=== PATIENT | male | born 1945 | race Caucasian/White ===

== ENCOUNTER 2024-03-29 14:06 | Emergency (ER) | payer SELFPAY ==
--- NOTE | 2024-03-29 14:46 | ED ---
General Adult HPI - General Chief complaint: Animal Bite Stated complaint: Animal bite Time Seen by Provider: 03/29/24 14:26 Source: patient, RN notes reviewed, old records reviewed Mode of arrival: ambulatory Limitations: no limitations - History of Present Illness Initial comments: 78-year-old male presenting with dog bite to the left arm. This occurred just prior to arrival. [place], a pit bull suddenly approached him and bit the left forearm. This was unprovoked. Police report was made and the dog is observable. The owners indicated that the dog was fully vaccinated. Patient is uncertain of his tetanus status. He has pain at the site of injury without significant bleeding. - Related Data Previous Rx's Medication Instructions Recorded Amoxic-Pot Clav 875-125Mg 1 tab PO Q12HR 5 Days #10 tab 03/29/24 [Augmentin 875-125] Allergies Allergy/AdvReac Type Severity Reaction Status Date / Time No Known Allergies Allergy Verified 03/29/24 14:13 Review of Systems ROS Statement: Those systems with pertinent positive or pertinent negative responses have been documented in the HPI. ROS Other: All systems not noted in ROS Statement are negative. Past Medical History Past Medical History: No Reported History Smoking Status: Never smoker Past Alcohol Use History: Occasional Past Drug Use History: None Reported General Exam Limitations: no limitations General appearance: alert, in no apparent distress Head exam: Present: atraumatic, normocephalic Eye exam: Present: normal appearance, PERRL ENT exam: Present: normal exam Neck exam: Present: normal inspection. Absent: tenderness, meningismus Respiratory exam: Present: normal lung sounds bilaterally. Absent: respiratory distress, wheezes Cardiovascular Exam: Present: regular rate, normal rhythm Extremities exam: Present: other (3 separate puncture wounds on the left palmar surface of the mid forearm. Mild associated bruising. No repairable laceration. Full range of motion of the 5 digits on the left hand. Distal pulses intact.) Course Vital Signs 03/29/24 14:11 Temperature 97.5 F L Pulse Rate 70 Respiratory 18 Rate Blood Pressure 108/45 O2 Sat by Pulse 97 Oximetry Medical Decision Making - Medical Decision Making Was pt. sent in by a medical professional or institution (, PA, ORACLE DEVELOPER, urgent care, hospital, or prison...) When possible be specific @ -No Did you speak to anyone other than the patient for history (EMS, parent, family, police, friend...)? What history was obtained from this source @ -No Did you review nursing and triage notes (agree or disagree)? Why? @ -I reviewed and agree with nursing and triage notes Were old charts reviewed (outside hosp., previous admission, EMS record, old EKG, old radiological studies, urgent care reports/EKG's, prison records)? Report findings @ -No old charts were reviewed Differential Diagnosis: Traumatic injury from dog bite, puncture wound, infection, laceration, EKG interpreted by me (3pts min.). @ -As above X-rays interpreted by me (1pt min.). @ -None done CT interpreted by me (1pt min.). @ -None done U/S interpreted by me (1pt. min.). @ -None done What testing was considered but not performed or refused? (CT, X-rays, U/S, labs)? Why? @ -None What meds were considered but not given or refused? Why? @ -None Did you discuss the management of the patient with other professionals (professionals i.e. , PA, ORACLE DEVELOPER, lab, RT, psych nurse, director social, railway yard assistant, teacher, contracts officer, welfare case worker)? Give summary @ -No Was smoking cessation discussed for >3mins.? @ -No Was critical care preformed (if so, how long)? @ -No Were there social determinants of health that impacted care today? How? (Homelessness, low income, unemployed, alcoholism, drug addiction, transportation, low edu. Level, literacy, decrease access to med. care, group home, rehab)? @ -No Was there de-escalation of care discussed even if they declined (Discuss DNR or withdrawal of care, Hospice)? DNR status @ -No What co-morbidities impacted this encounter? (DM, HTN, Smoking, COPD, CAD, Cancer, CVA, ARF, Chemo, Hep., AIDS, mental health diagnosis, sleep apnea, morbid obesity)? @ -None Was patient admitted / discharged? Hospital course, mention meds given and route, prescriptions, significant lab abnormalities, going to OR and other perti nent info. @ -78-year-old male presenting with a dog bite to the left forearm. Puncture wounds only, no repairable laceration. Tetanus is updated. Patient started on prophylactic antibiotics. I was able to extensively irrigate the puncture wounds. The dog is observable and a police report has been made. Undiagnosed new problem with uncertain prognosis? @ -No Drug Therapy requiring intensive monitoring for toxicity (Heparin, Nitro, Insulin, Cardizem)? @ -No Were any procedures done? @ -No Diagnosis/symptom? @ -Dog bite Acute, or Chronic, or Acute on Chronic? @Acute Uncomplicated (without systemic symptoms) or Complicated (systemic symptoms)? @ -Default Side effects of treatment? @ -No Exacerbation, Progression, or Severe Exacerbation? @ -No Poses a threat to life or bodily function? How? (Chest pain, [place], [place], pneumonia, PE, COPD, DKA, ARF, appy, cholecystitis, CVA, Diverticulitis, Homicidal, Suicidal, threat to staff... and all critical care pts) @ -No Disposition Clinical Impression: Dog bite Disposition: HOME SELF-CARE Instructions (If sedation given, give patient instructions): Animal Bite (ED) Prescriptions: Amoxic-Pot Clav 875-125Mg [Augmentin 875-125] 1 tab PO Q12HR 5 Days #10 tab Is patient prescribed a controlled substance at d/c from ED?: No Referrals: Nonstaff,Physician [Primary Care Provider] - 1-2 days Time of Disposition: 14:45
[2024-03-29] MEDS: AMOXIC-POT CLAV 875-125MG 1 EACH TAB PO STA (14:47)
[2024-03-29] MEDS: DIPH,PERTUS(ACELL)TETVAC-LF 0.5 ML VIAL IM ONE (14:48)
[2024-03-29 15:00] VITALS: BP 121/76; PULSE 74; RESP 17; TEMP 98
== END 2024-03-29 15:00 | disposition home or self-care (01) ==
LOC: EC 14:06
DX: S41.152A Open bite of left upper arm, initial encounter (principal); S51.832A Puncture wound without foreign body of left forearm, initial encounter; Z23 Encounter for immunization; W54.0XXA Bitten by dog, initial encounter
CPT/HCPCS: 90471; 90715; 99283

== ENCOUNTER 2024-05-13 13:55 | Observation (INO) | payer OTHER ==
--- NOTE | 2024-05-13 14:31 | ED ---
General Adult HPI - General Chief complaint: Chest Pain Stated complaint: Covid +,LUZMA Time Seen by Provider: 05/13/24 14:05 Source: patient, RN notes reviewed, old records reviewed Mode of arrival: ambulatory Limitations: no limitations - History of Present Illness Initial comments: Is a 78-year-old male who presents to the emergency department stating that he woke up today had a headache and some chest pain and was mildly short of breath and stated that he did not feel very well. Patient states he took a COVID test and it was positive. Patient states his chest pain is right in the center of her chest and got pretty significant especially when he exerted himself upon walking into the building. Patient denies any fever or chills. Patient denies abdominal pain patient has any nausea vomiting diarrhea - Related Data Previous Rx's Medication Instructions Recorded Amoxic-Pot Clav 875-125Mg 1 tab PO Q12HR 5 Days #10 tab 03/29/24 [Augmentin 875-125] Allergies Allergy/AdvReac Type Severity Reaction Status Date / Time No Known Allergies Allergy Verified 05/13/24 14:04 Review of Systems ROS Statement: Those systems with pertinent positive or pertinent negative responses have been documented in the HPI. ROS Other: All systems not noted in ROS Statement are negative. Past Medical History Past Medical History: No Reported History Smoking Status: Never smoker Past Alcohol Use History: Occasional Past Drug Use History: None Reported General Exam - General Exam Comments Initial Comments: GENERAL: Patient is well-developed and well-nourished. Patient is nontoxic and well- hydrated and is in mild distress. ENT: Neck is soft and supple. No significant lymphadenopathy is noted. Oropharynx is clear. Moist mucous membranes. Neck has full range of motion without eliciting any pain. EYES: The sclera were anicteric and conjunctiva were pink and moist. Extraocular movements were intact and pupils were equal round and reactive to light. Eyelids were unremarkable. PULMONARY: Unlabored respirations. Good breath sounds bilaterally. No audible rales rhonchi or wheezing was noted. CARDIOVASCULAR: There is a regular rate and rhythm without any murmurs gallops or rubs. ABDOMEN: Soft and nontender with normal bowel sounds. SKIN: Skin is clear with no lesions or rashes and otherwise unremarkable. NEUROLOGIC: Patient is alert and oriented x3. Cranial nerves II through XII are grossly intact. Motor and sensory are also intact. Normal speech, volume and content. Symmetrical smile. MUSCULOSKELETAL: Normal extremities with adequate strength and full range of motion. LYMPHATICS: No significant lymphadenopathy is noted PSYCHIATRIC: Normal psychiatric evaluation. Limitations: no limitations Course Vital Signs 05/13/24 05/13/24 05/13/24 14:02 14:05 15:05 Temperature 98.4 F Pulse Rate 75 65 68 Respiratory 18 16 16 Rate Blood Pressure 189/80 173/78 168/80 O2 Sat by Pulse 95 99 98 Oximetry 05/13/24 16:00 Temperature Pulse Rate 68 Respiratory 16 Rate Blood Pressure 170/86 O2 Sat by Pulse 98 Oximetry Medical Decision Making - Medical Decision Making EKG is interpreted by myself EKG shows a sinus rhythm at 73 bpm parables 180 QRS is 122 QT interval is 405 QTc is 430. Patient's EKG shows no ST segment elevation however there is some slight ST segment depression in leads V3 and V4 patient also has a right bundle branch block. was pt. sent in by a medical professional or institution (, PA, KALSOMINER, urgent care, hospital, or [facility]...) When possible be specific @ -No Did you speak to anyone other than the patient for history (EMS, parent, family, police, friend...)? What history was obtained from this source @ -No Did you review nursing and triage notes (agree or disagree)? Why? @ -I reviewed and agree with nursing and triage notes Were old charts reviewed (outside hosp., previous admission, EMS record, old EKG, old radiological studies, urgent care reports/EKG's, [facility] records)? Report findings @ -No old charts were reviewed Differential Diagnosis? @ -Differential Chest Pain: Stable Angina, Unstable Angina, STEMI, NSTEMI Aortic Dissection, Pneumothorax, Musculoskeletal, Esophageal Spasm GERD, Cholecystitis, Pancreatitis, Zoster, this is not meant to be an all-inclusive list. EKG interpreted by me (3pts min.). @ -As above X-rays interpreted by me (1pt min.). @ -Chest x-ray shows no acute abnormality CT interpreted by me (1pt min.). @ -None done U/S interpreted by me (1pt. min.). @ -None done What testing was considered but not performed or refused? (CT, X-rays, U/S, labs)? Why? @ -None What meds were considered but not given or refused? Why? @ -None Did you discuss the management of the patient with other professionals (professionals i.e. , PA, KALSOMINER, lab, RT, psych nurse, oncology social work, donor relations coordinator, teacher, founder chairman and chief creative officer, showcase trimmer)? Give summary @ -I spoke with Dr. David he agreed to admit the patient admit the patient I wrote admitting orders Was smoking cessation discussed for >3mins.? @ -No Was critical care preformed (if so, how long)? @ -No Were there social determinants of health that impacted care today? How? (Homelessness, low income, unemployed, alcoholism, drug addiction, transportation, low edu. Level, literacy, decrease access to med. care, fdc, rehab)? @ -No Was there de-escalation of care discussed even if they declined (Discuss DNR or withdrawal of care, Hospice)? DNR status @ -No What co-morbidities impacted this encounter? (DM, HTN, Smoking, COPD, CAD, Cancer, CVA, ARF, Chemo, Hep., AIDS, mental health diagnosis, sleep apnea, morbid obesity)? @ -None Was patient admitted / discharged? Hospital course, mention meds given and route, prescriptions, significant lab abnormalities, going to OR and other pertinent info. @ -I went back into the room to reevaluate the patient patient continued to have substernal chest pain that radiated to his back. Undiagnosed new problem with uncertain prognosis? @ -No Drug Therapy requiring intensive monitoring for toxicity (Heparin, Nitro, Insulin, Cardizem)? @ -No Were any procedures done? @ -No Diagnosis/symptom? @ -COVID Acute, or Chronic, or Acute on Chronic? @ -Acute Uncomplicated (without systemic symptoms) or Complicated (systemic symptoms)? @ -Complicated Side effects of treatment? @ -No Exacerbation, Progression, or Severe Exacerbation? @ -No Poses a threat to life or bodily function? How? (Chest pain, [place], [place], pneumonia, PE, COPD, DKA, ARF, appy, cholecystitis, CVA, Diverticulitis, Homicidal, Suicidal, threat to staff... and all critical care pts) @ -No Diagnosis/symptom? @ -Chest pain Acute, or Chronic, or Acute on Chronic? @ -Acute Uncomplicated (without systemic symptoms) or Complicated (systemic symptoms)? @ -Complicated Side effects of treatment? @ -None Exacerbation, Progression, or Severe Exacerbation] @ -No Poses a threat to life or bodily function? @ -Yes this could lead to an [place] and endorgan dysfunction - Lab Data Result diagrams: 05/13/24 14:22 05/13/24 14:22 Lab Results 05/13/24 05/13/24 05/13/24 Range/Units 14:22 14:22 14:22 WBC 8.1 (3.8-10.6) k/uL RBC 6.19 H (4.30-5.90) m/uL Hgb 13.4 (13.0-17.5) gm/dL Hct 42.6 (39.0-53.0) % MCV 68.8 L (80.0-100.0) fL MCH 21.6 L (25.0-35.0) pg MCHC 31.5 (31.0-37.0) g/dL RDW 16.0 H (11.5-15.5) % Plt Count 135 L (150-450) k/uL MPV 7.2 Neutrophils % 75 % Lymphocytes % 12 % Monocytes % 8 % Eosinophils % 1 % Basophils % 1 % Neutrophils # 6.1 (1.3-7.7) k/uL Lymphocytes # 1.0 (1.0-4.8) k/uL Monocytes # 0.7 (0-1.0) k/uL Eosinophils # 0.1 (0-0.7) k/uL Basophils # 0.0 (0-0.2) k/uL Hypochromasia Moderate Anisocytosis Slight Microcytosis Marked PT 10.7 (10.0-12.5) sec INR 1.0 (<1.2) APTT 25.9 (22.0-30.0) sec Sodium 136 L (137-145) mmol/L Potassium 4.2 (3.5-5.1) mmol/L Chloride 105 (98-107) mmol/L Carbon Dioxide 24 (22-30) mmol/L Anion Gap 7 mmol/L BUN 15 (9-20) mg/dL Creatinine 0.86 (0.66-1.25) mg/dL Est GFR (CKD-EPI)AfAm >90 (>60 ml/min/1.73 sqM) Est GFR (CKD-EPI)NonAf 84 (>60 ml/min/1.73 sqM) Glucose 126 H (74-99) mg/dL Calcium 9.0 (8.4-10.2) mg/dL Magnesium 1.8 (1.6-2.3) mg/dL Total Bilirubin 1.4 H (0.2-1.3) mg/dL AST 29 (17-59) U/L ALT 21 (4-49) U/L Alkaline Phosphatase 66 (38-126) U/L Troponin I (0.000-0.034) ng/mL NT-Pro-B Natriuret Pep 757 pg/mL Total Protein 7.3 (6.3-8.2) g/dL Albumin 4.1 (3.5-5.0) g/dL Influenza Type A (PCR) (Not Detectd) Influenza Type B (PCR) (Not Detectd) RSV (PCR) (Not Detectd) SARS-CoV-2 (PCR) (Not Detectd) 05/13/24 05/13/24 Range/Units 14:22 14:24 WBC (3.8-10.6) k/uL RBC (4.30-5.90) m/uL Hgb (13.0-17.5) gm/dL Hct (39.0-53.0) % MCV (80.0-100.0) fL MCH (25.0-35.0) pg MCHC (31.0-37.0) g/dL RDW (11.5-15.5) % Plt Count (150-450) k/uL MPV Neutrophils % % Lymphocytes % % Monocytes % % Eosinophils % % Basophils % % Neutrophils # (1.3-7.7) k/uL Lymphocytes # (1.0-4.8) k/uL Monocytes # (0-1.0) k/uL Eosinophils # (0-0.7) k/uL Basophils # (0-0.2) k/uL Hypochromasia Anisocytosis Microcytosis PT (10.0-12.5) sec INR (<1.2) APTT (22.0-30.0) sec Sodium (137-145) mmol/L Potassium (3.5-5.1) mmol/L Chloride (98-107) mmol/L Carbon Dioxide (22-30) mmol/L Anion Gap mmol/L BUN (9-20) mg/dL Creatinine (0.66-1.25) mg/dL Est GFR (CKD-EPI)AfAm (>60 ml/min/1.73 sqM) Est GFR (CKD-EPI)NonAf (>60 ml/min/1.73 sqM) Glucose (74-99) mg/dL Calcium (8.4-10.2) mg/dL Magnesium (1.6-2.3) mg/dL Total Bilirubin (0.2-1.3) mg/dL AST (17-59) U/L ALT (4-49) U/L Alkaline Phosphatase (38-126) U/L Troponin I <0.012 (0.000-0.034) ng/mL NT-Pro-B Natriuret Pep pg/mL Total Protein (6.3-8.2) g/dL Albumin (3.5-5.0) g/dL Influenza Type A (PCR) Not Detected (Not Detectd) Influenza Type B (PCR) Not Detected (Not Detectd) RSV (PCR) Not Detected (Not Detectd) SARS-CoV-2 (PCR) Detected A (Not Detectd) Disposition Clinical Impression: COVID, Chest pain Disposition: ADMITTED IP TO THIS HOSP Referrals: Nonstaff,Physician [Primary Care Provider] - 1-2 days Time of Disposition: 17:13
[2024-05-13] MEDS: SODIUM CHLORIDE 0.9% 500 ML 500 ML IV STA (14:41)
[2024-05-13 14:55] LABS: Anisocytosis Slight; Basophils % (A) 1 %; Eosinophils # (A) 0.1 k/uL (0-0.7); Eosinophils % (A) 1 %; HCT 42.6 % (39.0-53.0); HGB 13.4 gm/dL (13.0-17.5); Hypochromasia Moderate; Lymphocytes % (A) 12 %; MCH 21.6 pg (25.0-35.0); MCHC 31.5 g/dL (31.0-37.0); MCV 68.8 fL (80.0-100.0); Mean Platelet Volume 7.2; Microcytosis Marked; Monocytes # (A) 0.7 k/uL (0-1.0); Monocytes % (A) 8 %; Neutrophils # (A) 6.1 k/uL (1.3-7.7); Neutrophils % (A) 75 %; Platelet Count 135 k/uL (150-450); RBC 6.19 m/uL (4.30-5.90); WBC 8.1 k/uL (3.8-10.6)
[2024-05-13 15:13] LABS: ALT 21 U/L (4-49); AST 29 U/L (17-59); African American GFR (CKD) >90 (>60 ml/min/1.73 sqM); Albumin 4.1 g/dL (3.5-5.0); Alkaline Phosphatase 66 U/L (38-126); Anion Gap 7 mmol/L; Blood Urea Nitrogen 15 mg/dL (9-20); Carbon Dioxide 24 mmol/L (22-30); Chloride 105 mmol/L (98-107); Glucose 126 mg/dL (74-99); Magnesium 1.8 mg/dL (1.6-2.3); Non-African American GFR(CKD) 84 (>60 ml/min/1.73 sqM); Potassium 4.2 mmol/L (3.5-5.1); Sodium 136 mmol/L (137-145); Total Bilirubin 1.4 mg/dL (0.2-1.3); Total Protein 7.3 g/dL (6.3-8.2)
[2024-05-13 15:21] LABS: NT-Pro-B-Type Natriuretic Pept 757 pg/mL
--- NOTE | 2024-05-13 15:22 | XR ---
EXAMINATION TYPE: XR chest 2V DATE OF EXAM: 05/13/2024 COMPARISON: NONE TECHNIQUE: PA and lateral views submitted. HISTORY: Chest pain and cough FINDINGS: The lungs are clear and there is no pneumothorax, pleural effusion, or focal pneumonia. Heart size normal and no overt failure. Osseous structures demonstrate hypertrophic and degenerative changes of the spine. Postsurgical change overlying the cervical spine. Arthropathy of the shoulders. IMPRESSION: 1. No acute process.
[2024-05-13 15:28] LABS: Partial Thromboplastin Time 25.9 sec (22.0-30.0); Prothrombin Time 10.7 sec (10.0-12.5)
[2024-05-13] MEDS ORDERED: NITROGLYCERIN SL TABS 0.4 MG TAB SUBLINGUAL PRN (17:15)
[2024-05-13] MEDS: NITROGLYCERIN OINT 1 INCH/GM PACKET TOPICAL SCH (17:38)
[2024-05-13] MEDS ORDERED: SENNOSIDES 8.6 MG TAB PO PRN (18:07)
[2024-05-13] MEDS ORDERED: hydrOXYzine HCL 25 MG TAB PO PRN (18:07)
[2024-05-13] MEDS: amLODIPine 5 MG TAB PO SCH (18:09)
[2024-05-13] MEDS ORDERED: BENZONATATE 100 MG CAP PO PRN (18:11)
[2024-05-13] MEDS: ASPIRIN 81 MG PO STA (18:22)
--- NOTE | 2024-05-13 18:23 | P.HPIM ---
History of Present Illness H&P Date: 05/13/24 History of Presenting Illness: Patient is a very pleasant 78-year-old male with a past medical history of rheumatoid arthritis, hypertension, and BPH. He presented to the emergency department with a chief complaint of chest pain. Patient reports generalized fatigue over the past couple of days but states he awoken this morning with a headache, chest pain, shortness of breath, productive cough, body aches, and overall feeling unwell. He reports that he took a home COVID test which resulted positive so he assumed his symptoms were simply from this infection. However patient reports he continued to have persistent worsening pain to midsternal chest and increasing dyspnea with any exertion so he came to the emergency department for evaluation. Patient denies having any fevers, chills, diaphoresis, dizziness, lightheadedness, palpitations, abdominal pain, nausea, vomiting, diarrhea, or experiencing any numbness/tingling/weakness/swelling in his extremities. Upon arrival to our facility patient underwent evaluation in the emergency department. Vital signs upon arrival show blood pressure 189/80, heart rate 75, respiratory rate 18, temp 98.4 F, and SpO2 of 95% on room air. EKG was completed showing normal sinus rhythm at 73 bpm with right bundle branch block and no significant T wave or ST abnormalities showing no signs of acute ischemia upon personal review and interpretation. Chest x-ray was negative for acute cardiopulmonary process. Labs were completed and reviewed. CBC showing thrombocytopenia with platelet count of 135. Coagulation profile normal findings. BMP unremarkable. Magnesium 1.8. Liver profile showing elevated total bili of 1.4 otherwise normal findings. Troponin was less than 0.012 and proBNP was 757. Influenza A, influenza B, and RSV were negative. COVID PCR was positive. Patient admitted under our services with consultation to cardiology. Heart Score 5. Review of systems: Pertinent positives and negatives as discussed in HPI, a complete review of systems was performed and all other systems are negative. Physical exam: Vital signs reviewed and stable. General: Nontoxic, no distress and appears stated age. Derm: Skin warm and dry, normal coloration for ethnicity. Head: Atraumatic, normocephalic and symmetric. Eyes: EOM's intact, no lid lag, and anicteric sclera Mouth: no lip lesions, mucus membranes moist Cardiovascular: regular rate and rhythm with normal S1S2, no murmur, positive posterior tibial pulses bilaterally, and cap refill < 2 seconds. Lungs: Respirations even, regular, and unlabored on room air. Lungs CTA bilaterally, no rhonchi, no rales, no wheezing, and no accessory muscle usage. Abdominal: soft, nontender to palpation, no guarding, no appreciable organomegaly Ext: ROM intact. No gross muscle atrophy, no edema, no contractures Neuro: Speech clear, face symmetrical and CN II-XII grossly intact with no noted focal neuro deficits Psych: Alert and oriented to person, place, time, and situation. Appropriate and pleasant affect. 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 -Consult placed to cardiology, appreciate recommendations -Trend troponins and obtain a stat D-dimer -Patient started on daily aspirin 81 mg daily, atorvastatin 40 mg nightly, and to continue daily medication regimen with nifedipine 30 mg daily. -Symptomatic care and pain management with scheduled Robitussin 200 mg p.o. every 6 hours and Tessalon as needed for persistent cough -Oxygenation to be administered as needed and titrated as needed to maintain SPO2 equal to or greater than 90%. Currently maintaining SpO2 on room air. -Telemetry monitoring. -Encourage Incentive Spirometry 10-15x hourly while awake -DVT prophylaxis with Lovenox. -Strict Droplet plus Contact precautions -Continued close monitoring with repeat a.m. labs. Data and imaging reviewed: As stated above in HPI. The patient is admitted with an anticipated less than 2 midnight stay for evaluation of pain CODE STATUS: Full code DVT prophylaxis: Lovenox Anticipated discharge date: Pending clinical course, likely 24 to [address]: Home Patient was seen independently by Nurse Practitioner. This document was prepared using [employer] dictation software. Please allow for er rors in [employer] team member while rare they do occur. Past Medical History Past Medical History: No Reported History Smoking Status: Never smoker Past Alcohol Use History: Occasional Past Drug Use History: None Reported Medications and Allergies Home Medications Medication Instructions Recorded Confirmed Type Etanercept [Enbrel] 50 mg SQ MO 05/13/24 05/13/24 History Multivitamins, Thera [Multivitamin 1 tab PO DAILY 05/13/24 05/13/24 History (formulary)] NIFEdipine [Adalat CC] 30 mg PO DAILY PRN 05/13/24 05/13/24 History [place]-3/Dha/Epa/Fish Oil [Fish Oil 2 cap PO DAILY 05/13/24 05/13/24 History 1,000 mg Softgel] Sennosides [Senokot] 8.6 mg PO DAILY PRN 05/13/24 05/13/24 History Tamsulosin HCl [Flomax] 0.4 mg PO HS 05/13/24 05/13/24 History hydrOXYzine HCL [Atarax] 25 mg PO HS PRN 05/13/24 05/13/24 History Allergies Allergy/AdvReac Type Severity Reaction Status Date / Time No Known Allergies Allergy Verified 05/13/24 17:30 Physical Exam Vitals: Vital Signs Temp Pulse Resp BP Pulse Ox 05/13/24 17:00 68 16 135/68 98 05/13/24 16:00 68 16 170/86 98 05/13/24 15:05 68 16 168/80 98 05/13/24 14:05 65 16 173/78 99 05/13/24 14:02 98.4 F 75 18 189/80 95 Intake and Output 05/13/24 05/13/24 05/13/24 06:59 14:59 22:59 Other: Weight 90.718 kg Results CBC & Chem 7: 05/13/24 14:22 05/13/24 14:22 Labs: Abnormal Lab Results - Last 24 Hours (Table) 05/13/24 05/13/24 05/13/24 Range/Units 14:22 14:22 14:24 RBC 6.19 H (4.30-5.90) m/uL MCV 68.8 L (80.0-100.0) fL MCH 21.6 L (25.0-35.0) pg RDW 16.0 H (11.5-15.5) % Plt Count 135 L (150-450) k/uL Sodium 136 L (137-145) mmol/L Glucose 126 H (74-99) mg/dL Total Bilirubin 1.4 H (0.2-1.3) mg/dL SARS-CoV-2 (PCR) Detected A (Not Detectd)
[2024-05-13] MEDS: guaiFENesin SYRUP 100MG/5ML 200 MG/10 ML CUP PO SCH (19:02)
[2024-05-13] MEDS: ATORVASTATIN 40 MG TAB PO SCH (22:07)
[2024-05-13] MEDS: TAMSULOSIN 0.4 MG CAP.ER.24H PO SCH (22:08)
[2024-05-13] MEDS: ENOXAPARIN 100 MG/ML SYRINGE SQ SCH (23:35)
[2024-05-14] MEDS ORDERED: ENOXAPARIN 40 MG/0.4 ML SYRINGE SQ SCH (09:00)
[2024-05-14] MEDS ORDERED: ASPIRIN 325 MG TAB PO SCH (09:00)
[2024-05-14] MEDS ORDERED: NON FORMULARY DRUG (Omega-3/Dha/Epa/Fish Oil [Fish Oil 1,000 Mg Softgel] 1 EACH Capsule) PO SCH (09:00)
[2024-05-14 09:11] LABS: HCT 38.7 % (39.6-50.0); HGB 12.3 g/dL (13.0-17.0); MCH 21.3 pg (27.0-32.0); MCHC 31.8 g/dL (32.0-37.0); NRBC Per 100 WBC 0 X 10*3/uL (0.00-0.01); Platelet Count 129 X 10*3/uL (140-440); RBC 5.78 X 10*6/uL (4.40-5.60); RDW 17.8 % (11.5-14.5); WBC 6.09 X 10*3/uL (4.50-10.00)
[2024-05-14 09:24] LABS: Chol/HDL Ratio 3.49 Ratio; LDL Cholesterol,Calculated 82.7 mg/dL (0.0-131.0); Magnesium 1.8 mg/dL (1.5-2.4); VLDL Calculation 13.58 mg/dL (5.00-40.00)
[2024-05-14 09:25] LABS: ALT 20 U/L (10-49); AST 18 U/L (14-35); Albumin 3.9 g/dL (3.8-4.9); Alkaline Phosphatase 55 U/L (41-126); BUN/Creat Ratio 12.62 Ratio (12.00-20.00); Blood Urea Nitrogen 10.1 mg/dL (9.0-27.0); Calcium 8.3 mg/dL (8.7-10.3); Carbon Dioxide 22.4 mmol/L (21.6-31.8); Chloride 104 mmol/L (96-109); Globulin 2.6 g/dL (1.6-3.3); Glucose 98 mg/dL (70-110); Potassium 3.8 mmol/L (3.5-5.5); Sodium 136 mmol/L (135-145); Total Bilirubin 0.7 mg/dL (0.3-1.2); Total Protein 6.5 g/dL (6.2-8.2)
--- NOTE | 2024-05-14 10:19 | P.CRDCN ---
History of Present Illness Consult date: 05/14/24 Reason for Consult (text): Chest pain History of present illness: This is a 78-year-old male with past medical history of rheumatoid arthritis, hypertension, benign prostatic hypertrophy. We have been asked to evaluate the patient for chest pain. Patient presented with complaints of headache chest discomfort, shortness of breath cough with bodyaches generalized fatigue. He did test positive for COVID and is in COVID isolation. No chest pain at this time. Blood pressure 155/72, heart rate 65, pulse ox 94% on room air. Patient resides in [place]. EKG: Sinus rhythm with right bundle branch block Chest x-ray: No acute process. Laboratory studies: WBC 6, hemoglobin 12.3, platelet count 129. Electrolytes and renal function are normal. Troponins 0.012, 0.017, 0.061. Triglycerides 67, cholesterol 135, LDL 82, HDL 38. Influenza A, influenza B, RSV not detected, positive COVID-19. Home cardiac medications: Nifedipine 30 mg daily as needed Review Of Systems: At the time of my exam: CONSTITUTIONAL: Denies fever or chills. HEENT: Denies blurred vision, vision changes, or eye pain. Denies hemoptysis CARDIOVASCULAR: Denies chest pain. Denies orthopnea. Denies PND. Denies palpitations RESPIRATORY: Denies shortness of breath. GASTROINTESTINAL: Denies abdominal pain. Denies nausea or vomiting. HEMATOLOGIC: Denies bleeding disorders. GENITOURINARY: Denies any blood in urine. SKIN: Denies puritis. Denies rash. Physical examination: Gen: This is a 78-year-old male in no acute distress VS: reviewed Physical examination deferred due to COVID-19 isolation Assessment: COVID-19 Atypical chest pain Mild elevation in third troponin most likely secondary to COVID-19 Hypertension Benign prostatic hypertrophy Rheumatoid arthritis Plan: Resume patient's home cardiac medications Obtain limited echocardiogram If echocardiogram is unremarkable, no plan for any further cardiac intervention and patient is cleared for discharge. Thank you kindly for this consultation. Nurse practitioner note has been reviewed, I agree with documented findings and plan of care. Patient was seen and examined. Past Medical History Past Medical History: No Reported History History of Any Multi-Drug Resistant Organisms: None Reported Past Surgical History: Orthopedic Surgery Additional Past Surgical History / Comment(s): neck surgery; right knee surgery; right shoulder surgery; lower back Past Anesthesia/Blood Transfusion Reactions: No Reported Reaction Past Psychological History: No Psychological Hx Reported Smoking Status: Never smoker Past Alcohol Use History: Occasional Past Drug Use History: None Reported Medications and Allergies Home Medications Medication Instructions Recorded Confirmed Type Etanercept [Enbrel] 50 mg SQ MO 05/13/24 05/13/24 History Multivitamins, Thera [Multivitamin 1 tab PO DAILY 05/13/24 05/13/24 History (formulary)] NIFEdipine [Adalat CC] 30 mg PO DAILY PRN 05/13/24 05/13/24 History [place]-3/Dha/Epa/Fish Oil [Fish Oil 2 cap PO DAILY 05/13/24 05/13/24 History 1,000 mg Softgel] Sennosides [Senokot] 8.6 mg PO DAILY PRN 05/13/24 05/13/24 History Tamsulosin HCl [Flomax] 0.4 mg PO HS 05/13/24 05/13/24 History hydrOXYzine HCL [Atarax] 25 mg PO HS PRN 05/13/24 05/13/24 History Allergies Allergy/AdvReac Type Severity Reaction Status Date / Time No Known Allergies Allergy Verified 05/13/24 17:30 Physical Exam Vitals: Vital Signs Temp Pulse Pulse Resp BP BP Pulse Ox 05/14/24 08:37 94 L 05/14/24 07:00 99.0 F 65 19 155/72 94 L 05/14/24 03:00 99.6 F 68 20 132/63 93 L 05/13/24 21:00 98.3 F 67 16 163/56 97 05/13/24 18:42 68 16 180/90 98 05/13/24 18:00 74 16 140/86 98 05/13/24 17:00 68 16 135/68 98 05/13/24 16:00 68 16 170/86 98 05/13/24 15:05 68 16 168/80 98 05/13/24 14:05 65 16 173/78 99 05/13/24 14:02 98.4 F 75 18 189/80 95 Intake and Output 05/13/24 05/14/24 05/14/24 22:59 06:59 14:59 Other: Voiding Method Toilet # Voids 1 1 Weight 90.718 kg Results 05/14/24 03:02 05/14/24 03:02 Cardiac Enzymes 05/13/24 05/13/24 05/13/24 Range/Units 14:22 14:22 18:26 AST 29 (17-59) U/L Troponin I <0.012 0.017 (0.000-0.034) ng/mL 05/13/24 Range/Units 21:28 AST (17-59) U/L Troponin I 0.061 H* (0.000-0.034) ng/mL Coagulation 05/13/24 Range/Units 14:22 PT 10.7 (10.0-12.5) sec APTT 25.9 (22.0-30.0) sec CBC 05/13/24 Range/Units 14:22 WBC 8.1 (3.8-10.6) k/uL RBC 6.19 H (4.30-5.90) m/uL Hgb 13.4 (13.0-17.5) gm/dL Hct 42.6 (39.0-53.0) % Plt Count 135 L (150-450) k/uL Comprehensive Metabolic Panel 05/13/24 Range/Units 14:22 Sodium 136 L (137-145) mmol/L Potassium 4.2 (3.5-5.1) mmol/L Chloride 105 (98-107) mmol/L Carbon Dioxide 24 (22-30) mmol/L BUN 15 (9-20) mg/dL Creatinine 0.86 (0.66-1.25) mg/dL Glucose 126 H (74-99) mg/dL Calcium 9.0 (8.4-10.2) mg/dL AST 29 (17-59) U/L ALT 21 (4-49) U/L Alkaline Phosphatase 66 (38-126) U/L Total Protein 7.3 (6.3-8.2) g/dL Albumin 4.1 (3.5-5.0) g/dL Current Medications Generic Name Dose Route Start Last Admin Trade Name Freq PRN Reason Stop Dose Admin Aspirin 81 mg 05/14/24 09:00 Aspirin 81 Mg PO DAILY HOLLI Atorvastatin Calcium 40 mg 05/13/24 21:00 05/13/24 22:07 Atorvastatin 40 Mg Tab PO 40 mg HS HOLLI Administration Benzonatate 200 mg 05/13/24 18:11 Benzonatate 100 Mg Cap PO TID PRN Cough Enoxaparin Sodium 90 mg 05/13/24 23:00 05/13/24 23:35 Enoxaparin 100 Mg/Ml Syringe SQ 90 mg BID [facility] Administration Guaifenesin 200 mg 05/13/24 18:15 05/14/24 06:14 Guaifenesin Syrup 100mg/5ml 200 Mg/10 Ml Cup PO 200 mg Q6HR HOLLI Administration Hydroxyzine HCl 25 mg 05/13/24 18:07 Hydroxyzine Hcl 25 Mg Tab PO HS PRN Insomnia Multivitamins 1 each 05/14/24 09:00 Multivitamins, Thera 1 Each Tab PO DAILY [facility] Nifedipine 30 mg 05/14/24 09:00 Nifedipine Xl 30 Mg Tab.Er.24 PO DAILY [facility] Nitroglycerin 0.4 mg 05/13/24 17:15 Nitroglycerin Sl Tabs 0.4 Mg Tab SUBLINGUAL Q5M PRN Chest Pain Nitroglycerin 1 inch 05/13/24 18:00 05/14/24 06:14 Nitroglycerin Oint 1 Inch/Gm Packet TOPICAL Not Given Q6HR [facility] Senna 8.6 mg 05/13/24 18:07 Sennosides 8.6 Mg Tab PO DAILY PRN Constipation Tamsulosin HCl 0.4 mg 05/13/24 21:00 05/13/24 22:08 Tamsulosin 0.4 Mg Cap.Er.24h PO 0.4 mg HS [facility] Administration Intake and Output 05/13/24 05/14/24 05/14/24 22:59 06:59 14:59 Other: Voiding Method Toilet # Voids 1 1 Weight 90.718 kg 05/13/24 14:22 05/13/24 14:22
[2024-05-14] MEDS: ASPIRIN 81 MG PO SCH (11:47)
[2024-05-14] MEDS: MULTIVITAMINS, THERA 1 EACH TAB PO SCH (11:48)
[2024-05-14] MEDS: NIFEdipine XL 30 MG TAB.ER.24 PO SCH (11:48)
[2024-05-14] MEDS ORDERED: HYDROcodone/APAP 5-325MG 1 EACH TAB PO PRN (14:52)
--- NOTE | 2024-05-14 14:56 | P.PN ---
Subjective Progress Note Date: 05/14/24 Hospital course: Patient is a very pleasant 78-year-old male with a past medical history of rheumatoid arthritis, hypertension, and BPH. He presented to the emergency department with a chief complaint of chest pain. Patient reports generalized fatigue over the past couple of days but states he awoken this morning with a headache, chest pain, shortness of breath, productive cough, body aches, and overall feeling unwell. He reports that he took a home COVID test which resulted positive so he assumed his symptoms were simply from this infection. However patient reports he continued to have persistent worsening pain to midsternal chest and increasing dyspnea with any exertion so he came to the emergency department for evaluation. Patient denies having any fevers, chills, diaphoresis, dizziness, lightheadedness, palpitations, abdominal pain, nausea, v omiting, diarrhea, or experiencing any numbness/tingling/weakness/swelling in his extremities. Upon arrival to our facility patient underwent evaluation in the emergency department. Vital signs upon arrival show blood pressure 189/80, heart rate 75, respiratory rate 18, temp 98.4 F, and SpO2 of 95% on room air. EKG was completed showing normal sinus rhythm at 73 bpm with right bundle branch block and no significant T wave or ST abnormalities showing no signs of acute ischemia upon personal review and interpretation. Chest x-ray was negative for acute cardiopulmonary process. Labs were completed and reviewed. CBC showing thrombocytopenia with platelet count of 135. Coagulation profile normal findings. BMP unremarkable. Magnesium 1.8. Liver profile showing elevated total bili of 1.4 otherwise normal findings. Troponin was less than 0.012 and proBNP was 757. Influenza A, influenza B, and RSV were negative. COVID PCR was positive. Patient admitted under our services with consultation to cardiology. Heart Score 5. Trended overnight resulting at less than 0.012, 0.017 and 0.061. Physical exam: Patient seen and fully evaluated at bedside. He reports midsternal chest pain remains but is improved when compared to yesterday. He continues to report uncontrolled cough with production of yellow sputum. Vital signs reviewed and stable. General: Nontoxic, no distress and appears stated age. Derm: Skin warm and dry, normal coloration for ethnicity. Head: Atraumatic, normocephalic and symmetric. Eyes: EOM's intact, no lid lag, and anicteric sclera Mouth: no lip lesions, mucus membranes moist Cardiovascular: regular rate and rhythm with normal S1S2, no murmur, positive posterior tibial pulses bilaterally, and cap refill < 2 seconds. Lungs: Respirations even, regular, and unlabored on room air. Lungs diminished with expiratory wheezing noted this morning. No crackles, rales, or rhonchi noted. Abdominal: soft, nontender to palpation, no guarding, no appreciable organomegaly Ext: ROM intact. No gross muscle atrophy, no edema, no contractures Neuro: Speech clear, face symmetrical and CN II-XII grossly intact with no noted focal neuro deficits Psych: Alert and oriented to person, place, time, and situation. Appropriate and pleasant affect. 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 -Cardiology evaluated recommending echocardiogram with no further workup at this time. -D-dimer was negative at 0.59. Troponins were trended resulting at less than 0.012, 0.017, and 0.061. -Continue aspirin 81 mg daily, atorvastatin 40 mg nightly, and to continue daily medication regimen with nifedipine 30 mg daily. -Symptomatic care and pain management with scheduled Robitussin 200 mg p.o. every 6 hours and Tessalon as needed for persistent cough -Oxygenation to be administered as needed and titrated as needed to maintain SPO2 equal to or greater than 90%. Currently maintaining SpO2 on room air. -Telemetry monitoring. -Encourage Incentive Spirometry 10-15x hourly while awake -DVT prophylaxis with Lovenox. -Strict Droplet plus Contact precautions -Order placed for repeat chest x-ray -Echocardiogram to be completed. Data and imaging reviewed: Labs completed and reviewed. CBC showing bicytopenia with hemoglobin of 12.3 and platelet count of 129. BMP unremarkable. Magnesium 1.8. Liver profile normal findings. Lipid profile unremarkable with the exception of low HDL of 38.70. D-dimer was negative at 0.59. Troponins were trended resulting at less than 0.012, 0.017, and 0.061. Vital signs reviewed. Blood pressure 155/72, heart rate 65, respiratory rate 19, temp 99.0 F, and SpO2 of 94% on room air. CODE STATUS: Full code DVT prophylaxis: Lovenox Anticipated discharge date: Pending clinical course, likely 24 to [address]: Home Patient was seen independently by Nurse Practitioner. This document was prepared using [employer] dictation software. Please allow for errors in transcription coordinator while rare they do occur. Gerardo Bourgeois TECHNOLOGY EDUCATION TEACHER rendered care for this patient independently, reviewed the findings and plan as documented in the note above. I did not physically speak with or examine the patient on this date. Objective - Vital Signs Vital signs: Vital Signs Temp 99.0 F 05/14/24 07:00 Pulse 65 05/14/24 07:00 Resp 19 05/14/24 07:00 BP 155/72 05/14/24 07:00 Pulse Ox 94 L 05/14/24 08:37 FiO2 Intake & Output 05/13/24 05/14/24 05/14/24 18:59 06:59 18:59 Intake Total 0 Balance 0 Weight 90.718 kg 90.718 kg Intake: Oral 0 Other: Voiding Method Toilet # Voids 1 - Labs CBC & Chem 7: 05/14/24 03:02 05/14/24 03:02 Labs: Abnormal Lab Results - Last 24 Hours (Table) 05/13/24 05/13/24 05/13/24 Range/Units 14:22 14:22 14:24 RBC 6.19 H (4.30-5.90) m/uL MCV 68.8 L (80.0-100.0) fL MCH 21.6 L (25.0-35.0) pg RDW 16.0 H (11.5-15.5) % Plt Count 135 L (150-450) k/uL Sodium 136 L (137-145) mmol/L Glucose 126 H (74-99) mg/dL Total Bilirubin 1.4 H (0.2-1.3) mg/dL Troponin I (0.000-0.034) ng/mL SARS-CoV-2 (PCR) Detected A (Not Detectd) 05/13/24 Range/Units 21:28 RBC (4.30-5.90) m/uL MCV (80.0-100.0) fL MCH (25.0-35.0) pg RDW (11.5-15.5) % Plt Count (150-450) k/uL Sodium (137-145) mmol/L Glucose (74-99) mg/dL Total Bilirubin (0.2-1.3) mg/dL Troponin I 0.061 H* (0.000-0.034) ng/mL SARS-CoV-2 (PCR) (Not Detectd)
--- NOTE | 2024-05-14 16:28 | XR ---
EXAMINATION TYPE: XR chest 1V portable DATE OF EXAM: 05/14/2024 4:20 PM CLINICAL INDICATION: Male, 78 years old with history of SOB, wheezing, COVID; [facility] COMPARISON: Chest radiographs from 05/13/2024 TECHNIQUE: XR chest 1V portable Frontal view of the chest. FINDINGS: Lungs/Pleura: Scattered subtle reticular and hazy opacities. No evidence of pneumothorax, focal conso lidation or pleural effusion. Pulmonary vascularity: Unremarkable. Heart/mediastinum: Cardiomediastinal silhouette is unremarkable. Musculoskeletal: No acute osseous pathology. IMPRESSION: Subtle scattered opacities which may represent an atypical pneumonia.
[2024-05-14] MEDS: ACETAMINOPHEN TAB 325 MG TAB PO PRN (23:21)
[2024-05-15 07:20] VITALS: BP 163/67; PULSE 61; TEMP 97.9
[2024-05-15 08:54] LABS: HCT 41.6 % (39.6-50.0); HGB 12.9 g/dL (13.0-17.0); MCH 21.3 pg (27.0-32.0); MCV 68.5 FL (80.0-97.0); NRBC Per 100 WBC 0 X 10*3/uL (0.00-0.01); Platelet Count 131 X 10*3/uL (140-440); RBC 6.07 X 10*6/uL (4.40-5.60); RDW 18.1 % (11.5-14.5); WBC 5.05 X 10*3/uL (4.50-10.00)
[2024-05-15 09:31] LABS: Blood Urea Nitrogen 14.4 mg/dL (9.0-27.0); Calcium 8.3 mg/dL (8.7-10.3); Carbon Dioxide 23.9 mmol/L (21.6-31.8); Chloride 106 mmol/L (96-109); Glucose 83 mg/dL (70-110); Potassium 3.8 mmol/L (3.5-5.5); Sodium 140 mmol/L (135-145)
--- NOTE | 2024-05-15 09:47 | CA ---
Transthoracic Echo Report Name: Mookie He Age: 78 Gender: M : 1945 Exam Date: 05/14/2024 15:26 Exam Location: [facility] Ht (in): 68 Wt (lb): 200 Ordering Physician: Adina Cabrera Attending/Referring Phys: [id number], Deborah Field Naturalist Fabiola Chery RDCS Procedure CPT: Indications: LVF Cardiac Hx: Covid Technical Quality: Fair Contrast 1: Total Dose (mL): Contrast 2: Total Dose (mL): MEASUREMENTS (Male / Female) Normal Values 2D ECHO LV Diastolic Diameter PLAX 5.5 cm 4.2 - 5.9 / 3.9 - 5.3 cm LV Systolic Diameter PLAX 4.1 cm IVS Diastolic Thickness 1.4 cm 0.6 - 1.0 / 0.6 - 0.9 cm LVPW Diastolic Thickness 1.3 cm 0.6 - 1.0 / 0.6 - 0.9 cm LV Relative Wall Thickness 0.5 RV Internal Dim ED PLAX 2.2 cm LA Systolic Diameter LX 4.8 cm 3.0 - 4.0 / 2.7 - 3.8 cm LV Diastolic Volume MOD BP 87.9 cm??? 67 - 155 / 56 - 104 cm??? LV Systolic Volume MOD BP 52.2 cm??? 22 - 58 / 19 - 49 cm??? LV Ejection Fraction MOD BP 40.6 % >= 55 % LV Cardiac Index MOD BP 1214.9 cm???/min???m??? LV Diastolic Volume MOD 4C 86.6 cm??? LV Systolic Volume MOD 4C 50.1 cm??? LV Ejection Fraction MOD 4C 42.1 % LV Cardiac Index MOD 4C 1242.8 cm???/min???m??? LV Diastolic Length 4C 7.5 cm LV Systolic Length 4C 6.4 cm LV Diastolic Volume MOD 2C 88.0 cm??? LV Systolic Volume MOD 2C 52.8 cm??? LV Ejection Fraction MOD 2C 40.0 % LV Cardiac Index MOD 2C 1201.1 cm???/min???m??? LV Diastolic Length 2C 7.7 cm LV Systolic Length 2C 6.6 cm M-MODE Aortic Root Diameter MM 3.4 cm LA Systolic Diameter MM 5.1 cm LA Ao Ratio MM 1.5 AV Cusp Separation MM 1.7 cm DOPPLER TR Peak Velocity 328.4 cm/s TR Peak Gradient 43.1 mmHg Right Ventricular Systolic Press 53.1 mmHg FINDINGS Left Ventricle Left ventricular ejection fraction is estimated at 55 %. Moderately increased septal wall thickness. Left ventricular cavity size normal. Normal LV systolic function Right Ventricle Normal right ventricular size and function. Moderate pulmonary hypertension. Right Atrium Mild right atrial dilatation. Left Atrium Moderately increased left atrial diameter. Mitral Valve Mitral valve not well visualized. Aortic Valve Trileaflet aortic valve. Diffuse thickening (sclerosis) of the aortic valve cusps without reduced excursion. Tricuspid Valve Structurally normal tricuspid valve. Pulmonic Valve Structurally normal pulmonic valve. Pericardium No pericardial or pleural effusion. Aorta Normal size aortic root and proximal ascending aorta. CONCLUSIONS Normal LV size and systolic function. Moderate pulmonary hypertension. No pericardial effusion. This was a limited study Previewed by: Dr. Aleyda Gonzalez MD (Electronically Signed) Final Date: 15 May 2024 09:46
[2024-05-15 11:10] VITALS: RESP 18
--- NOTE | 2024-05-15 11:31 | P.DS ---
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 He presented to the emergency department with a chief complaint of chest pain. Patient reports generalized fatigue over the past couple of days but states he awoken this morning with a headache, chest pain, shortness of breath, productive cough, body aches, and overall feeling unwell. He reports that he took a home COVID test which resulte d positive so he assumed his symptoms were simply from this infection. However patient reports he continued to have persistent worsening pain to midsternal chest and increasing dyspnea with any exertion so he came to the emergency department for evaluation. Patient denies having any fevers, chills, diaphoresis, dizziness, lightheadedness, palpitations, abdominal pain, nausea, vomiting, diarrhea, or experiencing any numbness/tingling/weakness/swelling in his extremities. Upon arrival to our facility patient underwent evaluation in the emergency department. Vital signs upon arrival show blood pressure 189/80, heart rate 75, respiratory rate 18, temp 98.4 F, and SpO2 of 95% on room air. EKG was completed showing normal sinus rhythm at 73 bpm with right bundle branch block and no significant T wave or ST abnormalities showing no signs of acute ischemia upon personal review and interpretation. Chest x-ray was negative for acute cardiopulmonary process. Labs were completed and reviewed. CBC showing thrombocytopenia with platelet count of 135. Coagulation profile normal findings. BMP unremarkable. Magnesium 1.8. Liver profile showing elevated total bili of 1.4 otherwise normal findings. Troponin was less than 0.012 and proBNP was 757. Influenza A, influenza B, and RSV were negative. COVID PCR was positive. Patient admitted under our services with consultation to cardiology. Heart Score 5. Trended overnight resulting at less than 0.012, 0.017 and 0.061. Echocardiogram completed showing a preserved EF of 55% with moderate pulmonary hypertension negative for pericardial effusion or significant valvular or structural abnormalities. Patient underwent a 2 night hospitalization and reported full resolution of chest pain and improvement of COVID symptoms including cough, shortness of breath, and bodyaches. An ambulatory pulse ox was completed patient maintained SpO2 of 97% at rest and with ambulation on room air. Patient medically stable for discharge at this time. Physical exam: Vital signs reviewed and stable. General: Nontoxic, no distress and appears stated age. Derm: Skin warm and dry, normal coloration for ethnicity. Head: Atraumatic, normocephalic and symmetric. Eyes: EOM's intact, no lid lag, and anicteric sclera Mouth: no lip lesions, mucus membranes moist Cardiovascular: regular rate and rhythm with normal S1S2, no murmur, positive posterior tibial pulses bilaterally, and cap refill < 2 seconds. Lungs: Respirations even, regular, and unlabored on room air. Lungs diminished with expiratory wheezing noted this morning. No crackles, rales, or rhonchi noted. Abdominal: soft, nontender to palpation, no guarding, no appreciable organomegaly Ext: ROM intact. No gross muscle atrophy, no edema, no contractures Neuro: Speech clear, face symmetrical and CN II-XII grossly intact with no noted focal neuro deficits Psych: Alert and oriented to person, place, time, and situation. Appropriate and pleasant affect. A total of 35 minutes of time were spent preparing this complex discharge summary. Pt was discharged on 05/15/2024 at 11:18 AM Patient was seen independently by Nurse Practitioner. This document was prepared using [employer] dictation software. Please allow for errors in design eng while rare they do occur. I reviewed the documentation as provided by the ELA above, who is the original author of this note. I agree with the documented assessment and plan, with the following changes: none Patient Condition at Discharge: Stable Plan - Discharge Summary Discharge Rx Participant: No New Discharge Prescriptions: Continue Tamsulosin HCl [Flomax] 0.4 mg PO HS Sennosides [Senokot] 8.6 mg PO DAILY PRN PRN Reason: Constipation hydrOXYzine HCL [Atarax] 25 mg PO HS PRN PRN Reason: Insomnia Etanercept [Enbrel] 50 mg SQ MO #0 NIFEdipine [Adalat CC] 30 mg PO DAILY PRN PRN Reason: Blood Pressure - High Multivitamins, Thera [Multivitamin (formulary)] 1 tab PO DAILY [place]-3/Dha/Epa/Fish Oil [Fish Oil 1,000 mg Softgel] 2 cap PO DAILY Discharge Medication List Multivitamins, Thera [Multivitamin (formulary)] 1 tab PO DAILY 05/13/24 [History] NIFEdipine [Adalat CC] 30 mg PO DAILY PRN 05/13/24 [History] [place]-3/Dha/Epa/Fish Oil [Fish Oil 1,000 mg Softgel] 2 cap PO DAILY 05/13/24 [History] Sennosides [Senokot] 8.6 mg PO DAILY PRN 05/13/24 [History] Tamsulosin HCl [Flomax] 0.4 mg PO HS 05/13/24 [History] hydrOXYzine HCL [Atarax] 25 mg PO HS PRN 05/13/24 [History] Etanercept [Enbrel] 50 mg SQ MO #0 05/15/24 [Rx] Follow up Appointment(s)/Referral(s): Brandon Sandoval MD [REFERRING] - 1 Week (Please call and schedule appointment at residency clinic next week before going back to [place] to ensure you are safe to resume your Enbrel, until cleared to resume you will need to hold this med ication. ) Patient Instructions/Handouts: Droplet Precautions (GEN), COVID-19 (Coronavirus Disease 2019) (DC) Activity/Diet/Wound Care/Special Instructions: Activity: As tolerated. Take breaks as needed. Diet: Heart healthy and carb consistent diet. Avoid salts, or foods with hidden salts such as canned or boxed foods and frozen dinners. Extra salt makes your heart work harder and traps the fluid in your body for longer. Special Instructions: Please continue droplet precautions, wear a mask whenever you are out in public to prevent the spread of COVID-19 infection. It is of utmost importance to continue to hold your Enbrel until follow up with residency clinic and you are cleared to resume. Taking this medication during an acute infection places you at an increased risk of developing a worsening/severe infection. Thank you for allowing us to participate in your care, it was truly a pleasure having you for our patient!!! Discharge Disposition: HOME SELF-CARE
--- NOTE | 2024-05-15 12:20 | P.PN ---
Subjective Progress Note Date: 05/15/24 Reason for Consult (text): Chest pain History of present illness: This is a 78-year-old male with past medical history of rheumatoid arthritis, hypertension, benign prostatic hypertrophy. We have been asked to evaluate the patient for chest pain. Patient presented with complaints of headache chest discomfort, shortness of breath cough with bodyaches generalized fatigue. He did test positive for COVID and is in COVID isolation. No chest pain at this time. Blood pressure 155/72, heart rate 65, pulse ox 94% on room air. Patient resides in [place]. EKG: Sinus rhythm with right bundle branch block Chest x-ray: No acute process. Laboratory studies: WBC 6, hemoglobin 12.3, platelet count 129. Electrolytes and renal function are normal. Troponins 0.012, 0.017, 0.061. Triglycerides 67, cholesterol 135, LDL 82, HDL 38. Influenza A, influenza B, RSV not detected, positive COVID-19. Home cardiac medications: Nifedipine 30 mg daily as needed 05/15 Echocardiogram Limited study reveals EF of 55%. Moderate pulmonary hypertension. No pericardial effusion. Patient denies chest pain no shortness of breath. Blood pressure 163/67, heart rate 61, pulse ox 97% on room air, afebrile. Repeat blood work reveals hemoglobin 12.9, platelet count 131, creatinine 0.9. Physical examination: Gen: This is a 78-year-old male in no acute distress VS: reviewed Physical examination deferred due to COVID-19 isolation Assessment: COVID-19 Atypical chest pain Mild elevation in third troponin most likely secondary to COVID-19 Hypertension Benign prostatic hypertrophy Rheumatoid arthritis Plan: Continue patient's home cardiac medications No plan for any further cardiac intervention and patient is cleared for discharge. Nurse practitioner note has been reviewed, I agree with documented findings and plan of care. Patient was seen and examined. Objective - Vital Signs Vital signs: Vital Signs Temp 97.9 F 05/15/24 07:00 Pulse 61 05/15/24 07:00 Resp 21 05/15/24 07:00 BP 163/67 05/15/24 07:00 Pulse Ox 92 L 05/15/24 07:00 FiO2 Intake & Output 05/14/24 05/15/24 05/15/24 18:59 06:59 18:59 Intake Total 0 Output Total 300 Balance 0 -300 Intake: Oral 0 Output: Urine 300 Other: Voiding Method Toilet # Voids 2 4 - Labs CBC & Chem 7: 05/15/24 04:28 05/15/24 04:28 Labs: Abnormal Lab Results - Last 24 Hours (Table) 05/14/24 05/14/24 Range/Units 03:02 03:02 RBC 5.78 H (4.40-5.60) X 10*6/uL Hgb 12.3 L (13.0-17.0) g/dL Hct 38.7 L (39.6-50.0) % MCV 67.0 L (80.0-97.0) FL MCH 21.3 L (27.0-32.0) pg MCHC 31.8 L (32.0-37.0) g/dL RDW 17.8 H (11.5-14.5) % Plt Count 129 L (140-440) X 10*3/uL Calcium 8.3 L (8.7-10.3) mg/dL Albumin/Globulin Ratio 1.50 L (1.60-3.17) Ratio HDL Cholesterol 38.70 L (40.00-60.00) mg/dL
== END 2024-05-15 11:44 | disposition home or self-care (01) ==
LOC: EC 13:55 → 6NMEDSUR 17:19
PROVIDERS: ADMIT Student in an Organized Health Care Education/Training Program; ATTEND Student in an Organized Health Care Education/Training Program
DX: R07.89 Other chest pain (principal); U07.1 COVID-19; J12.82 Pneumonia due to coronavirus disease 2019; R79.89 Other specified abnormal findings of blood chemistry; I10 Essential (primary) hypertension; D69.6 Thrombocytopenia, unspecified; I45.10 Unspecified right bundle-branch block; N40.0 Benign prostatic hyperplasia without lower urinary tract symptoms; M06.9 Rheumatoid arthritis, unspecified; Z79.620 Long term (current) use of immunosuppressive biologic; Z79.899 Other long term (current) drug therapy; Z11.59 Encounter for screening for other viral diseases; I27.20 Pulmonary hypertension, unspecified
CPT/HCPCS: 36415; 71045; 71046; 80048; 80053; 80061; 83735; 83880; 84484; 85025; 85027; 85379; 85610; 85730; 87636; 93005; 93308; 94760; 96372; 99285

== ENCOUNTER 2024-07-11 02:18 | Inpatient (IN) | payer OTHER, MEDICARE ==
[2024-07-11] MEDS: ETOMIDATE 2 MG/ML 10 ML VIAL IVP STA (02:26)
[2024-07-11] MEDS: ROCURONIUM 10 MG/ML (5 ML VIAL) IV STA (02:27)
[2024-07-11] MEDS: SODIUM CHLORIDE 0.9% 1,000 ML IV ONE (02:39)
[2024-07-11] MEDS: SODIUM CHLORIDE 0.9% 1,000 ML IV STA ×2 (02:41→02:42)
--- NOTE | 2024-07-11 02:41 | ED ---
General Adult HPI - General Chief complaint: Cardiac Arrest/CPR Stated complaint: Cardiac arrest Source: EMS Mode of arrival: EMS Limitations: no limitations - History of Present Illness Initial comments: History is limited by acuity of condition. Patient is a 78-year-old gentleman with unknown past medical history presenting today for cardiac arrest. Per EMS report patient called for shortness of breath and upon their arrival patient was unresponsive and pulseless. CPR was performed for 5 minutes and ROSC was achieved. Patient hypertensive and hypoxic and route. Patient required assisted respirations via BVM with max pulse ox 74%. I later did receive further history from patient's friend/caregiver/ Jessica LE. States patient has had worsening shortness of breath over the last 2 to 3 days. States that he was very active today cleaning up the garage and throughout the day complained of worsening shortness of breath and chest discomfort. He was at home this evening when he looked pale shortness of breath worsened and EMS was called. Pt collapsed immediately upon EMS arrival. She states patient has no hx CAD/heart disease, is a nonsmoker. - Related Data Home Medications Medication Instructions Recorded Confirmed Multivitamins, Thera [Multivitamin 1 tab PO DAILY 05/13/24 05/13/24 (formulary)] NIFEdipine [Adalat CC] 30 mg PO DAILY PRN 05/13/24 05/13/24 Seth-3/Dha/Epa/Fish Oil [Fish Oil 2 cap PO DAILY 05/13/24 05/13/24 1,000 mg Softgel] Sennosides [Senokot] 8.6 mg PO DAILY PRN 05/13/24 05/13/24 Tamsulosin HCl [Flomax] 0.4 mg PO HS 05/13/24 05/13/24 hydrOXYzine HCL [Atarax] 25 mg PO HS PRN 05/13/24 05/13/24 Previous Rx's Medication Instructions Recorded Etanercept [Enbrel] 50 mg SQ MO #0 05/15/24 Allergies Allergy/AdvReac Type Severity Reaction Status Date / Time No Known Allergies Allergy Verified 05/13/24 17:30 Review of Systems ROS Statement: Those systems with pertinent positive or pertinent negative responses have been documented in the HPI. Limitations: ROS unobtainable due to patients medical condition Past Medical History Past Medical History: No Reported History History of Any Multi-Drug Resistant Organisms: None Reported Past Surgical History: Orthopedic Surgery Additional Past Surgical History / Comment(s): neck surgery; right knee surgery; right shoulder surgery; lower back Past Anesthesia/Blood Transfusion Reactions: No Reported Reaction Past Psychological History: No Psychological Hx Reported Smoking Status: Never smoker Past Alcohol Use History: Occasional Past Drug Use History: None Reported General Exam - General Exam Comments Initial Comments: PE: CONSTITUTIONAL: Ill-appearing, in acute distress, actively receiving assisted ventilations via bVM, unresponsive SKIN: Warm, dry, no jaundice, hives or petechiae, dependant lividity EYES: Pupils are equally round, pupils fixed and dilated HENT: Normocephalic, atraumatic, moist mucus membranes, oropharynx with scant blood and emesis NECK: , Full range of motion, normal appearance PULMONARY: Rhonchi in bilateral lung pineda throughout with assisted ventilati ons CARDIOVASCULAR: Regular rate, rhythm, normal S1 and S2. No appreciated murmurs, rubs or gallops. Strong radial pulses with intact distal perfusion. No lower extremity edema GASTROINTESTINAL: Soft, active bowel sounds throughout, minimally distended no palpable masses, no rebound or guarding. No hepatosplenomegaly MUSCULOSKELETAL: Extremities have no gross deformity, no edema, redness, or swelling. No calf swelling NEUROLOGIC:_Unresponsive, patient gagging against OPA, does not move extremities spontaneously, does not localize to pain no posturing PSYCHIATRIC:_unable to assess Limitations: no limitations Course Vital Signs 07/11/24 07/11/24 07/11/24 02:20 02:25 02:30 Temperature 96.8 F L Pulse Rate 107 H 106 H 108 H Respiratory 16 20 20 Rate Blood Pressure 181/99 201/101 171/100 O2 Sat by Pulse 85 L 91 L 93 L Oximetry Fraction of Inspired Oxygen (FIO2) 07/11/24 07/11/24 07/11/24 02:35 02:40 02:45 Temperature Pulse Rate 110 H 112 H 114 H Respiratory 16 18 18 Rate Blood Pressure 184/88 202/100 199/100 O2 Sat by Pulse 95 94 L 94 L Oximetry Fraction of 100 Inspired Oxygen (FIO2) 07/11/24 07/11/24 07/11/24 02:55 03:27 03:45 Temperature 96.4 F L Pulse Rate 112 H 112 H 80 Respiratory 16 13 Rate Blood Pressure 183/99 207/112 147/81 O2 Sat by Pulse 93 L 88 L 92 L Oximetry Fraction of Inspired Oxygen (FIO2) 07/11/24 07/11/24 07/11/24 04:00 04:05 04:12 Temperature 95.1 F L Pulse Rate 84 Respiratory 20 Rate Blood Pressure 170/80 O2 Sat by Pulse 91 L Oximetry Fraction of 100 100 Inspired Oxygen (FIO2) 07/11/24 07/11/24 07/11/24 04:15 04:35 04:47 Temperature 95.1 F L 95.3 F L Pulse Rate 86 77 Respiratory 20 22 Rate Blood Pressure 167/78 122/79 O2 Sat by Pulse 89 L 88 L Oximetry Fraction of 100 Inspired Oxygen (FIO2) 07/11/24 07/11/24 07/11/24 04:55 05:00 05:05 Temperature 95.7 F L Pulse Rate 96 86 79 Respiratory 23 24 14 Rate Blood Pressure 198/101 199/115 85/56 O2 Sat by Pulse 89 L 88 L 87 L Oximetry Fraction of Inspired Oxygen (FIO2) 07/11/24 07/11/24 07/11/24 05:10 05:15 05:20 Temperature Pulse Rate 75 73 93 Respiratory 24 23 15 Rate Blood Pressure 83/53 84/55 138/77 O2 Sat by Pulse 85 L 85 L 88 L Oximetry Fraction of Inspired Oxygen (FIO2) 07/11/24 07/11/24 07/11/24 05:25 05:30 05:35 Temperature Pulse Rate 92 86 98 Respiratory 24 22 22 Rate Blood Pressure 178/96 185/90 165/94 O2 Sat by Pulse 89 L 89 L 76 L Oximetry Fraction of Inspired Oxygen (FIO2) 07/11/24 07/11/24 07/11/24 05:40 05:45 05:50 Temperature Pulse Rate 69 69 66 Respiratory 23 24 24 Rate Blood Pressure 157/71 64/43 61/41 O2 Sat by Pulse 90 L 86 L 85 L Oximetry Fraction of Inspired Oxygen (FIO2) 07/11/24 07/11/24 07/11/24 05:55 06:00 06:05 Temperature Pulse Rate 64 64 63 Respiratory 24 24 24 Rate Blood Pressure 61/39 64/43 61/44 O2 Sat by Pulse 84 L 82 L 85 L Oximetry Fraction of Inspired Oxygen (FIO2) 07/11/24 07/11/24 07/11/24 06:10 06:15 06:20 Temperature Pulse Rate 62 62 60 Respiratory 24 12 20 Rate Blood Pressure 62/44 65/42 66/41 O2 Sat by Pulse 87 L 89 L 91 L Oximetry Fraction of Inspired Oxygen (FIO2) 07/11/24 07/11/24 07/11/24 06:25 06:30 06:35 Temperature Pulse Rate 61 61 61 Respiratory 24 24 24 Rate Blood Pressure 77/53 84/52 81/54 O2 Sat by Pulse 92 L 91 L 93 L Oximetry Fraction of Inspired Oxygen (FIO2) 07/11/24 07/11/24 07/11/24 06:40 06:45 06:50 Temperature Pulse Rate 79 60 60 Respiratory 17 12 11 L Rate Blood Pressure 88/65 102/62 70/58 O2 Sat by Pulse 93 L 96 96 Oximetry Fraction of Inspired Oxygen (FIO2) 07/11/24 07/11/24 07/11/24 06:53 06:54 06:56 Temperature Pulse Rate 60 61 60 Respiratory 12 14 9 L Rate Blood Pressure 74/47 74/47 73/48 O2 Sat by Pulse 96 96 95 Oximetry Fraction of Inspired Oxygen (FIO2) 07/11/24 07/11/24 07/11/24 06:58 07:00 07:02 Temperature Pulse Rate 60 60 60 Respiratory 10 L 24 24 Rate Blood Pressure 78/48 79/49 78/48 O2 Sat by Pulse 96 94 L 96 Oximetry Fraction of Inspired Oxygen (FIO2) 07/11/24 07/11/24 07/11/24 07:04 07:06 07:08 Temperature Pulse Rate 59 L 60 60 Respiratory 24 24 24 Rate Blood Pressure 76/49 76/51 81/50 O2 Sat by Pulse 95 96 95 Oximetry Fraction of Inspired Oxygen (FIO2) 07/11/24 07/11/24 07/11/24 07:10 07:12 07:14 Temperature Pulse Rate 59 L 58 L 58 L Respiratory 24 24 16 Rate Blood Pressure 81/50 77/49 77/53 O2 Sat by Pulse 96 96 96 Oximetry Fraction of Inspired Oxygen (FIO2) 07/11/24 07/11/24 07:16 07:18 Temperature Pulse Rate 58 L 58 L Respiratory 16 16 Rate Blood Pressure 79/50 77/49 O2 Sat by Pulse 96 96 Oximetry Fraction of Inspired Oxygen (FIO2) EKG Findings - EKG Comments: EKG Findings:: Sinus tachycardia, rate 101 bpm, SC interval 207 ms, QRS duration 131 ms, QT/QTc 297/361 ms, normal axis, artifact present throughout limiting assessment, or ST elevations or depressions. Repeat EKG performed at 443, sinus rhythm, rate 90 bpm, SC interval 203 ms, QRS duration 126 ms, QT/QTc 416/464 ms, right axis deviation, ST depression V3, V4, V5, no reciprocal elevations, compared to original EKG, ST depressions appear somewhat increased from prior however no new ST elevations or other changes noted. Repeat EKG performed at 7:22 AM to assess for evolving changes-sinus bradycardia, rate 50 bpm, SC interval 209 ms, QRS duration 120 ms, QT/QTc 562/559 ms, normal axis, T wave inversions V3, V4, V5 V6, no new ST elevations Procedures - Central Line Placement Right Femoral Consent Obtained: verbal consent (Patient's DPOA, Jessica) Patient Placed on Monitor/Pulse Ox: Yes MD Prep: mask, gown, gloves Central Line Prep: Chlorhexidine scrub Local Anesthesia Used: Lidocaine 1% Amount of Anesthesia Used (mls): 3 Ultrasound Used for Placement: Yes Central Line Lumen Inserted: triple Bloods Obtained for Lab: No Central Line Position: good blood return, all ports aspirated, flushed, capped, sutured in place with 2-0 silk Dressing Applied: Tegaderm Patient Tolerated Procedure: well - Intubation Sedative: Etomidate Paralytic: Rocuronium Laryngoscope: Luis Size: 4 ET Tube Size: 7.5 ET Tube Uncuffed: Yes Tube Secured Depth (cm): 23 Tube Secured Location: teeth (23) Tube Placement Confirmation: visualized tube passing through cords, equal breath sounds bilaterally, no breath sounds over epigastrium, confirmation by capnometry Patient Tolerated Procedure: well Medical Decision Making - Medical Decision Making Was pt. sent in by a medical professional or institution (, PA, MIXER OPERATOR [employer], urgent care, hospital, or group home...) When possible be specific @ -No Did you speak to anyone other than the patient for history (EMS, parent, family, police, friend...)? What history was obtained from this source @ Spoke with EMS personnel, later spoke with patient's DPOA/ friend/ caregiver, Jessica Did you review nursing and triage notes (agree or disagree)? Why? @ -I reviewed nursing and triage notes Were old charts reviewed (outside hosp., previous admission, EMS record, old EKG, old radiological studies, urgent care reports/EKG's, group home records)? Report findings @ -Medical records reviewed, pt was admitted in May of this year for COVID 19 complications Differential Diagnosis (chest pain, altered mental status, abdominal pain women, abdominal pain men, vaginal bleeding, weakness, fever, dyspnea, syncope, headache, dizziness, GI bleed, back pain, seizure, CVA, palpatations, mental health, musculoskeletal)? @ Differential diagnosis remains broad however top considerations include cardiac arrest 2/2 respiratory arrest, COPD exacerbation, acute congestive heart failure, STEMI/NSTEMI, massive PE, this is not meant to be an all inclusive list EKG interpreted by me (3pts min.). @ -As above X-rays interpreted by me (1pt min.). @ ETT in appropriate position, diffuse bilateral infiltrates, cardiomegaly CT interpreted by me (1pt min.). @No massive/submassive PE, bilateral pulmonary infiltrates, CT brain without evidence of hemorrhage U/S interpreted by me (1pt. min.). @ -None done What testing was considered but not performed or refused? (CT, X-rays, U/S, labs)? Why? @ -None What meds were considered but not given or refused? Why? @ -None Did you discuss the management of the patient with other professionals (professionals i.e. , PA, MIXER OPERATOR [employer], lab, RT, psych nurse, social sciences lecturer, paper pattern folder, teacher, chief nursing officer, case packer)? Give summary Case discussed with Dr. Arteaga, critical care Was smoking cessation discussed for >3mins.? @ -No Was critical care preformed (if so, how long)? @ Yes 80 minutes Were there social determinants of health that impacted care today? How? (Homelessness, low income, unemployed, alcoholism, drug addiction, transportation, low edu. Level, literacy, decrease access to med. care, retirement, rehab)? @ -No Was there de-escalation of care discussed even if they declined (Discuss DNR or withdrawal of care, Hospice)? @ -No What co-morbidities impacted this encounter? (DM, HTN, Smoking, COPD, CAD, Cancer, CVA, ARF, Chemo, Hep., AIDS, mental health diagnosis, sleep apnea, morbid obesity)? @ -None Was patient admitted / discharged? Hospital course, mention meds given and route, prescriptions, significant lab abnormalities, going to OR and other pertinent info. @Admission to ICU Patient is a 78-year-old gentleman unknown past medical history presenting today for cardiac arrest secondary to respiratory distress. On assessment patient is actively receiving assisted respirations via BVM. Is ill-appearing, unresponsive. Pupils are fixed and dilated. He is gagging with OPA in his mouth. Scant amount of blood in the airway. Patient does not respond to painful stimuli, no posturing. Rhonchi in the bilateral lower bilateral lung pineda. Patient connected to monitor, BVM was used during patient's pulse ox as high as possible and 90%. Patient was intubated due to unresponsiveness. IV fluids, propofol hung. Patient hypertensive and mildly tachycardic on arrival. 2+ radial pulses in upper extremities bilaterally and 2+ DP pulses in bilateral LE , no lower extremity edema. Abdomen is soft. Active bowel sounds. CT PE study, CT brain, comprehensive labs, EKG. While pending return of blood work, patient desatted to 89%, we disconnected him from ventilator, provided assisted respirations, continued to have bilateral breath sounds, CXR confirmed continued ETT placement 5.6 cm above santino, was moved down 2 cm. Patient has pulmonary edema/bilateral infiltrates on CXR. suctioning used to suction out a large amount of frothy secretions from ET tube. Patient pulse ox came up to 92%. IV fluids was stopped out of concern for fluid overload. PEEP increased from 5 to 8. Zosyn ordered. Lasix ordered. Labs otherwise significant for 19.7, TSH 7.630, initial ABG pH 7.01, pCO2 91, O2 saturation 88.5 though pO2 83. Patient's ventilator settings were adjusted accordingly, respiratory rate was increased to 24. CT brain negative for acute process, CTA chest showed small bilateral pleural effusions moderate cardiomegaly, no significant pericardial effusion, no evidence of right ventricular dysfunction, diffuse septal thickening throughout the lungs with a large amount of patchy airspace opacities consolidations throughout both lungs, predominantly lower lobes with mixed groundglass opacities, no sick aortic aneurysm or dissection. Initial chest x-ray showed massive alveolar consolidation R>L cocnerning for pneumonia or pulmonary edema/ARDS. Repeat chest x-ray showed a wedge-shaped consolidation in the right paratracheal region new or increased may suggest loculated pleural effusion, pericardial effusion versus worsening airspace disease. Bedside ultrasound on my assessment showed no pericardial effusion or tamponade. BNP 2770. Troponin 0.558. No ST elevations on EKG however ST depressions leads V3-V6. Heparin ordered for concern for NSTEMI. Pt did become hypotensive in the ED after sedation was increased, started on levophed. Patient discussed with Dr. Arteaga, critical care, and Dr. Beck, [facility], patient accepted for admission. Of note, repeat EKG was performed for patient due to elevated troponin and to ensure no worsening ST elevations. No new ST elevations though did show prolonged QT int. Mag level 2.6 Discussed with pharmacy, considered administering additional IV magnesium for prolonged QT however discussed with Sebastian, Pharmacist, additional mag unlikely to be of benefit. Undiagnosed new problem with uncertain prognosis? @ Yes Drug Therapy requiring intensive monitoring for toxicity (Heparin, Nitro, Insulin, Cardizem)? @Heparin, propofol, fentanyl, norepinephrine Were any procedures done? @Intubation, central line placement Diagnosis/symptom? @ -Cardiac arrest, NSTEMI, ARDS Acute, or Chronic, or Acute on Chronic? @Acute Uncomplicated (without systemic symptoms) or Complicated (systemic symptoms)? Complicated Side effects of treatment? @ -No Exacerbation, Progression, or Severe Exacerbation? @ -No Poses a threat to life or bodily function? How? (Chest pain, [place], [place], pneumonia, PE, COPD, DKA, ARF, appy, cholecystitis, CVA, Diverticulitis, Homicidal, Suicidal, threat to staff... and all critical care pts) @Yes - Lab Data Result diagrams: 07/11/24 02:25 07/11/24 02:25 Lab Results 07/11/24 07/11/24 07/11/24 Range/Units 02:25 02:25 02:25 WBC 19.7 H (3.8-10.6) k/uL RBC 6.95 H (4.30-5.90) m/uL Hgb 14.6 (13.0-17.5) gm/dL Hct 52.0 (39.0-53.0) % MCV 74.8 L D (80.0-100.0) fL MCH 21.1 L (25.0-35.0) pg MCHC 28.2 L (31.0-37.0) g/dL RDW 16.3 H (11.5-15.5) % Plt Count 208 (150-450) k/uL MPV 7.9 Neutrophils % 27 % Lymphocytes % 60 % Monocytes % 6 % Eosinophils % 2 % Basophils % 1 % Neutrophils # 5.4 (1.3-7.7) k/uL Lymphocytes # 11.7 H (1.0-4.8) k/uL Monocytes # 1.2 H (0-1.0) k/uL Eosinophils # 0.3 (0-0.7) k/uL Basophils # 0.3 H (0-0.2) k/uL Manual Slide Review Performed Hypochromasia Marked Anisocytosis Slight Microcytosis Slight Tear Drop Cells Present PT 11.3 (10.0-12.5) sec INR 1.0 (<1.2) APTT 34.2 H (22.0-30.0) sec Sample Site ABG pH (7.35-7.45) ABG pCO2 (35-45) mmHg ABG pO2 (83-108) mmHg ABG HCO3 (21-25) mmol/L ABG Total CO2 (19-24) mmol/L ABG O2 Saturation (94-97) % ABG Base Excess mmol/L [place] Test Hemoglobin (13.0-17.5) gm/dL FiO2 % Sodium 138 (137-145) mmol/L Potassium 4.3 (3.5-5.1) mmol/L Chloride 107 (98-107) mmol/L Carbon Dioxide 13 L (22-30) mmol/L Anion Gap 18 mmol/L BUN 18 (9-20) mg/dL Creatinine 1.12 (0.66-1.25) mg/dL Est GFR (CKD-EPI)AfAm 73 (>60 ml/min/1.73 sqM) Est GFR (CKD-EPI)NonAf 63 (>60 ml/min/1.73 sqM) Glucose 313 H (74-99) mg/dL Calcium 8.6 (8.4-10.2) mg/dL Magnesium 2.6 H (1.6-2.3) mg/dL Total Bilirubin 0.9 (0.2-1.3) mg/dL AST 57 (17-59) U/L ALT 31 (4-49) U/L Alkaline Phosphatase 94 (38-126) U/L Troponin I (0.000-0.034) ng/mL NT-Pro-B Natriuret Pep 2770 pg/mL Total Protein 7.7 (6.3-8.2) g/dL Albumin 4.1 (3.5-5.0) g/dL TSH 7.630 H (0.465-4.680) mIU/L Influenza Type A (PCR) (Not Detectd) Influenza Type B (PCR) (Not Detectd) RSV (PCR) (Not Detectd) SARS-CoV-2 (PCR) (Not Detectd) 07/11/24 07/11/24 07/11/24 Range/Units 02:25 04:24 05:08 WBC (3.8-10.6) k/uL RBC (4.30-5.90) m/uL Hgb (13.0-17.5) gm/dL Hct (39.0-53.0) % MCV (80.0-100.0) fL MCH (25.0-35.0) pg MCHC (31.0-37.0) g/dL RDW (11.5-15.5) % Plt Count (150-450) k/uL MPV Neutrophils % % Lymphocytes % % Monocytes % % Eosinophils % % Basophils % % Neutrophils # (1.3-7.7) k/uL Lymphocytes # (1.0-4.8) k/uL Monocytes # (0-1.0) k/uL Eosinophils # (0-0.7) k/uL Basophils # (0-0.2) k/uL Manual Slide Review Hypochromasia Anisocytosis Microcytosis Tear Drop Cells PT (10.0-12.5) sec INR (<1.2) APTT (22.0-30.0) sec Sample Site Right Radial ABG pH 7.01 L* (7.35-7.45) ABG pCO2 91 H* (35-45) mmHg ABG pO2 83 (83-108) mmHg ABG HCO3 23 (21-25) mmol/L ABG Total CO2 26 H (19-24) mmol/L ABG O2 Saturation 88.5 L (94-97) % ABG Base Excess -10.4 mmol/L [place] Test Yes Hemoglobin 14.9 (13.0-17.5) gm/dL FiO2 100 % Sodium (137-145) mmol/L Potassium (3.5-5.1) mmol/L Chloride (98-107) mmol/L Carbon Dioxide (22-30) mmol/L Anion Gap mmol/L BUN (9-20) mg/dL Creatinine (0.66-1.25) mg/dL Est GFR (CKD-EPI)AfAm (>60 ml/min/1.73 sqM) Est GFR (CKD-EPI)NonAf (>60 ml/min/1.73 sqM) Glucose (74-99) mg/dL Calcium (8.4-10.2) mg/dL Magnesium (1.6-2.3) mg/dL Total Bilirubin (0.2-1.3) mg/dL AST (17-59) U/L ALT (4-49) U/L Alkaline Phosphatase (38-126) U/L Troponin I 0.588 H* (0.000-0.034) ng/mL NT-Pro-B Natriuret Pep pg/mL Total Protein (6.3-8.2) g/dL Albumin (3.5-5.0) g/dL TSH (0.465-4.680) mIU/L Influenza Type A (PCR) Not Detected (Not Detectd) Influenza Type B (PCR) Not Detected (Not Detectd) RSV (PCR) Not Detected (Not Detectd) SARS-CoV-2 (PCR) Not Detected (Not Detectd) 07/11/24 Range/Units 06:21 WBC (3.8-10.6) k/uL RBC (4.30-5.90) m/uL Hgb (13.0-17.5) gm/dL Hct (39.0-53.0) % MCV (80.0-100.0) fL MCH (25.0-35.0) pg MCHC (31.0-37.0) g/dL RDW (11.5-15.5) % Plt Count (150-450) k/uL MPV Neutrophils % % Lymphocytes % % Monocytes % % Eosinophils % % Basophils % % Neutrophils # (1.3-7.7) k/uL Lymphocytes # (1.0-4.8) k/uL Monocytes # (0-1.0) k/uL Eosinophils # (0-0.7) k/uL Basophils # (0-0.2) k/uL Manual Slide Review Hypochromasia Anisocytosis Microcytosis Tear Drop Cells PT (10.0-12.5) sec INR (<1.2) APTT (22.0-30.0) sec Sample Site Right Radial ABG pH 7.14 L* (7.35-7.45) ABG pCO2 62 H (35-45) mmHg ABG pO2 70 L (83-108) mmHg ABG HCO3 21 (21-25) mmol/L ABG Total CO2 23 (19-24) mmol/L ABG O2 Saturation 88.2 L (94-97) % ABG Base Excess -8.8 mmol/L [place] Test Yes Hemoglobin 13.7 (13.0-17.5) gm/dL FiO2 100 % Sodium (137-145) mmol/L Potassium (3.5-5.1) mmol/L Chloride (98-107) mmol/L Carbon Dioxide (22-30) mmol/L Anion Gap mmol/L BUN (9-20) mg/dL Creatinine (0.66-1.25) mg/dL Est GFR (CKD-EPI)AfAm (>60 ml/min/1.73 sqM) Est GFR (CKD-EPI)NonAf (>60 ml/min/1.73 sqM) Glucose (74-99) mg/dL Calcium (8.4-10.2) mg/dL Magnesium (1.6-2.3) mg/dL Total Bilirubin (0.2-1.3) mg/dL AST (17-59) U/L ALT (4-49) U/L Alkaline Phosphatase (38-126) U/L Troponin I (0.000-0.034) ng/mL NT-Pro-B Natriuret Pep pg/mL Total Protein (6.3-8.2) g/dL Albumin (3.5-5.0) g/dL TSH (0.465-4.680) mIU/L Influenza Type A (PCR) (Not Detectd) Influenza Type B (PCR) (Not Detectd) RSV (PCR) (Not Detectd) SARS-CoV-2 (PCR) (Not Detectd) Disposition Clinical Impression: Cardiac arrest, ARDS (adult respiratory distress syndrome) Disposition: ADMITTED IP TO THIS HOSP Condition: Critical
[2024-07-11 03:03] LABS: Anisocytosis Slight; Basophils # (A) 0.3 k/uL (0-0.2); Basophils % (A) 1 %; Eosinophils # (A) 0.3 k/uL (0-0.7); Eosinophils % (A) 2 %; HGB 14.6 gm/dL (13.0-17.5); Hypochromasia Marked; Lymphocytes # (A) 11.7 k/uL (1.0-4.8); Lymphocytes % (A) 60 %; MCH 21.1 pg (25.0-35.0); MCHC 28.2 g/dL (31.0-37.0); Mean Platelet Volume 7.9; Microcytosis Slight; Monocytes # (A) 1.2 k/uL (0-1.0); Monocytes % (A) 6 %; Neutrophils # (A) 5.4 k/uL (1.3-7.7); Neutrophils % (A) 27 %; Platelet Count 208 k/uL (150-450); RBC 6.95 m/uL (4.30-5.90); RDW 16.3 % (11.5-15.5); WBC 19.7 k/uL (3.8-10.6)
[2024-07-11 03:16] LABS: Partial Thromboplastin Time 34.2 sec (22.0-30.0); Prothrombin Time 11.3 sec (10.0-12.5)
[2024-07-11] MEDS: fentaNYL (PF) 50 MCG/ML 2 ML AMP IVP STA (03:38)
[2024-07-11] MEDS: fentaNYL (PF). 1,000 MCG in SODIUM CHLORIDE 0.9% 80 ML IV SCH (03:41)
--- NOTE | 2024-07-11 04:00 | CT ---
EXAM: CT Head Without Intravenous Contrast CLINICAL HISTORY: cardiac arrest TECHNIQUE: Axial computed tomography images of the head/brain without intravenous contrast. CTDI is 49.1 mGy and DLP is 1252 mGy-cm. This CT exam was performed using one or more of the following dose reduction techniques: automated exposure control, adjustment of the mA and/or kV according to patient size, and/or use of iterative reconstruction technique. Coronal and sagittal reformatted images were created and reviewed. 1168 images COMPARISON: No relevant prior studies available. FINDINGS: Brain: Age-related generalized brain volume loss and chronic small vessel ischemic changes. 4 mm coarse calcification in lower pole of the left lobe of the thyroid gland. No hemorrhage. Ventricles: Unremarkable. No ventriculomegaly. Bones/joints: No acute findings. Soft tissues: Unremarkable. Sinuses: Unremarkable as visualized. No acute sinusitis. Mastoid air cells: Unremarkable as visualized. No mastoid effusion. Orbits: Bilateral cataract surgeries. Dental: Scattering artifact near skull base related to dental hardware decrease the sensitivity in associated images. Tubes, lines and devices: Endotracheal and enteric tubes are noted. IMPRESSION: No acute findings in the head/brain.
--- NOTE | 2024-07-11 04:04 | CT ---
EXAM: CT Angiography Chest With Intravenous Contrast CLINICAL HISTORY: cardiac arrest TECHNIQUE: Axial computed tomographic angiography images of the chest with intravenous contrast. This CT exam was performed using one or more of the following dose reduction techniques: automated exposure control, adjustment of the mA and/or kV according to patient size, and/or use of iterative reconstruction technique. MIP reconstructed images were created and reviewed. Coronal and sagittal reformatted images were created and reviewed. 880 images COMPARISON: No relevant prior studies available. FINDINGS: Artifacts: Scatter artifact decreases the sensitivity of this exam. Pulmonary arteries: Unremarkable. No pulmonary embolism. Aorta: Small amount of atherosclerotic artery calcifications. No thoracic aortic aneurysm. Lungs: Diffuse septal thickening. Large amount of patchy airspace opacities/consolidations throughout both lungs, predominantly lower lobes mixed with ground-glass opacities with central distribution throughout both lungs. Pleural space: Small bilateral pleural effusions slightly more on the left. Heart: Moderate cardiomegaly. No significant pericardial effusion. No evidence of RV dysfunction. Bones/joints: Osteopenia. Moderate degenerative changes. DISH. ACDF. Soft tissues: Unremarkable. Lymph nodes: Unremarkable. No enlarged lymph nodes. Tubes, lines and devices: Endotracheal and enteric tubes are in place. IMPRESSION: 1. No Pulmonary embolism. No thoracic aortic aneurysm or dissection. 2. Small bilateral pleural effusions 3. Large amount of patchy airspace opacities/consolidations throughout both lungs, predominantly lower lobes mixed with ground-glass opacities with central distribution throughout both lungs can be due to pulmonary edema, atelectasis and/or pneumonia or aspiration.
--- NOTE | 2024-07-11 04:06 | XR ---
EXAM: XR Chest, 1 View CLINICAL HISTORY: ITS.REASON XR Reason: chest pain TECHNIQUE: Frontal view of the chest. COMPARISON: CTA chest: 07/11/2024 FINDINGS: An endotracheal tube terminates about 5 cm above the santino. The distal end of the enteric tube is seen extending below the diaphragm and out of the [id number]. Lungs: Demonstrate massive alveolar consolidation more centrally RT>LT, indistinguishable from pneumonia or pulmonary edema. Pleural space: No significant pleural effusion. No pneumothorax. Heart: There is cardiomegaly. Bones/joints: Degenerative spondylosis. No obvious acute osseous findings. IMPRESSION: Bilaterally massive alveolar consolidation demonstrated, left side more than the right , indistinguishable from pneumonia or pulmonary edema/ARDS. .
[2024-07-11] MEDS: FUROSEMIDE 10 MG/ML 4 ML VIAL IV STA (04:07)
[2024-07-11 04:10] LABS: ALT 31 U/L (4-49); AST 57 U/L (17-59); African American GFR (CKD) 73 (>60 ml/min/1.73 sqM); Albumin 4.1 g/dL (3.5-5.0); Alkaline Phosphatase 94 U/L (38-126); Anion Gap 18 mmol/L; Blood Urea Nitrogen 18 mg/dL (9-20); Calcium 8.6 mg/dL (8.4-10.2); Carbon Dioxide 13 mmol/L (22-30); Chloride 107 mmol/L (98-107); Glucose 313 mg/dL (74-99); Magnesium 2.6 mg/dL (1.6-2.3); Non-African American GFR(CKD) 63 (>60 ml/min/1.73 sqM); Potassium 4.3 mmol/L (3.5-5.1); Sodium 138 mmol/L (137-145); Total Bilirubin 0.9 mg/dL (0.2-1.3); Total Protein 7.7 g/dL (6.3-8.2)
[2024-07-11] MEDS ORDERED: fentaNYL (PF) 50 MCG/ML 2 ML AMP IVP PRN (04:11)
[2024-07-11 04:17] LABS: MCV 74.8 fL (80.0-100.0)
[2024-07-11 04:19] LABS: NT-Pro-B-Type Natriuretic Pept 2770 pg/mL
[2024-07-11 04:27] LABS: ABG Base Excess -10.4 mmol/L; ABG HCO3 23 mmol/L (21-25); ABG Oxygen Saturation 88.5 % (94-97); ABG PO2 83 mmHg (83-108); ABG TCO2 26 mmol/L (19-24); Allen Test Performed? Yes
--- NOTE | 2024-07-11 04:29 | XR ---
EXAM: XR Chest, 1 View CLINICAL HISTORY: Cardiac Arrest TECHNIQUE: Frontal view of the chest. COMPARISON: same day 232 hour IMPRESSION: Tip of enteric tube reached body of the stomach, not completely included in the [id number]. Wedge-shaped consolidation of right peritracheal region is new or increased, may suggest loculated pleural effusion, pericardial effusion versus worsening airspace disease. No change otherwise.
[2024-07-11 04:40] LABS: ABG PCO2 91 mmHg (35-45); ABG PH 7.01 (7.35-7.45)
[2024-07-11] MEDS: PIPERACILLIN-TAZOBACTAM 3.375 GM in SODIUM CHLORIDE 0.9% 100 ML IVPB STA (04:51)
[2024-07-11 05:09] LABS: Tear Drop Cells Present
[2024-07-11] MEDS: NOREPINEPHRINE 4 MG in SODIUM CHLORIDE 0.9% 250 ML IV SCH (06:03)
[2024-07-11 06:24] LABS: ABG Base Excess -8.8 mmol/L; ABG HCO3 21 mmol/L (21-25); ABG Oxygen Saturation 88.2 % (94-97); ABG PCO2 62 mmHg (35-45); ABG PO2 70 mmHg (83-108); ABG TCO2 23 mmol/L (19-24); Allen Test Performed? Yes
[2024-07-11] MEDS: HEPARIN SOD,PORK IN 0.45% NACL 25,000 UNIT in 0.45% NACL 1 250ML.BAG IV SCH (06:30)
[2024-07-11] MEDS: HEPARIN SODIUM 1,000 UN/ML (10ML VL) IV ONE (06:34)
[2024-07-11 06:35] LABS: ABG PH 7.14 (7.35-7.45)
[2024-07-11] MEDS: ASPIRIN 300 MG SUPP RECTAL STA (06:36)
[2024-07-11] MEDS ORDERED: ACETAMINOPHEN SUPPOSITORY 650 MG SUPP RECTAL PRN (06:48)
[2024-07-11] MEDS ORDERED: NALOXONE 0.4 MG/ML 1 ML VIAL IV PRN (06:48)
[2024-07-11] MEDS ORDERED: NA PHOS,M-B/NA PHOS,DI-BA 133 ML ENEMA RECTAL PRN (06:48)
[2024-07-11] MEDS ORDERED: MAGNESIUM SULFATE-D5W PMX 1 GM in DEXTROSE/WATER 1 100ML.BAG IVPB SCH (07:30)
[2024-07-11 08:15] LABS: Glucose,Whole Blood 201 mg/dL (70-110)
[2024-07-11] MEDS: CHLORHEXIDINE GLUCONATE 15 ML CUP MUCOUS MEM SCH (08:54)
[2024-07-11] MEDS: PANTOPRAZOLE 40 MG/10 ML VIAL IV SCH (08:54)
[2024-07-11] MEDS: CISATRACURIUM 2 MG/ML 5 ML VIAL IV ONE (09:35)
--- NOTE | 2024-07-11 10:02 | PCN ---
PROCEDURE NOTE PROCEDURE: Right radial art line. PREOPERATIVE DIAGNOSES: Frequent blood draws, blood gas monitoring, hypotension. POSTOPERATIVE DIAGNOSES: Frequent blood draws, blood gas monitoring, hypotension. OPERATORS: Dr. Arteaga, Dr. Calloway, and Dr. Pierson. There was informed consent and universal timeout. The procedure took place in the ICU, room 257. ARTERIAL LINE PLACEMENT: Indications: Hemodynamic monitoring. A time-out was completed verifying correct patient, procedure, site, positioning, and implant(s) or special equipment if applicable. Jarocho's test was performed to ensure adequate perfusion. The patient's right wrist or right groin was prepped and draped in sterile fashion. 1% Lidocaine was used to anesthetize the area. An 18G Arrow arterial line was introduced into the right radial artery. The catheter was threaded over the guide wire and the needle was removed with appropriate pulsatile blood return. Blood loss was minimal. The catheter was then sutured in place to the skin and a sterile dressing applied. Perfusion to the extremity distal to the point of catheter insertion was checked and found to be adequate. The patient tolerated the procedure well and there were no complications. There was good blood return and waveform. The patient tolerated the procedure well. The catheter was sutured in place. Sterile dressing applied by the nurse. There was no immediate complication. MMODL / IJN: [id number] /
--- NOTE | 2024-07-11 10:17 | PCN ---
PROCEDURE NOTE PROCEDURE: Left subclavian triple-lumen catheter. PREOPERATIVE DIAGNOSIS: Administration of fluids and pressors. POSTOPERATIVE DIAGNOSIS: Administration of fluids and pressors. DIRECTOR OF MECHANICAL ENGINEERING: Dr. Arteaga. FIRST SURGICAL ASSISTANTS: Dr. Lalitha Calloway and Dr. Shannon Pierson. The patient's procedure was done in room #257. There was informed consent and universal timeout. We used the left subclavian vein. TRIPLE LUMEN CATHETER PLACEMENT: Indication: Hemodynamic monitoring/Intravenous access. A time-out was completed verifying correct patient, procedure, site, positioning, and implant(s) or special equipment if applicable. The patient was placed in a dependent position appropriate for triple lumen catheter placement based on the vein to be cannulated. The patient's left shoulder or left neck or left groin was prepped and draped in sterile fashion. 1% Lidocaine was used to anesthetize the surrounding skin area. A triple lumen 9F Cordis catheter was introduced into the left subclavian vein using Seldinger technique. The catheter was threaded smoothly over the guide wire and appropriate blood return was obtained. Each lumen of the catheter was evacuated of air and flushed with sterile saline. The catheter was then sutured in place to the skin and a sterile dressing applied. Perfusion to the extremity distal to the point of catheter insertion was checked and found to be adequate. There was good blood return and waveform. The catheter was seen in the junction of the superior vena cava right atrium. The catheter was sutured in place. A sterile dressing was applied by the nurse. A chest x-ray was ordered. There was no immediate complication. The patient tolerated the procedure well. MMODL / IJN: [id number] /
[2024-07-11] MEDS ORDERED: DEXTROSE 50% SYRINGE 50 ML IVP PRN ×2 (10:27)
--- NOTE | 2024-07-11 10:34 | XR ---
EXAMINATION TYPE: XR chest 1V portable DATE OF EXAM: 07/11/2024 10:22 AM COMPARISON: Chest radiographs from 07/11/2024 CLINICAL INDICATION: Male, 78 years old with history of line placement; [facility] TECHNIQUE: XR chest 1V portable Frontal view of the chest. FINDINGS: Lungs/Pleura: Improved aeration of lungs on today's exam with persistent airspace opacities scattered throughout the lungs. No evidence of pneumothorax or large pleural effusion. Pulmonary vascularity: Unremarkable. Heart/mediastinum: Cardiomediastinal silhouette is unremarkable. Musculoskeletal: No acute osseous pathology. Other findings: None Lines/Tubes: Endotracheal tube with distal tip 7.9 cm above the santino. Nasogastric tube with its distal tip and side-port projecting under the diaphragm. Left internal jugular central venous catheter with distal tip at the cavoatrial junction. IMPRESSION: 1. Improved aeration of the lungs. 2. Support tubes in appropriate position. 3. Support line appropriate position. [facility], , 07/11/2024 10:32 AM
--- NOTE | 2024-07-11 11:23 | P.CNPUL ---
History of Present Illness Consult date: 07/11/24 Requesting physician: Luis Armando Varela Reason for consult: other (Ventilator/critical care management) Chief complaint: Cardiac arrest History of present illness: This is a 78-year-old male patient with a history of rheumatoid arthritis, hypertension, BPH. He was recently here in May for atypical chest pain and COVID-19 pneumonitis. Discharged home on May 15, 2024. Since that time he had been doing well. Pain the patient was having a 2 to 3-day history of worsening shortness of breath. He was active yesterday and cleaning out his garage and did complain of shortness of breath and some chest discomfort. He developed worsening shortness of breath throughout the night. EMS was called and the arrival the patient had collapse. He was pulseless and CPR was started taking approximately 5 minutes until return of spontaneous circulation. He was brought in and being assisted with a bag valve mask device and a pulse ox of 74 and then intubated in the emergency department. He was brought up to the intensive care unit. He is currently intubated, sedated on the mechanical v entilator at a rate of 24, tidal volume 450, FiO2 90% and a PEEP of 10. Blood gases had revealed a PaO2 of 70, pCO2 of 62 and a pH of 7.14 on 100% FiO2. He is on fentanyl at 1.5 mcg/kg/h. He is currently on a heparin drip per weight- based protocol. Norepinephrine at 13.5 mcg/min. Propofol at 30 mcg/kg/min. CT scan of the brain revealed no acute findings. CT angiogram revealed no evidence of pulmonary embolism. There is small bilateral effusions. Some patchy airspace opacity/consolidation throughout both lungs. Mild groundglass opacities. White count 19.7. Hemoglobin 14.6. Platelets 208. Sodium 138. Potassium 4.3. Bicarb 13. BUN 18. Creatinine 1.13. Glucose 313. Troponin 0 .588. proBNP 2770. TSH 7.36. Viral screen is negative. Review of Systems ROS unobtainable: due to endotracheal tube Past Medical History Past Medical History: No Reported History History of Any Multi-Drug Resistant Organisms: None Reported Past Surgical History: Orthopedic Surgery Additional Past Surgical History / Comment(s): neck surgery; right knee surgery; right shoulder surgery; lower back Past Anesthesia/Blood Transfusion Reactions: No Reported Reaction Smoking Status: Never smoker Medications and Allergies Home Medications Medication Instructions Recorded Confirmed Type Multivitamins, Thera [Multivitamin 1 tab PO DAILY 05/13/24 07/11/24 History (formulary)] NIFEdipine [Adalat CC] 30 mg PO DAILY PRN 05/13/24 07/11/24 History Anderson-3/Dha/Epa/Fish Oil [Fish Oil 2 cap PO DAILY 05/13/24 07/11/24 History 1,000 mg Softgel] Sennosides [Senokot] 8.6 mg PO DAILY PRN 05/13/24 07/11/24 History Tamsulosin HCl [Flomax] 0.4 mg PO HS 05/13/24 07/11/24 History hydrOXYzine HCL [Atarax] 25 mg PO HS PRN 05/13/24 07/11/24 History Etanercept [Enbrel] 50 mg SQ MO #0 05/15/24 07/11/24 Rx Allergies Allergy/AdvReac Type Severity Reaction Status Date / Time No Known Allergies Allergy Verified 07/11/24 09:38 Physical Exam Vitals: Vital Signs Temp Pulse Resp BP Pulse Ox FiO2 07/11/24 10:46 80 07/11/24 10:00 57 L 30 H 94/55 99 07/11/24 09:45 57 L 30 H 93/56 99 07/11/24 09:30 57 L 30 H 85/50 99 07/11/24 09:15 58 L 30 H 71/44 99 07/11/24 09:09 80 07/11/24 09:00 57 L 24 71/44 98 07/11/24 08:45 58 L 24 85/56 98 07/11/24 08:30 57 L 24 97/61 98 07/11/24 08:18 90 07/11/24 08:15 96.6 F L 56 L 24 107/66 98 07/11/24 08:00 90 07/11/24 07:41 96.8 F L 57 L 24 88/54 97 07/11/24 07:18 58 L 16 77/49 96 07/11/24 07:16 58 L 16 79/50 96 07/11/24 07:14 58 L 16 77/53 96 07/11/24 07:12 58 L 24 77/49 96 07/11/24 07:10 59 L 24 81/50 96 07/11/24 07:08 60 24 81/50 95 07/11/24 07:06 60 24 76/51 96 07/11/24 07:04 59 L 24 76/49 95 07/11/24 07:02 60 24 78/48 96 07/11/24 07:00 60 24 79/49 94 L 07/11/24 06:58 60 10 L 78/48 96 07/11/24 06:56 60 9 L 73/48 95 07/11/24 06:54 61 14 74/47 96 07/11/24 06:53 60 12 74/47 96 07/11/24 06:50 60 11 L 70/58 96 07/11/24 06:45 60 12 102/62 96 07/11/24 06:40 79 17 88/65 93 L 07/11/24 06:35 61 24 81/54 93 L 07/11/24 06:30 61 24 84/52 91 L 07/11/24 06:25 61 24 77/53 92 L 07/11/24 06:20 60 20 66/41 91 L 07/11/24 06:15 62 12 65/42 89 L 07/11/24 06:10 62 24 62/44 87 L 07/11/24 06:05 63 24 61/44 85 L 07/11/24 06:00 64 24 64/43 82 L 07/11/24 05:55 64 24 61/39 84 L 07/11/24 05:50 66 24 61/41 85 L 07/11/24 05:45 69 24 64/43 86 L 07/11/24 05:40 69 23 157/71 90 L 07/11/24 05:35 98 22 165/94 76 L 07/11/24 05:30 86 22 185/90 89 L 07/11/24 05:25 92 24 178/96 89 L 07/11/24 05:20 93 15 138/77 88 L 07/11/24 05:15 73 23 84/55 85 L 07/11/24 05:10 75 24 83/53 85 L 07/11/24 05:05 79 14 85/56 87 L 07/11/24 05:00 86 24 199/115 88 L 07/11/24 04:55 95.7 F L 96 23 198/101 89 L 07/11/24 04:47 100 07/11/24 04:35 95.3 F L 77 22 122/79 88 L 07/11/24 04:15 95.1 F L 86 20 167/78 89 L 07/11/24 04:05 95.1 F L 84 20 170/80 91 L 07/11/24 04:00 100 07/11/24 03:45 80 147/81 92 L 07/11/24 03:27 112 H 13 207/112 88 L 07/11/24 02:55 96.4 F L 112 H 16 183/99 93 L 07/11/24 02:45 114 H 18 199/100 94 L 100 07/11/24 02:40 112 H 18 202/100 94 L 07/11/24 02:35 110 H 16 184/88 95 07/11/24 02:30 108 H 20 171/100 93 L 07/11/24 02:25 106 H 20 201/101 91 L 07/11/24 02:20 96.8 F L 107 H 16 181/99 85 L Intake and Output 07/10/24 07/11/24 07/11/24 22:59 06:59 14:59 Intake Total 61.403 216.026 Output Total 295 Balance 61.403 -78.974 Intake: Intake, IV Titration 61.403 216.026 Amount Heparin Sod,Pork in 0.45% 30 NaCl 25,000 unit In 0.45 % NaCl 1 250ml.bag @ 11. 023 UNITS/KG/HR 10 mls/hr IV .Q24H HOLLI Rx#: [id number] Norepinephrine 4 mg In 17.857 106.284 Sodium Chloride 0.9% 250 ml @ 0.03 MCG/KG/MIN 10. 369 mls/hr IV .Q24H HOLLI Rx#:[id number] fentaNYL (PF). 1,000 mcg 10.886 58.514 In Sodium Chloride 0.9% 80 ml @ 0.5 MCG/KG/HR 4. 536 mls/hr IV .Q22H3M HOLLI Rx#:[id number] propofoL 1,000 mg In 32.66 21.228 Empty Bag 1 bag @ 15 MCG/ KG/MIN 8.165 mls/hr IV . [id number] HOLLI Rx#:[id number] Output: Urine 295 Other: Voiding Method Indwelling Catheter Weight 90.718 kg 90.718 kg ABP, PAP, CO, CI - Last 8 Hours Arterial Blood Pressure 94/54 Arterial Blood Pressure 86/40 GENERAL EXAM: Intubated, sedated 78-year-old male patient on the mechanical ventilator, in no apparent distress. HEAD: Normocephalic. EYES: Normal reaction of pupils, equal size. NOSE: Clear with pink turbinates. THROAT: Oral endotracheal and gastric tube secured in place. No erythema or exudates. NECK: No masses, no JVD. CHEST: No chest wall deformity. LUNGS: Equal air entry with bilateral scattered rhonchi. CVS: S1 and S2 normal with no audible murmur, regular rhythm. ABDOMEN: No hepatosplenomegaly, normal bowel sounds, no guarding or rigidity. SPINE: No scoliosis or deformity SKIN: No rashes CENTRAL NERVOUS SYSTEM: Sedated, tone is normal in all 4 extremities. EXTREMITIES: There is no peripheral edema. No clubbing, no cyanosis. Peripheral pulses are intact. Results - Laboratory Findings CBC and BMP: 07/11/24 02:25 07/11/24 02:25 ABG ABG pH 7.14 (7.35-7.45) L* 07/11/24 06:21 ABG pCO2 62 mmHg (35-45) H 07/11/24 06:21 ABG pO2 70 mmHg (83-108) L 07/11/24 06:21 ABG O2 Saturation 88.2 % (94-97) L 07/11/24 06:21 PT/INR, D-dimer PT 11.3 sec (10.0-12.5) 07/11/24 02:25 INR 1.0 (<1.2) 07/11/24 02:25 Abnormal lab findings: Abnormal Labs 07/11/24 07/11/24 07/11/24 02:25 02:25 02:25 WBC 19.7 H RBC 6.95 H MCV 74.8 L D MCH 21.1 L MCHC 28.2 L RDW 16.3 H Lymphocytes # 11.7 H Monocytes # 1.2 H Basophils # 0.3 H APTT 34.2 H ABG pH ABG pCO2 ABG pO2 ABG Total CO2 ABG O2 Saturation Carbon Dioxide 13 L Glucose 313 H POC Glucose (mg/dL) Plasma Lactic Acid Nuno Magnesium 2.6 H Troponin I TSH 7.630 H 07/11/24 07/11/24 07/11/24 02:25 04:24 06:21 WBC RBC MCV MCH MCHC RDW Lymphocytes # Monocytes # Basophils # APTT ABG pH 7.01 L* 7.14 L* ABG pCO2 91 H* 62 H ABG pO2 70 L ABG Total CO2 26 H ABG O2 Saturation 88.5 L 88.2 L Carbon Dioxide Glucose POC Glucose (mg/dL) Plasma Lactic Acid Nuno Magnesium Troponin I 0.588 H* TSH 07/11/24 07/11/24 07:45 08:14 WBC RBC MCV MCH MCHC RDW Lymphocytes # Monocytes # Basophils # APTT ABG pH ABG pCO2 ABG pO2 ABG Total CO2 ABG O2 Saturation Carbon Dioxide Glucose POC Glucose (mg/dL) 201 H Plasma Lactic Acid Nuno 3.2 H* Magnesium Troponin I TSH - Diagnostic Findings Chest x-ray: image reviewed Assessment and Plan Assessment: Outside the hospital cardiac arrest requiring 5 minutes of CPR prior to return of spontaneous circulation Acute hypoxemic respiratory failure secondary to above requiring intubation and mechanical ventilatory support Recent discharge in May 2024 for atypical chest pain and COVID-19 infection/pneumonitis Rheumatoid arthritis Hypertension Benign prostatic hyperplasia Plan: The patient was seen and evaluated Imaging, labs, ABGs and medications reviewed Increase the respiratory rate to 30 Continue to titrate down the FiO2 as tolerated Left subclavian triple-lumen catheter inserted Right radial arterial line inserted Continue the current medications Check a procalcitonin Remains on a heparin drip Cardiology consulted Currently a full code We will continue to follow and make further recommendations based on his clinical status I have personally seen and examined the patient, performed the documentation and the assessment and plan as written. Number of minutes spent on the visit: 20 Dictation was produced using ustymeation software. Please excuse any grammatical, word or spelling errors.
[2024-07-11 11:47] LABS: Glucose,Whole Blood 138 mg/dL (70-110)
[2024-07-11] MEDS: INSULIN ASPART (NovoLOG) 100 UNIT/ML VIAL SQ SCH (12:03)
--- NOTE | 2024-07-11 12:38 | P.CRDCN ---
History of Present Illness Consult date: 07/11/24 Chief complaint: SOB History of present illness: The patient is a 78-year-old gentleman with a past medical history significant for hypertension and rheumatoid arthritis and recently diagnosed of COVID-19 infection all this information was obtained from the chart. Currently the patient is intubated and he is on mechanical ventilation and history was taken from the chart as well as from the nurse taking care of the patient. The patient was in his usual state of health till earlier today when he was doing some work in his backyard and he was experiencing symptoms of chest discomfort and shortness of breath. Subsequent ambulance was called and upon arrival the patient collapsed and he was pulseless. CPR initiated for 5 minutes and brought to normal sinus mechanism. Subsequently patient was intubated and placed on mechanical ventilation. He was hypotensive and he continues to be hypotensive requiring norepinephrine. He was seen in intensive care unit. Currently he is still hemodynamically unstable and requiring norepinephrine. He is in sinus mechanism. I did review the EKG and that showed sinus mechanism with deep T wave inversion in the anterolateral leads concerning for severe underlying coronary artery disease versus stress-induced cardiomyopathy. At the same time the patient was admitted to the hospital last month with a chest discomfort in the setting of COVID with abnormal cardiac enzymes and he was treated medically at that point. Please note that the patient was experiencing chest discomfort and shortness of breath earlier today. No history of coronary artery disease or congestive heart failure or cardiac arrhythmia. The first set of troponin came in to be abnormal. The physical examination is remarkable for patient intubated on mechanical ventilation hemodynamically unstable with regular rate and rhythm and systolic murmur at the apical area and diminished breathing sounds bilaterally. Assessment Out of the hospital cardiopulmonary arrest Status post CPR with a downtime of 5 minutes Evidence of myocardial injury Abnormal EKG concerning for severe underlying CAD Multiple comorbid conditions Plan Continue heparin IV Add aspirin and statin to the current medical regimen Obtain an echocardiogram to assess for any wall motion abnormalities Consider coronary angiogram Follow-up with the patient Past Medical History Past Medical History: No Reported History History of Any Multi-Drug Resistant Organisms: None Reported Past Surgical History: Orthopedic Surgery Additional Past Surgical History / Comment(s): neck surgery; right knee surgery; right shoulder surgery; lower back Past Anesthesia/Blood Transfusion Reactions: No Reported Reaction Smoking Status: Never smoker Medications and Allergies Home Medications Medication Instructions Recorded Confirmed Type Multivitamins, Thera [Multivitamin 1 tab PO DAILY 05/13/24 07/11/24 History (formulary)] NIFEdipine [Adalat CC] 30 mg PO DAILY PRN 05/13/24 07/11/24 History [place]-3/Dha/Epa/Fish Oil [Fish Oil 2 cap PO DAILY 05/13/24 07/11/24 History 1,000 mg Softgel] Sennosides [Senokot] 8.6 mg PO DAILY PRN 05/13/24 07/11/24 History Tamsulosin HCl [Flomax] 0.4 mg PO HS 05/13/24 07/11/24 History hydrOXYzine HCL [Atarax] 25 mg PO HS PRN 05/13/24 07/11/24 History Etanercept [Enbrel] 50 mg SQ MO #0 05/15/24 07/11/24 Rx Allergies Allergy/AdvReac Type Severity Reaction Status Date / Time No Known Allergies Allergy Verified 07/11/24 09:38 Physical Exam Vitals: Vital Signs Temp Pulse Resp BP Pulse Ox FiO2 07/11/24 12:00 98.1 F 56 L 30 H 94/55 100 60 07/11/24 11:45 56 L 30 H 94/54 100 07/11/24 11:30 56 L 30 H 97/52 100 07/11/24 11:19 60 07/11/24 11:15 56 L 30 H 99/51 100 07/11/24 11:00 57 L 30 H 98/54 100 07/11/24 10:46 80 07/11/24 10:45 57 L 30 H 102/57 100 07/11/24 10:30 58 L 30 H 101/68 100 07/11/24 10:15 57 L 30 H 105/59 99 07/11/24 10:00 57 L 30 H 94/55 99 07/11/24 09:45 57 L 30 H 93/56 99 07/11/24 09:30 57 L 30 H 85/50 99 07/11/24 09:15 58 L 30 H 71/44 99 07/11/24 09:09 80 07/11/24 09:00 57 L 24 71/44 98 07/11/24 08:45 58 L 24 85/56 98 07/11/24 08:30 57 L 24 97/61 98 11/02/24 08:18 90 07/11/24 08:15 96.6 F L 56 L 24 107/66 98 07/11/24 08:00 90 07/11/24 07:41 96.8 F L 57 L 24 88/54 97 07/11/24 07:18 58 L 16 77/49 96 07/11/24 07:16 58 L 16 79/50 96 07/11/24 07:14 58 L 16 77/53 96 07/11/24 07:12 58 L 24 77/49 96 07/11/24 07:10 59 L 24 81/50 96 07/11/24 07:08 60 24 81/50 95 07/11/24 07:06 60 24 76/51 96 07/11/24 07:04 59 L 24 76/49 95 07/11/24 07:02 60 24 78/48 96 07/11/24 07:00 60 24 79/49 94 L 07/11/24 06:58 60 10 L 78/48 96 07/11/24 06:56 60 9 L 73/48 95 07/11/24 06:54 61 14 74/47 96 07/11/24 06:53 60 12 74/47 96 07/11/24 06:50 60 11 L 70/58 96 07/11/24 06:45 60 12 102/62 96 07/11/24 06:40 79 17 88/65 93 L 07/11/24 06:35 61 24 81/54 93 L 07/11/24 06:30 61 24 84/52 91 L 07/11/24 06:25 61 24 77/53 92 L 07/11/24 06:20 60 20 66/41 91 L 07/11/24 06:15 62 12 65/42 89 L 07/11/24 06:10 62 24 62/44 87 L 07/11/24 06:05 63 24 61/44 85 L 07/11/24 06:00 64 24 64/43 82 L 07/11/24 05:55 64 24 61/39 84 L 07/11/24 05:50 66 24 61/41 85 L 07/11/24 05:45 69 24 64/43 86 L 07/11/24 05:40 69 23 157/71 90 L 07/11/24 05:35 98 22 165/94 76 L 07/11/24 05:30 86 22 185/90 89 L 07/11/24 05:25 92 24 178/96 89 L 07/11/24 05:20 93 15 138/77 88 L 07/11/24 05:15 73 23 84/55 85 L 07/11/24 05:10 75 24 83/53 85 L 07/11/24 05:05 79 14 85/56 87 L 07/11/24 05:00 86 24 199/115 88 L 07/11/24 04:55 95.7 F L 96 23 198/101 89 L 07/11/24 04:47 100 07/11/24 04:35 95.3 F L 77 22 122/79 88 L 07/11/24 04:15 95.1 F L 86 20 167/78 89 L 07/11/24 04:05 95.1 F L 84 20 170/80 91 L 07/11/24 04:00 100 07/11/24 03:45 80 147/81 92 L 07/11/24 03:27 112 H 13 207/112 88 L 07/11/24 02:55 96.4 F L 112 H 16 183/99 93 L 07/11/24 02:45 114 H 18 199/100 94 L 100 07/11/24 02:40 112 H 18 202/100 94 L 07/11/24 02:35 110 H 16 184/88 95 07/11/24 02:30 108 H 20 171/100 93 L 07/11/24 02:25 106 H 20 201/101 91 L 07/11/24 02:20 96.8 F L 107 H 16 181/99 85 L Intake and Output 07/10/24 07/11/24 07/11/24 22:59 06:59 14:59 Intake Total 61.403 486.182 Output Total 355 Balance 61.403 131.182 Intake: Intake, IV Titration 61.403 486.182 Amount Heparin Sod,Pork in 0.45% 95.167 NaCl 25,000 unit In 0.45 % NaCl 1 250ml.bag @ 11. 023 UNITS/KG/HR 10 mls/hr IV .Q24H [facility] Rx#: [id number] Norepinephrine 4 mg In 17.857 265.161 Sodium Chloride 0.9% 250 ml @ 0.03 MCG/KG/MIN 10. 369 mls/hr IV .Q24H [facility] Rx#:[id number] fentaNYL (PF). 1,000 mcg 10.886 58.514 In Sodium Chloride 0.9% 80 ml @ 0.5 MCG/KG/HR 4. 536 mls/hr IV .Q22H3M [facility] Rx#:[id number] propofoL 1,000 mg In 32.66 67.340 Empty Bag 1 bag @ 15 MCG/ KG/MIN 8.165 mls/hr IV . [id number] [facility] Rx#:[id number] Output: Urine 355 Other: Voiding Method Indwelling Catheter Weight 90.718 kg 90.718 kg ABP, PAP, CO, CI - Last 8 Hours Arterial Blood Pressure 91/45 Arterial Blood Pressure 87/44 Arterial Blood Pressure 92/45 Arterial Blood Pressure 80/46 Arterial Blood Pressure 85/44 Arterial Blood Pressure 90/47 Arterial Blood Pressure 86/50 Arterial Blood Pressure 104/53 Arterial Blood Pressure 94/54 Arterial Blood Pressure 86/40 Results 07/11/24 02:25 07/11/24 02:25 Cardiac Enzymes 07/11/24 07/11/24 Range/Units 02:25 02:25 AST 57 (17-59) U/L Troponin I 0.588 H* (0.000-0.034) ng/mL Coagulation 07/11/24 07/11/24 Range/Units 02:25 11:03 PT 11.3 (10.0-12.5) sec APTT 34.2 H 72.7 H (22.0-30.0) sec CBC 07/11/24 Range/Units 02:25 WBC 19.7 H (3.8-10.6) k/uL RBC 6.95 H (4.30-5.90) m/uL Hgb 14.6 (13.0-17.5) gm/dL Hct 52.0 (39.0-53.0) % Plt Count 208 (150-450) k/uL Comprehensive Metabolic Panel 07/11/24 Range/Units 02:25 Sodium 138 (137-145) mmol/L Potassium 4.3 (3.5-5.1) mmol/L Chloride 107 (98-107) mmol/L Carbon Dioxide 13 L (22-30) mmol/L BUN 18 (9-20) mg/dL Creatinine 1.12 (0.66-1.25) mg/dL Glucose 313 H (74-99) mg/dL Calcium 8.6 (8.4-10.2) mg/dL AST 57 (17-59) U/L ALT 31 (4-49) U/L Alkaline Phosphatase 94 (38-126) U/L Total Protein 7.7 (6.3-8.2) g/dL Albumin 4.1 (3.5-5.0) g/dL Current Medications Generic Name Dose Route Start Last Admin Trade Name Freq PRN Reason Stop Dose Admin Acetaminophen 650 mg 07/11/24 06:48 Acetaminophen Suppository 650 Mg Supp RECTAL Q4HR PRN Fever And/ Or Mild Pain Albuterol/Ipratropium 3 ml 07/11/24 04:11 Ipratropium-Albuterol 3 Ml Neb INHALATION RT-Q2H PRN Shortness Of Breath Or Wheezing Chlorhexidine Gluconate 15 ml 07/11/24 09:00 07/11/24 08:54 Chlorhexidine Gluconate 15 Ml Cup MUCOUS MEM 15 ml BID [facility] Administration Dextrose/Water 25 ml 07/11/24 10:27 Dextrose 50% Syringe 50 Ml IVP PER PROTOCOL PRN Hypoglycemia Protocol Dextrose/Water 50 ml 07/11/24 10:27 Dextrose 50% Syringe 50 Ml IVP PER PROTOCOL PRN Hypoglycemia Protocol Fentanyl Citrate 50 mcg 07/11/24 04:11 Fentanyl (Pf) 50 Mcg/Ml 2 Ml Amp IVP Q2HR PRN Severe Pain (Scale 7 to 10) Propofol 1,000 mg/ IV Solution 100 mls @ 8.165 mls/hr 07/11/24 02:45 07/11/24 11:41 IV 30 mcg/kg/min .[id number] [facility] 16.329 mls/hr Administration Protocol 15 MCG/KG/MIN Fentanyl Citrate 1,000 mcg/ 100 mls @ 4.536 mls/hr 07/11/24 02:45 07/11/24 10:23 Sodium Chloride IV 1.5 mcg/kg/hr .Q22H3M [facility] 13.608 mls/hr Administration Protocol 0.5 MCG/KG/HR Norepinephrine Bitartrate 4 mg 254 mls @ 10.369 mls/hr 07/11/24 06:03 07/11/24 12:02 / Sodium Chloride IV 0.19 mcg/kg/min .Q24H [facility] 65.671 mls/hr Titration Protocol 0.03 MCG/KG/MIN Heparin Sodium/Sodium Chloride 250 mls @ 10 mls/hr 07/11/24 06:30 07/11/24 12:01 25,000 unit/ Sodium Chloride IV 9 units/kg/hr .Q24H [facility] 8.165 mls/hr Titration Protocol 11.023 UNITS/KG/HR Insulin Aspart 0 unit 07/11/24 12:00 07/11/24 12:03 Insulin Aspart (Novolog) 100 Unit/Ml Vial SQ Not Given Q6HR [facility] Protocol Morphine Sulfate 2 mg 07/11/24 06:48 Morphine Sulfate 2 Mg/Ml Syringe IV Q2HR PRN Moderate Pain (Scale 4 to 6) Naloxone HCl 0.2 mg 07/11/24 06:48 Naloxone 0.4 Mg/Ml 1 Ml Vial IV Q2M PRN Opioid Reversal Pantoprazole Sodium 40 mg 07/11/24 09:00 07/11/24 08:54 Pantoprazole 40 Mg/10 Ml Vial IV 40 mg DAILY [facility] Administration Sodium Biphosphate/Sodium Phosphate 133 ml 07/11/24 06:48 Na Phos,M-B/Na Phos,Di-Ba 133 Ml Enema RECTAL ONCE PRN Constipation Intake and Output 07/10/24 07/11/24 07/11/24 22:59 06:59 14:59 Intake Total 61.403 486.182 Output Total 355 Balance 61.403 131.182 Intake: Intake, IV Titration 61.403 486.182 Amount Heparin Sod,Pork in 0.45% 95.167 NaCl 25,000 unit In 0.45 % NaCl 1 250ml.bag @ 11. 023 UNITS/KG/HR 10 mls/hr IV .Q24H [facility] Rx#: [id number] Norepinephrine 4 mg In 17.857 265.161 Sodium Chloride 0.9% 250 ml @ 0.03 MCG/KG/MIN 10. 369 mls/hr IV .Q24H [facility] Rx#:[id number] fentaNYL (PF). 1,000 mcg 10.886 58.514 In Sodium Chloride 0.9% 80 ml @ 0.5 MCG/KG/HR 4. 536 mls/hr IV .Q22H3M [facility] Rx#:[id number] propofoL 1,000 mg In 32.66 67.340 Empty Bag 1 bag @ 15 MCG/ KG/MIN 8.165 mls/hr IV . [id number] [facility] Rx#:[id number] Output: Urine 355 Other: Voiding Method Indwelling Catheter Weight 90.718 kg 90.718 kg Patient Weight 07/12/24 05:59 Weight 90.718 kg 07/11/24 02:25 07/11/24 02:25
[2024-07-11] MEDS: LACTATED RINGERS 1,000 ML IV ONE (14:25)
[2024-07-11] MEDS: SODIUM CHLORIDE 0.9% 1,000 ML IV SCH (14:25)
[2024-07-11] MEDS: NOREPINEPHRINE 8 MG in SODIUM CHLORIDE 0.9% 250 ML IV SCH (14:30)
--- NOTE | 2024-07-11 15:04 | P.HPIM ---
History of Present Illness H&P Date: 07/11/24 Patient is a 78-year-old male with PMH of rheumatoid arthritis, hypertension and BPH was brought to the emergency department via EMS for suspected cardiopulmonary arrest who is currently intubated and admitted to the medical ICU. History is obtained from the ICU nurse and the ER note. Apparently, patient was at home and active and was cleaning his garage when he started to feel some chest discomfort and became short of breath. Patient's called EMS who reached their within 5 minutes and found patient to be unresponsive and pulseless. CPR was initiated and was performed for 4 minutes before ROSC was achieved. In transit, patient required BVM because of hypoxia with a maximum oxygen saturation in the 70s. Patient was then brought to the ER and was intubated and subsequently transferred to the ICU for further treatment and management. His initial laboratory evaluation shows WBC of 19.7, hemoglobin 14.6, MCV of 74.8, platelet count 2 8, sodium 138, potassium 4.3, chloride 117, bicarb 13, BUN 18, creatinine 1.8. His cardiac troponin has been trending upward from 0.588--->14.9. Patient was recently seen at the hospital for the complaint of chest pain. Patient was diagnosed with type II NH slightly with elevated troponins likely secondary to COVID-19 pneumonitis. Echocardiogram showed LVEF of 55% and moderate pulmonary hypertension. Viral panel negative. Chest x-ray interpreted independently shows diffuse patchy infiltrate with groundglass opacities and bilateral pleural effusion. Brain CT shows no acute intracranial process. Chest CTA is negative for pulmonary embolism and patchy opacities throughout both lungs with small bilateral pleural effusions. EKG interpreted independently shows sinus bradycardia with a regular branch block. T wave inversions in anteroseptal and lateral leads. Review of systems: Unable to assess for ROS as above Physical examination: Vital signs reviewed General: Patient intubated, under sedation, in no acute distress Derm: no unusual rashes/lesions, warm Head: atraumatic, normocephalic, symmetric Eyes: pupils equal round reactive to light ENT: Nose and ears atraumatic Neck: No cervical lymphadenopathy, trachea midline, supple Mouth: Oral endotracheal and gastric tube secured in place Cardiovascular: S1S2 reg, no murmur, positive dorsalis pedis pulse bilateral, no edema Lungs: No chest wall deformity Abdominal: soft, nontender to palpation, no guarding MSK: Patient is sedated, normal tone in all 4 extremities Assessment/Plan: Patient is a 78-year-old male with PMH of rheumatoid arthritis, hypertension and BPH was brought to the emergency department via EMS for suspected cardiopulmonary arrest who is currently intubated and admitted to the medical ICU. #Out of the hospital cardiopulmonary arrest #Elevated troponin, secondary to NSTEMI #Recent history of atypical chest pain and COVID-19 pneumonitis Patient currently admitted in medical ICU, sedated and intubated Brain CT shows no acute intracranial process. Chest CTA is negative for pulmonary embolism and patchy opacities throughout both lungs with small bilateral pleural effusions T wave inversions in anteroseptal and lateral leads interpreted on EKG Troponin level trending upward from 0.588--->14.9, continue to trend troponin Cardiology consulted, consider coronary angiogram Obtain echocardiogram Heparin drip Aspirin 81 mg p.o. daily, statin 40 mg p.o. at bedtime Morphine 2 mg IV every 2 hour as needed for chest pain Continue cardiac monitoring Lipid panel done on 05/14/2024 TSH 7.63, free T4 0.8 Pulmonology consulted; note reviewed Sedation holiday and spontaneous breathing trials as per ICU protocol #Leukocytosis reactive to above WBC 19.7, continue monitor CBC #Anion gap metabolic acidosis secondary to lactic acid Sodium 138, chloride 107, bicarb 13, anion gap 18 Lactic acid 3.2 #Euthyroid sick syndrome secondary above TSH 7.63, free T40.8 #Hypomagnesemia Mag 2.6 Continue monitor magnesium level Chronic conditions: BPH: Hold Flomax Hypertension: Hold nifedipine DVT prophylaxis: Heparin drip The patient is admitted with an anticipated more than 2 midnight stay for jimbo luation of suspected cardiopulmonary arrest CODE STATUS: Full code Discussed with: Per note Anticipated discharge place: Pending clinical course I saw and evaluated the patient during the pedroza and critical portions of this encounter, and discussed the case in detail with the resident author of this note, I agree with the Assessment and Plan, and my changes, if any, are highlighted in blue. Past Medical History Past Medical History: No Reported History Additional Past Medical History / Comment(s): covid +/CP with hospital admission may 2024 History of Any Multi-Drug Resistant Organisms: None Reported Past Surgical History: Orthopedic Surgery Additional Past Surgical History / Comment(s): neck surgery; right knee surgery; right shoulder surgery; lower back Past Anesthesia/Blood Transfusion Reactions: No Reported Reaction Smoking Status: Never smoker Medications and Allergies Home Medications Medication Instructions Recorded Confirmed Type Multivitamins, Thera [Multivitamin 1 tab PO DAILY 05/13/24 07/11/24 History (formulary)] NIFEdipine [Adalat CC] 30 mg PO DAILY PRN 05/13/24 07/11/24 History [place]-3/Dha/Epa/Fish Oil [Fish Oil 2 cap PO DAILY 05/13/24 07/11/24 History 1,000 mg Softgel] Sennosides [Senokot] 8.6 mg PO DAILY PRN 05/13/24 07/11/24 History Tamsulosin HCl [Flomax] 0.4 mg PO HS 05/13/24 07/11/24 History hydrOXYzine HCL [Atarax] 25 mg PO HS PRN 05/13/24 07/11/24 History Etanercept [Enbrel] 50 mg SQ MO #0 05/15/24 07/11/24 Rx Allergies Allergy/AdvReac Type Severity Reaction Status Date / Time No Known Allergies Allergy Verified 07/11/24 09:38 Physical Exam Osteopathic Statement: *. No significant issues noted on an osteopathic structural exam other than those noted in the History and Physical/Consult. Vitals: Vital Signs Temp Pulse Resp BP Pulse Ox FiO2 07/11/24 14:00 55 L 30 H 110/61 100 07/11/24 13:45 55 L 30 H 111/60 100 07/11/24 13:30 56 L 30 H 103/79 100 07/11/24 13:15 56 L 30 H 110/59 100 07/11/24 13:00 99.3 F 56 L 30 H 106/60 100 07/11/24 12:45 56 L 30 H 106/60 100 07/11/24 12:30 55 L 30 H 101/54 100 07/11/24 12:15 56 L 30 H 98/55 100 07/11/24 12:00 98.1 F 56 L 30 H 94/55 100 60 07/11/24 11:45 56 L 30 H 94/54 100 07/11/24 11:30 56 L 30 H 97/52 100 07/11/24 11:19 60 07/11/24 11:15 56 L 30 H 99/51 100 07/11/24 11:00 57 L 30 H 98/54 100 07/11/24 10:46 80 07/11/24 10:45 57 L 30 H 102/57 100 07/11/24 10:30 58 L 30 H 101/68 100 07/11/24 10:15 57 L 30 H 105/59 99 07/11/24 10:00 57 L 30 H 94/55 99 07/11/24 09:45 57 L 30 H 93/56 99 07/11/24 09:30 57 L 30 H 85/50 99 07/11/24 09:15 58 L 30 H 71/44 99 07/11/24 09:09 80 07/11/24 09:00 57 L 24 71/44 98 07/11/24 08:45 58 L 24 85/56 98 07/11/24 08:30 57 L 24 97/61 98 07/11/24 08:18 90 07/11/24 08:15 96.6 F L 56 L 24 107/66 98 07/11/24 08:00 90 07/11/24 07:41 96.8 F L 57 L 24 88/54 97 07/11/24 07:18 58 L 16 77/49 96 07/11/24 07:16 58 L 16 79/50 96 07/11/24 07:14 58 L 16 77/53 96 07/11/24 07:12 58 L 24 77/49 96 07/11/24 07:10 59 L 24 81/50 96 07/11/24 07:08 60 24 81/50 95 07/11/24 07:06 60 24 76/51 96 07/11/24 07:04 59 L 24 76/49 95 07/11/24 07:02 60 24 78/48 96 07/11/24 07:00 60 24 79/49 94 L 07/11/24 06:58 60 10 L 78/48 96 07/11/24 06:56 60 9 L 73/48 95 07/11/24 06:54 61 14 74/47 96 07/11/24 06:53 60 12 74/47 96 07/11/24 06:50 60 11 L 70/58 96 07/11/24 06:45 60 12 102/62 96 07/11/24 06:40 79 17 88/65 93 L 07/11/24 06:35 61 24 81/54 93 L 07/11/24 06:30 61 24 84/52 91 L 07/11/24 06:25 61 24 77/53 92 L 07/11/24 06:20 60 20 66/41 91 L 07/11/24 06:15 62 12 65/42 89 L 07/11/24 06:10 62 24 62/44 87 L 07/11/24 06:05 63 24 61/44 85 L 07/11/24 06:00 64 24 64/43 82 L 07/11/24 05:55 64 24 61/39 84 L 07/11/24 05:50 66 24 61/41 85 L 07/11/24 05:45 69 24 64/43 86 L 07/11/24 05:40 69 23 157/71 90 L 07/11/24 05:35 98 22 165/94 76 L 07/11/24 05:30 86 22 185/90 89 L 07/11/24 05:25 92 24 178/96 89 L 07/11/24 05:20 93 15 138/77 88 L 07/11/24 05:15 73 23 84/55 85 L 07/11/24 05:10 75 24 83/53 85 L 07/11/24 05:05 79 14 85/56 87 L 07/11/24 05:00 86 24 199/115 88 L 07/11/24 04:55 95.7 F L 96 23 198/101 89 L 07/11/24 04:47 100 07/11/24 04:35 95.3 F L 77 22 122/79 88 L 07/11/24 04:15 95.1 F L 86 20 167/78 89 L 07/11/24 04:05 95.1 F L 84 20 170/80 91 L 07/11/24 04:00 100 07/11/24 03:45 80 147/81 92 L 07/11/24 03:27 112 H 13 207/112 88 L 07/11/24 02:55 96.4 F L 112 H 16 183/99 93 L 07/11/24 02:45 114 H 18 199/100 94 L 100 07/11/24 02:40 112 H 18 202/100 94 L 07/11/24 02:35 110 H 16 184/88 95 07/11/24 02:30 108 H 20 171/100 93 L 07/11/24 02:25 106 H 20 201/101 91 L 07/11/24 02:20 96.8 F L 107 H 16 181/99 85 L Intake and Output 07/10/24 07/11/24 07/11/24 22:59 06:59 14:59 Intake Total 61.403 541.278 Output Total 385 Balance 61.403 156.278 Intake: IV 6 NS flush 6 Intake, IV Titration 61.403 535.278 Amount Heparin Sod,Pork in 0.45% 95.167 NaCl 25,000 unit In 0.45 % NaCl 1 250ml.bag @ 11. 023 UNITS/KG/HR 10 mls/hr IV .Q24H [facility] Rx#: [id number] Norepinephrine 4 mg In 17.857 265.161 Sodium Chloride 0.9% 250 ml @ 0.03 MCG/KG/MIN 10. 369 mls/hr IV .Q24H [facility] Rx#:[id number] Norepinephrine 8 mg In 11.674 Sodium Chloride 0.9% 250 ml @ 0.19 MCG/KG/MIN 33. 353 mls/hr IV .Q7H45M [facility] Rx#:[id number] fentaNYL (PF). 1,000 mcg 10.886 95.936 In Sodium Chloride 0.9% 80 ml @ 0.5 MCG/KG/HR 4. 536 mls/hr IV .Q22H3M [facility] Rx#:[id number] propofoL 1,000 mg In 32.66 67.340 Empty Bag 1 bag @ 15 MCG/ KG/MIN 8.165 mls/hr IV . [id number] [facility] Rx#:[id number] Output: Urine 385 Other: Voiding Method Indwelling Catheter Weight 90.718 kg 90.718 kg ABP, PAP, CO, CI - Last 8 Hours Arterial Blood Pressure 106/47 Arterial Blood Pressure 103/46 Arterial Blood Pressure 100/47 Arterial Blood Pressure 102/47 Arterial Blood Pressure 95/47 Arterial Blood Pressure 97/46 Arterial Blood Pressure 94/45 Arterial Blood Pressure 85/46 Arterial Blood Pressure 91/45 Arterial Blood Pressure 87/44 Arterial Blood Pressure 92/45 Arterial Blood Pressure 80/46 Arterial Blood Pressure 85/44 Arterial Blood Pressure 90/47 Arterial Blood Pressure 86/50 Arterial Blood Pressure 104/53 Arterial Blood Pressure 94/54 Arterial Blood Pressure 86/40 Results CBC & Chem 7: 07/11/24 02:25 07/11/24 02:25 Labs: Abnormal Lab Results - Last 24 Hours (Table) 07/11/24 07/11/24 07/11/24 Range/Units 02:25 02:25 02:25 WBC 19.7 H (3.8-10.6) k/uL RBC 6.95 H (4.30-5.90) m/uL MCV 74.8 L D (80.0-100.0) fL MCH 21.1 L (25.0-35.0) pg MCHC 28.2 L (31.0-37.0) g/dL RDW 16.3 H (11.5-15.5) % Lymphocytes # 11.7 H (1.0-4.8) k/uL Monocytes # 1.2 H (0-1.0) k/uL Basophils # 0.3 H (0-0.2) k/uL APTT 34.2 H (22.0-30.0) sec ABG pH (7.35-7.45) ABG pCO2 (35-45) mmHg ABG pO2 (83-108) mmHg ABG Total CO2 (19-24) mmol/L ABG O2 Saturation (94-97) % Carbon Dioxide 13 L (22-30) mmol/L Glucose 313 H (74-99) mg/dL POC Glucose (mg/dL) (70-110) mg/dL Plasma Lactic Acid Nuno (0.7-2.0) mmol/L Magnesium 2.6 H (1.6-2.3) mg/dL Troponin I (0.000-0.034) ng/mL TSH 7.630 H (0.465-4.680) mIU/L 07/11/24 07/11/24 07/11/24 Range/Units 02:25 04:24 06:21 WBC (3.8-10.6) k/uL RBC (4.30-5.90) m/uL MCV (80.0-100.0) fL MCH (25.0-35.0) pg MCHC (31.0-37.0) g/dL RDW (11.5-15.5) % Lymphocytes # (1.0-4.8) k/uL Monocytes # (0-1.0) k/uL Basophils # (0-0.2) k/uL APTT (22.0-30.0) sec ABG pH 7.01 L* 7.14 L* (7.35-7.45) ABG pCO2 91 H* 62 H (35-45) mmHg ABG pO2 70 L (83-108) mmHg ABG Total CO2 26 H (19-24) mmol/L ABG O2 Saturation 88.5 L 88.2 L (94-97) % Carbon Dioxide (22-30) mmol/L Glucose (74-99) mg/dL POC Glucose (mg/dL) (70-110) mg/dL Plasma Lactic Acid Nuno (0.7-2.0) mmol/L Magnesium (1.6-2.3) mg/dL Troponin I 0.588 H* (0.000-0.034) ng/mL TSH (0.465-4.680) mIU/L 07/11/24 07/11/24 07/11/24 Range/Units 07:45 08:14 11:03 WBC (3.8-10.6) k/uL RBC (4.30-5.90) m/uL MCV (80.0-100.0) fL MCH (25.0-35.0) pg MCHC (31.0-37.0) g/dL RDW (11.5-15.5) % Lymphocytes # (1.0-4.8) k/uL Monocytes # (0-1.0) k/uL Basophils # (0-0.2) k/uL APTT 72.7 H (22.0-30.0) sec ABG pH (7.35-7.45) ABG pCO2 (35-45) mmHg ABG pO2 (83-108) mmHg ABG Total CO2 (19-24) mmol/L ABG O2 Saturation (94-97) % Carbon Dioxide (22-30) mmol/L Glucose (74-99) mg/dL POC Glucose (mg/dL) 201 H (70-110) mg/dL Plasma Lactic Acid Nuno 3.2 H* (0.7-2.0) mmol/L Magnesium (1.6-2.3) mg/dL Troponin I (0.000-0.034) ng/mL TSH (0.465-4.680) mIU/L 07/11/24 07/11/24 Range/Units 11:46 12:15 WBC (3.8-10.6) k/uL RBC (4.30-5.90) m/uL MCV (80.0-100.0) fL MCH (25.0-35.0) pg MCHC (31.0-37.0) g/dL RDW (11.5-15.5) % Lymphocytes # (1.0-4.8) k/uL Monocytes # (0-1.0) k/uL Basophils # (0-0.2) k/uL APTT (22.0-30.0) sec ABG pH (7.35-7.45) ABG pCO2 (35-45) mmHg ABG pO2 (83-108) mmHg ABG Total CO2 (19-24) mmol/L ABG O2 Saturation (94-97) % Carbon Dioxide (22-30) mmol/L Glucose (74-99) mg/dL POC Glucose (mg/dL) 138 H (70-110) mg/dL Plasma Lactic Acid Nuno (0.7-2.0) mmol/L Magnesium (1.6-2.3) mg/dL Troponin I 14.900 H* (0.000-0.034) ng/mL TSH (0.465-4.680) mIU/L
[2024-07-11 18:36] LABS: Glucose,Whole Blood 128 mg/dL (70-110)
[2024-07-11] MEDS: HEPARIN SODIUM 1,000 UN/ML (10ML VL) IV PRN (19:48)
[2024-07-11] MEDS: ATORVASTATIN 40 MG TAB PO SCH (20:39)
[2024-07-11 23:14] LABS: Glucose,Whole Blood 113 mg/dL (70-110)
[2024-07-11 23:34] LABS: African American GFR (CKD) 58 (>60 ml/min/1.73 sqM); Anion Gap 6 mmol/L; Blood Urea Nitrogen 27 mg/dL (9-20); Calcium 7.9 mg/dL (8.4-10.2); Carbon Dioxide 17 mmol/L (22-30); Chloride 114 mmol/L (98-107); Glucose 126 mg/dL (74-99); Non-African American GFR(CKD) 50 (>60 ml/min/1.73 sqM); Potassium 4.3 mmol/L (3.5-5.1); Sodium 137 mmol/L (137-145)
[2024-07-12] MEDS: ACETAMINOPHEN TAB 325 MG TAB PO PRN (00:04)
[2024-07-12 05:18] LABS: Anisocytosis Slight; HCT 35.7 % (39.0-53.0); Hypochromasia Slight; MCHC 31.6 g/dL (31.0-37.0); Mean Platelet Volume 9.1; Microcytosis Marked; Platelet Count 177 k/uL (150-450); RBC 5.38 m/uL (4.30-5.90); RDW 16.9 % (11.5-15.5)
[2024-07-12 05:18] LABS: Glucose,Whole Blood 116 mg/dL (70-110)
[2024-07-12 05:29] LABS: HGB 11.3 gm/dL (13.0-17.5); MCV 66.4 fL (80.0-100.0)
[2024-07-12 05:33] LABS: African American GFR (CKD) >90 (>60 ml/min/1.73 sqM); Anion Gap -1 mmol/L; Blood Urea Nitrogen 20 mg/dL (9-20); Carbon Dioxide 12 mmol/L (22-30); Chloride 128 mmol/L (98-107); Glucose 77 mg/dL (74-99); Non-African American GFR(CKD) 83 (>60 ml/min/1.73 sqM); Sodium 139 mmol/L (137-145)
[2024-07-12 05:36] LABS: Calcium 4.7 mg/dL (8.4-10.2); Potassium 2.4 mmol/L (3.5-5.1)
[2024-07-12 05:58] LABS: Anisocytosis Slight; HCT 36.1 % (39.0-53.0); HGB 11.4 gm/dL (13.0-17.5); Hypochromasia Slight; MCH 20.9 pg (25.0-35.0); MCHC 31.6 g/dL (31.0-37.0); MCV 66.3 fL (80.0-100.0); Mean Platelet Volume 9.2; Microcytosis Marked; Platelet Count 166 k/uL (150-450); RBC 5.44 m/uL (4.30-5.90); RDW 16.6 % (11.5-15.5); WBC 9.6 k/uL (3.8-10.6)
[2024-07-12 06:13] LABS: ABG Base Excess -2.6 mmol/L; ABG HCO3 20 mmol/L (21-25); ABG Oxygen Saturation 99.9 % (94-97); ABG PCO2 26 mmHg (35-45); ABG PH 7.49 (7.35-7.45); ABG PO2 163 mmHg (83-108); ABG TCO2 20 mmol/L (19-24); Allen Test Performed? Yes
[2024-07-12 06:33] LABS: African American GFR (CKD) 53 (>60 ml/min/1.73 sqM); Anion Gap 4 mmol/L; Blood Urea Nitrogen 29 mg/dL (9-20); Calcium 7.8 mg/dL (8.4-10.2); Carbon Dioxide 18 mmol/L (22-30); Chloride 114 mmol/L (98-107); Glucose 114 mg/dL (74-99); Non-African American GFR(CKD) 45 (>60 ml/min/1.73 sqM); Potassium 3.9 mmol/L (3.5-5.1); Sodium 136 mmol/L (137-145)
--- NOTE | 2024-07-12 07:12 | XR ---
EXAMINATION TYPE: XR chest 1V portable DATE OF EXAM: 07/12/2024 5:09 AM COMPARISON: Chest radiograph from one day prior. CLINICAL INDICATION: Male, 78 years old with history of Tube placement; [facility] TECHNIQUE: XR chest 1V portable Frontal view of the chest. FINDINGS: Lungs/Pleura: Improved aeration of lungs on today's exam with persistent airspace opacities scattered throughout the lungs. No evidence of pneumothorax or large pleural effusion. Pulmonary vascularity: Unremarkable. Heart/mediastinum: Cardiomediastinal silhouette is unremarkable. Musculoskeletal: No acute osseous pathology. There is fixation hardware in the lower cervical spine. Other findings: None Lines/Tubes: Endotracheal tube with distal tip 2.3 cm above the santino. Nasogastric tube with its distal tip and side-port projecting under the diaphragm. Left central venous catheter with distal tip at the cavoatrial junction. IMPRESSION: 1. Improved aeration of the lungs. 2. Support tubes in appropriate position. 3. Support line appropriate position. [facility], , 07/12/2024 7:09 AM
[2024-07-12] MEDS: POTASSIUM CHLORIDE 10 MEQ in WATER FOR INJECTION 1 100ML.BAG IVPB SCH (07:22)
--- NOTE | 2024-07-12 09:04 | P.PN ---
Subjective Progress Note Date: 07/12/24 The patient is a 78-year-old gentleman with a past medical history significant for hypertension and rheumatoid arthritis and recently diagnosed of COVID-19 infection all this information was obtained from the chart. Currently the patient is intubated and he is on mechanical ventilation and history was taken from the chart as well as from the nurse taking care of the patient. The patient was in his usual state of health till earlier today when he was doing some work in his backyard and he was experiencing symptoms of chest discomfort and shortness of breath. Subsequent ambulance was called and upon arrival the patient collapsed and he was pulseless. CPR initiated for 5 minutes and brought to normal sinus mechanism. Subsequently patient was intubated and placed on mechanical ventilation. He was hypotensive and he continues to be hypotensive requiring norepinephrine. He was seen in intensive care unit. Currently he is still hemodynamically unstable and requiring norepinephrine. He is in sinus mechanism. I did review the EKG and that showed sinus mechanism with deep T wave inversion in the anterolateral leads concerning for severe underlying coronary artery disease versus stress-induced cardiomyopathy. At the same time the patient was admitted to the hospital last month with a chest discomfort in the setting of COVID with abnormal cardiac enzymes and he was treated medically at that point. Please note that the patient was experiencing chest discomfort and shortness of breath earlier today. No history of coronary artery disease or congestive heart failure or cardiac arrhythmia. The first set of troponin came in to be abnormal. The physical examination is remarkable for patient intubated on mechanical ventilation hemodynamically unstable with regular rate and rhythm and systolic murmur at the apical area and diminished breathing sounds bilaterally. August 08, 2024 The patient was seen and evaluated this morning. He continues to be intubated on mechanical ventilation and continues to be also on vasopressors. He is maintaining normal sinus mechanism. The plan is to pursue with a heart catheterization. The physical examination is remarkable for regular rhythm with a distant heart sounds and diminished breathing sounds bilaterally and no edema was noted in the lower extremities. Assessment Out of the hospital cardiopulmonary arrest Status post CPR with a downtime of 5 minutes Evidence of myocardial injury Abnormal EKG concerning for severe underlying CAD Multiple comorbid conditions Plan Continue heparin IV Continue aspirin and statin Proceed with coronary angiogram later on today Objective - Vital Signs Vital signs: Vital Signs Temp 98.7 F 07/12/24 08:00 Pulse 48 L 07/12/24 08:15 Resp 30 H 11/03/24 08:15 BP 106/60 07/12/24 08:15 Pulse Ox 98 07/12/24 08:15 FiO2 40 07/12/24 08:00 Intake & Output 07/11/24 07/12/24 07/12/24 19:59 06:59 18:59 Intake Total 173.391 Output Total 105 Balance 68.391 Weight Intake: IV 43 NS flush 3 Sodium Chloride 0.9% 1, 40 000 ml @ 20 mls/hr IV . Q24H [facility] Rx#:[id number] Intake, IV Titration 130.391 Amount Heparin Sod,Pork in 0.45% NaCl 25,000 unit In 0.45 % NaCl 1 250ml.bag @ 11. 023 UNITS/KG/HR 10 mls/hr IV .Q24H [facility] Rx#: [id number] Lactated Ringers 1,000 ml @ 999 mls/hr IV .Q1H1M ONE Rx#:[id number] Norepinephrine 4 mg In Sodium Chloride 0.9% 250 ml @ 0.03 MCG/KG/MIN 10. 369 mls/hr IV .Q24H [facility] Rx#:[id number] Norepinephrine 8 mg In Sodium Chloride 0.9% 250 ml @ 0.19 MCG/KG/MIN 33. 353 mls/hr IV .Q7H45M [facility] Rx#:[id number] Potassium Chloride 10 meq 100 In Water For Injection 1 100ml.bag @ 100 mls/hr IVPB Q1H [facility] Rx#: [id number] Sodium Chloride 0.9% 1, 000 ml @ 20 mls/hr IV . Q24H [facility] Rx#:[id number] fentaNYL (PF). 1,000 mcg In Sodium Chloride 0.9% 80 ml @ 0.5 MCG/KG/HR 4. 536 mls/hr IV .Q22H3M [facility] Rx#:[id number] propofoL 1,000 mg In 30.391 Empty Bag 1 bag @ 15 MCG/ KG/MIN 8.165 mls/hr IV . [id number] [facility] Rx#:[id number] Tube Feeding Other Output: Urine 105 Other: Voiding Method Indwelling Catheter ABP, PAP, CO, CI - Last Documented Arterial Blood Pressure 110/41 - Labs CBC & Chem 7: 07/12/24 05:45 07/12/24 05:45 Labs: Abnormal Lab Results - Last 24 Hours (Table) 07/11/24 07/11/24 07/11/24 Range/Units 11:03 11:03 11:46 Hgb (13.0-17.5) gm/dL Hct (39.0-53.0) % MCV (80.0-100.0) fL MCH (25.0-35.0) pg RDW (11.5-15.5) % APTT 72.7 H (22.0-30.0) sec ABG pH (7.35-7.45) ABG pCO2 (35-45) mmHg ABG pO2 (83-108) mmHg ABG HCO3 (21-25) mmol/L ABG O2 Saturation (94-97) % Hemoglobin (13.0-17.5) gm/dL Sodium (137-145) mmol/L Potassium (3.5-5.1) mmol/L Chloride (98-107) mmol/L Carbon Dioxide (22-30) mmol/L BUN (9-20) mg/dL Creatinine (0.66-1.25) mg/dL Glucose (74-99) mg/dL POC Glucose (mg/dL) 138 H (70-110) mg/dL Calcium (8.4-10.2) mg/dL Troponin I (0.000-0.034) ng/mL Procalcitonin 2.82 H (0.02-0.50) ng/mL 07/11/24 07/11/24 07/11/24 Range/Units 12:15 16:40 18:30 Hgb (13.0-17.5) gm/dL Hct (39.0-53.0) % MCV (80.0-100.0) fL MCH (25.0-35.0) pg RDW (11.5-15.5) % APTT 39.7 H (22.0-30.0) sec ABG pH (7.35-7.45) ABG pCO2 (35-45) mmHg ABG pO2 (83-108) mmHg ABG HCO3 (21-25) mmol/L ABG O2 Saturation (94-97) % Hemoglobin (13.0-17.5) gm/dL Sodium (137-145) mmol/L Potassium (3.5-5.1) mmol/L Chloride (98-107) mmol/L Carbon Dioxide (22-30) mmol/L BUN (9-20) mg/dL Creatinine (0.66-1.25) mg/dL Glucose (74-99) mg/dL POC Glucose (mg/dL) (70-110) mg/dL Calcium (8.4-10.2) mg/dL Troponin I 14.900 H* 21.100 H* (0.000-0.034) ng/mL Procalcitonin (0.02-0.50) ng/mL 07/11/24 07/11/24 07/11/24 Range/Units 18:33 20:55 22:57 Hgb (13.0-17.5) gm/dL Hct (39.0-53.0) % MCV (80.0-100.0) fL MCH (25.0-35.0) pg RDW (11.5-15.5) % APTT (22.0-30.0) sec ABG pH (7.35-7.45) ABG pCO2 (35-45) mmHg ABG pO2 (83-108) mmHg ABG HCO3 (21-25) mmol/L ABG O2 Saturation (94-97) % Hemoglobin (13.0-17.5) gm/dL Sodium (137-145) mmol/L Potassium (3.5-5.1) mmol/L Chloride 114 H (98-107) mmol/L Carbon Dioxide 17 L (22-30) mmol/L BUN 27 H (9-20) mg/dL Creatinine 1.35 H (0.66-1.25) mg/dL Glucose 126 H (74-99) mg/dL POC Glucose (mg/dL) 128 H (70-110) mg/dL Calcium 7.9 L (8.4-10.2) mg/dL Troponin I 22.800 H* (0.000-0.034) ng/mL Procalcitonin (0.02-0.50) ng/mL 07/11/24 07/12/24 07/12/24 Range/Units 23:12 01:47 EST 04:50 Hgb 11.3 L D (13.0-17.5) gm/dL Hct 35.7 L (39.0-53.0) % MCV 66.4 L D (80.0-100.0) fL MCH 21.0 L (25.0-35.0) pg RDW 16.9 H (11.5-15.5) % APTT 55.8 H (22.0-30.0) sec ABG pH (7.35-7.45) ABG pCO2 (35-45) mmHg ABG pO2 (83-108) mmHg ABG HCO3 (21-25) mmol/L ABG O2 Saturation (94-97) % Hemoglobin (13.0-17.5) gm/dL Sodium (137-145) mmol/L Potassium (3.5-5.1) mmol/L Chloride (98-107) mmol/L Carbon Dioxide (22-30) mmol/L BUN (9-20) mg/dL Creatinine (0.66-1.25) mg/dL Glucose (74-99) mg/dL POC Glucose (mg/dL) 113 H (70-110) mg/dL Calcium (8.4-10.2) mg/dL Troponin I (0.000-0.034) ng/mL Procalcitonin (0.02-0.50) ng/mL 07/12/24 07/12/24 07/12/24 Range/Units 04:50 05:17 05:45 Hgb 11.4 L (13.0-17.5) gm/dL Hct 36.1 L (39.0-53.0) % MCV 66.3 L (80.0-100.0) fL MCH 20.9 L (25.0-35.0) pg RDW 16.6 H (11.5-15.5) % APTT (22.0-30.0) sec ABG pH (7.35-7.45) ABG pCO2 (35-45) mmHg ABG pO2 (83-108) mmHg ABG HCO3 (21-25) mmol/L ABG O2 Saturation (94-97) % Hemoglobin (13.0-17.5) gm/dL Sodium (137-145) mmol/L Potassium 2.4 L* (3.5-5.1) mmol/L Chloride 128 H (98-107) mmol/L Carbon Dioxide 12 L (22-30) mmol/L BUN (9-20) mg/dL Creatinine (0.66-1.25) mg/dL Glucose (74-99) mg/dL POC Glucose (mg/dL) 116 H (70-110) mg/dL Calcium 4.7 L* (8.4-10.2) mg/dL Troponin I (0.000-0.034) ng/mL Procalcitonin (0.02-0.50) ng/mL 07/12/24 07/12/24 Range/Units 05:45 06:10 Hgb (13.0-17.5) gm/dL Hct (39.0-53.0) % MCV (80.0-100.0) fL MCH (25.0-35.0) pg RDW (11.5-15.5) % APTT (22.0-30.0) sec ABG pH 7.49 H (7.35-7.45) ABG pCO2 26 L (35-45) mmHg ABG pO2 163 H (83-108) mmHg ABG HCO3 20 L (21-25) mmol/L ABG O2 Saturation 99.9 H (94-97) % Hemoglobin 11.9 L (13.0-17.5) gm/dL Sodium 136 L (137-145) mmol/L Potassium (3.5-5.1) mmol/L Chloride 114 H (98-107) mmol/L Carbon Dioxide 18 L (22-30) mmol/L BUN 29 H (9-20) mg/dL Creatinine 1.47 H (0.66-1.25) mg/dL Glucose 114 H (74-99) mg/dL POC Glucose (mg/dL) (70-110) mg/dL Calcium 7.8 L (8.4-10.2) mg/dL Troponin I (0.000-0.034) ng/mL Procalcitonin (0.02-0.50) ng/mL
[2024-07-12] MEDS: ASPIRIN 81 MG PO SCH (09:33)
--- NOTE | 2024-07-12 11:08 | P.PN ---
Subjective Progress Note Date: 07/12/24 This is a 78-year-old male patient with a history of rheumatoid arthritis, hypertension, BPH. He was recently here in May for atypical chest pain and COVID-19 pneumonitis. Discharged home on May 15, 2024. Since that time he had been doing well. Pain the patient was having a 2 to 3-day history of worsening shortness of breath. He was active yesterday and cleaning out his garage and did complain of shortness of breath and some chest discomfort. He developed worsening shortness of breath throughout the night. EMS was called and the arrival the patient had collapse. He was pulseless and CPR was started taking approximately 5 minutes until return of spontaneous circulation. He was brought in and being assisted with a bag valve mask device and a pulse ox of 74 and then intubated in the emergency department. He was brought up to the intensive care unit. He is currently intubated, sedated on the mechanical ventilator at a rate of 24, tidal volume 450, FiO2 90% and a PEEP of 10. Blood gases had revealed a PaO2 of 70, pCO2 of 62 and a pH of 7.14 on 100% FiO2. He is on fentanyl at 1.5 mcg/kg/h. He is currently on a heparin drip per weight- based protocol. Norepinephrine at 13.5 mcg/min. Propofol at 30 mcg/kg/min. CT scan of the brain revealed no acute findings. CT angiogram revealed no evidence of pulmonary embolism. There is small bilateral effusions. Some patchy airspace opacity/consolidation throughout both lungs. Mild groundglass opacities. White count 19.7. Hemoglobin 14.6. Platelets 208. Sodium 138. Potassium 4.3. Bicarb 13. BUN 18. Creatinine 1.13. Glucose 313. Troponin 0.588. proBNP 2770. TSH 7.36. Viral screen is negative. The patient is seen today July 12, 2024 in follow-up in the intensive care unit. He remains intubated sedated on the mechanical ventilator. Currently in assist-control mode with a rate of 30, tidal volume 450, FiO2 40% and a PEEP of 10. Morning blood gases revealed a PaO2 of 163, pCO2 of 26 and a pH of 7.49 and 50% FiO2. The PEEP will be decreased to 5. He is currently on cefazolin. Remains on bronchodilators. He is continued on a heparin drip per weight-based protocol. Norepinephrine at 0.03 mcg/kg/min. Propofol at 35 mcg/kg/min. Fentanyl drip at 1.25 mcg/kg/h. White count 9.6. Hemoglobin 11.4. Platelets 166. Sodium 136. Potassium 3.9. Bicarb 18. BUN 29. Creatinine 1.47. Glucose 114. Continue tube feedings of vital AF at a rate of 10 with a goal of 57. Will be on hold for cardiac catheterization today Objective - Vital Signs Vital signs: Vital Signs Temp 98.7 F 07/12/24 08:00 Pulse 45 L 07/12/24 10:15 Resp 30 H 07/12/24 10:15 BP 115/58 07/12/24 10:15 Pulse Ox 98 07/12/24 10:15 FiO2 40 07/12/24 08:00 Intake & Output 07/11/24 07/12/24 07/12/24 19:59 06:59 18:59 Intake Total 435.923 Output Total 135 Balance 300.923 Weight Intake: IV 89 NS flush 9 Sodium Chloride 0.9% 1, 80 000 ml @ 20 mls/hr IV . Q24H [facility] Rx#:[id number] Intake, IV Titration 346.923 Amount Heparin Sod,Pork in 0.45% NaCl 25,000 unit In 0.45 % NaCl 1 250ml.bag @ 11. 023 UNITS/KG/HR 10 mls/hr IV .Q24H [facility] Rx#: [id number] Lactated Ringers 1,000 ml @ 999 mls/hr IV .Q1H1M [facility] Rx#:[id number] Norepinephrine 4 mg In Sodium Chloride 0.9% 250 ml @ 0.03 MCG/KG/MIN 10. 369 mls/hr IV .Q24H [facility] Rx#:[id number] Norepinephrine 8 mg In 47.164 Sodium Chloride 0.9% 250 ml @ 0.19 MCG/KG/MIN 33. 353 mls/hr IV .Q7H45M [facility] Rx#:[id number] Potassium Chloride 10 meq 200 In Water For Injection 1 100ml.bag @ 100 mls/hr IVPB Q1H [facility] Rx#: [id number] Sodium Chloride 0.9% 1, 000 ml @ 20 mls/hr IV . Q24H [facility] Rx#:[id number] ceFAZolin 2 gm In Sodium 50 Chloride 0.9% 50 ml @ 100 mls/hr IVPB Q8H [facility] Rx#: [id number] fentaNYL (PF). 1,000 mcg In Sodium Chloride 0.9% 80 ml @ 0.5 MCG/KG/HR 4. 536 mls/hr IV .Q22H3M [facility] Rx#:[id number] propofoL 1,000 mg In 49.759 Empty Bag 1 bag @ 15 MCG/ KG/MIN 8.165 mls/hr IV . [id number] [facility] Rx#:[id number] Tube Feeding Other Output: Urine 135 Other: Voiding Method Indwelling Catheter ABP, PAP, CO, CI - Last Documented Arterial Blood Pressure 105/38 - Exam GENERAL EXAM: Intubated, sedated 78-year-old male, on the mechanical ventilator, in no apparent distress. HEAD: Normocephalic. EYES: Normal reaction of pupils, equal size. NOSE: Clear with pink turbinates. THROAT: Oral endotracheal and gastric tube secured in place. No erythema or exudates. NECK: No masses, no JVD. CHEST: No chest wall deformity. LUNGS: Equal air entry with bilateral scattered rhonchi. CVS: S1 and S2 normal with no audible murmur, regular rhythm. ABDOMEN: No hepatosplenomegaly, normal bowel sounds, no guarding or rigidity. SPINE: No scoliosis or deformity SKIN: No rashes CENTRAL NERVOUS SYSTEM: Sedated, tone is normal in all 4 extremities. EXTREMITIES: There is no peripheral edema. No clubbing, no cyanosis. Peripheral pulses are intact. - Labs CBC & Chem 7: 07/12/24 05:45 07/12/24 05:45 Labs: Abnormal Lab Results - Last 24 Hours (Table) 07/11/24 07/11/24 07/11/24 Range/Units 11:03 12:15 16:40 Hgb (13.0-17.5) gm/dL Hct (39.0-53.0) % MCV (80.0-100.0) fL MCH (25.0-35.0) pg RDW (11.5-15.5) % APTT (22.0-30.0) sec ABG pH (7.35-7.45) ABG pCO2 (35-45) mmHg ABG pO2 (83-108) mmHg ABG HCO3 (21-25) mmol/L ABG O2 Saturation (94-97) % Hemoglobin (13.0-17.5) gm/dL Sodium (137-145) mmol/L Potassium (3.5-5.1) mmol/L Chloride (98-107) mmol/L Carbon Dioxide (22-30) mmol/L BUN (9-20) mg/dL Creatinine (0.66-1.25) mg/dL Glucose (74-99) mg/dL POC Glucose (mg/dL) (70-110) mg/dL Calcium (8.4-10.2) mg/dL Troponin I 14.900 H* 21.100 H* (0.000-0.034) ng/mL Procalcitonin 2.82 H (0.02-0.50) ng/mL 07/11/24 07/11/24 07/11/24 Range/Units 18:30 18:33 20:55 Hgb (13.0-17.5) gm/dL Hct (39.0-53.0) % MCV (80.0-100.0) fL MCH (25.0-35.0) pg RDW (11.5-15.5) % APTT 39.7 H (22.0-30.0) sec ABG pH (7.35-7.45) ABG pCO2 (35-45) mmHg ABG pO2 (83-108) mmHg ABG HCO3 (21-25) mmol/L ABG O2 Saturation (94-97) % Hemoglobin (13.0-17.5) gm/dL Sodium (137-145) mmol/L Potassium (3.5-5.1) mmol/L Chloride (98-107) mmol/L Carbon Dioxide (22-30) mmol/L BUN (9-20) mg/dL Creatinine (0.66-1.25) mg/dL Glucose (74-99) mg/dL POC Glucose (mg/dL) 128 H (70-110) mg/dL Calcium (8.4-10.2) mg/dL Troponin I 22.800 H* (0.000-0.034) ng/mL Procalcitonin (0.02-0.50) ng/mL 07/11/24 07/11/24 07/12/24 Range/Units 22:57 23:12 01:47 EST Hgb (13.0-17.5) gm/dL Hct (39.0-53.0) % MCV (80.0-100.0) fL MCH (25.0-35.0) pg RDW (11.5-15.5) % APTT 55.8 H (22.0-30.0) sec ABG pH (7.35-7.45) ABG pCO2 (35-45) mmHg ABG pO2 (83-108) mmHg ABG HCO3 (21-25) mmol/L ABG O2 Saturation (94-97) % Hemoglobin (13.0-17.5) gm/dL Sodium (137-145) mmol/L Potassium (3.5-5.1) mmol/L Chloride 114 H (98-107) mmol/L Carbon Dioxide 17 L (22-30) mmol/L BUN 27 H (9-20) mg/dL Creatinine 1.35 H (0.66-1.25) mg/dL Glucose 126 H (74-99) mg/dL POC Glucose (mg/dL) 113 H (70-110) mg/dL Calcium 7.9 L (8.4-10.2) mg/dL Troponin I (0.000-0.034) ng/mL Procalcitonin (0.02-0.50) ng/mL 07/12/24 07/12/24 07/12/24 Range/Units 04:50 04:50 05:17 Hgb 11.3 L D (13.0-17.5) gm/dL Hct 35.7 L (39.0-53.0) % MCV 66.4 L D (80.0-100.0) fL MCH 21.0 L (25.0-35.0) pg RDW 16.9 H (11.5-15.5) % APTT (22.0-30.0) sec ABG pH (7.35-7.45) ABG pCO2 (35-45) mmHg ABG pO2 (83-108) mmHg ABG HCO3 (21-25) mmol/L ABG O2 Saturation (94-97) % Hemoglobin (13.0-17.5) gm/dL Sodium (137-145) mmol/L Potassium 2.4 L* (3.5-5.1) mmol/L Chloride 128 H (98-107) mmol/L Carbon Dioxide 12 L (22-30) mmol/L BUN (9-20) mg/dL Creatinine (0.66-1.25) mg/dL Glucose (74-99) mg/dL POC Glucose (mg/dL) 116 H (70-110) mg/dL Calcium 4.7 L* (8.4-10.2) mg/dL Troponin I (0.000-0.034) ng/mL Procalcitonin (0.02-0.50) ng/mL 07/12/24 07/12/24 07/12/24 Range/Units 05:45 05:45 06:10 Hgb 11.4 L (13.0-17.5) gm/dL Hct 36.1 L (39.0-53.0) % MCV 66.3 L (80.0-100.0) fL MCH 20.9 L (25.0-35.0) pg RDW 16.6 H (11.5-15.5) % APTT (22.0-30.0) sec ABG pH 7.49 H (7.35-7.45) ABG pCO2 26 L (35-45) mmHg ABG pO2 163 H (83-108) mmHg ABG HCO3 20 L (21-25) mmol/L ABG O2 Saturation 99.9 H (94-97) % Hemoglobin 11.9 L (13.0-17.5) gm/dL Sodium 136 L (137-145) mmol/L Potassium (3.5-5.1) mmol/L Chloride 114 H (98-107) mmol/L Carbon Dioxide 18 L (22-30) mmol/L BUN 29 H (9-20) mg/dL Creatinine 1.47 H (0.66-1.25) mg/dL Glucose 114 H (74-99) mg/dL POC Glucose (mg/dL) (70-110) mg/dL Calcium 7.8 L (8.4-10.2) mg/dL Troponin I (0.000-0.034) ng/mL Procalcitonin (0.02-0.50) ng/mL Assessment and Plan Assessment: Outside the hospital cardiac arrest requiring 5 minutes of CPR prior to return of spontaneous circulation Acute hypoxemic respiratory failure secondary to above requiring intubation and mechanical ventilatory support Recent discharge in May 2024 for atypical chest pain and COVID-19 infection/pneumonitis Rheumatoid arthritis Hypertension Benign prostatic hyperplasia Plan: The patient was seen and evaluated Imaging, labs, ABGs and medications reviewed Decrease FiO2 to 40% Decrease the PEEP to 5 Titrate down the norepinephrine as tolerated Titrate down the fentanyl drip as tolerated Continue propofol for sedation Continue heparin drip per weight-based protocol Plan is for cardiac catheterization today Procalcitonin is elevated Add Ancef Blood and sputum cultures pending Continue tube feedings for nutritional support currently vital AF 1.2 at 10 with a goal of 57 We will continue to follow and make further recommendations based on his clinical status I have personally seen and examined the patient, performed the documentation and the assessment and plan as written. Number of minutes spent on the visit: 15 Dictation was produced using [employer] dictation software. Please excuse any grammatical, word or spelling errors.
[2024-07-12] MEDS: IV FLUID CONTINUATION 900 ML IV ONE (11:11)
[2024-07-12] MEDS: LIDOCAINE 1% INJ 10MG/ML (20 ML MDV) SQ ONE (11:23)
--- NOTE | 2024-07-12 11:36 | P.PN ---
Subjective Progress Note Date: 07/12/24 Patient seen and examined today. Patient's Levophed requirement has come down to 0.03 from 0.19, propofol remains at 35, tube feeds on hold for pending catheterization. General: intubated, sedated HEENT: normocephalic, atraumatic, no tracheal deviation Respiratory: symmetric chest rise, no cyanosis, ventilator dependent CVS: perfusing all extremities, no distal gangrene, trace pitting edema GI: soft, ND : no SPT, no CVAT, heard is present Neuro: sedated Hospital course: Patient is a 78-year-old male with PMH of rheumatoid arthritis, hypertension and BPH was brought to the emergency department via EMS for cardiopulmonary arrest. His initial laboratory evaluation shows WBC of 19.7, hemoglobin 14.6, MCV of 74.8, platelet count 2 8, sodium 138, potassium 4.3, chloride 117, bicarb 13, BUN 18, creatinine 1.8. His cardiac troponin has been trending upward from 0.588--->14.9. Patient was recently seen at the hospital for the complaint of chest pain. Patient was diagnosed with type II ID slightly with elevated troponins likely secondary to COVID-19 pneumonitis. Echocardiogram showed LVEF of 55% and moderate pulmonary hypertension. Viral panel negative. Chest x-ray interpreted independently shows diffuse patchy infiltrate with groundglass opacities and bilateral pleural effusion. Brain CT shows no acute intracranial process. Chest CTA is negative for pulmonary embolism and patchy opacities throughout both lungs with small bilateral pleural effusions. EKG interpreted independently shows sinus bradycardia with a regular branch block. T wave inversions in anteroseptal and lateral leads. Assessment/Plan: Patient is a 78-year-old male with PMH of rheumatoid arthritis, hypertension and BPH was brought to the emergency department via EMS for cardiopulmonary arrest who is currently intubated and admitted to the medical ICU. #Out of the hospital cardiopulmonary arrest #Elevated troponin, secondary to NSTEMI #Cardiogenic Shock #Recent history of atypical chest pain and COVID-19 pneumonitis Troponin level trending upward from 0.588--->14.9, continue to trend troponin Cardiology consulted, pending [facility] Echocardiogram as above Heparin drip Aspirin 81 mg p.o. daily, statin 40 mg p.o. at bedtime Morphine 2 mg IV every 2 hour as needed for chest pain Continue cardiac monitoring Lipid panel done on 05/14/2024 TSH 7.63, free T4 0.8 Pulmonology consulted; note reviewed Sedation holiday and spontaneous breathing trials as per ICU protocol #Anion gap metabolic acidosis secondary to lactic acid Sodium 138, chloride 107, bicarb 13, anion gap 18 Lactic acid 3.2 #Euthyroid sick syndrome secondary above TSH 7.63, free T4 - 0.8 #Hypomagnesemia Mag 2.6 Continue monitor magnesium level Chronic conditions: BPH: Hold Flomax Hypertension: Hold nifedipine DVT prophylaxis: Heparin drip The patient is admitted with an anticipated more than 2 midnight stay for eval uation of suspected cardiopulmonary arrest CODE STATUS: DNR/DNI Discussed with: Per note Anticipated discharge place: Pending clinical course Objective - Vital Signs Vital signs: Vital Signs Temp 98.7 F 07/12/24 08:00 Pulse 45 L 07/12/24 10:15 Resp 30 H 07/12/24 10:15 BP 115/58 07/12/24 10:15 Pulse Ox 98 07/12/24 10:15 FiO2 40 07/12/24 08:00 Intake & Output 07/11/24 07/12/24 07/12/24 19:59 06:59 18:59 Intake Total 435.923 Output Total 135 Balance 300.923 Weight Intake: IV 89 NS flush 9 Sodium Chloride 0.9% 1, 80 000 ml @ 20 mls/hr IV . Q24H [facility] Rx#:[id number] Intake, IV Titration 346.923 Amount Heparin Sod,Pork in 0.45% NaCl 25,000 unit In 0.45 % NaCl 1 250ml.bag @ 11. 023 UNITS/KG/HR 10 mls/hr IV .Q24H [facility] Rx#: [id number] Lactated Ringers 1,000 ml @ 999 mls/hr IV .Q1H1M [facility] Rx#:[id number] Norepinephrine 4 mg In Sodium Chloride 0.9% 250 ml @ 0.03 MCG/KG/MIN 10. 369 mls/hr IV .Q24H [facility] Rx#:[id number] Norepinephrine 8 mg In 47.164 Sodium Chloride 0.9% 250 ml @ 0.19 MCG/KG/MIN 33. 353 mls/hr IV .Q7H45M [facility] Rx#:[id number] Potassium Chloride 10 meq 200 In Water For Injection 1 100ml.bag @ 100 mls/hr IVPB Q1H [facility] Rx#: [id number] Sodium Chloride 0.9% 1, 000 ml @ 20 mls/hr IV . Q24H [facility] Rx#:[id number] ceFAZolin 2 gm In Sodium 50 Chloride 0.9% 50 ml @ 100 mls/hr IVPB Q8H [facility] Rx#: [id number] fentaNYL (PF). 1,000 mcg In Sodium Chloride 0.9% 80 ml @ 0.5 MCG/KG/HR 4. 536 mls/hr IV .Q22H3M [facility] Rx#:[id number] propofoL 1,000 mg In 49.759 Empty Bag 1 bag @ 15 MCG/ KG/MIN 8.165 mls/hr IV . [id number] [facility] Rx#:[id number] Tube Feeding Other Output: Urine 135 Other: Voiding Method Indwelling Catheter ABP, PAP, CO, CI - Last Documented Arterial Blood Pressure 105/38 - Labs CBC & Chem 7: 07/12/24 05:45 07/12/24 05:45 Labs: Abnormal Lab Results - Last 24 Hours (Table) 07/11/24 07/11/24 07/11/24 Range/Units 11:03 12:15 16:40 Hgb (13.0-17.5) gm/dL Hct (39.0-53.0) % MCV (80.0-100.0) fL MCH (25.0-35.0) pg RDW (11.5-15.5) % APTT (22.0-30.0) sec ABG pH (7.35-7.45) ABG pCO2 (35-45) mmHg ABG pO2 (83-108) mmHg ABG HCO3 (21-25) mmol/L ABG O2 Saturation (94-97) % Hemoglobin (13.0-17.5) gm/dL Sodium (137-145) mmol/L Potassium (3.5-5.1) mmol/L Chloride (98-107) mmol/L Carbon Dioxide (22-30) mmol/L BUN (9-20) mg/dL Creatinine (0.66-1.25) mg/dL Glucose (74-99) mg/dL POC Glucose (mg/dL) (70-110) mg/dL Calcium (8.4-10.2) mg/dL Troponin I 14.900 H* 21.100 H* (0.000-0.034) ng/mL Procalcitonin 2.82 H (0.02-0.50) ng/mL 07/11/24 07/11/24 07/11/24 Range/Units 18:30 18:33 20:55 Hgb (13.0-17.5) gm/dL Hct (39.0-53.0) % MCV (80.0-100.0) fL MCH (25.0-35.0) pg RDW (11.5-15.5) % APTT 39.7 H (22.0-30.0) sec ABG pH (7.35-7.45) ABG pCO2 (35-45) mmHg ABG pO2 (83-108) mmHg ABG HCO3 (21-25) mmol/L ABG O2 Saturation (94-97) % Hemoglobin (13.0-17.5) gm/dL Sodium (137-145) mmol/L Potassium (3.5-5.1) mmol/L Chloride (98-107) mmol/L Carbon Dioxide (22-30) mmol/L BUN (9-20) mg/dL Creatinine (0.66-1.25) mg/dL Glucose (74-99) mg/dL POC Glucose (mg/dL) 128 H (70-110) mg/dL Calcium (8.4-10.2) mg/dL Troponin I 22.800 H* (0.000-0.034) ng/mL Procalcitonin (0.02-0.50) ng/mL 07/11/24 07/11/24 07/12/24 Range/Units 22:57 23:12 01:47 EST Hgb (13.0-17.5) gm/dL Hct (39.0-53.0) % MCV (80.0-100.0) fL MCH (25.0-35.0) pg RDW (11.5-15.5) % APTT 55.8 H (22.0-30.0) sec ABG pH (7.35-7.45) ABG pCO2 (35-45) mmHg ABG pO2 (83-108) mmHg ABG HCO3 (21-25) mmol/L ABG O2 Saturation (94-97) % Hemoglobin (13.0-17.5) gm/dL Sodium (137-145) mmol/L Potassium (3.5-5.1) mmol/L Chloride 114 H (98-107) mmol/L Carbon Dioxide 17 L (22-30) mmol/L BUN 27 H (9-20) mg/dL Creatinine 1.35 H (0.66-1.25) mg/dL Glucose 126 H (74-99) mg/dL POC Glucose (mg/dL) 113 H (70-110) mg/dL Calcium 7.9 L (8.4-10.2) mg/dL Troponin I (0.000-0.034) ng/mL Procalcitonin (0.02-0.50) ng/mL 07/12/24 07/12/24 07/12/24 Range/Units 04:50 04:50 05:17 Hgb 11.3 L D (13.0-17.5) gm/dL Hct 35.7 L (39.0-53.0) % MCV 66.4 L D (80.0-100.0) fL MCH 21.0 L (25.0-35.0) pg RDW 16.9 H (11.5-15.5) % APTT (22.0-30.0) sec ABG pH (7.35-7.45) ABG pCO2 (35-45) mmHg ABG pO2 (83-108) mmHg ABG HCO3 (21-25) mmol/L ABG O2 Saturation (94-97) % Hemoglobin (13.0-17.5) gm/dL Sodium (137-145) mmol/L Potassium 2.4 L* (3.5-5.1) mmol/L Chloride 128 H (98-107) mmol/L Carbon Dioxide 12 L (22-30) mmol/L BUN (9-20) mg/dL Creatinine (0.66-1.25) mg/dL Glucose (74-99) mg/dL POC Glucose (mg/dL) 116 H (70-110) mg/dL Calcium 4.7 L* (8.4-10.2) mg/dL Troponin I (0.000-0.034) ng/mL Procalcitonin (0.02-0.50) ng/mL 07/12/24 07/12/24 07/12/24 Range/Units 05:45 05:45 06:10 Hgb 11.4 L (13.0-17.5) gm/dL Hct 36.1 L (39.0-53.0) % MCV 66.3 L (80.0-100.0) fL MCH 20.9 L (25.0-35.0) pg RDW 16.6 H (11.5-15.5) % APTT (22.0-30.0) sec ABG pH 7.49 H (7.35-7.45) ABG pCO2 26 L (35-45) mmHg ABG pO2 163 H (83-108) mmHg ABG HCO3 20 L (21-25) mmol/L ABG O2 Saturation 99.9 H (94-97) % Hemoglobin 11.9 L (13.0-17.5) gm/dL Sodium 136 L (137-145) mmol/L Potassium (3.5-5.1) mmol/L Chloride 114 H (98-107) mmol/L Carbon Dioxide 18 L (22-30) mmol/L BUN 29 H (9-20) mg/dL Creatinine 1.47 H (0.66-1.25) mg/dL Glucose 114 H (74-99) mg/dL POC Glucose (mg/dL) (70-110) mg/dL Calcium 7.8 L (8.4-10.2) mg/dL Troponin I (0.000-0.034) ng/mL Procalcitonin (0.02-0.50) ng/mL
[2024-07-12] MEDS: HEPARIN SODIUM 1,000 UN/ML (10ML VL) IVP ONE ×2 (11:49→12:04)
[2024-07-12] MEDS ORDERED: RX INFO: IV CONTRAST WAS GIVEN 1 EACH MISC MISCELLANE PRN (12:03)
--- NOTE | 2024-07-12 12:08 | P.PCN ---
Date of Procedure: 07/12/24 Operative Findings: CARDIAC CATHETERIZATION PERFORMING PHYSICIAN: Jack Abrams MD, RPVI PROCEDURE PERFORMED: 1. Selective right and left coronary angiogram and left heart catheterization 2. Successful placement of Impella CP in the LV 3. Ultrasound-guided access of the right common femoral artery and right common femoral artery angiogram INDICATION: Cardiac arrest in this 78-year-old gentleman who ruled in for acute coronary event. The echo showed cardiomyopathy with wall motion abnormalities concerning for severe underlying coronary artery disease. The cardiac enzymes came in to be abnormal as well. He is in shock and currently he is on vasopressors. COMPLICATION: None APPROACH: Right common femoral artery LEVEL OF SEDATION: Moderate with sedation in length of 40 minutes PROCEDURE DESCRIPTION: After obtaining an informed consent, the patient was brought to cardiac labour market economist. Local anesthesia was performed using lidocaine subcutaneously. The right common femoral artery was cannulated using Seldinger technique, under ultrasound guidance, the guidewire passed easily, following that we advanced a 6 Azerbaijani sheath dilator assembly, the wire and dilator were removed and sheath was flushed. Selective right and left coronary angiogram using a 6-Azerbaijani JR4 and JL catheters. Following that we did left heart catheterization using 6-Azerbaijani pigtail catheter. After that we decided to pursue with putting an Impella CP in the LV. I did selective right common femoral artery angiogram to assure that the sheath was in the right position. Subsequently I did place 2 Perclose at 10:00 and 2:00. Subsequently I did put an 8 Azerbaijani sheath over a 035 wire. Subsequently I exchanged my 035 wire into a stiff 035 wire. And then I did exchange my 8 Azerbaijani sheath into 14 Azerbaijani sheath using the 035 stiff wire and using 12 Azerbaijani dilator. Subsequently the 14 Azerbaijani sheath was advanced under fluoroscopy guidance. And then it was flushed. Anticoagulation was initiated using heparin. Subsequently crossed the aortic valve using 035 wire with a pigtail catheter. Then I did exchange my 035 wire into a 018 wire using the pigtail catheter. Then the Impella CP was advanced over the 018 wire under fluoroscopy guidance to the LV and subsequently was turned on and making sure no ectopy was noted and no suction around was noted. The procedure was completed there was no complication. SELECTIVE CORONARY ANGIOGRAM: The right coronary artery: Large-caliber vessel and a dominant vessel with subtotally/chronically occluded RCA in the midportion Left main: Calcified with mild disease on The left circumflex: Large-caliber vessel calcified vessel with critical disease involving the first and second obtuse marginal branch The left anterior descending artery: Large-caliber vessel calcified vessel with severe disease involving the proximal and mid LAD with a diffuse nature of the disease as well. HEMODYNAMICS: The LVEDP was 34 mmHg with no gradient was identified across aortic valve CONCLUSION: 1. Extremely calcified right and left coronary system with critical triple- vessel coronary artery disease 2. Severely elevated left-sided filling pressure 3. Successful placement of Impella CP in the LV. POSTPROCEDURE MANAGEMENT: Consider medical treatment at this point Consider weaning the patient from norepinephrine Consider surgical consultation Further recommendation to follow
[2024-07-12] MEDS: IOPAMIDOL-370 100ML BTL INJ ONE (12:30)
[2024-07-12 12:46] LABS: Glucose,Whole Blood 101 mg/dL (70-110)
--- NOTE | 2024-07-12 13:05 | XR ---
EXAMINATION TYPE: XR chest 1V portable DATE OF EXAM: 07/12/2024 12:56 PM COMPARISON: Same day CLINICAL INDICATION: Male, 78 years old with history of LVAD placement; [facility] TECHNIQUE: XR chest 1V portable Frontal view of the chest. FINDINGS: Lungs/Pleura: There is no evidence of pleural effusion, focal consolidation, or pneumothorax. Pulmonary vascularity: Unremarkable. Heart/mediastinum: Cardiomediastinal silhouette is unremarkable. Musculoskeletal: No acute osseous pathology. Other findings: None Lines/Tubes: Endotracheal tube with distal tip 25cm above the santino. Nasogastric tube with its distal tip and side-port projecting under the diaphragm. Left central venous catheter with distal tip at the superior vena cava. IMPRESSION: Stable exam In appropriate position. [facility], , 07/12/2024 1:03 PM
[2024-07-12 13:10] LABS: Anisocytosis Slight; Basophils % (A) 0 %; Eosinophils # (A) 0.1 k/uL (0-0.7); Eosinophils % (A) 1 %; HCT 36.3 % (39.0-53.0); HGB 11.4 gm/dL (13.0-17.5); Hypochromasia Slight; Lymphocytes # (A) 2.1 k/uL (1.0-4.8); Lymphocytes % (A) 26 %; MCH 21.1 pg (25.0-35.0); MCHC 31.5 g/dL (31.0-37.0); MCV 66.9 fL (80.0-100.0); Mean Platelet Volume 8.4; Microcytosis Marked; Monocytes # (A) 0.6 k/uL (0-1.0); Monocytes % (A) 7 %; Neutrophils # (A) 5.1 k/uL (1.3-7.7); Neutrophils % (A) 64 %; Platelet Count 154 k/uL (150-450); RBC 5.42 m/uL (4.30-5.90); RDW 16.7 % (11.5-15.5)
[2024-07-12] MEDS: SODIUM CHLORIDE 0.9% 1,000 ML IV SCH (13:21)
[2024-07-12 13:38] LABS: African American GFR (CKD) 63 (>60 ml/min/1.73 sqM); Anion Gap 3 mmol/L; Blood Urea Nitrogen 28 mg/dL (9-20); Calcium 7.9 mg/dL (8.4-10.2); Carbon Dioxide 18 mmol/L (22-30); Chloride 116 mmol/L (98-107); Glucose 93 mg/dL (74-99); Magnesium 2.2 mg/dL (1.6-2.3); Non-African American GFR(CKD) 55 (>60 ml/min/1.73 sqM); Sodium 137 mmol/L (137-145)
[2024-07-12 13:46] LABS: INR 1.1 (<1.2); Prothrombin Time 11.6 sec (10.0-12.5)
[2024-07-12 13:52] LABS: Partial Thromboplastin Time >200.0 sec (22.0-30.0)
[2024-07-12] MEDS: SODIUM BICARB (1 MEQ/ML) 12.5 ML in DEXTROSE 5% IN WATER 500 ML IV SCH (14:02)
[2024-07-12 14:11] LABS: Fibrinogen 406 mg/dL (200-500)
--- NOTE | 2024-07-12 15:13 | CA ---
Transthoracic Echo Report Name: Mookie He Age: 78 Gender: M : 1945 Exam Date: 07/11/2024 12:27 Exam Location: [facility] Ht (in): 75 Wt (lb): 200 Ordering Physician: Jack Abrams MD ([id number]) Attending/Referring Phys: Supervisor Cytology Fabiola Chery RDCS Procedure CPT: Indications: cardiomyopathy Cardiac Hx: Technical Quality: Poor, Technically difficult study Contrast 1: Definity Total Dose (mL): 2 Contrast 2: Total Dose (mL): MEASUREMENTS (Male / Female) Normal Values 2D ECHO LV Diastolic Diameter PLAX 4.8 cm 4.2 - 5.9 / 3.9 - 5.3 cm LV Systolic Diameter PLAX 3.7 cm IVS Diastolic Thickness 1.3 cm 0.6 - 1.0 / 0.6 - 0.9 cm LVPW Diastolic Thickness 1.3 cm 0.6 - 1.0 / 0.6 - 0.9 cm LV Relative Wall Thickness 0.5 RV Internal Dim ED PLAX 2.4 cm LA Systolic Diameter LX 4.0 cm 3.0 - 4.0 / 2.7 - 3.8 cm M-MODE Aortic Root Diameter MM 2.4 cm LA Systolic Diameter MM 4.1 cm LA Ao Ratio MM 1.7 DOPPLER AV Peak Velocity 129.1 cm/s AV Peak Gradient 6.7 mmHg AV Mean Velocity 91.0 cm/s AV Mean Gradient 3.9 mmHg AV Velocity Time Integral 20.4 cm AI Peak Velocity 190.9 cm/s AI Peak Gradient 14.6 mmHg AI Pressure Half Time 1017.9 ms LVOT Peak Velocity 61.8 cm/s LVOT Peak Gradient 1.5 mmHg LVOT Velocity Time Integral 11.8 cm MV Area PHT 2.3 cm??? Mitral E Point Velocity 41.7 cm/s Mitral A Point Velocity 33.6 cm/s Mitral E to A Ratio 1.2 MV Deceleration Time 335.3 ms TR Peak Velocity 224.2 cm/s TR Peak Gradient 20.1 mmHg FINDINGS Left Ventricle Left ventricular ejection fraction is estimated at 25-30 %. Mildly increased septal wall thickness. Hypokinetic septum. [place] hypokinetic. Left ventricular cavity size normal. Right Ventricle Moderate right ventricular dilatation. Right ventricular systolic pressure within normal limits. Right Atrium Normal right atrial size. Left Atrium Moderate left atrial dilatation. Mitral Valve Structurally normal mitral valve. Mild mitral regurgitation. No mitral stenosis. Aortic Valve Trileaflet aortic valve. No aortic stenosis. Mild aortic regurgitation. Diffuse thickening (sclerosis) of the aortic valve cusps without reduced excursion. Tricuspid Valve Structurally normal tricuspid valve. No tricuspid stenosis. Mild tricuspid regurgitation. Pulmonic Valve Structurally normal pulmonic valve. Trace pulmonic regurgitation. No pulmonic stenosis. Pericardium Left pleural effusion. No pericardial effusion. Aorta Normal size aortic root and proximal ascending aorta. CONCLUSIONS Severe cardiomyopathy with wall motion abnormalities including apical hypokinesia. The ejection fraction is 25 to 30% Previewed by: Dr. Jack Abrams MD (Electronically Signed) Final Date: 12 July 2024 15:12
[2024-07-12 17:03] LABS: Partial Thromboplastin Time 42.8 sec (22.0-30.0)
[2024-07-12 18:06] LABS: Glucose,Whole Blood 91 mg/dL (70-110)
[2024-07-12] MEDS: IPRATROPIUM-ALBUTEROL 3 ML NEB INHALATION PRN (19:48)
[2024-07-13 00:27] LABS: Glucose,Whole Blood 102 mg/dL (70-110)
[2024-07-13 00:43] LABS: Partial Thromboplastin Time 48.8 sec (22.0-30.0)
[2024-07-13 05:20] LABS: Partial Thromboplastin Time 37.9 sec (22.0-30.0); Prothrombin Time 10.7 sec (10.0-12.5)
[2024-07-13 05:31] LABS: Anisocytosis Slight; Basophils % (A) 0 %; Eosinophils # (A) 0.1 k/uL (0-0.7); Eosinophils % (A) 1 %; HCT 33.1 % (39.0-53.0); HGB 10.6 gm/dL (13.0-17.5); Hypochromasia Slight; Lymphocytes # (A) 1.5 k/uL (1.0-4.8); Lymphocytes % (A) 22 %; MCH 21.1 pg (25.0-35.0); MCV 65.8 fL (80.0-100.0); Mean Platelet Volume 7.3; Microcytosis Marked; Monocytes # (A) 0.5 k/uL (0-1.0); Monocytes % (A) 7 %; Neutrophils # (A) 4.8 k/uL (1.3-7.7); Neutrophils % (A) 68 %; Platelet Count 126 k/uL (150-450); RBC 5.03 m/uL (4.30-5.90); RDW 16.5 % (11.5-15.5); WBC 7.1 k/uL (3.8-10.6)
[2024-07-13 05:46] LABS: African American GFR (CKD) 76 (>60 ml/min/1.73 sqM); Anion Gap 2 mmol/L; Blood Urea Nitrogen 27 mg/dL (9-20); Calcium 7.8 mg/dL (8.4-10.2); Carbon Dioxide 18 mmol/L (22-30); Chloride 115 mmol/L (98-107); Glucose 99 mg/dL (74-99); LDH 984 U/L (120-246); Magnesium 2.1 mg/dL (1.6-2.3); Non-African American GFR(CKD) 66 (>60 ml/min/1.73 sqM); Potassium 3.8 mmol/L (3.5-5.1); Sodium 135 mmol/L (137-145)
[2024-07-13] MEDS ORDERED: Potassium Replacement Protocol 1 EACH MISC MISCELLANE PRN (05:48)
[2024-07-13 06:07] LABS: ABG Base Excess -3.6 mmol/L; ABG HCO3 19 mmol/L (21-25); ABG Oxygen Saturation 97.9 % (94-97); ABG PCO2 27 mmHg (35-45); ABG PH 7.46 (7.35-7.45); ABG PO2 97 mmHg (83-108); ABG TCO2 20 mmol/L (19-24); Allen Test Performed? Yes
[2024-07-13 06:07] LABS: Glucose,Whole Blood 125 mg/dL (70-110)
[2024-07-13] MEDS: POTASSIUM BICARBONATE/CIT AC 20 MEQ TABLET.EFF NG-TUBE SCH (06:21)
--- NOTE | 2024-07-13 07:27 | XR ---
EXAMINATION TYPE: XR chest 1V portable DATE OF EXAM: 07/13/2024 4:58 AM COMPARISON: 07/12/2024 CLINICAL INDICATION: Male, 78 years old with history of LVAD placement. Perform with HOB at 0 degrees ., TECHNIQUE: XR chest 1V portable view(s) obtained. FINDINGS: The heart size is normal. The pulmonary vasculature is upper limits for normal. Mild infiltrate is at the left base. Correlate for atelectasis. Endotracheal tube tip is 2.9 cm above the santino. Nasogastric tube transverses the thorax. Left-sided catheter tip is in superior vena cava region. Aortic balloon pump appears to be normal in position IMPRESSION: 1. Minimal left lower lobe infiltrate. 2. Lines and catheters discussed above. [facility], , 07/13/2024 7:25 AM
[2024-07-13 12:43] LABS: Glucose,Whole Blood 116 mg/dL (70-110)
[2024-07-13 13:27] LABS: Anisocytosis Slight; HCT 33.2 % (39.0-53.0); HGB 10.8 gm/dL (13.0-17.5); Hypochromasia Slight; MCH 21.6 pg (25.0-35.0); MCHC 32.4 g/dL (31.0-37.0); MCV 66.8 fL (80.0-100.0); Mean Platelet Volume 7.4; Microcytosis Marked; Platelet Count 123 k/uL (150-450); RBC 4.98 m/uL (4.30-5.90); RDW 16.4 % (11.5-15.5); WBC 7.9 k/uL (3.8-10.6)
--- NOTE | 2024-07-13 13:44 | P.PN ---
Subjective Progress Note Date: 07/13/24 This is a 78-year-old male patient with a history of rheumatoid arthritis, hypertension, BPH. He was recently here in May for atypical chest pain and COVID-19 pneumonitis. Discharged home on May 15, 2024. Since that time he had been doing well. Pain the patient was having a 2 to 3-day history of worsening shortness of breath. He was active yesterday and cleaning out his garage and did complain of shortness of breath and some chest discomfort. He developed worsening shortness of breath throughout the night. EMS was called and the arrival the patient had collapse. He was pulseless and CPR was started taking approximately 5 minutes until return of spontaneous circulation. He was brought in and being assisted with a bag valve mask device and a pulse ox of 74 and then intubated in the emergency department. He was brought up to the intensive care unit. He is currently intubated, sedated on the mechanical ventilator at a rate of 24, tidal volume 450, FiO2 90% and a PEEP of 10. Blood gases had revealed a PaO2 of 70, pCO2 of 62 and a pH of 7.14 on 100% FiO2. He is on fentanyl at 1.5 mcg/kg/h. He is currently on a heparin drip per weight- based protocol. Norepinephrine at 13.5 mcg/min. Propofol at 30 mcg/kg/min. CT scan of the brain revealed no acute findings. CT angiogram revealed no evidence of pulmonary embolism. There is small bilateral effusions. Some patchy airspace opacity/consolidation throughout both lungs. Mild groundglass opacities. White count 19.7. Hemoglobin 14.6. Platelets 208. Sodium 138. Potassium 4.3. Bicarb 13. BUN 18. Creatinine 1.13. Glucose 313. Troponin 0.588. proBNP 2770. TSH 7.36. Viral screen is negative. The patient is seen today July 12, 2024 in follow-up in the intensive care unit. He remains intubated sedated on the mechanical ventilator. Currently in assist-control mode with a rate of 30, tidal volume 450, FiO2 40% and a PEEP of 10. Morning blood gases revealed a PaO2 of 163, pCO2 of 26 and a pH of 7.49 and 50% FiO2. The PEEP will be decreased to 5. He is currently on cefazolin. Remains on bronchodilators. He is continued on a heparin drip per weight-based protocol. Norepinephrine at 0.03 mcg/kg/min. Propofol at 35 mcg/kg/min. Fentanyl drip at 1.25 mcg/kg/h. White count 9.6. Hemoglobin 11.4. Platelets 166. Sodium 136. Potassium 3.9. Bicarb 18. BUN 29. Creatinine 1.47. Glucose 114. Continue tube feedings of vital AF at a rate of 10 with a goal of 57. Will be on hold for cardiac catheterization today 07/13/2024, the patient is being seen for a follow-up. The patient remains intubated on the mechanical ventilator. He requires mechanical support for his cardiogenic shock postcardiac arrest and the patient is an Impella with a P7 support and a 3.1 L/min of augmentation. The patient remains on sedatives and the patient is currently on propofol the patient is 0.7. On the mechanical ventilator at a rate of 30, tidal volume of 450, FiO2 40% with PEEP of 5. Blood gas showed pH of 7.46 with a pCO2 of 27 and pO2 of 97. Chest x-ray shows cardiomegaly without any acute abnormalities. Orotracheal tubes are in good perfusion. The patient is currently on KVO IV fluids. The patient is on no pressors and the patient was taken off norepinephrine and is producing adequate amount of urine output in the order of 50 cc an hour. He remains on IV heparin. Creatinine is improved and the patient's creatinine peaked at 1.47 and currently is down to 1.08. He has a left subclavian triple-lumen catheter in place. Materials Handling Coordinator on the case and the patient underwent a cardiac catheterization on 07/12/2024 and the patient was found to have extremely calcified right and left coronary system with evidence of triple-vessel coronary artery disease and severely elevated left ventricular end-diastolic pressure. The white cell count at 7.9 with a hemoglobin 10.8 and a platelet count of 123. Sodium levels at 135, bicarbonate 18, BUN 27 with a creatinine of 1.08. LDH level is at 984. The echocardiogram was completed and the patient was found to have severe impairment of the LV function with an ejection fraction of 25 to 30%. There is also severe cardiomyopathy with wall motion abnormalities involving the apical area that was quite hypokinetic. The patient remains on aspirin. The patient remains on statins and the patient is currently on Lipitor 40 mg p.o. daily. Remains on IV heparin. He is also on vital AF for enteral feeding and nutritional support. Materials Handling Coordinator on the case. Cardiothoracic surgery was also involved in his care. The patient was deemed a high surgical risk for coronary intervention and bypass. Objective - Vital Signs Vital signs: Vital Signs Temp 97.7 F 07/13/24 04:00 Pulse 53 L 07/13/24 07:00 Resp 30 H 07/13/24 07:00 BP 108/69 07/13/24 05:00 Pulse Ox 97 07/13/24 07:00 FiO2 40 07/13/24 04:00 Intake & Output 07/12/24 07/13/24 07/13/24 18:59 06:59 18:59 Intake Total 1024.633 1277.765 61.4 Output Total 400 455 70 Balance 1040.075 894.765 -8.6 Weight 107.8 kg Intake: IV 157 503.5 41.4 0.9 KVO @ 20 220 20 Sodium Bicarb (1 Meq/ml) 164.5 15.4 12.5 ml In Dextrose 5% in Water 500 ml @ Per Protocol IV DIRECTED [facility] Rx#:[id number] Sodium Chloride 0.9% 1, 80 000 ml @ 20 mls/hr IV . Q24H [facility] Rx#:[id number] a line x 2 27 69 6 ceFAZolin 2 gm In Sodium 50 Chloride 0.9% 50 ml @ 100 mls/hr IVPB Q8H [facility] Rx#: [id number] Intake, IV Titration 1263.075 576.265 Amount Heparin Sod,Pork in 0.45% 85.487 111.993 NaCl 25,000 unit In 0.45 % NaCl 1 250ml.bag @ 11. 023 UNITS/KG/HR 10 mls/hr IV .Q24H [facility] Rx#: [id number] Norepinephrine 8 mg In 65.829 Sodium Chloride 0.9% 250 ml @ 0.19 MCG/KG/MIN 33. 353 mls/hr IV .[id number] [facility] Rx#:[id number] Potassium Chloride 10 meq 200 In Water For Injection 1 100ml.bag @ 100 mls/hr IVPB Q1H [facility] Rx#: [id number] Sodium Bicarb (1 Meq/ml) 74.2 14.7 12.5 ml In Dextrose 5% in Water 500 ml @ Per Protocol IV DIRECTED [facility] Rx#:[id number] Sodium Chloride 0.9% 1, 20 000 ml @ 20 mls/hr IV . Q24H [facility] Rx#:[id number] Sodium Chloride 0.9% 1, 450 000 ml @ 75 mls/hr IV . [id number] [facility] Rx#:[id number] ceFAZolin 2 gm In Sodium 100 Chloride 0.9% 50 ml @ 100 mls/hr IVPB Q8H [facility] Rx#: [id number] fentaNYL (PF). 1,000 mcg 137.8 62.200 In Sodium Chloride 0.9% 80 ml @ 0.5 MCG/KG/HR 4. 536 mls/hr IV .Q22H3M [facility] Rx#:[id number] propofoL 1,000 mg In 149.759 367.372 Empty Bag 1 bag @ 15 MCG/ KG/MIN 8.165 mls/hr IV . [id number] [facility] Rx#:[id number] Tube Feeding 20 180 20 Other 90 Output: Urine 400 455 70 Other: Voiding Method Indwelling Catheter Indwelling Catheter ABP, PAP, CO, CI - Last Documented Arterial Blood Pressure 127/69 - Exam GENERAL EXAM: Intubated, sedated 78-year-old male, on the mechanical ventilator, in no apparent distress. Patient is currently on a combination of propofol and fentanyl. HEAD: Normocephalic. EYES: Normal reaction of pupils, equal size. NOSE: Clear with pink turbinates. THROAT: Oral endotracheal and gastric tube secured in place. No erythema or exudates. NECK: No masses, no JVD. CHEST: No chest wall deformity. LUNGS: Equal air entry with bilateral scattered rhonchi. CVS: S1 and S2 normal with no audible murmur, regular rhythm. ABDOMEN: No hepatosplenomegaly, normal bowel sounds, no guarding or rigidity. SPINE: No scoliosis or deformity SKIN: No rashes CENTRAL NERVOUS SYSTEM: Sedated, tone is normal in all 4 extremities. EXTREMITIES: There is no peripheral edema. No clubbing, no cyanosis. Peripheral pulses diminished in the lower extremities although there is still some weak pulses. Extremities are cold. No mottling. No cyanosis. - Labs CBC & Chem 7: 07/13/24 12:42 07/13/24 04:40 Labs: Abnormal Lab Results - Last 24 Hours (Table) 07/11/24 07/12/24 07/12/24 Range/Units 11:03 12:50 12:50 Hgb 11.4 L (13.0-17.5) gm/dL Hct 36.3 L (39.0-53.0) % MCV 66.9 L (80.0-100.0) fL MCH 21.1 L (25.0-35.0) pg RDW 16.7 H (11.5-15.5) % Plt Count (150-450) k/uL APTT >200.0 H* (22.0-30.0) sec ABG pH (7.35-7.45) ABG pCO2 (35-45) mmHg ABG HCO3 (21-25) mmol/L ABG O2 Saturation (94-97) % Hemoglobin (13.0-17.5) gm/dL Sodium (137-145) mmol/L Chloride (98-107) mmol/L Carbon Dioxide (22-30) mmol/L BUN (9-20) mg/dL Creatinine (0.66-1.25) mg/dL POC Glucose (mg/dL) (70-110) mg/dL Calcium (8.4-10.2) mg/dL Lactate Dehydrogenase (120-246) U/L Procalcitonin 2.82 H (0.02-0.50) ng/mL 07/12/24 07/12/24 07/12/24 Range/Units 12:50 16:45 16:45 Hgb (13.0-17.5) gm/dL Hct (39.0-53.0) % MCV (80.0-100.0) fL MCH (25.0-35.0) pg RDW (11.5-15.5) % Plt Count (150-450) k/uL APTT 42.8 H (22.0-30.0) sec ABG pH (7.35-7.45) ABG pCO2 (35-45) mmHg ABG HCO3 (21-25) mmol/L ABG O2 Saturation (94-97) % Hemoglobin (13.0-17.5) gm/dL Sodium (137-145) mmol/L Chloride 116 H (98-107) mmol/L Carbon Dioxide 18 L (22-30) mmol/L BUN 28 H (9-20) mg/dL Creatinine 1.26 H (0.66-1.25) mg/dL POC Glucose (mg/dL) (70-110) mg/dL Calcium 7.9 L (8.4-10.2) mg/dL Lactate Dehydrogenase 584 H (120-246) U/L Procalcitonin (0.02-0.50) ng/mL 07/12/24 07/12/24 07/13/24 Range/Units 18:45 20:45 00:20 Hgb (13.0-17.5) gm/dL Hct (39.0-53.0) % MCV (80.0-100.0) fL MCH (25.0-35.0) pg RDW (11.5-15.5) % Plt Count (150-450) k/uL APTT 34.9 H 48.8 H (22.0-30.0) sec ABG pH (7.35-7.45) ABG pCO2 (35-45) mmHg ABG HCO3 (21-25) mmol/L ABG O2 Saturation (94-97) % Hemoglobin (13.0-17.5) gm/dL Sodium (137-145) mmol/L Chloride (98-107) mmol/L Carbon Dioxide (22-30) mmol/L BUN (9-20) mg/dL Creatinine (0.66-1.25) mg/dL POC Glucose (mg/dL) (70-110) mg/dL Calcium (8.4-10.2) mg/dL Lactate Dehydrogenase 809 H (120-246) U/L Procalcitonin (0.02-0.50) ng/mL 07/13/24 07/13/24 07/13/24 Range/Units 00:20 04:40 04:40 Hgb (13.0-17.5) gm/dL Hct (39.0-53.0) % MCV (80.0-100.0) fL MCH (25.0-35.0) pg RDW (11.5-15.5) % Plt Count (150-450) k/uL APTT 37.9 H (22.0-30.0) sec ABG pH (7.35-7.45) ABG pCO2 (35-45) mmHg ABG HCO3 (21-25) mmol/L ABG O2 Saturation (94-97) % Hemoglobin (13.0-17.5) gm/dL Sodium 135 L (137-145) mmol/L Chloride 115 H (98-107) mmol/L Carbon Dioxide 18 L (22-30) mmol/L BUN 27 H (9-20) mg/dL Creatinine (0.66-1.25) mg/dL POC Glucose (mg/dL) (70-110) mg/dL Calcium 7.8 L (8.4-10.2) mg/dL Lactate Dehydrogenase 928 H 984 H (120-246) U/L Procalcitonin (0.02-0.50) ng/mL 07/13/24 07/13/24 07/13/24 Range/Units 04:40 06:03 06:06 Hgb 10.6 L (13.0-17.5) gm/dL Hct 33.1 L (39.0-53.0) % MCV 65.8 L (80.0-100.0) fL MCH 21.1 L (25.0-35.0) pg RDW 16.5 H (11.5-15.5) % Plt Count 126 L (150-450) k/uL APTT (22.0-30.0) sec ABG pH 7.46 H (7.35-7.45) ABG pCO2 27 L (35-45) mmHg ABG HCO3 19 L (21-25) mmol/L ABG O2 Saturation 97.9 H (94-97) % Hemoglobin 10.7 L (13.0-17.5) gm/dL Sodium (137-145) mmol/L Chloride (98-107) mmol/L Carbon Dioxide (22-30) mmol/L BUN (9-20) mg/dL Creatinine (0.66-1.25) mg/dL POC Glucose (mg/dL) 125 H (70-110) mg/dL Calcium (8.4-10.2) mg/dL Lactate Dehydrogenase (120-246) U/L Procalcitonin (0.02-0.50) ng/mL Microbiology - Last 24 Hours (Table) 07/12/24 03:15 Gram Stain - Preliminary Sputum 07/11/24 04:47 Blood Culture - Preliminary Blood Assessment and Plan Plan: Outside the hospital cardiac arrest requiring 5 minutes of CPR prior to return of spontaneous circulation Acute non-ST segment elevation myocardial infarction, status post cardiac catheterization indicating triple-vessel coronary artery disease Severe ischemic cardiomyopathy with an ejection fraction of 25 to 30% and segmental wall motion abnormalities Cardiogenic shock secondary to above and the patient has an Impella for mechanical support, P7 augmentation, taken off pressors and the patient is p roducing adequate amount of urine output. Acute hypoxemic respiratory failure secondary to above requiring intubation and mechanical ventilatory support Severe metabolic acidosis at time of admission, improvement in acid-base status Acute kidney injury, improving and the creatinine is down to 1.08 Recent discharge in May 2024 for atypical chest pain and COVID-19 infection/pneumonitis Rheumatoid arthritis Hypertension Benign prostatic hyperplasia Plan: Continue ventilator support and dropped respiratory rate down to 22 Continue aspirin Continue IV heparin Patient is currently off pressors Titrate down the fentanyl drip as tolerated Continue propofol for sedation Continue heparin drip per weight-based protocol Discontinue antibiotics Keep Impella in for mechanical support and cardiothoracic surgery has been consulted Continue tube feedings for nutritional support currently vital AF 1.2 at 10 with a goal of 57 We will continue to follow and make further recommendations based on his clinical status Condition remains critical. Prognosis poor based on above-mentioned comorb idities. Will continue to follow along with the rest of the consultants. His evaluation was done more than 30 minutes. Time with Patient: Greater than 30
--- NOTE | 2024-07-13 14:57 | P.PN ---
Subjective Progress Note Date: 07/13/24 The patient is a 78-year-old gentleman with a past medical history significant for hypertension and rheumatoid arthritis and recently diagnosed of COVID-19 infection all this information was obtained from the chart. Currently the patient is intubated and he is on mechanical ventilation and history was taken from the chart as well as from the nurse taking care of the patient. The patient was in his usual state of health till earlier today when he was doing some work in his backyard and he was experiencing symptoms of chest discomfort and shortness of breath. Subsequent ambulance was called and upon arrival the patient collapsed and he was pulseless. CPR initiated for 5 minutes and brought to normal sinus mechanism. Subsequently patient was intubated and placed on mechanical ventilation. He was hypotensive and he continues to be hypotensive requiring norepinephrine. He was seen in intensive care unit. Currently he is still hemodynamically unstable and requiring norepinephrine. He is in sinus mechanism. I did review the EKG and that showed sinus mechanism with deep T wave inversion in the anterolateral leads concerning for severe underlying coronary artery disease versus stress-induced cardiomyopathy. At the same time the patient was admitted to the hospital last month with a chest discomfort in the setting of COVID with abnormal cardiac enzymes and he was treated medically at that point. Please note that the patient was experiencing chest discomfort and shortness of breath earlier today. No history of coronary artery disease or congestive heart failure or cardiac arrhythmia. The first set of troponin came in to be abnormal. The physical examination is remarkable for patient intubated on mechanical ventilation hemodynamically unstable with regular rate and rhythm and systolic murmur at the apical area and diminished breathing sounds bilaterally. July 12, 2024 The patient was seen and evaluated this morning. He continues to be intubated on mechanical ventilation and continues to be also on vasopressors. He is maintaining normal sinus mechanism. The plan is to pursue with a heart catheterization. The physical examination is remarkable for regular rhythm with a distant heart sounds and diminished breathing sounds bilaterally and no edema was noted in the lower extremities. July 13, 2024 Patient is seen and examined at bedside this a.m. He continues to be on ventilator support and Impella support. CVP 10 mmHg, MAP 65 mmHg, SBP 110, DBP 50 mmHg. P7 on Impella, off pressors Good urine output Hemoglobin 10.8, platelets 123, mild hemolysis noticed, LDH is elevated, fibrinogen is elevated but in range. On exam Intubated and sedated, on ventilator support, ET tube in place, appropriate air entry in bilateral lung pineda S1-S2 audible, Impella device in place with murmur from Impella device appreciated. Arterial line in place, good pulses in bilateral upper and lower extremity 1+ pitting edema bilateral lower extremity Detailed neuroexam was not performed Assessment Out of the hospital cardiopulmonary arrest Status post CPR with a downtime of 5 minutes NSTEMI Ischemic cardiomyopathy, EF 15 to 20% Multivessel CAD Multiple comorbid conditions Plan Continue heparin IV. Monitor telemetry for any arrhythmias. If significantly bradycardic, consider transvenous pacemaker. Notify cardiology if heart rate is less sustaining less than 40 bpm. Monitor electrolytes, hemoglobin levels, platelet levels, fibrinogen levels, LDH levels. Monitor renal function and electrolytes Continue aspirin and statin Continue Impella support. Goal is to reduce the Impella level to P4. And eventually wean him off. Consult CT surgery team. Appreciate their recommendations and insight about the timing for the surgery. Obviously he is at high risk for any procedures considering his respiratory status and hemodynamic status. Objective - Vital Signs Vital signs: Vital Signs Temp 98.9 F 07/13/24 12:00 Pulse 54 L 07/13/24 14:15 Resp 22 07/13/24 14:15 BP 110/60 07/13/24 14:15 Pulse Ox 97 07/13/24 14:15 FiO2 40 07/13/24 14:00 Intake & Output 07/12/24 07/13/24 07/13/24 18:59 06:59 18:59 Intake Total 6543.322 5876.765 827.160 Output Total 400 455 760 Balance 1040.075 894.765 67.160 Weight 107.8 kg 107.8 kg Intake: IV 157 503.5 344.3 0.9 KVO @ 20 220 160 Sodium Bicarb (1 Meq/ml) 164.5 118.3 12.5 ml In Dextrose 5% in Water 500 ml @ Per Protocol IV DIRECTED [facility] Rx#:[id number] Sodium Chloride 0.9% 1, 80 000 ml @ 20 mls/hr IV . Q24H [facility] Rx#:[id number] a line x 2 27 69 66 ceFAZolin 2 gm In Sodium 50 Chloride 0.9% 50 ml @ 100 mls/hr IVPB Q8H [facility] Rx#: [id number] Intake, IV Titration 1263.075 576.265 187.860 Amount Heparin Sod,Pork in 0.45% 85.487 111.993 44.995 NaCl 25,000 unit In 0.45 % NaCl 1 250ml.bag @ 11. 023 UNITS/KG/HR 10 mls/hr IV .Q24H [facility] Rx#: [id number] Norepinephrine 8 mg In 65.829 Sodium Chloride 0.9% 250 ml @ 0.19 MCG/KG/MIN 33. 353 mls/hr IV .Q7H45M [facility] Rx#:[id number] Potassium Chloride 10 meq 200 In Water For Injection 1 100ml.bag @ 100 mls/hr IVPB Q1H [facility] Rx#: [id number] Sodium Bicarb (1 Meq/ml) 74.2 14.7 12.5 ml In Dextrose 5% in Water 500 ml @ Per Protocol IV DIRECTED [facility] Rx#:[id number] Sodium Chloride 0.9% 1, 20 000 ml @ 20 mls/hr IV . Q24H [facility] Rx#:[id number] Sodium Chloride 0.9% 1, 450 000 ml @ 75 mls/hr IV . [id number] [facility] Rx#:[id number] ceFAZolin 2 gm In Sodium 100 Chloride 0.9% 50 ml @ 100 mls/hr IVPB Q8H [facility] Rx#: [id number] fentaNYL (PF). 1,000 mcg 137.8 62.200 42.865 In Sodium Chloride 0.9% 80 ml @ 0.5 MCG/KG/HR 4. 536 mls/hr IV .Q22H3M [facility] Rx#:[id number] propofoL 1,000 mg In 149.759 367.372 100.000 Empty Bag 1 bag @ 15 MCG/ KG/MIN 8.165 mls/hr IV . [id number] [facility] Rx#:[id number] Tube Feeding 20 180 235 Other 90 60 Output: Urine 400 455 760 Other: Voiding Method Indwelling Catheter Indwelling Catheter ABP, PAP, CO, CI - Last Documented Arterial Blood Pressure 114/55 - Labs CBC & Chem 7: 07/13/24 12:42 07/13/24 04:40 Labs: Abnormal Lab Results - Last 24 Hours (Table) 07/12/24 07/12/24 07/12/24 Range/Units 16:45 16:45 18:45 Hgb (13.0-17.5) gm/dL Hct (39.0-53.0) % MCV (80.0-100.0) fL MCH (25.0-35.0) pg RDW (11.5-15.5) % Plt Count (150-450) k/uL APTT 42.8 H 34.9 H (22.0-30.0) sec ABG pH (7.35-7.45) ABG pCO2 (35-45) mmHg ABG HCO3 (21-25) mmol/L ABG O2 Saturation (94-97) % Hemoglobin (13.0-17.5) gm/dL Sodium (137-145) mmol/L Chloride (98-107) mmol/L Carbon Dioxide (22-30) mmol/L BUN (9-20) mg/dL POC Glucose (mg/dL) (70-110) mg/dL Calcium (8.4-10.2) mg/dL Lactate Dehydrogenase 584 H (120-246) U/L 07/12/24 07/13/24 07/13/24 Range/Units 20:45 00:20 00:20 Hgb (13.0-17.5) gm/dL Hct (39.0-53.0) % MCV (80.0-100.0) fL MCH (25.0-35.0) pg RDW (11.5-15.5) % Plt Count (150-450) k/uL APTT 48.8 H (22.0-30.0) sec ABG pH (7.35-7.45) ABG pCO2 (35-45) mmHg ABG HCO3 (21-25) mmol/L ABG O2 Saturation (94-97) % Hemoglobin (13.0-17.5) gm/dL Sodium (137-145) mmol/L Chloride (98-107) mmol/L Carbon Dioxide (22-30) mmol/L BUN (9-20) mg/dL POC Glucose (mg/dL) (70-110) mg/dL Calcium (8.4-10.2) mg/dL Lactate Dehydrogenase 809 H 928 H (120-246) U/L 07/13/24 07/13/24 07/13/24 Range/Units 04:40 04:40 04:40 Hgb 10.6 L (13.0-17.5) gm/dL Hct 33.1 L (39.0-53.0) % MCV 65.8 L (80.0-100.0) fL MCH 21.1 L (25.0-35.0) pg RDW 16.5 H (11.5-15.5) % Plt Count 126 L (150-450) k/uL APTT 37.9 H (22.0-30.0) sec ABG pH (7.35-7.45) ABG pCO2 (35-45) mmHg ABG HCO3 (21-25) mmol/L ABG O2 Saturation (94-97) % Hemoglobin (13.0-17.5) gm/dL Sodium 135 L (137-145) mmol/L Chloride 115 H (98-107) mmol/L Carbon Dioxide 18 L (22-30) mmol/L BUN 27 H (9-20) mg/dL POC Glucose (mg/dL) (70-110) mg/dL Calcium 7.8 L (8.4-10.2) mg/dL Lactate Dehydrogenase 984 H (120-246) U/L 07/13/24 07/13/24 07/13/24 Range/Units 06:03 06:06 12:41 Hgb (13.0-17.5) gm/dL Hct (39.0-53.0) % MCV (80.0-100.0) fL MCH (25.0-35.0) pg RDW (11.5-15.5) % Plt Count (150-450) k/uL APTT (22.0-30.0) sec ABG pH 7.46 H (7.35-7.45) ABG pCO2 27 L (35-45) mmHg ABG HCO3 19 L (21-25) mmol/L ABG O2 Saturation 97.9 H (94-97) % Hemoglobin 10.7 L (13.0-17.5) gm/dL Sodium (137-145) mmol/L Chloride (98-107) mmol/L Carbon Dioxide (22-30) mmol/L BUN (9-20) mg/dL POC Glucose (mg/dL) 125 H 116 H (70-110) mg/dL Calcium (8.4-10.2) mg/dL Lactate Dehydrogenase (120-246) U/L 07/13/24 07/13/24 07/13/24 Range/Units 12:42 12:42 12:42 Hgb 10.8 L (13.0-17.5) gm/dL Hct 33.2 L (39.0-53.0) % MCV 66.8 L (80.0-100.0) fL MCH 21.6 L (25.0-35.0) pg RDW 16.4 H (11.5-15.5) % Plt Count 123 L (150-450) k/uL APTT 48.0 H (22.0-30.0) sec ABG pH (7.35-7.45) ABG pCO2 (35-45) mmHg ABG HCO3 (21-25) mmol/L ABG O2 Saturation (94-97) % Hemoglobin (13.0-17.5) gm/dL Sodium (137-145) mmol/L Chloride (98-107) mmol/L Carbon Dioxide (22-30) mmol/L BUN (9-20) mg/dL POC Glucose (mg/dL) (70-110) mg/dL Calcium (8.4-10.2) mg/dL Lactate Dehydrogenase 918 H (120-246) U/L Microbiology - Last 24 Hours (Table) 07/11/24 04:47 Blood Culture - Preliminary Blood 07/12/24 03:15 Gram Stain - Preliminary Sputum Sputum Culture - Preliminary
[2024-07-13 17:28] LABS: Glucose,Whole Blood 122 mg/dL (70-110)
--- NOTE | 2024-07-13 18:12 | CA ---
Transthoracic Echo Report Name: Mookie He Age: 78 Gender: M : 1945 Exam Date: 07/13/2024 09:10 Exam Location: [facility] Ht (in): 73 Wt (lb): 235 Ordering Physician: Jack Abrams MD ([id number]) Attending/Referring Phys: Dispersion Mixer Tonya Lebron RDCS Procedure CPT: Indications: Placement of Left Ventricular Assist Device Cardiac Hx: Technical Quality: Fair Contrast 1: Total Dose (mL): Contrast 2: Total Dose (mL): MEASUREMENTS (Male / Female) Normal Values FINDINGS Left Ventricle Limited study to evaluate the Placement of the Left ventricular Assisted device. LVAD in place. Right Ventricle Right Atrium Left Atrium Mitral Valve Aortic Valve Tricuspid Valve Pulmonic Valve Pericardium No pericardial effusion. Aorta CONCLUSIONS Limited study done to evaluate the placement of LVAD. Previewed by: Dr. Sachin Rueda MD (Electronically Signed) Final Date: 13 July 2024 18:12
--- NOTE | 2024-07-13 18:36 | P.PN ---
Subjective Progress Note Date: 07/13/24 Patient seen and examined today. Patient he is off pressors. Propofol at 15 mcg/kg/min and fentanyl at 0.5 mcg/kg/h. Tube feeds increased to 35. General: intubated, sedated HEENT: normocephalic, atraumatic, no tracheal deviation Respiratory: symmetric chest rise, no cyanosis, ventilator dependent CVS: perfusing all extremities, no distal gangrene, trace pitting edema GI: soft, ND : no SPT, no CVAT, heard is present Neuro: sedated Hospital course: Patient is a 78-year-old male with PMH of rheumatoid arthritis, hypertension and BPH was brought to the emergency department via EMS for cardiopulmonary arrest. His initial laboratory evaluation shows WBC of 19.7, hemoglobin 14.6, MCV of 74.8, platelet count 2 8, sodium 138, potassium 4.3, chloride 117, bicarb 13, BUN 18, creatinine 1.8. His cardiac troponin has been trending upward from 0.588--->14.9. Patient was recently seen at the hospital for the complaint of chest pain. Patient was diagnosed with type II MT slightly with elevated troponins likely secondary to COVID-19 pneumonitis. Echocardiogram showed LVEF of 55% and moderate pulmonary hypertension. Viral panel negative. Chest x-ray interpreted independently shows diffuse patchy infiltrate with groundglass opacities and bilateral pleural effusion. Brain CT shows no acute intracranial process. Chest CTA is negative for pulmonary embolism and patchy opacities throughout both lungs with small bilateral pleural effusions. EKG interpreted independently shows sinus bradycardia with a regular branch block. T wave inversions in anteroseptal and lateral leads. Echocardiogram shows LVEF of 25 to 30% and ischemic cardiomyopathy with apical hypokinesis. Pertinent Labs: WBC 7.9, hemoglobin 10.8, platelet count 123, sodium 135, potassium 3.8, chloride 115, bicarb 18, BUN 27, creatinine 1.08, calcium 7.8, LDH 918 Pertinent imaging: Assessment/Plan: Patient is a 78-year-old male with PMH of rheumatoid arthritis, hypertension and BPH was brought to the emergency department via EMS for cardiopulmonary arrest who is currently intubated and admitted to the medical ICU. #Out of the hospital cardiopulmonary arrest #Elevated troponin, secondary to NSTEMI #Cardiogenic Shock #Recent history of atypical chest pain and COVID-19 pneumonitis Troponin level trending upward from 0.588--->14.9 Cardiology consulted, pending C and CT surgery assessment Echocardiogram as above Heparin drip Aspirin 81 mg p.o. daily, statin 40 mg p.o. at bedtime Morphine 2 mg IV every 2 hour as needed for chest pain Continue cardiac monitoring Lipid panel done on 05/14/2024 TSH 7.63, free T4 0.8 Pulmonology consulted; note reviewed Sedation holiday and spontaneous breathing trials as per ICU protocol Continue weaning off on Impella support #Normocytic anemia in the setting of Impella Hemoglobin 10.8, LDH 918, fibrinogen 422 Continue to monitor CBC #Anion gap metabolic acidosis secondary to lactic acid, resolved Sodium 138, chloride 107, bicarb 13, anion gap 18 Lactic acid 3.2 #Euthyroid sick syndrome secondary above TSH 7.63, free T4 - 0.8 #Hypermagnesemia, resolved Mag 2.1 Continue monitor magnesium level Chronic conditions: BPH: Hold Flomax Hypertension: Hold nifedipine DVT prophylaxis: Heparin drip The patient is admitted with an anticipated more than 2 midnight stay for evaluation of suspected cardiopulmonary arrest CODE STATUS: DNR/DNI Discussed with: Per note Anticipated discharge place: Pending clinical course I saw and evaluated the patient during the pedroza and critical portions of this encounter, and discussed the case in detail with the resident author of this note, I agree with the Assessment and Plan, and my changes, if any, are highlighted in blue. Objective - Vital Signs Vital signs: Vital Signs Temp 99.2 F 07/13/24 16:00 Pulse 58 L 07/13/24 17:00 Resp 22 07/13/24 17:00 BP 107/59 07/13/24 16:15 Pulse Ox 98 07/13/24 17:00 FiO2 40 07/13/24 17:00 Intake & Output 07/12/24 07/13/24 07/13/24 18:59 06:59 18:59 Intake Total 2595.093 8272.765 1191.754 Output Total 468 648 1160 Balance 1040.075 894.765 146.754 Weight 107.8 kg 107.8 kg Intake: IV 157 503.5 476.1 0.9 KVO @ 20 220 220 Sodium Bicarb (1 Meq/ml) 164.5 163.1 12.5 ml In Dextrose 5% in Water 500 ml @ Per Protocol [facility] Rx#:[id number] Sodium Chloride 0.9% 1, 80 000 ml @ 20 mls/hr IV . Q24H [facility] Rx#:[id number] a line x 2 27 69 93 ceFAZolin 2 gm In Sodium 50 Chloride 0.9% 50 ml @ 100 mls/hr IVPB Q8H [facility] Rx#: [id number] Intake, IV Titration 1263.075 576.265 285.654 Amount Heparin Sod,Pork in 0.45% 85.487 111.993 44.995 NaCl 25,000 unit In 0.45 % NaCl 1 250ml.bag @ 11. 023 UNITS/KG/HR 10 mls/hr IV .Q24H [facility] Rx#: [id number] Norepinephrine 8 mg In 65.829 Sodium Chloride 0.9% 250 ml @ 0.19 MCG/KG/MIN 33. 353 mls/hr IV .Q7H45M [facility] Rx#:[id number] Potassium Chloride 10 meq 200 In Water For Injection 1 100ml.bag @ 100 mls/hr IVPB Q1H [facility] Rx#: [id number] Sodium Bicarb (1 Meq/ml) 74.2 14.7 12.5 ml In Dextrose 5% in Water 500 ml @ Per Protocol [facility] Rx#:[id number] Sodium Chloride 0.9% 1, 20 000 ml @ 20 mls/hr IV . Q24H [facility] Rx#:[id number] Sodium Chloride 0.9% 1, 450 000 ml @ 75 mls/hr IV . [id number] [facility] Rx#:[id number] ceFAZolin 2 gm In Sodium 100 Chloride 0.9% 50 ml @ 100 mls/hr IVPB Q8H [facility] Rx#: [id number] fentaNYL (PF). 1,000 mcg 137.8 62.200 42.865 In Sodium Chloride 0.9% 80 ml @ 0.5 MCG/KG/HR 4. 536 mls/hr IV .Q22H3M [facility] Rx#:[id number] propofoL 1,000 mg In 149.759 367.372 197.794 Empty Bag 1 bag @ 15 MCG/ KG/MIN 8.165 mls/hr IV . [id number] [facility] Rx#:[id number] Tube Feeding 20 180 340 Other 90 90 Output: Urine 093 804 1862 Other: Voiding Method Indwelling Catheter Indwelling Catheter Indwelling Catheter ABP, PAP, CO, CI - Last Documented Arterial Blood Pressure 147/62 - Labs CBC & Chem 7: 07/13/24 12:42 07/13/24 04:40 Labs: Abnormal Lab Results - Last 24 Hours (Table) 07/12/24 07/12/24 07/13/24 Range/Units 18:45 20:45 00:20 Hgb (13.0-17.5) gm/dL Hct (39.0-53.0) % MCV (80.0-100.0) fL MCH (25.0-35.0) pg RDW (11.5-15.5) % Plt Count (150-450) k/uL APTT 34.9 H 48.8 H (22.0-30.0) sec ABG pH (7.35-7.45) ABG pCO2 (35-45) mmHg ABG HCO3 (21-25) mmol/L ABG O2 Saturation (94-97) % Hemoglobin (13.0-17.5) gm/dL Sodium (137-145) mmol/L Chloride (98-107) mmol/L Carbon Dioxide (22-30) mmol/L BUN (9-20) mg/dL POC Glucose (mg/dL) (70-110) mg/dL Calcium (8.4-10.2) mg/dL Lactate Dehydrogenase 809 H (120-246) U/L 07/13/24 07/13/24 07/13/24 Range/Units 00:20 04:40 04:40 Hgb (13.0-17.5) gm/dL Hct (39.0-53.0) % MCV (80.0-100.0) fL MCH (25.0-35.0) pg RDW (11.5-15.5) % Plt Count (150-450) k/uL APTT 37.9 H (22.0-30.0) sec ABG pH (7.35-7.45) ABG pCO2 (35-45) mmHg ABG HCO3 (21-25) mmol/L ABG O2 Saturation (94-97) % Hemoglobin (13.0-17.5) gm/dL Sodium 135 L (137-145) mmol/L Chloride 115 H (98-107) mmol/L Carbon Dioxide 18 L (22-30) mmol/L BUN 27 H (9-20) mg/dL POC Glucose (mg/dL) (70-110) mg/dL Calcium 7.8 L (8.4-10.2) mg/dL Lactate Dehydrogenase 928 H 984 H (120-246) U/L 07/13/24 07/13/24 07/13/24 Range/Units 04:40 06:03 06:06 Hgb 10.6 L (13.0-17.5) gm/dL Hct 33.1 L (39.0-53.0) % MCV 65.8 L (80.0-100.0) fL MCH 21.1 L (25.0-35.0) pg RDW 16.5 H (11.5-15.5) % Plt Count 126 L (150-450) k/uL APTT (22.0-30.0) sec ABG pH 7.46 H (7.35-7.45) ABG pCO2 27 L (35-45) mmHg ABG HCO3 19 L (21-25) mmol/L ABG O2 Saturation 97.9 H (94-97) % Hemoglobin 10.7 L (13.0-17.5) gm/dL Sodium (137-145) mmol/L Chloride (98-107) mmol/L Carbon Dioxide (22-30) mmol/L BUN (9-20) mg/dL POC Glucose (mg/dL) 125 H (70-110) mg/dL Calcium (8.4-10.2) mg/dL Lactate Dehydrogenase (120-246) U/L 07/13/24 07/13/24 07/13/24 Range/Units 12:41 12:42 12:42 Hgb (13.0-17.5) gm/dL Hct (39.0-53.0) % MCV (80.0-100.0) fL MCH (25.0-35.0) pg RDW (11.5-15.5) % Plt Count (150-450) k/uL APTT 48.0 H (22.0-30.0) sec ABG pH (7.35-7.45) ABG pCO2 (35-45) mmHg ABG HCO3 (21-25) mmol/L ABG O2 Saturation (94-97) % Hemoglobin (13.0-17.5) gm/dL Sodium (137-145) mmol/L Chloride (98-107) mmol/L Carbon Dioxide (22-30) mmol/L BUN (9-20) mg/dL POC Glucose (mg/dL) 116 H (70-110) mg/dL Calcium (8.4-10.2) mg/dL Lactate Dehydrogenase 918 H (120-246) U/L 07/13/24 07/13/24 Range/Units 12:42 17:26 Hgb 10.8 L (13.0-17.5) gm/dL Hct 33.2 L (39.0-53.0) % MCV 66.8 L (80.0-100.0) fL MCH 21.6 L (25.0-35.0) pg RDW 16.4 H (11.5-15.5) % Plt Count 123 L (150-450) k/uL APTT (22.0-30.0) sec ABG pH (7.35-7.45) ABG pCO2 (35-45) mmHg ABG HCO3 (21-25) mmol/L ABG O2 Saturation (94-97) % Hemoglobin (13.0-17.5) gm/dL Sodium (137-145) mmol/L Chloride (98-107) mmol/L Carbon Dioxide (22-30) mmol/L BUN (9-20) mg/dL POC Glucose (mg/dL) 122 H (70-110) mg/dL Calcium (8.4-10.2) mg/dL Lactate Dehydrogenase (120-246) U/L Microbiology - Last 24 Hours (Table) 07/11/24 04:47 Blood Culture - Preliminary Blood 07/12/24 03:15 Gram Stain - Preliminary Sputum Sputum Culture - Preliminary
[2024-07-13 19:36] LABS: Partial Thromboplastin Time 49.1 sec (22.0-30.0)
[2024-07-14 00:31] LABS: Glucose,Whole Blood 115 mg/dL (70-110)
[2024-07-14 00:38] LABS: African American GFR (CKD) >90 (>60 ml/min/1.73 sqM); Anion Gap 3 mmol/L; Blood Urea Nitrogen 18 mg/dL (9-20); Calcium 7.5 mg/dL (8.4-10.2); Carbon Dioxide 20 mmol/L (22-30); Chloride 114 mmol/L (98-107); Glucose 113 mg/dL (74-99); Magnesium 2.1 mg/dL (1.6-2.3); Non-African American GFR(CKD) 83 (>60 ml/min/1.73 sqM); Potassium 4.3 mmol/L (3.5-5.1); Sodium 137 mmol/L (137-145)
[2024-07-14 04:45] LABS: INR 0.9 (<1.2); Partial Thromboplastin Time 42.4 sec (22.0-30.0); Prothrombin Time 10.2 sec (10.0-12.5)
[2024-07-14 04:51] LABS: African American GFR (CKD) >90 (>60 ml/min/1.73 sqM); Anion Gap 3 mmol/L; Blood Urea Nitrogen 17 mg/dL (9-20); Calcium 7.7 mg/dL (8.4-10.2); Carbon Dioxide 22 mmol/L (22-30); Chloride 112 mmol/L (98-107); Glucose 116 mg/dL (74-99); LDH 946 U/L (120-246); Non-African American GFR(CKD) 85 (>60 ml/min/1.73 sqM); Potassium 4.5 mmol/L (3.5-5.1); Sodium 137 mmol/L (137-145)
[2024-07-14 05:16] LABS: Anisocytosis Slight; Basophils % (A) 0 %; Eosinophils # (A) 0.1 k/uL (0-0.7); Eosinophils % (A) 1 %; HCT 32.8 % (39.0-53.0); HGB 9.9 gm/dL (13.0-17.5); Hypochromasia Moderate; Lymphocytes # (A) 1.4 k/uL (1.0-4.8); Lymphocytes % (A) 21 %; MCH 20.5 pg (25.0-35.0); MCHC 30.3 g/dL (31.0-37.0); MCV 67.9 fL (80.0-100.0); Mean Platelet Volume 8.1; Microcytosis Marked; Monocytes # (A) 0.5 k/uL (0-1.0); Monocytes % (A) 7 %; Neutrophils # (A) 4.5 k/uL (1.3-7.7); Neutrophils % (A) 68 %; Platelet Count 106 k/uL (150-450); RBC 4.83 m/uL (4.30-5.90); RDW 16.9 % (11.5-15.5); WBC 6.7 k/uL (3.8-10.6)
[2024-07-14 06:06] LABS: Glucose,Whole Blood 147 mg/dL (70-110)
[2024-07-14 06:06] LABS: ABG HCO3 22 mmol/L (21-25); ABG Oxygen Saturation 95.7 % (94-97); ABG PCO2 43 mmHg (35-45); ABG PH 7.32 (7.35-7.45); ABG PO2 84 mmHg (83-108); ABG TCO2 23 mmol/L (19-24); Allen Test Performed? Yes
--- NOTE | 2024-07-14 07:50 | XR ---
EXAMINATION TYPE: XR chest 1V portable DATE OF EXAM: 07/14/2024 COMPARISON: 07/12/2024 CLINICAL INDICATION: Male, 78 years old with history of intubated, impella right groin; , TECHNIQUE: XR chest 1V portable views of the chest. FINDINGS: ET tube 2.3 cm above santino. Central line stable in positioning. Diffuse interstitial pattern with bi lateral consolidation and pleural effusion stable. Mild cardiomegaly. Degenerative change of the spin e. Postsurgical change overlying cervical spine. No sizable pneumothorax. IMPRESSION: 1. Stable pleural parenchymal changes most typical of CHF. Underlying pneumonia not excluded. [facility], , 07/14/2024 7:47 AM
[2024-07-14] MEDS: FUROSEMIDE 10 MG/ML 4 ML VIAL IV SCH (09:34)
[2024-07-14 09:43] LABS: ABG Base Excess -3.3 mmol/L; ABG HCO3 23 mmol/L (21-25); ABG Oxygen Saturation 70.9 % (94-97); ABG PCO2 49 mmHg (35-45); ABG PH 7.29 (7.35-7.45); ABG TCO2 25 mmol/L (19-24)
[2024-07-14 09:48] LABS: ABG Base Excess -4.1 mmol/L; ABG HCO3 22 mmol/L (21-25); ABG Oxygen Saturation 97.5 % (94-97); ABG PCO2 41 mmHg (35-45); ABG PH 7.33 (7.35-7.45); ABG PO2 97 mmHg (83-108); ABG TCO2 23 mmol/L (19-24)
[2024-07-14 09:52] LABS: ABG PO2 43 mmHg (83-108)
--- NOTE | 2024-07-14 10:40 | P.GSCN ---
History of Present Illness Consult date: 07/14/24 Reason for Consult: Coronary artery disease Requesting physician: Con Cotto History of present illness: This is a 78-year-old gentleman who follows outpatient with Dr. Sandoval for primary care. He has a previous medical history of hypertension, rheumatoid arthritis, COVID, BPH. Apparently he was just here in May with chest pain and COVID, he recovered and was discharged to home on May 15, 2024. He has been doing well at home. Unfortunately for the last few days he had noticed worsening shortness of breath and chest discomfort. EMS was called, subsequently the patient became unresponsive and pulseless. CPR was initiated with ROSC after about 5 minutes. He came into the emergency room at [facility] via EMS with [id number] assistance and was quickly intubated in the emergency room. He was hypotensive requiring vasopressor use. He underwent multiple studies including brain CT, chest CTA, chest x-ray, EKG. Lab work revealed WBC 19.7, hemoglobin 14.6, BUN 27, creatinine 1.35, CO2 2017, troponin was initially 0.588 with rise to 22.8, BNP was 2770, TSH 7.63 with free T4 at 0.8, initial lactic acid 3.2, procalcitonin 2.82, virus serology was negative. His EKG demonstrated sinus rhythm with T wave inversion in the anterolateral leads. CT of the brain revealed no acute process. Chest CTA revealed no pulmonary embolism. He was brought to the intensive care unit intubated on multiple pressors. Arterial line and central venous line were placed. Echocardiogram was completed demonstrating reduced left ventricular systolic function with EF 25 to 30%, hypokinetic septum, hypokinetic apex, moderate right ventricular dilatation, moderate left atrial dilatation, mild mitral regurgitation, mild aortic regurgitation, mild tricuspid regurgitation, no pericardial effusion, normal size aortic root. He was taken to the [facility] on July [address] Abrams revealing extremely calcified right and left coronary systems with critical triple-vessel coronary artery disease, severely elevated left-sided filling pressure, and placement of left ventricular Impella. Due to findings on catheterization consultation was placed to cardiothoracic surgery for revascularization recommendations. Review of Systems Review of systems unable to be completed other than as noted in the HPI due to patient sedated on mechanical ventilation Past Medical History Past Medical History: Coronary Artery Disease (CAD), Hypertension, Rheumatoid Arthritis (RA) Additional Past Medical History / Comment(s): covid +/CP with hospital admission may 2024 History of Any Multi-Drug Resistant Organisms: None Reported Past Surgical History: Orthopedic Surgery Additional Past Surgical History / Comment(s): neck surgery; right knee surgery; right shoulder surgery; lower back Past Anesthesia/Blood Transfusion Reactions: No Reported Reaction Smoking Status: Never smoker Medications and Allergies Home Medications Medication Instructions Recorded Confirmed Type Multivitamins, Thera [Multivitamin 1 tab PO DAILY 05/13/24 07/11/24 History (formulary)] NIFEdipine [Adalat CC] 30 mg PO DAILY PRN 05/13/24 07/11/24 History [place]-3/Dha/Epa/Fish Oil [Fish Oil 2 cap PO DAILY 05/13/24 07/11/24 History 1,000 mg Softgel] Sennosides [Senokot] 8.6 mg PO DAILY PRN 05/13/24 07/11/24 History Tamsulosin HCl [Flomax] 0.4 mg PO HS 05/13/24 07/11/24 History hydrOXYzine HCL [Atarax] 25 mg PO HS PRN 05/13/24 07/11/24 History Etanercept [Enbrel] 50 mg SQ MO #0 05/15/24 07/11/24 Rx Allergies Allergy/AdvReac Type Severity Reaction Status Date / Time No Known Allergies Allergy Verified 07/11/24 09:38 Surgical - Exam Vital Signs Temp Pulse Resp BP Pulse Ox 96.8 F L 107 H 16 181/99 85 L 07/11/24 02:20 07/11/24 02:20 07/11/24 02:20 07/11/24 02:20 07/11/24 02:20 CONSTITUTIONAL: Currently sedated on mechanical ventilation, no acute distress, currently off all pressors EYES: Pupils equal, round, reactive to light, normal ocular movement ENT: Moist mucous membranes without oral lesions present, 7.5 ET tube present, 28 at the lip NECK: No masses, no bruits, trachea midline RESPIRATORY: Lungs sounds diminished in the bases bilaterally. Respirations even, nonlabored on mechanical ventilation. Currently settings assist-control mode, FiO2 40%, PEEP 5, tidal volume 450, respiratory rate 18 CARDIOVASCULAR: S1, S2 present. Slow but regular rate and rhythm, sinus bradycardia on telemetry. Palpable peripheral pulses bilaterally. No edema present. GASTROINTESTINAL: Abdomen soft, nontender, nondistended without masses or organomegaly noted. There is no rebound or guarding present. Active bowel sounds present 4 quadrants, OG tube present, tube feeding infusing at 35 mL/h GENITOURINARY: Mckeon present draining clear, yellow urine INTEGUMENTARY: Skin is warm and dry NEUROLOGIC: Sedated on mechanical ventilation, per nursing patient does track, squeezes, moves everything except right arm INVASIVE LINES: Left subclavian triple-lumen central line, right radial arterial line present. Right groin Impella present, currently set at P5 with 2.8 L/min flow Results - Labs 07/14/24 04:20 07/14/24 04:20 Abnormal Lab Results - Last 24 Hours (Table) 07/13/24 07/13/24 07/13/24 Range/Units 12:41 12:42 12:42 Hgb (13.0-17.5) gm/dL Hct (39.0-53.0) % MCV (80.0-100.0) fL MCH (25.0-35.0) pg MCHC (31.0-37.0) g/dL RDW (11.5-15.5) % Plt Count (150-450) k/uL APTT 48.0 H (22.0-30.0) sec Fibrinogen (200-500) mg/dL ABG pH (7.35-7.45) ABG pCO2 (35-45) mmHg ABG pO2 (83-108) mmHg ABG Total CO2 (19-24) mmol/L ABG O2 Saturation (94-97) % Hemoglobin (13.0-17.5) gm/dL Chloride (98-107) mmol/L Carbon Dioxide (22-30) mmol/L Glucose (74-99) mg/dL POC Glucose (mg/dL) 116 H (70-110) mg/dL Calcium (8.4-10.2) mg/dL Lactate Dehydrogenase 918 H (120-246) U/L 07/13/24 07/13/24 07/13/24 Range/Units 12:42 17:26 19:05 Hgb 10.8 L (13.0-17.5) gm/dL Hct 33.2 L (39.0-53.0) % MCV 66.8 L (80.0-100.0) fL MCH 21.6 L (25.0-35.0) pg MCHC (31.0-37.0) g/dL RDW 16.4 H (11.5-15.5) % Plt Count 123 L (150-450) k/uL APTT 49.1 H (22.0-30.0) sec Fibrinogen (200-500) mg/dL ABG pH (7.35-7.45) ABG pCO2 (35-45) mmHg ABG pO2 (83-108) mmHg ABG Total CO2 (19-24) mmol/L ABG O2 Saturation (94-97) % Hemoglobin (13.0-17.5) gm/dL Chloride (98-107) mmol/L Carbon Dioxide (22-30) mmol/L Glucose (74-99) mg/dL POC Glucose (mg/dL) 122 H (70-110) mg/dL Calcium (8.4-10.2) mg/dL Lactate Dehydrogenase (120-246) U/L 07/13/24 07/13/24 07/14/24 Range/Units 20:40 23:43 00:29 Hgb (13.0-17.5) gm/dL Hct (39.0-53.0) % MCV (80.0-100.0) fL MCH (25.0-35.0) pg MCHC (31.0-37.0) g/dL RDW (11.5-15.5) % Plt Count (150-450) k/uL APTT (22.0-30.0) sec Fibrinogen (200-500) mg/dL ABG pH (7.35-7.45) ABG pCO2 (35-45) mmHg ABG pO2 (83-108) mmHg ABG Total CO2 (19-24) mmol/L ABG O2 Saturation (94-97) % Hemoglobin (13.0-17.5) gm/dL Chloride 114 H (98-107) mmol/L Carbon Dioxide 20 L (22-30) mmol/L Glucose 113 H (74-99) mg/dL POC Glucose (mg/dL) 115 H (70-110) mg/dL Calcium 7.5 L (8.4-10.2) mg/dL Lactate Dehydrogenase 934 H (120-246) U/L 07/14/24 07/14/24 07/14/24 Range/Units 00:30 04:20 04:20 Hgb (13.0-17.5) gm/dL Hct (39.0-53.0) % MCV (80.0-100.0) fL MCH (25.0-35.0) pg MCHC (31.0-37.0) g/dL RDW (11.5-15.5) % Plt Count (150-450) k/uL APTT 45.6 H 42.4 H (22.0-30.0) sec Fibrinogen 507 H (200-500) mg/dL ABG pH (7.35-7.45) ABG pCO2 (35-45) mmHg ABG pO2 (83-108) mmHg ABG Total CO2 (19-24) mmol/L ABG O2 Saturation (94-97) % Hemoglobin (13.0-17.5) gm/dL Chloride 112 H (98-107) mmol/L Carbon Dioxide (22-30) mmol/L Glucose 116 H (74-99) mg/dL POC Glucose (mg/dL) (70-110) mg/dL Calcium 7.7 L (8.4-10.2) mg/dL Lactate Dehydrogenase 946 H (120-246) U/L 07/14/24 07/14/24 07/14/24 Range/Units 04:20 06:02 06:05 Hgb 9.9 L (13.0-17.5) gm/dL Hct 32.8 L (39.0-53.0) % MCV 67.9 L (80.0-100.0) fL MCH 20.5 L (25.0-35.0) pg MCHC 30.3 L (31.0-37.0) g/dL RDW 16.9 H (11.5-15.5) % Plt Count 106 L (150-450) k/uL APTT (22.0-30.0) sec Fibrinogen (200-500) mg/dL ABG pH 7.32 L (7.35-7.45) ABG pCO2 (35-45) mmHg ABG pO2 (83-108) mmHg ABG Total CO2 (19-24) mmol/L ABG O2 Saturation (94-97) % Hemoglobin 9.8 L (13.0-17.5) gm/dL Chloride (98-107) mmol/L Carbon Dioxide (22-30) mmol/L Glucose (74-99) mg/dL POC Glucose (mg/dL) 147 H (70-110) mg/dL Calcium (8.4-10.2) mg/dL Lactate Dehydrogenase (120-246) U/L 07/14/24 07/14/24 Range/Units 09:40 09:46 Hgb (13.0-17.5) gm/dL Hct (39.0-53.0) % MCV (80.0-100.0) fL MCH (25.0-35.0) pg MCHC (31.0-37.0) g/dL RDW (11.5-15.5) % Plt Count (150-450) k/uL APTT (22.0-30.0) sec Fibrinogen (200-500) mg/dL ABG pH 7.29 L 7.33 L (7.35-7.45) ABG pCO2 49 H (35-45) mmHg ABG pO2 43 L* (83-108) mmHg ABG Total CO2 25 H (19-24) mmol/L ABG O2 Saturation 70.9 L 97.5 H (94-97) % Hemoglobin 9.6 L 9.6 L (13.0-17.5) gm/dL Chloride (98-107) mmol/L Carbon Dioxide (22-30) mmol/L Glucose (74-99) mg/dL POC Glucose (mg/dL) (70-110) mg/dL Calcium (8.4-10.2) mg/dL Lactate Dehydrogenase (120-246) U/L Microbiology - Last 24 Hours (Table) 07/12/24 03:15 Gram Stain - Final Sputum Sputum Culture - Final 07/11/24 04:47 Blood Culture - Preliminary Blood Diabetes panel 07/13/24 07/14/24 Range/Units 23:43 04:20 Sodium 137 137 (137-145) mmol/L Potassium 4.3 4.5 (3.5-5.1) mmol/L Chloride 114 H 112 H (98-107) mmol/L Carbon Dioxide 20 L 22 (22-30) mmol/L BUN 18 17 (9-20) mg/dL Creatinine 0.88 0.83 (0.66-1.25) mg/dL Glucose 113 H 116 H (74-99) mg/dL Calcium 7.5 L 7.7 L (8.4-10.2) mg/dL Calcium panel 07/13/24 07/14/24 Range/Units 23:43 04:20 Calcium 7.5 L 7.7 L (8.4-10.2) mg/dL Pituitary panel 07/13/24 07/14/24 Range/Units 23:43 04:20 Sodium 137 137 (137-145) mmol/L Potassium 4.3 4.5 (3.5-5.1) mmol/L Chloride 114 H 112 H (98-107) mmol/L Carbon Dioxide 20 L 22 (22-30) mmol/L BUN 18 17 (9-20) mg/dL Creatinine 0.88 0.83 (0.66-1.25) mg/dL Glucose 113 H 116 H (74-99) mg/dL Calcium 7.5 L 7.7 L (8.4-10.2) mg/dL Adrenal panel 07/13/24 07/14/24 Range/Units 23:43 04:20 Sodium 137 137 (137-145) mmol/L Potassium 4.3 4.5 (3.5-5.1) mmol/L Chloride 114 H 112 H (98-107) mmol/L Carbon Dioxide 20 L 22 (22-30) mmol/L BUN 18 17 (9-20) mg/dL Creatinine 0.88 0.83 (0.66-1.25) mg/dL Glucose 113 H 116 H (74-99) mg/dL Calcium 7.5 L 7.7 L (8.4-10.2) mg/dL - Imaging Chest x-ray: report reviewed, image reviewed CT scan - chest: report reviewed, image reviewed EKG: image reviewed Additional studies: Heart catheterization films reviewed with Dr. Brewer Assessment and Plan Assessment: Acute cardiac arrest, 5 minutes of downtime with return of spontaneous circulation Coronary artery disease, non-STEMI this admission Acute hypoxic respiratory failure requiring intubation Ischemic cardiomyopathy Lactic acidosis, resolved History of hypertension, was hypotensive on admission with pressor use, resolved Rheumatoid arthritis, on Enbrel outpatient COVID in May 2024 BPH, on Flomax outpatient ADDENDUM: Patient seen and examined. Discussed with Dr Abrams. Management per cardiology at present. Reevaluate for CABG once medically stabilized off mechanical and ventialatory support. Plan: The patient was seen and examined this morning laying in bed in the intensive care unit still on mechanical ventilation with sedation, Impella still present. Chart/diagnostics were reviewed with Dr. Brewer who did review the patient's heart catheterization films. He did discussed with both Dr. Cotto and Dr. Abrams that the patient will likely require surgical myocardial revascularization at some point, ultimately would like patient to recover from his acute events to optimize surgical outcome. Impella management per cardiology. Continue to maximize medical therapy with aspirin, statin. Recommend beta-kaela therapy when able to tolerate. Patient has been off IV pressors for 48 hours and tolerating well. Ventilator management per computer instructor. More recommendations to follow as patient progresses. Thank you Dr. Cotto for this consult, we will continue to follow along with you and make further recommendations as appropriate. I have personally seen and examined the patient, performed the documentation and the assessment and plan as written. Number of minutes spent on the visit: 30. ABELINO Hussein
--- NOTE | 2024-07-14 11:43 | P.PN ---
Subjective Progress Note Date: 07/14/24 Patient seen and examined today. Patient he is off pressors for 48 hours. Propofol at 45 mcg/kg/min and fentanyl at 0.75 mcg/kg/h. Impella= P5. Tube feeds increased to 35. General: intubated, sedated HEENT: normocephalic, atraumatic, no tracheal deviation Respiratory: symmetric chest rise, no cyanosis, ventilator dependent CVS: perfusing all extremities, no distal gangrene, trace pitting edema GI: soft, ND : no SPT, no CVAT, heard is present Neuro: sedated Hospital course: Patient is a 78-year-old male with PMH of rheumatoid arthritis, hypertension and BPH was brought to the emergency department via EMS for cardiopulmonary arrest. His initial laboratory evaluation shows WBC of 19.7, hemoglobin 14.6, MCV of 74.8, platelet count 2 8, sodium 138, potassium 4.3, chloride 117, bicarb 13, BUN 18, creatinine 1.8. His cardiac troponin has been trending upward from 0.588--->14.9. Patient was recently seen at the hospital for the complaint of chest pain. Patient was diagnosed with type II KS slightly with elevated troponins likely secondary to COVID-19 pneumonitis. Echocardiogram showed LVEF of 55% and moderate pulmonary hypertension. Viral panel negative. Chest x-ray interpreted independently shows diffuse patchy infiltrate with groundglass opacities and bilateral pleural effusion. Brain CT shows no acute intracranial process. Chest CTA is negative for pulmonary embolism and patchy opacities throughout both lungs with small bilateral pleural effusions. EKG interpreted independently shows sinus bradycardia with a regular branch block. T wave inversions in anteroseptal and lateral leads. Echocardiogram shows LVEF of 25 to 30% and ischemic cardiomyopathy with apical hypokinesis. Pertinent Labs: WBC 6.6, hemoglobin 9.9, MCV 67.9, platelet 106, fibrinogen 547, sodium 137, potassium 4.5, chloride 112, bicarb 22, creatinine 0.83, calcium 7.7, LDH 946 Pertinent imaging: Chest x-ray appears more wet compared to yesterday Assessment/Plan: Patient is a 78-year-old male with PMH of rheumatoid arthritis, hypertension and BPH was brought to the emergency department via EMS for cardiopulmonary arrest who is currently intubated and admitted to the medical ICU. #Out of the hospital cardiopulmonary arrest #Elevated troponin, secondary to NSTEMI #Cardiogenic Shock #ischemic cardiomyopathy #Recent history of atypical chest pain and COVID-19 pneumonitis Discussed with cardiology today, plan is to wean Impella as much as possible, doing neurological assessment, and decide between CABG versus staged PCI Echocardiogram as above Heparin drip Aspirin 81 mg p.o. daily, statin 40 mg p.o. at bedtime Morphine 2 mg IV every 2 hour as needed for chest pain Continue cardiac monitoring Lipid panel done on 05/14/2024 TSH 7.63, free T4 0.8 Pulmonology consulted; note reviewed Continue weaning off on Impella support IV Lasix 40 mg every 12 hour #Normocytic anemia in the setting of Impella Hemoglobin 10.8, LDH 918, fibrinogen 422 Continue to monitor CBC #Anion gap metabolic acidosis secondary to lactic acid, resolved Sodium 138, chloride 107, bicarb 13, anion gap 18 Lactic acid 3.2 #Euthyroid sick syndrome secondary above TSH 7.63, free T4 - 0.8 #Hypermagnesemia, resolved Mag 2.0 Continue monitor magnesium level Chronic conditions: BPH: Hold Flomax Hypertension: Hold nifedipine DVT prophylaxis: Heparin drip CODE STATUS: DNR/DNI Discussed with: Per note Anticipated discharge place: Pending clinical course I saw and evaluated the patient during the pedroza and critical portions of this encounter, and discussed the case in detail with the resident author of this note, I agree with the Assessment and Plan, and my changes, if any, are highlighted in blue. Objective - Vital Signs Vital signs: Vital Signs Temp 99.2 F 07/14/24 08:00 Pulse 62 07/14/24 11:00 Resp 19 07/14/24 11:00 BP 104/51 07/14/24 08:15 Pulse Ox 98 07/14/24 11:00 FiO2 40 07/14/24 08:08 Intake & Output 07/13/24 07/14/24 07/14/24 18:59 06:59 18:59 Intake Total 4067.023 9221.632 523.121 Output Total 3154 471 7971 Balance 131.038 929.632 -581.879 Weight 107.8 kg 110 kg Intake: IV 520.5 528.9 159.9 0.9 KVO @ 20 240 240 100 Sodium Bicarb (1 Meq/ml) 178.5 180.9 14.9 12.5 ml In Dextrose 5% in Water 500 ml @ Per Protocol IV DIRECTED [facility] Rx#:[id number] a line x 2 102 108 45 Intake, IV Titration 340.538 575.732 158.221 Amount Heparin Sod,Pork in 0.45% 44.995 222.437 27.563 NaCl 25,000 unit In 0.45 % NaCl 1 250ml.bag @ 11. 023 UNITS/KG/HR 10 mls/hr IV .Q24H [facility] Rx#: [id number] fentaNYL (PF). 1,000 mcg 42.865 57.135 35.948 In Sodium Chloride 0.9% 80 ml @ 0.5 MCG/KG/HR 4. 536 mls/hr IV .Q22H3M [facility] Rx#:[id number] propofoL 1,000 mg In 252.678 296.160 94.71 Empty Bag 1 bag @ 15 MCG/ KG/MIN 8.165 mls/hr IV . [id number] [facility] Rx#:[id number] Tube Feeding 375 420 175 Other 90 90 30 Output: Urine 4065 755 6004 Other: Voiding Method Indwelling Catheter Indwelling Catheter Indwelling Catheter ABP, PAP, CO, CI - Last Documented Arterial Blood Pressure 138/47 - Labs CBC & Chem 7: 07/14/24 04:20 07/14/24 04:20 Labs: Abnormal Lab Results - Last 24 Hours (Table) 07/13/24 07/13/24 07/13/24 Range/Units 12:41 12:42 12:42 Hgb (13.0-17.5) gm/dL Hct (39.0-53.0) % MCV (80.0-100.0) fL MCH (25.0-35.0) pg MCHC (31.0-37.0) g/dL RDW (11.5-15.5) % Plt Count (150-450) k/uL APTT 48.0 H (22.0-30.0) sec Fibrinogen (200-500) mg/dL ABG pH (7.35-7.45) ABG pCO2 (35-45) mmHg ABG pO2 (83-108) mmHg ABG Total CO2 (19-24) mmol/L ABG O2 Saturation (94-97) % Hemoglobin (13.0-17.5) gm/dL Chloride (98-107) mmol/L Carbon Dioxide (22-30) mmol/L Glucose (74-99) mg/dL POC Glucose (mg/dL) 116 H (70-110) mg/dL Calcium (8.4-10.2) mg/dL Lactate Dehydrogenase 918 H (120-246) U/L 07/13/24 07/13/24 07/13/24 Range/Units 12:42 17:26 19:05 Hgb 10.8 L (13.0-17.5) gm/dL Hct 33.2 L (39.0-53.0) % MCV 66.8 L (80.0-100.0) fL MCH 21.6 L (25.0-35.0) pg MCHC (31.0-37.0) g/dL RDW 16.4 H (11.5-15.5) % Plt Count 123 L (150-450) k/uL APTT 49.1 H (22.0-30.0) sec Fibrinogen (200-500) mg/dL ABG pH (7.35-7.45) ABG pCO2 (35-45) mmHg ABG pO2 (83-108) mmHg ABG Total CO2 (19-24) mmol/L ABG O2 Saturation (94-97) % Hemoglobin (13.0-17.5) gm/dL Chloride (98-107) mmol/L Carbon Dioxide (22-30) mmol/L Glucose (74-99) mg/dL POC Glucose (mg/dL) 122 H (70-110) mg/dL Calcium (8.4-10.2) mg/dL Lactate Dehydrogenase (120-246) U/L 07/13/24 07/13/24 07/14/24 Range/Units 20:40 23:43 00:29 Hgb (13.0-17.5) gm/dL Hct (39.0-53.0) % MCV (80.0-100.0) fL MCH (25.0-35.0) pg MCHC (31.0-37.0) g/dL RDW (11.5-15.5) % Plt Count (150-450) k/uL APTT (22.0-30.0) sec Fibrinogen (200-500) mg/dL ABG pH (7.35-7.45) ABG pCO2 (35-45) mmHg ABG pO2 (83-108) mmHg ABG Total CO2 (19-24) mmol/L ABG O2 Saturation (94-97) % Hemoglobin (13.0-17.5) gm/dL Chloride 114 H (98-107) mmol/L Carbon Dioxide 20 L (22-30) mmol/L Glucose 113 H (74-99) mg/dL POC Glucose (mg/dL) 115 H (70-110) mg/dL Calcium 7.5 L (8.4-10.2) mg/dL Lactate Dehydrogenase 934 H (120-246) U/L 07/14/24 07/14/24 07/14/24 Range/Units 00:30 04:20 04:20 Hgb (13.0-17.5) gm/dL Hct (39.0-53.0) % MCV (80.0-100.0) fL MCH (25.0-35.0) pg MCHC (31.0-37.0) g/dL RDW (11.5-15.5) % Plt Count (150-450) k/uL APTT 45.6 H 42.4 H (22.0-30.0) sec Fibrinogen 507 H (200-500) mg/dL ABG pH (7.35-7.45) ABG pCO2 (35-45) mmHg ABG pO2 (83-108) mmHg ABG Total CO2 (19-24) mmol/L ABG O2 Saturation (94-97) % Hemoglobin (13.0-17.5) gm/dL Chloride 112 H (98-107) mmol/L Carbon Dioxide (22-30) mmol/L Glucose 116 H (74-99) mg/dL POC Glucose (mg/dL) (70-110) mg/dL Calcium 7.7 L (8.4-10.2) mg/dL Lactate Dehydrogenase 946 H (120-246) U/L 07/14/24 07/14/24 07/14/24 Range/Units 04:20 06:02 06:05 Hgb 9.9 L (13.0-17.5) gm/dL Hct 32.8 L (39.0-53.0) % MCV 67.9 L (80.0-100.0) fL MCH 20.5 L (25.0-35.0) pg MCHC 30.3 L (31.0-37.0) g/dL RDW 16.9 H (11.5-15.5) % Plt Count 106 L (150-450) k/uL APTT (22.0-30.0) sec Fibrinogen (200-500) mg/dL ABG pH 7.32 L (7.35-7.45) ABG pCO2 (35-45) mmHg ABG pO2 (83-108) mmHg ABG Total CO2 (19-24) mmol/L ABG O2 Saturation (94-97) % Hemoglobin 9.8 L (13.0-17.5) gm/dL Chloride (98-107) mmol/L Carbon Dioxide (22-30) mmol/L Glucose (74-99) mg/dL POC Glucose (mg/dL) 147 H (70-110) mg/dL Calcium (8.4-10.2) mg/dL Lactate Dehydrogenase (120-246) U/L 07/14/24 07/14/24 Range/Units 09:40 09:46 Hgb (13.0-17.5) gm/dL Hct (39.0-53.0) % MCV (80.0-100.0) fL MCH (25.0-35.0) pg MCHC (31.0-37.0) g/dL RDW (11.5-15.5) % Plt Count (150-450) k/uL APTT (22.0-30.0) sec Fibrinogen (200-500) mg/dL ABG pH 7.29 L 7.33 L (7.35-7.45) ABG pCO2 49 H (35-45) mmHg ABG pO2 43 L* (83-108) mmHg ABG Total CO2 25 H (19-24) mmol/L ABG O2 Saturation 70.9 L 97.5 H (94-97) % Hemoglobin 9.6 L 9.6 L (13.0-17.5) gm/dL Chloride (98-107) mmol/L Carbon Dioxide (22-30) mmol/L Glucose (74-99) mg/dL POC Glucose (mg/dL) (70-110) mg/dL Calcium (8.4-10.2) mg/dL Lactate Dehydrogenase (120-246) U/L Microbiology - Last 24 Hours (Table) 07/12/24 03:15 Gram Stain - Final Sputum Sputum Culture - Final 07/11/24 04:47 Blood Culture - Preliminary Blood
[2024-07-14 12:02] LABS: Glucose,Whole Blood 134 mg/dL (70-110)
--- NOTE | 2024-07-14 12:21 | P.PN ---
Subjective Progress Note Date: 07/14/24 This is a 78-year-old male patient with a history of rheumatoid arthritis, hypertension, BPH. He was recently here in May for atypical chest pain and COVID-19 pneumonitis. Discharged home on May 15, 2024. Since that time he had been doing well. Pain the patient was having a 2 to 3-day history of worsening shortness of breath. He was active yesterday and cleaning out his garage and did complain of shortness of breath and some chest discomfort. He developed worsening shortness of breath throughout the night. EMS was called and the arrival the patient had collapse. He was pulseless and CPR was started taking approximately 5 minutes until return of spontaneous circulation. He was brought in and being assisted with a bag valve mask device and a pulse ox of 74 and then intubated in the emergency department. He was brought up to the intensive care unit. He is currently intubated, sedated on the mechanical ventilator at a rate of 24, tidal volume 450, FiO2 90% and a PEEP of 10. Blood gases had revealed a PaO2 of 70, pCO2 of 62 and a pH of 7.14 on 100% FiO2. He is on fentanyl at 1.5 mcg/kg/h. He is currently on a heparin drip per weight- based protocol. Norepinephrine at 13.5 mcg/min. Propofol at 30 mcg/kg/min. CT scan of the brain revealed no acute findings. CT angiogram revealed no evidence of pulmonary embolism. There is small bilateral effusions. Some patchy airspace opacity/consolidation throughout both lungs. Mild groundglass opacities. White count 19.7. Hemoglobin 14.6. Platelets 208. Sodium 138. Potassium 4.3. Bicarb 13. BUN 18. Creatinine 1.13. Glucose 313. Troponin 0.588. proBNP 2770. TSH 7.36. Viral screen is negative. The patient is seen today July 12, 2024 in follow-up in the intensive care unit. He remains intubated sedated on the mechanical ventilator. Currently in assist-control mode with a rate of 30, tidal volume 450, FiO2 40% and a PEEP of 10. Morning blood gases revealed a PaO2 of 163, pCO2 of 26 and a pH of 7.49 and 50% FiO2. The PEEP will be decreased to 5. He is currently on cefazolin. Remains on bronchodilators. He is continued on a heparin drip per weight-based protocol. Norepinephrine at 0.03 mcg/kg/min. Propofol at 35 mcg/kg/min. Fentanyl drip at 1.25 mcg/kg/h. White count 9.6. Hemoglobin 11.4. Platelets 166. Sodium 136. Potassium 3.9. Bicarb 18. BUN 29. Creatinine 1.47. Glucose 114. Continue tube feedings of vital AF at a rate of 10 with a goal of 57. Will be on hold for cardiac catheterization today 07/13/2024, the patient is being seen for a follow-up. The patient remains intubated on the mechanical ventilator. He requires mechanical support for his cardiogenic shock postcardiac arrest and the patient is an Impella with a P7 support and a 3.1 L/min of augmentation. The patient remains on sedatives and the patient is currently on propofol the patient is 0.7. On the mechanical ventilator at a rate of 30, tidal volume of 450, FiO2 40% with PEEP of 5. Blood gas showed pH of 7.46 with a pCO2 of 27 and pO2 of 97. Chest x-ray shows cardiomegaly without any acute abnormalities. Orotracheal tubes are in good perfusion. The patient is currently on KVO IV fluids. The patient is on no pressors and the patient was taken off norepinephrine and is producing adequate amount of urine output in the order of 50 cc an hour. He remains on IV heparin. Creatinine is improved and the patient's creatinine peaked at 1.47 and currently is down to 1.08. He has a left subclavian triple-lumen catheter in place. Scada Technician on the case and the patient underwent a cardiac catheterization on 07/12/2024 and the patient was found to have extremely calcified right and left coronary system with evidence of triple-vessel coronary artery disease and severely elevated left ventricular end-diastolic pressure. The white cell count at 7.9 with a hemoglobin 10.8 and a platelet count of 123. Sodium levels at 135, bicarbonate 18, BUN 27 with a creatinine of 1.08. LDH level is at 984. The echocardiogram was completed and the patient was found to have severe impairment of the LV function with an ejection fraction of 25 to 30%. There is also severe cardiomyopathy with wall motion abnormalities involving the apical area that was quite hypokinetic. The patient remains on aspirin. The patient remains on statins and the patient is currently on Lipitor 40 mg p.o. daily. Remains on IV heparin. He is also on vital AF for enteral feeding and nutritional support. Scada Technician on the case. Cardiothoracic surgery was also involved in his care. The patient was deemed a high surgical risk for coronary intervention and bypass. On 07/14/2024, the patient is being seen for a follow-up. The patient remains sedated and the patient is currently on a combination of propofol running at 40 mcg/kg/min and fentanyl at 0.75 mcg/kg/h. The patient remains well sedated on m echanical ventilator and Impella for mechanical support for cardiogenic shock. This morning, the patient's Impella has been switched to P4 support with an augmentation of 2.5 L/min. The patient remains off pressors. Is producing adequate amount of urine output. Fluid balance is +1 L over the past 24 hours. He is hemolyzing and the hemoglobin is currently down to 9.9. Most recent LDH is at 946. At the same time, the patient remains on the mechanical ventilator. He is on assist-control mode with rate of 18, tidal volume of 450, FiO2 40% with a PEEP of 5. The blood gas from today shows a pH of 7.33 with a pCO2 of 41 and pO2 of 97. Chest x-ray is consistent with CHF/increased incisional markings consistent with heart failure. Orotracheal tube is in a good location. The patient has diffuse interstitial pattern bilaterally along with cardiomegaly and he has developed some small bilateral pleural effusions worse on the left. He remains on IV heparin. Remains on enteral feeding for additional support and the patient is currently on vital AF at rate of 35 cc an hour. IV fluids are currently at KVO. The patient's cardiac rhythm is sinus. The white cell count is 6.7 with a hemoglobin 9.9 and a platelet count of 106. The BUN is 17 with a creatinine of 0.8 and a sodium levels at 137, bicarb is at 22. Objective - Vital Signs Vital signs: Vital Signs Temp 99.0 F 07/14/24 12:00 Pulse 60 07/14/24 12:00 Resp 18 07/14/24 12:00 BP 104/51 07/14/24 08:15 Pulse Ox 98 07/14/24 12:00 FiO2 40 07/14/24 11:57 Intake & Output 07/13/24 07/14/24 07/14/24 18:59 06:59 18:59 Intake Total 1139.406 0148.632 617.121 Output Total 0238 485 1193 Balance 131.038 929.632 -1087.879 Weight 107.8 kg 110 kg Intake: IV 520.5 528.9 188.9 0.9 KVO @ 20 240 240 120 Sodium Bicarb (1 Meq/ml) 178.5 180.9 14.9 12.5 ml In Dextrose 5% in Water 500 ml @ Per Protocol IV DIRECTED [facility] Rx#:[id number] a line x 2 102 108 54 Intake, IV Titration 340.538 575.732 158.221 Amount Heparin Sod,Pork in 0.45% 44.995 222.437 27.563 NaCl 25,000 unit In 0.45 % NaCl 1 250ml.bag @ 11. 023 UNITS/KG/HR 10 mls/hr IV .Q24H [facility] Rx#: [id number] fentaNYL (PF). 1,000 mcg 42.865 57.135 35.948 In Sodium Chloride 0.9% 80 ml @ 0.5 MCG/KG/HR 4. 536 mls/hr IV .Q22H3M [facility] Rx#:[id number] propofoL 1,000 mg In 252.678 296.160 94.71 Empty Bag 1 bag @ 15 MCG/ KG/MIN 8.165 mls/hr IV . [id number] [facility] Rx#:[id number] Tube Feeding 375 420 210 Other 90 90 60 Output: Urine 3718 362 0094 Other: Voiding Method Indwelling Catheter Indwelling Catheter Indwelling Catheter ABP, PAP, CO, CI - Last Documented Arterial Blood Pressure 131/43 - Exam GENERAL EXAM: Intubated, sedated 78-year-old male, on the mechanical ventilator, in no apparent distress. Patient is currently on a combination of propofol and fentanyl. HEAD: Normocephalic. EYES: Normal reaction of pupils, equal size. NOSE: Clear with pink turbinates. THROAT: Oral endotracheal and gastric tube secured in place. No erythema or exudates. NECK: No masses, no JVD. CHEST: No chest wall deformity. LUNGS: Equal air entry with bilateral scattered rhonchi. CVS: S1 and S2 normal with no audible murmur, regular rhythm. ABDOMEN: No hepatosplenomegaly, normal bowel sounds, no guarding or rigidity. SPINE: No scoliosis or deformity SKIN: No rashes CENTRAL NERVOUS SYSTEM: Sedated, tone is normal in all 4 extremities. EXTREMITIES: There is no peripheral edema. No clubbing, no cyanosis. Peripheral pulses diminished in the lower extremities although there is still some weak pulses. Extremities are cold. No mottling. No cyanosis. - Labs CBC & Chem 7: 07/14/24 04:20 07/14/24 04:20 Labs: Abnormal Lab Results - Last 24 Hours (Table) 07/13/24 07/13/24 07/13/24 Range/Units 12:41 12:42 12:42 Hgb (13.0-17.5) gm/dL Hct (39.0-53.0) % MCV (80.0-100.0) fL MCH (25.0-35.0) pg MCHC (31.0-37.0) g/dL RDW (11.5-15.5) % Plt Count (150-450) k/uL APTT 48.0 H (22.0-30.0) sec Fibrinogen (200-500) mg/dL ABG pH (7.35-7.45) ABG pCO2 (35-45) mmHg ABG pO2 (83-108) mmHg ABG Total CO2 (19-24) mmol/L ABG O2 Saturation (94-97) % Hemoglobin (13.0-17.5) gm/dL Chloride (98-107) mmol/L Carbon Dioxide (22-30) mmol/L Glucose (74-99) mg/dL POC Glucose (mg/dL) 116 H (70-110) mg/dL Calcium (8.4-10.2) mg/dL Lactate Dehydrogenase 918 H (120-246) U/L 07/13/24 07/13/24 07/13/24 Range/Units 12:42 17:26 19:05 Hgb 10.8 L (13.0-17.5) gm/dL Hct 33.2 L (39.0-53.0) % MCV 66.8 L (80.0-100.0) fL MCH 21.6 L (25.0-35.0) pg MCHC (31.0-37.0) g/dL RDW 16.4 H (11.5-15.5) % Plt Count 123 L (150-450) k/uL APTT 49.1 H (22.0-30.0) sec Fibrinogen (200-500) mg/dL ABG pH (7.35-7.45) ABG pCO2 (35-45) mmHg ABG pO2 (83-108) mmHg ABG Total CO2 (19-24) mmol/L ABG O2 Saturation (94-97) % Hemoglobin (13.0-17.5) gm/dL Chloride (98-107) mmol/L Carbon Dioxide (22-30) mmol/L Glucose (74-99) mg/dL POC Glucose (mg/dL) 122 H (70-110) mg/dL Calcium (8.4-10.2) mg/dL Lactate Dehydrogenase (120-246) U/L 07/13/24 07/13/24 07/14/24 Range/Units 20:40 23:43 00:29 Hgb (13.0-17.5) gm/dL Hct (39.0-53.0) % MCV (80.0-100.0) fL MCH (25.0-35.0) pg MCHC (31.0-37.0) g/dL RDW (11.5-15.5) % Plt Count (150-450) k/uL APTT (22.0-30.0) sec Fibrinogen (200-500) mg/dL ABG pH (7.35-7.45) ABG pCO2 (35-45) mmHg ABG pO2 (83-108) mmHg ABG Total CO2 (19-24) mmol/L ABG O2 Saturation (94-97) % Hemoglobin (13.0-17.5) gm/dL Chloride 114 H (98-107) mmol/L Carbon Dioxide 20 L (22-30) mmol/L Glucose 113 H (74-99) mg/dL POC Glucose (mg/dL) 115 H (70-110) mg/dL Calcium 7.5 L (8.4-10.2) mg/dL Lactate Dehydrogenase 934 H (120-246) U/L 07/14/24 07/14/24 07/14/24 Range/Units 00:30 04:20 04:20 Hgb (13.0-17.5) gm/dL Hct (39.0-53.0) % MCV (80.0-100.0) fL MCH (25.0-35.0) pg MCHC (31.0-37.0) g/dL RDW (11.5-15.5) % Plt Count (150-450) k/uL APTT 45.6 H 42.4 H (22.0-30.0) sec Fibrinogen 507 H (200-500) mg/dL ABG pH (7.35-7.45) ABG pCO2 (35-45) mmHg ABG pO2 (83-108) mmHg ABG Total CO2 (19-24) mmol/L ABG O2 Saturation (94-97) % Hemoglobin (13.0-17.5) gm/dL Chloride 112 H (98-107) mmol/L Carbon Dioxide (22-30) mmol/L Glucose 116 H (74-99) mg/dL POC Glucose (mg/dL) (70-110) mg/dL Calcium 7.7 L (8.4-10.2) mg/dL Lactate Dehydrogenase 946 H (120-246) U/L 07/14/24 07/14/24 07/14/24 Range/Units 04:20 06:02 06:05 Hgb 9.9 L (13.0-17.5) gm/dL Hct 32.8 L (39.0-53.0) % MCV 67.9 L (80.0-100.0) fL MCH 20.5 L (25.0-35.0) pg MCHC 30.3 L (31.0-37.0) g/dL RDW 16.9 H (11.5-15.5) % Plt Count 106 L (150-450) k/uL APTT (22.0-30.0) sec Fibrinogen (200-500) mg/dL ABG pH 7.32 L (7.35-7.45) ABG pCO2 (35-45) mmHg ABG pO2 (83-108) mmHg ABG Total CO2 (19-24) mmol/L ABG O2 Saturation (94-97) % Hemoglobin 9.8 L (13.0-17.5) gm/dL Chloride (98-107) mmol/L Carbon Dioxide (22-30) mmol/L Glucose (74-99) mg/dL POC Glucose (mg/dL) 147 H (70-110) mg/dL Calcium (8.4-10.2) mg/dL Lactate Dehydrogenase (120-246) U/L 07/14/24 07/14/24 07/14/24 Range/Units 09:40 09:46 12:01 Hgb (13.0-17.5) gm/dL Hct (39.0-53.0) % MCV (80.0-100.0) fL MCH (25.0-35.0) pg MCHC (31.0-37.0) g/dL RDW (11.5-15.5) % Plt Count (150-450) k/uL APTT (22.0-30.0) sec Fibrinogen (200-500) mg/dL ABG pH 7.29 L 7.33 L (7.35-7.45) ABG pCO2 49 H (35-45) mmHg ABG pO2 43 L* (83-108) mmHg ABG Total CO2 25 H (19-24) mmol/L ABG O2 Saturation 70.9 L 97.5 H (94-97) % Hemoglobin 9.6 L 9.6 L (13.0-17.5) gm/dL Chloride (98-107) mmol/L Carbon Dioxide (22-30) mmol/L Glucose (74-99) mg/dL POC Glucose (mg/dL) 134 H (70-110) mg/dL Calcium (8.4-10.2) mg/dL Lactate Dehydrogenase (120-246) U/L Microbiology - Last 24 Hours (Table) 07/12/24 03:15 Gram Stain - Final Sputum Sputum Culture - Final 07/11/24 04:47 Blood Culture - Preliminary Blood Assessment and Plan Plan: Outside the hospital cardiac arrest requiring 5 minutes of CPR prior to return of spontaneous circulation, rule out underlying anoxic encephalopathy. Acute non-ST segment elevation myocardial infarction, status post cardiac catheterization indicating triple-vessel coronary artery disease Severe ischemic cardiomyopathy with an ejection fraction of 25 to 30% and segmental wall motion abnormalities Cardiogenic shock secondary to above and the patient has an Impella for mechanical support, P4 augmentation, taken off pressors and the patient is producing adequate amount of urine output. Acute hypoxemic respiratory failure secondary to above requiring intubation and mechanical ventilatory support. Chest x-ray is consistent with CHF and bilateral pleural effusions. Severe metabolic acidosis at time of admission, improvement in acid-base status Acute kidney injury, recovered and the patient is producing adequate amount of urine output Recent discharge in May 2024 for atypical chest pain and COVID-19 infection/pneumonitis Rheumatoid arthritis Hypertension Benign prostatic hyperplasia Plan: Continue ventilator support Give the patient sedation holiday and assess mental status change. Check mixed venous O2 Calculate cardiac output May consider putting this patient's Impella to standby and assess his hemodynamic parameters and decide further management accordingly based on his blood pressure, urine output and cardiac output. Continue aspirin Continue IV heparin Patient is currently off pressors Start the patient on Lasix 40 mg IV every 12 hours. Continue tube feedings for nutritional support currently vital AF 1.2 at 10 with a goal of 57 We will continue to follow and make further recommendations based on his clinical status Condition remains critical. Prognosis poor based on above-mentioned comorbidities. Will continue to follow along with the rest of the consultants. His evaluation was done more than 30 minutes. Time with Patient: Greater than 30
[2024-07-14 13:35] LABS: Partial Thromboplastin Time 55.8 sec (22.0-30.0)
[2024-07-14 14:09] LABS: ABG Base Excess -1.6 mmol/L; ABG HCO3 25 mmol/L (21-25); ABG PCO2 49 mmHg (35-45); ABG PH 7.31 (7.35-7.45); ABG TCO2 26 mmol/L (19-24)
[2024-07-14 14:13] LABS: ABG Base Excess -2.6 mmol/L; ABG HCO3 23 mmol/L (21-25); ABG Oxygen Saturation 98.2 % (94-97); ABG PCO2 42 mmHg (35-45); ABG PH 7.34 (7.35-7.45); ABG PO2 105 mmHg (83-108); ABG TCO2 24 mmol/L (19-24)
[2024-07-14 14:16] LABS: ABG PO2 43 mmHg (83-108)
[2024-07-14] MEDS: SODIUM CHLORIDE 0.9% 500 ML 500 ML IV ONE (16:51)
[2024-07-14 18:09] LABS: Glucose,Whole Blood 124 mg/dL (70-110)
--- NOTE | 2024-07-14 19:22 | US ---
EXAMINATION TYPE: US carotid duplex BILAT DATE OF EXAM: 07/14/2024 COMPARISON: NONE CLINICAL INDICATION: Male, 78 years old with history of stroke; Additional History: Patient on vent TECHNIQUE: Grayscale, color Doppler and spectral Doppler evaluation of the bilateral carotid systems and vertebral arteries.Indirect Doppler criteria was utilized. FINDINGS: EXAM MEASUREMENTS: RIGHT: Peak Systolic Velocity (PSV) cm/sec ----- Right CCA: 71.6 ----- Right ICA: 67.7 ----- Right ECA: 88.6 ICA/CCA ratio: 0.9 RIGHT: End Diastole cm/sec ----- Right CCA: 20.7 ----- Right ICA: 26.0 ----- Right ECA: 11.6 LEFT: Peak Systolic Velocity (PSV) cm/sec ----- Left CCA: 101.6 ----- Left ICA: 127.9 ----- Left ECA: 108.2 ICA/CCA ratio: 1.3 LEFT: End Diastole cm/sec ----- Left CCA: 35.1 ----- Left ICA: 35.3 ----- Left ECA: 7.7 VERTEBRALS (direction of flow): Right Vertebral: Unable to visualize Left Vertebral: Antegrade Rhythm: Normal SALES [employer] TRAINING SPECIALIST NOTES: Unable to visualize right mid/distal ICA and vertebral artery due to patient venti lation and neck position. Right ECA velocity taken in the transverse view, could not obtain in sagitt al. Plaque seen bilateral bifurcations. Slightly elevated velocity seen within the proximal segment o f the left ICA. IMPRESSION: 1. Atheromatous plaquing present which may have mild to moderate internal carotid artery narrowing on the left just above 50%. 2. Unable to visualize Right vertebral artery. Criteria for Assigning % of Stenosis / Diameter reduction (Estimation based on the indirect measurements of the internal carotid artery velocities (ICA PSV). 1. Normal (no stenosis)=ICA PSV < 125 cm/s: ratio < 2.0: ICA EDV<40 cm/s. 2. Less than 50% stenosis=ICA PSV < 125 cm/s: ratio < 2.0: ICA EDV<40 cm/s. 3. 50 to 69% stenosis=ICA PSV of 125 to 230 cm/s: ration 2.0 ? 4.0: ICA EDV 40-100 cm/s. 4. Greater than 70% stenosis to near occlusion= ICA PSV > 230 cm/s: ratio > 4.0: ICA EDV > 100 cm/s. 5. Near occlusion= ICA PSV velocities may be low or undetectable: variable ratio and ICA EDV. 6. Total occlusion=unable to detect flow. [facility], Workstation: [facility], 07/14/2024 7:20 PM
--- NOTE | 2024-07-14 20:54 | P.PN ---
Subjective Progress Note Date: 07/14/24 HPI The patient is a 78-year-old gentleman with a past medical history significant for hypertension and rheumatoid arthritis and recently diagnosed of COVID-19 infection all this information was obtained from the chart. Currently the patient is intubated and he is on mechanical ventilation and history was taken from the chart as well as from the nurse taking care of the patient. The patient was in his usual state of health till earlier today when he was doing some work in his backyard and he was experiencing symptoms of chest discomfort and shortness of breath. Subsequent ambulance was called and upon arrival the patient collapsed and he was pulseless. CPR initiated for 5 minutes and brought to normal sinus mechanism. Subsequently patient was intubated and placed on mechanical ventilation. He was hypotensive and he continues to be hypotensive requiring norepinephrine. He was seen in intensive care unit. Currently he is still hemodynamically unstable and requiring norepinephrine. He is in sinus mechanism. I did review the EKG and that showed sinus mechanism with deep T wave inversion in the anterolateral leads concerning for severe underlying coronary artery disease versus stress-induced cardiomyopathy. At the same time the patient was admitted to the hospital last month with a chest discomfort in the setting of COVID with abnormal cardiac enzymes and he was treated medically at that point. Please note that the patient was experiencing chest discomfort and shortness of breath earlier today. No history of coronary artery disease or congestive heart failure or cardiac arrhythmia. The first set of troponin came in to be abnormal. The physical examination is remarkable for patient intubated on mechanical ventilation hemodynamically unstable with regular rate and rhythm and systolic murmur at the apical area and diminished breathing sounds bilaterally. July 12, 2024 The patient was seen and evaluated this morning. He continues to be intubated on mechanical ventilation and continues to be also on vasopressors. He is maintaining normal sinus mechanism. The plan is to pursue with a heart catheterization. The physical examination is remarkable for regular rhythm with a distant heart sounds and diminished breathing sounds bilaterally and no edema was noted in the lower extremities. July 13, 2024 Patient is seen and examined at bedside this a.m. He continues to be on ventilator support and Impella support. CVP 10 mmHg, MAP 65 mmHg, SBP 110, DBP 50 mmHg. P7 on Impella, off pressors Good urine output Hemoglobin 10.8, platelets 123, mild hemolysis noticed, LDH is elevated, fibrinogen is elevated but in range. July 14, 2024 Patient is seen and examined at bedside this a.m. He continues to be on ventilator support and Impella support. CVP 8 to 10 mmHg, MAP of 65 mmHg, SBP around 100 mmHg, DBP around 50 mmHg Last 9 was on high level. This morning he was on P7 Impella. Off pressors since yesterday afternoon. Continues to have good urine output Hemoglobin 9.9, platelets 106, fibrogenic 507, BUN 17, creatinine 0.8 We tried weaning to P4 levels. At P4 the [place] cardiac index was around 3.2. TRAIN CONDUCTOR still less than 0.6. Patient was given sedation vacation and but neurological evaluation was not appropriate as sedation medication was not long enough. On exam Intubated and sedated, on ventilator support, ET tube in place, appropriate air entry in bilateral lung pineda S1-S2 audible, Impella device in place with murmur from Impella device appreciated. Arterial line in place, good pulses in bilateral upper and lower extremity 1+ pitting edema bilateral lower extremity Detailed neuroexam was not performed Assessment Out of the hospital cardiopulmonary arrest Status post CPR with a downtime of 5 minutes NSTEMI Ischemic cardiomyopathy, EF 15 to 20% Multivessel CAD Multiple comorbid conditions Plan Continue heparin IV. Monitor telemetry for any arrhythmias. If significantly bradycardic, consider transvenous pacemaker. Notify cardiology if heart rate is less sustaining less than 40 bpm. Monitor electrolytes, hemoglobin levels, platelet levels, fibrinogen levels, LDH levels. Monitor renal function and electrolytes Continue aspirin and statin Continue Impella support. Goal is to reduce the Impella level to P4. And e ventually wean him off. Consult neurology, obtain CT head, EEG to evaluate for hypoxic ischemic ence phalopathy to determine the overall prognosis. Obtain limited echocardiogram to assess for LVEF If patient has evidence of hypoxic ischemic encephalopathy, consider poor prognosis and possible palliative care. If no evidence of hypoxic ischemic encephalopathy, and if able to wean off Impella, then plan for CABG after stabilization. If failed to stabilize and not able to wean off Impella because of hemodynamic compromise, we will plan for PCI. CT surgery on board Objective - Vital Signs Vital signs: Vital Signs Temp 99.1 F 07/14/24 20:00 Pulse 58 L 07/14/24 20:00 Resp 18 07/14/24 20:00 BP 104/51 11/05/24 08:15 Pulse Ox 97 07/14/24 20:00 FiO2 40 07/14/24 20:00 Intake & Output 07/14/24 07/14/24 07/15/24 06:59 18:59 06:59 Intake Total 5181.279 7339.912 160.073 Output Total 685 2500 115 Balance 929.632 -700.088 45.073 Weight 110 kg Intake: IV 528.9 391.9 29 0.9 KVO @ 20 240 260 20 Sodium Bicarb (1 Meq/ml) 180.9 14.9 12.5 ml In Dextrose 5% in Water 500 ml @ Per Protocol IV DIRECTED [facility] Rx#:[id number] a line x 2 108 117 9 Intake, IV Titration 575.732 863.012 66.073 Amount Heparin Sod,Pork in 0.45% 222.437 27.563 NaCl 25,000 unit In 0.45 % NaCl 1 250ml.bag @ 11. 023 UNITS/KG/HR 10 mls/hr IV .Q24H [facility] Rx#: [id number] Norepinephrine 8 mg In 2.282 Sodium Chloride 0.9% 250 ml @ 0.19 MCG/KG/MIN 33. 353 mls/hr IV .Q7H45M [facility] Rx#:[id number] Sodium Chloride 0.9% 500 600 ml 500 ml @ 999 mls/hr IV .Q31M [facility] Rx#:[id number] fentaNYL (PF). 1,000 mcg 57.135 53.790 8.921 In Sodium Chloride 0.9% 80 ml @ 0.5 MCG/KG/HR 4. 536 mls/hr IV .Q22H3M [facility] Rx#:[id number] propofoL 1,000 mg In 296.160 179.377 57.152 Empty Bag 1 bag @ 15 MCG/ KG/MIN 8.165 mls/hr IV . [id number] [facility] Rx#:[id number] Tube Feeding 420 455 35 Other 90 90 30 Output: Urine 685 2500 115 Other: Voiding Method Indwelling Catheter Indwelling Catheter Indwelling Catheter ABP, PAP, CO, CI - Last Documented Arterial Blood Pressure 117/48 - Labs CBC & Chem 7: 07/14/24 04:20 07/14/24 04:20 Labs: Abnormal Lab Results - Last 24 Hours (Table) 07/13/24 07/13/24 07/14/24 Range/Units 20:40 23:43 00:29 Hgb (13.0-17.5) gm/dL Hct (39.0-53.0) % MCV (80.0-100.0) fL MCH (25.0-35.0) pg MCHC (31.0-37.0) g/dL RDW (11.5-15.5) % Plt Count (150-450) k/uL APTT (22.0-30.0) sec Fibrinogen (200-500) mg/dL ABG pH (7.35-7.45) ABG pCO2 (35-45) mmHg ABG pO2 (83-108) mmHg ABG Total CO2 (19-24) mmol/L ABG O2 Saturation (94-97) % Hemoglobin (13.0-17.5) gm/dL Chloride 114 H (98-107) mmol/L Carbon Dioxide 20 L (22-30) mmol/L Glucose 113 H (74-99) mg/dL POC Glucose (mg/dL) 115 H (70-110) mg/dL Calcium 7.5 L (8.4-10.2) mg/dL Lactate Dehydrogenase 934 H (120-246) U/L 07/14/24 07/14/24 07/14/24 Range/Units 00:30 04:20 04:20 Hgb (13.0-17.5) gm/dL Hct (39.0-53.0) % MCV (80.0-100.0) fL MCH (25.0-35.0) pg MCHC (31.0-37.0) g/dL RDW (11.5-15.5) % Plt Count (150-450) k/uL APTT 45.6 H 42.4 H (22.0-30.0) sec Fibrinogen 507 H (200-500) mg/dL ABG pH (7.35-7.45) ABG pCO2 (35-45) mmHg ABG pO2 (83-108) mmHg ABG Total CO2 (19-24) mmol/L ABG O2 Saturation (94-97) % Hemoglobin (13.0-17.5) gm/dL Chloride 112 H (98-107) mmol/L Carbon Dioxide (22-30) mmol/L Glucose 116 H (74-99) mg/dL POC Glucose (mg/dL) (70-110) mg/dL Calcium 7.7 L (8.4-10.2) mg/dL Lactate Dehydrogenase 946 H (120-246) U/L 07/14/24 07/14/24 07/14/24 Range/Units 04:20 06:02 06:05 Hgb 9.9 L (13.0-17.5) gm/dL Hct 32.8 L (39.0-53.0) % MCV 67.9 L (80.0-100.0) fL MCH 20.5 L (25.0-35.0) pg MCHC 30.3 L (31.0-37.0) g/dL RDW 16.9 H (11.5-15.5) % Plt Count 106 L (150-450) k/uL APTT (22.0-30.0) sec Fibrinogen (200-500) mg/dL ABG pH 7.32 L (7.35-7.45) ABG pCO2 (35-45) mmHg ABG pO2 (83-108) mmHg ABG Total CO2 (19-24) mmol/L ABG O2 Saturation (94-97) % Hemoglobin 9.8 L (13.0-17.5) gm/dL Chloride (98-107) mmol/L Carbon Dioxide (22-30) mmol/L Glucose (74-99) mg/dL POC Glucose (mg/dL) 147 H (70-110) mg/dL Calcium (8.4-10.2) mg/dL Lactate Dehydrogenase (120-246) U/L 07/14/24 07/14/24 07/14/24 Range/Units 09:40 09:46 12:01 Hgb (13.0-17.5) gm/dL Hct (39.0-53.0) % MCV (80.0-100.0) fL MCH (25.0-35.0) pg MCHC (31.0-37.0) g/dL RDW (11.5-15.5) % Plt Count (150-450) k/uL APTT (22.0-30.0) sec Fibrinogen (200-500) mg/dL ABG pH 7.29 L 7.33 L (7.35-7.45) ABG pCO2 49 H (35-45) mmHg ABG pO2 43 L* (83-108) mmHg ABG Total CO2 25 H (19-24) mmol/L ABG O2 Saturation 70.9 L 97.5 H (94-97) % Hemoglobin 9.6 L 9.6 L (13.0-17.5) gm/dL Chloride (98-107) mmol/L Carbon Dioxide (22-30) mmol/L Glucose (74-99) mg/dL POC Glucose (mg/dL) 134 H (70-110) mg/dL Calcium (8.4-10.2) mg/dL Lactate Dehydrogenase (120-246) U/L 07/14/24 07/14/24 07/14/24 Range/Units 13:00 13:00 14:05 Hgb (13.0-17.5) gm/dL Hct (39.0-53.0) % MCV (80.0-100.0) fL MCH (25.0-35.0) pg MCHC (31.0-37.0) g/dL RDW (11.5-15.5) % Plt Count (150-450) k/uL APTT 55.8 H (22.0-30.0) sec Fibrinogen 544 H (200-500) mg/dL ABG pH 7.31 L (7.35-7.45) ABG pCO2 49 H (35-45) mmHg ABG pO2 43 L* (83-108) mmHg ABG Total CO2 26 H (19-24) mmol/L ABG O2 Saturation 73.0 L (94-97) % Hemoglobin 9.6 L (13.0-17.5) gm/dL Chloride (98-107) mmol/L Carbon Dioxide (22-30) mmol/L Glucose (74-99) mg/dL POC Glucose (mg/dL) (70-110) mg/dL Calcium (8.4-10.2) mg/dL Lactate Dehydrogenase 796 H (120-246) U/L 07/14/24 07/14/24 Range/Units 14:09 18:07 Hgb (13.0-17.5) gm/dL Hct (39.0-53.0) % MCV (80.0-100.0) fL MCH (25.0-35.0) pg MCHC (31.0-37.0) g/dL RDW (11.5-15.5) % Plt Count (150-450) k/uL APTT (22.0-30.0) sec Fibrinogen (200-500) mg/dL ABG pH 7.34 L (7.35-7.45) ABG pCO2 (35-45) mmHg ABG pO2 (83-108) mmHg ABG Total CO2 (19-24) mmol/L ABG O2 Saturation 98.2 H (94-97) % Hemoglobin 9.5 L (13.0-17.5) gm/dL Chloride (98-107) mmol/L Carbon Dioxide (22-30) mmol/L Glucose (74-99) mg/dL POC Glucose (mg/dL) 124 H (70-110) mg/dL Calcium (8.4-10.2) mg/dL Lactate Dehydrogenase (120-246) U/L Microbiology - Last 24 Hours (Table) 07/11/24 04:47 Blood Culture - Preliminary Blood 07/12/24 03:15 Gram Stain - Final Sputum Sputum Culture - Final
[2024-07-14 23:15] LABS: Glucose,Whole Blood 138 mg/dL (70-110)
[2024-07-15 04:29] LABS: INR 0.9 (<1.2); Partial Thromboplastin Time 55.1 sec (22.0-30.0); Prothrombin Time 10.2 sec (10.0-12.5)
[2024-07-15 05:00] LABS: Anisocytosis Slight; Basophils % (A) 0 %; Eosinophils # (A) 0.1 k/uL (0-0.7); Eosinophils % (A) 2 %; HCT 31.2 % (39.0-53.0); HGB 9.6 gm/dL (13.0-17.5); Hypochromasia Moderate; Lymphocytes # (A) 1.3 k/uL (1.0-4.8); Lymphocytes % (A) 18 %; MCHC 30.7 g/dL (31.0-37.0); MCV 68.4 fL (80.0-100.0); Mean Platelet Volume 9.1; Microcytosis Marked; Monocytes # (A) 0.7 k/uL (0-1.0); Monocytes % (A) 9 %; Neutrophils % (A) 68 %; Platelet Count 116 k/uL (150-450); RBC 4.56 m/uL (4.30-5.90); RDW 17.2 % (11.5-15.5); WBC 7.4 k/uL (3.8-10.6)
[2024-07-15 05:01] LABS: African American GFR (CKD) >90 (>60 ml/min/1.73 sqM); Anion Gap 3 mmol/L; Blood Urea Nitrogen 14 mg/dL (9-20); Calcium 7.6 mg/dL (8.4-10.2); Carbon Dioxide 21 mmol/L (22-30); Chloride 113 mmol/L (98-107); Glucose 146 mg/dL (74-99); LDH 625 U/L (120-246); Non-African American GFR(CKD) 88 (>60 ml/min/1.73 sqM); Potassium 4.4 mmol/L (3.5-5.1); Sodium 137 mmol/L (137-145)
[2024-07-15 05:09] LABS: Glucose,Whole Blood 136 mg/dL (70-110)
[2024-07-15 05:54] LABS: ABG Base Excess -2.5 mmol/L; ABG HCO3 23 mmol/L (21-25); ABG Oxygen Saturation 95.9 % (94-97); ABG PCO2 43 mmHg (35-45); ABG PH 7.34 (7.35-7.45); ABG PO2 86 mmHg (83-108); ABG TCO2 25 mmol/L (19-24); Allen Test Performed? Yes
--- NOTE | 2024-07-15 07:39 | XR ---
EXAMINATION TYPE: XR chest 1V DATE OF EXAM: 07/15/2024 COMPARISON: NONE CLINICAL INDICATION: Male, 78 years old with history of mechanical ventilation; , TECHNIQUE: XR chest 1V views of the chest. FINDINGS: ET tube 2.3 cm above santino. Central line stable in positioning. Diffuse interstitial pattern with bi lateral consolidation and pleural effusion stable. Mild cardiomegaly. Degenerative change of the spin e. Postsurgical change overlying cervical spine. No sizable pneumothorax. IMPRESSION: 1. Stable pleural parenchymal changes most typical of CHF. Underlying pneumonia not excluded. [facility], , 07/15/2024 7:37 AM
[2024-07-15] MEDS ORDERED: FUROSEMIDE 10 MG/ML 4 ML VIAL IV SCH (09:45)
--- NOTE | 2024-07-15 10:06 | P.PN ---
Subjective Progress Note Date: 07/15/24 Principal diagnosis: Acute cardiac arrest, coronary artery disease with non-STEMI this admission, acute hypoxic respiratory failure requiring intubation, ischemic cardiomyopathy, lactic acidosis. History of hypertension, rheumatoid arthritis on Enbrel outpatient, COVID in May 2024, BPH on Flomax outpatient Patient was seen and examined yesterday with Dr. Brewer, and again this morning. Remains on mechanical ventilatory support with Impella still present. Impella currently at P2 with 2.1 L of flow, was as high as P6 overnight. Patient was restarted on IV levo again last night but is currently off levo. Patient was noticed to have no movement in the right arm, neurology has been consulted. Per cardiology note if patient has evidence of hypoxic ischemic encephalopathy, consider poor prognosis and possible palliative care. If no evidence of hypoxic ischemic encephalopathy, and if able to wean off Impella, then plan for CABG after stabilization. If failed to stabilize and not able to wean off Impella because of hemodynamic compromise, we will plan for PCI. From cardiothoracic surgery standpoint we agree with this plan. Objective - Vital Signs Vital signs: Vital Signs Temp 98.6 F 07/15/24 08:00 Pulse 61 07/15/24 09:00 Resp 23 07/15/24 09:00 BP 104/51 07/14/24 08:15 Pulse Ox 98 07/15/24 09:00 FiO2 40 07/15/24 09:16 Intake & Output 07/14/24 07/15/24 07/15/24 18:59 06:59 18:59 Intake Total 4516.150 9340.204 326.338 Output Total 2500 565 145 Balance -265.090 6945.204 181.338 Weight 106.8 kg Intake: IV 391.9 319 87 0.9 KVO @ 20 260 220 60 Sodium Bicarb (1 Meq/ml) 14.9 12.5 ml In Dextrose 5% in Water 500 ml @ Per Protocol IV DIRECTED [facility] Rx#:[id number] a line x 2 117 99 27 Intake, IV Titration 340.370 8452.204 79.338 Amount Heparin Sod,Pork in 0.45% 27.563 250 NaCl 25,000 unit In 0.45 % NaCl 1 250ml.bag @ 11. 023 UNITS/KG/HR 10 mls/hr IV .Q24H [facility] Rx#: [id number] Norepinephrine 8 mg In 2.282 20.686 12.932 Sodium Chloride 0.9% 250 ml @ 0.19 MCG/KG/MIN 33. 353 mls/hr IV .Q7H45M [facility] Rx#:[id number] Sodium Chloride 0.9% 500 600 500 ml 500 ml @ 999 mls/hr IV .Q31M [facility] Rx#:[id number] fentaNYL (PF). 1,000 mcg 53.790 50.746 16.557 In Sodium Chloride 0.9% 80 ml @ 0.5 MCG/KG/HR 4. 536 mls/hr IV .Q22H3M [facility] Rx#:[id number] propofoL 1,000 mg In 179.377 258.772 49.849 Empty Bag 1 bag @ 15 MCG/ KG/MIN 8.165 mls/hr IV . [id number] [facility] Rx#:[id number] Oral 60 Tube Feeding 455 385 70 Other 90 90 30 Output: Urine 2500 565 145 Other: Voiding Method Indwelling Catheter Indwelling Catheter Indwelling Catheter ABP, PAP, CO, CI - Last Documented Arterial Blood Pressure 171/64 - Exam CONSTITUTIONAL: Currently sedated on mechanical ventilation, no acute distress, currently off all pressors EYES: Pupils equal, round, reactive to light, normal ocular movement ENT: Moist mucous membranes without oral lesions present, 7.5 ET tube present, 28 at the lip NECK: No masses, no bruits, trachea midline RESPIRATORY: Lungs sounds diminished in the bases bilaterally. Respirations even, nonlabored on mechanical ventilation. Currently settings pressure-control mode, FiO2 40%, PEEP 5, P 0.8, respiratory rate 18 CARDIOVASCULAR: S1, S2 present. Slow but regular rate and rhythm, sinus bradycardia on telemetry. Palpable peripheral pulses bilaterally. Trace generalized edema present. GASTROINTESTINAL: Abdomen soft, nontender, nondistended without masses or organomegaly noted. There is no rebound or guarding present. Active bowel sounds present 4 quadrants, OG tube present, tube feeding infusing at 35 mL/h GENITOURINARY: Mckeon present draining clear, yellow urine, output 40 to 45 mL/h INTEGUMENTARY: Skin is warm and dry NEUROLOGIC: Sedated on mechanical ventilation, patient does have a cough and gag, not tracking, gaze deviated upward, no squeezing of hands although patient remains on sedation currently INVASIVE LINES: Left subclavian triple-lumen central line, right radial arterial line present. Right groin Impella present, currently set at P2 with 2.1 L/min flow - Allied health notes Allied health notes reviewed: nursing - Labs CBC & Chem 7: 07/15/24 04:07 07/15/24 04:07 Labs: Abnormal Lab Results - Last 24 Hours (Table) 07/14/24 07/14/24 07/14/24 Range/Units 12:01 13:00 13:00 Hgb (13.0-17.5) gm/dL Hct (39.0-53.0) % MCV (80.0-100.0) fL MCH (25.0-35.0) pg MCHC (31.0-37.0) g/dL RDW (11.5-15.5) % Plt Count (150-450) k/uL APTT 55.8 H (22.0-30.0) sec Fibrinogen 544 H (200-500) mg/dL ABG pH (7.35-7.45) ABG pCO2 (35-45) mmHg ABG pO2 (83-108) mmHg ABG Total CO2 (19-24) mmol/L ABG O2 Saturation (94-97) % Hemoglobin (13.0-17.5) gm/dL Chloride (98-107) mmol/L Carbon Dioxide (22-30) mmol/L Glucose (74-99) mg/dL POC Glucose (mg/dL) 134 H (70-110) mg/dL Calcium (8.4-10.2) mg/dL Lactate Dehydrogenase 796 H (120-246) U/L 07/14/24 07/14/24 07/14/24 Range/Units 14:05 14:09 18:07 Hgb (13.0-17.5) gm/dL Hct (39.0-53.0) % MCV (80.0-100.0) fL MCH (25.0-35.0) pg MCHC (31.0-37.0) g/dL RDW (11.5-15.5) % Plt Count (150-450) k/uL APTT (22.0-30.0) sec Fibrinogen (200-500) mg/dL ABG pH 7.31 L 7.34 L (7.35-7.45) ABG pCO2 49 H (35-45) mmHg ABG pO2 43 L* (83-108) mmHg ABG Total CO2 26 H (19-24) mmol/L ABG O2 Saturation 73.0 L 98.2 H (94-97) % Hemoglobin 9.6 L 9.5 L (13.0-17.5) gm/dL Chloride (98-107) mmol/L Carbon Dioxide (22-30) mmol/L Glucose (74-99) mg/dL POC Glucose (mg/dL) 124 H (70-110) mg/dL Calcium (8.4-10.2) mg/dL Lactate Dehydrogenase (120-246) U/L 07/14/24 07/14/24 07/14/24 Range/Units 20:30 20:30 23:13 Hgb (13.0-17.5) gm/dL Hct (39.0-53.0) % MCV (80.0-100.0) fL MCH (25.0-35.0) pg MCHC (31.0-37.0) g/dL RDW (11.5-15.5) % Plt Count (150-450) k/uL APTT (22.0-30.0) sec Fibrinogen 563 H (200-500) mg/dL ABG pH (7.35-7.45) ABG pCO2 (35-45) mmHg ABG pO2 (83-108) mmHg ABG Total CO2 (19-24) mmol/L ABG O2 Saturation (94-97) % Hemoglobin (13.0-17.5) gm/dL Chloride (98-107) mmol/L Carbon Dioxide (22-30) mmol/L Glucose (74-99) mg/dL POC Glucose (mg/dL) 138 H (70-110) mg/dL Calcium (8.4-10.2) mg/dL Lactate Dehydrogenase 691 H (120-246) U/L 07/15/24 07/15/24 07/15/24 Range/Units 04:07 04:07 04:07 Hgb 9.6 L (13.0-17.5) gm/dL Hct 31.2 L (39.0-53.0) % MCV 68.4 L (80.0-100.0) fL MCH 21.0 L (25.0-35.0) pg MCHC 30.7 L (31.0-37.0) g/dL RDW 17.2 H (11.5-15.5) % Plt Count 116 L (150-450) k/uL APTT 55.1 H (22.0-30.0) sec Fibrinogen 560 H (200-500) mg/dL ABG pH (7.35-7.45) ABG pCO2 (35-45) mmHg ABG pO2 (83-108) mmHg ABG Total CO2 (19-24) mmol/L ABG O2 Saturation (94-97) % Hemoglobin (13.0-17.5) gm/dL Chloride 113 H (98-107) mmol/L Carbon Dioxide 21 L (22-30) mmol/L Glucose 146 H (74-99) mg/dL POC Glucose (mg/dL) (70-110) mg/dL Calcium 7.6 L (8.4-10.2) mg/dL Lactate Dehydrogenase 625 H (120-246) U/L 07/15/24 07/15/24 Range/Units 05:07 05:50 Hgb (13.0-17.5) gm/dL Hct (39.0-53.0) % MCV (80.0-100.0) fL MCH (25.0-35.0) pg MCHC (31.0-37.0) g/dL RDW (11.5-15.5) % Plt Count (150-450) k/uL APTT (22.0-30.0) sec Fibrinogen (200-500) mg/dL ABG pH 7.34 L (7.35-7.45) ABG pCO2 (35-45) mmHg ABG pO2 (83-108) mmHg ABG Total CO2 25 H (19-24) mmol/L ABG O2 Saturation (94-97) % Hemoglobin 9.2 L (13.0-17.5) gm/dL Chloride (98-107) mmol/L Carbon Dioxide (22-30) mmol/L Glucose (74-99) mg/dL POC Glucose (mg/dL) 136 H (70-110) mg/dL Calcium (8.4-10.2) mg/dL Lactate Dehydrogenase (120-246) U/L Microbiology - Last 24 Hours (Table) 07/11/24 04:47 Blood Culture - Preliminary Blood 07/12/24 03:15 Gram Stain - Final Sputum Sputum Culture - Final - Imaging and Cardiology Chest x-ray: report reviewed, image reviewed Assessment and Plan Assessment: Acute cardiac arrest, 5 minutes of downtime with return of spontaneous circulation Coronary artery disease, non-STEMI this admission Acute hypoxic respiratory failure requiring intubation Ischemic cardiomyopathy Lactic acidosis, resolved History of hypertension, was hypotensive on admission with pressor use, resolved Rheumatoid arthritis, on Enbrel outpatient COVID in May 2024 BPH, on Flomax outpatient Plan: Await neurological input Wean from mechanical ventilation and circulatory support if able Continue to maximize medical therapy with aspirin, statin. Recommend beta- kaela therapy when able to tolerate Ventilator management per compliance mgr Impella management per cardiology Will continue to follow daily but will not write daily notes More recommendations to follow based on patient's neurological status
--- NOTE | 2024-07-15 10:48 | CA ---
Transthoracic Echo Report Name: Mookie He Age: 78 Gender: M : 1945 Exam Date: 07/14/2024 16:24 Exam Location: [facility] Echo Ht (in): 73 Wt (lb): 242 Ordering Physician: Con Cotto MD Attending/Referring Phys: Sound Truck Operator Tonya Lebron RDCS Procedure CPT: Indications: LVEF and Impella position Cardiac Hx: Technical Quality: Fair Contrast 1: Total Dose (mL): Contrast 2: Total Dose (mL): MEASUREMENTS (Male / Female) Normal Values 2D ECHO LV Diastolic Diameter PLAX 3.9 cm 4.2 - 5.9 / 3.9 - 5.3 cm LV Systolic Diameter PLAX 3.1 cm IVS Diastolic Thickness 1.9 cm 0.6 - 1.0 / 0.6 - 0.9 cm LVPW Diastolic Thickness 1.7 cm 0.6 - 1.0 / 0.6 - 0.9 cm LV Relative Wall Thickness 0.9 LV Diastolic Volume MOD BP 153.5 cm??? 67 - 155 / 56 - 104 cm??? LV Systolic Volume MOD BP 83.0 cm??? 22 - 58 / 19 - 49 cm??? LV Ejection Fraction MOD BP 45.9 % >= 55 % LV Diastolic Volume MOD 4C 133.0 cm??? LV Systolic Volume MOD 4C 50.4 cm??? LV Ejection Fraction MOD 4C 62.1 % LV Diastolic Length 4C 8.3 cm LV Systolic Length 4C 6.3 cm LV Diastolic Volume MOD 2C 162.8 cm??? LV Systolic Volume MOD 2C 116.7 cm??? LV Ejection Fraction MOD 2C 28.3 % LV Diastolic Length 2C 9.2 cm LV Systolic Length 2C 7.4 cm M-MODE LV Diastolic Diameter MM 6.4 cm 4.2 - 5.9 / 3.9 - 5.3 cm LV Systolic Diameter MM 4.2 cm IVS Diastolic Thickness MM 1.7 cm 0.6 - 1.0 / 0.6 - 0.9 cm LVPW Diastolic Thickness MM 1.7 cm 0.6 - 1.0 / 0.6 - 0.9 cm LV Relative Wall Thickness MM 0.5 0.24 - 0.42 / 0.22 - 0.42 LV Mass Index MM 242.6 g/m??? 49 - 115 / 43 - 95 g/m??? FINDINGS Left Ventricle Severely increased left ventricular mass. Severely increased septal wall thickness. Severely increased posterior wall thickness. Mildly decreased midwall fractional shorteningSeverely increased left ventricular relative wall thickness. Mildly decreased left ventricular ejection fraction. Left ventricular ejection fraction is estimated at 40- %. LVAD noted in place. Right Ventricle Right Atrium Left Atrium Mitral Valve Aortic Valve Tricuspid Valve Pulmonic Valve Pericardium No pericardial effusion. Aorta CONCLUSIONS Moderate LV systolic dysfunction with an ejection fraction of 40% Left ventricular assist device is in place Previewed by: Dr. Sachin Rueda MD (Electronically Signed) Final Date: 15 July 2024 10:47
[2024-07-15] MEDS: NITROGLYCERIN-D5W PMX 50 MG in DEXTROSE/WATER 1 250ML.BAG IV SCH (10:53)
[2024-07-15] MEDS: FUROSEMIDE 10 MG/ML 4 ML VIAL IV STA (11:09)
--- NOTE | 2024-07-15 11:15 | P.PN ---
Subjective Progress Note Date: 07/15/24 Patient seen and examined today. Patient he is on levophed 0.04 mcg/kg/h. Propofol at 30 mcg/kg/min and fentanyl at 1 mcg/kg/h. Impella= P4. Tube feeds at target 35. General: intubated, sedated HEENT: normocephalic, atraumatic, no tracheal deviation Respiratory: symmetric chest rise, no cyanosis, ventilator dependent CVS: perfusing all extremities, no distal gangrene, trace pitting edema GI: soft, ND : no SPT, no CVAT, heard is present Neuro: sedated Hospital course: Patient is a 78-year-old male with PMH of rheumatoid arthritis, hypertension and BPH was brought to the emergency department via EMS for cardiopulmonary arrest. His initial laboratory evaluation shows WBC of 19.7, hemoglobin 14.6, MCV of 74.8, platelet count 2 8, sodium 138, potassium 4.3, chloride 117, bicarb 13, BUN 18, creatinine 1.8. His cardiac troponin has been trending upward from 0.588--->14.9. Patient was recently seen at the hospital for the complaint of chest pain. Patient was diagnosed with type II MT slightly with elevated troponins likely secondary to COVID-19 pneumonitis. Echocardiogram showed LVEF of 55% and moderate pulmonary hypertension. Viral panel negative. Chest x-ray interpreted independently shows diffuse patchy infiltrate with groundglass opacities and bilateral pleural effusion. Brain CT shows no acute intracranial process. Chest CTA is negative for pulmonary embolism and patchy opacities throughout both lungs with small bilateral pleural effusions. EKG interpreted independently shows sinus bradycardia with a regular branch block. T wave inversions in anteroseptal and lateral leads. Echocardiogram shows LVEF of 25 to 30% and ischemic cardiomyopathy with apical hypokinesis. Pertinent Labs: WBC 7.4, hemoglobin 9.6, platelet count 116, fibrinogen 560, sodium 137, potassium 4.4, chloride 113, bicarb 21, glucose 146, LDH 625 Pertinent imaging: Chest x-ray independently interpreted continues to demonstrate bilateral pleural effusions similar to yesterday Assessment/Plan: Patient is a 78-year-old male with PMH of rheumatoid arthritis, hypertension and BPH was brought to the emergency department via EMS for cardiopulmonary arrest who is currently intubated and admitted to the medical ICU. #Out of the hospital cardiopulmonary arrest #Elevated troponin, secondary to NSTEMI #Cardiogenic Shock #ischemic cardiomyopathy #Recent history of atypical chest pain and COVID-19 pneumonitis #Acute encephalopathy, likely metabolic Cardiology on board: Plan is to wean Impella as much as possible, doing neurological assessment, and decide between CABG versus staged PCI Echocardiogram as above Heparin drip, monitor APTT, monitor for bleeding Aspirin 81 mg p.o. daily, statin 40 mg p.o. at bedtime Morphine 2 mg IV every 2 hour as needed for chest pain Continue cardiac monitoring Lipid panel done on 05/14/2024 TSH 7.63, free T4 0.8 Pulmonology consulted; note reviewed Continue weaning off on Impella support IV Lasix 40 mg once today Continue with holiday sedation and weaning trials Patient off of pressors Neurology also consulted, CT head and EEG pending #Normocytic anemia in the setting of Impella Hemoglobin 9.6, LDH 625, fibrinogen 560 Continue to monitor CBC #Anion gap metabolic acidosis secondary to lactic acid, resolved #Euthyroid sick syndrome secondary above TSH 7.63, free T4 - 0.8 #Hypermagnesemia, resolved Mag 2.0 Continue monitor magnesium level Chronic conditions: BPH: Resume Flomax Hypertension: Hold nifedipine DVT prophylaxis: Heparin drip CODE STATUS: DNR/DNI Anticipated discharge place: Pending clinical course I have seen and evaluated the patient today. Discussed with the resident and agree with the residents finding and plan as documented in the resident's note. Changes highlighted in blue font. Objective - Vital Signs Vital signs: Vital Signs Temp 98.6 F 07/15/24 08:00 Pulse 61 07/15/24 10:00 Resp 18 07/15/24 10:00 BP 104/51 07/14/24 08:15 Pulse Ox 99 07/15/24 10:00 FiO2 40 07/15/24 09:16 Intake & Output 07/14/24 07/15/24 07/15/24 18:59 06:59 18:59 Intake Total 0747.898 0289.204 435.499 Output Total 2500 565 195 Balance -438.741 8530.204 240.499 Weight 106.8 kg 106.8 kg Intake: IV 391.9 319 116 0.9 KVO @ 20 260 220 80 Sodium Bicarb (1 Meq/ml) 14.9 12.5 ml In Dextrose 5% in Water 500 ml @ Per Protocol IV DIRECTED [facility] Rx#:[id number] a line x 2 117 99 36 Intake, IV Titration 010.342 7747.204 89.499 Amount Heparin Sod,Pork in 0.45% 27.563 250 NaCl 25,000 unit In 0.45 % NaCl 1 250ml.bag @ 11. 023 UNITS/KG/HR 10 mls/hr IV .Q24H [facility] Rx#: [id number] Norepinephrine 8 mg In 2.282 20.686 12.932 Sodium Chloride 0.9% 250 ml @ 0.19 MCG/KG/MIN 33. 353 mls/hr IV .Q7H45M [facility] Rx#:[id number] Sodium Chloride 0.9% 500 600 500 ml 500 ml @ 999 mls/hr IV .Q31M [facility] Rx#:[id number] fentaNYL (PF). 1,000 mcg 53.790 50.746 16.557 In Sodium Chloride 0.9% 80 ml @ 0.5 MCG/KG/HR 4. 536 mls/hr IV .Q22H3M [facility] Rx#:[id number] propofoL 1,000 mg In 179.377 258.772 60.010 Empty Bag 1 bag @ 15 MCG/ KG/MIN 8.165 mls/hr IV . [id number] [facility] Rx#:[id number] Oral 60 Tube Feeding 455 385 140 Other 90 90 30 Output: Urine 2500 565 195 Other: Voiding Method Indwelling Catheter Indwelling Catheter Indwelling Catheter ABP, PAP, CO, CI - Last Documented Arterial Blood Pressure 137/45 - Labs CBC & Chem 7: 07/15/24 04:07 07/15/24 04:07 Labs: Abnormal Lab Results - Last 24 Hours (Table) 07/14/24 07/14/24 07/14/24 Range/Units 12:01 13:00 13:00 Hgb (13.0-17.5) gm/dL Hct (39.0-53.0) % MCV (80.0-100.0) fL MCH (25.0-35.0) pg MCHC (31.0-37.0) g/dL RDW (11.5-15.5) % Plt Count (150-450) k/uL APTT 55.8 H (22.0-30.0) sec Fibrinogen 544 H (200-500) mg/dL ABG pH (7.35-7.45) ABG pCO2 (35-45) mmHg ABG pO2 (83-108) mmHg ABG Total CO2 (19-24) mmol/L ABG O2 Saturation (94-97) % Hemoglobin (13.0-17.5) gm/dL Chloride (98-107) mmol/L Carbon Dioxide (22-30) mmol/L Glucose (74-99) mg/dL POC Glucose (mg/dL) 134 H (70-110) mg/dL Calcium (8.4-10.2) mg/dL Lactate Dehydrogenase 796 H (120-246) U/L 07/14/24 07/14/24 07/14/24 Range/Units 14:05 14:09 18:07 Hgb (13.0-17.5) gm/dL Hct (39.0-53.0) % MCV (80.0-100.0) fL MCH (25.0-35.0) pg MCHC (31.0-37.0) g/dL RDW (11.5-15.5) % Plt Count (150-450) k/uL APTT (22.0-30.0) sec Fibrinogen (200-500) mg/dL ABG pH 7.31 L 7.34 L (7.35-7.45) ABG pCO2 49 H (35-45) mmHg ABG pO2 43 L* (83-108) mmHg ABG Total CO2 26 H (19-24) mmol/L ABG O2 Saturation 73.0 L 98.2 H (94-97) % Hemoglobin 9.6 L 9.5 L (13.0-17.5) gm/dL Chloride (98-107) mmol/L Carbon Dioxide (22-30) mmol/L Glucose (74-99) mg/dL POC Glucose (mg/dL) 124 H (70-110) mg/dL Calcium (8.4-10.2) mg/dL Lactate Dehydrogenase (120-246) U/L 07/14/24 07/14/24 07/14/24 Range/Units 20:30 20:30 23:13 Hgb (13.0-17.5) gm/dL Hct (39.0-53.0) % MCV (80.0-100.0) fL MCH (25.0-35.0) pg MCHC (31.0-37.0) g/dL RDW (11.5-15.5) % Plt Count (150-450) k/uL APTT (22.0-30.0) sec Fibrinogen 563 H (200-500) mg/dL ABG pH (7.35-7.45) ABG pCO2 (35-45) mmHg ABG pO2 (83-108) mmHg ABG Total CO2 (19-24) mmol/L ABG O2 Saturation (94-97) % Hemoglobin (13.0-17.5) gm/dL Chloride (98-107) mmol/L Carbon Dioxide (22-30) mmol/L Glucose (74-99) mg/dL POC Glucose (mg/dL) 138 H (70-110) mg/dL Calcium (8.4-10.2) mg/dL Lactate Dehydrogenase 691 H (120-246) U/L 07/15/24 07/15/24 07/15/24 Range/Units 04:07 04:07 04:07 Hgb 9.6 L (13.0-17.5) gm/dL Hct 31.2 L (39.0-53.0) % MCV 68.4 L (80.0-100.0) fL MCH 21.0 L (25.0-35.0) pg MCHC 30.7 L (31.0-37.0) g/dL RDW 17.2 H (11.5-15.5) % Plt Count 116 L (150-450) k/uL APTT 55.1 H (22.0-30.0) sec Fibrinogen 560 H (200-500) mg/dL ABG pH (7.35-7.45) ABG pCO2 (35-45) mmHg ABG pO2 (83-108) mmHg ABG Total CO2 (19-24) mmol/L ABG O2 Saturation (94-97) % Hemoglobin (13.0-17.5) gm/dL Chloride 113 H (98-107) mmol/L Carbon Dioxide 21 L (22-30) mmol/L Glucose 146 H (74-99) mg/dL POC Glucose (mg/dL) (70-110) mg/dL Calcium 7.6 L (8.4-10.2) mg/dL Lactate Dehydrogenase 625 H (120-246) U/L 07/15/24 07/15/24 Range/Units 05:07 05:50 Hgb (13.0-17.5) gm/dL Hct (39.0-53.0) % MCV (80.0-100.0) fL MCH (25.0-35.0) pg MCHC (31.0-37.0) g/dL RDW (11.5-15.5) % Plt Count (150-450) k/uL APTT (22.0-30.0) sec Fibrinogen (200-500) mg/dL ABG pH 7.34 L (7.35-7.45) ABG pCO2 (35-45) mmHg ABG pO2 (83-108) mmHg ABG Total CO2 25 H (19-24) mmol/L ABG O2 Saturation (94-97) % Hemoglobin 9.2 L (13.0-17.5) gm/dL Chloride (98-107) mmol/L Carbon Dioxide (22-30) mmol/L Glucose (74-99) mg/dL POC Glucose (mg/dL) 136 H (70-110) mg/dL Calcium (8.4-10.2) mg/dL Lactate Dehydrogenase (120-246) U/L Microbiology - Last 24 Hours (Table) 07/11/24 04:47 Blood Culture - Preliminary Blood 07/12/24 03:15 Gram Stain - Final Sputum Sputum Culture - Final
--- NOTE | 2024-07-15 11:53 | P.PN ---
Subjective Progress Note Date: 07/15/24 This is a 78-year-old male patient with a history of rheumatoid arthritis, hypertension, BPH. He was recently here in May for atypical chest pain and COVID-19 pneumonitis. Discharged home on May 15, 2024. Since that time he had been doing well. Pain the patient was having a 2 to 3-day history of worsening shortness of breath. He was active yesterday and cleaning out his garage and did complain of shortness of breath and some chest discomfort. He developed worsening shortness of breath throughout the night. EMS was called and the arrival the patient had collapse. He was pulseless and CPR was started taking approximately 5 minutes until return of spontaneous circulation. He was brought in and being assisted with a bag valve mask device and a pulse ox of 74 and then intubated in the emergency department. He was brought up to the intensive care unit. He is currently intubated, sedated on the mechanical ventilator at a rate of 24, tidal volume 450, FiO2 90% and a PEEP of 10. Blood gases had revealed a PaO2 of 70, pCO2 of 62 and a pH of 7.14 on 100% FiO2. He is on fentanyl at 1.5 mcg/kg/h. He is currently on a heparin drip per weight- based protocol. Norepinephrine at 13.5 mcg/min. Propofol at 30 mcg/kg/min. CT scan of the brain revealed no acute findings. CT angiogram revealed no evidence of pulmonary embolism. There is small bilateral effusions. Some patchy airspace opacity/consolidation throughout both lungs. Mild groundglass opacities. White count 19.7. Hemoglobin 14.6. Platelets 208. Sodium 138. Potassium 4.3. Bicarb 13. BUN 18. Creatinine 1.13. Glucose 313. Troponin 0.588. proBNP 2770. TSH 7.36. Viral screen is negative. The patient is seen today July 12, 2024 in follow-up in the intensive care unit. He remains intubated sedated on the mechanical ventilator. Currently in assist-control mode with a rate of 30, tidal volume 450, FiO2 40% and a PEEP of 10. Morning blood gases revealed a PaO2 of 163, pCO2 of 26 and a pH of 7.49 and 50% FiO2. The PEEP will be decreased to 5. He is currently on cefazolin. Remains on bronchodilators. He is continued on a heparin drip per weight-based protocol. Norepinephrine at 0.03 mcg/kg/min. Propofol at 35 mcg/kg/min. Fentanyl drip at 1.25 mcg/kg/h. White count 9.6. Hemoglobin 11.4. Platelets 166. Sodium 136. Potassium 3.9. Bicarb 18. BUN 29. Creatinine 1.47. Glucose 114. Continue tube feedings of vital AF at a rate of 10 with a goal of 57. Will be on hold for cardiac catheterization today 07/13/2024, the patient is being seen for a follow-up. The patient remains intubated on the mechanical ventilator. He requires mechanical support for his cardiogenic shock postcardiac arrest and the patient is an Impella with a P7 support and a 3.1 L/min of augmentation. The patient remains on sedatives and the patient is currently on propofol the patient is 0.7. On the mechanical ventilator at a rate of 30, tidal volume of 450, FiO2 40% with PEEP of 5. Blood gas showed pH of 7.46 with a pCO2 of 27 and pO2 of 97. Chest x-ray shows cardiomegaly without any acute abnormalities. Orotracheal tubes are in good perfusion. The patient is currently on KVO IV fluids. The patient is on no pressors and the patient was taken off norepinephrine and is producing adequate amount of urine output in the order of 50 cc an hour. He remains on IV heparin. Creatinine is improved and the patient's creatinine peaked at 1.47 and currently is down to 1.08. He has a left subclavian triple-lumen catheter in place. Engineering Assistant on the case and the patient underwent a cardiac catheterization on 07/12/2024 and the patient was found to have extremely calcified right and left coronary system with evidence of triple-vessel coronary artery disease and severely elevated left ventricular end-diastolic pressure. The white cell count at 7.9 with a hemoglobin 10.8 and a platelet count of 123. Sodium levels at 135, bicarbonate 18, BUN 27 with a creatinine of 1.08. LDH level is at 984. The echocardiogram was completed and the patient was found to have severe impairment of the LV function with an ejection fraction of 25 to 30%. There is also severe cardiomyopathy with wall motion abnormalities involving the apical area that was quite hypokinetic. The patient remains on aspirin. The patient remains on statins and the patient is currently on Lipitor 40 mg p.o. daily. Remains on IV heparin. He is also on vital AF for enteral feeding and nutritional support. Engineering Assistant on the case. Cardiothoracic surgery was also involved in his care. The patient was deemed a high surgical risk for coronary intervention and bypass. On 07/14/2024, the patient is being seen for a follow-up. The patient remains sedated and the patient is currently on a combination of propofol running at 40 mcg/kg/min and fentanyl at 0.75 mcg/kg/h. The patient remains well sedated on m echanical ventilator and Impella for mechanical support for cardiogenic shock. This morning, the patient's Impella has been switched to P4 support with an augmentation of 2.5 L/min. The patient remains off pressors. Is producing adequate amount of urine output. Fluid balance is +1 L over the past 24 hours. He is hemolyzing and the hemoglobin is currently down to 9.9. Most recent LDH is at 946. At the same time, the patient remains on the mechanical ventilator. He is on assist-control mode with rate of 18, tidal volume of 450, FiO2 40% with a PEEP of 5. The blood gas from today shows a pH of 7.33 with a pCO2 of 41 and pO2 of 97. Chest x-ray is consistent with CHF/increased incisional markings consistent with heart failure. Orotracheal tube is in a good location. The patient has diffuse interstitial pattern bilaterally along with cardiomegaly and he has developed some small bilateral pleural effusions worse on the left. He remains on IV heparin. Remains on enteral feeding for additional support and the patient is currently on vital AF at rate of 35 cc an hour. IV fluids are currently at KVO. The patient's cardiac rhythm is sinus. The white cell count is 6.7 with a hemoglobin 9.9 and a platelet count of 106. The BUN is 17 with a creatinine of 0.8 and a sodium levels at 137, bicarb is at 22. 07/15/2024, the patient is being seen for a follow-up. The patient has signs of anoxic encephalopathy. The patient was given sedation holiday yesterday and he did not demonstrate adequate neurologic recovery. It was noted that he was not moving his right side effectively compared to the left. Based on that, the patient was placed back on propofol which is currently running at 40 mcg/kg/min. Attempts to wean off his Impella failed yesterday the patient became hypot ensive. The patient was given IV fluids and norepinephrine and the patient is currently off norepinephrine. He has Impella is augmenting at P4 level with 2.5 L/min augmentation. Fluid balance is +600 cc over the past 24 hours and the patient is producing urine output in the order of 30 to 40 cc an hour. No diuretics for now. Chest x-ray still showing CHF and bilateral pleural effusion right more than left. Remains on mechanical ventilator, assist-control mode with rate of 16, tidal volume of 450, FiO2 40% with a PEEP of 5. pH is 7.34 with a pCO2 of 43 and pO2 of 86. He is doing abdominal breathing and based on that, the patient was switched to pressure control mode of mechanical vent ilation. He is on vital AF at a rate of 35 cc an hour. The white cell count is 7.4, hemoglobin 9.6, his platelet count is at 116. LDH level is 625. Electrolytes are all within normal limits with a BUN of 14 and a creatinine of 0.7. Noted the patient's platelet count has dropped during this current admission and the patient remains on IV heparin. A limited echocardiogram was done yesterday and the patient was found to have impaired LV function with an estimated ejection fraction of around 40%. The patient also had segmental wall motion abnormalities. There was moderate LV dysfunction based on the echocardiogram. Objective - Vital Signs Vital signs: Vital Signs Temp 98.6 F 07/15/24 08:00 Pulse 56 L 07/15/24 08:27 Resp 18 07/15/24 08:00 BP 104/51 07/14/24 08:15 Pulse Ox 98 07/15/24 08:00 FiO2 40 07/15/24 08:09 Intake & Output 07/14/24 07/15/24 07/15/24 18:59 06:59 18:59 Intake Total 1503.507 8989.204 187.489 Output Total 2500 565 105 Balance -789.084 8696.204 82.489 Weight 106.8 kg Intake: IV 391.9 319 58 0.9 KVO @ 20 260 220 40 Sodium Bicarb (1 Meq/ml) 14.9 12.5 ml In Dextrose 5% in Water 500 ml @ Per Protocol IV DIRECTED [facility] Rx#:[id number] a line x 2 117 99 18 Intake, IV Titration 961.549 5660.204 29.489 Amount Heparin Sod,Pork in 0.45% 27.563 250 NaCl 25,000 unit In 0.45 % NaCl 1 250ml.bag @ 11. 023 UNITS/KG/HR 10 mls/hr IV .Q24H [facility] Rx#: [id number] Norepinephrine 8 mg In 2.282 20.686 12.932 Sodium Chloride 0.9% 250 ml @ 0.19 MCG/KG/MIN 33. 353 mls/hr IV .Q7H45M [facility] Rx#:[id number] Sodium Chloride 0.9% 500 600 500 ml 500 ml @ 999 mls/hr IV .Q31M [facility] Rx#:[id number] fentaNYL (PF). 1,000 mcg 53.790 50.746 16.557 In Sodium Chloride 0.9% 80 ml @ 0.5 MCG/KG/HR 4. 536 mls/hr IV .Q22H3M [facility] Rx#:[id number] propofoL 1,000 mg In 179.377 258.772 Empty Bag 1 bag @ 15 MCG/ KG/MIN 8.165 mls/hr IV . [id number] [facility] Rx#:[id number] Tube Feeding 455 385 70 Other 90 90 30 Output: Urine 2500 565 105 Other: Voiding Method Indwelling Catheter Indwelling Catheter Indwelling Catheter ABP, PAP, CO, CI - Last Documented Arterial Blood Pressure 121/43 - Exam GENERAL EXAM: Intubated, sedated 78-year-old male, on the mechanical ventilator, in no apparent distress. Patient is currently on a combination of propofol and fentanyl. HEAD: Normocephalic. EYES: Normal reaction of pupils, equal size. NOSE: Clear with pink turbinates. THROAT: Oral endotracheal and gastric tube secured in place. No erythema or exudates. NECK: No masses, no JVD. CHEST: No chest wall deformity. LUNGS: Equal air entry with bilateral scattered rhonchi. CVS: S1 and S2 normal with no audible murmur, regular rhythm. ABDOMEN: No hepatosplenomegaly, normal bowel sounds, no guarding or rigidity. SPINE: No scoliosis or deformity SKIN: No rashes CENTRAL NERVOUS SYSTEM: Sedated, tone is normal in all 4 extremities. EXTREMITIES: There is no peripheral edema. No clubbing, no cyanosis. Peripheral pulses diminished in the lower extremities although there is still some weak pulses. Extremities are cold. No mottling. No cyanosis. - Labs CBC & Chem 7: 07/15/24 04:07 07/15/24 04:07 Labs: Abnormal Lab Results - Last 24 Hours (Table) 07/14/24 07/14/24 07/14/24 Range/Units 09:40 09:46 12:01 Hgb (13.0-17.5) gm/dL Hct (39.0-53.0) % MCV (80.0-100.0) fL MCH (25.0-35.0) pg MCHC (31.0-37.0) g/dL RDW (11.5-15.5) % Plt Count (150-450) k/uL APTT (22.0-30.0) sec Fibrinogen (200-500) mg/dL ABG pH 7.29 L 7.33 L (7.35-7.45) ABG pCO2 49 H (35-45) mmHg ABG pO2 43 L* (83-108) mmHg ABG Total CO2 25 H (19-24) mmol/L ABG O2 Saturation 70.9 L 97.5 H (94-97) % Hemoglobin 9.6 L 9.6 L (13.0-17.5) gm/dL Chloride (98-107) mmol/L Carbon Dioxide (22-30) mmol/L Glucose (74-99) mg/dL POC Glucose (mg/dL) 134 H (70-110) mg/dL Calcium (8.4-10.2) mg/dL Lactate Dehydrogenase (120-246) U/L 07/14/24 07/14/24 07/14/24 Range/Units 13:00 13:00 14:05 Hgb (13.0-17.5) gm/dL Hct (39.0-53.0) % MCV (80.0-100.0) fL MCH (25.0-35.0) pg MCHC (31.0-37.0) g/dL RDW (11.5-15.5) % Plt Count (150-450) k/uL APTT 55.8 H (22.0-30.0) sec Fibrinogen 544 H (200-500) mg/dL ABG pH 7.31 L (7.35-7.45) ABG pCO2 49 H (35-45) mmHg ABG pO2 43 L* (83-108) mmHg ABG Total CO2 26 H (19-24) mmol/L ABG O2 Saturation 73.0 L (94-97) % Hemoglobin 9.6 L (13.0-17.5) gm/dL Chloride (98-107) mmol/L Carbon Dioxide (22-30) mmol/L Glucose (74-99) mg/dL POC Glucose (mg/dL) (70-110) mg/dL Calcium (8.4-10.2) mg/dL Lactate Dehydrogenase 796 H (120-246) U/L 07/14/24 07/14/24 07/14/24 Range/Units 14:09 18:07 20:30 Hgb (13.0-17.5) gm/dL Hct (39.0-53.0) % MCV (80.0-100.0) fL MCH (25.0-35.0) pg MCHC (31.0-37.0) g/dL RDW (11.5-15.5) % Plt Count (150-450) k/uL APTT (22.0-30.0) sec Fibrinogen 563 H (200-500) mg/dL ABG pH 7.34 L (7.35-7.45) ABG pCO2 (35-45) mmHg ABG pO2 (83-108) mmHg ABG Total CO2 (19-24) mmol/L ABG O2 Saturation 98.2 H (94-97) % Hemoglobin 9.5 L (13.0-17.5) gm/dL Chloride (98-107) mmol/L Carbon Dioxide (22-30) mmol/L Glucose (74-99) mg/dL POC Glucose (mg/dL) 124 H (70-110) mg/dL Calcium (8.4-10.2) mg/dL Lactate Dehydrogenase (120-246) U/L 07/14/24 07/14/24 07/15/24 Range/Units 20:30 23:13 04:07 Hgb (13.0-17.5) gm/dL Hct (39.0-53.0) % MCV (80.0-100.0) fL MCH (25.0-35.0) pg MCHC (31.0-37.0) g/dL RDW (11.5-15.5) % Plt Count (150-450) k/uL APTT 55.1 H (22.0-30.0) sec Fibrinogen 560 H (200-500) mg/dL ABG pH (7.35-7.45) ABG pCO2 (35-45) mmHg ABG pO2 (83-108) mmHg ABG Total CO2 (19-24) mmol/L ABG O2 Saturation (94-97) % Hemoglobin (13.0-17.5) gm/dL Chloride (98-107) mmol/L Carbon Dioxide (22-30) mmol/L Glucose (74-99) mg/dL POC Glucose (mg/dL) 138 H (70-110) mg/dL Calcium (8.4-10.2) mg/dL Lactate Dehydrogenase 691 H (120-246) U/L 07/15/24 07/15/24 07/15/24 Range/Units 04:07 04:07 05:07 Hgb 9.6 L (13.0-17.5) gm/dL Hct 31.2 L (39.0-53.0) % MCV 68.4 L (80.0-100.0) fL MCH 21.0 L (25.0-35.0) pg MCHC 30.7 L (31.0-37.0) g/dL RDW 17.2 H (11.5-15.5) % Plt Count 116 L (150-450) k/uL APTT (22.0-30.0) sec Fibrinogen (200-500) mg/dL ABG pH (7.35-7.45) ABG pCO2 (35-45) mmHg ABG pO2 (83-108) mmHg ABG Total CO2 (19-24) mmol/L ABG O2 Saturation (94-97) % Hemoglobin (13.0-17.5) gm/dL Chloride 113 H (98-107) mmol/L Carbon Dioxide 21 L (22-30) mmol/L Glucose 146 H (74-99) mg/dL POC Glucose (mg/dL) 136 H (70-110) mg/dL Calcium 7.6 L (8.4-10.2) mg/dL Lactate Dehydrogenase 625 H (120-246) U/L 07/15/24 Range/Units 05:50 Hgb (13.0-17.5) gm/dL Hct (39.0-53.0) % MCV (80.0-100.0) fL MCH (25.0-35.0) pg MCHC (31.0-37.0) g/dL RDW (11.5-15.5) % Plt Count (150-450) k/uL APTT (22.0-30.0) sec Fibrinogen (200-500) mg/dL ABG pH 7.34 L (7.35-7.45) ABG pCO2 (35-45) mmHg ABG pO2 (83-108) mmHg ABG Total CO2 25 H (19-24) mmol/L ABG O2 Saturation (94-97) % Hemoglobin 9.2 L (13.0-17.5) gm/dL Chloride (98-107) mmol/L Carbon Dioxide (22-30) mmol/L Glucose (74-99) mg/dL POC Glucose (mg/dL) (70-110) mg/dL Calcium (8.4-10.2) mg/dL Lactate Dehydrogenase (120-246) U/L Microbiology - Last 24 Hours (Table) 07/11/24 04:47 Blood Culture - Preliminary Blood 07/12/24 03:15 Gram Stain - Final Sputum Sputum Culture - Final Assessment and Plan Plan: Outside the hospital cardiac arrest requiring 5 minutes of CPR prior to return of spontaneous circulation, rule out underlying anoxic encephalopathy. Encephalopathy, rule out anoxic encephalopathy the patient remains on propofol. Sedation holiday failed yesterday and there is probably some right-sided weakness noted on examination. Acute non-ST segment elevation myocardial infarction, status post cardiac catheterization indicating triple-vessel coronary artery disease Severe ischemic cardiomyopathy with an ejection fraction of 25 to 30% and segmental wall motion abnormalities. Limited echocardiogram shows impaired LV function and estimated ejection fraction is at 40% Cardiogenic shock secondary to above and the patient has an Impella for mechanical support, P4 augmentation, no pressors this morning Acute hypoxemic respiratory failure secondary to above requiring intubation and mechanical ventilatory support. Chest x-ray is consistent with CHF and bilateral pleural effusions. Severe metabolic acidosis at time of admission, improvement in acid-base status Acute kidney injury, recovered and the patient is producing adequate amount of urine output Recent discharge in May 2024 for atypical chest pain and COVID-19 infection/pneumonitis Rheumatoid arthritis Hypertension Benign prostatic hyperplasia Thrombocytopenia, still on IV heparin Anemia, multifactorial, acute, and hemoglobin stable for now. This could be potentially raised to Impella induced hemolysis. Plan: Continue ventilator support, switch this patient to a pressure control mode of mechanical ventilation with a pressure control of 20, expiratory time of 0.8, PEEP of 5 ventilator 14. Give the patient sedation holiday and assess mental status change. Obtain a CAT scan of the brain no contrast Neurology consultation Check mixed venous O2 and the levels was at 73% saturation Keep the Impella for hemodynamic support pressure urine output and cardiac output. Continue aspirin Continue IV heparin Monitor platelet count Patient is currently off pressors Hold diuretics Continue tube feedings for nutritional support currently vital AF 1.2 at 10 with a goal of 57 We will continue to follow and make further recommendations based on his cli nical status Condition remains critical. Prognosis poor based on above-mentioned comorbidities. Will continue to follow along with the rest of the consultants. His evaluation was done more than 30 minutes. Time with Patient: Greater than 30
[2024-07-15 11:54] LABS: Glucose,Whole Blood 144 mg/dL (70-110)
--- NOTE | 2024-07-15 12:45 | CT ---
EXAMINATION TYPE: CT brain wo con CT DLP: 1196.4 mGycm, Automated exposure control for dose reduction was used. DATE OF EXAM: 07/15/2024 12:32 PM COMPARISON: None. CLINICAL INDICATION:Male, 78 years old with history of right sided weakness and ams, Cardiac arrest, right sided weakness and AMS TECHNIQUE: Brain: Multiple axial CT images of the brain were obtained without IV contrast. . Coronal and sagitta l reformats reviewed. FINDINGS: Brain: Extra-axial spaces: No abnormal extra-axial fluid collections. Ventricular system: Within normal limits Cerebral parenchyma: No acute intraparenchymal hemorrhage or mass effect. Focal hypodense region iden tified within the left anterior parietal lobe (series 201, image 42). The flanagan-white junction is well differentiated. Scattered hypoattenuating areas are seen within the white matter. Cerebellum: Unremarkable. Mass effect: No evidence of midline shift. Intracranial vasculature: Atherosclerotic calcifications of the intracranial vessels. Soft tissues: Normal. Calvarium/osseous structures: No depressed skull fracture. Paranasal sinuses and mastoid air cells: Clear Visualized orbits: Bilateral aphakia Other: Partial visualization of endotracheal and orogastric tubes. IMPRESSION: 1. No acute intracranial bleed. 2. Focal region of low attenuation within the left parietal lobe which may represent an age-indeterm inate infarct. Consider further evaluation with MRI. 3. Nonspecific white matter changes, likely secondary to chronic small vessel ischemic disease. [facility], , 07/15/2024 12:43 PM
[2024-07-15 14:55] LABS: ABG Base Excess 0.4 mmol/L; ABG HCO3 25 mmol/L (21-25); ABG Oxygen Saturation 97.4 % (94-97); ABG PCO2 41 mmHg (35-45); ABG PO2 90 mmHg (83-108); ABG TCO2 27 mmol/L (19-24)
[2024-07-15 14:57] LABS: ABG Base Excess 0.8 mmol/L; ABG HCO3 27 mmol/L (21-25); ABG Oxygen Saturation 69.3 % (94-97); ABG PCO2 49 mmHg (35-45); ABG PH 7.35 (7.35-7.45); ABG TCO2 28 mmol/L (19-24)
[2024-07-15 14:59] LABS: ABG PO2 39 mmHg (83-108)
--- NOTE | 2024-07-15 15:35 | P.PN ---
Subjective Progress Note Date: 07/15/24 [facility] The patient is a 78-year-old gentleman with a past medical history significant for hypertension and rheumatoid arthritis and recently diagnosed of COVID-19 infection all this information was obtained from the chart. Currently the patient is intubated and he is on mechanical ventilation and history was taken from the chart as well as from the nurse taking care of the patient. The patient was in his usual state of health till earlier today when he was doing some work in his backyard and he was experiencing symptoms of chest discomfort and shortness of breath. Subsequent ambulance was called and upon arrival the patient collapsed and he was pulseless. CPR initiated for 5 minutes and brought to normal sinus mechanism. Subsequently patient was intubated and placed on mechanical ventilation. He was hypotensive and he continues to be hypotensive requiring norepinephrine. He was seen in intensive care unit. Currently he is still hemodynamically unstable and requiring norepinephrine. He is in sinus mechanism. I did review the EKG and that showed sinus mechanism with deep T wave inversion in the anterolateral leads concerning for severe underlying coronary artery disease versus stress-induced cardiomyopathy. At the same time the patient was admitted to the hospital last month with a chest discomfort in the setting of COVID with abnormal cardiac enzymes and he was treated medically at that point. Please note that the patient was experiencing chest discomfort and shortness of breath earlier today. No history of coronary artery disease or congestive heart failure or cardiac arrhythmia. The first set of troponin came in to be abnormal. The physical examination is remarkable for patient intubated on mechanical ventilation hemodynamically unstable with regular rate and rhythm and systolic murmur at the apical area and diminished breathing sounds bilaterally. July 12, 2024 The patient was seen and evaluated this morning. He continues to be intubated on mechanical ventilation and continues to be also on vasopressors. He is maintaining normal sinus mechanism. The plan is to pursue with a heart catheterization. The physical examination is remarkable for regular rhythm with a distant heart sounds and diminished breathing sounds bilaterally and no edema was noted in the lower extremities. July 13, 2024 Patient is seen and examined at bedside this a.m. He continues to be on ventilator support and Impella support. CVP 10 mmHg, MAP 65 mmHg, SBP 110, DBP 50 mmHg. P7 on Impella, off pressors Good urine output Hemoglobin 10.8, platelets 123, mild hemolysis noticed, LDH is elevated, fibrinogen is elevated but in range. July 14, 2024 Patient is seen and examined at bedside this a.m. He continues to be on ventilator support and Impella support. CVP 8 to 10 mmHg, MAP of 65 mmHg, SBP around 100 mmHg, DBP around 50 mmHg Last 9 was on high level. This morning he was on P7 Impella. Off pressors since yesterday afternoon. Continues to have good urine output Hemoglobin 9.9, platelets 106, fibrogenic 507, BUN 17, creatinine 0.8 We tried weaning to P4 levels. At P4 the [place] cardiac index was around 3.2. [employer] still less than 0.6. Patient was given sedation vacation and but neurological evaluation was not appropriate as sedation medication was not long enough. July 15, 2024 During sedation vacation and neurological evaluation patient was able to do some purposeful movement however the motor strength in right upper extremity was lower as compared to her extremities. Due to the focal nature we performed a CT head which showed some concerns of possible left parietal lobe subacute CVA. Case was discussed with neurology who recommended to continue anticoagulation for now and consideration of higher benefit over risk. At P4, SBP around 120s, DBP around 40s, MAP around 65, Cardiac index 3.1 L/min/m. On exam Intubated and sedated, on ventilator support, ET tube in place, appropriate air entry in bilateral lung pineda S1-S2 audible, Impella device in place with murmur from Impella device appreciated. 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 Multiple comorbid conditions Plan Continue heparin IV. Monitor telemetry for any arrhythmias. If significantly bradycardic, consider transvenous pacemaker. Notify cardiology if heart rate is less sustaining less than 40 bpm. Monitor electrolytes, hemoglobin levels, platelet levels, fibrinogen levels, LDH levels. Monitor renal function and electrolytes Continue aspirin and statin Continue Impella support. Goal is to reduce the Impella level to P4. Plan for PCI tomorrow of LAD with Impella support and thereafter wean off Impella. Case was discussed with the nursing staff ICU attending and the neurologist. Case was discussed with the network security architect. Update was given to the patient's point of contact and verbal consent was obtained for the PCI explaining the increased risk of CVA and other complications. Prognosis guarded Objective - Vital Signs Vital signs: Vital Signs Temp 99.2 F 07/15/24 12:00 Pulse 54 L 07/15/24 14:15 Resp 18 07/15/24 14:15 BP 104/51 07/14/24 08:15 Pulse Ox 97 07/15/24 14:15 FiO2 40 07/15/24 12:36 Intake & Output 07/14/24 07/15/24 07/15/24 18:59 06:59 18:59 Intake Total 1708.526 3920.204 735.898 Output Total 2500 565 2005 Balance -238.944 8969.204 -1269.102 Weight 106.8 kg 106.8 kg Intake: IV 391.9 319 211 0.9 KVO @ 20 260 220 160 Sodium Bicarb (1 Meq/ml) 14.9 12.5 ml In Dextrose 5% in Water 500 ml @ Per Protocol IV DIRECTED [facility] Rx#:[id number] a line x 2 117 99 51 Intake, IV Titration 438.990 9063.204 94.898 Amount Heparin Sod,Pork in 0.45% 27.563 250 NaCl 25,000 unit In 0.45 % NaCl 1 250ml.bag @ 11. 023 UNITS/KG/HR 10 mls/hr IV .Q24H [facility] Rx#: [id number] Norepinephrine 8 mg In 2.282 20.686 12.932 Sodium Chloride 0.9% 250 ml @ 0.19 MCG/KG/MIN 33. 353 mls/hr IV .Q7H45M [facility] Rx#:[id number] Sodium Chloride 0.9% 500 600 500 ml 500 ml @ 999 mls/hr IV .Q31M [facility] Rx#:[id number] fentaNYL (PF). 1,000 mcg 53.790 50.746 16.557 In Sodium Chloride 0.9% 80 ml @ 0.5 MCG/KG/HR 4. 536 mls/hr IV .Q22H3M [facility] Rx#:[id number] propofoL 1,000 mg In 179.377 258.772 65.409 Empty Bag 1 bag @ 15 MCG/ KG/MIN 8.165 mls/hr IV . [id number] [facility] Rx#:[id number] Oral 60 Tube Feeding 455 385 280 Other 90 90 90 Output: Urine 2500 565 2005 Other: Voiding Method Indwelling Catheter Indwelling Catheter Indwelling Catheter ABP, PAP, CO, CI - Last Documented Arterial Blood Pressure 131/52 - Labs CBC & Chem 7: 07/15/24 04:07 07/15/24 04:07 Labs: Abnormal Lab Results - Last 24 Hours (Table) 07/14/24 07/14/24 07/14/24 Range/Units 18:07 20:30 20:30 Hgb (13.0-17.5) gm/dL Hct (39.0-53.0) % MCV (80.0-100.0) fL MCH (25.0-35.0) pg MCHC (31.0-37.0) g/dL RDW (11.5-15.5) % Plt Count (150-450) k/uL APTT (22.0-30.0) sec Fibrinogen 563 H (200-500) mg/dL ABG pH (7.35-7.45) ABG pCO2 (35-45) mmHg ABG pO2 (83-108) mmHg ABG HCO3 (21-25) mmol/L ABG Total CO2 (19-24) mmol/L ABG O2 Saturation (94-97) % Hemoglobin (13.0-17.5) gm/dL Chloride (98-107) mmol/L Carbon Dioxide (22-30) mmol/L Glucose (74-99) mg/dL POC Glucose (mg/dL) 124 H (70-110) mg/dL Calcium (8.4-10.2) mg/dL Lactate Dehydrogenase 691 H (120-246) U/L 07/14/24 07/15/24 07/15/24 Range/Units 23:13 04:07 04:07 Hgb (13.0-17.5) gm/dL Hct (39.0-53.0) % MCV (80.0-100.0) fL MCH (25.0-35.0) pg MCHC (31.0-37.0) g/dL RDW (11.5-15.5) % Plt Count (150-450) k/uL APTT 55.1 H (22.0-30.0) sec Fibrinogen 560 H (200-500) mg/dL ABG pH (7.35-7.45) ABG pCO2 (35-45) mmHg ABG pO2 (83-108) mmHg ABG HCO3 (21-25) mmol/L ABG Total CO2 (19-24) mmol/L ABG O2 Saturation (94-97) % Hemoglobin (13.0-17.5) gm/dL Chloride 113 H (98-107) mmol/L Carbon Dioxide 21 L (22-30) mmol/L Glucose 146 H (74-99) mg/dL POC Glucose (mg/dL) 138 H (70-110) mg/dL Calcium 7.6 L (8.4-10.2) mg/dL Lactate Dehydrogenase 625 H (120-246) U/L 07/15/24 07/15/24 07/15/24 Range/Units 04:07 05:07 05:50 Hgb 9.6 L (13.0-17.5) gm/dL Hct 31.2 L (39.0-53.0) % MCV 68.4 L (80.0-100.0) fL MCH 21.0 L (25.0-35.0) pg MCHC 30.7 L (31.0-37.0) g/dL RDW 17.2 H (11.5-15.5) % Plt Count 116 L (150-450) k/uL APTT (22.0-30.0) sec Fibrinogen (200-500) mg/dL ABG pH 7.34 L (7.35-7.45) ABG pCO2 (35-45) mmHg ABG pO2 (83-108) mmHg ABG HCO3 (21-25) mmol/L ABG Total CO2 25 H (19-24) mmol/L ABG O2 Saturation (94-97) % Hemoglobin 9.2 L (13.0-17.5) gm/dL Chloride (98-107) mmol/L Carbon Dioxide (22-30) mmol/L Glucose (74-99) mg/dL POC Glucose (mg/dL) 136 H (70-110) mg/dL Calcium (8.4-10.2) mg/dL Lactate Dehydrogenase (120-246) U/L 07/15/24 07/15/24 07/15/24 Range/Units 11:53 14:47 14:53 Hgb (13.0-17.5) gm/dL Hct (39.0-53.0) % MCV (80.0-100.0) fL MCH (25.0-35.0) pg MCHC (31.0-37.0) g/dL RDW (11.5-15.5) % Plt Count (150-450) k/uL APTT (22.0-30.0) sec Fibrinogen (200-500) mg/dL ABG pH (7.35-7.45) ABG pCO2 49 H (35-45) mmHg ABG pO2 39 L* (83-108) mmHg ABG HCO3 27 H (21-25) mmol/L ABG Total CO2 27 H 28 H (19-24) mmol/L ABG O2 Saturation 97.4 H 69.3 L (94-97) % Hemoglobin 9.3 L 9.2 L (13.0-17.5) gm/dL Chloride (98-107) mmol/L Carbon Dioxide (22-30) mmol/L Glucose (74-99) mg/dL POC Glucose (mg/dL) 144 H (70-110) mg/dL Calcium (8.4-10.2) mg/dL Lactate Dehydrogenase (120-246) U/L Microbiology - Last 24 Hours (Table) 07/11/24 04:47 Blood Culture - Preliminary Blood
--- NOTE | 2024-07-15 16:08 | P.CNNES ---
History of Present Illness Consult date: 07/15/24 Requesting physician: Con Cotto Reason for Consult: not moving right side History of Present Illness: This is a 78-year-old gentleman who is having worsening of shortness of breath and had out of the hospital cardiopulmonary arrest and presented to our ED on 07/11/2024. Neurology is consulted for right-sided weakness. History is obtained from medical record. It seems that the patient was having worsening of his shortness of breath and it seems that on 07/10/2024 he was cleaning the garage and complaint of shortness of breath chest discomfort which was worsening and it seems the EMS was called and the patient was found collapsed and he was pulseless and CPR was started taking approximately 5 minutes until return of spontaneous circulation. Patient was intubated on the mechanical ventilator. Patient had a cardiac cath in our facility on 07/12/2024 and revealed calcified right and left coronary system with critical triple-vessel coronary artery disease with severely elevated left-sided filling pressure with Impella placement. Has non-STEMI and had ischemic cardiomyopathy with ejection fraction of 15 to 20%. Today cardiology stated that when the sedation was held for IV propofol patient was not moving the right side when I spoke to the nurse he stated that he thinks this happened on 07/13/2024 and the patient is on IV propofol and fentanyl. Yesterday we attempted to get obtain CT of the head but unable since patient has Impella. This hospital visit the patient is on heparin drip. Some of the work-up during this hospital visit consisted of: Ammonia is 18 Vitamin B12: 414 Folate: 12.5 TSH: 7.630, free T4 0.80 CT of the head is reported as no acute finding. I reviewed the CT and there is a lot of artifact it is hard to appreciate any acute or subacute ischemia. I felt there is hypoattenuation on the left frontal parietal region but again it is hard to assess. Carotid duplex is reported as arthritis plaque in present with may have mild to moderate internal carotid artery narrowing on the left just above 50. Unable to visualize right vertebral artery. The echo was reported as severe cardiomyopathy with wall motion abnormality including apical hypokinesis. Ejection fraction of 25 to 30%. Review of Systems Limited Past Medical History Past Medical History: Coronary Artery Disease (CAD), Hypertension, Rheumatoid Arthritis (RA) Additional Past Medical History / Comment(s): covid +/CP with hospital admission may 2024 History of Any Multi-Drug Resistant Organisms: None Reported Past Surgical History: Orthopedic Surgery Additional Past Surgical History / Comment(s): neck surgery; right knee surgery; right shoulder surgery; lower back Past Anesthesia/Blood Transfusion Reactions: No Reported Reaction Smoking Status: Never smoker Medications and Allergies Home Medications Medication Instructions Recorded Confirmed Type Multivitamins, Thera [Multivitamin 1 tab PO DAILY 05/13/24 07/11/24 History (formulary)] NIFEdipine [Adalat CC] 30 mg PO DAILY PRN 05/13/24 07/11/24 History [place]-3/Dha/Epa/Fish Oil [Fish Oil 2 cap PO DAILY 05/13/24 07/11/24 History 1,000 mg Softgel] Sennosides [Senokot] 8.6 mg PO DAILY PRN 05/13/24 07/11/24 History Tamsulosin HCl [Flomax] 0.4 mg PO HS 05/13/24 07/11/24 History hydrOXYzine HCL [Atarax] 25 mg PO HS PRN 05/13/24 07/11/24 History Etanercept [Enbrel] 50 mg SQ MO #0 05/15/24 07/11/24 Rx Allergies Allergy/AdvReac Type Severity Reaction Status Date / Time No Known Allergies Allergy Verified 07/11/24 09:38 Physical Examination - Vital Signs Vital Signs: Vital Signs Temp Pulse Resp Pulse Ox FiO2 07/15/24 15:30 58 L 18 98 07/15/24 15:15 57 L 18 98 07/15/24 15:00 56 L 18 98 07/15/24 14:45 53 L 18 97 07/15/24 14:30 54 L 18 97 07/15/24 14:15 54 L 18 97 07/15/24 14:00 53 L 18 96 07/15/24 13:45 54 L 18 97 07/15/24 13:30 55 L 18 96 07/15/24 13:15 56 L 18 96 07/15/24 13:00 56 L 18 97 07/15/24 12:45 58 L 18 97 07/15/24 12:36 40 07/15/24 12:30 56 L 18 100 07/15/24 12:15 57 L 18 100 07/15/24 12:00 99.2 F 58 L 18 94 L 40 07/15/24 11:59 40 07/15/24 11:45 62 18 95 07/15/24 11:30 63 18 94 L 07/15/24 11:19 40 07/15/24 11:15 68 22 93 L 07/15/24 11:00 72 27 H 93 L 07/15/24 10:45 65 18 99 07/15/24 10:30 60 18 99 07/15/24 10:15 62 19 98 07/15/24 10:00 61 18 99 07/15/24 09:45 60 18 98 07/15/24 09:30 60 18 98 07/15/24 09:16 40 07/15/24 09:15 61 18 98 07/15/24 09:00 61 23 98 07/15/24 08:45 58 L 18 98 07/15/24 08:30 56 L 18 98 07/15/24 08:27 56 L 07/15/24 08:17 59 L 07/15/24 08:15 57 L 18 97 07/15/24 08:09 40 07/15/24 08:06 40 07/15/24 08:00 98.6 F 49 L 18 98 40 07/15/24 07:45 50 L 18 98 07/15/24 07:30 52 L 18 98 07/15/24 07:15 52 L 18 98 07/15/24 07:00 55 L 7 L 98 07/15/24 06:45 54 L 7 L 97 07/15/24 06:30 59 L 19 94 L 07/15/24 06:15 75 25 H 95 07/15/24 06:00 61 19 100 07/15/24 05:45 59 L 18 97 07/15/24 05:30 64 22 97 07/15/24 05:15 60 19 99 07/15/24 05:00 56 L 18 98 07/15/24 04:45 58 L 21 99 07/15/24 04:32 56 L 07/15/24 04:30 56 L 19 99 07/15/24 04:18 52 L 40 07/15/24 04:15 52 L 18 98 07/15/24 04:00 98.0 F 56 L 17 98 40 07/15/24 03:45 51 L 18 97 07/15/24 03:30 50 L 18 97 07/15/24 03:15 51 L 18 97 07/15/24 03:00 51 L 18 97 07/15/24 02:45 53 L 18 97 07/15/24 02:30 55 L 18 97 07/15/24 02:15 56 L 18 96 07/15/24 02:00 58 L 18 97 07/15/24 01:45 60 18 96 07/15/24 01:30 62 17 96 07/15/24 01:15 66 20 97 07/15/24 01:00 71 27 H 99 07/15/24 00:45 66 19 96 07/15/24 00:30 65 21 97 07/15/24 00:24 67 07/15/24 00:17 40 07/15/24 00:15 59 L 19 97 07/15/24 00:14 59 L 07/15/24 00:01 60 21 97 07/15/24 00:00 98.9 F 60 18 97 40 07/14/24 23:45 58 L 20 97 07/14/24 23:30 58 L 18 95 07/14/24 23:15 60 18 96 07/14/24 23:00 61 18 98 07/14/24 22:45 64 20 98 07/14/24 22:30 61 18 97 07/14/24 22:15 61 18 97 07/14/24 22:00 60 18 96 07/14/24 21:45 62 18 96 07/14/24 21:30 66 27 H 100 07/14/24 21:15 61 20 97 07/14/24 21:03 58 L 07/14/24 21:00 59 L 18 98 07/14/24 20:50 40 07/14/24 20:49 56 L 07/14/24 20:45 56 L 18 97 07/14/24 20:30 57 L 18 97 07/14/24 20:15 60 19 98 07/14/24 20:00 99.1 F 58 L 18 97 40 07/14/24 19:45 61 18 97 07/14/24 19:30 62 22 98 07/14/24 19:15 58 L 20 98 07/14/24 19:00 60 20 97 07/14/24 18:45 59 L 17 98 07/14/24 18:30 59 L 20 96 07/14/24 18:15 57 L 20 96 07/14/24 18:00 58 L 19 97 07/14/24 17:45 57 L 19 97 07/14/24 17:30 58 L 21 99 07/14/24 17:15 56 L 18 99 07/14/24 17:00 57 L 19 99 07/14/24 16:45 54 L 15 98 07/14/24 16:30 53 L 18 99 07/14/24 16:15 54 L 18 99 07/14/24 16:00 98.6 F 52 L 18 99 40 07/14/24 15:47 40 07/14/24 15:45 52 L 18 97 Intake and Output 07/15/24 07/15/24 07/15/24 06:59 14:59 22:59 Intake Total 1051.477 735.898 126.316 Output Total 355 2004 325 Balance 696.477 -1269.102 -198.684 Intake: IV 232 211 26 0.9 KVO @ 20 160 160 20 a line x 2 72 51 6 Intake, IV Titration 479.477 94.898 65.316 Amount Heparin Sod,Pork in 0.45% 250 NaCl 25,000 unit In 0.45 % NaCl 1 250ml.bag @ 11. 023 UNITS/KG/HR 10 mls/hr IV .Q24H HOLLI Rx#: [id number] Norepinephrine 8 mg In 20.686 12.932 Sodium Chloride 0.9% 250 ml @ 0.19 MCG/KG/MIN 33. 353 mls/hr IV .[id number] HOLLI Rx#:[id number] fentaNYL (PF). 1,000 mcg 28.217 16.557 In Sodium Chloride 0.9% 80 ml @ 0.5 MCG/KG/HR 4. 536 mls/hr IV .Q22H3M HOLLI Rx#:[id number] propofoL 1,000 mg In 180.574 65.409 65.316 Empty Bag 1 bag @ 15 MCG/ KG/MIN 8.165 mls/hr IV . [id number] HOLLI Rx#:[id number] Oral 60 Tube Feeding 280 280 35 Other 60 90 Output: Urine 2004 325 Other: Voiding Method Indwelling Catheter Indwelling Catheter Weight 106.8 kg 106.8 kg ABP, PAP, CO, CI - Last 8 Hours Arterial Blood Pressure 143/47 Arterial Blood Pressure 141/48 Arterial Blood Pressure 144/52 Arterial Blood Pressure 127/48 Arterial Blood Pressure 121/48 Arterial Blood Pressure 131/52 Arterial Blood Pressure 116/47 Arterial Blood Pressure 115/45 Arterial Blood Pressure 117/46 Arterial Blood Pressure 118/46 Arterial Blood Pressure 131/50 Arterial Blood Pressure 140/52 Arterial Blood Pressure 135/48 Arterial Blood Pressure 120/43 Arterial Blood Pressure 144/48 Arterial Blood Pressure 157/52 Arterial Blood Pressure 187/64 Arterial Blood Pressure 156/56 Arterial Blood Pressure 148/49 Arterial Blood Pressure 141/48 Arterial Blood Pressure 137/45 Arterial Blood Pressure 121/39 Arterial Blood Pressure 132/44 Arterial Blood Pressure 130/44 Arterial Blood Pressure 171/64 Arterial Blood Pressure 122/41 Arterial Blood Pressure 119/41 Arterial Blood Pressure 146/57 Arterial Blood Pressure 121/43 Arterial Blood Pressure 113/40 General: Lying in bed and is not in acute distress. Lung: Intubated on a ventilator. Neuro: Limited. IV Propofol 50mcg/kg/min held for about 45 minutes and IV Fentanyl was held for a few hours. The patient is drowsy but is awakeable to voice. Is following simple commands (closing and opening eyes to commands, squeezing left hand on command and lifting extremities). Facial strength is limited in assessment but no obvious weakness. Motor: Strength is limited in assessment individual muscle. No movement of the right upper extremity. Has 2-3/5 over the right lower extremity. Left side has good strength and appears 5/5. Plantars: Mute bilaterally. Results - Laboratory Findings CBC and BMP: 07/15/24 04:07 07/15/24 04:07 Abnormal Lab Findings: Abnormal Labs 07/11/24 07/11/24 07/11/24 02:25 02:25 02:25 WBC 19.7 H RBC 6.95 H Hgb Hct MCV 74.8 L D MCH 21.1 L MCHC 28.2 L RDW 16.3 H Plt Count Lymphocytes # 11.7 H Monocytes # 1.2 H Basophils # 0.3 H APTT 34.2 H Fibrinogen ABG pH ABG pCO2 ABG pO2 ABG HCO3 ABG Total CO2 ABG O2 Saturation Hemoglobin Sodium Potassium Chloride Carbon Dioxide 13 L BUN Creatinine Glucose 313 H POC Glucose (mg/dL) Plasma Lactic Acid Nuno Calcium Magnesium 2.6 H Lactate Dehydrogenase Troponin I Procalcitonin TSH 7.630 H 07/11/24 07/11/24 07/11/24 02:25 04:24 06:21 WBC RBC Hgb Hct MCV MCH MCHC RDW Plt Count Lymphocytes # Monocytes # Basophils # APTT Fibrinogen ABG pH 7.01 L* 7.14 L* ABG pCO2 91 H* 62 H ABG pO2 70 L ABG HCO3 ABG Total CO2 26 H ABG O2 Saturation 88.5 L 88.2 L Hemoglobin Sodium Potassium Chloride Carbon Dioxide BUN Creatinine Glucose POC Glucose (mg/dL) Plasma Lactic Acid Nuno Calcium Magnesium Lactate Dehydrogenase Troponin I 0.588 H* Procalcitonin TSH 07/11/24 07/11/24 07/11/24 07:45 08:14 11:03 WBC RBC Hgb Hct MCV MCH MCHC RDW Plt Count Lymphocytes # Monocytes # Basophils # APTT 72.7 H Fibrinogen ABG pH ABG pCO2 ABG pO2 ABG HCO3 ABG Total CO2 ABG O2 Saturation Hemoglobin Sodium Potassium Chloride Carbon Dioxide BUN Creatinine Glucose POC Glucose (mg/dL) 201 H Plasma Lactic Acid Nuno 3.2 H* Calcium Magnesium Lactate Dehydrogenase Troponin I Procalcitonin [facility] 07/11/24 07/11/24 07/11/24 11:03 11:46 12:15 WBC RBC Hgb Hct MCV MCH MCHC RDW Plt Count Lymphocytes # Monocytes # Basophils # APTT Fibrinogen ABG pH ABG pCO2 ABG pO2 ABG HCO3 ABG Total CO2 ABG O2 Saturation Hemoglobin Sodium Potassium Chloride Carbon Dioxide BUN Creatinine Glucose POC Glucose (mg/dL) 138 H Plasma Lactic Acid Nuno Calcium Magnesium Lactate Dehydrogenase Troponin I 14.900 H* Procalcitonin 2.82 H [facility] 07/11/24 07/11/24 07/11/24 16:40 18:30 18:33 WBC RBC Hgb Hct MCV MCH MCHC RDW Plt Count Lymphocytes # Monocytes # Basophils # APTT 39.7 H Fibrinogen ABG pH ABG pCO2 ABG pO2 ABG HCO3 ABG Total CO2 ABG O2 Saturation Hemoglobin Sodium Potassium Chloride Carbon Dioxide BUN Creatinine Glucose POC Glucose (mg/dL) 128 H Plasma Lactic Acid Nuno Calcium Magnesium Lactate Dehydrogenase Troponin I 21.100 H* Procalcitonin TSH 07/11/24 07/11/24 07/11/24 20:55 22:57 23:12 WBC RBC Hgb Hct MCV MCH MCHC RDW Plt Count Lymphocytes # Monocytes # Basophils # APTT Fibrinogen ABG pH ABG pCO2 ABG pO2 ABG HCO3 ABG Total CO2 ABG O2 Saturation Hemoglobin Sodium Potassium Chloride 114 H Carbon Dioxide 17 L BUN 27 H Creatinine 1.35 H Glucose 126 H POC Glucose (mg/dL) 113 H Plasma Lactic Acid Nuno Calcium 7.9 L Magnesium Lactate Dehydrogenase Troponin I 22.800 H* Procalcitonin [facility] 07/12/24 07/12/24 07/12/24 01:47 EST 04:50 04:50 WBC RBC Hgb 11.3 L D Hct 35.7 L MCV 66.4 L D MCH 21.0 L MCHC RDW 16.9 H Plt Count Lymphocytes # Monocytes # Basophils # APTT 55.8 H Fibrinogen ABG pH ABG pCO2 ABG pO2 ABG HCO3 ABG Total CO2 ABG O2 Saturation Hemoglobin Sodium Potassium 2.4 L* Chloride 128 H Carbon Dioxide 12 L BUN Creatinine Glucose POC Glucose (mg/dL) Plasma Lactic Acid Nuno Calcium 4.7 L* Magnesium Lactate Dehydrogenase Troponin I Procalcitonin [facility] 07/12/24 07/12/24 07/12/24 05:17 05:45 05:45 WBC RBC Hgb 11.4 L Hct 36.1 L MCV 66.3 L MCH 20.9 L MCHC RDW 16.6 H Plt Count Lymphocytes # Monocytes # Basophils # APTT Fibrinogen ABG pH ABG pCO2 ABG pO2 ABG HCO3 ABG Total CO2 ABG O2 Saturation Hemoglobin Sodium 136 L Potassium Chloride 114 H Carbon Dioxide 18 L BUN 29 H Creatinine 1.47 H Glucose 114 H POC Glucose (mg/dL) 116 H Plasma Lactic Acid Nuno Calcium 7.8 L Magnesium Lactate Dehydrogenase Troponin I Procalcitonin [facility] 07/12/24 07/12/24 07/12/24 06:10 12:50 12:50 WBC RBC Hgb 11.4 L Hct 36.3 L MCV 66.9 L MCH 21.1 L MCHC RDW 16.7 H Plt Count Lymphocytes # Monocytes # Basophils # APTT >200.0 H* Fibrinogen ABG pH 7.49 H ABG pCO2 26 L ABG pO2 163 H ABG HCO3 20 L ABG Total CO2 ABG O2 Saturation 99.9 H Hemoglobin 11.9 L Sodium Potassium Chloride Carbon Dioxide BUN Creatinine Glucose POC Glucose (mg/dL) Plasma Lactic Acid Nuno Calcium Magnesium Lactate Dehydrogenase Troponin I Procalcitonin [facility] 07/12/24 07/12/24 07/12/24 12:50 16:45 16:45 WBC RBC Hgb Hct MCV MCH MCHC RDW Plt Count Lymphocytes # Monocytes # Basophils # APTT 42.8 H Fibrinogen ABG pH ABG pCO2 ABG pO2 ABG HCO3 ABG Total CO2 ABG O2 Saturation Hemoglobin Sodium Potassium Chloride 116 H Carbon Dioxide 18 L BUN 28 H Creatinine 1.26 H Glucose POC Glucose (mg/dL) Plasma Lactic Acid Nuno Calcium 7.9 L Magnesium Lactate Dehydrogenase 584 H Troponin I Procalcitonin [facility] 07/12/24 07/12/24 07/13/24 18:45 20:45 00:20 WBC RBC Hgb Hct MCV MCH MCHC RDW Plt Count Lymphocytes # Monocytes # Basophils # APTT 34.9 H 48.8 H Fibrinogen ABG pH ABG pCO2 ABG pO2 ABG HCO3 ABG Total CO2 ABG O2 Saturation Hemoglobin Sodium Potassium Chloride Carbon Dioxide BUN Creatinine Glucose POC Glucose (mg/dL) Plasma Lactic Acid Nuno Calcium Magnesium Lactate Dehydrogenase 809 H Troponin I Procalcitonin [facility] 07/13/24 07/13/24 07/13/24 00:20 04:40 04:40 WBC RBC Hgb Hct MCV MCH MCHC RDW Plt Count Lymphocytes # Monocytes # Basophils # APTT 37.9 H Fibrinogen ABG pH ABG pCO2 ABG pO2 ABG HCO3 ABG Total CO2 ABG O2 Saturation Hemoglobin Sodium 135 L Potassium Chloride 115 H Carbon Dioxide 18 L BUN 27 H Creatinine Glucose POC Glucose (mg/dL) Plasma Lactic Acid Nuno Calcium 7.8 L Magnesium Lactate Dehydrogenase 928 H 984 H Troponin I Procalcitonin [facility] 07/13/24 07/13/24 07/13/24 04:40 06:03 06:06 WBC RBC Hgb 10.6 L Hct 33.1 L MCV 65.8 L MCH 21.1 L MCHC RDW 16.5 H Plt Count 126 L Lymphocytes # Monocytes # Basophils # APTT Fibrinogen ABG pH 7.46 H ABG pCO2 27 L ABG pO2 ABG HCO3 19 L ABG Total CO2 ABG O2 Saturation 97.9 H Hemoglobin 10.7 L Sodium Potassium Chloride Carbon Dioxide BUN Creatinine Glucose POC Glucose (mg/dL) 125 H Plasma Lactic Acid Nuno Calcium Magnesium Lactate Dehydrogenase Troponin I Procalcitonin [facility] 07/13/24 07/13/24 07/13/24 12:41 12:42 12:42 WBC RBC Hgb Hct MCV MCH MCHC RDW Plt Count Lymphocytes # Monocytes # Basophils # APTT 48.0 H Fibrinogen ABG pH ABG pCO2 ABG pO2 ABG HCO3 ABG Total CO2 ABG O2 Saturation Hemoglobin Sodium Potassium Chloride Carbon Dioxide BUN Creatinine Glucose POC Glucose (mg/dL) 116 H Plasma Lactic Acid Nuno Calcium Magnesium Lactate Dehydrogenase 918 H Troponin I Procalcitonin TSH 07/13/24 07/13/24 07/13/24 12:42 17:26 19:05 WBC RBC Hgb 10.8 L Hct 33.2 L MCV 66.8 L MCH 21.6 L MCHC RDW 16.4 H Plt Count 123 L Lymphocytes # Monocytes # Basophils # APTT 49.1 H Fibrinogen ABG pH ABG pCO2 ABG pO2 ABG HCO3 ABG Total CO2 ABG O2 Saturation Hemoglobin Sodium Potassium Chloride Carbon Dioxide BUN Creatinine Glucose POC Glucose (mg/dL) 122 H Plasma Lactic Acid Nuno Calcium Magnesium Lactate Dehydrogenase Troponin I Procalcitonin TSH 07/13/24 07/13/24 07/14/24 20:40 23:43 00:29 WBC RBC Hgb Hct MCV MCH MCHC RDW Plt Count Lymphocytes # Monocytes # Basophils # APTT Fibrinogen ABG pH ABG pCO2 ABG pO2 ABG HCO3 ABG Total CO2 ABG O2 Saturation Hemoglobin Sodium Potassium Chloride 114 H Carbon Dioxide 20 L BUN Creatinine Glucose 113 H POC Glucose (mg/dL) 115 H Plasma Lactic Acid Nuno Calcium 7.5 L Magnesium Lactate Dehydrogenase 934 H Troponin I Procalcitonin TSH 07/14/24 07/14/24 07/14/24 00:30 04:20 04:20 WBC RBC Hgb Hct MCV MCH MCHC RDW Plt Count Lymphocytes # Monocytes # Basophils # APTT 45.6 H 42.4 H Fibrinogen 507 H ABG pH ABG pCO2 ABG pO2 ABG HCO3 ABG Total CO2 ABG O2 Saturation Hemoglobin Sodium Potassium Chloride 112 H Carbon Dioxide BUN Creatinine Glucose 116 H POC Glucose (mg/dL) Plasma Lactic Acid Nuno Calcium 7.7 L Magnesium Lactate Dehydrogenase 946 H Troponin I Procalcitonin TSH 07/14/24 07/14/24 07/14/24 04:20 06:02 06:05 WBC RBC Hgb 9.9 L Hct 32.8 L MCV 67.9 L MCH 20.5 L MCHC 30.3 L RDW 16.9 H Plt Count 106 L Lymphocytes # Monocytes # Basophils # APTT Fibrinogen ABG pH 7.32 L ABG pCO2 ABG pO2 ABG HCO3 ABG Total CO2 ABG O2 Saturation Hemoglobin 9.8 L Sodium Potassium Chloride Carbon Dioxide BUN Creatinine Glucose POC Glucose (mg/dL) 147 H Plasma Lactic Acid Nuno Calcium Magnesium Lactate Dehydrogenase Troponin I Procalcitonin [facility] 07/14/24 07/14/24 07/14/24 09:40 09:46 12:01 WBC RBC Hgb Hct MCV MCH MCHC RDW Plt Count Lymphocytes # Monocytes # Basophils # APTT Fibrinogen ABG pH 7.29 L 7.33 L ABG pCO2 49 H ABG pO2 43 L* ABG HCO3 ABG Total CO2 25 H ABG O2 Saturation 70.9 L 97.5 H Hemoglobin 9.6 L 9.6 L Sodium Potassium Chloride Carbon Dioxide BUN Creatinine Glucose POC Glucose (mg/dL) 134 H Plasma Lactic Acid Nuno Calcium Magnesium Lactate Dehydrogenase Troponin I Procalcitonin [facility] 07/14/24 07/14/24 07/14/24 13:00 13:00 14:05 WBC RBC Hgb Hct MCV MCH MCHC RDW Plt Count Lymphocytes # Monocytes # Basophils # APTT 55.8 H Fibrinogen 544 H ABG pH 7.31 L ABG pCO2 49 H ABG pO2 43 L* ABG HCO3 ABG Total CO2 26 H ABG O2 Saturation 73.0 L Hemoglobin 9.6 L Sodium Potassium Chloride Carbon Dioxide BUN Creatinine Glucose POC Glucose (mg/dL) Plasma Lactic Acid Nuno Calcium Magnesium Lactate Dehydrogenase 796 H Troponin I Procalcitonin [facility] 07/14/24 07/14/24 07/14/24 14:09 18:07 20:30 WBC RBC Hgb Hct MCV MCH MCHC RDW Plt Count Lymphocytes # Monocytes # Basophils # APTT Fibrinogen 563 H ABG pH 7.34 L ABG pCO2 ABG pO2 ABG HCO3 ABG Total CO2 ABG O2 Saturation 98.2 H Hemoglobin 9.5 L Sodium Potassium Chloride Carbon Dioxide BUN Creatinine Glucose POC Glucose (mg/dL) 124 H Plasma Lactic Acid Nuno Calcium Magnesium Lactate Dehydrogenase Troponin I Procalcitonin [facility] 07/14/24 07/14/24 07/15/24 20:30 23:13 04:07 WBC RBC Hgb Hct MCV MCH MCHC RDW Plt Count Lymphocytes # Monocytes # Basophils # APTT 55.1 H Fibrinogen 560 H ABG pH ABG pCO2 ABG pO2 ABG HCO3 ABG Total CO2 ABG O2 Saturation Hemoglobin Sodium Potassium Chloride Carbon Dioxide BUN Creatinine Glucose POC Glucose (mg/dL) 138 H Plasma Lactic Acid Nuno Calcium Magnesium Lactate Dehydrogenase 691 H Troponin I Procalcitonin TSH 07/15/24 07/15/24 07/15/24 04:07 04:07 05:07 WBC RBC Hgb 9.6 L Hct 31.2 L MCV 68.4 L MCH 21.0 L MCHC 30.7 L RDW 17.2 H Plt Count 116 L Lymphocytes # Monocytes # Basophils # APTT Fibrinogen ABG pH ABG pCO2 ABG pO2 ABG HCO3 ABG Total CO2 ABG O2 Saturation Hemoglobin Sodium Potassium Chloride 113 H Carbon Dioxide 21 L BUN Creatinine Glucose 146 H POC Glucose (mg/dL) 136 H Plasma Lactic Acid Nuno Calcium 7.6 L Magnesium Lactate Dehydrogenase 625 H Troponin I Procalcitonin TSH 07/15/24 07/15/24 07/15/24 05:50 11:53 14:47 WBC RBC Hgb Hct MCV MCH MCHC RDW Plt Count Lymphocytes # Monocytes # Basophils # APTT Fibrinogen ABG pH 7.34 L ABG pCO2 ABG pO2 ABG HCO3 ABG Total CO2 25 H 27 H ABG O2 Saturation 97.4 H Hemoglobin 9.2 L 9.3 L Sodium Potassium Chloride Carbon Dioxide BUN Creatinine Glucose POC Glucose (mg/dL) 144 H Plasma Lactic Acid Nuno Calcium Magnesium Lactate Dehydrogenase Troponin I Procalcitonin TSH 07/15/24 14:53 WBC RBC Hgb Hct MCV MCH MCHC RDW Plt Count Lymphocytes # Monocytes # Basophils # APTT Fibrinogen ABG pH ABG pCO2 49 H ABG pO2 39 L* ABG HCO3 27 H ABG Total CO2 28 H ABG O2 Saturation 69.3 L Hemoglobin 9.2 L Sodium Potassium Chloride Carbon Dioxide BUN Creatinine Glucose POC Glucose (mg/dL) Plasma Lactic Acid Nuno Calcium Magnesium Lactate Dehydrogenase Troponin I Procalcitonin TSH Assessment and Plan Assessment: This is a 78-year-old gentleman having shortness of breath and presents to our facility on 07/11/2024 because out of the hospital cardiopulmonary arrest lasting for 5 minutes. Found to have severe underlying vessel coronary artery disease, ischemic cardiomyopathy with ejection fraction of 15 to 20% and had Impella placed on 07/12/2024. First his right side weakness may be began on 07/13/2024 but it was hard to assess because he was on sedation. Patient is on IV heparin for his cardiac issues. Acute right hemiparesis likely due to acute ischemic stroke. No IV thrombolytic since patient is on heparin drip and is outside the window and the risk outweigh the benefit. She will CT of the head and 07/11/2024 was negative for acute or subacute stroke but I felt was limited due to artifact Altered Mental status multifactorial: Due to sedation, stroke----with sedation holiday he was following simple commands. Underlying history of multivessel coronary artery disease Ischemic cardiomyopathy with ejection fraction of 15 to 20% status post Impella Out of the hospital cardiopulmonary arrest lasting for 5 minutes Plan: I ordered CT of the head since 07/14/2024 and spoke with the pressure vessel inspector since unable to obtain CT of the head since he has Impella. Notified the pressure vessel inspector that was important to obtain CT of the head especially since the patient on heparin drip to rule out any hemorrhagic stroke and assess if it is ischemic the size of his stroke. Patient is on aspirin 81 mg, Lipitor 40 mg nightly. I ordered lipid panel If CT of the head is unremarkable for hemorrhagic stroke and the benefit outweigh the risk of heparin then to resume heparin and avoid boluses and keep PTT if possible between 45 and 60. Neurochecks Cardiac monitoring PT OT are consulted NO need for EEG since this is not seizure and patient is following commands after sedation holiday. Cardiothoracic team is consulted for CABG evaluation Will defer the rest of the medical management to primary and other specialist For DVT prophylaxis the patient is on heparin drip Thankyou for the consultation. ADDENDUM: It is reported as no acute intracranial bleed. Focal region of low-attenuation within the left parietal lobe which may represent an age indeterminate infarct. Consider further evaluation with MRI. I personally reviewed the CT and felt the patient has subacute infarct in the left parietal region. I will obtain a repeat CT head for tomorrow. Time with Patient: Greater than 30
[2024-07-15 17:26] LABS: Glucose,Whole Blood 131 mg/dL (70-110)
[2024-07-15] MEDS: TAMSULOSIN 0.4 MG CAP.ER.24H PO SCH (20:35)
[2024-07-15] MEDS: MORPHINE SULFATE 2 MG/ML SYRINGE IV PRN (23:22)
[2024-07-16 00:43] LABS: Glucose,Whole Blood 116 mg/dL (70-110)
[2024-07-16 03:40] LABS: Chol/HDL Ratio 3.52 Ratio; LDL Cholesterol,Calculated 63.1 mg/dL (0.0-131.0)
[2024-07-16 04:25] LABS: ABG Base Excess 0.4 mmol/L; ABG HCO3 27 mmol/L (21-25); ABG PCO2 49 mmHg (35-45); ABG PH 7.34 (7.35-7.45); ABG PO2 92 mmHg (83-108); ABG TCO2 28 mmol/L (19-24)
[2024-07-16 04:27] LABS: Allen Test Performed? no
[2024-07-16 04:37] LABS: Anisocytosis Slight; HCT 28.7 % (39.0-53.0); HGB 8.9 gm/dL (13.0-17.5); Hypochromasia Moderate; MCH 21.1 pg (25.0-35.0); MCHC 30.9 g/dL (31.0-37.0); MCV 68.4 fL (80.0-100.0); Mean Platelet Volume 8.3; Microcytosis Marked; RDW 17.5 % (11.5-15.5); WBC 5.9 k/uL (3.8-10.6)
[2024-07-16 04:56] LABS: Partial Thromboplastin Time 43.7 sec (22.0-30.0)
[2024-07-16 05:08] LABS: ALT 31 U/L (4-49); AST 42 U/L (17-59); African American GFR (CKD) >90 (>60 ml/min/1.73 sqM); Albumin 2.6 g/dL (3.5-5.0); Alkaline Phosphatase 50 U/L (38-126); Anion Gap 1 mmol/L; Blood Urea Nitrogen 15 mg/dL (9-20); Calcium 7.9 mg/dL (8.4-10.2); Carbon Dioxide 28 mmol/L (22-30); Chloride 108 mmol/L (98-107); Glucose 106 mg/dL (74-99); LDH 511 U/L (120-246); Non-African American GFR(CKD) 89 (>60 ml/min/1.73 sqM); Potassium 4.2 mmol/L (3.5-5.1); Sodium 137 mmol/L (137-145); Total Bilirubin 0.5 mg/dL (0.2-1.3); Total Protein 5.5 g/dL (6.3-8.2)
[2024-07-16 05:28] LABS: Band Neutrophils % 7 %; Eosinophils # (M) 0.18 k/uL (0-0.7); Monocytes # (M) 0.65 k/uL (0-1.0); Neutrophils % (M) 57 %; Nucleated Red Blood Cells 0 /100 WBC (0-0); Total Cells Counted 100
[2024-07-16 05:30] LABS: Ovalocytes Present; Platelet Count 80 k/uL (150-450)
[2024-07-16 05:35] LABS: Glucose,Whole Blood 118 mg/dL (70-110)
--- NOTE | 2024-07-16 07:30 | XR ---
EXAMINATION TYPE: XR chest 1V portable DATE OF EXAM: 07/16/2024 COMPARISON: 07/16/2024 CLINICAL INDICATION: Male, 78 years old with history of Impella placement and on ventilator; , TECHNIQUE: XR chest 1V portable views of the chest. FINDINGS: ET tube 3.7 cm above santino. Central line stable in positioning. Diffuse interstitial pattern with bi lateral consolidation and pleural effusion stable. Mild cardiomegaly. Degenerative change of the spin e. Postsurgical change overlying cervical spine. No sizable pneumothorax. Arthropathy of the shoulder s. There is a linear device overlying the cardiac border stable prior exam. IMPRESSION: 1. Stable diffuse pleural-parenchymal changes or early CHF. Otherwise [facility], , 07/16/2024 7:28 AM
[2024-07-16] MEDS ORDERED: NITROGLYCERIN SL TABS 0.4 MG TAB SUBLINGUAL PRN (09:05)
--- NOTE | 2024-07-16 09:30 | XR ---
EXAMINATION TYPE: XR chest 1V portable DATE OF EXAM: 07/16/2024 COMPARISON: 07/16/2024 CLINICAL INDICATION: Male, 78 years old with history of og placement; , TECHNIQUE: XR chest 1V portable views of the chest. FINDINGS: ET tube 3.7 cm above santino. Central line stable in positioning. Diffuse interstitial pattern with bi lateral consolidation and pleural effusion stable. Mild cardiomegaly. Degenerative change of the spin e. Postsurgical change overlying cervical spine. No sizable pneumothorax. Arthropathy of the shoulder s. There is a linear device overlying the cardiac border stable prior exam. NG tube is seen coursing in the left upper quadrant and out of the field of view likely within the stomach. IMPRESSION: 1. Stable diffuse pleural-parenchymal changes or early CHF. Otherwise consider pneumonia. [facility], , 07/16/2024 9:28 AM
[2024-07-16] MEDS: ASPIRIN 325 MG TAB PO STA (10:15)
[2024-07-16] MEDS: ATORVASTATIN 80 MG TAB PO STA (10:15)
--- NOTE | 2024-07-16 10:19 | P.PN ---
Subjective Progress Note Date: 07/16/24 Hospital course: Patient is a 78-year-old male with PMH of rheumatoid arthritis, hypertension and BPH was brought to the emergency department via EMS for cardiopulmonary arrest. His initial laboratory evaluation shows WBC of 19.7, hemoglobin 14.6, MCV of 74.8, platelet count 2 8, sodium 138, potassium 4.3, chloride 117, bicarb 13, BUN 18, creatinine 1.8. His cardiac troponin has been trending upward from 0.588--->14.9. Patient was recently seen at the hospital for the complaint of chest pain. Patient was diagnosed with type II TN slightly with elevated troponins likely secondary to COVID-19 pneumonitis. Echocardiogram showed LVEF of 55% and moderate pulmonary hypertension. Viral panel negative. Chest x-ray interpreted independently shows diffuse patchy infiltrate with groundglass opacities and bilateral pleural effusion. Brain CT shows no acute intracranial process. Chest CTA is negative for pulmonary embolism and patchy opacities throughout both lungs with small bilateral pleural effusions. EKG interpreted independently shows sinus bradycardia with a regular branch block. T wave inversions in anteroseptal and lateral leads. Echocardiogram shows LVEF of 25 to 30% and ischemic cardiomyopathy with apical hypokinesis. Repeat brain CT shows concern for suspected left parietal subacute CVA compared to previous brain CT. Subjective: Patient seen and examined today. Patient he is off pressors. Propofol at 15 mcg/kg/min and fentanyl at 0.5 mcg/kg/h. Impella= P4. Tube feeds at target 35. Episode of hematuria overnight. Urine output is good. Objective: Vital signs reviewed General: intubated, sedated HEENT: normocephalic, atraumatic, no tracheal deviation Respiratory: symmetric chest rise, no cyanosis, ventilator dependent CVS: perfusing all extremities, no distal gangrene, trace pitting edema GI: soft, ND : no SPT, no CVAT, heard is present Neuro: sedated Pertinent Labs: WBC 5.9, hemoglobin 8.9, platelet count 80, neutrophilic bands 7, fibrinogen 596, sodium 137, potassium 4.2 chloride 108, bicarb 28, creatinine 0.75, calcium 7.9, LDH 511 Pertinent imaging: Chest x-ray independently interpreted continues to demonstrate bilateral pleural effusions similar to yesterday Assessment/Plan: Patient is a 78-year-old male with PMH of rheumatoid arthritis, hypertension and BPH was brought to the emergency department via EMS for cardiopulmonary arrest who is currently intubated and admitted to the medical ICU. Currently in cardiogenic shock on Impella support. 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 daily, statin 40 mg p.o. at bedtime Morphine 2 mg IV every 2 hour as needed for chest pain Continue cardiac monitoring Lipid panel done on 05/14/2024 TSH 7.63, free T4 0.8 Pulmonology consulted; note reviewed Continue weaning off on Impella support Continue with holiday sedation and weaning trials Patient off of pressors Neurology also consulted, repeat CT head and EEG pending #Bandemia with unknown etiology Blood culture x 2 UA Procalcitonin Follow-up on results Continue monitor for signs and symptoms for occult infection Repeat CBC #Normocytic anemia in the setting of Impella Hemoglobin 8.9, LDH 511 Continue to monitor CBC #Anion gap metabolic acidosis secondary to lactic acid, resolved #Euthyroid sick syndrome secondary above TSH 7.63, free T4 - 0.8 #Hypermagnesemia, resolved Mag 2.0 Continue monitor magnesium level Chronic conditions: BPH: Resume Flomax Hypertension: Hold nifedipine DVT prophylaxis: Heparin drip CODE STATUS: DNR/DNI Anticipated discharge place: Pending clinical course I have seen and evaluated the patient today. Discussed with the resident and agree with the residents finding and plan as documented in the resident's note. Changes highlighted in blue font. Objective - Vital Signs Vital signs: Vital Signs Temp 99.4 F 07/16/24 08:00 Pulse 56 L 07/16/24 09:00 Resp 18 07/16/24 09:00 BP 104/51 07/14/24 08:15 Pulse Ox 96 07/16/24 09:00 FiO2 40 07/16/24 08:11 Intake & Output 07/15/24 07/16/24 07/16/24 18:59 06:59 18:59 Intake Total 1338.931 968.326 69.072 Output Total 2580 415 105 Balance -1241.069 553.326 -35.928 Weight 106.8 kg 110 kg Intake: IV 315 319.2 63.6 0.9 KVO @ 20 240 80 Sodium Bicarb (1 Meq/ml) 167.2 45.6 12.5 ml In Dextrose 5% in Water 500 ml @ Per Protocol IV DIRECTED HOLLI Rx#:[id number] a line x 2 75 72 18 Intake, IV Titration 423.931 444.126 5.472 Amount Heparin Sod,Pork in 0.45% 172.734 107.747 NaCl 25,000 unit In 0.45 % NaCl 1 250ml.bag @ 11. 023 UNITS/KG/HR 10 mls/hr IV .Q24H HOLLI Rx#: [id number] Nitroglycerin-D5w Pmx 50 3.925 2.75 mg In Dextrose/Water 1 250ml.bag @ 5 MCG/MIN 1.5 mls/hr IV .Q24H HOLLI Rx#: [id number] Norepinephrine 8 mg In 28.142 Sodium Chloride 0.9% 250 ml @ 0.19 MCG/KG/MIN 33. 353 mls/hr IV .Q7H45M [facility] Rx#:[id number] fentaNYL (PF). 1,000 mcg 16.557 96.975 In Sodium Chloride 0.9% 80 ml @ 0.5 MCG/KG/HR 4. 536 mls/hr IV .Q22H3M [facility]LLI Rx#:[id number] propofoL 1,000 mg In 202.573 239.404 2.722 Empty Bag 1 bag @ 15 MCG/ KG/MIN 8.165 mls/hr IV . [id number] [facility]LLI Rx#:[id number] Oral 60 Tube Feeding 420 175 Other 120 30 Output: Urine 2580 415 105 Other: Voiding Method Indwelling Catheter Indwelling Catheter ABP, PAP, CO, CI - Last Documented Arterial Blood Pressure 155/52 - Labs CBC & Chem 7: 07/16/24 04:20 07/16/24 04:20 Labs: Abnormal Lab Results - Last 24 Hours (Table) 07/15/24 07/15/24 07/15/24 Range/Units 11:53 14:47 14:53 RBC (4.30-5.90) m/uL Hgb (13.0-17.5) gm/dL Hct (39.0-53.0) % MCV (80.0-100.0) fL MCH (25.0-35.0) pg MCHC (31.0-37.0) g/dL RDW (11.5-15.5) % Plt Count (150-450) k/uL APTT (22.0-30.0) sec Fibrinogen (200-500) mg/dL ABG pH (7.35-7.45) ABG pCO2 49 H (35-45) mmHg ABG pO2 39 L* (83-108) mmHg ABG HCO3 27 H (21-25) mmol/L ABG Total CO2 27 H 28 H (19-24) mmol/L ABG O2 Saturation 97.4 H 69.3 L (94-97) % Hemoglobin 9.3 L 9.2 L (13.0-17.5) gm/dL Chloride (98-107) mmol/L Glucose (74-99) mg/dL POC Glucose (mg/dL) 144 H (70-110) mg/dL Calcium (8.4-10.2) mg/dL Lactate Dehydrogenase (120-246) U/L Total Protein (6.3-8.2) g/dL Albumin (3.5-5.0) g/dL Triglycerides (0.00-149.00) mg/dL HDL Cholesterol (40.00-60.00) mg/dL 07/15/24 07/15/24 07/15/24 Range/Units 15:48 15:48 15:48 RBC (4.30-5.90) m/uL Hgb (13.0-17.5) gm/dL Hct (39.0-53.0) % MCV (80.0-100.0) fL MCH (25.0-35.0) pg MCHC (31.0-37.0) g/dL RDW (11.5-15.5) % Plt Count (150-450) k/uL APTT (22.0-30.0) sec Fibrinogen 617 H (200-500) mg/dL ABG pH (7.35-7.45) ABG pCO2 (35-45) mmHg ABG pO2 (83-108) mmHg ABG HCO3 (21-25) mmol/L ABG Total CO2 (19-24) mmol/L ABG O2 Saturation (94-97) % Hemoglobin (13.0-17.5) gm/dL Chloride (98-107) mmol/L Glucose (74-99) mg/dL POC Glucose (mg/dL) (70-110) mg/dL Calcium (8.4-10.2) mg/dL Lactate Dehydrogenase 612 H (120-246) U/L Total Protein (6.3-8.2) g/dL Albumin (3.5-5.0) g/dL Triglycerides 150.00 H (0.00-149.00) mg/dL HDL Cholesterol 36.90 L (40.00-60.00) mg/dL 07/15/24 07/15/24 07/15/24 Range/Units 17:25 20:45 20:45 RBC (4.30-5.90) m/uL Hgb (13.0-17.5) gm/dL Hct (39.0-53.0) % MCV (80.0-100.0) fL MCH (25.0-35.0) pg MCHC (31.0-37.0) g/dL RDW (11.5-15.5) % Plt Count (150-450) k/uL APTT (22.0-30.0) sec Fibrinogen 616 H (200-500) mg/dL ABG pH (7.35-7.45) ABG pCO2 (35-45) mmHg ABG pO2 (83-108) mmHg ABG HCO3 (21-25) mmol/L ABG Total CO2 (19-24) mmol/L ABG O2 Saturation (94-97) % Hemoglobin (13.0-17.5) gm/dL Chloride (98-107) mmol/L Glucose (74-99) mg/dL POC Glucose (mg/dL) 131 H (70-110) mg/dL Calcium (8.4-10.2) mg/dL Lactate Dehydrogenase 529 H (120-246) U/L Total Protein (6.3-8.2) g/dL Albumin (3.5-5.0) g/dL Triglycerides (0.00-149.00) mg/dL HDL Cholesterol (40.00-60.00) mg/dL 07/16/24 07/16/24 07/16/24 Range/Units 00:41 04:20 04:20 RBC (4.30-5.90) m/uL Hgb (13.0-17.5) gm/dL Hct (39.0-53.0) % MCV (80.0-100.0) fL MCH (25.0-35.0) pg MCHC (31.0-37.0) g/dL RDW (11.5-15.5) % Plt Count (150-450) k/uL APTT 43.7 H (22.0-30.0) sec Fibrinogen 596 H (200-500) mg/dL ABG pH (7.35-7.45) ABG pCO2 (35-45) mmHg ABG pO2 (83-108) mmHg ABG HCO3 (21-25) mmol/L ABG Total CO2 (19-24) mmol/L ABG O2 Saturation (94-97) % Hemoglobin (13.0-17.5) gm/dL Chloride 108 H (98-107) mmol/L Glucose 106 H (74-99) mg/dL POC Glucose (mg/dL) 116 H (70-110) mg/dL Calcium 7.9 L (8.4-10.2) mg/dL Lactate Dehydrogenase 511 H (120-246) U/L Total Protein 5.5 L (6.3-8.2) g/dL Albumin 2.6 L (3.5-5.0) g/dL Triglycerides (0.00-149.00) mg/dL HDL Cholesterol (40.00-60.00) mg/dL 07/16/24 07/16/24 07/16/24 Range/Units 04:20 04:23 05:34 RBC 4.20 L (4.30-5.90) m/uL Hgb 8.9 L (13.0-17.5) gm/dL Hct 28.7 L (39.0-53.0) % MCV 68.4 L (80.0-100.0) fL MCH 21.1 L (25.0-35.0) pg MCHC 30.9 L (31.0-37.0) g/dL RDW 17.5 H (11.5-15.5) % Plt Count 80 L (150-450) k/uL APTT (22.0-30.0) sec Fibrinogen (200-500) mg/dL ABG pH 7.34 L (7.35-7.45) ABG pCO2 49 H (35-45) mmHg ABG pO2 (83-108) mmHg ABG HCO3 27 H (21-25) mmol/L ABG Total CO2 28 H (19-24) mmol/L ABG O2 Saturation (94-97) % Hemoglobin 9.0 L (13.0-17.5) gm/dL Chloride (98-107) mmol/L Glucose (74-99) mg/dL POC Glucose (mg/dL) 118 H (70-110) mg/dL Calcium (8.4-10.2) mg/dL Lactate Dehydrogenase (120-246) U/L Total Protein (6.3-8.2) g/dL Albumin (3.5-5.0) g/dL Triglycerides (0.00-149.00) mg/dL HDL Cholesterol (40.00-60.00) mg/dL
[2024-07-16 10:59] LABS: Appearance,Urine Cloudy (Clear); Bilirubin,Urine Negative (Negative); Blood,Urine Large (Negative); Color,Urine Light Red; Glucose,Urine (UA) Negative (Negative); Ketones,Urine Negative (Negative); Leukocyte Esterase,Urine Trace (Negative); Mucus,Urine Rare /hpf; Nitrite,Urine Negative (Negative); Protein,Urine 1+ (Negative); RBC,Urine >182 /hpf (0-5); Specific Gravity,Urine 1.031 (1.001-1.035); WBC,Urine 9 /hpf (0-5)
[2024-07-16 11:56] LABS: Glucose,Whole Blood 113 mg/dL (70-110)
--- NOTE | 2024-07-16 12:06 | P.PN ---
Subjective Progress Note Date: 07/16/24 This is a 78-year-old male patient with a history of rheumatoid arthritis, hypertension, BPH. He was recently here in May for atypical chest pain and COVID-19 pneumonitis. Discharged home on May 15, 2024. Since that time he had been doing well. Pain the patient was having a 2 to 3-day history of worsening shortness of breath. He was active yesterday and cleaning out his garage and did complain of shortness of breath and some chest discomfort. He developed worsening shortness of breath throughout the night. EMS was called and the arrival the patient had collapse. He was pulseless and CPR was started taking approximately 5 minutes until return of spontaneous circulation. He was brought in and being assisted with a bag valve mask device and a pulse ox of 74 and then intubated in the emergency department. He was brought up to the intensive care unit. He is currently intubated, sedated on the mechanical ventilator at a rate of 24, tidal volume 450, FiO2 90% and a PEEP of 10. Blood gases had revealed a PaO2 of 70, pCO2 of 62 and a pH of 7.14 on 100% FiO2. He is on fentanyl at 1.5 mcg/kg/h. He is currently on a heparin drip per weight- based protocol. Norepinephrine at 13.5 mcg/min. Propofol at 30 mcg/kg/min. CT scan of the brain revealed no acute findings. CT angiogram revealed no evidence of pulmonary embolism. There is small bilateral effusions. Some patchy airspace opacity/consolidation throughout both lungs. Mild groundglass opacities. White count 19.7. Hemoglobin 14.6. Platelets 208. Sodium 138. Potassium 4.3. Bicarb 13. BUN 18. Creatinine 1.13. Glucose 313. Troponin 0.588. proBNP 2770. TSH 7.36. Viral screen is negative. The patient is seen today July 12, 2024 in follow-up in the intensive care unit. He remains intubated sedated on the mechanical ventilator. Currently in assist-control mode with a rate of 30, tidal volume 450, FiO2 40% and a PEEP of 10. Morning blood gases revealed a PaO2 of 163, pCO2 of 26 and a pH of 7.49 and 50% FiO2. The PEEP will be decreased to 5. He is currently on cefazolin. Remains on bronchodilators. He is continued on a heparin drip per weight-based protocol. Norepinephrine at 0.03 mcg/kg/min. Propofol at 35 mcg/kg/min. Fentanyl drip at 1.25 mcg/kg/h. White count 9.6. Hemoglobin 11.4. Platelets 166. Sodium 136. Potassium 3.9. Bicarb 18. BUN 29. Creatinine 1.47. Glucose 114. Continue tube feedings of vital AF at a rate of 10 with a goal of 57. Will be on hold for cardiac catheterization today 07/13/2024, the patient is being seen for a follow-up. The patient remains intubated on the mechanical ventilator. He requires mechanical support for his cardiogenic shock postcardiac arrest and the patient is an Impella with a P7 support and a 3.1 L/min of augmentation. The patient remains on sedatives and the patient is currently on propofol the patient is 0.7. On the mechanical ventilator at a rate of 30, tidal volume of 450, FiO2 40% with PEEP of 5. Blood gas showed pH of 7.46 with a pCO2 of 27 and pO2 of 97. Chest x-ray shows cardiomegaly without any acute abnormalities. Orotracheal tubes are in good perfusion. The patient is currently on KVO IV fluids. The patient is on no pressors and the patient was taken off norepinephrine and is producing adequate amount of urine output in the order of 50 cc an hour. He remains on IV heparin. Creatinine is improved and the patient's creatinine peaked at 1.47 and currently is down to 1.08. He has a left subclavian triple-lumen catheter in place. Religious Leader on the case and the patient underwent a cardiac catheterization on 07/12/2024 and the patient was found to have extremely calcified right and left coronary system with evidence of triple-vessel coronary artery disease and severely elevated left ventricular end-diastolic pressure. The white cell count at 7.9 with a hemoglobin 10.8 and a platelet count of 123. Sodium levels at 135, bicarbonate 18, BUN 27 with a creatinine of 1.08. LDH level is at 984. The echocardiogram was completed and the patient was found to have severe impairment of the LV function with an ejection fraction of 25 to 30%. There is also severe cardiomyopathy with wall motion abnormalities involving the apical area that was quite hypokinetic. The patient remains on aspirin. The patient remains on statins and the patient is currently on Lipitor 40 mg p.o. daily. Remains on IV heparin. He is also on vital AF for enteral feeding and nutritional support. Religious Leader on the case. Cardiothoracic surgery was also involved in his care. The patient was deemed a high surgical risk for coronary intervention and bypass. On 07/14/2024, the patient is being seen for a follow-up. The patient remains sedated and the patient is currently on a combination of propofol running at 40 mcg/kg/min and fentanyl at 0.75 mcg/kg/h. The patient remains well sedated on mechanical ventilator and Impella for mechanical support for cardiogenic shock. This morning, the patient's Impella has been switched to P4 support with an augmentation of 2.5 L/min. The patient remains off pressors. Is producing adequate amount of urine output. Fluid balance is +1 L over the past 24 hours. He is hemolyzing and the hemoglobin is currently down to 9.9. Most recent LDH is at 946. At the same time, the patient remains on the mechanical ventilator. He is on assist-control mode with rate of 18, tidal volume of 450, FiO2 40% with a PEEP of 5. The blood gas from today shows a pH of 7.33 with a pCO2 of 41 and pO2 of 97. Chest x-ray is consistent with CHF/increased incisional markings consistent with heart failure. Orotracheal tube is in a good location. The patient has diffuse interstitial pattern bilaterally along with cardiomegaly and he has developed some small bilateral pleural effusions worse on the left. He remains on IV heparin. Remains on enteral feeding for additional support and the patient is currently on vital AF at rate of 35 cc an hour. IV fluids are currently at KVO. The patient's cardiac rhythm is sinus. The white cell count is 6.7 with a hemoglobin 9.9 and a platelet count of 106. The BUN is 17 with a creatinine of 0.8 and a sodium levels at 137, bicarb is at 22. 07/15/2024, the patient is being seen for a follow-up. The patient has signs of anoxic encephalopathy. The patient was given sedation holiday yesterday and he did not demonstrate adequate neurologic recovery. It was noted that he was not moving his right side effectively compared to the left. Based on that, the patient was placed back on propofol which is currently running at 40 mcg/kg/min. Attempts to wean off his Impella failed yesterday the patient became hypote nsive. The patient was given IV fluids and norepinephrine and the patient is currently off norepinephrine. He has Impella is augmenting at P4 level with 2.5 L/min augmentation. Fluid balance is +600 cc over the past 24 hours and the patient is producing urine output in the order of 30 to 40 cc an hour. No diuretics for now. Chest x-ray still showing CHF and bilateral pleural effusion right more than left. Remains on mechanical ventilator, assist-control mode with rate of 16, tidal volume of 450, FiO2 40% with a PEEP of 5. pH is 7.34 with a pCO2 of 43 and pO2 of 86. He is doing abdominal breathing and based on that, the patient was switched to pressure control mode of mechanical venti lation. He is on vital AF at a rate of 35 cc an hour. The white cell count is 7.4, hemoglobin 9.6, his platelet count is at 116. LDH level is 625. Electrolytes are all within normal limits with a BUN of 14 and a creatinine of 0.7. Noted the patient's platelet count has dropped during this current admission and the patient remains on IV heparin. A limited echocardiogram was done yesterday and the patient was found to have impaired LV function with an estimated ejection fraction of around 40%. The patient also had segmental wall motion abnormalities. There was moderate LV dysfunction based on the echocardiogram. 07/16/2024, patient being seen for follow up. currently sedated on propopfol 25. fentanyl paused. was given sedation holiday yesterday and did not demonstrate any neurologic reovery. not moving right side compared to left. yesterday had episode of hematuria. heparain paused for 2 hours then resumed. no more episodes of hematuria. currenly on P4 with 2.5 L/min augmentation. went as high as P6. scheduled to go to laundry laborer today to stent LAD and wean him off the impella. Fluid balance -687 over past 24 hours. Producing urine at a rate of 30 cc/hr. Was given 40 mg IV lasix once yesterday. Remains on mechanical ventilator, pressure-control mode with rate of 18, expiratory time of 0.8, PEEP of 5. pH is 7.34 with a pCO2 of 49 and pO2 of 92. He is on vital AF at a rate of 35 cc an hour. The white cell count is 5.9, hemoglobin 8.9, his platelet count is at 80. LDH level is 511. Electrolytes are all within normal limits with a BUN of 15 and a creatinine of 0.7. Noted the patient's platelet count has dropped during this current admission and the patient remains on IV heparin. Yesterday, Brain CT scan reported no acute intracranial bleed. Focal region of low-attenuation within the left parietal lobe which may represent an age indeterminate infarct. Neurology following. Repeat CT scan scheduled for today. Objective - Vital Signs Vital signs: Vital Signs Temp 98.6 F 07/16/24 04:00 Pulse 55 L 07/16/24 06:00 Resp 18 07/16/24 06:00 BP 104/51 07/14/24 08:15 Pulse Ox 97 07/16/24 06:00 FiO2 40 07/16/24 04:00 Intake & Output 07/15/24 07/16/24 07/16/24 18:59 06:59 18:59 Intake Total 1338.931 968.326 23.922 Output Total 2580 415 45 Balance -1241.069 553.326 -21.078 Weight 106.8 kg 110 kg Intake: IV 315 319.2 21.2 0.9 KVO @ 20 240 80 Sodium Bicarb (1 Meq/ml) 167.2 15.2 12.5 ml In Dextrose 5% in Water 500 ml @ Per Protocol IV DIRECTED HOLLI Rx#:[id number] a line x 2 75 72 6 Intake, IV Titration 423.931 444.126 2.722 Amount Heparin Sod,Pork in 0.45% 172.734 107.747 NaCl 25,000 unit In 0.45 % NaCl 1 250ml.bag @ 11. 023 UNITS/KG/HR 10 mls/hr IV .Q24H HO[facility]I Rx#: [id number] Nitroglycerin-D5w Pmx 50 3.925 mg In Dextrose/Water 1 250ml.bag @ 5 MCG/MIN 1.5 mls/hr IV .Q24H [facility]I Rx#: [id number] Norepinephrine 8 mg In 28.142 Sodium Chloride 0.9% 250 ml @ 0.19 MCG/KG/MIN 33. 353 mls/hr IV .Q7H45M [facility] Rx#:[id number] fentaNYL (PF). 1,000 mcg 16.557 96.975 In Sodium Chloride 0.9% 80 ml @ 0.5 MCG/KG/HR 4. 536 mls/hr IV .Q22H3M [facility]I Rx#:[id number] propofoL 1,000 mg In 202.573 239.404 2.722 Empty Bag 1 bag @ 15 MCG/ KG/MIN 8.165 mls/hr IV . [id number] [facility]I Rx#:[id number] Oral 60 Tube Feeding 420 175 Other 120 30 Output: Urine 2580 415 45 Other: Voiding Method Indwelling Catheter Indwelling Catheter ABP, PAP, CO, CI - Last Documented Arterial Blood Pressure 141/50 - Exam GENERAL EXAM: Intubated, sedated 78-year-old male, on the mechanical ventilator, in no apparent distress. Patient is currently on propofol HEAD: Normocephalic. EYES: Normal reaction of pupils, equal size. NOSE: Clear with pink turbinates. THROAT: Oral endotracheal and gastric tube secured in place. No erythema or exudates. NECK: No masses, no JVD. CHEST: No chest wall deformity. LUNGS: Equal air entry with bilateral scattered rhonchi. CVS: S1 and S2 normal with no audible murmur, regular rhythm. ABDOMEN: No hepatosplenomegaly, normal bowel sounds, no guarding or rigidity. SPINE: No scoliosis or deformity SKIN: No rashes CENTRAL NERVOUS SYSTEM: Sedated, tone is normal in all 4 extremities. EXTREMITIES: There is no peripheral edema. No clubbing, no cyanosis. Peripheral pulses diminished in the lower extremities although there is still some weak pulses. Extremities are cold. No mottling. No cyanosis. - Labs CBC & Chem 7: 07/16/24 04:20 07/16/24 04:20 Labs: Abnormal Lab Results - Last 24 Hours (Table) 07/15/24 07/15/24 07/15/24 Range/Units 11:53 14:47 14:53 RBC (4.30-5.90) m/uL Hgb (13.0-17.5) gm/dL Hct (39.0-53.0) % MCV (80.0-100.0) fL MCH (25.0-35.0) pg MCHC (31.0-37.0) g/dL RDW (11.5-15.5) % Plt Count (150-450) k/uL APTT (22.0-30.0) sec Fibrinogen (200-500) mg/dL ABG pH (7.35-7.45) ABG pCO2 49 H (35-45) mmHg ABG pO2 39 L* (83-108) mmHg ABG HCO3 27 H (21-25) mmol/L ABG Total CO2 27 H 28 H (19-24) mmol/L ABG O2 Saturation 97.4 H 69.3 L (94-97) % Hemoglobin 9.3 L 9.2 L (13.0-17.5) gm/dL Chloride (98-107) mmol/L Glucose (74-99) mg/dL POC Glucose (mg/dL) 144 H (70-110) mg/dL Calcium (8.4-10.2) mg/dL Lactate Dehydrogenase (120-246) U/L Total Protein (6.3-8.2) g/dL Albumin (3.5-5.0) g/dL Triglycerides (0.00-149.00) mg/dL HDL Cholesterol (40.00-60.00) mg/dL 07/15/24 07/15/24 07/15/24 Range/Units 15:48 15:48 15:48 RBC (4.30-5.90) m/uL Hgb (13.0-17.5) gm/dL Hct (39.0-53.0) % MCV (80.0-100.0) fL MCH (25.0-35.0) pg MCHC (31.0-37.0) g/dL RDW (11.5-15.5) % Plt Count (150-450) k/uL APTT (22.0-30.0) sec Fibrinogen 617 H (200-500) mg/dL ABG pH (7.35-7.45) ABG pCO2 (35-45) mmHg ABG pO2 (83-108) mmHg ABG HCO3 (21-25) mmol/L ABG Total CO2 (19-24) mmol/L ABG O2 Saturation (94-97) % Hemoglobin (13.0-17.5) gm/dL Chloride (98-107) mmol/L Glucose (74-99) mg/dL POC Glucose (mg/dL) (70-110) mg/dL Calcium (8.4-10.2) mg/dL Lactate Dehydrogenase 612 H (120-246) U/L Total Protein (6.3-8.2) g/dL Albumin (3.5-5.0) g/dL Triglycerides 150.00 H (0.00-149.00) mg/dL HDL Cholesterol 36.90 L (40.00-60.00) mg/dL 07/15/24 07/15/24 07/15/24 Range/Units 17:25 20:45 20:45 RBC (4.30-5.90) m/uL Hgb (13.0-17.5) gm/dL Hct (39.0-53.0) % MCV (80.0-100.0) fL MCH (25.0-35.0) pg MCHC (31.0-37.0) g/dL RDW (11.5-15.5) % Plt Count (150-450) k/uL APTT (22.0-30.0) sec Fibrinogen 616 H (200-500) mg/dL ABG pH (7.35-7.45) ABG pCO2 (35-45) mmHg ABG pO2 (83-108) mmHg ABG HCO3 (21-25) mmol/L ABG Total CO2 (19-24) mmol/L ABG O2 Saturation (94-97) % Hemoglobin (13.0-17.5) gm/dL Chloride (98-107) mmol/L Glucose (74-99) mg/dL POC Glucose (mg/dL) 131 H (70-110) mg/dL Calcium (8.4-10.2) mg/dL Lactate Dehydrogenase 529 H (120-246) U/L Total Protein (6.3-8.2) g/dL Albumin (3.5-5.0) g/dL Triglycerides (0.00-149.00) mg/dL HDL Cholesterol (40.00-60.00) mg/dL 07/16/24 07/16/24 07/16/24 Range/Units 00:41 04:20 04:20 RBC (4.30-5.90) m/uL Hgb (13.0-17.5) gm/dL Hct (39.0-53.0) % MCV (80.0-100.0) fL MCH (25.0-35.0) pg MCHC (31.0-37.0) g/dL RDW (11.5-15.5) % Plt Count (150-450) k/uL APTT 43.7 H (22.0-30.0) sec Fibrinogen 596 H (200-500) mg/dL ABG pH (7.35-7.45) ABG pCO2 (35-45) mmHg ABG pO2 (83-108) mmHg ABG HCO3 (21-25) mmol/L ABG Total CO2 (19-24) mmol/L ABG O2 Saturation (94-97) % Hemoglobin (13.0-17.5) gm/dL Chloride 108 H (98-107) mmol/L Glucose 106 H (74-99) mg/dL POC Glucose (mg/dL) 116 H (70-110) mg/dL Calcium 7.9 L (8.4-10.2) mg/dL Lactate Dehydrogenase 511 H (120-246) U/L Total Protein 5.5 L (6.3-8.2) g/dL Albumin 2.6 L (3.5-5.0) g/dL Triglycerides (0.00-149.00) mg/dL HDL Cholesterol (40.00-60.00) mg/dL 07/16/24 07/16/24 07/16/24 Range/Units 04:20 04:23 05:34 RBC 4.20 L (4.30-5.90) m/uL Hgb 8.9 L (13.0-17.5) gm/dL Hct 28.7 L (39.0-53.0) % MCV 68.4 L (80.0-100.0) fL MCH 21.1 L (25.0-35.0) pg MCHC 30.9 L (31.0-37.0) g/dL RDW 17.5 H (11.5-15.5) % Plt Count 80 L (150-450) k/uL APTT (22.0-30.0) sec Fibrinogen (200-500) mg/dL ABG pH 7.34 L (7.35-7.45) ABG pCO2 49 H (35-45) mmHg ABG pO2 (83-108) mmHg ABG HCO3 27 H (21-25) mmol/L ABG Total CO2 28 H (19-24) mmol/L ABG O2 Saturation (94-97) % Hemoglobin 9.0 L (13.0-17.5) gm/dL Chloride (98-107) mmol/L Glucose (74-99) mg/dL POC Glucose (mg/dL) 118 H (70-110) mg/dL Calcium (8.4-10.2) mg/dL Lactate Dehydrogenase (120-246) U/L Total Protein (6.3-8.2) g/dL Albumin (3.5-5.0) g/dL Triglycerides (0.00-149.00) mg/dL HDL Cholesterol (40.00-60.00) mg/dL Assessment and Plan Plan: #. Outside the hospital cardiac arrest Required 5 minutes of CPR prior to return of spontaneous circulation Rule out underlying anoxic encephalopathy. CT Brain yesterday displayed no acute intracranial bleed. Focal region of low-attenuation within the left parietal lobe which may represent an age indeterminate infarct. Will repeat CT brain scan per neurology #. Encephalopathy, rule out anoxic encephalopathy The patient remains on propofol. Sedation holiday failed yesterday and there is probably some right-sided weakness noted on examination. Repeat sedation holiday to confirm right-sided weakness #. Acute non-ST segment elevation myocardial infarction status post cardiac catheterization indicating triple-vessel coronary artery disease #. Severe ischemic cardiomyopathy with an ejection fraction of 25 to 30% Segmental wall motion abnormalities. Limited echocardiogram shows impaired LV function and estimated ejection fraction is at 40% #. Cardiogenic shock secondary to above and the patient has an Impella for mechanical support P4 augmentation, No pressors this morning #. Acute hypoxemic respiratory failure secondary to above Requiring intubation and mechanical ventilatory support. Chest x-ray is consistent with CHF and bilateral pleural effusions. #. Thrombocytopenia Patient with episode of hematuria yesterday, heparin paused for 2 hours. Hemat uria resolved Still on IV heparin #. Anemia, multifactorial, acute Hemoglobin stable for now. This could be potentially raised to Impella induced hemolysis. Severe metabolic acidosis at time of admission, improvement in acid-base status Acute kidney injury, recovered and the patient is producing adequate amount of urine output Recent discharge in May 2024 for atypical chest pain and COVID-19 infection/pneumonitis Rheumatoid arthritis Hypertension Benign prostatic hyperplasia Plan: Continue ventilator support, switch this patient to a pressure control mode of mechanical ventilation with a pressure control of 18, expiratory time of 0.8, PEEP of 5 Give the patient sedation holiday and assess mental status change, assess right side versus left side function Will repeat CT brain scan per neurology Neurology following Keep the Impella for hemodynamic support pressure urine output and cardiac output. Continue aspirin Continue IV heparin Monitor platelet count Patient is currently off pressors Hold diuretics Continue tube feedings for nutritional support currently vital AF 1.2 at 10 with a goal of 57 Schedule for [employer] today for PCI at LAD, will try to wean off Impella We will continue to follow and make further recommendations based on his clinical status Condition remains critical. Prognosis poor based on above-mentioned comorbidities. Will continue to follow along with the rest of the consultants. His evaluation was done more than 30 minutes.
--- NOTE | 2024-07-16 13:56 | P.PN ---
Subjective Progress Note Date: 07/16/24 This is a 78-year-old male patient with a history of rheumatoid arthritis, hypertension, BPH. He was recently here in May for atypical chest pain and COVID-19 pneumonitis. Discharged home on May 15, 2024. Since that time he had been doing well. Pain the patient was having a 2 to 3-day history of worsening shortness of breath. He was active yesterday and cleaning out his garage and did complain of shortness of breath and some chest discomfort. He developed worsening shortness of breath throughout the night. EMS was called and the arrival the patient had collapse. He was pulseless and CPR was started taking approximately 5 minutes until return of spontaneous circulation. He was brought in and being assisted with a bag valve mask device and a pulse ox of 74 and then intubated in the emergency department. He was brought up to the intensive care unit. He is currently intubated, sedated on the mechanical ventilator at a rate of 24, tidal volume 450, FiO2 90% and a PEEP of 10. Blood gases had revealed a PaO2 of 70, pCO2 of 62 and a pH of 7.14 on 100% FiO2. He is on fentanyl at 1.5 mcg/kg/h. He is currently on a heparin drip per weight- based protocol. Norepinephrine at 13.5 mcg/min. Propofol at 30 mcg/kg/min. CT scan of the brain revealed no acute findings. CT angiogram revealed no evidence of pulmonary embolism. There is small bilateral effusions. Some patchy airspace opacity/consolidation throughout both lungs. Mild groundglass opacities. White count 19.7. Hemoglobin 14.6. Platelets 208. Sodium 138. Potassium 4.3. Bicarb 13. BUN 18. Creatinine 1.13. Glucose 313. Troponin 0.588. proBNP 2770. TSH 7.36. Viral screen is negative. The patient is seen today July 12, 2024 in follow-up in the intensive care unit. He remains intubated sedated on the mechanical ventilator. Currently in assist-control mode with a rate of 30, tidal volume 450, FiO2 40% and a PEEP of 10. Morning blood gases revealed a PaO2 of 163, pCO2 of 26 and a pH of 7.49 and 50% FiO2. The PEEP will be decreased to 5. He is currently on cefazolin. Remains on bronchodilators. He is continued on a heparin drip per weight-based protocol. Norepinephrine at 0.03 mcg/kg/min. Propofol at 35 mcg/kg/min. Fentanyl drip at 1.25 mcg/kg/h. White count 9.6. Hemoglobin 11.4. Platelets 166. Sodium 136. Potassium 3.9. Bicarb 18. BUN 29. Creatinine 1.47. Glucose 114. Continue tube feedings of vital AF at a rate of 10 with a goal of 57. Will be on hold for cardiac catheterization today 07/13/2024, the patient is being seen for a follow-up. The patient remains intubated on the mechanical ventilator. He requires mechanical support for his cardiogenic shock postcardiac arrest and the patient is an Impella with a P7 support and a 3.1 L/min of augmentation. The patient remains on sedatives and the patient is currently on propofol the patient is 0.7. On the mechanical ventilator at a rate of 30, tidal volume of 450, FiO2 40% with PEEP of 5. Blood gas showed pH of 7.46 with a pCO2 of 27 and pO2 of 97. Chest x-ray shows cardiomegaly without any acute abnormalities. Orotracheal tubes are in good perfusion. The patient is currently on KVO IV fluids. The patient is on no pressors and the patient was taken off norepinephrine and is producing adequate amount of urine output in the order of 50 cc an hour. He remains on IV heparin. Creatinine is improved and the patient's creatinine peaked at 1.47 and currently is down to 1.08. He has a left subclavian triple-lumen catheter in place. Academic Affairs Manager on the case and the patient underwent a cardiac catheterization on 07/12/2024 and the patient was found to have extremely calcified right and left coronary system with evidence of triple-vessel coronary artery disease and severely elevated left ventricular end-diastolic pressure. The white cell count at 7.9 with a hemoglobin 10.8 and a platelet count of 123. Sodium levels at 135, bicarbonate 18, BUN 27 with a creatinine of 1.08. LDH level is at 984. The echocardiogram was completed and the patient was found to have severe impairment of the LV function with an ejection fraction of 25 to 30%. There is also severe cardiomyopathy with wall motion abnormalities involving the apical area that was quite hypokinetic. The patient remains on aspirin. The patient remains on statins and the patient is currently on Lipitor 40 mg p.o. daily. Remains on IV heparin. He is also on vital AF for enteral feeding and nutritional support. Academic Affairs Manager on the case. Cardiothoracic surgery was also involved in his care. The patient was deemed a high surgical risk for coronary intervention and bypass. On 07/14/2024, the patient is being seen for a follow-up. The patient remains sedated and the patient is currently on a combination of propofol running at 40 mcg/kg/min and fentanyl at 0.75 mcg/kg/h. The patient remains well sedated on m echanical ventilator and Impella for mechanical support for cardiogenic shock. This morning, the patient's Impella has been switched to P4 support with an augmentation of 2.5 L/min. The patient remains off pressors. Is producing adequate amount of urine output. Fluid balance is +1 L over the past 24 hours. He is hemolyzing and the hemoglobin is currently down to 9.9. Most recent LDH is at 946. At the same time, the patient remains on the mechanical ventilator. He is on assist-control mode with rate of 18, tidal volume of 450, FiO2 40% with a PEEP of 5. The blood gas from today shows a pH of 7.33 with a pCO2 of 41 and pO2 of 97. Chest x-ray is consistent with CHF/increased incisional markings consistent with heart failure. Orotracheal tube is in a good location. The patient has diffuse interstitial pattern bilaterally along with cardiomegaly and he has developed some small bilateral pleural effusions worse on the left. He remains on IV heparin. Remains on enteral feeding for additional support and the patient is currently on vital AF at rate of 35 cc an hour. IV fluids are currently at KVO. The patient's cardiac rhythm is sinus. The white cell count is 6.7 with a hemoglobin 9.9 and a platelet count of 106. The BUN is 17 with a creatinine of 0.8 and a sodium levels at 137, bicarb is at 22. 07/15/2024, the patient is being seen for a follow-up. The patient has signs of anoxic encephalopathy. The patient was given sedation holiday yesterday and he did not demonstrate adequate neurologic recovery. It was noted that he was not moving his right side effectively compared to the left. Based on that, the patient was placed back on propofol which is currently running at 40 mcg/kg/min. Attempts to wean off his Impella failed yesterday the patient became hypot ensive. The patient was given IV fluids and norepinephrine and the patient is currently off norepinephrine. He has Impella is augmenting at P4 level with 2.5 L/min augmentation. Fluid balance is +600 cc over the past 24 hours and the patient is producing urine output in the order of 30 to 40 cc an hour. No diuretics for now. Chest x-ray still showing CHF and bilateral pleural effusion right more than left. Remains on mechanical ventilator, assist-control mode with rate of 16, tidal volume of 450, FiO2 40% with a PEEP of 5. pH is 7.34 with a pCO2 of 43 and pO2 of 86. He is doing abdominal breathing and based on that, the patient was switched to pressure control mode of mechanical vent ilation. He is on vital AF at a rate of 35 cc an hour. The white cell count is 7.4, hemoglobin 9.6, his platelet count is at 116. LDH level is 625. Electrolytes are all within normal limits with a BUN of 14 and a creatinine of 0.7. Noted the patient's platelet count has dropped during this current admission and the patient remains on IV heparin. A limited echocardiogram was done yesterday and the patient was found to have impaired LV function with an estimated ejection fraction of around 40%. The patient also had segmental wall motion abnormalities. There was moderate LV dysfunction based on the echocardiogram. 07/16/2024, the patient is being seen for a follow-up. Events from yesterday was noted. Following a failed sedation holiday, the patient was noted to have some right-sided weakness. Based on that, a CAT scan of the brain was done and it showed a low-attenuation area in the left parietal lobe suspecting an evolving stroke. Another sedation holiday will be given today. Meanwhile, the patient will be kept on Impella pending cardiac catheterization and coronary interv ention as planned by cardiology. The patient is currently on a pressure control mode of mechanical ventilation, at rate of 18, pressure control of 20, FiO2 of 40% with a PEEP of 5. Blood gas showed a pH of 7.34 with pCO2 49 and pO2 of 92. Remains on IV heparin. He had some episodic hematuria but subsided. Fluid balance is -687 cc over the past 24 hours. Patient was receiving enteral feeding for nutritional support and currently it is on hold in preparation for cardiac catheterization. He was receiving vital AF at rate of 35 cc an hour. IV fluids are currently at KVO. The patient remains on IV Lasix. Meanwhile, the white cell count is 5.9, hemoglobin is 8.9 and a platelet count is 20. The patient's BUN is 15 with a creatinine of 0.7. Serum bicarb is at 28. Sodium levels at 137 and a potassium level is at 4.2. The patient remains on Impella with P4 support and 2.5 liters per minute of cardiac augmentation. The renal function remains stable with a BUN of 15 and a creatinine of 0.7. The LDH level is 511. Chest x-ray findings from today shows CHF, findings are essentially stable. He is afebrile. We discussed Objective - Vital Signs Vital signs: Vital Signs Temp 98.1 F 07/16/24 12:00 Pulse 56 L 07/16/24 13:30 Resp 18 07/16/24 13:30 BP 104/51 07/14/24 08:15 Pulse Ox 99 07/16/24 13:30 FiO2 40 07/16/24 12:00 Intake & Output 07/15/24 07/16/24 07/16/24 18:59 06:59 18:59 Intake Total 1338.931 968.326 305.587 Output Total 2580 415 235 Balance -1241.069 553.326 70.587 Weight 106.8 kg 110 kg 110 kg Intake: IV 315 319.2 148.4 0.9 KVO @ 20 240 80 Sodium Bicarb (1 Meq/ml) 167.2 106.4 12.5 ml In Dextrose 5% in Water 500 ml @ Per Protocol IV DIRECTED [facility] Rx#:[id number] a line x 2 75 72 42 Intake, IV Titration 423.931 444.126 97.187 Amount Heparin Sod,Pork in 0.45% 172.734 107.747 NaCl 25,000 unit In 0.45 % NaCl 1 250ml.bag @ 11. 023 UNITS/KG/HR 10 mls/hr IV .Q24H [facility] Rx#: [id number] Nitroglycerin-D5w Pmx 50 3.925 26.425 mg In Dextrose/Water 1 250ml.bag @ 5 MCG/MIN 1.5 mls/hr IV .Q24H [facility] Rx#: [id number] Norepinephrine 8 mg In 28.142 Sodium Chloride 0.9% 250 ml @ 0.19 MCG/KG/MIN 33. 353 mls/hr IV .Q7H45M [facility] Rx#:[id number] fentaNYL (PF). 1,000 mcg 16.557 96.975 0 In Sodium Chloride 0.9% 80 ml @ 0.5 MCG/KG/HR 4. 536 mls/hr IV .Q22H3M [facility] Rx#:[id number] propofoL 1,000 mg In 202.573 239.404 70.762 Empty Bag 1 bag @ 15 MCG/ KG/MIN 8.165 mls/hr IV . [id number] [facility] Rx#:[id number] Oral 60 Tube Feeding 420 175 Other 120 30 60 Output: Urine 2580 415 235 Other: Voiding Method Indwelling Catheter Indwelling Catheter Indwelling Catheter ABP, PAP, CO, CI - Last Documented Arterial Blood Pressure 158/54 - Exam GENERAL EXAM: Intubated, sedated 78-year-old male, on the mechanical ventilator, in no apparent distress. Patient is currently on a combination of propofol and fentanyl. HEAD: Normocephalic. EYES: Normal reaction of pupils, equal size. NOSE: Clear with pink turbinates. THROAT: Oral endotracheal and gastric tube secured in place. No erythema or exudates. NECK: No masses, no JVD. CHEST: No chest wall deformity. LUNGS: Equal air entry with bilateral scattered rhonchi. CVS: S1 and S2 normal with no audible murmur, regular rhythm. ABDOMEN: No hepatosplenomegaly, normal bowel sounds, no guarding or rigidity. SPINE: No scoliosis or deformity SKIN: No rashes CENTRAL NERVOUS SYSTEM: Sedated, tone is normal in all 4 extremities. EXTREMITIES: There is no peripheral edema. No clubbing, no cyanosis. Peripheral pulses diminished in the lower extremities although there is still some weak pulses. Extremities are cold. No mottling. No cyanosis. - Labs CBC & Chem 7: 07/16/24 04:20 07/16/24 04:20 Labs: Abnormal Lab Results - Last 24 Hours (Table) 07/15/24 07/15/24 07/15/24 Range/Units 14:47 14:53 15:48 RBC (4.30-5.90) m/uL Hgb (13.0-17.5) gm/dL Hct (39.0-53.0) % MCV (80.0-100.0) fL MCH (25.0-35.0) pg MCHC (31.0-37.0) g/dL RDW (11.5-15.5) % Plt Count (150-450) k/uL APTT (22.0-30.0) sec Fibrinogen 617 H (200-500) mg/dL ABG pH (7.35-7.45) ABG pCO2 49 H (35-45) mmHg ABG pO2 39 L* (83-108) mmHg ABG HCO3 27 H (21-25) mmol/L ABG Total CO2 27 H 28 H (19-24) mmol/L ABG O2 Saturation 97.4 H 69.3 L (94-97) % Hemoglobin 9.3 L 9.2 L (13.0-17.5) gm/dL Chloride (98-107) mmol/L Glucose (74-99) mg/dL POC Glucose (mg/dL) (70-110) mg/dL Calcium (8.4-10.2) mg/dL Lactate Dehydrogenase (120-246) U/L Total Protein (6.3-8.2) g/dL Albumin (3.5-5.0) g/dL Triglycerides (0.00-149.00) mg/dL HDL Cholesterol (40.00-60.00) mg/dL Urine Protein (Negative) Urine Blood (Negative) Ur Leukocyte Esterase (Negative) Urine RBC (0-5) /hpf Urine WBC (0-5) /hpf Urine Mucus (None) /hpf 07/15/24 07/15/24 07/15/24 Range/Units 15:48 15:48 17:25 RBC (4.30-5.90) m/uL Hgb (13.0-17.5) gm/dL Hct (39.0-53.0) % MCV (80.0-100.0) fL MCH (25.0-35.0) pg MCHC (31.0-37.0) g/dL RDW (11.5-15.5) % Plt Count (150-450) k/uL APTT (22.0-30.0) sec Fibrinogen (200-500) mg/dL ABG pH (7.35-7.45) ABG pCO2 (35-45) mmHg ABG pO2 (83-108) mmHg ABG HCO3 (21-25) mmol/L ABG Total CO2 (19-24) mmol/L ABG O2 Saturation (94-97) % Hemoglobin (13.0-17.5) gm/dL Chloride (98-107) mmol/L Glucose (74-99) mg/dL POC Glucose (mg/dL) 131 H (70-110) mg/dL Calcium (8.4-10.2) mg/dL Lactate Dehydrogenase 612 H (120-246) U/L Total Protein (6.3-8.2) g/dL Albumin (3.5-5.0) g/dL Triglycerides 150.00 H (0.00-149.00) mg/dL HDL Cholesterol 36.90 L (40.00-60.00) mg/dL Urine Protein (Negative) Urine Blood (Negative) Ur Leukocyte Esterase (Negative) Urine RBC (0-5) /hpf Urine WBC (0-5) /hpf Urine Mucus (None) /hpf 07/15/24 07/15/24 07/16/24 Range/Units 20:45 20:45 00:41 RBC (4.30-5.90) m/uL Hgb (13.0-17.5) gm/dL Hct (39.0-53.0) % MCV (80.0-100.0) fL MCH (25.0-35.0) pg MCHC (31.0-37.0) g/dL RDW (11.5-15.5) % Plt Count (150-450) k/uL APTT (22.0-30.0) sec Fibrinogen 616 H (200-500) mg/dL ABG pH (7.35-7.45) ABG pCO2 (35-45) mmHg ABG pO2 (83-108) mmHg ABG HCO3 (21-25) mmol/L ABG Total CO2 (19-24) mmol/L ABG O2 Saturation (94-97) % Hemoglobin (13.0-17.5) gm/dL Chloride (98-107) mmol/L Glucose (74-99) mg/dL POC Glucose (mg/dL) 116 H (70-110) mg/dL Calcium (8.4-10.2) mg/dL Lactate Dehydrogenase 529 H (120-246) U/L Total Protein (6.3-8.2) g/dL Albumin (3.5-5.0) g/dL Triglycerides (0.00-149.00) mg/dL HDL Cholesterol (40.00-60.00) mg/dL Urine Protein (Negative) Urine Blood (Negative) Ur Leukocyte Esterase (Negative) Urine RBC (0-5) /hpf Urine WBC (0-5) /hpf Urine Mucus (None) /hpf 07/16/24 07/16/24 07/16/24 Range/Units 04:20 04:20 04:20 RBC 4.20 L (4.30-5.90) m/uL Hgb 8.9 L (13.0-17.5) gm/dL Hct 28.7 L (39.0-53.0) % MCV 68.4 L (80.0-100.0) fL MCH 21.1 L (25.0-35.0) pg MCHC 30.9 L (31.0-37.0) g/dL RDW 17.5 H (11.5-15.5) % Plt Count 80 L (150-450) k/uL APTT 43.7 H (22.0-30.0) sec Fibrinogen 596 H (200-500) mg/dL ABG pH (7.35-7.45) ABG pCO2 (35-45) mmHg ABG pO2 (83-108) mmHg ABG HCO3 (21-25) mmol/L ABG Total CO2 (19-24) mmol/L ABG O2 Saturation (94-97) % Hemoglobin (13.0-17.5) gm/dL Chloride 108 H (98-107) mmol/L Glucose 106 H (74-99) mg/dL POC Glucose (mg/dL) (70-110) mg/dL Calcium 7.9 L (8.4-10.2) mg/dL Lactate Dehydrogenase 511 H (120-246) U/L Total Protein 5.5 L (6.3-8.2) g/dL Albumin 2.6 L (3.5-5.0) g/dL Triglycerides (0.00-149.00) mg/dL HDL Cholesterol (40.00-60.00) mg/dL Urine Protein (Negative) Urine Blood (Negative) Ur Leukocyte Esterase (Negative) Urine RBC (0-5) /hpf Urine WBC (0-5) /hpf Urine Mucus (None) /hpf 07/16/24 07/16/24 07/16/24 Range/Units 04:23 05:34 10:05 RBC (4.30-5.90) m/uL Hgb (13.0-17.5) gm/dL Hct (39.0-53.0) % MCV (80.0-100.0) fL MCH (25.0-35.0) pg MCHC (31.0-37.0) g/dL RDW (11.5-15.5) % Plt Count (150-450) k/uL APTT (22.0-30.0) sec Fibrinogen (200-500) mg/dL ABG pH 7.34 L (7.35-7.45) ABG pCO2 49 H (35-45) mmHg ABG pO2 (83-108) mmHg ABG HCO3 27 H (21-25) mmol/L ABG Total CO2 28 H (19-24) mmol/L ABG O2 Saturation (94-97) % Hemoglobin 9.0 L (13.0-17.5) gm/dL Chloride (98-107) mmol/L Glucose (74-99) mg/dL POC Glucose (mg/dL) 118 H (70-110) mg/dL Calcium (8.4-10.2) mg/dL Lactate Dehydrogenase (120-246) U/L Total Protein (6.3-8.2) g/dL Albumin (3.5-5.0) g/dL Triglycerides (0.00-149.00) mg/dL HDL Cholesterol (40.00-60.00) mg/dL Urine Protein 1+ H (Negative) Urine Blood Large H (Negative) Ur Leukocyte Esterase Trace H (Negative) Urine RBC >182 H (0-5) /hpf Urine WBC 9 H (0-5) /hpf Urine Mucus Rare H (None) /hpf 07/16/24 07/16/24 07/16/24 Range/Units 10:30 11:55 13:05 RBC (4.30-5.90) m/uL Hgb (13.0-17.5) gm/dL Hct (39.0-53.0) % MCV (80.0-100.0) fL MCH (25.0-35.0) pg MCHC (31.0-37.0) g/dL RDW (11.5-15.5) % Plt Count (150-450) k/uL APTT 65.0 H (22.0-30.0) sec Fibrinogen 610 H (200-500) mg/dL ABG pH (7.35-7.45) ABG pCO2 (35-45) mmHg ABG pO2 (83-108) mmHg ABG HCO3 (21-25) mmol/L ABG Total CO2 (19-24) mmol/L ABG O2 Saturation (94-97) % Hemoglobin (13.0-17.5) gm/dL Chloride (98-107) mmol/L Glucose (74-99) mg/dL POC Glucose (mg/dL) 113 H (70-110) mg/dL Calcium (8.4-10.2) mg/dL Lactate Dehydrogenase (120-246) U/L Total Protein (6.3-8.2) g/dL Albumin (3.5-5.0) g/dL Triglycerides (0.00-149.00) mg/dL HDL Cholesterol (40.00-60.00) mg/dL Urine Protein (Negative) Urine Blood (Negative) Ur Leukocyte Esterase (Negative) Urine RBC (0-5) /hpf Urine WBC (0-5) /hpf Urine Mucus (None) /hpf Microbiology - Last 24 Hours (Table) 07/11/24 04:47 Blood Culture - Final Blood Assessment and Plan Plan: Outside the hospital cardiac arrest requiring 5 minutes of CPR prior to return of spontaneous circulation, rule out underlying anoxic encephalopathy. Encephalopathy, rule out anoxic encephalopathy the patient remains on propofol. Sedation holiday failed yesterday and there is probably some right-sided weakness noted on examination. CAT scan of the brain showed left parietal hypoattenuation, suspect a stroke evaluation. Another sedation holiday will be done today. Acute non-ST segment elevation myocardial infarction, status post cardiac catheterization indicating triple-vessel coronary artery disease Severe ischemic cardiomyopathy with an ejection fraction of 25 to 30% and segmental wall motion abnormalities. Limited echocardiogram shows impaired LV function and estimated ejection fraction is at 40% Cardiogenic shock secondary to above and the patient has an Impella for mechanical support, P4 augmentation, no pressors for now Acute hypoxemic respiratory failure secondary to above requiring intubation and mechanical ventilatory support. Chest x-ray is consistent with CHF and bilateral pleural effusions. Severe metabolic acidosis at time of admission, improvement in acid-base status Acute kidney injury, recovered and the patient is producing adequate amount of urine output Recent discharge in May 2024 for atypical chest pain and COVID-19 infection/pneumonitis Rheumatoid arthritis Hypertension Benign prostatic hyperplasia Thrombocytopenia, still on IV heparin, platelet count is down to 80,000. Having intermittent hematuria, currently inactive. Anemia, multifactorial, acute, and hemoglobin stable for now. This could be potentially raised to Impella induced hemolysis. Plan: Continue mechanical ventilation with a pressure control of 20, expiratory time of 0.8, PEEP of 5, FiO2 of 40% no change in the mechanical ventilator for today. Give the patient sedation holiday and assess mental status change. Obtain a follow-up CAT scan of the brain Neurology consultation Cardiac catheterization today for further coronary intervention Keep the Impella for hemodynamic support pressure urine output and cardiac output. Continue aspirin Continue IV heparin Monitor platelet count Patient is currently off pressors Continue tube feedings for nutritional support currently vital AF 1.2 We will continue to follow and make further recommendations based on his clinical status Condition remains critical. Prognosis poor based on above-mentioned comorbidities. Will continue to follow along with the rest of the consultants. His evaluation was done more than 30 minutes. Time with Patient: Greater than 30
--- NOTE | 2024-07-16 14:16 | P.PN ---
Subjective Progress Note Date: 07/16/24 [facility] The patient is a 78-year-old gentleman with a past medical history significant for hypertension and rheumatoid arthritis and recently diagnosed of COVID-19 infection all this information was obtained from the chart. Currently the patient is intubated and he is on mechanical ventilation and history was taken from the chart as well as from the nurse taking care of the patient. The patient was in his usual state of health till earlier today when he was doing some work in his backyard and he was experiencing symptoms of chest discomfort and shortness of breath. Subsequent ambulance was called and upon arrival the patient collapsed and he was pulseless. CPR initiated for 5 minutes and brought to normal sinus mechanism. Subsequently patient was intubated and placed on mechanical ventilation. He was hypotensive and he continues to be hypotensive requiring norepinephrine. He was seen in intensive care unit. Currently he is still hemodynamically unstable and requiring norepinephrine. He is in sinus mechanism. I did review the EKG and that showed sinus mechanism with deep T wave inversion in the anterolateral leads concerning for severe underlying coronary artery disease versus stress-induced cardiomyopathy. At the same time the patient was admitted to the hospital last month with a chest discomfort in the setting of COVID with abnormal cardiac enzymes and he was treated medically at that point. Please note that the patient was experiencing chest discomfort and shortness of breath earlier today. No history of coronary artery disease or congestive heart failure or cardiac arrhythmia. The first set of troponin came in to be abnormal. The physical examination is remarkable for patient intubated on mechanical ventilation hemodynamically unstable with regular rate and rhythm and systolic murmur at the apical area and diminished breathing sounds bilaterally. July 12, 2024 The patient was seen and evaluated this morning. He continues to be intubated on mechanical ventilation and continues to be also on vasopressors. He is maintaining normal sinus mechanism. The plan is to pursue with a heart catheterization. The physical examination is remarkable for regular rhythm with a distant heart sounds and diminished breathing sounds bilaterally and no edema was noted in the lower extremities. July 13, 2024 Patient is seen and examined at bedside this a.m. He continues to be on ventilator support and Impella support. CVP 10 mmHg, MAP 65 mmHg, SBP 110, DBP 50 mmHg. P7 on Impella, off pressors Good urine output Hemoglobin 10.8, platelets 123, mild hemolysis noticed, LDH is elevated, fibrinogen is elevated but in range. July 14, 2024 Patient is seen and examined at bedside this a.m. He continues to be on ventilator support and Impella support. CVP 8 to 10 mmHg, MAP of 65 mmHg, SBP around 100 mmHg, DBP around 50 mmHg Last 9 was on high level. This morning he was on P7 Impella. Off pressors since yesterday afternoon. Continues to have good urine output Hemoglobin 9.9, platelets 106, fibrogenic 507, BUN 17, creatinine 0.8 We tried weaning to P4 levels. At P4 the [place] cardiac index was around 3.2. MAINTENANCE ADVISOR still less than 0.6. Patient was given sedation vacation and but neurological evaluation was not appropriate as sedation medication was not long enough. July 15, 2024 During sedation vacation and neurological evaluation patient was able to do some purposeful movement however the motor strength in right upper extremity was lower as compared to her extremities. Due to the focal nature we performed a CT head which showed some concerns of possible left parietal lobe subacute CVA. Case was discussed with neurology who recommended to continue anticoagulation for now and consideration of higher benefit over risk. At P4, SBP around 120s, DBP around 40s, MAP around 65, Cardiac index 3.1 L/min/m. July 16, 2024 Patient is seen and examined at bedside this a.m. Last night patient had brief hematuria. For this we stopped heparin temporarily and patient's urine cleared up. Patient is back on IV heparin drip with no further hematuria. Patient is maintaining good blood pressure at P4 Impella support. Adequate peripheral perfusion with good urine output. On exam Intubated and sedated, on ventilator support, ET tube in place, appropriate air entry in bilateral lung pineda S1-S2 audible, Impella device in place with murmur from Impella device a ppreciated. 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 Multiple comorbid conditions Plan Plan for cardiac cath and PCI to LAD with Impella removal thereafter today. Hemoglobin 8.9, platelets 80,000. Continue aspirin and statin Case was discussed with the nursing staff ICU attending and the neurologist. Case was discussed with the inventory management specialist. Update was given to the patient's point of contact and verbal consent was obtained for the PCI explaining the increased risk of CVA and other complications. Prognosis guarded Objective - Vital Signs Vital signs: Vital Signs Temp 98.1 F 07/16/24 12:00 Pulse 56 L 07/16/24 13:30 Resp 18 07/16/24 13:30 BP 104/51 07/14/24 08:15 Pulse Ox 99 07/16/24 13:30 FiO2 40 07/16/24 12:00 Intake & Output 07/15/24 07/16/24 07/16/24 18:59 06:59 18:59 Intake Total 1338.931 968.326 305.587 Output Total 2580 415 235 Balance -1241.069 553.326 70.587 Weight 106.8 kg 110 kg 110 kg Intake: IV 315 319.2 148.4 0.9 KVO @ 20 240 80 Sodium Bicarb (1 Meq/ml) 167.2 106.4 12.5 ml In Dextrose 5% in Water 500 ml @ Per Protocol IV DIRECTED [facility]OLIL Rx#:[id number] a line x 2 75 72 42 Intake, IV Titration 423.931 444.126 97.187 Amount Heparin Sod,Pork in 0.45% 172.734 107.747 NaCl 25,000 unit In 0.45 % NaCl 1 250ml.bag @ 11. 023 UNITS/KG/HR 10 mls/hr IV .Q24H [facility] Rx#: [id number] Nitroglycerin-D5w Pmx 50 3.925 26.425 mg In Dextrose/Water 1 250ml.bag @ 5 MCG/MIN 1.5 mls/hr IV .Q24H [facility] Rx#: [id number] Norepinephrine 8 mg In 28.142 Sodium Chloride 0.9% 250 ml @ 0.19 MCG/KG/MIN 33. 353 mls/hr IV .Q7H45M [facility] Rx#:[id number] fentaNYL (PF). 1,000 mcg 16.557 96.975 0 In Sodium Chloride 0.9% 80 ml @ 0.5 MCG/KG/HR 4. 536 mls/hr IV .Q22H3M [facility] Rx#:[id number] propofoL 1,000 mg In 202.573 239.404 70.762 Empty Bag 1 bag @ 15 MCG/ KG/MIN 8.165 mls/hr IV . [id number] [facility] Rx#:[id number] Oral 60 Tube Feeding 420 175 Other 120 30 60 Output: Urine 2580 415 235 Other: Voiding Method Indwelling Catheter Indwelling Catheter Indwelling Catheter ABP, PAP, CO, CI - Last Documented Arterial Blood Pressure 158/54 - Labs CBC & Chem 7: 07/16/24 04:20 07/16/24 04:20 Labs: Abnormal Lab Results - Last 24 Hours (Table) 07/15/24 07/15/24 07/15/24 Range/Units 14:47 14:53 15:48 RBC (4.30-5.90) m/uL Hgb (13.0-17.5) gm/dL Hct (39.0-53.0) % MCV (80.0-100.0) fL MCH (25.0-35.0) pg MCHC (31.0-37.0) g/dL RDW (11.5-15.5) % Plt Count (150-450) k/uL APTT (22.0-30.0) sec Fibrinogen 617 H (200-500) mg/dL ABG pH (7.35-7.45) ABG pCO2 49 H (35-45) mmHg ABG pO2 39 L* (83-108) mmHg ABG HCO3 27 H (21-25) mmol/L ABG Total CO2 27 H 28 H (19-24) mmol/L ABG O2 Saturation 97.4 H 69.3 L (94-97) % Hemoglobin 9.3 L 9.2 L (13.0-17.5) gm/dL Chloride (98-107) mmol/L Glucose (74-99) mg/dL POC Glucose (mg/dL) (70-110) mg/dL Calcium (8.4-10.2) mg/dL Lactate Dehydrogenase (120-246) U/L Total Protein (6.3-8.2) g/dL Albumin (3.5-5.0) g/dL Triglycerides (0.00-149.00) mg/dL HDL Cholesterol (40.00-60.00) mg/dL Urine Protein (Negative) Urine Blood (Negative) Ur Leukocyte Esterase (Negative) Urine RBC (0-5) /hpf Urine WBC (0-5) /hpf Urine Mucus (None) /hpf 07/15/24 07/15/24 07/15/24 Range/Units 15:48 15:48 17:25 RBC (4.30-5.90) m/uL Hgb (13.0-17.5) gm/dL Hct (39.0-53.0) % MCV (80.0-100.0) fL MCH (25.0-35.0) pg MCHC (31.0-37.0) g/dL RDW (11.5-15.5) % Plt Count (150-450) k/uL APTT (22.0-30.0) sec Fibrinogen (200-500) mg/dL ABG pH (7.35-7.45) ABG pCO2 (35-45) mmHg ABG pO2 (83-108) mmHg ABG HCO3 (21-25) mmol/L ABG Total CO2 (19-24) mmol/L ABG O2 Saturation (94-97) % Hemoglobin (13.0-17.5) gm/dL Chloride (98-107) mmol/L Glucose (74-99) mg/dL POC Glucose (mg/dL) 131 H (70-110) mg/dL Calcium (8.4-10.2) mg/dL Lactate Dehydrogenase 612 H (120-246) U/L Total Protein (6.3-8.2) g/dL Albumin (3.5-5.0) g/dL Triglycerides 150.00 H (0.00-149.00) mg/dL HDL Cholesterol 36.90 L (40.00-60.00) mg/dL Urine Protein (Negative) Urine Blood (Negative) Ur Leukocyte Esterase (Negative) Urine RBC (0-5) /hpf Urine WBC (0-5) /hpf Urine Mucus (None) /hpf 07/15/24 07/15/24 07/16/24 Range/Units 20:45 20:45 00:41 RBC (4.30-5.90) m/uL Hgb (13.0-17.5) gm/dL Hct (39.0-53.0) % MCV (80.0-100.0) fL MCH (25.0-35.0) pg MCHC (31.0-37.0) g/dL RDW (11.5-15.5) % Plt Count (150-450) k/uL APTT (22.0-30.0) sec Fibrinogen 616 H (200-500) mg/dL ABG pH (7.35-7.45) ABG pCO2 (35-45) mmHg ABG pO2 (83-108) mmHg ABG HCO3 (21-25) mmol/L ABG Total CO2 (19-24) mmol/L ABG O2 Saturation (94-97) % Hemoglobin (13.0-17.5) gm/dL Chloride (98-107) mmol/L Glucose (74-99) mg/dL POC Glucose (mg/dL) 116 H (70-110) mg/dL Calcium (8.4-10.2) mg/dL Lactate Dehydrogenase 529 H (120-246) U/L Total Protein (6.3-8.2) g/dL Albumin (3.5-5.0) g/dL Triglycerides (0.00-149.00) mg/dL HDL Cholesterol (40.00-60.00) mg/dL Urine Protein (Negative) Urine Blood (Negative) Ur Leukocyte Esterase (Negative) Urine RBC (0-5) /hpf Urine WBC (0-5) /hpf Urine Mucus (None) /hpf 07/16/24 07/16/24 07/16/24 Range/Units 04:20 04:20 04:20 RBC 4.20 L (4.30-5.90) m/uL Hgb 8.9 L (13.0-17.5) gm/dL Hct 28.7 L (39.0-53.0) % MCV 68.4 L (80.0-100.0) fL MCH 21.1 L (25.0-35.0) pg MCHC 30.9 L (31.0-37.0) g/dL RDW 17.5 H (11.5-15.5) % Plt Count 80 L (150-450) k/uL APTT 43.7 H (22.0-30.0) sec Fibrinogen 596 H (200-500) mg/dL ABG pH (7.35-7.45) ABG pCO2 (35-45) mmHg ABG pO2 (83-108) mmHg ABG HCO3 (21-25) mmol/L ABG Total CO2 (19-24) mmol/L ABG O2 Saturation (94-97) % Hemoglobin (13.0-17.5) gm/dL Chloride 108 H (98-107) mmol/L Glucose 106 H (74-99) mg/dL POC Glucose (mg/dL) (70-110) mg/dL Calcium 7.9 L (8.4-10.2) mg/dL Lactate Dehydrogenase 511 H (120-246) U/L Total Protein 5.5 L (6.3-8.2) g/dL Albumin 2.6 L (3.5-5.0) g/dL Triglycerides (0.00-149.00) mg/dL HDL Cholesterol (40.00-60.00) mg/dL Urine Protein (Negative) Urine Blood (Negative) Ur Leukocyte Esterase (Negative) Urine RBC (0-5) /hpf Urine WBC (0-5) /hpf Urine Mucus (None) /hpf 07/16/24 07/16/24 07/16/24 Range/Units 04:23 05:34 10:05 RBC (4.30-5.90) m/uL Hgb (13.0-17.5) gm/dL Hct (39.0-53.0) % MCV (80.0-100.0) fL MCH (25.0-35.0) pg MCHC (31.0-37.0) g/dL RDW (11.5-15.5) % Plt Count (150-450) k/uL APTT (22.0-30.0) sec Fibrinogen (200-500) mg/dL ABG pH 7.34 L (7.35-7.45) ABG pCO2 49 H (35-45) mmHg ABG pO2 (83-108) mmHg ABG HCO3 27 H (21-25) mmol/L ABG Total CO2 28 H (19-24) mmol/L ABG O2 Saturation (94-97) % Hemoglobin 9.0 L (13.0-17.5) gm/dL Chloride (98-107) mmol/L Glucose (74-99) mg/dL POC Glucose (mg/dL) 118 H (70-110) mg/dL Calcium (8.4-10.2) mg/dL Lactate Dehydrogenase (120-246) U/L Total Protein (6.3-8.2) g/dL Albumin (3.5-5.0) g/dL Triglycerides (0.00-149.00) mg/dL HDL Cholesterol (40.00-60.00) mg/dL Urine Protein 1+ H (Negative) Urine Blood Large H (Negative) Ur Leukocyte Esterase Trace H (Negative) Urine RBC >182 H (0-5) /hpf Urine WBC 9 H (0-5) /hpf Urine Mucus Rare H (None) /hpf 07/16/24 07/16/24 07/16/24 Range/Units 10:30 11:55 13:05 RBC (4.30-5.90) m/uL Hgb (13.0-17.5) gm/dL Hct (39.0-53.0) % MCV (80.0-100.0) fL MCH (25.0-35.0) pg MCHC (31.0-37.0) g/dL RDW (11.5-15.5) % Plt Count (150-450) k/uL APTT 65.0 H (22.0-30.0) sec Fibrinogen 610 H (200-500) mg/dL ABG pH (7.35-7.45) ABG pCO2 (35-45) mmHg ABG pO2 (83-108) mmHg ABG HCO3 (21-25) mmol/L ABG Total CO2 (19-24) mmol/L ABG O2 Saturation (94-97) % Hemoglobin (13.0-17.5) gm/dL Chloride (98-107) mmol/L Glucose (74-99) mg/dL POC Glucose (mg/dL) 113 H (70-110) mg/dL Calcium (8.4-10.2) mg/dL Lactate Dehydrogenase (120-246) U/L Total Protein (6.3-8.2) g/dL Albumin (3.5-5.0) g/dL Triglycerides (0.00-149.00) mg/dL HDL Cholesterol (40.00-60.00) mg/dL Urine Protein (Negative) Urine Blood (Negative) Ur Leukocyte Esterase (Negative) Urine RBC (0-5) /hpf Urine WBC (0-5) /hpf Urine Mucus (None) /hpf Microbiology - Last 24 Hours (Table) 07/11/24 04:47 Blood Culture - Final Blood
--- NOTE | 2024-07-16 14:44 | P.PN ---
Subjective Progress Note Date: 07/16/24 I am following-up with patient and per nurse no new neurological issues. He continues to have weakness on right side. He is on IV Propofol and Fentanyl. Objective - Vital Signs Vital signs: Vital Signs Temp 98.1 F 07/16/24 12:00 Pulse 56 L 07/16/24 13:30 Resp 18 07/16/24 13:30 BP 104/51 07/14/24 08:15 Pulse Ox 99 07/16/24 13:30 FiO2 40 07/16/24 12:00 Intake & Output 07/15/24 07/16/24 07/16/24 18:59 06:59 18:59 Intake Total 1338.931 968.326 305.587 Output Total 2580 415 235 Balance -1241.069 553.326 70.587 Weight 106.8 kg 110 kg 110 kg Intake: IV 315 319.2 148.4 0.9 KVO @ 20 240 80 Sodium Bicarb (1 Meq/ml) 167.2 106.4 12.5 ml In Dextrose 5% in Water 500 ml @ Per Protocol IV DIRECTED [facility] Rx#:[id number] a line x 2 75 72 42 Intake, IV Titration 423.931 444.126 97.187 Amount Heparin Sod,Pork in 0.45% 172.734 107.747 NaCl 25,000 unit In 0.45 % NaCl 1 250ml.bag @ 11. 023 UNITS/KG/HR 10 mls/hr IV .Q24H [facility] Rx#: [id number] Nitroglycerin-D5w Pmx 50 3.925 26.425 mg In Dextrose/Water 1 250ml.bag @ 5 MCG/MIN 1.5 mls/hr IV .Q24H [facility] Rx#: [id number] Norepinephrine 8 mg In 28.142 Sodium Chloride 0.9% 250 ml @ 0.19 MCG/KG/MIN 33. 353 mls/hr IV .Q7H45M [facility] Rx#:[id number] fentaNYL (PF). 1,000 mcg 16.557 96.975 0 In Sodium Chloride 0.9% 80 ml @ 0.5 MCG/KG/HR 4. 536 mls/hr IV .Q22H3M [facility] Rx#:[id number] propofoL 1,000 mg In 202.573 239.404 70.762 Empty Bag 1 bag @ 15 MCG/ KG/MIN 8.165 mls/hr IV . [id number] [facility] Rx#:[id number] Oral 60 Tube Feeding 420 175 Other 120 30 60 Output: Urine 2580 415 235 Other: Voiding Method Indwelling Catheter Indwelling Catheter Indwelling Catheter ABP, PAP, CO, CI - Last Documented Arterial Blood Pressure 158/54 - Exam General: Lying in bed and does not appear in acute distress. Lung: Intubated on a ventilator Neuro: Very limited. Is on IV Propofol and Fentanyl. He is severely drowsy but is aweakble to voice. Some of the work-up during this hospital visit consisted of: Ammonia is 18 Vitamin B12: 414 Folate: 12.5 TSH: 7.630, free T4 0.80 Lipid panel: TG 150, Cholestrol 130, LDL [address] of the head is reported as no acute finding. I reviewed the CT and there is a lot of artifact it is hard to appreciate any acute or subacute ischemia. I felt there is hypoattenuation on the left frontal parietal region but again it is hard to assess. Carotid duplex is reported as arthritis plaque in present with may have mild to moderate internal carotid artery narrowing on the left just above 50. Unable to visualize right vertebral artery. 2D echo was reported as severe cardiomyopathy with wall motion abnormality including apical hypokinesis. Ejection fraction of 25 to 30%. Repeat CT head on 07/15/2024: reported as no acute intracranial bleed. Focal region of low-attenuation within the left parietal lobe which may represent an a ge indeterminate infarct. Consider further evaluation with MRI. I personally reviewed the CT and felt the patient has subacute infarct in the left parietal region. - Labs CBC & Chem 7: 07/16/24 04:20 07/16/24 04:20 Labs: Abnormal Lab Results - Last 24 Hours (Table) 07/15/24 07/15/24 07/15/24 Range/Units 14:47 14:53 15:48 RBC (4.30-5.90) m/uL Hgb (13.0-17.5) gm/dL Hct (39.0-53.0) % MCV (80.0-100.0) fL MCH (25.0-35.0) pg MCHC (31.0-37.0) g/dL RDW (11.5-15.5) % Plt Count (150-450) k/uL APTT (22.0-30.0) sec Fibrinogen 617 H (200-500) mg/dL ABG pH (7.35-7.45) ABG pCO2 49 H (35-45) mmHg ABG pO2 39 L* (83-108) mmHg ABG HCO3 27 H (21-25) mmol/L ABG Total CO2 27 H 28 H (19-24) mmol/L ABG O2 Saturation 97.4 H 69.3 L (94-97) % Hemoglobin 9.3 L 9.2 L (13.0-17.5) gm/dL Chloride (98-107) mmol/L Glucose (74-99) mg/dL POC Glucose (mg/dL) (70-110) mg/dL Calcium (8.4-10.2) mg/dL Lactate Dehydrogenase (120-246) U/L Total Protein (6.3-8.2) g/dL Albumin (3.5-5.0) g/dL Triglycerides (0.00-149.00) mg/dL HDL Cholesterol (40.00-60.00) mg/dL Urine Protein (Negative) Urine Blood (Negative) Ur Leukocyte Esterase (Negative) Urine RBC (0-5) /hpf Urine WBC (0-5) /hpf Urine Mucus (None) /hpf 07/15/24 07/15/24 07/15/24 Range/Units 15:48 15:48 17:25 RBC (4.30-5.90) m/uL Hgb (13.0-17.5) gm/dL Hct (39.0-53.0) % MCV (80.0-100.0) fL MCH (25.0-35.0) pg MCHC (31.0-37.0) g/dL RDW (11.5-15.5) % Plt Count (150-450) k/uL APTT (22.0-30.0) sec Fibrinogen (200-500) mg/dL ABG pH (7.35-7.45) ABG pCO2 (35-45) mmHg ABG pO2 (83-108) mmHg ABG HCO3 (21-25) mmol/L ABG Total CO2 (19-24) mmol/L ABG O2 Saturation (94-97) % Hemoglobin (13.0-17.5) gm/dL Chloride (98-107) mmol/L Glucose (74-99) mg/dL POC Glucose (mg/dL) 131 H (70-110) mg/dL Calcium (8.4-10.2) mg/dL Lactate Dehydrogenase 612 H (120-246) U/L Total Protein (6.3-8.2) g/dL Albumin (3.5-5.0) g/dL Triglycerides 150.00 H (0.00-149.00) mg/dL HDL Cholesterol 36.90 L (40.00-60.00) mg/dL Urine Protein (Negative) Urine Blood (Negative) Ur Leukocyte Esterase (Negative) Urine RBC (0-5) /hpf Urine WBC (0-5) /hpf Urine Mucus (None) /hpf 07/15/24 07/15/24 07/16/24 Range/Units 20:45 20:45 00:41 RBC (4.30-5.90) m/uL Hgb (13.0-17.5) gm/dL Hct (39.0-53.0) % MCV (80.0-100.0) fL MCH (25.0-35.0) pg MCHC (31.0-37.0) g/dL RDW (11.5-15.5) % Plt Count (150-450) k/uL APTT (22.0-30.0) sec Fibrinogen 616 H (200-500) mg/dL ABG pH (7.35-7.45) ABG pCO2 (35-45) mmHg ABG pO2 (83-108) mmHg ABG HCO3 (21-25) mmol/L ABG Total CO2 (19-24) mmol/L ABG O2 Saturation (94-97) % Hemoglobin (13.0-17.5) gm/dL Chloride (98-107) mmol/L Glucose (74-99) mg/dL POC Glucose (mg/dL) 116 H (70-110) mg/dL Calcium (8.4-10.2) mg/dL Lactate Dehydrogenase 529 H (120-246) U/L Total Protein (6.3-8.2) g/dL Albumin (3.5-5.0) g/dL Triglycerides (0.00-149.00) mg/dL HDL Cholesterol (40.00-60.00) mg/dL Urine Protein (Negative) Urine Blood (Negative) Ur Leukocyte Esterase (Negative) Urine RBC (0-5) /hpf Urine WBC (0-5) /hpf Urine Mucus (None) /hpf 07/16/24 07/16/24 07/16/24 Range/Units 04:20 04:20 04:20 RBC 4.20 L (4.30-5.90) m/uL Hgb 8.9 L (13.0-17.5) gm/dL Hct 28.7 L (39.0-53.0) % MCV 68.4 L (80.0-100.0) fL MCH 21.1 L (25.0-35.0) pg MCHC 30.9 L (31.0-37.0) g/dL RDW 17.5 H (11.5-15.5) % Plt Count 80 L (150-450) k/uL APTT 43.7 H (22.0-30.0) sec Fibrinogen 596 H (200-500) mg/dL ABG pH (7.35-7.45) ABG pCO2 (35-45) mmHg ABG pO2 (83-108) mmHg ABG HCO3 (21-25) mmol/L ABG Total CO2 (19-24) mmol/L ABG O2 Saturation (94-97) % Hemoglobin (13.0-17.5) gm/dL Chloride 108 H (98-107) mmol/L Glucose 106 H (74-99) mg/dL POC Glucose (mg/dL) (70-110) mg/dL Calcium 7.9 L (8.4-10.2) mg/dL Lactate Dehydrogenase 511 H (120-246) U/L Total Protein 5.5 L (6.3-8.2) g/dL Albumin 2.6 L (3.5-5.0) g/dL Triglycerides (0.00-149.00) mg/dL HDL Cholesterol (40.00-60.00) mg/dL Urine Protein (Negative) Urine Blood (Negative) Ur Leukocyte Esterase (Negative) Urine RBC (0-5) /hpf Urine WBC (0-5) /hpf Urine Mucus (None) /hpf 07/16/24 07/16/24 07/16/24 Range/Units 04:23 05:34 10:05 RBC (4.30-5.90) m/uL Hgb (13.0-17.5) gm/dL Hct (39.0-53.0) % MCV (80.0-100.0) fL MCH (25.0-35.0) pg MCHC (31.0-37.0) g/dL RDW (11.5-15.5) % Plt Count (150-450) k/uL APTT (22.0-30.0) sec Fibrinogen (200-500) mg/dL ABG pH 7.34 L (7.35-7.45) ABG pCO2 49 H (35-45) mmHg ABG pO2 (83-108) mmHg ABG HCO3 27 H (21-25) mmol/L ABG Total CO2 28 H (19-24) mmol/L ABG O2 Saturation (94-97) % Hemoglobin 9.0 L (13.0-17.5) gm/dL Chloride (98-107) mmol/L Glucose (74-99) mg/dL POC Glucose (mg/dL) 118 H (70-110) mg/dL Calcium (8.4-10.2) mg/dL Lactate Dehydrogenase (120-246) U/L Total Protein (6.3-8.2) g/dL Albumin (3.5-5.0) g/dL Triglycerides (0.00-149.00) mg/dL HDL Cholesterol (40.00-60.00) mg/dL Urine Protein 1+ H (Negative) Urine Blood Large H (Negative) Ur Leukocyte Esterase Trace H (Negative) Urine RBC >182 H (0-5) /hpf Urine WBC 9 H (0-5) /hpf Urine Mucus Rare H (None) /hpf 07/16/24 07/16/24 07/16/24 Range/Units 10:30 11:55 13:05 RBC (4.30-5.90) m/uL Hgb (13.0-17.5) gm/dL Hct (39.0-53.0) % MCV (80.0-100.0) fL MCH (25.0-35.0) pg MCHC (31.0-37.0) g/dL RDW (11.5-15.5) % Plt Count (150-450) k/uL APTT 65.0 H (22.0-30.0) sec Fibrinogen 610 H (200-500) mg/dL ABG pH (7.35-7.45) ABG pCO2 (35-45) mmHg ABG pO2 (83-108) mmHg ABG HCO3 (21-25) mmol/L ABG Total CO2 (19-24) mmol/L ABG O2 Saturation (94-97) % Hemoglobin (13.0-17.5) gm/dL Chloride (98-107) mmol/L Glucose (74-99) mg/dL POC Glucose (mg/dL) 113 H (70-110) mg/dL Calcium (8.4-10.2) mg/dL Lactate Dehydrogenase (120-246) U/L Total Protein (6.3-8.2) g/dL Albumin (3.5-5.0) g/dL Triglycerides (0.00-149.00) mg/dL HDL Cholesterol (40.00-60.00) mg/dL Urine Protein (Negative) Urine Blood (Negative) Ur Leukocyte Esterase (Negative) Urine RBC (0-5) /hpf Urine WBC (0-5) /hpf Urine Mucus (None) /hpf Microbiology - Last 24 Hours (Table) 07/11/24 04:47 Blood Culture - Final Blood Assessment and Plan Assessment: This is a 78-year-old gentleman having shortness of breath and presents to our facility on 07/11/2024 because out of the hospital cardiopulmonary arrest lasting for 5 minutes. Found to have severe underlying vessel coronary artery disease, ischemic cardiomyopathy with ejection fraction of 15 to 20% and had Impella placed on 07/12/2024. First his right side weakness may be began on 07/13/2024 but it was hard to assess because he was on sedation. Patient is on IV heparin for his cardiac issues. Subacute ischemic stroke over the left parietal. Has acute right hemiparesis. No IV thrombolytic since patient is on heparin drip and is outside the window and the risk outweigh the benefit. Altered Mental status multifactorial: Due to sedation, stroke----with sedation holiday he was following simple commands. Underlying history of multivessel coronary artery disease Ischemic cardiomyopathy with ejection fraction of 15 to 20% status post Impella Out of the hospital cardiopulmonary arrest lasting for 5 minutes Plan: Pending repeat CT head and will obtain CT cervical spine. Patient is on aspirin 81 mg, Lipitor 40 mg nightly. Neurochecks Cardiac monitoring PT OT are consulted NO need for EEG since this is not seizure and patient is following commands after sedation holiday. Cardiothoracic team is consulted for CABG evaluation Will defer the rest of the medical management to primary and other specialist For DVT prophylaxis the patient is on heparin drip The plan is discussed with analyst programmer and his nurse. Time with Patient: Less than 30
[2024-07-16 16:10] LABS: Glucose,Whole Blood 95 mg/dL (70-110)
[2024-07-16] MEDS: SODIUM CHLORIDE 0.9% 1,000 ML IV ONE (17:05)
[2024-07-16] MEDS: MIDAZOLAM 2 MG/2 ML VIAL IVP ONE (17:52)
[2024-07-16] MEDS: LIDOCAINE 1% INJ 10MG/ML (20 ML MDV) SQ ONE (17:55)
[2024-07-16] MEDS: HEPARIN SODIUM 1,000 UN/ML (10ML VL) IVP ONE (18:00)
[2024-07-16] MEDS: TICAGRELOR 90 MG TAB PO ONE (18:05)
[2024-07-16] MEDS: HEPARIN SODIUM,PORCINE (1 ML) 2,500 UNIT in SODIUM CHLORIDE 0.9% 250 ML IRRIGATION ONE (18:26)
[2024-07-16] MEDS: HEPARIN SODIUM,PORCINE 10,000 UNIT in SODIUM CHLORIDE 0.9% 1,000 ML IRRIGATION ONE (18:26)
[2024-07-16] MEDS: IOPAMIDOL-370 100ML BTL INJ ONE ×2 (18:33→19:22)
[2024-07-16] MEDS ORDERED: MAG HYDROX/AL HYDROX/SIMETH 30 ML CUP PO PRN (19:22)
[2024-07-16] MEDS ORDERED: RX INFO: IV CONTRAST WAS GIVEN 1 EACH MISC MISCELLANE PRN (19:22)
[2024-07-16] MEDS ORDERED: ZOLPIDEM 5 MG TAB PO PRN (19:22)
[2024-07-16] MEDS ORDERED: ATROPINE SULFATE 0.1 MG/ML 10ML SYRINGE IV PRN (19:22)
[2024-07-16 19:29] LABS: Glucose,Whole Blood 106 mg/dL (70-110)
[2024-07-16] MEDS: SODIUM CHLORIDE 0.9% 1,000 ML in EMPTY BAG 1 BAG IV SCH (19:59)
--- NOTE | 2024-07-16 20:22 | P.PCN ---
Date of Procedure: 07/16/24 Operative Findings: PERCUTANEOUS CORONARY INTERVENTION Performing physician Jack Abrams M.D. Procedure Performed: 1. Successful stenting of the proximal LAD using 3.0 x 48 mm Xience drug-eluting stent with an excellent angiographic results. 2. Successful stending of the mid LAD using 2.25 x 23 mm Xience drug-eluting stent with an excellent angiographic result. 3. Adjunctive use of IVUS and lithotripsy balloon and Impella CP 4. Successful hemostasis of the right common femoral artery using two Perclose devices 5. Selective bilateral common femoral arteries angiogram and ultrasound-guided access of the left common femoral artery Indication: Acute non-ST elevation myocardial infarction complicated by cardiogenic shock and the patient underwent a heart catheterization revealed severe triple-vessel CAD Approach: Left common femoral artery Complications: None Level of Sedation: Moderate with a sedation length of 78 minutes Procedure Discussion: After obtaining an informed consent the patient was brought to the cardiac Ruling Machine Feeder on the ventilator as well as the Impella CP in place. The left common femoral artery was cannulated using micropuncture technique under ultrasound guidance the micropuncture wire passed easily then I placed a 6 Fijian 11 cm sheath at the left common femoral artery. At that point anticoagulation was initiated using heparin with continuous ACT monitoring. Subsequently I did engage the left main coronary artery using an EBU 3.75 guiding catheter with go od engagement and coaxial at the with the left main coronary artery. After that I did attempt wiring the LAD using a whisper wire but the wire would not cross the mid LAD because of extreme tortuosity and extreme calcifications. I left the first whisper wire and replaced in the mid LAD and subsequently I did advance another whisper wire with a backup support of Corsair catheter. With the support of the coarse aorta I was able to wire the LAD and advanced the wire distally. Subsequently the Corsair catheter was withdrawn out and a josue wire was withdrawn out as well. Please note that the anticoagulation was initiated and continued using heparin with continuous ACT monitoring. Because attempting advancing IVUS catheter was unsuccessful to the mid LAD but was successful only to the proximal LAD and IVUS showed extremely calcified LAD with a diameter around 4 mm proximally I decided to start balloon angioplasty using 2.5 mm noncompliant balloon to create a channel to advance the lithotripsy balloon. So I did balloon angioplasty of the LAD in the mid and proximal portion using 2.5 x 15 mm NC balloon were added multiple PTCA following with the balloon inflated multiple times under 12 jeremías for 20 seconds. After that I was able to advance a 3.0 x 12 mm lithotripsy balloon and again I did balloon angioplasty of the LAD in the mid and proximal portion. Subsequently I advanced a 3.0 x 48 mm stent but the stent was positioned under fluoroscopy guidance and deployed under fluoroscopy guidance with multiple injection to assure that the stent was at the exact location. The stent was deployed under 12 jeremías for 20 seconds. Subsequently an angiogram was performed and showed what it seems to be either thrombus involving the mid LAD distal to the stented segment or possible disse ction. The lesion was definitely concerning and because of that I decided to cover the lesion using a stent. Attempting advancing 2.25 x 23 mm was unsuccessful but was successful with the support of GuideLiner. With that I was able to advance the stent to the mid LAD where the stent again was positioned under fluoroscopy guidance and deployed under 12 jeremías for 20 seconds. The angiogram showed good angiographic results. I ended the procedure by doing postdilatation of the stent in the very proximal LAD using 4 mm NC balloon which was inflated under 16 jeremías for 20 seconds with final angiogram showing excellent angiographic results and the patient tolerated the procedure very well After that I decided to pull the Impella CP from the LV across the aortic valve after the Impella was turned down. After that the Impella was pulled across the aortic valve subsequently all the way across the she is outside the body. I did do crossover from the left common femoral artery to the right iliac artery using an 035 stiff Glidewire with a backup support of Fijian catheter and the wire was advanced all the way to the right SFA. Subsequently over the wire after the rim catheter was withdrawn out I was able to advance a 7.0 x 60 mm balloon as a backup in case we could not achieve good hemostasis after pulling the Impella sheath. The 14 Fijian 11 cm Impella sheath was withdrawn out with a good hemostasis was using the Perclose devices were replaced before and with a good angiogram through the bone to prove that there was no extravasation of contrast and good hemostasis was performed and the patient did have a great right common femoral pulse. Finally I did selective left common femoral artery angiogram before I deployed a 6 Fijian Angio-Seal at the left common femoral artery with g ood hemostasis as well. The procedure was completed with no complication Postprocedure Management: Dual antiplatelet therapy using aspirin and Brilinta for at least 12 months Aggressive cholesterol control Risk factors modification Consider staged angioplasty of the LCx and RCA depending on the patient clinical course and follow-up Follow-up with the patient
[2024-07-16 23:13] LABS: Glucose,Whole Blood 107 mg/dL (70-110)
[2024-07-17 04:09] LABS: Glucose,Whole Blood 110 mg/dL (70-110)
[2024-07-17 04:34] LABS: ALT 33 U/L (4-49); AST 38 U/L (17-59); African American GFR (CKD) >90 (>60 ml/min/1.73 sqM); Albumin 2.6 g/dL (3.5-5.0); Alkaline Phosphatase 46 U/L (38-126); Anion Gap 2 mmol/L; Blood Urea Nitrogen 16 mg/dL (9-20); Carbon Dioxide 23 mmol/L (22-30); Chloride 110 mmol/L (98-107); Glucose 103 mg/dL (74-99); Non-African American GFR(CKD) 90 (>60 ml/min/1.73 sqM); Potassium 4.2 mmol/L (3.5-5.1); Sodium 135 mmol/L (137-145); Total Bilirubin 0.6 mg/dL (0.2-1.3); Total Protein 5.4 g/dL (6.3-8.2)
[2024-07-17 04:36] LABS: Anisocytosis Slight; Basophils % (A) 0 %; Eosinophils # (A) 0.2 k/uL (0-0.7); Eosinophils % (A) 3 %; HCT 27.6 % (39.0-53.0); HGB 8.7 gm/dL (13.0-17.5); Hypochromasia Moderate; Lymphocytes # (A) 1.1 k/uL (1.0-4.8); Lymphocytes % (A) 21 %; MCH 21.2 pg (25.0-35.0); MCHC 31.4 g/dL (31.0-37.0); MCV 67.6 fL (80.0-100.0); Mean Platelet Volume 10.4; Microcytosis Marked; Monocytes # (A) 0.4 k/uL (0-1.0); Monocytes % (A) 7 %; Neutrophils # (A) 3.6 k/uL (1.3-7.7); Neutrophils % (A) 65 %; RBC 4.08 m/uL (4.30-5.90); RDW 17.1 % (11.5-15.5); WBC 5.5 k/uL (3.8-10.6)
[2024-07-17 04:37] LABS: Platelet Count 97 k/uL (150-450)
[2024-07-17 04:47] LABS: ABG Base Excess -0.3 mmol/L; ABG HCO3 25 mmol/L (21-25); ABG Oxygen Saturation 98.8 % (94-97); ABG PCO2 40 mmHg (35-45); ABG PO2 112 mmHg (83-108); ABG TCO2 26 mmol/L (19-24)
[2024-07-17 05:39] LABS: Allen Test Performed? no
[2024-07-17] MEDS ORDERED: HEPARIN SODIUM,PORCINE (1 ML) 2,500 UNIT in SODIUM CHLORIDE 0.9% 250 ML IRRIGATION PRN (07:00)
[2024-07-17] MEDS ORDERED: HEPARIN SODIUM,PORCINE 10,000 UNIT in SODIUM CHLORIDE 0.9% 1,000 ML IRRIGATION PRN (07:00)
--- NOTE | 2024-07-17 07:40 | XR ---
EXAMINATION TYPE: XR chest 1V portable DATE OF EXAM: 07/17/2024 COMPARISON: 07/16/2024 CLINICAL INDICATION: Male, 78 years old with history of Intubated; , TECHNIQUE: XR chest 1V portable views of the chest. FINDINGS: ET tube 3.7 cm above santino. Central line stable in positioning. Diffuse interstitial pattern with bi lateral consolidation and pleural effusion stable. Mild cardiomegaly. Degenerative change of the spin e. Postsurgical change overlying cervical spine. No sizable pneumothorax. Arthropathy of the shoulder s. NG tube is seen coursing in the left upper quadrant and out of the field of view likely within th e stomach. IMPRESSION: 1. Stable diffuse pleural-parenchymal changes or early CHF. Otherwise consider pneumonia. [facility], , 07/17/2024 7:38 AM
--- NOTE | 2024-07-17 08:30 | CT ---
EXAMINATION TYPE: CT brain kathyine wo con DATE OF EXAM: 07/17/2024 12:22 AM COMPARISON: None. CLINICAL INDICATION: Male, 78 years old with history of right sided weakness. suspect cva over left parie, repeat head CT C-spine, dentures in when vent was placed TECHNIQUE: CT of the brain is performed utilizing 3 mm thick sections through the posterior fossa and 3 mm thick sections through the remaining calvarium. Study is performed within 24 hours of arrival to the hospital. Contrast used: mL of , (none if empty) Oral contrast used: (none if empty) CT DLP: 1772.9 mGycm, Automated exposure control for dose reduction was used. FINDINGS: No abnormal hyperdensity is present to suggest an acute intracranial hemorrhage. No mass lesion is evident. No acute infarcts are evident. Periventricular white matter hypodensity is present within the base o f chronic white matter ischemic changes. There is a more focal area within the left watershed subcort ical white matter may be an older cortical infarct present previously. Findings are less distinct on current examination. Ventricles and sulci are prominent for the patient age. Paranasal sinuses and mastoid air cells within the [id number] are clear. IMPRESSIONS: 1. No acute intracranial process. Follow-up MRI can be performed as clinically indicated. 2. Chronic appearing periventricular white matter ischemic changes less pronounced than prior examina tion. CT cervical spine. COMPARISON: None TECHNIQUE: CT of the cervical spine is performed in the axial plane at 2 mm thick sections. Reconstr ucted images in the coronal, and sagittal plane are reviewed on the computer. FINDINGS: No acute fractures are evident. Vertebral body alignment is normal. Post anterior cervical fusion is present at C3-C6. Large left paracentral lateral spur at C7 likely s evere left foraminal stenosis. Bilateral foraminal stenosis from uncovertebral joint atrophy is prese nt C6-7 C5-6 and C4-5 right foraminal narrowing is present C3-4 IMPRESSION: 1. No acute osseous abnormality cervical spine [facility], , 07/17/2024 8:28 AM
[2024-07-17] MEDS: TICAGRELOR 90 MG TAB PO SCH (09:01)
[2024-07-17] MEDS: FUROSEMIDE 10 MG/ML 2 ML VIAL IV ONE (11:24)
[2024-07-17] MEDS: ENOXAPARIN 40 MG/0.4 ML SYRINGE SQ SCH (11:25)
[2024-07-17] MEDS: SENNOSIDES 8.6 MG TAB PO PRN (11:25)
[2024-07-17] MEDS: FUROSEMIDE 10 MG/ML 2 ML VIAL IV SCH (11:26)
[2024-07-17 11:37] LABS: Glucose,Whole Blood 121 mg/dL (70-110)
--- NOTE | 2024-07-17 12:12 | P.PN ---
Subjective Progress Note Date: 07/17/24 [facility] The patient is a 78-year-old gentleman with a past medical history significant for hypertension and rheumatoid arthritis and recently diagnosed of COVID-19 infection all this information was obtained from the chart. Currently the patient is intubated and he is on mechanical ventilation and history was taken from the chart as well as from the nurse taking care of the patient. The patient was in his usual state of health till earlier today when he was doing some work in his backyard and he was experiencing symptoms of chest discomfort and shortness of breath. Subsequent ambulance was called and upon arrival the patient collapsed and he was pulseless. CPR initiated for 5 minutes and brought to normal sinus mechanism. Subsequently patient was intubated and placed on mechanical ventilation. He was hypotensive and he continues to be hypotensive requiring norepinephrine. He was seen in intensive care unit. Currently he is still hemodynamically unstable and requiring norepinephrine. He is in sinus mechanism. I did review the EKG and that showed sinus mechanism with deep T wave inversion in the anterolateral leads concerning for severe underlying coronary artery disease versus stress-induced cardiomyopathy. At the same time the patient was admitted to the hospital last month with a chest discomfort in the setting of COVID with abnormal cardiac enzymes and he was treated medically at that point. Please note that the patient was experiencing chest discomfort and shortness of breath earlier today. No history of coronary artery disease or congestive heart failure or cardiac arrhythmia. The first set of troponin came in to be abnormal. The physical examination is remarkable for patient intubated on mechanical ventilation hemodynamically unstable with regular rate and rhythm and systolic murmur at the apical area and diminished breathing sounds bilaterally. July 12, 2024 The patient was seen and evaluated this morning. He continues to be intubated on mechanical ventilation and continues to be also on vasopressors. He is maintaining normal sinus mechanism. The plan is to pursue with a heart catheterization. The physical examination is remarkable for regular rhythm with a distant heart sounds and diminished breathing sounds bilaterally and no edema was noted in the lower extremities. July 13, 2024 Patient is seen and examined at bedside this a.m. He continues to be on ventilator support and Impella support. CVP 10 mmHg, MAP 65 mmHg, SBP 110, DBP 50 mmHg. P7 on Impella, off pressors Good urine output Hemoglobin 10.8, platelets 123, mild hemolysis noticed, LDH is elevated, fibrinogen is elevated but in range. July 14, 2024 Patient is seen and examined at bedside this a.m. He continues to be on ventilator support and Impella support. CVP 8 to 10 mmHg, MAP of 65 mmHg, SBP around 100 mmHg, DBP around 50 mmHg Last 9 was on high level. This morning he was on P7 Impella. Off pressors since yesterday afternoon. Continues to have good urine output Hemoglobin 9.9, platelets 106, fibrogenic 507, BUN 17, creatinine 0.8 We tried weaning to P4 levels. At P4 the [place] cardiac index was around 3.2. FUR STYLIST still less than 0.6. Patient was given sedation vacation and but neurological evaluation was not appropriate as sedation medication was not long enough. July 15, 2024 During sedation vacation and neurological evaluation patient was able to do some purposeful movement however the motor strength in right upper extremity was lower as compared to her extremities. Due to the focal nature we performed a CT head which showed some concerns of possible left parietal lobe subacute CVA. Case was discussed with neurology who recommended to continue anticoagulation for now and consideration of higher benefit over risk. At P4, SBP around 120s, DBP around 40s, MAP around 65, Cardiac index 3.1 L/min/m. July 16, 2024 Patient is seen and examined at bedside this a.m. Last night patient had brief hematuria. For this we stopped heparin temporarily and patient's urine cleared up. Patient is back on IV heparin drip with no further hematuria. Patient is maintaining good blood pressure at P4 Impella support. Adequate peripheral p erfusion with good urine output. Jul 17 2024 Patient was seen and examined at bedside this a.m. Patient had PCI of LAD done yesterday by Dr. Nobles. Impella was removed. Hemodynamically stable. Good urine output. Still in positive fluid balance. Planning for a sedation vacation and weaning trial today. Chest x-ray shows bilateral pulmonary congestion. Hemoglobin platelets and kidney function are stable. On exam Intubated and sedated, on ventilator support, ET tube in place, appropriate air entry in bilateral lung pineda S1-S2 audible, Impella device in place with murmur from Impella device appreciated. 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 Multiple comorbid conditions Plan Give 1 dose of IV Lasix 40 mg prior to the breathing trial. Continue dual antiplatelet therapy, with aspirin and Brilinta. Continue Lipitor. Hold beta-kaela for now. Use nitroglycerin as needed if SBP is more than 130 mmHg. Case was discussed with ICU attending. And the nursing staff. Supportive care and vent care as per the ICU team. Objective - Vital Signs Vital signs: Vital Signs Temp 98.9 F 07/17/24 09:00 Pulse 57 L 07/17/24 11:00 Resp 18 07/17/24 11:00 BP 118/51 07/17/24 10:00 Pulse Ox 99 07/17/24 11:00 FiO2 40 07/17/24 09:00 Intake & Output 07/16/24 07/17/24 07/17/24 18:59 06:59 18:59 Intake Total 970.599 9912.136 599.259 Output Total 365 610 140 Balance 014.050 9843.136 459.259 Weight 110 kg 110 kg Intake: IV 582.0 891 285 Sodium Bicarb (1 Meq/ml) 152.0 12.5 ml In Dextrose 5% in Water 500 ml @ Per Protocol IV DIRECTED HOLLI Rx#:[id number] Sodium Chloride 0.9% 1, 825 255 000 ml In Empty Bag 1 bag @ 75 mls/hr IV .[id number] HOLLI Rx#:[id number] a line x 2 60 66 30 Intake, IV Titration 97.187 555.136 49.259 Amount Heparin Sod,Pork in 0.45% 208.774 NaCl 25,000 unit In 0.45 % NaCl 1 250ml.bag @ 11. 023 UNITS/KG/HR 10 mls/hr IV .Q24H HOLLI Rx#: [id number] Nitroglycerin-D5w Pmx 50 26.425 75.875 mg In Dextrose/Water 1 250ml.bag @ 5 MCG/MIN 1.5 mls/hr IV .Q24H HOLLI Rx#: [id number] fentaNYL (PF). 1,000 mcg 0 In Sodium Chloride 0.9% 80 ml @ 0.5 MCG/KG/HR 4. 536 mls/hr IV .[id number] HOLLI Rx#:[id number] propofoL 1,000 mg In 70.762 270.487 49.259 Empty Bag 1 bag @ 15 MCG/ KG/MIN 8.165 mls/hr IV . [id number] HOLLI Rx#:[id number] Tube Feeding 280 175 Other 60 60 90 Output: Urine 365 610 140 Other: Voiding Method Indwelling Catheter Indwelling Catheter ABP, PAP, CO, CI - Last Documented Arterial Blood Pressure 143/46 - Labs CBC & Chem 7: 07/17/24 04:09 07/17/24 04:09 Labs: Abnormal Lab Results - Last 24 Hours (Table) 07/16/24 07/16/24 07/17/24 Range/Units 13:05 13:05 04:09 RBC (4.30-5.90) m/uL Hgb (13.0-17.5) gm/dL Hct (39.0-53.0) % MCV (80.0-100.0) fL MCH (25.0-35.0) pg RDW (11.5-15.5) % Plt Count (150-450) k/uL Fibrinogen 610 H (200-500) mg/dL ABG pO2 (83-108) mmHg ABG Total CO2 (19-24) mmol/L ABG O2 Saturation (94-97) % Hemoglobin (13.0-17.5) gm/dL Sodium 135 L (137-145) mmol/L Chloride 110 H (98-107) mmol/L Glucose 103 H (74-99) mg/dL POC Glucose (mg/dL) (70-110) mg/dL Calcium 8.0 L (8.4-10.2) mg/dL Lactate Dehydrogenase 475 H (120-246) U/L Total Protein 5.4 L (6.3-8.2) g/dL Albumin 2.6 L (3.5-5.0) g/dL 07/17/24 07/17/24 07/17/24 Range/Units 04:09 04:45 11:35 RBC 4.08 L (4.30-5.90) m/uL Hgb 8.7 L (13.0-17.5) gm/dL Hct 27.6 L (39.0-53.0) % MCV 67.6 L (80.0-100.0) fL MCH 21.2 L (25.0-35.0) pg RDW 17.1 H (11.5-15.5) % Plt Count 97 L (150-450) k/uL Fibrinogen (200-500) mg/dL ABG pO2 112 H (83-108) mmHg ABG Total CO2 26 H (19-24) mmol/L ABG O2 Saturation 98.8 H (94-97) % Hemoglobin 8.1 L (13.0-17.5) gm/dL Sodium (137-145) mmol/L Chloride (98-107) mmol/L Glucose (74-99) mg/dL POC Glucose (mg/dL) 121 H (70-110) mg/dL Calcium (8.4-10.2) mg/dL Lactate Dehydrogenase (120-246) U/L Total Protein (6.3-8.2) g/dL Albumin (3.5-5.0) g/dL Microbiology - Last 24 Hours (Table) 07/11/24 04:47 Blood Culture - Final Blood
--- NOTE | 2024-07-17 13:06 | P.PN ---
Subjective Progress Note Date: 07/17/24 This is a 78-year-old male patient with a history of rheumatoid arthritis, hypertension, BPH. He was recently here in May for atypical chest pain and COVID-19 pneumonitis. Discharged home on May 15, 2024. Since that time he had been doing well. Pain the patient was having a 2 to 3-day history of worsening shortness of breath. He was active yesterday and cleaning out his garage and did complain of shortness of breath and some chest discomfort. He developed worsening shortness of breath throughout the night. EMS was called and the arrival the patient had collapse. He was pulseless and CPR was started taking approximately 5 minutes until return of spontaneous circulation. He was brought in and being assisted with a bag valve mask device and a pulse ox of 74 and then intubated in the emergency department. He was brought up to the intensive care unit. He is currently intubated, sedated on the mechanical ventilator at a rate of 24, tidal volume 450, FiO2 90% and a PEEP of 10. Blood gases had revealed a PaO2 of 70, pCO2 of 62 and a pH of 7.14 on 100% FiO2. He is on fentanyl at 1.5 mcg/kg/h. He is currently on a heparin drip per weight- based protocol. Norepinephrine at 13.5 mcg/min. Propofol at 30 mcg/kg/min. CT scan of the brain revealed no acute findings. CT angiogram revealed no evidence of pulmonary embolism. There is small bilateral effusions. Some patchy airspace opacity/consolidation throughout both lungs. Mild groundglass opacities. White count 19.7. Hemoglobin 14.6. Platelets 208. Sodium 138. Potassium 4.3. Bicarb 13. BUN 18. Creatinine 1.13. Glucose 313. Troponin 0.588. proBNP 2770. TSH 7.36. Viral screen is negative. The patient is seen today July 12, 2024 in follow-up in the intensive care unit. He remains intubated sedated on the mechanical ventilator. Currently in assist-control mode with a rate of 30, tidal volume 450, FiO2 40% and a PEEP of 10. Morning blood gases revealed a PaO2 of 163, pCO2 of 26 and a pH of 7.49 and 50% FiO2. The PEEP will be decreased to 5. He is currently on cefazolin. Remains on bronchodilators. He is continued on a heparin drip per weight-based protocol. Norepinephrine at 0.03 mcg/kg/min. Propofol at 35 mcg/kg/min. Fentanyl drip at 1.25 mcg/kg/h. White count 9.6. Hemoglobin 11.4. Platelets 166. Sodium 136. Potassium 3.9. Bicarb 18. BUN 29. Creatinine 1.47. Glucose 114. Continue tube feedings of vital AF at a rate of 10 with a goal of 57. Will be on hold for cardiac catheterization today 07/13/2024, the patient is being seen for a follow-up. The patient remains intubated on the mechanical ventilator. He requires mechanical support for his cardiogenic shock postcardiac arrest and the patient is an Impella with a P7 support and a 3.1 L/min of augmentation. The patient remains on sedatives and the patient is currently on propofol the patient is 0.7. On the mechanical ventilator at a rate of 30, tidal volume of 450, FiO2 40% with PEEP of 5. Blood gas showed pH of 7.46 with a pCO2 of 27 and pO2 of 97. Chest x-ray shows cardiomegaly without any acute abnormalities. Orotracheal tubes are in good perfusion. The patient is currently on KVO IV fluids. The patient is on no pressors and the patient was taken off norepinephrine and is producing adequate amount of urine output in the order of 50 cc an hour. He remains on IV heparin. Creatinine is improved and the patient's creatinine peaked at 1.47 and currently is down to 1.08. He has a left subclavian triple-lumen catheter in place. Wastewater Design Engineer on the case and the patient underwent a cardiac catheterization on 07/12/2024 and the patient was found to have extremely calcified right and left coronary system with evidence of triple-vessel coronary artery disease and severely elevated left ventricular end-diastolic pressure. The white cell count at 7.9 with a hemoglobin 10.8 and a platelet count of 123. Sodium levels at 135, bicarbonate 18, BUN 27 with a creatinine of 1.08. LDH level is at 984. The echocardiogram was completed and the patient was found to have severe impairment of the LV function with an ejection fraction of 25 to 30%. There is also severe cardiomyopathy with wall motion abnormalities involving the apical area that was quite hypokinetic. The patient remains on aspirin. The patient remains on statins and the patient is currently on Lipitor 40 mg p.o. daily. Remains on IV heparin. He is also on vital AF for enteral feeding and nutritional support. Wastewater Design Engineer on the case. Cardiothoracic surgery was also involved in his care. The patient was deemed a high surgical risk for coronary intervention and bypass. On 07/14/2024, the patient is being seen for a follow-up. The patient remains sedated and the patient is currently on a combination of propofol running at 40 mcg/kg/min and fentanyl at 0.75 mcg/kg/h. The patient remains well sedated on mechanical ventilator and Impella for mechanical support for cardiogenic shock. This morning, the patient's Impella has been switched to P4 support with an augmentation of 2.5 L/min. The patient remains off pressors. Is producing adequate amount of urine output. Fluid balance is +1 L over the past 24 hours. He is hemolyzing and the hemoglobin is currently down to 9.9. Most recent LDH is at 946. At the same time, the patient remains on the mechanical ventilator. He is on assist-control mode with rate of 18, tidal volume of 450, FiO2 40% with a PEEP of 5. The blood gas from today shows a pH of 7.33 with a pCO2 of 41 and pO2 of 97. Chest x-ray is consistent with CHF/increased incisional markings consistent with heart failure. Orotracheal tube is in a good location. The patient has diffuse interstitial pattern bilaterally along with cardiomegaly and he has developed some small bilateral pleural effusions worse on the left. He remains on IV heparin. Remains on enteral feeding for additional support and the patient is currently on vital AF at rate of 35 cc an hour. IV fluids are currently at KVO. The patient's cardiac rhythm is sinus. The white cell count is 6.7 with a hemoglobin 9.9 and a platelet count of 106. The BUN is 17 with a creatinine of 0.8 and a sodium levels at 137, bicarb is at 22. 07/15/2024, the patient is being seen for a follow-up. The patient has signs of anoxic encephalopathy. The patient was given sedation holiday yesterday and he did not demonstrate adequate neurologic recovery. It was noted that he was not moving his right side effectively compared to the left. Based on that, the patient was placed back on propofol which is currently running at 40 mcg/kg/min. Attempts to wean off his Impella failed yesterday the patient became hypote nsive. The patient was given IV fluids and norepinephrine and the patient is currently off norepinephrine. He has Impella is augmenting at P4 level with 2.5 L/min augmentation. Fluid balance is +600 cc over the past 24 hours and the patient is producing urine output in the order of 30 to 40 cc an hour. No diuretics for now. Chest x-ray still showing CHF and bilateral pleural effusion right more than left. Remains on mechanical ventilator, assist-control mode with rate of 16, tidal volume of 450, FiO2 40% with a PEEP of 5. pH is 7.34 with a pCO2 of 43 and pO2 of 86. He is doing abdominal breathing and based on that, the patient was switched to pressure control mode of mechanical venti lation. He is on vital AF at a rate of 35 cc an hour. The white cell count is 7.4, hemoglobin 9.6, his platelet count is at 116. LDH level is 625. Electrolytes are all within normal limits with a BUN of 14 and a creatinine of 0.7. Noted the patient's platelet count has dropped during this current admission and the patient remains on IV heparin. A limited echocardiogram was done yesterday and the patient was found to have impaired LV function with an estimated ejection fraction of around 40%. The patient also had segmental wall motion abnormalities. There was moderate LV dysfunction based on the echocardiogram. 07/16/2024, the patient is being seen for a follow-up. Events from yesterday was noted. Following a failed sedation holiday, the patient was noted to have some right-sided weakness. Based on that, a CAT scan of the brain was done and it showed a low-attenuation area in the left parietal lobe suspecting an evolving stroke. Another sedation holiday will be given today. Meanwhile, the patient will be kept on Impella pending cardiac catheterization and coronary interve ntion as planned by cardiology. The patient is currently on a pressure control mode of mechanical ventilation, at rate of 18, pressure control of 20, FiO2 of 40% with a PEEP of 5. Blood gas showed a pH of 7.35 with pCO2 49 and pO2 of 39. Remains on IV heparin. He had some episodic hematuria but subsided. Fluid balance is -687 cc over the past 24 hours. Patient was receiving enteral feeding for nutritional support and currently it is on hold in preparation for cardiac catheterization. He was receiving vital AF at rate of 35 cc an hour. IV fluids are currently at KVO. The patient remains on IV Lasix. Meanwhile, the white cell count is 5.9, hemoglobin is 8.9 and a platelet count is 20. The patient's BUN is 15 with a creatinine of 0.7. Serum bicarb is at 28. Sodium levels at 137 and a potassium level is at 4.2. The patient remains on Impella with P4 support and 2.5 liters per minute of cardiac augmentation. The renal function remains stable with a BUN of 15 and a creatinine of 0.7. The LDH level is 511. Chest x-ray findings from today shows CHF, findings are essentially stable. He is afebrile. 07/17/2024, patient being seen for follow up. currently sedated on propopfol 30. fentanyl 0.5. was given sedation holiday yesterday and did not demonstrate any neurologic reovery. not moving right side compared to left. yesterday patient went to crime lab analyst for PCI with stent placement in proximal and mid LAD. pt currently off the impella. heparin has been discontinued. On nitro overnight due to htn, currently off it. Fluid balance -1.5 L over past 24 hours. Producing urine at a rate of 30 cc/hr. Urine output 0.975 L. IV fluids KVO. Remains on mechanical ventilator, pressure-control mode with rate of 18, expiratory time of 0.8, PEEP of 5. pH is 7.34 with a pCO2 of 49 and pO2 of 92. He is on vital AF at a rate of 35 cc an hour. The white cell count is 5.5, hemoglobin 8.7, his platelet count is at 97. Electrolytes are all within normal limits with a BUN of 16 and a creatinine of 0.73. CT head/cervical displayed no acute intercranial process, no acute osseous abnormality in the spine. Chest xray shows stable diffuse pleural-parenchymal changes. Objective - Vital Signs Vital signs: Vital Signs Temp 98.8 F 07/17/24 04:00 Pulse 51 L 07/17/24 06:00 Resp 18 07/17/24 06:00 BP 116/51 07/17/24 06:00 Pulse Ox 98 07/17/24 06:00 FiO2 40 07/17/24 04:00 Intake & Output 07/16/24 07/16/24 07/17/24 06:59 18:59 06:59 Intake Total 968.326 411.416 4520.136 Output Total 415 365 610 Balance 553.326 649.943 1752.136 Weight 110 kg 110 kg 110 kg Intake: IV 319.2 582.0 891 0.9 KVO @ 20 80 Sodium Bicarb (1 Meq/ml) 167.2 152.0 12.5 ml In Dextrose 5% in Water 500 ml @ Per Protocol IV DIRECTED [facility] Rx#:[id number] Sodium Chloride 0.9% 1, 825 000 ml In Empty Bag 1 bag @ 75 mls/hr IV .[id number] [facility] Rx#:[id number] a line x 2 72 60 66 Intake, IV Titration 444.126 97.187 555.136 Amount Heparin Sod,Pork in 0.45% 107.747 208.774 NaCl 25,000 unit In 0.45 % NaCl 1 250ml.bag @ 11. 023 UNITS/KG/HR 10 mls/hr IV .Q24H [facility] Rx#: [id number] Nitroglycerin-D5w Pmx 50 26.425 75.875 mg In Dextrose/Water 1 250ml.bag @ 5 MCG/MIN 1.5 mls/hr IV .Q24H [facility] Rx#: [id number] fentaNYL (PF). 1,000 mcg 96.975 0 In Sodium Chloride 0.9% 80 ml @ 0.5 MCG/KG/HR 4. 536 mls/hr IV .[id number] [facility] Rx#:[id number] propofoL 1,000 mg In 239.404 70.762 270.487 Empty Bag 1 bag @ 15 MCG/ KG/MIN 8.165 mls/hr IV . [id number] [facility] Rx#:[id number] Tube Feeding 175 280 Other 30 60 60 Output: Urine 415 365 610 Other: Voiding Method Indwelling Catheter Indwelling Catheter Indwelling Catheter ABP, PAP, CO, CI - Last Documented Arterial Blood Pressure 119/41 - Exam GENERAL EXAM: Intubated, sedated 78-year-old male, on the mechanical ventilator, in no apparent distress. Patient is currently on propofol HEAD: Normocephalic. EYES: Normal reaction of pupils, equal size. NOSE: Clear with pink turbinates. THROAT: Oral endotracheal and gastric tube secured in place. No erythema or exudates. NECK: No masses, no JVD. CHEST: No chest wall deformity. LUNGS: Equal air entry with bilateral scattered rhonchi. CVS: S1 and S2 normal with no audible murmur, regular rhythm. ABDOMEN: No hepatosplenomegaly, normal bowel sounds, no guarding or rigidity. SPINE: No scoliosis or deformity SKIN: No rashes CENTRAL NERVOUS SYSTEM: Sedated, tone is normal in all 4 extremities. EXTREMITIES: There is no peripheral edema. No clubbing, no cyanosis. Peripheral pulses diminished in the lower extremities although there is still some weak pulses. Extremities are cold. No mottling. No cyanosis. - Labs CBC & Chem 7: 07/17/24 04:09 07/17/24 04:09 Labs: Abnormal Lab Results - Last 24 Hours (Table) 07/16/24 07/16/24 07/16/24 Range/Units 10:05 10:30 11:55 RBC (4.30-5.90) m/uL Hgb (13.0-17.5) gm/dL Hct (39.0-53.0) % MCV (80.0-100.0) fL MCH (25.0-35.0) pg RDW (11.5-15.5) % Plt Count (150-450) k/uL APTT 65.0 H (22.0-30.0) sec Fibrinogen (200-500) mg/dL ABG pO2 (83-108) mmHg ABG Total CO2 (19-24) mmol/L ABG O2 Saturation (94-97) % Hemoglobin (13.0-17.5) gm/dL Sodium (137-145) mmol/L Chloride (98-107) mmol/L Glucose (74-99) mg/dL POC Glucose (mg/dL) 113 H (70-110) mg/dL Calcium (8.4-10.2) mg/dL Lactate Dehydrogenase (120-246) U/L Total Protein (6.3-8.2) g/dL Albumin (3.5-5.0) g/dL Urine Protein 1+ H (Negative) Urine Blood Large H (Negative) Ur Leukocyte Esterase Trace H (Negative) Urine RBC >182 H (0-5) /hpf Urine WBC 9 H (0-5) /hpf Urine Mucus Rare H (None) /hpf 07/16/24 07/16/24 07/17/24 Range/Units 13:05 13:05 04:09 RBC (4.30-5.90) m/uL Hgb (13.0-17.5) gm/dL Hct (39.0-53.0) % MCV (80.0-100.0) fL MCH (25.0-35.0) pg RDW (11.5-15.5) % Plt Count (150-450) k/uL APTT (22.0-30.0) sec Fibrinogen 610 H (200-500) mg/dL ABG pO2 (83-108) mmHg ABG Total CO2 (19-24) mmol/L ABG O2 Saturation (94-97) % Hemoglobin (13.0-17.5) gm/dL Sodium 135 L (137-145) mmol/L Chloride 110 H (98-107) mmol/L Glucose 103 H (74-99) mg/dL POC Glucose (mg/dL) (70-110) mg/dL Calcium 8.0 L (8.4-10.2) mg/dL Lactate Dehydrogenase 475 H (120-246) U/L Total Protein 5.4 L (6.3-8.2) g/dL Albumin 2.6 L (3.5-5.0) g/dL Urine Protein (Negative) Urine Blood (Negative) Ur Leukocyte Esterase (Negative) Urine RBC (0-5) /hpf Urine WBC (0-5) /hpf Urine Mucus (None) /hpf 07/17/24 07/17/24 Range/Units 04:09 04:45 RBC 4.08 L (4.30-5.90) m/uL Hgb 8.7 L (13.0-17.5) gm/dL Hct 27.6 L (39.0-53.0) % MCV 67.6 L (80.0-100.0) fL MCH 21.2 L (25.0-35.0) pg RDW 17.1 H (11.5-15.5) % Plt Count 97 L (150-450) k/uL APTT (22.0-30.0) sec Fibrinogen (200-500) mg/dL ABG pO2 112 H (83-108) mmHg ABG Total CO2 26 H (19-24) mmol/L ABG O2 Saturation 98.8 H (94-97) % Hemoglobin 8.1 L (13.0-17.5) gm/dL Sodium (137-145) mmol/L Chloride (98-107) mmol/L Glucose (74-99) mg/dL POC Glucose (mg/dL) (70-110) mg/dL Calcium (8.4-10.2) mg/dL Lactate Dehydrogenase (120-246) U/L Total Protein (6.3-8.2) g/dL Albumin (3.5-5.0) g/dL Urine Protein (Negative) Urine Blood (Negative) Ur Leukocyte Esterase (Negative) Urine RBC (0-5) /hpf Urine WBC (0-5) /hpf Urine Mucus (None) /hpf Microbiology - Last 24 Hours (Table) 07/11/24 04:47 Blood Culture - Final Blood Assessment and Plan Plan: Plan: #. Outside the hospital cardiac arrest Required 5 minutes of CPR prior to return of spontaneous circulation Rule out underlying anoxic encephalopathy. CT Brain yesterday displayed no acute intracranial bleed. Focal region of low-attenuation within the left parietal lobe which may represent an age indeterminate infarct. Will repeat CT brain scan per neurology #. Encephalopathy, rule out anoxic encephalopathy The patient remains on propofol. Sedation holiday failed yesterday and there is probably some right-sided weakness noted on examination. Repeat sedation holiday to confirm right-sided weakness #. Acute non-ST segment elevation myocardial infarction status post cardiac catheterization indicating triple-vessel coronary artery disease #. Severe ischemic cardiomyopathy with an ejection fraction of 25 to 30% Segmental wall motion abnormalities. Limited echocardiogram shows impaired LV function and estimated ejection fraction is at 40% #. Cardiogenic shock secondary to above and the patient has an Impella for mechanical support, s/p PCI with stent placement in the mid and proximal LAD Currently off Impella No pressors this morning #. Acute hypoxemic respiratory failure secondary to above Requiring intubation and mechanical ventilatory support. Chest x-ray is consistent with CHF and bilateral pleural effusions. #. Thrombocytopenia Patient with episode of hematuria yesterday, heparin paused for 2 hours. Hematuria resolved Still on IV heparin #. Anemia, multifactorial, acute Hemoglobin stable for now. This could be potentially raised to Impella induced hemolysis. Severe metabolic acidosis at time of admission, improvement in acid-base status Acute kidney injury, recovered and the patient is producing adequate amount of urine output Recent discharge in May 2024 for atypical chest pain and COVID-19 infection/pneumonitis Rheumatoid arthritis Hypertension Benign prostatic hyperplasia Plan: Continue ventilator support, switch this patient to a pressure control mode of mechanical ventilation with a pressure control of 18, expiratory time of 0.8, PEEP of 5 Give the patient sedation holiday and assess mental status change, assess right side versus left side function Neurology following S/p PCI with stent placement in proximal and mid LAD Currently off Impella urine output and cardiac output. Continue aspirin IV heparin discontinued Monitor platelet count Patient is currently off pressors IV Lasix 20 mg q12 hrs Continue tube feedings for nutritional support currently vital AF 1.2 at 10 with a goal of 57 S/p Novelty Chain Maker for PCI at LAD, currently off Impella We will continue to follow and make further recommendations based on his clinical status Condition remains critical. Prognosis poor based on above-mentioned comorbidities. Will continue to follow along with the rest of the consultants. His evaluation was done more than 30 minutes.
--- NOTE | 2024-07-17 13:57 | P.PN ---
Subjective Progress Note Date: 07/17/24 This is a 78-year-old male patient with a history of rheumatoid arthritis, hypertension, BPH. He was recently here in May for atypical chest pain and COVID-19 pneumonitis. Discharged home on May 15, 2024. Since that time he had been doing well. Pain the patient was having a 2 to 3-day history of worsening shortness of breath. He was active yesterday and cleaning out his garage and did complain of shortness of breath and some chest discomfort. He developed worsening shortness of breath throughout the night. EMS was called and the arrival the patient had collapse. He was pulseless and CPR was started taking approximately 5 minutes until return of spontaneous circulation. He was brought in and being assisted with a bag valve mask device and a pulse ox of 74 and then intubated in the emergency department. He was brought up to the intensive care unit. He is currently intubated, sedated on the mechanical ventilator at a rate of 24, tidal volume 450, FiO2 90% and a PEEP of 10. Blood gases had revealed a PaO2 of 70, pCO2 of 62 and a pH of 7.14 on 100% FiO2. He is on fentanyl at 1.5 mcg/kg/h. He is currently on a heparin drip per weight- based protocol. Norepinephrine at 13.5 mcg/min. Propofol at 30 mcg/kg/min. CT scan of the brain revealed no acute findings. CT angiogram revealed no evidence of pulmonary embolism. There is small bilateral effusions. Some patchy airspace opacity/consolidation throughout both lungs. Mild groundglass opacities. White count 19.7. Hemoglobin 14.6. Platelets 208. Sodium 138. Potassium 4.3. Bicarb 13. BUN 18. Creatinine 1.13. Glucose 313. Troponin 0.588. proBNP 2770. TSH 7.36. Viral screen is negative. The patient is seen today July 12, 2024 in follow-up in the intensive care unit. He remains intubated sedated on the mechanical ventilator. Currently in assist-control mode with a rate of 30, tidal volume 450, FiO2 40% and a PEEP of 10. Morning blood gases revealed a PaO2 of 163, pCO2 of 26 and a pH of 7.49 and 50% FiO2. The PEEP will be decreased to 5. He is currently on cefazolin. Remains on bronchodilators. He is continued on a heparin drip per weight-based protocol. Norepinephrine at 0.03 mcg/kg/min. Propofol at 35 mcg/kg/min. Fentanyl drip at 1.25 mcg/kg/h. White count 9.6. Hemoglobin 11.4. Platelets 166. Sodium 136. Potassium 3.9. Bicarb 18. BUN 29. Creatinine 1.47. Glucose 114. Continue tube feedings of vital AF at a rate of 10 with a goal of 57. Will be on hold for cardiac catheterization today 07/13/2024, the patient is being seen for a follow-up. The patient remains intubated on the mechanical ventilator. He requires mechanical support for his cardiogenic shock postcardiac arrest and the patient is an Impella with a P7 support and a 3.1 L/min of augmentation. The patient remains on sedatives and the patient is currently on propofol the patient is 0.7. On the mechanical ventilator at a rate of 30, tidal volume of 450, FiO2 40% with PEEP of 5. Blood gas showed pH of 7.46 with a pCO2 of 27 and pO2 of 97. Chest x-ray shows cardiomegaly without any acute abnormalities. Orotracheal tubes are in good perfusion. The patient is currently on KVO IV fluids. The patient is on no pressors and the patient was taken off norepinephrine and is producing adequate amount of urine output in the order of 50 cc an hour. He remains on IV heparin. Creatinine is improved and the patient's creatinine peaked at 1.47 and currently is down to 1.08. He has a left subclavian triple-lumen catheter in place. [employer] on the case and the patient underwent a cardiac catheterization on 07/12/2024 and the patient was found to have extremely calcified right and left coronary system with evidence of triple-vessel coronary artery disease and severely elevated left ventricular end-diastolic pressure. The white cell count at 7.9 with a hemoglobin 10.8 and a platelet count of 123. Sodium levels at 135, bicarbonate 18, BUN 27 with a creatinine of 1.08. LDH level is at 984. The echocardiogram was completed and the patient was found to have severe impairment of the LV function with an ejection fraction of 25 to 30%. There is also severe cardiomyopathy with wall motion abnormalities involving the apical area that was quite hypokinetic. The patient remains on aspirin. The patient remains on statins and the patient is currently on Lipitor 40 mg p.o. daily. Remains on IV heparin. He is also on vital AF for enteral feeding and nutritional support. [employer] on the case. Cardiothoracic surgery was also involved in his care. The patient was deemed a high surgical risk for coronary intervention and bypass. On 07/14/2024, the patient is being seen for a follow-up. The patient remains sedated and the patient is currently on a combination of propofol running at 40 mcg/kg/min and fentanyl at 0.75 mcg/kg/h. The patient remains well sedated on m echanical ventilator and Impella for mechanical support for cardiogenic shock. This morning, the patient's Impella has been switched to P4 support with an augmentation of 2.5 L/min. The patient remains off pressors. Is producing adequate amount of urine output. Fluid balance is +1 L over the past 24 hours. He is hemolyzing and the hemoglobin is currently down to 9.9. Most recent LDH is at 946. At the same time, the patient remains on the mechanical ventilator. He is on assist-control mode with rate of 18, tidal volume of 450, FiO2 40% with a PEEP of 5. The blood gas from today shows a pH of 7.33 with a pCO2 of 41 and pO2 of 97. Chest x-ray is consistent with CHF/increased incisional markings consistent with heart failure. Orotracheal tube is in a good location. The patient has diffuse interstitial pattern bilaterally along with cardiomegaly and he has developed some small bilateral pleural effusions worse on the left. He remains on IV heparin. Remains on enteral feeding for additional support and the patient is currently on vital AF at rate of 35 cc an hour. IV fluids are currently at KVO. The patient's cardiac rhythm is sinus. The white cell count is 6.7 with a hemoglobin 9.9 and a platelet count of 106. The BUN is 17 with a creatinine of 0.8 and a sodium levels at 137, bicarb is at 22. 07/15/2024, the patient is being seen for a follow-up. The patient has signs of anoxic encephalopathy. The patient was given sedation holiday yesterday and he did not demonstrate adequate neurologic recovery. It was noted that he was not moving his right side effectively compared to the left. Based on that, the patient was placed back on propofol which is currently running at 40 mcg/kg/min. Attempts to wean off his Impella failed yesterday the patient became hypot ensive. The patient was given IV fluids and norepinephrine and the patient is currently off norepinephrine. He has Impella is augmenting at P4 level with 2.5 L/min augmentation. Fluid balance is +600 cc over the past 24 hours and the patient is producing urine output in the order of 30 to 40 cc an hour. No diuretics for now. Chest x-ray still showing CHF and bilateral pleural effusion right more than left. Remains on mechanical ventilator, assist-control mode with rate of 16, tidal volume of 450, FiO2 40% with a PEEP of 5. pH is 7.34 with a pCO2 of 43 and pO2 of 86. He is doing abdominal breathing and based on that, the patient was switched to pressure control mode of mechanical vent ilation. He is on vital AF at a rate of 35 cc an hour. The white cell count is 7.4, hemoglobin 9.6, his platelet count is at 116. LDH level is 625. Electrolytes are all within normal limits with a BUN of 14 and a creatinine of 0.7. Noted the patient's platelet count has dropped during this current admission and the patient remains on IV heparin. A limited echocardiogram was done yesterday and the patient was found to have impaired LV function with an estimated ejection fraction of around 40%. The patient also had segmental wall motion abnormalities. There was moderate LV dysfunction based on the echocardiogram. 07/16/2024, the patient is being seen for a follow-up. Events from yesterday was noted. Following a failed sedation holiday, the patient was noted to have some right-sided weakness. Based on that, a CAT scan of the brain was done and it showed a low-attenuation area in the left parietal lobe suspecting an evolving stroke. Another sedation holiday will be given today. Meanwhile, the patient will be kept on Impella pending cardiac catheterization and coronary interv ention as planned by cardiology. The patient is currently on a pressure control mode of mechanical ventilation, at rate of 18, pressure control of 20, FiO2 of 40% with a PEEP of 5. Blood gas showed a pH of 7.34 with pCO2 49 and pO2 of 92. Remains on IV heparin. He had some episodic hematuria but subsided. Fluid balance is -687 cc over the past 24 hours. Patient was receiving enteral feeding for nutritional support and currently it is on hold in preparation for cardiac catheterization. He was receiving vital AF at rate of 35 cc an hour. IV fluids are currently at KVO. The patient remains on IV Lasix. Meanwhile, the white cell count is 5.9, hemoglobin is 8.9 and a platelet count is 20. The patient's BUN is 15 with a creatinine of 0.7. Serum bicarb is at 28. Sodium levels at 137 and a potassium level is at 4.2. The patient remains on Impella with P4 support and 2.5 liters per minute of cardiac augmentation. The renal function remains stable with a BUN of 15 and a creatinine of 0.7. The LDH level is 511. Chest x-ray findings from today shows CHF, findings are essentially stable. He is afebrile. 07/17/2024, patient is being seen for a follow-up. The patient underwent a cardiac catheterization yesterday and the patient underwent successful stenting of the proximal and mid LAD. Following that, the Impella was discontinued and the patient was brought back to the intensive care unit. This morning, the patient remains sedated on propofol which is running at 25 mcg/kg/min and fentanyl at 0.5 mcg/kg/h. He remains on assist-control mode of mechanical ventilation. Pressure control cycled, with a pressure control of 20, rate of 16, FiO2 40% with a PEEP of 5. Blood gas showed a pH of 7.4 with a pCO2 40 and pO2 112. Chest x-ray shows cardiomegaly with bilateral pleural effusions and orotracheal tube is in good location. Fluid balance is plus a 1.5 L over the past 24 hours. Patient is on enteral feeding for nutritional support. A repeat CAT scan of the brain and C-spine was done yesterday and the CAT scan showed no acute intracranial process. Chronic appearing periventricular white matter ischemic changes were seen and there were less pronounced on the follow-up CAT scan. The white cell count of 5.5, hemoglobin is 8.7, platelet count is 97, BUN is at 16 with a creatinine of 0.7, bicarb is 23 and sodium levels at 135. LFTs are within normal limits. Afebrile. Hemodynamically stable on no pressors. Off the nitroglycerin drip for now. Cardiac rhythm is sinus bradycardia in the mid 50s. Objective - Vital Signs Vital signs: Vital Signs Temp 98.9 F 11/08/24 09:00 Pulse 54 L 07/17/24 09:00 Resp 18 07/17/24 09:00 BP 117/52 07/17/24 09:00 Pulse Ox 100 07/17/24 09:00 FiO2 40 07/17/24 09:00 Intake & Output 07/16/24 07/17/24 07/17/24 18:59 06:59 18:59 Intake Total 748.075 6113.136 438 Output Total 365 610 90 Balance 614.499 7947.136 348 Weight 110 kg 110 kg Intake: IV 582.0 891 243 Sodium Bicarb (1 Meq/ml) 152.0 12.5 ml In Dextrose 5% in Water 500 ml @ Per Protocol IV DIRECTED [facility] Rx#:[id number] Sodium Chloride 0.9% 1, 825 225 000 ml In Empty Bag 1 bag @ 75 mls/hr IV .[id number] [facility] Rx#:[id number] a line x 2 60 66 18 Intake, IV Titration 97.187 555.136 Amount Heparin Sod,Pork in 0.45% 208.774 NaCl 25,000 unit In 0.45 % NaCl 1 250ml.bag @ 11. 023 UNITS/KG/HR 10 mls/hr IV .Q24H [facility] Rx#: [id number] Nitroglycerin-D5w Pmx 50 26.425 75.875 mg In Dextrose/Water 1 250ml.bag @ 5 MCG/MIN 1.5 mls/hr IV .Q24H [facility] Rx#: [id number] fentaNYL (PF). 1,000 mcg 0 In Sodium Chloride 0.9% 80 ml @ 0.5 MCG/KG/HR 4. 536 mls/hr IV .[id number] [facility] Rx#:[id number] propofoL 1,000 mg In 70.762 270.487 Empty Bag 1 bag @ 15 MCG/ KG/MIN 8.165 mls/hr IV . [id number] [facility] Rx#:[id number] Tube Feeding 280 105 Other 60 60 90 Output: Urine 365 610 90 Other: Voiding Method Indwelling Catheter Indwelling Catheter ABP, PAP, CO, CI - Last Documented Arterial Blood Pressure 130/44 - Exam GENERAL EXAM: Intubated, sedated 78-year-old male, on the mechanical ventilator, in no apparent distress. Patient is currently on a combination of propofol and fentanyl. HEAD: Normocephalic. EYES: Normal reaction of pupils, equal size. NOSE: Clear with pink turbinates. THROAT: Oral endotracheal and gastric tube secured in place. No erythema or exudates. NECK: No masses, no JVD. CHEST: No chest wall deformity. LUNGS: Equal air entry with bilateral scattered rhonchi. CVS: S1 and S2 normal with no audible murmur, regular rhythm. ABDOMEN: No hepatosplenomegaly, normal bowel sounds, no guarding or rigidity. SPINE: No scoliosis or deformity SKIN: No rashes CENTRAL NERVOUS SYSTEM: Sedated, tone is normal in all 4 extremities. EXTREMITIES: There is no peripheral edema. No clubbing, no cyanosis. Peripheral pulses adequate in lower extremities bilaterally.. Extremities are cold. No mottling. No cyanosis. - Labs CBC & Chem 7: 07/17/24 04:09 07/17/24 04:09 Labs: Abnormal Lab Results - Last 24 Hours (Table) 07/16/24 07/16/24 07/16/24 Range/Units 10:05 10:30 11:55 RBC (4.30-5.90) m/uL Hgb (13.0-17.5) gm/dL Hct (39.0-53.0) % MCV (80.0-100.0) fL MCH (25.0-35.0) pg RDW (11.5-15.5) % Plt Count (150-450) k/uL APTT 65.0 H (22.0-30.0) sec Fibrinogen (200-500) mg/dL ABG pO2 (83-108) mmHg ABG Total CO2 (19-24) mmol/L ABG O2 Saturation (94-97) % Hemoglobin (13.0-17.5) gm/dL Sodium (137-145) mmol/L Chloride (98-107) mmol/L Glucose (74-99) mg/dL POC Glucose (mg/dL) 113 H (70-110) mg/dL Calcium (8.4-10.2) mg/dL Lactate Dehydrogenase (120-246) U/L Total Protein (6.3-8.2) g/dL Albumin (3.5-5.0) g/dL Urine Protein 1+ H (Negative) Urine Blood Large H (Negative) Ur Leukocyte Esterase Trace H (Negative) Urine RBC >182 H (0-5) /hpf Urine WBC 9 H (0-5) /hpf Urine Mucus Rare H (None) /hpf 07/16/24 07/16/24 07/17/24 Range/Units 13:05 13:05 04:09 RBC (4.30-5.90) m/uL Hgb (13.0-17.5) gm/dL Hct (39.0-53.0) % MCV (80.0-100.0) fL MCH (25.0-35.0) pg RDW (11.5-15.5) % Plt Count (150-450) k/uL APTT (22.0-30.0) sec Fibrinogen 610 H (200-500) mg/dL ABG pO2 (83-108) mmHg ABG Total CO2 (19-24) mmol/L ABG O2 Saturation (94-97) % Hemoglobin (13.0-17.5) gm/dL Sodium 135 L (137-145) mmol/L Chloride 110 H (98-107) mmol/L Glucose 103 H (74-99) mg/dL POC Glucose (mg/dL) (70-110) mg/dL Calcium 8.0 L (8.4-10.2) mg/dL Lactate Dehydrogenase 475 H (120-246) U/L Total Protein 5.4 L (6.3-8.2) g/dL Albumin 2.6 L (3.5-5.0) g/dL Urine Protein (Negative) Urine Blood (Negative) Ur Leukocyte Esterase (Negative) Urine RBC (0-5) /hpf Urine WBC (0-5) /hpf Urine Mucus (None) /hpf 07/17/24 07/17/24 Range/Units 04:09 04:45 RBC 4.08 L (4.30-5.90) m/uL Hgb 8.7 L (13.0-17.5) gm/dL Hct 27.6 L (39.0-53.0) % MCV 67.6 L (80.0-100.0) fL MCH 21.2 L (25.0-35.0) pg RDW 17.1 H (11.5-15.5) % Plt Count 97 L (150-450) k/uL APTT (22.0-30.0) sec Fibrinogen (200-500) mg/dL ABG pO2 112 H (83-108) mmHg ABG Total CO2 26 H (19-24) mmol/L ABG O2 Saturation 98.8 H (94-97) % Hemoglobin 8.1 L (13.0-17.5) gm/dL Sodium (137-145) mmol/L Chloride (98-107) mmol/L Glucose (74-99) mg/dL POC Glucose (mg/dL) (70-110) mg/dL Calcium (8.4-10.2) mg/dL Lactate Dehydrogenase (120-246) U/L Total Protein (6.3-8.2) g/dL Albumin (3.5-5.0) g/dL Urine Protein (Negative) Urine Blood (Negative) Ur Leukocyte Esterase (Negative) Urine RBC (0-5) /hpf Urine WBC (0-5) /hpf Urine Mucus (None) /hpf Microbiology - Last 24 Hours (Table) 07/11/24 04:47 Blood Culture - Final Blood Assessment and Plan Plan: Outside the hospital cardiac arrest requiring 5 minutes of CPR prior to return of spontaneous circulation, rule out underlying anoxic encephalopathy. Encephalopathy, rule out anoxic encephalopathy the patient remains on propofol and fentanyl. Sedation holiday done earlier failed and there is probably some right-sided weakness noted on examination. CAT scan of the brain showed left parietal hypoattenuation, suspect a stroke evaluation. Repeat CAT scan of the brain done yesterday on 07/16/2024 showed no acute intracranial process. Patient remains sedated on a combination of propofol and fentanyl. Acute non-ST segment elevation myocardial infarction, status post cardiac catheterization indicating triple-vessel coronary artery disease, status post cardiac catheterization and stenting x 2 of the mid and proximal LAD and the patient is currently on a combination of aspirin and Brilinta and the Impella has been discontinued Severe ischemic cardiomyopathy with an ejection fraction of 25 to 30% and segmental wall motion abnormalities. Limited echocardiogram shows impaired LV function and estimated ejection fraction is at 40% Cardiogenic shock improved and the patient is hemodynamically stable and Impella has been discontinued Acute hypoxemic respiratory failure secondary to above requiring intubation and mechanical ventilatory support. Chest x-ray is consistent with CHF and bilateral pleural effusions. Severe metabolic acidosis at time of admission, improvement in acid-base status Acute kidney injury, recovered and the patient is producing adequate amount of urine output Recent discharge in May 2024 for atypical chest pain and COVID-19 infec tion/pneumonitis Rheumatoid arthritis Hypertension Benign prostatic hyperplasia Thrombocytopenia, platelet count is improving Anemia, multifactorial, acute, and hemoglobin stable for now. Sinus bradycardia Plan: Continue mechanical ventilation with a pressure control of 20, expiratory time o f 0.8, PEEP of 5, FiO2 of 40% no change in the mechanical ventilator for today. Give the patient sedation holiday and assess mental status change. O follow-up CAT scan of the brain was noted Neurology consultation Cardiac catheterization completed and patient underwent stenting of the LAD x 2 Keep the Impella for hemodynamic support pressure urine output and cardiac output. Continue aspirin and Brilinta Off nitroglycerin drip Monitor platelet count Patient is currently off pressors Continue tube feedings for nutritional support currently vital AF 1.2 Start IV Lasix 20 mg IV every 12 hours We will continue to follow and make further recommendations based on his clinical status Condition remains critical. Prognosis poor based on above-mentioned comorbidities. Will continue to follow along with the rest of the consultants. His evaluation was done more than 30 minutes. Time with Patient: Greater than 30
[2024-07-17] MEDS: DEXMEDETOMIDINE/0.9% NACL(PMX) 400 MCG in EMPTY BAG 1 BAG IV SCH (16:20)
--- NOTE | 2024-07-17 16:36 | P.PN ---
Subjective Progress Note Date: 07/17/24 Hospital course: Patient is a 78-year-old male with PMH of rheumatoid arthritis, hypertension and BPH was brought to the emergency department via EMS for cardiopulmonary arrest. His initial laboratory evaluation shows WBC of 19.7, hemoglobin 14.6, MCV of 74.8, platelet count 2 8, sodium 138, potassium 4.3, chloride 117, bicarb 13, BUN 18, creatinine 1.8. His cardiac troponin has been trending upward from 0.588--->14.9. Patient was recently seen at the hospital for the complaint of chest pain. Patient was diagnosed with type II ND slightly with elevated troponins likely secondary to COVID-19 pneumonitis. Echocardiogram showed LVEF of 55% and moderate pulmonary hypertension. Viral panel negative. Chest x-ray interpreted independently shows diffuse patchy infiltrate with groundglass opacities and bilateral pleural effusion. Brain CT shows no acute intracranial process. Chest CTA is negative for pulmonary embolism and patchy opacities throughout both lungs with small bilateral pleural effusions. EKG interpreted independently shows sinus bradycardia with a regular branch block. T wave inversions in anteroseptal and lateral leads. Echocardiogram shows LVEF of 25 to 30% and ischemic cardiomyopathy with apical hypokinesis. Repeat brain CT on 07/15/2024 shows concern for suspected left parietal subacute CVA compared to previous brain CT. CAT scan of the brain was repeated again on 07/17/2024 which at this time shows no acute intracranial process. Patient was taken to the [facility] on 06/16/2024 with a successful stenting to mid and proximal LAD. Impella was taken out. Patient was able to maintain his mean arterial pressure without Impella and pressors. Subjective: Patient seen and examined today. Patient he is off pressors and Impella. Propofol at 15 mcg/kg/min and fentanyl at 0.5 mcg/kg/h. Tube feeds at target 35. Urine output is good. Objective: Vital signs reviewed General: intubated, sedated HEENT: normocephalic, atraumatic, no tracheal deviation Respiratory: symmetric chest rise, no cyanosis, ventilator dependent CVS: perfusing all extremities, no distal gangrene, trace pitting edema GI: soft, ND : no SPT, no CVAT, heard is present Neuro: sedated Pertinent Labs: WBC 5.5, hemoglobin 8.7, MCV 27.6, platelet count 97, sodium 135, potassium 4.2 Pertinent imaging: Chest x-ray independently interpreted continues to demonstrate bilateral pleural effusions similar to yesterday Assessment/Plan: Patient is a 78-year-old male with PMH of rheumatoid arthritis, hypertension and BPH was brought to the emergency department via EMS for cardiopulmonary arrest who is currently intubated and admitted to the medical ICU. Currently in cardiogenic shock on Impella support. 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 Aspirin 81 mg p.o. daily and Brilinta 90 mg p.o. twice daily Atorvastatin 40 mg p.o. at bedtime Consider adding beta-kaela once patient stabilized Morphine 2 mg IV every 2 hour as needed for chest pain Continue cardiac monitoring Lipid panel done on 05/14/2024 TSH 7.63, free T4 0.8 Pulmonology consulted; note reviewed; IV furosemide 20 mg every 12 hours Continue with holiday sedation and weaning trials Discussed management with neurology, wean sedation, likely had watershed infarct due to cardiac arrest DVT prophylaxis with Lovenox subcu, monitor for bleeding #Bandemia, likely reactive to above, resolved Low suspicion for underlying infection at this time Blood culture x 2, results pending UA negative for infection Procalcitonin 0.24 is negative Continue monitor for signs and symptoms for occult infection Repeat CBC #Normocytic anemia secondary to above Hemoglobin 8.7, LDH 511 Continue to monitor CBC Consider transfusion if hemoglobin less than 8 No active bleeding #Anion gap metabolic acidosis secondary to lactic acid, resolved #Euthyroid sick syndrome secondary above TSH 7.63, free T4 - 0.8 #Hypermagnesemia, resolved Mag 2.0 Continue monitor magnesium level Chronic conditions: BPH: Resume Flomax Hypertension: Hold nifedipine DVT prophylaxis: Lovenox 40 mg subcu daily CODE STATUS: Full code Anticipated discharge place: Pending clinical course I have seen and evaluated the patient today. Discussed with the resident and agree with the residents finding and plan as documented in the resident's note. Changes highlighted in blue font. Objective - Vital Signs Vital signs: Vital Signs Temp 99.3 F 07/17/24 13:00 Pulse 60 07/17/24 14:00 Resp 10 L 07/17/24 14:00 BP 133/54 07/17/24 13:00 Pulse Ox 98 07/17/24 14:00 FiO2 40 07/17/24 13:00 Intake & Output 07/16/24 07/17/24 07/17/24 18:59 06:59 18:59 Intake Total 444.413 3101.136 906.197 Output Total 062 672 4809 Balance 979.850 6010.136 -858.803 Weight 110 kg 110 kg Intake: IV 582.0 891 348 Sodium Bicarb (1 Meq/ml) 152.0 12.5 ml In Dextrose 5% in Water 500 ml @ Per Protocol IV DIRECTED [facility] Rx#:[id number] Sodium Chloride 0.9% 1, 825 300 000 ml In Empty Bag 1 bag @ 75 mls/hr IV .[id number] [facility] Rx#:[id number] a line x 2 60 66 48 Intake, IV Titration 97.187 555.136 158.197 Amount Heparin Sod,Pork in 0.45% 208.774 NaCl 25,000 unit In 0.45 % NaCl 1 250ml.bag @ 11. 023 UNITS/KG/HR 10 mls/hr IV .Q24H [facility] Rx#: [id number] Nitroglycerin-D5w Pmx 50 26.425 75.875 mg In Dextrose/Water 1 250ml.bag @ 5 MCG/MIN 1.5 mls/hr IV .Q24H [facility] Rx#: [id number] fentaNYL (PF). 1,000 mcg 0 48.989 In Sodium Chloride 0.9% 80 ml @ 0.5 MCG/KG/HR 4. 536 mls/hr IV .[id number] [facility] Rx#:[id number] propofoL 1,000 mg In 70.762 270.487 109.208 Empty Bag 1 bag @ 15 MCG/ KG/MIN 8.165 mls/hr IV . [id number] [facility] Rx#:[id number] Tube Feeding 280 280 Other 60 60 120 Output: Urine 606 485 7377 Other: Voiding Method Indwelling Catheter Indwelling Catheter Indwelling Catheter ABP, PAP, CO, CI - Last Documented Arterial Blood Pressure 154/51 - Labs CBC & Chem 7: 07/17/24 04:09 07/17/24 04:09 Labs: Abnormal Lab Results - Last 24 Hours (Table) 07/17/24 07/17/24 07/17/24 Range/Units 04:09 04:09 04:45 RBC 4.08 L (4.30-5.90) m/uL Hgb 8.7 L (13.0-17.5) gm/dL Hct 27.6 L (39.0-53.0) % MCV 67.6 L (80.0-100.0) fL MCH 21.2 L (25.0-35.0) pg RDW 17.1 H (11.5-15.5) % Plt Count 97 L (150-450) k/uL ABG pO2 112 H (83-108) mmHg ABG Total CO2 26 H (19-24) mmol/L ABG O2 Saturation 98.8 H (94-97) % Hemoglobin 8.1 L (13.0-17.5) gm/dL Sodium 135 L (137-145) mmol/L Chloride 110 H (98-107) mmol/L Glucose 103 H (74-99) mg/dL POC Glucose (mg/dL) (70-110) mg/dL Calcium 8.0 L (8.4-10.2) mg/dL Total Protein 5.4 L (6.3-8.2) g/dL Albumin 2.6 L (3.5-5.0) g/dL 07/17/24 Range/Units 11:35 RBC (4.30-5.90) m/uL Hgb (13.0-17.5) gm/dL Hct (39.0-53.0) % MCV (80.0-100.0) fL MCH (25.0-35.0) pg RDW (11.5-15.5) % Plt Count (150-450) k/uL ABG pO2 (83-108) mmHg ABG Total CO2 (19-24) mmol/L ABG O2 Saturation (94-97) % Hemoglobin (13.0-17.5) gm/dL Sodium (137-145) mmol/L Chloride (98-107) mmol/L Glucose (74-99) mg/dL POC Glucose (mg/dL) 121 H (70-110) mg/dL Calcium (8.4-10.2) mg/dL Total Protein (6.3-8.2) g/dL Albumin (3.5-5.0) g/dL Microbiology - Last 24 Hours (Table) 07/11/24 04:47 Blood Culture - Final Blood
[2024-07-17 17:03] LABS: ABG Base Excess 0.9 mmol/L; ABG HCO3 25 mmol/L (21-25); ABG Oxygen Saturation 98.9 % (94-97); ABG PCO2 39 mmHg (35-45); ABG PH 7.42 (7.35-7.45); ABG PO2 112 mmHg (83-108); ABG TCO2 27 mmol/L (19-24); Allen Test Performed? Yes
[2024-07-17 19:08] LABS: Glucose,Whole Blood 124 mg/dL (70-110)
[2024-07-17 23:34] LABS: Glucose,Whole Blood 113 mg/dL (70-110)
[2024-07-18 05:32] LABS: Anisocytosis Slight; Basophils % (A) 0 %; Eosinophils # (A) 0.3 k/uL (0-0.7); Eosinophils % (A) 4 %; HGB 8.7 gm/dL (13.0-17.5); Hypochromasia Moderate; Lymphocytes # (A) 1.3 k/uL (1.0-4.8); Lymphocytes % (A) 21 %; MCH 21.1 pg (25.0-35.0); MCV 67.9 fL (80.0-100.0); Mean Platelet Volume 9.4; Microcytosis Marked; Monocytes # (A) 0.5 k/uL (0-1.0); Monocytes % (A) 7 %; Neutrophils % (A) 64 %; Platelet Count 107 k/uL (150-450); Poikilocytosis Slight; RBC 4.13 m/uL (4.30-5.90); RDW 17.5 % (11.5-15.5); WBC 6.3 k/uL (3.8-10.6)
[2024-07-18 05:41] LABS: African American GFR (CKD) >90 (>60 ml/min/1.73 sqM); Anion Gap 3 mmol/L; Blood Urea Nitrogen 19 mg/dL (9-20); Calcium 8.1 mg/dL (8.4-10.2); Carbon Dioxide 25 mmol/L (22-30); Chloride 111 mmol/L (98-107); Glucose 89 mg/dL (74-99); Magnesium 1.8 mg/dL (1.6-2.3); Non-African American GFR(CKD) 89 (>60 ml/min/1.73 sqM); Potassium 3.5 mmol/L (3.5-5.1); Sodium 139 mmol/L (137-145)
[2024-07-18] MEDS: MAGNESIUM SULFATE-D5W PMX 1 GM in DEXTROSE/WATER 1 100ML.BAG IVPB ONE (08:46)
[2024-07-18] MEDS: POTASSIUM CHLORIDE 20 MEQ in WATER FOR INJECTION 1 100ML.BAG IVPB SCH (08:46)
[2024-07-18] MEDS ORDERED: ARTIFICIAL TEARS-HYPROMELLOSE DROPS 15 ML BTL BOTH EYES PRN (09:44)
--- NOTE | 2024-07-18 10:38 | P.PN ---
Subjective Progress Note Date: 07/18/24 Hospital course: Patient is a 78-year-old male with PMH of rheumatoid arthritis, hypertension and BPH was brought to the emergency department via EMS for cardiopulmonary arrest. His initial laboratory evaluation shows WBC of 19.7, hemoglobin 14.6, MCV of 74.8, platelet count 2 8, sodium 138, potassium 4.3, chloride 117, bicarb 13, BUN 18, creatinine 1.8. His cardiac troponin has been trending upward from 0.588--->14.9. Patient was recently seen at the hospital for the complaint of chest pain. Patient was diagnosed with type II MD slightly with elevated troponins likely secondary to COVID-19 pneumonitis. Echocardiogram showed LVEF of 55% and moderate pulmonary hypertension. Viral panel negative. Chest x-ray interpreted independently shows diffuse patchy infiltrate with groundglass opacities and bilateral pleural effusion. Brain CT shows no acute intracranial process. Chest CTA is negative for pulmonary embolism and patchy opacities throughout both lungs with small bilateral pleural effusions. EKG interpreted independently shows sinus bradycardia with a regular branch block. T wave inversions in anteroseptal and lateral leads. Echocardiogram shows LVEF of 25 to 30% and ischemic cardiomyopathy with apical hypokinesis. Repeat brain CT on 07/15/2024 shows concern for suspected left parietal subacute CVA compared to previous brain CT. CAT scan of the brain was repeated again on 07/17/2024 which at this time shows no acute intracranial process. Patient was taken to the [facility] on 06/16/2024 with a successful stenting to mid and proximal LAD. Impella was taken out. Patient was extubated and was able to maintain his mean arterial pressure without Impella and pressors. Subjective: Patient seen and examined today. No acute events overnight. Patient is extubated. On 2 L of oxygen via nasal cannula. Urine output is good. Objective: Vital signs reviewed General: Not in acute distress, HEENT: normocephalic, atraumatic, no tracheal deviation Respiratory: symmetric chest rise, no cyanosis, extubated, on 2 L of oxygen via nasal cannul CVS: perfusing all extremities, no distal gangrene, trace pitting edema GI: soft, ND : no SPT, no CVAT, heard is present MSK: 5 out of 5 motor strength in LLE and LUE; 1 out of 5 motor strength in RUE and 2 out of 5 motor strength in RLE Neuro: AO x 1, calm, CN 1-10 grossly intact Pertinent Labs: WBC 6.3, hemoglobin 8.7, platelet count 107, sodium 139, potassium 3.5, chloride under 11, bicarb 25, creatinine 0.75, calcium 8.1, magn esium 1.8 Pertinent imaging: No new imaging Assessment/Plan: Patient is a 78-year-old male with PMH of rheumatoid arthritis, hypertension and BPH was brought to the emergency department via EMS for cardiogenic shock. 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 Continue with dual antiplatelet therapy: Aspirin 81 mg p.o. daily and Brilinta 90 mg p.o. twice daily Atorvastatin 40 mg p.o. at bedtime with target goal of less than 70 mg/dL GDMT: Added lisinopril 10 mg p.o. daily and Aldactone 25 mg p.o. daily, consider adding beta-kaela and SGLT2 inhibitor Morphine 2 mg IV every 2 hour as needed for chest pain Continue cardiac monitoring Lipid panel done on 05/14/2024: LDL 63.1, HDL 36.90 Pulmonology consulted; note reviewed; IV furosemide 20 mg every 12 hours Discussed management with neurology, likely had watershed infarct due to cardiac arrest Consult physical therapy for physical rehabilitation Consult speech therapy for swallowing evaluation; encourage oral intake if speech evaluation is normal DVT prophylaxis with Lovenox subcu, monitor for bleeding #Bandemia, likely reactive to above, resolved Low suspicion for underlying infection at this time Blood culture x 2, results pending UA negative for infection Procalcitonin 0.24 is negative Continue monitor for signs and symptoms for occult infection Repeat CBC #Normocytic anemia secondary to above Hemoglobin 8.7 Continue to monitor CBC Consider transfusion if hemoglobin less than 8 No active bleeding #Anion gap metabolic acidosis secondary to lactic acid, resolved #Euthyroid sick syndrome secondary above TSH 7.63, free T4 - 0.8 #Hypermagnesemia, resolved Mag 2.0 Continue monitor magnesium level Chronic conditions: BPH: Resume Flomax Hypertension: Hold nifedipine DVT prophylaxis: Lovenox 40 mg subcu daily CODE STATUS: Full code Anticipated discharge place: Pending clinical course: I have seen and evaluated the patient today. Discussed with the resident and agree with the residents finding and plan as documented in the resident's note. Changes highlighted in blue font. Objective - Vital Signs Vital signs: Vital Signs Temp 97.8 F 07/18/24 08:00 Pulse 65 07/18/24 10:00 Resp 23 07/18/24 10:00 BP 118/49 07/18/24 10:00 Pulse Ox 97 07/18/24 10:00 FiO2 40 07/17/24 17:04 Intake & Output 07/17/24 07/18/24 07/18/24 18:59 06:59 18:59 Intake Total 1128.363 176.417 252 Output Total 1885 1455 495 Balance -756.637 -1278.583 -243 Weight 110 kg 103.6 kg Intake: IV 432 159 252 Magnesium Sulfate-D5w Pmx 100 1 gm In Dextrose/Water 1 100ml.bag @ 100 mls/hr IVPB ONCE ONE Rx#: [id number] Potassium Chloride 20 meq 100 In Water For Injection 1 100ml.bag @ 50 mls/hr IVPB Q2H [facility] Rx#: [id number] Sodium Chloride 0.9% 1, 40 000 ml @ 20 mls/hr IV . Q24H [facility] Rx#:[id number] Sodium Chloride 0.9% 1, 360 90 000 ml In Empty Bag 1 bag @ 75 mls/hr IV .[id number] [facility] Rx#:[id number] a line x 2 72 69 12 Intake, IV Titration 166.363 17.417 Amount Dexmedetomidine/0.9% NaCl 17.417 (Pmx) 400 mcg In Empty Bag 1 bag @ 0.2 MCG/KG/HR 5.5 mls/hr IV .[id number] [facility] Rx#:[id number] fentaNYL (PF). 1,000 mcg 48.989 In Sodium Chloride 0.9% 80 ml @ 0.5 MCG/KG/HR 4. 536 mls/hr IV .Q22H3M [facility] Rx#:[id number] propofoL 1,000 mg In 117.374 Empty Bag 1 bag @ 15 MCG/ KG/MIN 8.165 mls/hr IV . [id number] [facility] Rx#:[id number] Tube Feeding 380 Other 150 Output: Urine 1885 1455 495 Other: Voiding Method Indwelling Catheter Indwelling Catheter ABP, PAP, CO, CI - Last Documented Arterial Blood Pressure 139/39 - Labs CBC & Chem 7: 07/18/24 05:20 07/18/24 05:20 Labs: Abnormal Lab Results - Last 24 Hours (Table) 07/17/24 07/17/24 07/17/24 Range/Units 11:35 17:00 19:07 RBC (4.30-5.90) m/uL Hgb (13.0-17.5) gm/dL Hct (39.0-53.0) % MCV (80.0-100.0) fL MCH (25.0-35.0) pg RDW (11.5-15.5) % Plt Count (150-450) k/uL ABG pO2 112 H (83-108) mmHg ABG Total CO2 27 H (19-24) mmol/L ABG O2 Saturation 98.9 H (94-97) % Hemoglobin 9.1 L (13.0-17.5) gm/dL Chloride (98-107) mmol/L POC Glucose (mg/dL) 121 H 124 H (70-110) mg/dL Calcium (8.4-10.2) mg/dL 07/17/24 07/18/24 07/18/24 Range/Units 23:33 05:20 05:20 RBC 4.13 L (4.30-5.90) m/uL Hgb 8.7 L (13.0-17.5) gm/dL Hct 28.0 L (39.0-53.0) % MCV 67.9 L (80.0-100.0) fL MCH 21.1 L (25.0-35.0) pg RDW 17.5 H (11.5-15.5) % Plt Count 107 L (150-450) k/uL ABG pO2 (83-108) mmHg ABG Total CO2 (19-24) mmol/L ABG O2 Saturation (94-97) % Hemoglobin (13.0-17.5) gm/dL Chloride 111 H (98-107) mmol/L POC Glucose (mg/dL) 113 H (70-110) mg/dL Calcium 8.1 L (8.4-10.2) mg/dL Microbiology - Last 24 Hours (Table) 07/16/24 09:33 Blood Culture - Preliminary Blood
[2024-07-18] MEDS: NITROGLYCERIN SL TABS 0.4 MG TAB SUBLINGUAL PRN (11:29)
[2024-07-18] MEDS: lisinopriL 10 MG TAB PO SCH (11:49)
[2024-07-18] MEDS: SPIRONOLACTONE 25 MG TAB PO SCH (11:49)
[2024-07-18] MEDS: FUROSEMIDE 10 MG/ML 4 ML VIAL IV STA ×2 (11:50→13:03)
--- NOTE | 2024-07-18 11:54 | XR ---
EXAMINATION TYPE: XR chest 1V portable DATE OF EXAM: 07/18/2024 COMPARISON: 07/17/2024 HISTORY: Shortness of breath TECHNIQUE: Single frontal view of the chest is obtained. FINDINGS: ET tube and NG tube in the interval. The left-sided PICC line is unchanged in position. The pulmonary vascular congestion, bilateral pleural effusions and lower lobe infiltrates are unchang ed. There is no pneumothorax IMPRESSION: Acute cardiopulmonary disease unchanged compared to previous. NG tube and ET tube remove d in the interval. [facility], , 07/18/2024 11:52 AM
[2024-07-18] MEDS: QUEtiapine 100 MG TAB PO SCH (12:21)
[2024-07-18] MEDS: CISATRACURIUM 2 MG/ML 5 ML VIAL IV ONE (12:26)
[2024-07-18] MEDS: PROPOFOL 10 MG/ML 20 ML VIAL IV ONE (12:30)
--- NOTE | 2024-07-18 12:41 | XR ---
EXAMINATION TYPE: XR chest 1V portable DATE OF EXAM: 07/18/2024 COMPARISON: 07/18/2024 HISTORY: Post intubation TECHNIQUE: Single frontal view of the chest is obtained. FINDINGS: There is an ET tube 5.7 cm above the santino. There is moderate cardiomegaly. There are diffuse partially consolidative opacities in both lungs, ri ght greater than left. There are small pleural effusions. There is no pneumothorax. There is an ET tube within the stomach. The osseous structures are intact IMPRESSION: 1. ET tube 5.7 cm above the santino. 2. Marked acute cardiopulmonary disease with mild interval worsening with increasing airspace opacifi cation in both lungs. Findings likely indicating diffuse pulmonary edema or pneumonia. [facility], Workstation: [facility]INA 07/18/2024 12:38 PM
[2024-07-18] MEDS: CEFEPIME 1 GM in SODIUM CHLORIDE 0.9% 50 ML IVPB STA (12:55)
--- NOTE | 2024-07-18 12:56 | P.PN ---
Subjective Progress Note Date: 07/18/24 [facility] The patient is a 78-year-old gentleman with a past medical history significant for hypertension and rheumatoid arthritis and recently diagnosed of COVID-19 infection all this information was obtained from the chart. Currently the patient is intubated and he is on mechanical ventilation and history was taken from the chart as well as from the nurse taking care of the patient. The patient was in his usual state of health till earlier today when he was doing some work in his backyard and he was experiencing symptoms of chest discomfort and shortness of breath. Subsequent ambulance was called and upon arrival the patient collapsed and he was pulseless. CPR initiated for 5 minutes and brought to normal sinus mechanism. Subsequently patient was intubated and placed on mechanical ventilation. He was hypotensive and he continues to be hypotensive requiring norepinephrine. He was seen in intensive care unit. Currently he is still hemodynamically unstable and requiring norepinephrine. He is in sinus mechanism. I did review the EKG and that showed sinus mechanism with deep T wave inversion in the anterolateral leads concerning for severe underlying coronary artery disease versus stress-induced cardiomyopathy. At the same time the patient was admitted to the hospital last month with a chest discomfort in the setting of COVID with abnormal cardiac enzymes and he was treated medically at that point. Please note that the patient was experiencing chest discomfort and shortness of breath earlier today. No history of coronary artery disease or congestive heart failure or cardiac arrhythmia. The first set of troponin came in to be abnormal. The physical examination is remarkable for patient intubated on mechanical ventilation hemodynamically unstable with regular rate and rhythm and systolic murmur at the apical area and diminished breathing sounds bilaterally. July 12, 2024 The patient was seen and evaluated this morning. He continues to be intubated on mechanical ventilation and continues to be also on vasopressors. He is maintaining normal sinus mechanism. The plan is to pursue with a heart catheterization. The physical examination is remarkable for regular rhythm with a distant heart sounds and diminished breathing sounds bilaterally and no edema was noted in the lower extremities. July 13, 2024 Patient is seen and examined at bedside this a.m. He continues to be on ventilator support and Impella support. CVP 10 mmHg, MAP 65 mmHg, SBP 110, DBP 50 mmHg. P7 on Impella, off pressors Good urine output Hemoglobin 10.8, platelets 123, mild hemolysis noticed, LDH is elevated, fibrinogen is elevated but in range. July 14, 2024 Patient is seen and examined at bedside this a.m. He continues to be on ventilator support and Impella support. CVP 8 to 10 mmHg, MAP of 65 mmHg, SBP around 100 mmHg, DBP around 50 mmHg Last 9 was on high level. This morning he was on P7 Impella. Off pressors since yesterday afternoon. Continues to have good urine output Hemoglobin 9.9, platelets 106, fibrogenic 507, BUN 17, creatinine 0.8 We tried weaning to P4 levels. At P4 the [place] cardiac index was around 3.2. [employer] still less than 0.6. Patient was given sedation vacation and but neurological evaluation was not appropriate as sedation medication was not long enough. July 15, 2024 During sedation vacation and neurological evaluation patient was able to do some purposeful movement however the motor strength in right upper extremity was lower as compared to her extremities. Due to the focal nature we performed a CT head which showed some concerns of possible left parietal lobe subacute CVA. Case was discussed with neurology who recommended to continue anticoagulation for now and consideration of higher benefit over risk. At P4, SBP around 120s, DBP around 40s, MAP around 65, Cardiac index 3.1 L/min/m. July 16, 2024 Patient is seen and examined at bedside this a.m. Last night patient had brief hematuria. For this we stopped heparin temporarily and patient's urine cleared up. Patient is back on IV heparin drip with no further hematuria. Patient is maintaining good blood pressure at P4 Impella support. Adequate peripheral p erfusion with good urine output. Jul 17 2024 Patient was seen and examined at bedside this a.m. Patient had PCI of LAD done yesterday by Dr. Nobles. Impella was removed. Hemodynamically stable. Good urine output. Still in positive fluid balance. Planning for a sedation vacation and weaning trial today. Chest x-ray shows bilateral pulmonary congestion. Hemoglobin platelets and kidney function are stable. July 18, 2024 Patient was seen and examined at bedside this a.m. Yesterday evening patient was extubated. Currently he is on BiPAP support. Today at the time of evaluation around 11 AM, he was in respiratory distress. His chest x-ray showed pulmonary congestion with evidence of consolidation in the right lower lung base. For this I gave him additional 40 mg IV Lasix, 1 dose of cefepime 1 g, obtain lactate and ABG levels, and started nitroglycerin drip for pulmonary edema and systolic blood pressure more than 200 mmHg. On exam Intubated and sedated, on ventilator support, ET tube in place, appropriate air entry in bilateral lung pineda S1-S2 audible, Impella device in place with murmur from Impella device appreciat ed. Arterial line in place, good pulses in bilateral upper and lower extremity 1+ pitting edema bilateral lower extremity Detailed neuroexam was not performed Assessment Out of the hospital cardiopulmonary arrest Ventilatory dependent respiratory failure s/p extubation 07/17/2024, currently on BiPAP support. 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 Multiple comorbid conditions Plan Give 1 dose of IV Lasix 40 mg IV antibiotic with cefepime 1 g, further need to be evaluated by ICU team and primary team. Discontinue lisinopril and and Aldactone. Start instead Entresto 24/26 mg twice daily. IV nitroglycerin drip for elevated blood pressure if SBP is more than 140 mmHg. Continue to hold beta-kaela at this time. On Saturday plan for limited echocardiogram and staged PCI of RCA/OM. Continue dual antiplatelet therapy, with aspirin and Brilinta. Continue Lipitor. Hold beta-kaela for now. Case was discussed with ICU attending. And the nursing staff. Supportive care and vent care as per the ICU team. Objective - Vital Signs Vital signs: Vital Signs Temp 97.8 F 07/18/24 08:00 Pulse 116 H 07/18/24 11:39 Resp 18 07/18/24 11:00 BP 142/60 07/18/24 11:00 Pulse Ox 94 L 07/18/24 11:00 FiO2 100 07/18/24 12:30 Intake & Output 07/17/24 07/18/24 07/18/24 18:59 06:59 18:59 Intake Total 1128.363 176.417 305 Output Total 1885 1455 745 Balance -756.637 -1278.583 -440 Weight 110 kg 103.6 kg Intake: IV 432 159 305 Magnesium Sulfate-D5w Pmx 100 1 gm In Dextrose/Water 1 100ml.bag @ 100 mls/hr IVPB ONCE ONE Rx#: [id number] Potassium Chloride 20 meq 150 In Water For Injection 1 100ml.bag @ 50 mls/hr IVPB Q2H [facility] Rx#: [id number] Sodium Chloride 0.9% 1, 40 000 ml @ 20 mls/hr IV . Q24H [facility] Rx#:[id number] Sodium Chloride 0.9% 1, 360 90 000 ml In Empty Bag 1 bag @ 75 mls/hr IV .[id number] [facility] Rx#:[id number] a line x 2 72 69 15 Intake, IV Titration 166.363 17.417 Amount Dexmedetomidine/0.9% NaCl 17.417 (Pmx) 400 mcg In Empty Bag 1 bag @ 0.2 MCG/KG/HR 5.5 mls/hr IV .[id number] [facility] Rx#:[id number] fentaNYL (PF). 1,000 mcg 48.989 In Sodium Chloride 0.9% 80 ml @ 0.5 MCG/KG/HR 4. 536 mls/hr IV .[id number] [facility] Rx#:[id number] propofoL 1,000 mg In 117.374 Empty Bag 1 bag @ 15 MCG/ KG/MIN 8.165 mls/hr IV . [id number] [facility] Rx#:[id number] Tube Feeding 380 Other 150 Output: Urine 1885 1455 745 Other: Voiding Method Indwelling Catheter Indwelling Catheter Indwelling Catheter ABP, PAP, CO, CI - Last Documented Arterial Blood Pressure 139/39 - Labs CBC & Chem 7: 07/18/24 05:20 07/18/24 05:20 Labs: Abnormal Lab Results - Last 24 Hours (Table) 07/17/24 07/17/24 07/17/24 Range/Units 17:00 19:07 23:33 RBC (4.30-5.90) m/uL Hgb (13.0-17.5) gm/dL Hct (39.0-53.0) % MCV (80.0-100.0) fL MCH (25.0-35.0) pg RDW (11.5-15.5) % Plt Count (150-450) k/uL ABG pO2 112 H (83-108) mmHg ABG Total CO2 27 H (19-24) mmol/L ABG O2 Saturation 98.9 H (94-97) % Hemoglobin 9.1 L (13.0-17.5) gm/dL Chloride (98-107) mmol/L POC Glucose (mg/dL) 124 H 113 H (70-110) mg/dL Calcium (8.4-10.2) mg/dL 07/18/24 07/18/24 Range/Units 05:20 05:20 RBC 4.13 L (4.30-5.90) m/uL Hgb 8.7 L (13.0-17.5) gm/dL Hct 28.0 L (39.0-53.0) % MCV 67.9 L (80.0-100.0) fL MCH 21.1 L (25.0-35.0) pg RDW 17.5 H (11.5-15.5) % Plt Count 107 L (150-450) k/uL ABG pO2 (83-108) mmHg ABG Total CO2 (19-24) mmol/L ABG O2 Saturation (94-97) % Hemoglobin (13.0-17.5) gm/dL Chloride 111 H (98-107) mmol/L POC Glucose (mg/dL) (70-110) mg/dL Calcium 8.1 L (8.4-10.2) mg/dL Microbiology - Last 24 Hours (Table) 07/16/24 09:33 Blood Culture - Preliminary Blood
[2024-07-18 13:13] LABS: ABG Base Excess -5.2 mmol/L; ABG HCO3 24 mmol/L (21-25); ABG Oxygen Saturation 98.6 % (94-97); ABG PCO2 66 mmHg (35-45); ABG PO2 151 mmHg (83-108); ABG TCO2 26 mmol/L (19-24); Allen Test Performed? Yes
[2024-07-18 13:17] LABS: ABG PH 7.17 (7.35-7.45)
[2024-07-18] MEDS: SACUBITRIL/VALSARTAN 24 MG-26 MG TABLET PO SCH (13:24)
[2024-07-18 13:34] LABS: Glucose,Whole Blood 128 mg/dL (70-110)
--- NOTE | 2024-07-18 13:59 | P.PN ---
Subjective Progress Note Date: 07/18/24 This is a 78-year-old male patient with a history of rheumatoid arthritis, hypertension, BPH. He was recently here in May for atypical chest pain and COVID-19 pneumonitis. Discharged home on May 15, 2024. Since that time he had been doing well. Pain the patient was having a 2 to 3-day history of worsening shortness of breath. He was active yesterday and cleaning out his garage and did complain of shortness of breath and some chest discomfort. He developed worsening shortness of breath throughout the night. EMS was called and the arrival the patient had collapse. He was pulseless and CPR was started taking approximately 5 minutes until return of spontaneous circulation. He was brought in and being assisted with a bag valve mask device and a pulse ox of 74 and then intubated in the emergency department. He was brought up to the intensive care unit. He is currently intubated, sedated on the mechanical ventilator at a rate of 24, tidal volume 450, FiO2 90% and a PEEP of 10. Blood gases had revealed a PaO2 of 70, pCO2 of 62 and a pH of 7.14 on 100% FiO2. He is on fentanyl at 1.5 mcg/kg/h. He is currently on a heparin drip per weight- based protocol. Norepinephrine at 13.5 mcg/min. Propofol at 30 mcg/kg/min. CT scan of the brain revealed no acute findings. CT angiogram revealed no evidence of pulmonary embolism. There is small bilateral effusions. Some patchy airspace opacity/consolidation throughout both lungs. Mild groundglass opacities. White count 19.7. Hemoglobin 14.6. Platelets 208. Sodium 138. Potassium 4.3. Bicarb 13. BUN 18. Creatinine 1.13. Glucose 313. Troponin 0.588. proBNP 2770. TSH 7.36. Viral screen is negative. The patient is seen today July 12, 2024 in follow-up in the intensive care unit. He remains intubated sedated on the mechanical ventilator. Currently in assist-control mode with a rate of 30, tidal volume 450, FiO2 40% and a PEEP of 10. Morning blood gases revealed a PaO2 of 163, pCO2 of 26 and a pH of 7.49 and 50% FiO2. The PEEP will be decreased to 5. He is currently on cefazolin. Remains on bronchodilators. He is continued on a heparin drip per weight-based protocol. Norepinephrine at 0.03 mcg/kg/min. Propofol at 35 mcg/kg/min. Fentanyl drip at 1.25 mcg/kg/h. White count 9.6. Hemoglobin 11.4. Platelets 166. Sodium 136. Potassium 3.9. Bicarb 18. BUN 29. Creatinine 1.47. Glucose 114. Continue tube feedings of vital AF at a rate of 10 with a goal of 57. Will be on hold for cardiac catheterization today 07/13/2024, the patient is being seen for a follow-up. The patient remains intubated on the mechanical ventilator. He requires mechanical support for his cardiogenic shock postcardiac arrest and the patient is an Impella with a P7 support and a 3.1 L/min of augmentation. The patient remains on sedatives and the patient is currently on propofol the patient is 0.7. On the mechanical ventilator at a rate of 30, tidal volume of 450, FiO2 40% with PEEP of 5. Blood gas showed pH of 7.46 with a pCO2 of 27 and pO2 of 97. Chest x-ray shows cardiomegaly without any acute abnormalities. Orotracheal tubes are in good perfusion. The patient is currently on KVO IV fluids. The patient is on no pressors and the patient was taken off norepinephrine and is producing adequate amount of urine output in the order of 50 cc an hour. He remains on IV heparin. Creatinine is improved and the patient's creatinine peaked at 1.47 and currently is down to 1.08. He has a left subclavian triple-lumen catheter in place. Vocational Rehabilitation Counselor on the case and the patient underwent a cardiac catheterization on 07/12/2024 and the patient was found to have extremely calcified right and left coronary system with evidence of triple-vessel coronary artery disease and severely elevated left ventricular end-diastolic pressure. The white cell count at 7.9 with a hemoglobin 10.8 and a platelet count of 123. Sodium levels at 135, bicarbonate 18, BUN 27 with a creatinine of 1.08. LDH level is at 984. The echocardiogram was completed and the patient was found to have severe impairment of the LV function with an ejection fraction of 25 to 30%. There is also severe cardiomyopathy with wall motion abnormalities involving the apical area that was quite hypokinetic. The patient remains on aspirin. The patient remains on statins and the patient is currently on Lipitor 40 mg p.o. daily. Remains on IV heparin. He is also on vital AF for enteral feeding and nutritional support. Vocational Rehabilitation Counselor on the case. Cardiothoracic surgery was also involved in his care. The patient was deemed a high surgical risk for coronary intervention and bypass. On 07/14/2024, the patient is being seen for a follow-up. The patient remains sedated and the patient is currently on a combination of propofol running at 40 mcg/kg/min and fentanyl at 0.75 mcg/kg/h. The patient remains well sedated on m echanical ventilator and Impella for mechanical support for cardiogenic shock. This morning, the patient's Impella has been switched to P4 support with an augmentation of 2.5 L/min. The patient remains off pressors. Is producing adequate amount of urine output. Fluid balance is +1 L over the past 24 hours. He is hemolyzing and the hemoglobin is currently down to 9.9. Most recent LDH is at 946. At the same time, the patient remains on the mechanical ventilator. He is on assist-control mode with rate of 18, tidal volume of 450, FiO2 40% with a PEEP of 5. The blood gas from today shows a pH of 7.33 with a pCO2 of 41 and pO2 of 97. Chest x-ray is consistent with CHF/increased incisional markings consistent with heart failure. Orotracheal tube is in a good location. The patient has diffuse interstitial pattern bilaterally along with cardiomegaly and he has developed some small bilateral pleural effusions worse on the left. He remains on IV heparin. Remains on enteral feeding for additional support and the patient is currently on vital AF at rate of 35 cc an hour. IV fluids are currently at KVO. The patient's cardiac rhythm is sinus. The white cell count is 6.7 with a hemoglobin 9.9 and a platelet count of 106. The BUN is 17 with a creatinine of 0.8 and a sodium levels at 137, bicarb is at 22. 07/15/2024, the patient is being seen for a follow-up. The patient has signs of anoxic encephalopathy. The patient was given sedation holiday yesterday and he did not demonstrate adequate neurologic recovery. It was noted that he was not moving his right side effectively compared to the left. Based on that, the patient was placed back on propofol which is currently running at 40 mcg/kg/min. Attempts to wean off his Impella failed yesterday the patient became hypot ensive. The patient was given IV fluids and norepinephrine and the patient is currently off norepinephrine. He has Impella is augmenting at P4 level with 2.5 L/min augmentation. Fluid balance is +600 cc over the past 24 hours and the patient is producing urine output in the order of 30 to 40 cc an hour. No diuretics for now. Chest x-ray still showing CHF and bilateral pleural effusion right more than left. Remains on mechanical ventilator, assist-control mode with rate of 16, tidal volume of 450, FiO2 40% with a PEEP of 5. pH is 7.34 with a pCO2 of 43 and pO2 of 86. He is doing abdominal breathing and based on that, the patient was switched to pressure control mode of mechanical vent ilation. He is on vital AF at a rate of 35 cc an hour. The white cell count is 7.4, hemoglobin 9.6, his platelet count is at 116. LDH level is 625. Electrolytes are all within normal limits with a BUN of 14 and a creatinine of 0.7. Noted the patient's platelet count has dropped during this current admission and the patient remains on IV heparin. A limited echocardiogram was done yesterday and the patient was found to have impaired LV function with an estimated ejection fraction of around 40%. The patient also had segmental wall motion abnormalities. There was moderate LV dysfunction based on the echocardiogram. 07/16/2024, the patient is being seen for a follow-up. Events from yesterday was noted. Following a failed sedation holiday, the patient was noted to have some right-sided weakness. Based on that, a CAT scan of the brain was done and it showed a low-attenuation area in the left parietal lobe suspecting an evolving stroke. Another sedation holiday will be given today. Meanwhile, the patient will be kept on Impella pending cardiac catheterization and coronary interv ention as planned by cardiology. The patient is currently on a pressure control mode of mechanical ventilation, at rate of 18, pressure control of 20, FiO2 of 40% with a PEEP of 5. Blood gas showed a pH of 7.34 with pCO2 49 and pO2 of 92. Remains on IV heparin. He had some episodic hematuria but subsided. Fluid balance is -687 cc over the past 24 hours. Patient was receiving enteral feeding for nutritional support and currently it is on hold in preparation for cardiac catheterization. He was receiving vital AF at rate of 35 cc an hour. IV fluids are currently at KVO. The patient remains on IV Lasix. Meanwhile, the white cell count is 5.9, hemoglobin is 8.9 and a platelet count is 20. The patient's BUN is 15 with a creatinine of 0.7. Serum bicarb is at 28. Sodium levels at 137 and a potassium level is at 4.2. The patient remains on Impella with P4 support and 2.5 liters per minute of cardiac augmentation. The renal function remains stable with a BUN of 15 and a creatinine of 0.7. The LDH level is 511. Chest x-ray findings from today shows CHF, findings are essentially stable. He is afebrile. 07/17/2024, patient is being seen for a follow-up. The patient underwent a cardiac catheterization yesterday and the patient underwent successful stenting of the proximal and mid LAD. Following that, the Impella was discontinued and the patient was brought back to the intensive care unit. This morning, the patient remains sedated on propofol which is running at 25 mcg/kg/min and fentanyl at 0.5 mcg/kg/h. He remains on assist-control mode of mechanical ventilation. Pressure control cycled, with a pressure control of 20, rate of 16, FiO2 40% with a PEEP of 5. Blood gas showed a pH of 7.4 with a pCO2 40 and pO2 112. Chest x-ray shows cardiomegaly with bilateral pleural effusions and orotracheal tube is in good location. Fluid balance is plus a 1.5 L over the past 24 hours. Patient is on enteral feeding for nutritional support. A repeat CAT scan of the brain and C-spine was done yesterday and the CAT scan showed no acute intracranial process. Chronic appearing periventricular white matter ischemic changes were seen and there were less pronounced on the follow-up CAT scan. The white cell count of 5.5, hemoglobin is 8.7, platelet count is 97, BUN is at 16 with a creatinine of 0.7, bicarb is 23 and sodium levels at 135. LFTs are within normal limits. Afebrile. Hemodynamically stable on no pressors. Off the nitroglycerin drip for now. Cardiac rhythm is sinus bradycardia in the mid 50s. 07/18/2024, the patient was extubated and the patient was awake and alert and communicating. Earlier this morning, the patient was on oxygen at 2 L/min nasal cannula and chest x-ray was still showing CHF and bilateral pleural effusion and pulm vessel congestion. He was hemodynamically stable. He was off pressors. He had no complaints. As such, the patient was started on Entresto 24/25 1 tablet a day and the patient was kept on a combination of aspirin and Brilinta. The patient was also receiving Lasix 20 mg IV every 12 hours. The fluid balance is -2 L over the past 24 hours. On neurologic exam, the patient was unable to move his right upper extremity and there is an obvious right lower extremity weakness consistent with an acute CVA. Motor function on the left side was adequate at this point. Following our rounds, the patient became acutely short of breath and he became tachypneic and severe respiratory distress. He was placed on a BiPAP and the blood gas showed severe respiratory acidosis and a chest x-ray was consistent with acute pulmonary edema. Based on that, I had to intubate the patient and I placed him on the mechanical ventilator. Initial blood gases post mechanical ventilation showed a pH of 7.17 with a pCO2 of 66 and pO2 of 151 and based on that, increase the tidal volume to 450, increase the rate up to 28 and dropped FiO2 down to 80%. He remained hemodynamically stable. Slightly hypertensive. BUN is 19 with a creatinine of 0.7. Sodium levels at 139. WBC count 6.4 with a hemoglobin 8.7 and a platelet count of 107. Post intubation chest x-ray was consistent with pulmonary edema. ET tube noted to be pushed in by another 2 cm. He is currently on propofol which is running at 40 mcg/kg/min, calm and comfortable. Objective - Vital Signs Vital signs: Vital Signs Temp 97.8 F 07/18/24 08:00 Pulse 65 07/18/24 10:00 Resp 23 07/18/24 10:00 BP 118/49 07/18/24 10:00 Pulse Ox 97 07/18/24 10:00 FiO2 40 07/17/24 17:04 Intake & Output 07/17/24 07/18/24 07/18/24 18:59 06:59 18:59 Intake Total 1128.363 176.417 252 Output Total 1885 1455 495 Balance -756.637 -1278.583 -243 Weight 110 kg 103.6 kg Intake: IV 432 159 252 Magnesium Sulfate-D5w Pmx 100 1 gm In Dextrose/Water 1 100ml.bag @ 100 mls/hr IVPB ONCE ONE Rx#: [id number] Potassium Chloride 20 meq 100 In Water For Injection 1 100ml.bag @ 50 mls/hr IVPB Q2H [facility]I Rx#: [id number] Sodium Chloride 0.9% 1, 40 000 ml @ 20 mls/hr IV . Q24H [facility]I Rx#:[id number] Sodium Chloride 0.9% 1, 360 90 000 ml In Empty Bag 1 bag @ 75 mls/hr IV .[id number] [facility]I Rx#:[id number] a line x 2 72 69 12 Intake, IV Titration 166.363 17.417 Amount Dexmedetomidine/0.9% NaCl 17.417 (Pmx) 400 mcg In Empty Bag 1 bag @ 0.2 MCG/KG/HR 5.5 mls/hr IV .[id number] [facility]I Rx#:[id number] fentaNYL (PF). 1,000 mcg 48.989 In Sodium Chloride 0.9% 80 ml @ 0.5 MCG/KG/HR 4. 536 mls/hr IV .[id number] [facility]I Rx#:[id number] propofoL 1,000 mg In 117.374 Empty Bag 1 bag @ 15 MCG/ KG/MIN 8.165 mls/hr IV . [id number] [facility]LLI Rx#:[id number] Tube Feeding 380 Other 150 Output: Urine 1885 1455 495 Other: Voiding Method Indwelling Catheter Indwelling Catheter Indwelling Catheter ABP, PAP, CO, CI - Last Documented Arterial Blood Pressure 139/39 - Exam GENERAL EXAM: Intubated, sedated 78-year-old male, on the mechanical ventilator, in no apparent distress. Patient is currently on a combination of propofol HEAD: Normocephalic. EYES: Normal reaction of pupils, equal size. NOSE: Clear with pink turbinates. THROAT: Oral endotracheal and gastric tube secured in place. No erythema or exudates. Frothy respiratory secretions through the orotracheal tube. NECK: No masses, no JVD. CHEST: No chest wall deformity. LUNGS: Equal air entry with bilateral scattered rhonchi. CVS: S1 and S2 normal with no audible murmur, regular rhythm. ABDOMEN: No hepatosplenomegaly, normal bowel sounds, no guarding or rigidity. SPINE: No scoliosis or deformity SKIN: No rashes CENTRAL NERVOUS SYSTEM: Sedated, tone is normal in all 4 extremities. EXTREMITIES: There is no peripheral edema. No clubbing, no cyanosis. Peripheral pulses adequate in lower extremities bilaterally.. Extremities are cold. No mottling. No cyanosis. - Labs CBC & Chem 7: 07/18/24 05:20 07/18/24 05:20 Labs: Abnormal Lab Results - Last 24 Hours (Table) 07/17/24 07/17/24 07/17/24 Range/Units 11:35 17:00 19:07 RBC (4.30-5.90) m/uL Hgb (13.0-17.5) gm/dL Hct (39.0-53.0) % MCV (80.0-100.0) fL MCH (25.0-35.0) pg RDW (11.5-15.5) % Plt Count (150-450) k/uL ABG pO2 112 H (83-108) mmHg ABG Total CO2 27 H (19-24) mmol/L ABG O2 Saturation 98.9 H (94-97) % Hemoglobin 9.1 L (13.0-17.5) gm/dL Chloride (98-107) mmol/L POC Glucose (mg/dL) 121 H 124 H (70-110) mg/dL Calcium (8.4-10.2) mg/dL 07/17/24 07/18/24 07/18/24 Range/Units 23:33 05:20 05:20 RBC 4.13 L (4.30-5.90) m/uL Hgb 8.7 L (13.0-17.5) gm/dL Hct 28.0 L (39.0-53.0) % MCV 67.9 L (80.0-100.0) fL MCH 21.1 L (25.0-35.0) pg RDW 17.5 H (11.5-15.5) % Plt Count 107 L (150-450) k/uL ABG pO2 (83-108) mmHg ABG Total CO2 (19-24) mmol/L ABG O2 Saturation (94-97) % Hemoglobin (13.0-17.5) gm/dL Chloride 111 H (98-107) mmol/L POC Glucose (mg/dL) 113 H (70-110) mg/dL Calcium 8.1 L (8.4-10.2) mg/dL Microbiology - Last 24 Hours (Table) 07/16/24 09:33 Blood Culture - Preliminary Blood Assessment and Plan Plan: Outside the hospital cardiac arrest requiring 5 minutes of CPR prior to return of spontaneous circulation, rule out underlying anoxic encephalopathy. Acute hypoxic respiratory failure secondary to above. The patient was in pulmonary edema and cardiogenic shock. After stabilization of his condition, the patient was extubated on 07/17/2024 and he went into have/pulmonary edema earlier this morning following our rounds. Based on that, the patient had to be reintubated and currently is back on mechanical ventilator and his blood gas is still showing a component of acute respiratory acidosis. Acute non-ST segment elevation myocardial infarction, status post cardiac catheterization indicating triple-vessel coronary artery disease, status post cardiac catheterization and stenting x 2 of the mid and proximal LAD and the patient is currently on a combination of aspirin and Brilinta and the Impella has been discontinued Severe ischemic cardiomyopathy with an ejection fraction of 25 to 30% and segmental wall motion abnormalities. Limited echocardiogram shows impaired LV function and estimated ejection fraction is at 40% Cardiogenic shock improved and the patient is hemodynamically stable and Impella has been discontinued Acute CVA with motor weakness in the right side, right upper extremity more than right lower extremity. Acute kidney injury, recovered and the patient is producing adequate amount of urine output Recent discharge in May 2024 for atypical chest pain and COVID-19 infection/pneumonitis Rheumatoid arthritis Hypertension Benign prostatic hyperplasia Thrombocytopenia, platelet count is improving Anemia, multifactorial, acute, and hemoglobin stable for now. Plan: Continue mechanical ventilation with a tidal volume of 450, rate of 28, FiO2 of 80% with a PEEP of 5. Gradual wean down FiO2 Keep the patient on propofol for now and titrate the dose Continue diuretics and the patient was maintained on IV Lasix Cardiac catheterization completed and patient underwent stenting of the LAD x 2 Keep the Impella for hemodynamic support pressure urine output and cardiac output. Continue aspirin and Brilinta The patient was started on Entresto 1 tablet a day Monitor platelet count Patient is currently off pressors Restart nutritional support currently vital AF 1.2 Start IV Lasix 20 mg IV every 12 hours We will continue to follow and make further recommendations based on his clinical status Condition remains critical. Prognosis poor based on above-mentioned comorbidities. Will continue to follow along with the rest of the consultants. His evaluation was done more than 30 minutes. Time with Patient: Greater than 30
--- NOTE | 2024-07-18 14:00 | P.PCN ---
Date of Procedure: 07/18/24 Preoperative Diagnosis: Acute hypoxic respiratory failure, pulmonary edema Postoperative Diagnosis: Same Procedure(s) Performed: Intubation Anesthesia: MARIONA Surgeon: Alexis Nur Estimated Blood Loss (ml): 0 Pathology: none sent Condition: critical Disposition: ICU Operative Findings: Indication: Respiratory compromise. A time-out was completed verifying correct patient, procedure, site, positioning, and implant(s) or special equipment if applicable. The patient was positioned appropriately and a #8 endotracheal tube was placed under direct laryngoscopy. The tube was anchored at 22 cm at the teeth. Correct placement was confirmed by presence of bilateral breath sounds without air sounds in the abdomen on auscultation. An end-tidal CO2 monitor was also used to confirm tracheal placement of the ET tube. A chest x-ray was ordered to assess for pneumothorax and verify endotracheal tube placement. The patient tolerated the procedure well and there were no complications.
[2024-07-18 17:35] LABS: Glucose,Whole Blood 101 mg/dL (70-110)
[2024-07-18] MEDS: carvediloL 3.125 MG TAB PO SCH (17:35)
[2024-07-18] MEDS: CHLORHEXIDINE GLUCONATE 15 ML CUP MUCOUS MEM SCH (20:29)
[2024-07-19 00:04] LABS: Glucose,Whole Blood 122 mg/dL (70-110)
[2024-07-19 03:35] LABS: Anisocytosis Slight; Basophils % (A) 0 %; Eosinophils # (A) 0.3 k/uL (0-0.7); Eosinophils % (A) 3 %; HCT 29.5 % (39.0-53.0); HGB 9.2 gm/dL (13.0-17.5); Hypochromasia Slight; Lymphocytes # (A) 1.5 k/uL (1.0-4.8); Lymphocytes % (A) 15 %; MCH 20.8 pg (25.0-35.0); MCV 67.1 fL (80.0-100.0); Mean Platelet Volume 7.6; Microcytosis Marked; Monocytes # (A) 0.8 k/uL (0-1.0); Monocytes % (A) 8 %; Neutrophils # (A) 7.1 k/uL (1.3-7.7); Neutrophils % (A) 71 %; Poikilocytosis Slight; RDW 17.5 % (11.5-15.5)
[2024-07-19 03:43] LABS: African American GFR (CKD) >90 (>60 ml/min/1.73 sqM); Anion Gap 7 mmol/L; Blood Urea Nitrogen 28 mg/dL (9-20); Calcium 8.1 mg/dL (8.4-10.2); Carbon Dioxide 24 mmol/L (22-30); Chloride 109 mmol/L (98-107); Glucose 90 mg/dL (74-99); Magnesium 1.8 mg/dL (1.6-2.3); Non-African American GFR(CKD) 83 (>60 ml/min/1.73 sqM); Potassium 3.7 mmol/L (3.5-5.1); Sodium 140 mmol/L (137-145)
[2024-07-19 03:44] LABS: Platelet Count 169 k/uL (150-450)
[2024-07-19] MEDS: MAGNESIUM SULFATE-D5W PMX 1 GM in DEXTROSE/WATER 1 100ML.BAG IVPB ONE (04:32)
[2024-07-19] MEDS: POTASSIUM BICARBONATE/CIT AC 20 MEQ TABLET.EFF NG-TUBE SCH ×3 (05:08→19:50)
[2024-07-19 05:59] LABS: ABG Base Excess 3.4 mmol/L; ABG HCO3 26 mmol/L (21-25); ABG Oxygen Saturation 99.4 % (94-97); ABG PCO2 33 mmHg (35-45); ABG PH 7.51 (7.35-7.45); ABG PO2 120 mmHg (83-108); ABG TCO2 28 mmol/L (19-24); Allen Test Performed? Yes
[2024-07-19 06:22] LABS: Glucose,Whole Blood 106 mg/dL (70-110)
--- NOTE | 2024-07-19 06:32 | XR ---
EXAMINATION TYPE: XR chest 1V portable DATE OF EXAM: 07/19/2024 COMPARISON: 07/18/2024 HISTORY: Tube placement TECHNIQUE: Single frontal view of the chest is obtained. FINDINGS: ET tube is 2.9 cm above the santino. There is an NG tube within the stomach. There is a PICC line tip in the SVC/RA junction. There is a small to moderate right pleural effusion and a small left pleural effusion. There is proba ble bibasilar atelectasis. The pulmonary vasculature is markedly less congested and there is significant improvement in aeration in the mid and upper lung zones. There is no pneumothorax. The osseous structures are intact. IMPRESSION: Acute cardiopulmonary disease with significant interval improvement compared to the prior study descr ibed above. ET tube 2.9 cm above the santino. [facility], , 07/19/2024 6:30 AM
--- NOTE | 2024-07-19 11:23 | P.PN ---
Subjective Progress Note Date: 07/19/24 This is a 78-year-old male patient with a history of rheumatoid arthritis, hypertension, BPH. He was recently here in May for atypical chest pain and COVID-19 pneumonitis. Discharged home on May 15, 2024. Since that time he had been doing well. Pain the patient was having a 2 to 3-day history of worsening shortness of breath. He was active yesterday and cleaning out his garage and did complain of shortness of breath and some chest discomfort. He developed worsening shortness of breath throughout the night. EMS was called and the arrival the patient had collapse. He was pulseless and CPR was started taking approximately 5 minutes until return of spontaneous circulation. He was brought in and being assisted with a bag valve mask device and a pulse ox of 74 and then intubated in the emergency department. He was brought up to the intensive care unit. He is currently intubated, sedated on the mechanical ventilator at a rate of 24, tidal volume 450, FiO2 90% and a PEEP of 10. Blood gases had revealed a PaO2 of 70, pCO2 of 62 and a pH of 7.14 on 100% FiO2. He is on fentanyl at 1.5 mcg/kg/h. He is currently on a heparin drip per weight- based protocol. Norepinephrine at 13.5 mcg/min. Propofol at 30 mcg/kg/min. CT scan of the brain revealed no acute findings. CT angiogram revealed no evidence of pulmonary embolism. There is small bilateral effusions. Some patchy airspace opacity/consolidation throughout both lungs. Mild groundglass opacities. White count 19.7. Hemoglobin 14.6. Platelets 208. Sodium 138. Potassium 4.3. Bicarb 13. BUN 18. Creatinine 1.13. Glucose 313. Troponin 0.588. proBNP 2770. TSH 7.36. Viral screen is negative. The patient is seen today July 12, 2024 in follow-up in the intensive care unit. He remains intubated sedated on the mechanical ventilator. Currently in assist-control mode with a rate of 30, tidal volume 450, FiO2 40% and a PEEP of 10. Morning blood gases revealed a PaO2 of 163, pCO2 of 26 and a pH of 7.49 and 50% FiO2. The PEEP will be decreased to 5. He is currently on cefazolin. Remains on bronchodilators. He is continued on a heparin drip per weight-based protocol. Norepinephrine at 0.03 mcg/kg/min. Propofol at 35 mcg/kg/min. Fentanyl drip at 1.25 mcg/kg/h. White count 9.6. Hemoglobin 11.4. Platelets 166. Sodium 136. Potassium 3.9. Bicarb 18. BUN 29. Creatinine 1.47. Glucose 114. Continue tube feedings of vital AF at a rate of 10 with a goal of 57. Will be on hold for cardiac catheterization today 07/13/2024, the patient is being seen for a follow-up. The patient remains intubated on the mechanical ventilator. He requires mechanical support for his cardiogenic shock postcardiac arrest and the patient is an Impella with a P7 support and a 3.1 L/min of augmentation. The patient remains on sedatives and the patient is currently on propofol the patient is 0.7. On the mechanical ventilator at a rate of 30, tidal volume of 450, FiO2 40% with PEEP of 5. Blood gas showed pH of 7.46 with a pCO2 of 27 and pO2 of 97. Chest x-ray shows cardiomegaly without any acute abnormalities. Orotracheal tubes are in good perfusion. The patient is currently on KVO IV fluids. The patient is on no pressors and the patient was taken off norepinephrine and is producing adequate amount of urine output in the order of 50 cc an hour. He remains on IV heparin. Creatinine is improved and the patient's creatinine peaked at 1.47 and currently is down to 1.08. He has a left subclavian triple-lumen catheter in place. Stamp Mounter on the case and the patient underwent a cardiac catheterization on 07/12/2024 and the patient was found to have extremely calcified right and left coronary system with evidence of triple-vessel coronary artery disease and severely elevated left ventricular end-diastolic pressure. The white cell count at 7.9 with a hemoglobin 10.8 and a platelet count of 123. Sodium levels at 135, bicarbonate 18, BUN 27 with a creatinine of 1.08. LDH level is at 984. The echocardiogram was completed and the patient was found to have severe impairment of the LV function with an ejection fraction of 25 to 30%. There is also severe cardiomyopathy with wall motion abnormalities involving the apical area that was quite hypokinetic. The patient remains on aspirin. The patient remains on statins and the patient is currently on Lipitor 40 mg p.o. daily. Remains on IV heparin. He is also on vital AF for enteral feeding and nutritional support. Stamp Mounter on the case. Cardiothoracic surgery was also involved in his care. The patient was deemed a high surgical risk for coronary intervention and bypass. On 07/14/2024, the patient is being seen for a follow-up. The patient remains sedated and the patient is currently on a combination of propofol running at 40 mcg/kg/min and fentanyl at 0.75 mcg/kg/h. The patient remains well sedated on m echanical ventilator and Impella for mechanical support for cardiogenic shock. This morning, the patient's Impella has been switched to P4 support with an augmentation of 2.5 L/min. The patient remains off pressors. Is producing adequate amount of urine output. Fluid balance is +1 L over the past 24 hours. He is hemolyzing and the hemoglobin is currently down to 9.9. Most recent LDH is at 946. At the same time, the patient remains on the mechanical ventilator. He is on assist-control mode with rate of 18, tidal volume of 450, FiO2 40% with a PEEP of 5. The blood gas from today shows a pH of 7.33 with a pCO2 of 41 and pO2 of 97. Chest x-ray is consistent with CHF/increased incisional markings consistent with heart failure. Orotracheal tube is in a good location. The patient has diffuse interstitial pattern bilaterally along with cardiomegaly and he has developed some small bilateral pleural effusions worse on the left. He remains on IV heparin. Remains on enteral feeding for additional support and the patient is currently on vital AF at rate of 35 cc an hour. IV fluids are currently at KVO. The patient's cardiac rhythm is sinus. The white cell count is 6.7 with a hemoglobin 9.9 and a platelet count of 106. The BUN is 17 with a creatinine of 0.8 and a sodium levels at 137, bicarb is at 22. 07/15/2024, the patient is being seen for a follow-up. The patient has signs of anoxic encephalopathy. The patient was given sedation holiday yesterday and he did not demonstrate adequate neurologic recovery. It was noted that he was not moving his right side effectively compared to the left. Based on that, the patient was placed back on propofol which is currently running at 40 mcg/kg/min. Attempts to wean off his Impella failed yesterday the patient became hypot ensive. The patient was given IV fluids and norepinephrine and the patient is currently off norepinephrine. He has Impella is augmenting at P4 level with 2.5 L/min augmentation. Fluid balance is +600 cc over the past 24 hours and the patient is producing urine output in the order of 30 to 40 cc an hour. No diuretics for now. Chest x-ray still showing CHF and bilateral pleural effusion right more than left. Remains on mechanical ventilator, assist-control mode with rate of 16, tidal volume of 450, FiO2 40% with a PEEP of 5. pH is 7.34 with a pCO2 of 43 and pO2 of 86. He is doing abdominal breathing and based on that, the patient was switched to pressure control mode of mechanical vent ilation. He is on vital AF at a rate of 35 cc an hour. The white cell count is 7.4, hemoglobin 9.6, his platelet count is at 116. LDH level is 625. Electrolytes are all within normal limits with a BUN of 14 and a creatinine of 0.7. Noted the patient's platelet count has dropped during this current admission and the patient remains on IV heparin. A limited echocardiogram was done yesterday and the patient was found to have impaired LV function with an estimated ejection fraction of around 40%. The patient also had segmental wall motion abnormalities. There was moderate LV dysfunction based on the echocardiogram. 07/16/2024, the patient is being seen for a follow-up. Events from yesterday was noted. Following a failed sedation holiday, the patient was noted to have some right-sided weakness. Based on that, a CAT scan of the brain was done and it showed a low-attenuation area in the left parietal lobe suspecting an evolving stroke. Another sedation holiday will be given today. Meanwhile, the patient will be kept on Impella pending cardiac catheterization and coronary interv ention as planned by cardiology. The patient is currently on a pressure control mode of mechanical ventilation, at rate of 18, pressure control of 20, FiO2 of 40% with a PEEP of 5. Blood gas showed a pH of 7.34 with pCO2 49 and pO2 of 92. Remains on IV heparin. He had some episodic hematuria but subsided. Fluid balance is -687 cc over the past 24 hours. Patient was receiving enteral feeding for nutritional support and currently it is on hold in preparation for cardiac catheterization. He was receiving vital AF at rate of 35 cc an hour. IV fluids are currently at KVO. The patient remains on IV Lasix. Meanwhile, the white cell count is 5.9, hemoglobin is 8.9 and a platelet count is 20. The patient's BUN is 15 with a creatinine of 0.7. Serum bicarb is at 28. Sodium levels at 137 and a potassium level is at 4.2. The patient remains on Impella with P4 support and 2.5 liters per minute of cardiac augmentation. The renal function remains stable with a BUN of 15 and a creatinine of 0.7. The LDH level is 511. Chest x-ray findings from today shows CHF, findings are essentially stable. He is afebrile. 07/17/2024, patient is being seen for a follow-up. The patient underwent a cardiac catheterization yesterday and the patient underwent successful stenting of the proximal and mid LAD. Following that, the Impella was discontinued and the patient was brought back to the intensive care unit. This morning, the patient remains sedated on propofol which is running at 25 mcg/kg/min and fentanyl at 0.5 mcg/kg/h. He remains on assist-control mode of mechanical ventilation. Pressure control cycled, with a pressure control of 20, rate of 16, FiO2 40% with a PEEP of 5. Blood gas showed a pH of 7.4 with a pCO2 40 and pO2 112. Chest x-ray shows cardiomegaly with bilateral pleural effusions and orotracheal tube is in good location. Fluid balance is plus a 1.5 L over the past 24 hours. Patient is on enteral feeding for nutritional support. A repeat CAT scan of the brain and C-spine was done yesterday and the CAT scan showed no acute intracranial process. Chronic appearing periventricular white matter ischemic changes were seen and there were less pronounced on the follow-up CAT scan. The white cell count of 5.5, hemoglobin is 8.7, platelet count is 97, BUN is at 16 with a creatinine of 0.7, bicarb is 23 and sodium levels at 135. LFTs are within normal limits. Afebrile. Hemodynamically stable on no pressors. Off the nitroglycerin drip for now. Cardiac rhythm is sinus bradycardia in the mid 50s. 07/18/2024, the patient was extubated and the patient was awake and alert and communicating. Earlier this morning, the patient was on oxygen at 2 L/min nasal cannula and chest x-ray was still showing CHF and bilateral pleural effusion and pulm vessel congestion. He was hemodynamically stable. He was off pressors. He had no complaints. As such, the patient was started on Entresto 24/25 1 tablet a day and the patient was kept on a combination of aspirin and Brilinta. The patient was also receiving Lasix 20 mg IV every 12 hours. The fluid balance is -2 L over the past 24 hours. On neurologic exam, the patient was unable to move his right upper extremity and there is an obvious right lower extremity weakness consistent with an acute CVA. Motor function on the left side was adequate at this point. Following our rounds, the patient became acutely short of breath and he became tachypneic and severe respiratory distress. He was placed on a BiPAP and the blood gas showed severe respiratory acidosis and a chest x-ray was consistent with acute pulmonary edema. Based on that, I had to intubate the patient and I placed him on the mechanical ventilator. Initial blood gases post mechanical ventilation showed a pH of 7.17 with a pCO2 of 66 and pO2 of 151 and based on that, increase the tidal volume to 450, increase the rate up to 28 and dropped FiO2 down to 80%. He remained hemodynamically stable. Slightly hypertensive. BUN is 19 with a creatinine of 0.7. Sodium levels at 139. WBC count 6.4 with a hemoglobin 8.7 and a platelet count of 107. Post intubation chest x-ray was consistent with pulmonary edema. ET tube noted to be pushed in by another 2 cm. He is currently on propofol which is running at 40 mcg/kg/min, calm and comfortable. On 07/19/2024, the patient is being seen for a follow-up. The patient remains intubated on the mechanical ventilator earlier this morning the patient was on propofol running at 50 mcg/kg/min. He failed extubation due to an acute pulmonary edema and the patient had to be reintubated. His current cardiac rhythm is sinus bradycardia. He also has conduction delay and widened QRS pr obably a bundle branch block pattern. This was present since his admission. He was having few episodes of bradycardia and based on that the beta-blockers were placed on hold. He is still on IV Lasix 20 mg every 12 hours. Fluid balance is -2 L over the past 24 hours. He is on assist-control mode with rate of 28, tidal volume of 450, FiO2 of 60% with a PEEP of 5. Blood gas showed pH of 7.51 with a pCO2 of 33 and pO2 of 120. Chest x-ray still showing pulmonary edema. The patient was started on Entresto. He was started also on enteral feeding for nutritional support and the patient is on vital AF. Afebrile. No other significant issues overnight. Cardiology remains on the case. Remains on aspirin and Brilinta. Objective - Vital Signs Vital signs: Vital Signs Temp 99.1 F 07/19/24 08:00 Pulse 55 L 07/19/24 10:00 Resp 28 H 07/19/24 10:00 BP 113/53 07/19/24 10:00 Pulse Ox 94 L 07/19/24 10:00 FiO2 40 07/19/24 08:33 Intake & Output 07/18/24 07/19/24 07/19/24 18:59 06:59 18:59 Intake Total 621.819 635.695 254.799 Output Total 1670 870 205 Balance -1048.181 -234.305 49.799 Weight 113 kg Intake: IV 461 220 80 Magnesium Sulfate-D5w Pmx 100 1 gm In Dextrose/Water 1 100ml.bag @ 100 mls/hr IVPB ONCE ONE Rx#: [id number] Potassium Chloride 20 meq 200 In Water For Injection 1 100ml.bag @ 50 mls/hr IVPB Q2H [facility] Rx#: [id number] Sodium Chloride 0.9% 1, 140 220 80 000 ml @ 20 mls/hr IV . Q24H [facility] Rx#:[id number] a line x 2 21 Intake, IV Titration 160.819 415.695 174.799 Amount Nitroglycerin-D5w Pmx 50 4.875 mg In Dextrose/Water 1 250ml.bag @ 5 MCG/MIN 1.5 mls/hr IV .Q24H [facility] Rx#: [id number] propofoL 1,000 mg In 155.944 415.695 174.799 Empty Bag 1 bag @ 15 MCG/ KG/MIN 9.324 mls/hr IV . [id number] [facility] Rx#:[id number] Output: Urine 1670 870 205 Other: Voiding Method Indwelling Catheter Indwelling Catheter Indwelling Catheter ABP, PAP, CO, CI - Last Documented Arterial Blood Pressure 139/39 - Exam GENERAL EXAM: Intubated, sedated 78-year-old male, on the mechanical ventilator, in no apparent distress. Patient is currently on a combination of propofol HEAD: Normocephalic. EYES: Normal reaction of pupils, equal size. NOSE: Clear with pink turbinates. THROAT: Oral endotracheal and gastric tube secured in place. No erythema or exudates. Frothy respiratory secretions through the orotracheal tube. NECK: No masses, no JVD. CHEST: No chest wall deformity. LUNGS: Equal air entry with bilateral scattered rhonchi. CVS: S1 and S2 normal with no audible murmur, regular rhythm. ABDOMEN: No hepatosplenomegaly, normal bowel sounds, no guarding or rigidity. SPINE: No scoliosis or deformity SKIN: No rashes CENTRAL NERVOUS SYSTEM: Sedated, tone is normal in all 4 extremities. EXTREMITIES: There is no peripheral edema. No clubbing, no cyanosis. Peripheral pulses adequate in lower extremities bilaterally.. Extremities are cold. No mottling. No cyanosis. - Labs CBC & Chem 7: 07/19/24 03:00 07/19/24 08:50 Labs: Abnormal Lab Results - Last 24 Hours (Table) 07/18/24 07/18/24 07/19/24 Range/Units 13:11 13:32 00:03 Hgb (13.0-17.5) gm/dL Hct (39.0-53.0) % MCV (80.0-100.0) fL MCH (25.0-35.0) pg RDW (11.5-15.5) % ABG pH 7.17 L* (7.35-7.45) ABG pCO2 66 H (35-45) mmHg ABG pO2 151 H (83-108) mmHg ABG HCO3 (21-25) mmol/L ABG Total CO2 26 H (19-24) mmol/L ABG O2 Saturation 98.6 H (94-97) % Hemoglobin 11.1 L (13.0-17.5) gm/dL Potassium (3.5-5.1) mmol/L Chloride (98-107) mmol/L BUN (9-20) mg/dL POC Glucose (mg/dL) 128 H 122 H (70-110) mg/dL Calcium (8.4-10.2) mg/dL 07/19/24 07/19/24 07/19/24 Range/Units 03:00 03:00 05:57 Hgb 9.2 L (13.0-17.5) gm/dL Hct 29.5 L (39.0-53.0) % MCV 67.1 L (80.0-100.0) fL MCH 20.8 L (25.0-35.0) pg RDW 17.5 H (11.5-15.5) % ABG pH 7.51 H (7.35-7.45) ABG pCO2 33 L (35-45) mmHg ABG pO2 120 H (83-108) mmHg ABG HCO3 26 H (21-25) mmol/L ABG Total CO2 28 H (19-24) mmol/L ABG O2 Saturation 99.4 H (94-97) % Hemoglobin 9.1 L (13.0-17.5) gm/dL Potassium (3.5-5.1) mmol/L Chloride 109 H (98-107) mmol/L BUN 28 H (9-20) mg/dL POC Glucose (mg/dL) (70-110) mg/dL Calcium 8.1 L (8.4-10.2) mg/dL 07/19/24 Range/Units 08:50 Hgb (13.0-17.5) gm/dL Hct (39.0-53.0) % MCV (80.0-100.0) fL MCH (25.0-35.0) pg RDW (11.5-15.5) % ABG pH (7.35-7.45) ABG pCO2 (35-45) mmHg ABG pO2 (83-108) mmHg ABG HCO3 (21-25) mmol/L ABG Total CO2 (19-24) mmol/L ABG O2 Saturation (94-97) % Hemoglobin (13.0-17.5) gm/dL Potassium 3.4 L (3.5-5.1) mmol/L Chloride (98-107) mmol/L BUN (9-20) mg/dL POC Glucose (mg/dL) (70-110) mg/dL Calcium (8.4-10.2) mg/dL Microbiology - Last 24 Hours (Table) 07/16/24 09:33 Blood Culture - Preliminary Blood Assessment and Plan Plan: Outside the hospital cardiac arrest requiring 5 minutes of CPR prior to return of spontaneous circulation, rule out underlying anoxic encephalopathy. Acute hypoxic respiratory failure secondary to above. The patient was in pulmonary edema and cardiogenic shock. After stabilization of his condition, the patient was extubated on 07/17/2024 and he went into have/pulmonary edema earlier this morning following our rounds. Based on that, the patient had to be reintubated and currently is back on mechanical ventilator and his blood gas is still showing a component of acute respiratory acidosis. For now, the patient remains on the mechanical ventilator. Pulmonary edema with bilateral pleural effusions, currently on IV Lasix with adequate urine output. Sinus pericardia with a bundle branch block pattern Acute non-ST segment elevation myocardial infarction, status post cardiac catheterization indicating triple-vessel coronary artery disease, status post cardiac catheterization and stenting x 2 of the mid and proximal LAD and the patient is currently on a combination of aspirin and Brilinta and the Impella has been discontinued Severe ischemic cardiomyopathy with an ejection fraction of 25 to 30% and segmental wall motion abnormalities. Limited echocardiogram shows impaired LV function and estimated ejection fraction is at 40% Cardiogenic shock improved and the patient is hemodynamically stable and Impella has been discontinued Acute CVA with motor weakness in the right side, right upper extremity more than right lower extremity. Acute kidney injury, recovered and the patient is producing adequate amount of urine output Recent discharge in May 2024 for atypical chest pain and COVID-19 infection/pneumonitis Rheumatoid arthritis Hypertension Benign prostatic hyperplasia Thrombocytopenia, platelet count is improving Anemia, multifactorial, acute, and hemoglobin stable for now. Plan: Continue mechanical ventilation and dropped rate down to 2011 dropped FiO2 down to 40% Keep the patient on propofol for now and titrate the dose Continue diuretics and the patient was maintained on IV Lasix 20 mg IV every 12 hours with a negative fluid balance Cardiac catheterization completed and patient underwent stenting of the LAD x 2 Impella was used for hemodynamic support pressure and currently the patient on as the Impella removed urine output and cardiac output. Continue aspirin and Brilinta The patient was started on Entresto 1 tablet a day Monitor platelet count Patient is currently off pressors nutritional support currently vital AF 1.2 No plans for weaning today We will continue to follow and make further recommendations based on his clinical status Condition remains critical. Prognosis poor based on above-mentioned comorbidities. Will continue to follow along with the rest of the consultants. His evaluation was done more than 30 minutes. Time with Patient: Greater than 30
[2024-07-19 11:38] LABS: Glucose,Whole Blood 94 mg/dL (70-110)
[2024-07-19] MEDS: DEXTROSE 5% IN WATER 100 ML with AMIODARONE 150 MG IV ONE (11:54)
[2024-07-19] MEDS: AMIODARONE 360 MG in DEXTROSE 5% IN WATER 200 ML IV ONE (12:09)
--- NOTE | 2024-07-19 13:31 | P.PN ---
Subjective Progress Note Date: 07/19/24 I am following up with the patient and it seems that yesterday the patient was extubated but afterwards to be reintubated. He continues to be on a ventilator and is on IV propofol. No new neurological issues. Objective - Vital Signs Vital signs: Vital Signs Temp 99.1 F 07/19/24 12:00 Pulse 130 H 07/19/24 12:00 Resp 24 07/19/24 12:00 BP 108/59 07/19/24 12:00 Pulse Ox 96 07/19/24 12:00 FiO2 40 07/19/24 12:06 Intake & Output 07/18/24 07/19/24 07/19/24 18:59 06:59 18:59 Intake Total 621.819 635.695 495.607 Output Total 1670 870 505 Balance -1048.181 -234.305 -9.393 Weight 113 kg Intake: IV 461 220 120 Magnesium Sulfate-D5w Pmx 100 1 gm In Dextrose/Water 1 100ml.bag @ 100 mls/hr IVPB ONCE ONE Rx#: [id number] Potassium Chloride 20 meq 200 In Water For Injection 1 100ml.bag @ 50 mls/hr IVPB Q2H [facility] Rx#: [id number] Sodium Chloride 0.9% 1, 140 220 120 000 ml @ 20 mls/hr IV . Q24H [facility] Rx#:[id number] a line x 2 21 Intake, IV Titration 160.819 415.695 255.607 Amount Nitroglycerin-D5w Pmx 50 4.875 mg In Dextrose/Water 1 250ml.bag @ 5 MCG/MIN 1.5 mls/hr IV .Q24H [facility] Rx#: [id number] propofoL 1,000 mg In 155.944 415.695 255.607 Empty Bag 1 bag @ 15 MCG/ KG/MIN 9.324 mls/hr IV . [id number] [facility] Rx#:[id number] Oral 120 Output: Urine 1670 870 505 Other: Voiding Method Indwelling Catheter Indwelling Catheter Indwelling Catheter ABP, PAP, CO, CI - Last Documented Arterial Blood Pressure 139/39 - Exam General: Lying in bed and does not appear in acute distress. Lung: Intubated on a ventilator Neuro: Very limited. Is on IV Propofol. He is severely drowsy. Some of the work-up during this hospital visit consisted of: Ammonia is 18 Vitamin B12: 414 Folate: 12.5 TSH: 7.630, free T4 0.80 Lipid panel: TG 150, Cholestrol 130, LDL [address] of the head is reported as no acute finding. I reviewed the CT and there is a lot of artifact it is hard to appreciate any acute or subacute ischemia. I felt there is hypoattenuation on the left frontal parietal region but again it is hard to assess. Carotid duplex is reported as arthritis plaque in present with may have mild to moderate internal carotid artery narrowing on the left just above 50. Unable to visualize right vertebral artery. 2D echo was reported as severe cardiomyopathy with wall motion abnormality including apical hypokinesis. Ejection fraction of 25 to 30%. Repeat CT head on 07/15/2024: reported as no acute intracranial bleed. Focal region of low-attenuation within the left parietal lobe which may represent an age indeterminate infarct. Consider further evaluation with MRI. I personally reviewed the CT and felt the patient has subacute infarct in the left parietal region. MOst recent CT of the head is reported as no acute intracranial process. CT head shows hypodensity over the left frontal parietal region. CT cervical spine is reported as no acute osseous abnormality cervical spine. - Labs CBC & Chem 7: 07/19/24 03:00 07/19/24 08:50 Labs: Abnormal Lab Results - Last 24 Hours (Table) 07/18/24 07/19/24 07/19/24 Range/Units 13:32 00:03 03:00 Hgb (13.0-17.5) gm/dL Hct (39.0-53.0) % MCV (80.0-100.0) fL MCH (25.0-35.0) pg RDW (11.5-15.5) % ABG pH (7.35-7.45) ABG pCO2 (35-45) mmHg ABG pO2 (83-108) mmHg ABG HCO3 (21-25) mmol/L ABG Total CO2 (19-24) mmol/L ABG O2 Saturation (94-97) % Hemoglobin (13.0-17.5) gm/dL Potassium (3.5-5.1) mmol/L Chloride 109 H (98-107) mmol/L BUN 28 H (9-20) mg/dL POC Glucose (mg/dL) 128 H 122 H (70-110) mg/dL Calcium 8.1 L (8.4-10.2) mg/dL 07/19/24 07/19/24 07/19/24 Range/Units 03:00 05:57 08:50 Hgb 9.2 L (13.0-17.5) gm/dL Hct 29.5 L (39.0-53.0) % MCV 67.1 L (80.0-100.0) fL MCH 20.8 L (25.0-35.0) pg RDW 17.5 H (11.5-15.5) % ABG pH 7.51 H (7.35-7.45) ABG pCO2 33 L (35-45) mmHg ABG pO2 120 H (83-108) mmHg ABG HCO3 26 H (21-25) mmol/L ABG Total CO2 28 H (19-24) mmol/L ABG O2 Saturation 99.4 H (94-97) % Hemoglobin 9.1 L (13.0-17.5) gm/dL Potassium 3.4 L (3.5-5.1) mmol/L Chloride (98-107) mmol/L BUN (9-20) mg/dL POC Glucose (mg/dL) (70-110) mg/dL Calcium (8.4-10.2) mg/dL Microbiology - Last 24 Hours (Table) 07/16/24 09:33 Blood Culture - Preliminary Blood Assessment and Plan Assessment: This is a 78-year-old gentleman having shortness of breath and presents to our facility on 07/11/2024 because out of the hospital cardiopulmonary arrest lasting for 5 minutes. Found to have severe underlying vessel coronary artery disease, ischemic cardiomyopathy with ejection fraction of 15 to 20% and had Impella placed on 07/12/2024. First his right side weakness may be began on 07/13/2024 but it was hard to assess because he was on sedation. Patient is on IV heparin for his cardiac issues. Subacute ischemic stroke over the left parietal/frontal appears water shed infarct likely due to cardiopulmonary arrest. Has acute right hemiparesis. No IV thrombolytic since patient is on heparin drip and is outside the window and the risk outweigh the benefit. Altered Mental status multifactorial: Due to sedation, stroke----with sedation holiday he was following simple commands. Underlying history of multivessel coronary artery disease Ischemic cardiomyopathy with ejection fraction of 15 to 20% status post Impella Out of the hospital cardiopulmonary arrest lasting for 5 minutes Plan: Patient is on aspirin 81 mg, Lipitor 40 mg nightly. Patient is on heparin drip. Once the patient is extubated recommend to pursue with MRI of the brain. Neurochecks Cardiac monitoring PT OT are consulted NO need for EEG since this is not seizure and patient is following commands after sedation holiday. Cardiothoracic team is consulted for CABG evaluation Will defer the rest of the medical management to primary and other specialist For DVT prophylaxis the patient is on heparin drip The plan is discussed with patient's brother who is at bedside and his nurse. Dr. Randall will resume neurology service tomorrow A.M. Time with Patient: Less than 30
--- NOTE | 2024-07-19 13:34 | P.PN ---
Subjective Progress Note Date: 07/19/24 Hospital course: Patient is a 78-year-old male with PMH of rheumatoid arthritis, hypertension and BPH was brought to the emergency department via EMS for cardiopulmonary arrest. His initial laboratory evaluation shows WBC of 19.7, hemoglobin 14.6, MCV of 74.8, platelet count 2 8, sodium 138, potassium 4.3, chloride 117, bicarb 13, BUN 18, creatinine 1.8. His cardiac troponin has been trending upward from 0.588--->14.9. Patient was recently seen at the hospital for the complaint of chest pain. Patient was diagnosed with type II OR slightly with elevated troponins likely secondary to COVID-19 pneumonitis. Echocardiogram showed LVEF of 55% and moderate pulmonary hypertension. Viral panel negative. Chest x-ray interpreted independently shows diffuse patchy infiltrate with groundglass opacities and bilateral pleural effusion. Brain CT shows no acute intracranial process. Chest CTA is negative for pulmonary embolism and patchy opacities throughout both lungs with small bilateral pleural effusions. EKG interpreted independently shows sinus bradycardia with a regular branch block. T wave inversions in anteroseptal and lateral leads. Echocardiogram shows LVEF of 25 to 30% and ischemic cardiomyopathy with apical hypokinesis. Repeat brain CT on 07/15/2024 shows concern for suspected left parietal subacute CVA compared to previous brain CT. CAT scan of the brain was repeated again on 07/17/2024 which at this time shows no acute intracranial process. Patient was taken to the [facility] on 06/16/2024 with a successful stenting to mid and proximal LAD. Impella was taken out. Patient was extubated and was able to maintain his mean arterial pressure without Impella and pressors. Patient had worsening respiratory status. Patient reintubated. Subjective: Patient seen and examined today. Patient reintubated due to worsening respiratory status. No bowel movements recently. Objective: Vital signs reviewed General: Intubated and sedated HEENT: normocephalic, atraumatic, no tracheal deviation Respiratory: Bilateral rhonchi, mechanically ventilated CVS: perfusing all extremities, no distal gangrene, trace pitting edema GI: soft, ND : no SPT, no CVAT, heard is present Neuro: Sedated Data reviewed today: Pertinent Labs: WBC 10, hemoglobin 9.2, platelet 169, pH 7.51, pCO2 33, sodium 140, creatinine 0.89, magnesium 1.8, blood sugars range between 90-1 06 Pertinent imaging: Chest x-ray independently interpreted, shows bilateral interstitial opacities, worse on the right. Assessment/Plan: #Out of the hospital cardiopulmonary arrest #NSTEMI status post mid and proximal LAD Stents #Cardiogenic Shock, resolved, status post Impella and pressors #ischemic cardiomyopathy #Recent history of atypical chest pain and COVID-19 pneumonitis #Acute encephalopathy, likely metabolic # Subacute left parietal CVA Pulmonology note reviewed, patient reintubated due to increased dyspnea Continue with dual antiplatelet therapy: Aspirin 81 mg p.o. daily and Brilinta 90 mg p.o. twice daily Atorvastatin 40 mg p.o. Avoid beta kaela due to bradycardia, on Entresto 24-26 mg twice daily, Cardiology following, patient may need further intervention on the RCA lesion Continue on IV furosemide 20 mg every 12 hours, monitor electrolytes Discussed management with neurology, likely had watershed infarct due to cardiac arrest PT/OT/speech therapy once patient is extubated #Bandemia, likely reactive to above, resolved #Normocytic anemia secondary to above -Improving #Anion gap metabolic acidosis secondary to lactic acid, resolved #Euthyroid sick syndrome secondary above TSH 7.63, free T4 - 0.8 #Hypermagnesemia, resolved Chronic conditions: BPH: Resume Flomax Hypertension: Hold nifedipine DVT prophylaxis: Lovenox 40 mg subcu daily CODE STATUS: Full code Anticipated discharge place: Pending clinical course Objective - Vital Signs Vital signs: Vital Signs Temp 99.1 F 07/19/24 12:00 Pulse 130 H 07/19/24 12:00 Resp 24 07/19/24 12:00 BP 108/59 07/19/24 12:00 Pulse Ox 96 07/19/24 12:00 FiO2 40 07/19/24 12:06 Intake & Output 07/18/24 07/19/24 07/19/24 18:59 06:59 18:59 Intake Total 621.819 635.695 495.607 Output Total 1670 870 505 Balance -1048.181 -234.305 -9.393 Weight 113 kg Intake: IV 461 220 120 Magnesium Sulfate-D5w Pmx 100 1 gm In Dextrose/Water 1 100ml.bag @ 100 mls/hr IVPB ONCE ONE Rx#: [id number] Potassium Chloride 20 meq 200 In Water For Injection 1 100ml.bag @ 50 mls/hr IVPB Q2H [facility] Rx#: [id number] Sodium Chloride 0.9% 1, 140 220 120 000 ml @ 20 mls/hr IV . Q24H [facility] Rx#:[id number] a line x 2 21 Intake, IV Titration 160.819 415.695 255.607 Amount Nitroglycerin-D5w Pmx 50 4.875 mg In Dextrose/Water 1 250ml.bag @ 5 MCG/MIN 1.5 mls/hr IV .Q24H [facility] Rx#: [id number] propofoL 1,000 mg In 155.944 415.695 255.607 Empty Bag 1 bag @ 15 MCG/ KG/MIN 9.324 mls/hr IV . [id number] [facility] Rx#:[id number] Oral 120 Output: Urine 1670 870 505 Other: Voiding Method Indwelling Catheter Indwelling Catheter Indwelling Catheter ABP, PAP, CO, CI - Last Documented Arterial Blood Pressure 139/39 - Labs CBC & Chem 7: 07/19/24 03:00 07/19/24 08:50 Labs: Abnormal Lab Results - Last 24 Hours (Table) 07/18/24 07/19/24 07/19/24 Range/Units 13:32 00:03 03:00 Hgb (13.0-17.5) gm/dL Hct (39.0-53.0) % MCV (80.0-100.0) fL MCH (25.0-35.0) pg RDW (11.5-15.5) % ABG pH (7.35-7.45) ABG pCO2 (35-45) mmHg ABG pO2 (83-108) mmHg ABG HCO3 (21-25) mmol/L ABG Total CO2 (19-24) mmol/L ABG O2 Saturation (94-97) % Hemoglobin (13.0-17.5) gm/dL Potassium (3.5-5.1) mmol/L Chloride 109 H (98-107) mmol/L BUN 28 H (9-20) mg/dL POC Glucose (mg/dL) 128 H 122 H (70-110) mg/dL Calcium 8.1 L (8.4-10.2) mg/dL 07/19/24 07/19/24 07/19/24 Range/Units 03:00 05:57 08:50 Hgb 9.2 L (13.0-17.5) gm/dL Hct 29.5 L (39.0-53.0) % MCV 67.1 L (80.0-100.0) fL MCH 20.8 L (25.0-35.0) pg RDW 17.5 H (11.5-15.5) % ABG pH 7.51 H (7.35-7.45) ABG pCO2 33 L (35-45) mmHg ABG pO2 120 H (83-108) mmHg ABG HCO3 26 H (21-25) mmol/L ABG Total CO2 28 H (19-24) mmol/L ABG O2 Saturation 99.4 H (94-97) % Hemoglobin 9.1 L (13.0-17.5) gm/dL Potassium 3.4 L (3.5-5.1) mmol/L Chloride (98-107) mmol/L BUN (9-20) mg/dL POC Glucose (mg/dL) (70-110) mg/dL Calcium (8.4-10.2) mg/dL Microbiology - Last 24 Hours (Table) 07/16/24 09:33 Blood Culture - Preliminary Blood
--- NOTE | 2024-07-19 15:07 | P.PN ---
Subjective Progress Note Date: 07/19/24 [facility] The patient is a 78-year-old gentleman with a past medical history significant for hypertension and rheumatoid arthritis and recently diagnosed of COVID-19 infection all this information was obtained from the chart. Currently the patient is intubated and he is on mechanical ventilation and history was taken from the chart as well as from the nurse taking care of the patient. The patient was in his usual state of health till earlier today when he was doing some work in his backyard and he was experiencing symptoms of chest discomfort and shortness of breath. Subsequent ambulance was called and upon arrival the patient collapsed and he was pulseless. CPR initiated for 5 minutes and brought to normal sinus mechanism. Subsequently patient was intubated and placed on mechanical ventilation. He was hypotensive and he continues to be hypotensive requiring norepinephrine. He was seen in intensive care unit. Currently he is still hemodynamically unstable and requiring norepinephrine. He is in sinus mechanism. I did review the EKG and that showed sinus mechanism with deep T wave inversion in the anterolateral leads concerning for severe underlying coronary artery disease versus stress-induced cardiomyopathy. At the same time the patient was admitted to the hospital last month with a chest discomfort in the setting of COVID with abnormal cardiac enzymes and he was treated medically at that point. Please note that the patient was experiencing chest discomfort and shortness of breath earlier today. No history of coronary artery disease or congestive heart failure or cardiac arrhythmia. The first set of troponin came in to be abnormal. The physical examination is remarkable for patient intubated on mechanical ventilation hemodynamically unstable with regular rate and rhythm and systolic murmur at the apical area and diminished breathing sounds bilaterally. July 12, 2024 The patient was seen and evaluated this morning. He continues to be intubated on mechanical ventilation and continues to be also on vasopressors. He is maintaining normal sinus mechanism. The plan is to pursue with a heart catheterization. The physical examination is remarkable for regular rhythm with a distant heart sounds and diminished breathing sounds bilaterally and no edema was noted in the lower extremities. July 13, 2024 Patient is seen and examined at bedside this a.m. He continues to be on ventilator support and Impella support. CVP 10 mmHg, MAP 65 mmHg, SBP 110, DBP 50 mmHg. P7 on Impella, off pressors Good urine output Hemoglobin 10.8, platelets 123, mild hemolysis noticed, LDH is elevated, fibrinogen is elevated but in range. July 14, 2024 Patient is seen and examined at bedside this a.m. He continues to be on ventilator support and Impella support. CVP 8 to 10 mmHg, MAP of 65 mmHg, SBP around 100 mmHg, DBP around 50 mmHg Last 9 was on high level. This morning he was on P7 Impella. Off pressors since yesterday afternoon. Continues to have good urine output Hemoglobin 9.9, platelets 106, fibrogenic 507, BUN 17, creatinine 0.8 We tried weaning to P4 levels. At P4 the [place] cardiac index was around 3.2. [employer] still less than 0.6. Patient was given sedation vacation and but neurological evaluation was not appropriate as sedation medication was not long enough. July 15, 2024 During sedation vacation and neurological evaluation patient was able to do some purposeful movement however the motor strength in right upper extremity was lower as compared to her extremities. Due to the focal nature we performed a CT head which showed some concerns of possible left parietal lobe subacute CVA. Case was discussed with neurology who recommended to continue anticoagulation for now and consideration of higher benefit over risk. At P4, SBP around 120s, DBP around 40s, MAP around 65, Cardiac index 3.1 L/min/m. July 16, 2024 Patient is seen and examined at bedside this a.m. Last night patient had brief hematuria. For this we stopped heparin temporarily and patient's urine cleared up. Patient is back on IV heparin drip with no further hematuria. Patient is maintaining good blood pressure at P4 Impella support. Adequate peripheral p erfusion with good urine output. Jul 17 2024 Patient was seen and examined at bedside this a.m. Patient had PCI of LAD done yesterday by Dr. Nobles. Impella was removed. Hemodynamically stable. Good urine output. Still in positive fluid balance. Planning for a sedation vacation and weaning trial today. Chest x-ray shows bilateral pulmonary congestion. Hemoglobin platelets and kidney function are stable. July 18, 2024 Patient was seen and examined at bedside this a.m. Yesterday evening patient was extubated. Currently he is on BiPAP support. Today at the time of evaluation around 11 AM, he was in respiratory distress. His chest x-ray showed pulmonary congestion with evidence of consolidation in the right lower lung base. For this I gave him additional 40 mg IV Lasix, 1 dose of cefepime 1 g, obtain lactate and ABG levels, and started nitroglycerin drip for pulmonary edema and systolic blood pressure more than 200 mmHg. July 19, 2024 After yesterday's respiratory distress, he was intubated again. Currently is on vent support. He was noticed to be in atrial fibrillation RVR at the bedside today. On exam Intubated and sedated, on ventilator support, ET tube in place, appropriate air entry in bilateral lung pineda S1-S2 audible, Impella device in place with murmur from Impella device appreciated. Arterial line in place, good pulses in bilateral upper and lower extremity 1+ pitting edema bilateral lower extremity Detailed neuroexam was not performed Assessment Out of the hospital cardiopulmonary arrest Ventilatory dependent respiratory failure s/p extubation 07/17/2024, currently on BiPAP support. Status post Impella support for cardiogenic shock, currently Impella is out 07/16 Status post PCI of LAD Status post CPR with a downtime of 5 minutes Ischemic cardiomyopathy, EF 15 to 20% Multivessel CAD Suspect subacute left parietal lobe CVA with right upper extremity motor weakness. Multiple comorbid conditions Plan IV Lasix 40 mg daily Start amiodarone bolus 150 mg in the drip thereafter Continue Entresto 24/26 mg twice daily. IV nitroglycerin drip for elevated blood pressure if SBP is more than 140 mmHg. Continue to hold beta-kaela at this time. On Saturday plan for staged PCI of RCA/OM. Continue dual antiplatelet therapy, with aspirin and Brilinta. Continue Lipitor. Hold beta-kaela for now. Case was discussed with ICU attending. And the nursing staff. Supportive care and vent care as per the ICU team. Patient significant other updated about the treatment plan and current treatment provided in the prognosis Objective - Vital Signs Vital signs: Vital Signs Temp 99.1 F 07/19/24 12:00 Pulse 110 H 07/19/24 14:15 Resp 22 07/19/24 14:15 BP 109/65 07/19/24 14:15 Pulse Ox 96 07/19/24 14:15 FiO2 40 07/19/24 12:06 Intake & Output 07/18/24 07/19/24 07/19/24 18:59 06:59 18:59 Intake Total 621.819 635.695 675.291 Output Total 1670 870 730 Balance -1048.181 -234.305 -54.709 Weight 113 kg Intake: IV 461 220 160 Magnesium Sulfate-D5w Pmx 100 1 gm In Dextrose/Water 1 100ml.bag @ 100 mls/hr IVPB ONCE ONE Rx#: [id number] Potassium Chloride 20 meq 200 In Water For Injection 1 100ml.bag @ 50 mls/hr IVPB Q2H [facility] Rx#: [id number] Sodium Chloride 0.9% 1, 140 220 160 000 ml @ 20 mls/hr IV . Q24H [facility] Rx#:[id number] a line x 2 21 Intake, IV Titration 160.819 415.695 275.291 Amount Nitroglycerin-D5w Pmx 50 4.875 mg In Dextrose/Water 1 250ml.bag @ 5 MCG/MIN 1.5 mls/hr IV .Q24H [facility] Rx#: [id number] propofoL 1,000 mg In 155.944 415.695 275.291 Empty Bag 1 bag @ 15 MCG/ KG/MIN 9.324 mls/hr IV . [id number] [facility] Rx#:[id number] Oral 240 Output: Urine 1670 870 730 Other: Voiding Method Indwelling Catheter Indwelling Catheter Indwelling Catheter ABP, PAP, CO, CI - Last Documented Arterial Blood Pressure 139/39 - Labs CBC & Chem 7: 07/19/24 03:00 07/19/24 08:50 Labs: Abnormal Lab Results - Last 24 Hours (Table) 07/19/24 07/19/24 07/19/24 Range/Units 00:03 03:00 03:00 Hgb 9.2 L (13.0-17.5) gm/dL Hct 29.5 L (39.0-53.0) % MCV 67.1 L (80.0-100.0) fL MCH 20.8 L (25.0-35.0) pg RDW 17.5 H (11.5-15.5) % ABG pH (7.35-7.45) ABG pCO2 (35-45) mmHg ABG pO2 (83-108) mmHg ABG HCO3 (21-25) mmol/L ABG Total CO2 (19-24) mmol/L ABG O2 Saturation (94-97) % Hemoglobin (13.0-17.5) gm/dL Potassium (3.5-5.1) mmol/L Chloride 109 H (98-107) mmol/L BUN 28 H (9-20) mg/dL POC Glucose (mg/dL) 122 H (70-110) mg/dL Calcium 8.1 L (8.4-10.2) mg/dL 07/19/24 07/19/24 Range/Units 05:57 08:50 Hgb (13.0-17.5) gm/dL Hct (39.0-53.0) % MCV (80.0-100.0) fL MCH (25.0-35.0) pg RDW (11.5-15.5) % ABG pH 7.51 H (7.35-7.45) ABG pCO2 33 L (35-45) mmHg ABG pO2 120 H (83-108) mmHg ABG HCO3 26 H (21-25) mmol/L ABG Total CO2 28 H (19-24) mmol/L ABG O2 Saturation 99.4 H (94-97) % Hemoglobin 9.1 L (13.0-17.5) gm/dL Potassium 3.4 L (3.5-5.1) mmol/L Chloride (98-107) mmol/L BUN (9-20) mg/dL POC Glucose (mg/dL) (70-110) mg/dL Calcium (8.4-10.2) mg/dL Microbiology - Last 24 Hours (Table) 07/16/24 09:33 Blood Culture - Preliminary Blood
[2024-07-19] MEDS: AMIODARONE 450 MG in DEXTROSE 5% IN WATER 250 ML IV SCH (17:56)
[2024-07-19 18:22] LABS: Glucose,Whole Blood 96 mg/dL (70-110)
[2024-07-19] MEDS: SENNOSIDES 8.6 MG TAB PO SCH (21:17)
[2024-07-19 23:25] LABS: Glucose,Whole Blood 115 mg/dL (70-110)
[2024-07-19] MEDS: POTASSIUM CHLORIDE 10 MEQ in WATER FOR INJECTION 1 100ML.BAG IVPB SCH (23:36)
[2024-07-20] MEDS: SODIUM CHLORIDE 0.9% 1,000 ML in EMPTY BAG 1 BAG IV SCH ×2 (03:35→14:47)
[2024-07-20 05:17] LABS: ABG Base Excess 3.6 mmol/L; ABG HCO3 27 mmol/L (21-25); ABG Oxygen Saturation 96.9 % (94-97); ABG PCO2 35 mmHg (35-45); ABG PO2 82 mmHg (83-108); ABG TCO2 28 mmol/L (19-24); Allen Test Performed? Yes
[2024-07-20 06:07] LABS: Anisocytosis Slight; Basophils % (A) 0 %; Eosinophils # (A) 0.3 k/uL (0-0.7); Eosinophils % (A) 3 %; HCT 30.1 % (39.0-53.0); HGB 9.6 gm/dL (13.0-17.5); Hypochromasia Moderate; Lymphocytes # (A) 1.4 k/uL (1.0-4.8); Lymphocytes % (A) 13 %; MCH 21.3 pg (25.0-35.0); MCHC 31.8 g/dL (31.0-37.0); Mean Platelet Volume 7.5; Microcytosis Marked; Monocytes # (A) 0.7 k/uL (0-1.0); Monocytes % (A) 7 %; Neutrophils # (A) 7.9 k/uL (1.3-7.7); Neutrophils % (A) 75 %; Platelet Count 182 k/uL (150-450); Poikilocytosis Slight; RBC 4.49 m/uL (4.30-5.90); RDW 17.2 % (11.5-15.5); WBC 10.5 k/uL (3.8-10.6)
[2024-07-20 06:15] LABS: Glucose,Whole Blood 103 mg/dL (70-110)
[2024-07-20 06:24] LABS: African American GFR (CKD) >90 (>60 ml/min/1.73 sqM); Anion Gap 6 mmol/L; Blood Urea Nitrogen 28 mg/dL (9-20); Calcium 7.8 mg/dL (8.4-10.2); Carbon Dioxide 27 mmol/L (22-30); Chloride 105 mmol/L (98-107); Glucose 95 mg/dL (74-99); Non-African American GFR(CKD) 83 (>60 ml/min/1.73 sqM); Potassium 3.9 mmol/L (3.5-5.1); Sodium 138 mmol/L (137-145)
[2024-07-20] MEDS: POTASSIUM CHLORIDE 10 MEQ in WATER FOR INJECTION 1 100ML.BAG IVPB SCH (06:54)
[2024-07-20] MEDS ORDERED: HEPARIN SODIUM,PORCINE 10,000 UNIT in SODIUM CHLORIDE 0.9% 1,000 ML IRRIGATION PRN (07:00)
[2024-07-20] MEDS ORDERED: HEPARIN SODIUM,PORCINE (1 ML) 2,500 UNIT in SODIUM CHLORIDE 0.9% 250 ML IRRIGATION PRN (07:00)
--- NOTE | 2024-07-20 07:36 | P.PN ---
Subjective Progress Note Date: 07/20/24 PROGRESS NOTE The patient is a 78-year-old male who was admitted to the hospital on July 11 with cardiac arrest, severe cardiomyopathy and severe triple-vessel disease. He was evaluated by Dr. Abrams, underwent an Impella placement. His echocardiogram on presentation showed an ejection fraction 25 to 30% with anterior apical hypokinesis. On July 16 he underwent stenting of the LAD with removal of the Impella CP. He remains intubated, sedated. He is having episodes of paroxysmal atrial fibrillation with sinus bradycardia at times. He has good urine output. He is scheduled to undergo PCI of the RCA and the left circumflex today. He is on no vasopressors. He was found to have right-sided weakness suggestive of a cerebrovascular accident. Repeat echocardiogram on July 14 showed an e jection fraction of 40% while he was on the Impella. He was extubated but had to be reintubated because of respiratory distress. He has no evidence of ventricular ectopic activity. Medications: Amiodarone, aspirin, Lipitor 40 mg daily, Lasix 20 mg IV every 12 hours, Entresto 24-26 mg daily, Flomax, Brilinta 90 mg twice a day PHYSICAL EXAMINATION: Blood pressure 116/60 heart rate 110, intubated and sedated LUNGS: Clear to auscultation HEART: Irregular rate and rhythm, S1, S2. No S3. Systolic ejection murmur ABDOMEN: Soft, obese, no organomegaly EXTREMETIES: No edema LAB: Hemoglobin 9.6, platelets count 182, potassium 3.9, BUN 28, creatinine 0.88. Chest x-ray with no clear infiltrate IMPRESSION: 1. Cardiac arrest with severe cardiomyopathy and cardiogenic shock status post Impella 2. Severe triple-vessel disease, status post stenting of the LAD scheduled to undergo stenting of the left circumflex and RCA today by Dr. Abrams 3. Paroxysmal atrial fibrillation alternating with sinus bradycardia 4. Evidence suggests right sided weakness related to a cerebrovascular accident 5. Respiratory failure with reintubation 6. Acute renal injury, resolved 7. History of hypertension PLAN: 1. Patient will proceed with PCI today 2. Repeat echocardiogram tomorrow to reevaluate LV systolic function of Impella 3. He will require anticoagulation in view of the recurrent atrial fibrillation and the recent stroke 4. Follow renal functions 5. Depending on his progress further recommendations will be made, prognosis remains guarded Objective - Vital Signs Vital signs: Vital Signs Temp 97.9 F 07/20/24 04:00 Pulse 52 L 07/20/24 06:00 Resp 22 07/20/24 06:00 BP 116/51 07/20/24 06:00 Pulse Ox 98 07/20/24 06:00 FiO2 40 07/20/24 05:01 Intake & Output 07/19/24 07/20/24 07/20/24 18:59 06:59 18:59 Intake Total 855.291 524.385 Output Total 950 865 Balance -94.709 -340.615 Weight 111.8 kg Intake: IV 240 350 Sodium Chloride 0.9% 1, 240 200 000 ml @ 20 mls/hr IV . Q24H [facility] Rx#:[id number] Sodium Chloride 0.9% 1, 150 000 ml In Empty Bag 1 bag @ 75 mls/hr IV .[id number] [facility] Rx#:[id number] Intake, IV Titration 375.291 174.385 Amount propofoL 1,000 mg In 375.291 174.385 Empty Bag 1 bag @ 15 MCG/ KG/MIN 9.324 mls/hr IV . [id number] [facility] Rx#:[id number] Oral 240 Output: Urine 950 865 Other: Voiding Method Indwelling Catheter Indwelling Catheter ABP, PAP, CO, CI - Last Documented Arterial Blood Pressure 139/39 - Labs CBC & Chem 7: 07/20/24 05:38 07/20/24 05:38 Labs: Abnormal Lab Results - Last 24 Hours (Table) 07/19/24 07/19/24 07/20/24 Range/Units 08:50 23:24 05:06 Hgb (13.0-17.5) gm/dL Hct (39.0-53.0) % MCV (80.0-100.0) fL MCH (25.0-35.0) pg RDW (11.5-15.5) % Neutrophils # (1.3-7.7) k/uL ABG pH 7.50 H (7.35-7.45) ABG pO2 82 L (83-108) mmHg ABG HCO3 27 H (21-25) mmol/L ABG Total CO2 28 H (19-24) mmol/L Hemoglobin 9.2 L (13.0-17.5) gm/dL Potassium 3.4 L (3.5-5.1) mmol/L BUN (9-20) mg/dL POC Glucose (mg/dL) 115 H (70-110) mg/dL Calcium (8.4-10.2) mg/dL 07/20/24 07/20/24 Range/Units 05:38 05:38 Hgb 9.6 L (13.0-17.5) gm/dL Hct 30.1 L (39.0-53.0) % MCV 67.0 L (80.0-100.0) fL MCH 21.3 L (25.0-35.0) pg RDW 17.2 H (11.5-15.5) % Neutrophils # 7.9 H (1.3-7.7) k/uL ABG pH (7.35-7.45) ABG pO2 (83-108) mmHg ABG HCO3 (21-25) mmol/L ABG Total CO2 (19-24) mmol/L Hemoglobin (13.0-17.5) gm/dL Potassium (3.5-5.1) mmol/L BUN 28 H (9-20) mg/dL POC Glucose (mg/dL) (70-110) mg/dL Calcium 7.8 L (8.4-10.2) mg/dL Microbiology - Last 24 Hours (Table) 07/16/24 09:33 Blood Culture - Preliminary Blood
--- NOTE | 2024-07-20 09:12 | XR ---
EXAMINATION TYPE: XR chest 1V portable DATE OF EXAM: 07/20/2024 5:13 AM COMPARISON: Chest radiographs from CLINICAL INDICATION: Male, 78 years old with history of Tube placement; [facility] TECHNIQUE: XR chest 1V portable Frontal view of the chest. FINDINGS: Lungs/Pleura: No evidence of focal consolidation or pneumothorax. Blunting of the costophrenic angles is present. Pulmonary vascularity: Unremarkable. Heart/mediastinum: Cardiomediastinal silhouette is unremarkable. Musculoskeletal: No acute osseous pathology. There is fixation hardware in the lower cervical spine. Other findings: None Lines/Tubes: Endotracheal tube with distal tip 1.9 cm above the santino. Nasogastric tube with its distal tip and side-port projecting under the diaphragm. IMPRESSION: 1. Support tubes in appropriate position. 2. Suspected layering bilateral pleural effusions. [facility], , 07/20/2024 9:10 AM
[2024-07-20] MEDS: METOPROLOL TARTRATE 5 MG/5 ML VIAL IVP STA (10:20)
--- NOTE | 2024-07-20 11:23 | P.PN ---
Subjective Progress Note Date: 07/20/24 Hospital course: Patient is a 78-year-old male with PMH of rheumatoid arthritis, hypertension and BPH was brought to the emergency department via EMS for cardiopulmonary arrest. His initial laboratory evaluation shows WBC of 19.7, hemoglobin 14.6, MCV of 74.8, platelet count 2 8, sodium 138, potassium 4.3, chloride 117, bicarb 13, BUN 18, creatinine 1.8. His cardiac troponin has been trending upward from 0.588--->14.9. Patient was recently seen at the hospital for the complaint of chest pain. Patient was diagnosed with type II IA slightly with elevated troponins likely secondary to COVID-19 pneumonitis. Echocardiogram showed LVEF of 55% and moderate pulmonary hypertension. Viral panel negative. Chest x-ray interpreted independently shows diffuse patchy infiltrate with groundglass opacities and bilateral pleural effusion. Brain CT shows no acute intracranial process. Chest CTA is negative for pulmonary embolism and patchy opacities throughout both lungs with small bilateral pleural effusions. EKG interpreted independently shows sinus bradycardia with a regular branch block. T wave inversions in anteroseptal and lateral leads. Echocardiogram shows LVEF of 25 to 30% and ischemic cardiomyopathy with apical hypokinesis. Repeat brain CT on 07/15/2024 shows concern for suspected left parietal subacute CVA compared to previous brain CT. CAT scan of the brain was repeated again on 07/17/2024 which at this time shows no acute intracranial process. Patient was taken [facility] on 06/16/2024 with a successful stenting to mid and proximal LAD. Impella was taken out. Patient was extubated and was able to maintain his mean arterial pressure without Impella and pressors. Patient had worsening respiratory status. Patient reintubated. Admission course complicated with A- fib with RVR and patient started on amiodarone drip. Subjective: Patient seen and examined today. Patient went into A-fib with RVR overnight, started on amiodarone drip. Left heart cath today. Currently on propofol 15 mcg/kg/h Objective: Vital signs reviewed General: Intubated and sedated HEENT: normocephalic, atraumatic, no tracheal deviation Respiratory: Bilateral rhonchi, mechanically ventilated CVS: perfusing all extremities, no distal gangrene, trace pitting edema GI: soft, ND : no SPT, no CVAT, heard is present Neuro: Sedated Data reviewed today: Pertinent Labs: WBC 10.5, hemoglobin 9.6, platelet count 182, sodium 138, potassium 3.9, creatinine 0.80, magnesium 2.0, glucose 103 Pertinent imaging: Chest x-ray independently interpreted, shows bilateral interstitial opacities Assessment/Plan: #Out of the hospital cardiopulmonary arrest #NSTEMI status post mid and proximal LAD Stents #Cardiogenic Shock, resolved, status post Impella and pressors #ischemic cardiomyopathy #Recent history of atypical chest pain and COVID-19 pneumonitis #Acute encephalopathy, likely metabolic # Subacute left parietal CVA #Paroxysmal A-fib with RVR Pulmonology note reviewed, patient reintubated on 07/18/2024 due to increased dyspnea; recs appreciated Continue with dual antiplatelet therapy: Aspirin 81 mg p.o. daily and Brilinta 90 mg p.o. twice daily Atorvastatin 40 mg p.o. on Entresto 24-26 mg twice daily, Cardiology note reviewed, PCI to RCA today and repeat echocardiogram likely tomorrow; recs appreciated Continue with amiodarone drip Patient will likely need to be put on anticoagulation for paroxysmal A-fib with the RVR, also gave a push of 5 mg IV metoprolol today Continue on IV furosemide 20 mg every 12 hours, monitor electrolytes Neurology following, likely had watershed infarct due to cardiac arrest PT/OT/speech therapy once patient is extubated #Bandemia, likely reactive to above, resolved #Normocytic anemia secondary to above -Improving #Anion gap metabolic acidosis secondary to lactic acid, resolved #Euthyroid sick syndrome secondary above TSH 7.63, free T4 - 0.8 #Hypermagnesemia, resolved Chronic conditions: BPH: Resume Flomax Hypertension: Hold nifedipine DVT prophylaxis: Lovenox 40 mg subcu daily CODE STATUS: Full code Anticipated discharge place: Pending clinical course I have seen and evaluated the patient today. Discussed with the resident and agree with the residents finding and plan as documented in the resident's note. Changes highlighted in blue font. Objective - Vital Signs Vital signs: Vital Signs Temp 99.9 F H 07/20/24 08:00 Pulse 80 07/20/24 11:00 Resp 20 07/20/24 11:00 BP 117/56 07/20/24 11:00 Pulse Ox 97 07/20/24 11:00 FiO2 40 07/20/24 10:54 Intake & Output 07/19/24 07/20/24 07/20/24 18:59 06:59 18:59 Intake Total 855.291 524.385 960.792 Output Total 950 865 650 Balance -94.709 -340.615 310.792 Weight 111.8 kg Intake: IV 240 350 375 Sodium Chloride 0.9% 1, 240 200 000 ml @ 20 mls/hr IV . Q24H [facility] Rx#:[id number] Sodium Chloride 0.9% 1, 150 375 000 ml In Empty Bag 1 bag @ 75 mls/hr IV .[id number] [facility] Rx#:[id number] Intake, IV Titration 375.291 174.385 525.792 Amount Amiodarone 450 mg In 237.505 Dextrose 5% in Water 250 ml @ 0.5 MG/MIN 16.667 mls/hr IV .Q15H [facility] Rx#: [id number] Norepinephrine 8 mg In 2.195 Sodium Chloride 0.9% 250 ml @ 0.19 MCG/KG/MIN 33. 353 mls/hr IV .[id number] [facility] Rx#:[id number] Potassium Chloride 10 meq 200 In Water For Injection 1 100ml.bag @ 100 mls/hr IVPB Q1H [facility] Rx#: [id number] propofoL 1,000 mg In 375.291 174.385 86.092 Empty Bag 1 bag @ 15 MCG/ KG/MIN 9.324 mls/hr IV . [id number] [facility] Rx#:[id number] Oral 240 Other 60 Output: Urine 950 865 650 Other: Voiding Method Indwelling Catheter Indwelling Catheter ABP, PAP, CO, CI - Last Documented Arterial Blood Pressure 139/39 - Labs CBC & Chem 7: 07/20/24 05:38 07/20/24 05:38 Labs: Abnormal Lab Results - Last 24 Hours (Table) 07/19/24 07/20/24 07/20/24 Range/Units 23:24 05:06 05:38 Hgb (13.0-17.5) gm/dL Hct (39.0-53.0) % MCV (80.0-100.0) fL MCH (25.0-35.0) pg RDW (11.5-15.5) % Neutrophils # (1.3-7.7) k/uL ABG pH 7.50 H (7.35-7.45) ABG pO2 82 L (83-108) mmHg ABG HCO3 27 H (21-25) mmol/L ABG Total CO2 28 H (19-24) mmol/L Hemoglobin 9.2 L (13.0-17.5) gm/dL BUN 28 H (9-20) mg/dL POC Glucose (mg/dL) 115 H (70-110) mg/dL Calcium 7.8 L (8.4-10.2) mg/dL 07/20/24 Range/Units 05:38 Hgb 9.6 L (13.0-17.5) gm/dL Hct 30.1 L (39.0-53.0) % MCV 67.0 L (80.0-100.0) fL MCH 21.3 L (25.0-35.0) pg RDW 17.2 H (11.5-15.5) % Neutrophils # 7.9 H (1.3-7.7) k/uL ABG pH (7.35-7.45) ABG pO2 (83-108) mmHg ABG HCO3 (21-25) mmol/L ABG Total CO2 (19-24) mmol/L Hemoglobin (13.0-17.5) gm/dL BUN (9-20) mg/dL POC Glucose (mg/dL) (70-110) mg/dL Calcium (8.4-10.2) mg/dL Microbiology - Last 24 Hours (Table) 07/16/24 09:33 Blood Culture - Preliminary Blood
[2024-07-20] MEDS: ATORVASTATIN 80 MG TAB PO STA (11:36)
[2024-07-20] MEDS: ASPIRIN 81 MG PO ONE ×2 (11:44→11:45)
--- NOTE | 2024-07-20 12:20 | P.PN ---
Subjective Progress Note Date: 07/20/24 Principal diagnosis: Cardiac arrest and acute hypoxic respiratory failure This is a 78-year-old male patient with a history of rheumatoid arthritis, hypertension, BPH. He was recently here in May for atypical chest pain and COVID-19 pneumonitis. Discharged home on May 15, 2024. Since that time he had been doing well. Pain the patient was having a 2 to 3-day history of worsening shortness of breath. He was active yesterday and cleaning out his garage and did complain of shortness of breath and some chest discomfort. He developed worsening shortness of breath throughout the night. EMS was called and the arrival the patient had collapse. He was pulseless and CPR was started taking approximately 5 minutes until return of spontaneous circulation. He was brought in and being assisted with a bag valve mask device and a pulse ox of 74 and then intubated in the emergency department. He was brought up to the intensive care unit. He is currently intubated, sedated on the mechanical ventilator at a rate of 24, tidal volume 450, FiO2 90% and a PEEP of 10. Blood gases had revealed a PaO2 of 70, pCO2 of 62 and a pH of 7.14 on 100% FiO2. He is on fentanyl at 1.5 mcg/kg/h. He is currently on a heparin drip per weight- based protocol. Norepinephrine at 13.5 mcg/min. Propofol at 30 mcg/kg/min. CT scan of the brain revealed no acute findings. CT angiogram revealed no evidence of pulmonary embolism. There is small bilateral effusions. Some patchy airspace opacity/consolidation throughout both lungs. Mild groundglass opacities. White count 19.7. Hemoglobin 14.6. Platelets 208. Sodium 138. Potassium 4.3. Bicarb 13. BUN 18. Creatinine 1.13. Glucose 313. Troponin 0.588. proBNP 2770. TSH 7.36. Viral screen is negative. The patient is seen today July 12, 2024 in follow-up in the intensive care unit. He remains intubated sedated on the mechanical ventilator. Currently in assist-control mode with a rate of 30, tidal volume 450, FiO2 40% and a PEEP of 10. Morning blood gases revealed a PaO2 of 163, pCO2 of 26 and a pH of 7.49 and 50% FiO2. The PEEP will be decreased to 5. He is currently on cefazolin. Remains on bronchodilators. He is continued on a heparin drip per weight-based protocol. Norepinephrine at 0.03 mcg/kg/min. Propofol at 35 mcg/kg/min. Fentanyl drip at 1.25 mcg/kg/h. White count 9.6. Hemoglobin 11.4. Platelets 166. Sodium 136. Potassium 3.9. Bicarb 18. BUN 29. Creatinine 1.47. Glucose 114. Continue tube feedings of vital AF at a rate of 10 with a goal of 57. Will be on hold for cardiac catheterization today 07/13/2024, the patient is being seen for a follow-up. The patient remains intubated on the mechanical ventilator. He requires mechanical support for his cardiogenic shock postcardiac arrest and the patient is an Impella with a P7 support and a 3.1 L/min of augmentation. The patient remains on sedatives and the patient is currently on propofol the patient is 0.7. On the mechanical ventilator at a rate of 30, tidal volume of 450, FiO2 40% with PEEP of 5. Blood gas showed pH of 7.46 with a pCO2 of 27 and pO2 of 97. Chest x-ray shows cardiomegaly without any acute abnormalities. Orotracheal tubes are in good perfusion. The patient is currently on KVO IV fluids. The patient is on no pressors and the patient was taken off norepinephrine and is producing adequate amount of urine output in the order of 50 cc an hour. He remains on IV heparin. Creatinine is improved and the patient's creatinine peaked at 1.47 and currently is down to 1.08. He has a left subclavian triple-lumen catheter in place. Library Manager on the case and the patient underwent a cardiac catheterization on 07/12/2024 and the patient was found to have extremely calcified right and left coronary system with evidence of triple-vessel coronary artery disease and severely elevated left ventricular end-diastolic pressure. The white cell count at 7.9 with a hemoglobin 10.8 and a platelet count of 123. Sodium levels at 135, bicarbonate 18, BUN 27 with a creatinine of 1.08. LDH lev el is at 984. The echocardiogram was completed and the patient was found to have severe impairment of the LV function with an ejection fraction of 25 to 30%. There is also severe cardiomyopathy with wall motion abnormalities involving the apical area that was quite hypokinetic. The patient remains on aspirin. The patient remains on statins and the patient is currently on Lipitor 40 mg p.o. daily. Remains on IV heparin. He is also on vital AF for enteral feeding and nutritional support. Library Manager on the case. Cardiothoracic surgery was also involved in his care. The patient was deemed a high surgical risk for coronary intervention and bypass. On 07/14/2024, the patient is being seen for a follow-up. The patient remains sedated and the patient is currently on a combination of propofol running at 40 mcg/kg/min and fentanyl at 0.75 mcg/kg/h. The patient remains well sedated on mechanical ventilator and Impella for mechanical support for cardiogenic shock. This morning, the patient's Impella has been switched to P4 support with an augmentation of 2.5 L/min. The patient remains off pressors. Is producing adequate amount of urine output. Fluid balance is +1 L over the past 24 hours. He is hemolyzing and the hemoglobin is currently down to 9.9. Most recent LDH is at 946. At the same time, the patient remains on the mechanical ventilator. He is on assist-control mode with rate of 18, tidal volume of 450, FiO2 40% with a PEEP of 5. The blood gas from today shows a pH of 7.33 with a pCO2 of 41 and pO2 of 97. Chest x-ray is consistent with CHF/increased incisional markings consistent with heart failure. Orotracheal tube is in a good location. The patient has diffuse interstitial pattern bilaterally along with cardiomegaly and he has developed some small bilateral pleural effusions worse on the left. He remains on IV heparin. Remains on enteral feeding for additional support and the patient is currently on vital AF at rate of 35 cc an hour. IV fluids are currently at KVO. The patient's cardiac rhythm is sinus. The white cell count is 6.7 with a hemoglobin 9.9 and a platelet count of 106. The BUN is 17 with a creatinine of 0.8 and a sodium levels at 137, bicarb is at 22. 07/15/2024, the patient is being seen for a follow-up. The patient has signs of anoxic encephalopathy. The patient was given sedation holiday yesterday and he did not demonstrate adequate neurologic recovery. It was noted that he was not moving his right side effectively compared to the left. Based on that, the patient was placed back on propofol which is currently running at 40 mcg/kg/min. Attempts to wean off his Impella failed yesterday the patient became hypo tensive. The patient was given IV fluids and norepinephrine and the patient is currently off norepinephrine. He has Impella is augmenting at P4 level with 2.5 L/min augmentation. Fluid balance is +600 cc over the past 24 hours and the patient is producing urine output in the order of 30 to 40 cc an hour. No diuretics for now. Chest x-ray still showing CHF and bilateral pleural effusion right more than left. Remains on mechanical ventilator, assist-control mode with rate of 16, tidal volume of 450, FiO2 40% with a PEEP of 5. pH is 7.34 with a pCO2 of 43 and pO2 of 86. He is doing abdominal breathing and based on that, the patient was switched to pressure control mode of mechanical mario tilation. He is on vital AF at a rate of 35 cc an hour. The white cell count is 7.4, hemoglobin 9.6, his platelet count is at 116. LDH level is 625. Electrolytes are all within normal limits with a BUN of 14 and a creatinine of 0.7. Noted the patient's platelet count has dropped during this current admission and the patient remains on IV heparin. A limited echocardiogram was done yesterday and the patient was found to have impaired LV function with an estimated ejection fraction of around 40%. The patient also had segmental wall motion abnormalities. There was moderate LV dysfunction based on the echocardiogram. 07/16/2024, the patient is being seen for a follow-up. Events from yesterday was noted. Following a failed sedation holiday, the patient was noted to have some right-sided weakness. Based on that, a CAT scan of the brain was done and it showed a low-attenuation area in the left parietal lobe suspecting an evolving stroke. Another sedation holiday will be given today. Meanwhile, the patient will be kept on Impella pending cardiac catheterization and coronary inter vention as planned by cardiology. The patient is currently on a pressure control mode of mechanical ventilation, at rate of 18, pressure control of 20, FiO2 of 40% with a PEEP of 5. Blood gas showed a pH of 7.34 with pCO2 49 and pO2 of 92. Remains on IV heparin. He had some episodic hematuria but subsided. Fluid balance is -687 cc over the past 24 hours. Patient was receiving enteral feeding for nutritional support and currently it is on hold in preparation for cardiac catheterization. He was receiving vital AF at rate of 35 cc an hour. IV fluids are currently at KVO. The patient remains on IV Lasix. Meanwhile, the white cell count is 5.9, hemoglobin is 8.9 and a platelet count is 20. The patient's BUN is 15 with a creatinine of 0.7. Serum bicarb is at 28. Sodium levels at 137 and a potassium level is at 4.2. The patient remains on Impella with P4 support and 2.5 liters per minute of cardiac augmentation. The renal function remains stable with a BUN of 15 and a creatinine of 0.7. The LDH level is 511. Chest x-ray findings from today shows CHF, findings are essentially stable. He is afebrile. 07/17/2024, patient is being seen for a follow-up. The patient underwent a cardiac catheterization yesterday and the patient underwent successful stenting of the proximal and mid LAD. Following that, the Impella was discontinued and the patient was brought back to the intensive care unit. This morning, the patient remains sedated on propofol which is running at 25 mcg/kg/min and fentanyl at 0.5 mcg/kg/h. He remains on assist-control mode of mechanical ventilation. Pressure control cycled, with a pressure control of 20, rate of 16, FiO2 40% with a PEEP of 5. Blood gas showed a pH of 7.4 with a pCO2 40 and pO2 112. Chest x-ray shows cardiomegaly with bilateral pleural effusions and orotracheal tube is in good location. Fluid balance is plus a 1.5 L over the past 24 hours. Patient is on enteral feeding for nutritional support. A repeat CAT scan of the brain and C-spine was done yesterday and the CAT scan showed no acute intracranial process. Chronic appearing periventricular white matter ischemic changes were seen and there were less pronounced on the follow-up CAT scan. The white cell count of 5.5, hemoglobin is 8.7, platelet count is 97, BUN is at 16 with a creatinine of 0.7, bicarb is 23 and sodium levels at 135. LFTs are within normal limits. Afebrile. Hemodynamically stable on no pressors. Off the nitroglycerin drip for now. Cardiac rhythm is sinus bradycardia in the mid 50s. 07/18/2024, the patient was extubated and the patient was awake and alert and communicating. Earlier this morning, the patient was on oxygen at 2 L/min nasal cannula and chest x-ray was still showing CHF and bilateral pleural effusion and pulm vessel congestion. He was hemodynamically stable. He was off pressors. He had no complaints. As such, the patient was started on Entresto 24/25 1 tablet a day and the patient was kept on a combination of aspirin and Brilinta. The patient was also receiving Lasix 20 mg IV every 12 hours. The fluid balance is -2 L over the past 24 hours. On neurologic exam, the patient was unable to move his right upper extremity and there is an obvious right lower extremity weakness consistent with an acute CVA. Motor function on the left side was adequate at this point. Following our rounds, the patient became acutely short of breath and he became tachypneic and severe respiratory distress. He was placed on a BiPAP and the blood gas showed severe respiratory acidosis and a chest x-ray was consistent with acute pulmonary edema. Based on that, I had to intubate the patient and I placed him on the mechanical ventilator. Initial blood gases post mechanical ventilation showed a pH of 7.17 with a pCO2 of 66 and pO2 of 151 and based on that, increase the tidal volume to 450, increase the rate up to 28 and dropped FiO2 down to 80%. He remained hemodynamically stable. Slightly hypertensive. BUN is 19 with a creatinine of 0.7. Sodium levels at 139. WBC count 6.4 with a hemoglobin 8.7 and a platelet count of 107. Post intubation chest x-ray was consistent with pulmonary edema. ET tube noted to be pushed in by another 2 cm. He is currently on propofol which is running at 40 mcg/kg/min, calm and comfortable. On 07/19/2024, the patient is being seen for a follow-up. The patient remains intubated on the mechanical ventilator earlier this morning the patient was on propofol running at 50 mcg/kg/min. He failed extubation due to an acute pulmonary edema and the patient had to be reintubated. His current cardiac rhythm is sinus bradycardia. He also has conduction delay and widened QRS p robably a bundle branch block pattern. This was present since his admission. He was having few episodes of bradycardia and based on that the beta-blockers were placed on hold. He is still on IV Lasix 20 mg every 12 hours. Fluid balance is -2 L over the past 24 hours. He is on assist-control mode with rate of 28, tidal volume of 450, FiO2 of 60% with a PEEP of 5. Blood gas showed pH of 7.51 with a pCO2 of 33 and pO2 of 120. Chest x-ray still showing pulmonary edema. The patient was started on Entresto. He was started also on enteral feeding for nutritional support and the patient is on vital AF. Afebrile. No other significant issues overnight. Cardiology remains on the case. Remains on aspirin and Brilinta. Patient was evaluated today at 07/20/2024, remains in the ICU, intubated and mechanically ventilated, patient is on assist-control rate of 22 tidal volume 450 FiO2 40% and PEEP of 5 ABG showed a pO2 of 82 pCO2 35 pH of 7.50 FiO2 was cut down to 20. Increase flow rate to 60 L/min. Patient is on amiodarone at 0.5 mg/min IV fluid is running at 75 cc/h patient is scheduled to undergo repeat cardiac catheterization today. His last ejection fraction on echocardiogram was 15 to 20%. Patient failed weaning at 1 point as he developed pulmonary edema shortly after he was extubated. Patient also had a previous stent of the LAD on his initial admission he had an Impella device placed and has been removed patient continues to have right-sided weakness. Intermittently the patient is in atrial fibrillation continues on amiodarone. Again he scheduled to have cardiac catheterization today. Chest x-ray continues to show evidence of pulmonary edema. WBC count is 10.5 hemoglobin is 9.6 basic metabolic profile is normal and renal profile is normal. Objective - Vital Signs Vital signs: Vital Signs Temp 99.9 F H 07/20/24 08:00 Pulse 96 07/20/24 11:30 Resp 20 07/20/24 11:30 BP 106/86 07/20/24 11:30 Pulse Ox 99 07/20/24 11:30 FiO2 40 07/20/24 12:00 Intake & Output 07/19/24 07/20/24 07/20/24 18:59 06:59 18:59 Intake Total 855.291 207.258 3440.792 Output Total 950 865 700 Balance -94.709 -340.615 365.792 Weight 111.8 kg 111.8 kg Intake: IV 240 350 450 Sodium Chloride 0.9% 1, 240 200 000 ml @ 20 mls/hr IV . Q24H [facility] Rx#:[id number] Sodium Chloride 0.9% 1, 150 450 000 ml In Empty Bag 1 bag @ 75 mls/hr IV .[id number] [facility] Rx#:[id number] Intake, IV Titration 375.291 174.385 525.792 Amount Amiodarone 450 mg In 237.505 Dextrose 5% in Water 250 ml @ 0.5 MG/MIN 16.667 mls/hr IV .Q15H [facility] Rx#: [id number] Norepinephrine 8 mg In 2.195 Sodium Chloride 0.9% 250 ml @ 0.19 MCG/KG/MIN 33. 353 mls/hr IV .[id number] [facility] Rx#:[id number] Potassium Chloride 10 meq 200 In Water For Injection 1 100ml.bag @ 100 mls/hr IVPB Q1H [facility] Rx#: [id number] propofoL 1,000 mg In 375.291 174.385 86.092 Empty Bag 1 bag @ 15 MCG/ KG/MIN 9.324 mls/hr IV . [id number] [facility] Rx#:[id number] Oral 240 Other 90 Output: Urine 950 865 700 Other: Voiding Method Indwelling Catheter Indwelling Catheter Indwelling Catheter ABP, PAP, CO, CI - Last Documented Arterial Blood Pressure 139/39 - Exam GENERAL EXAM: Revealed a 78-year-old male intubated, mechanically ventilated, sedated, on propofol and he is also on amiodarone drip as well as IV fluid, not requiring any pressors at this point. HEAD: Normocephalic. EYES: Normal reaction of pupils, equal size. NOSE: Clear with pink turbinates. THROAT: Dry mucous membranes, endotracheal tube is intact. NECK: No masses, no JVD. CHEST: No chest wall deformity. LUNGS: Crackles and rhonchi noted bilaterally. CVS: Distant S1 and S2 normal with no audible murmur, regular rhythm. ABDOMEN: No hepatosplenomegaly, normal bowel sounds, no guarding or rigidity. SKIN: No rashes CENTRAL NERVOUS SYSTEM: Could not assess, patient is fully sedated EXTREMITIES: No clubbing, trace of bipedal edema, no cyanosis. - Labs CBC & Chem 7: 07/20/24 05:38 07/20/24 05:38 Labs: Abnormal Lab Results - Last 24 Hours (Table) 07/19/24 07/20/24 07/20/24 Range/Units 23:24 05:06 05:38 Hgb (13.0-17.5) gm/dL Hct (39.0-53.0) % MCV (80.0-100.0) fL MCH (25.0-35.0) pg RDW (11.5-15.5) % Neutrophils # (1.3-7.7) k/uL ABG pH 7.50 H (7.35-7.45) ABG pO2 82 L (83-108) mmHg ABG HCO3 27 H (21-25) mmol/L ABG Total CO2 28 H (19-24) mmol/L Hemoglobin 9.2 L (13.0-17.5) gm/dL BUN 28 H (9-20) mg/dL POC Glucose (mg/dL) 115 H (70-110) mg/dL Calcium 7.8 L (8.4-10.2) mg/dL 07/20/24 Range/Units 05:38 Hgb 9.6 L (13.0-17.5) gm/dL Hct 30.1 L (39.0-53.0) % MCV 67.0 L (80.0-100.0) fL MCH 21.3 L (25.0-35.0) pg RDW 17.2 H (11.5-15.5) % Neutrophils # 7.9 H (1.3-7.7) k/uL ABG pH (7.35-7.45) ABG pO2 (83-108) mmHg ABG HCO3 (21-25) mmol/L ABG Total CO2 (19-24) mmol/L Hemoglobin (13.0-17.5) gm/dL BUN (9-20) mg/dL POC Glucose (mg/dL) (70-110) mg/dL Calcium (8.4-10.2) mg/dL Microbiology - Last 24 Hours (Table) 07/16/24 09:33 Blood Culture - Preliminary Blood Assessment and Plan Assessment: Impression: Status post cardiac arrest, [id number] CPR, downtime about 5 minutes. Acute hypoxic respiratory failure secondary to above. Patient has developed extensive pulmonary edema secondary to LV dysfunction secondary to ischemic cardiomyopathy. Pulmonary edema with bilateral pleural effusions, currently on IV Lasix with adequate urine output. Acute non-ST segment elevation myocardial infarction, status post cardiac catheterization indicating triple-vessel coronary artery disease, status post cardiac catheterization and stenting x 2 of the mid and proximal LAD and the patient is currently on a combination of aspirin and Brilinta and the Impella has been discontinued Cardiogenic shock, required Impella device, for a brief period of time Acute CVA with motor weakness in the right side, right upper extremity more than right lower extremity. Acute kidney injury, recovered and the patient is producing adequate amount of urine output Recent discharge in May 2024 for atypical chest pain and COVID-19 infection/pneumonitis Rheumatoid arthritis Hypertension Benign prostatic hyperplasia Thrombocytopenia, improving Chronic anemia Recommendation: Continue ventilatory support Continue amiodarone for cardiac arrhythmia/atrial fibrillation Continue diuretics, resume Lasix today after cardiac catheterization Proceed with cardiac catheterization as scheduled today Continue to monitor urine output Continue Entresto Use pressors and or inotropes if necessary. Continue nutritional support presently on vital AF 1.2 Clearly the patient is not ready for any form of weaning at this point. Chest x-ray is quite abnormal and he does have significant pulmonary edema Condition remains critical Continue GI and DVT prophylaxis Patient is critically ill Critical care time is over 30 minutes Time with Patient: Greater than 30
[2024-07-20] MEDS: LIDOCAINE 1% INJ 10MG/ML (20 ML MDV) SQ ONE (12:21)
[2024-07-20] MEDS: VERAPAMIL SYRINGE (5 MG/10 ML) INTRAARTER ONE (12:24)
[2024-07-20] MEDS: HEPARIN SODIUM 1,000 UN/ML (10ML VL) IVP ONE ×3 (12:27→13:04)
[2024-07-20] MEDS: METOPROLOL TARTRATE 5 MG/5 ML VIAL IVP ONE (12:33)
[2024-07-20] MEDS: NITROGLYCERIN 1000MCG/10ML SYRINGE INTRACORON ONE ×2 (12:47→13:10)
[2024-07-20] MEDS ORDERED: RX INFO: IV CONTRAST WAS GIVEN 1 EACH MISC MISCELLANE PRN (13:14)
[2024-07-20] MEDS ORDERED: NITROGLYCERIN SL TABS 0.4 MG TAB SUBLINGUAL PRN (13:14)
[2024-07-20] MEDS ORDERED: ATROPINE SULFATE 0.1 MG/ML 10ML SYRINGE IV PRN (13:14)
[2024-07-20] MEDS: IOPAMIDOL-370 100ML BTL INJ ONE (13:17)
[2024-07-20] MEDS: IV FLUID CONTINUATION 200 ML IV ONE (13:20)
[2024-07-20] MEDS: NOREPINEPHRINE 8 MG in SODIUM CHLORIDE 0.9% 250 ML IV ONE (13:42)
[2024-07-20 14:03] LABS: Glucose,Whole Blood 110 mg/dL (70-110)
[2024-07-20] MEDS: AMIODARONE 450 MG in DEXTROSE 5% IN WATER 250 ML IV SCH (17:16)
[2024-07-20] MEDS: METOPROLOL TARTRATE 50 MG TAB PO SCH (17:31)
[2024-07-20 17:41] LABS: Glucose,Whole Blood 111 mg/dL (70-110)
[2024-07-20 19:47] LABS: Glucose,Whole Blood 121 mg/dL (70-110)
--- NOTE | 2024-07-20 21:32 | P.PCN ---
Date of Procedure: 07/20/24 Operative Findings: Cardiac catheterization and percutaneous coronary intervention Performing physician Jack Abrams MD Procedure performed Successful PCI of the mid RCA using 3.25 x 28 mm Xience SHANKAR with an excellent angiographic results and reduction of stenosis from 99% to 0% Successful PCI of OM1 of the LCx using 3.0 x 23 mm Xience SHANKAR with an excellent angiographic results and reduction of stenosis from 90% to 0% Selective right and left coronary angiogram and left heart catheterization Adjunctive use of IVUS Selective right common femoral artery angiogram Indication Acute non-ST elevation myocardial infarction. Please refer to prior heart catheterization and PCI of the LAD was performed before Complications None Level of sedation Moderate with sedation length of 64 minutes Procedure description After obtaining informed consent the patient was brought intubated from the intensive care unit to the cardiac Ride Attendant. Subsequently the right common femoral artery was cannulated using micropuncture technique the micropuncture wire passed easily then I placed a 6 Dutch 11 cm sheath at the right common femoral artery. Anticoagulation was initiated using heparin with continuous ACT monitoring. Subsequently I did engage the RCA using an AL 0.75 guiding catheter. I wired the right coronary artery and crossed a tight lesion in the mid RCA a whisper wire with a backup support of microcatheter. Subsequently the microcatheter was advanced all the way to the distal right coronary artery then I did exchange my whisper wire into run-through wire. Intravascular ultrasound was performed and showed diameter between 3 to 3.25 mm with calcified vessel. Balloon angioplasty was performed using 2.5 mm noncompliant balloon with the artery open to the balloon and subsequently I deployed a 3.25 x 28 mm stent which was postdilated using 4 mm balloon. Final angiogram showed excellent angiographic results. Subsequently I did engage the left main using an EBU 3.75 guiding catheter. I did wire the left circumflex/OM1 using a whisper wire and I did wire the left circumflex OM 2 using a Runthrough wire. Intravascular again ultrasound was performed and showed a diameter around 3 mm. Predilatation was performed using 2.5 mm noncompliant balloon before I deployed a 3.0 x 18 mm stent where the stent was positioned under fluoroscopy guidance and deployed under fluoroscopy guidance as well. Final angiogram showed good angiographic results. I did an angiogram of the left coronary system as well which showed patent stent in the left anterior descending artery Finally left heart catheterization was performed using a pigtail catheter which showed an LVEDP of about 10 mmHg with no gradient was identified across the aortic valve Conclusion Successful PCI of the mid RCA as described above Successful PCI of OM1 as described above Patent stent in the LAD Normal left-sided filling pressure Postprocedure management Dual antiplatelet therapy for at least 12 months Aggressive cholesterol control Maximize medical treatment for cardiomyopathy Follow-up with the patient
[2024-07-20] MEDS: POTASSIUM CHLORIDE ER 20 MEQ TAB.ER PO SCH (22:38)
[2024-07-20 23:47] LABS: Glucose,Whole Blood 120 mg/dL (70-110)
[2024-07-21] MEDS: METOPROLOL TARTRATE 50 MG TAB PO STA (01:12)
[2024-07-21 05:10] LABS: ABG Base Excess 2.7 mmol/L; ABG HCO3 27 mmol/L (21-25); ABG Oxygen Saturation 96.7 % (94-97); ABG PCO2 38 mmHg (35-45); ABG PH 7.46 (7.35-7.45); ABG PO2 86 mmHg (83-108); ABG TCO2 28 mmol/L (19-24); Allen Test Performed? Yes
[2024-07-21 05:24] LABS: Glucose,Whole Blood 140 mg/dL (70-110)
[2024-07-21 06:29] LABS: Anisocytosis Slight; Basophils % (A) 0 %; Eosinophils # (A) 0.5 k/uL (0-0.7); Eosinophils % (A) 4 %; HCT 33.1 % (39.0-53.0); HGB 9.8 gm/dL (13.0-17.5); Hypochromasia Moderate; Lymphocytes # (A) 1.4 k/uL (1.0-4.8); Lymphocytes % (A) 12 %; MCH 20.4 pg (25.0-35.0); MCHC 29.7 g/dL (31.0-37.0); MCV 68.6 fL (80.0-100.0); Mean Platelet Volume 7.6; Microcytosis Marked; Monocytes # (A) 0.6 k/uL (0-1.0); Monocytes % (A) 5 %; Neutrophils # (A) 9.1 k/uL (1.3-7.7); Neutrophils % (A) 77 %; Platelet Count 254 k/uL (150-450); Poikilocytosis Slight; RBC 4.83 m/uL (4.30-5.90); RDW 17.1 % (11.5-15.5); WBC 11.8 k/uL (3.8-10.6)
[2024-07-21 06:46] LABS: African American GFR (CKD) 89 (>60 ml/min/1.73 sqM); Anion Gap 3 mmol/L; Blood Urea Nitrogen 25 mg/dL (9-20); Calcium 7.7 mg/dL (8.4-10.2); Carbon Dioxide 27 mmol/L (22-30); Chloride 108 mmol/L (98-107); Glucose 123 mg/dL (74-99); Non-African American GFR(CKD) 77 (>60 ml/min/1.73 sqM); Potassium 3.9 mmol/L (3.5-5.1); Sodium 138 mmol/L (137-145)
--- NOTE | 2024-07-21 07:02 | XR ---
EXAMINATION TYPE: XR chest 1V portable DATE OF EXAM: 07/21/2024 5:29 AM COMPARISON: Chest radiograph from one day prior. CLINICAL INDICATION: Male, 78 years old with history of Tube placement; TECHNIQUE: XR chest 1V portable Frontal view of the chest. FINDINGS: Lungs/Pleura: No evidence of focal consolidation or pneumothorax. Blunting of the costophrenic angles is present. Pulmonary vascularity: Unremarkable. Heart/mediastinum: Cardiomediastinal silhouette is unremarkable. Musculoskeletal: No acute osseous pathology. Other findings: None Lines/Tubes: Endotracheal tube with distal tip 3.7 cm above the santino. Nasogastric tube with side-port projecting over the distal esophagus. Left central venous catheter with distal tip at the cavoatrial junction. IMPRESSION: 1. Endotracheal tube in appropriate position. 2. Nasogastric tube should be advanced 6 cm for optimal placement. 3. Suspected layering bilateral pleural effusions. [facility], , 07/21/2024 6:59 AM
[2024-07-21] MEDS ORDERED: BENZOCAINE SPRAY 1 CAN TOPICAL PRN (07:36)
[2024-07-21] MEDS ORDERED: MIDAZOLAM 2 MG/2 ML VIAL IV PRN (07:36)
[2024-07-21] MEDS ORDERED: fentaNYL (PF) 50 MCG/ML 5 ML AMP IVP PRN (07:36)
--- NOTE | 2024-07-21 07:42 | P.PN ---
Subjective Progress Note Date: 07/21/24 PROGRESS NOTE The patient is a 78-year-old male who was admitted to the hospital on July 11 with cardiac arrest, severe cardiomyopathy and severe triple-vessel disease. He was evaluated by Dr. Abrams, underwent an Impella placement. His echocardiogram on presentation showed an ejection fraction 25 to 30% with anterior apical hypokinesis. On July 16 he underwent stenting of the LAD with removal of the Impella CP. He remains intubated, sedated. He is having episodes of paroxysmal atrial fibrillation with sinus bradycardia at times. He has good urine output. He is scheduled to undergo PCI of the RCA and the left circumflex today. He is on no vasopressors. He was found to have right-sided weakness suggestive of a cerebrovascular accident. Repeat echocardiogram on July 14 showed an e jection fraction of 40% while he was on the Impella. He was extubated but had to be reintubated because of respiratory distress. He has no evidence of ventricular ectopic activity. July 21: The patient remains intubated and sedated, in atrial fibrillation. He had episodes of recurrent rapid ventricle response. He is on beta-blockers, well- tolerated. He continues to be on IV amiodarone. He underwent stenting of the left circumflex and RCA yesterday. He is on no vasopressors. His urinary output is good. There is no evidence of ventricular tachycardia. Medications: Amiodarone intravenous, aspirin, Lipitor 40 mg daily, Lasix 20 mg IV every 12 hours, Entresto 24-26 mg daily, Flomax, Brilinta 90 mg twice a day, Lovenox, metoprolol 50 mg twice a day PHYSICAL EXAMINATION: Blood pressure 131/70 heart rate 95, intubated and sedated LUNGS: Clear to auscultation HEART: Irregular rate and rhythm, S1, S2. No S3. Systolic ejection murmur ABDOMEN: Soft, obese, no organomegaly EXTREMETIES: No edema, right groin no hematoma LAB: Hemoglobin 9.8, platelets count 254, potassium 3.9, BUN 25, creatinine 0.95. IMPRESSION: 1. Cardiac arrest with severe cardiomyopathy and cardiogenic shock status post Impella 2. Severe triple-vessel disease, status post stenting of the LAD and stenting of the left circumflex and RCA on July 20 3. Paroxysmal atrial fibrillation alternating with sinus bradycardia, maintaining atrial fibrillation at this time 4. Evidence suggests right sided weakness related to a cerebrovascular accident 5. Respiratory failure with reintubation 6. Acute renal injury, resolved 7. History of hypertension PLAN: 1. Initiate IV heparin 2. Hold feeding tube for now and proceed with CRISTINE guided cardioversion early afternoon today to improve hemodynamics and help with weaning and extubation 3. Repeat echocardiogram 4. Follow renal functions 5. Depending on his progress attempt weaning soon 6. Depending on his progress further recommendations will be made Objective - Vital Signs Vital signs: Vital Signs Temp 100.6 F H 07/21/24 04:00 Pulse 99 07/21/24 06:00 Resp 21 07/21/24 06:00 BP 131/71 07/21/24 06:00 Pulse Ox 96 07/21/24 06:00 FiO2 40 07/21/24 05:01 Intake & Output 07/20/24 07/21/24 07/21/24 18:59 06:59 18:59 Intake Total 1729.206 6609.881 Output Total 985 960 Balance 992.079 64.881 Weight 111.8 kg 107 kg Intake: IV 980 260 Sodium Chloride 0.9% 1, 260 000 ml @ 20 mls/hr IV . Q24H [facility] Rx#:[id number] Sodium Chloride 0.9% 1, 825 000 ml In Empty Bag 1 bag @ 75 mls/hr IV .[id number] [facility] Rx#:[id number] Intake, IV Titration 707.079 214.881 Amount Amiodarone 450 mg In 237.505 Dextrose 5% in Water 250 ml @ 0.5 MG/MIN 16.667 mls/hr IV .Q15H [facility] Rx#: [id number] Norepinephrine 8 mg In 14.484 38.035 Sodium Chloride 0.9% 250 ml @ 0.19 MCG/KG/MIN 33. 353 mls/hr IV .[id number] [facility] Rx#:[id number] Potassium Chloride 10 meq 200 In Water For Injection 1 100ml.bag @ 100 mls/hr IVPB Q1H [facility] Rx#: [id number] propofoL 1,000 mg In 255.090 176.846 Empty Bag 1 bag @ 15 MCG/ KG/MIN 9.324 mls/hr IV . [id number] [facility]I Rx#:[id number] Tube Feeding 140 490 Other 150 60 Output: Urine 985 960 Other: Voiding Method Indwelling Catheter Indwelling Catheter ABP, PAP, CO, CI - Last Documented Arterial Blood Pressure 139/39 - Labs CBC & Chem 7: 07/21/24 05:41 07/21/24 05:41 Labs: Abnormal Lab Results - Last 24 Hours (Table) 07/20/24 07/20/24 07/20/24 Range/Units 17:40 19:45 23:45 WBC (3.8-10.6) k/uL Hgb (13.0-17.5) gm/dL Hct (39.0-53.0) % MCV (80.0-100.0) fL MCH (25.0-35.0) pg MCHC (31.0-37.0) g/dL RDW (11.5-15.5) % Neutrophils # (1.3-7.7) k/uL ABG pH (7.35-7.45) ABG HCO3 (21-25) mmol/L ABG Total CO2 (19-24) mmol/L Hemoglobin (13.0-17.5) gm/dL Chloride (98-107) mmol/L BUN (9-20) mg/dL Glucose (74-99) mg/dL POC Glucose (mg/dL) 111 H 121 H 120 H (70-110) mg/dL Calcium (8.4-10.2) mg/dL 07/21/24 07/21/24 07/21/24 Range/Units 05:05 05:23 05:41 WBC (3.8-10.6) k/uL Hgb (13.0-17.5) gm/dL Hct (39.0-53.0) % MCV (80.0-100.0) fL MCH (25.0-35.0) pg MCHC (31.0-37.0) g/dL RDW (11.5-15.5) % Neutrophils # (1.3-7.7) k/uL ABG pH 7.46 H (7.35-7.45) ABG HCO3 27 H (21-25) mmol/L ABG Total CO2 28 H (19-24) mmol/L Hemoglobin 9.4 L (13.0-17.5) gm/dL Chloride 108 H (98-107) mmol/L BUN 25 H (9-20) mg/dL Glucose 123 H (74-99) mg/dL POC Glucose (mg/dL) 140 H (70-110) mg/dL Calcium 7.7 L (8.4-10.2) mg/dL 07/21/24 Range/Units 05:41 WBC 11.8 H (3.8-10.6) k/uL Hgb 9.8 L (13.0-17.5) gm/dL Hct 33.1 L (39.0-53.0) % MCV 68.6 L (80.0-100.0) fL MCH 20.4 L (25.0-35.0) pg MCHC 29.7 L (31.0-37.0) g/dL RDW 17.1 H (11.5-15.5) % Neutrophils # 9.1 H (1.3-7.7) k/uL ABG pH (7.35-7.45) ABG HCO3 (21-25) mmol/L ABG Total CO2 (19-24) mmol/L Hemoglobin (13.0-17.5) gm/dL Chloride (98-107) mmol/L BUN (9-20) mg/dL Glucose (74-99) mg/dL POC Glucose (mg/dL) (70-110) mg/dL Calcium (8.4-10.2) mg/dL
[2024-07-21 08:17] LABS: Anisocytosis Slight; Basophils % (A) 0 %; Eosinophils # (A) 0.4 k/uL (0-0.7); Eosinophils % (A) 3 %; HCT 30.6 % (39.0-53.0); HGB 9.5 gm/dL (13.0-17.5); Hypochromasia Moderate; Lymphocytes # (A) 1.3 k/uL (1.0-4.8); Lymphocytes % (A) 11 %; MCV 67.7 fL (80.0-100.0); Mean Platelet Volume 7.4; Microcytosis Marked; Monocytes # (A) 0.6 k/uL (0-1.0); Monocytes % (A) 5 %; Neutrophils # (A) 9.5 k/uL (1.3-7.7); Neutrophils % (A) 79 %; Platelet Count 237 k/uL (150-450); Poikilocytosis Slight; RBC 4.51 m/uL (4.30-5.90); RDW 16.8 % (11.5-15.5); WBC 12.1 k/uL (3.8-10.6)
[2024-07-21 08:26] LABS: Partial Thromboplastin Time 24.5 sec (22.0-30.0); Prothrombin Time 10.9 sec (10.0-12.5)
[2024-07-21] MEDS: POTASSIUM BICARBONATE/CIT AC 20 MEQ TABLET.EFF NG-TUBE SCH (08:29)
[2024-07-21] MEDS: HEPARIN SOD,PORK IN 0.45% NACL 25,000 UNIT in 0.45% NACL 1 250ML.BAG IV SCH (08:48)
[2024-07-21] MEDS: HEPARIN SODIUM 1,000 UN/ML (10ML VL) IV ONE (08:48)
[2024-07-21] MEDS ORDERED: Potassium Replacement Protocol 1 EACH MISC MISCELLANE PRN (10:39)
--- NOTE | 2024-07-21 10:42 | P.PN ---
Subjective Progress Note Date: 07/21/24 Hospital course: Patient is a 78-year-old male with PMH of rheumatoid arthritis, hypertension and BPH was brought to the emergency department via EMS for cardiopulmonary arrest. His initial laboratory evaluation shows WBC of 19.7, hemoglobin 14.6, MCV of 74.8, platelet count 2 8, sodium 138, potassium 4.3, chloride 117, bicarb 13, BUN 18, creatinine 1.8. His cardiac troponin has been trending upward from 0.588--->14.9. Patient was recently seen at the hospital for the complaint of chest pain. Patient was diagnosed with type II OR slightly with elevated troponins likely secondary to COVID-19 pneumonitis. Echocardiogram showed LVEF of 55% and moderate pulmonary hypertension. Viral panel negative. Chest x-ray interpreted independently shows diffuse patchy infiltrate with groundglass opacities and bilateral pleural effusion. Brain CT shows no acute intracranial process. Chest CTA is negative for pulmonary embolism and patchy opacities throughout both lungs with small bilateral pleural effusions. EKG interpreted independently shows sinus bradycardia with a regular branch block. T wave inversions in anteroseptal and lateral leads. Echocardiogram shows LVEF of 25 to 30% and ischemic cardiomyopathy with apical hypokinesis. Repeat brain CT on 07/15/2024 shows concern for suspected left parietal subacute CVA compared to previous brain CT. CAT scan of the brain was repeated again on 07/17/2024 which at this time shows no acute intracranial process. Patient was taken to the [facility] on 06/16/2024 with a successful stenting to mid and proximal LAD. Impella was taken out. Patient was extubated and was able to maintain his mean arterial pressure without Impella and pressors. Patient had worsening respiratory status. Patient reintubated. Hospital course complicated with A- fib with RVR and patient started on amiodarone drip. Patient had second intervention with stents put in OM1 of left circumflex and RCA on 07/20/2024. Subjective: Patient seen and examined today. Patient continues to be on amiodarone drip for A-fib with RVR. CRISTINE guided cardioversion today. Currently on propofol 30 mcg/kg/h. Objective: Vital signs reviewed General: Intubated and sedated HEENT: normocephalic, atraumatic, no tracheal deviation Respiratory: Bilateral rhonchi, mechanically ventilated CVS: perfusing all extremities, no distal gangrene, trace pitting edema GI: soft, ND : no SPT, no CVAT, heard is present Neuro: Sedated Data reviewed today: Pertinent Labs: WBC 12.1, hemoglobin 9.5, platelet count 237, sodium 138, potassium 3.9, chloride 108, bicarb 27, creatinine 0.95, glucose 123, calcium 7.7, magnesium 2.0 Pertinent imaging: Chest x-ray independently interpreted, shows bilateral interstitial opacities Assessment/Plan: #Out of the hospital cardiopulmonary arrest #NSTEMI status post stents to LAD, OM1 branch of LCx and mid RCA #Cardiogenic Shock, resolved, status post Impella and pressors #Ischemic cardiomyopathy #Recent history of atypical chest pain and COVID-19 pneumonitis #Acute encephalopathy, likely metabolic #Subacute left parietal CVA #Paroxysmal A-fib with RVR Pulmonology following, patient reintubated on 07/18/2024 due to increased dy spnea; recs appreciated Continue with dual antiplatelet therapy: Aspirin 81 mg p.o. daily and Brilinta 90 mg p.o. twice daily Atorvastatin 40 mg p.o. Continue with Entresto 24-26 mg twice daily, Cardiology note reviewed, CRISTINE guided cardioversion likely this afternoon; recs appreciated Continue with amiodarone drip Started on heparin drip, monitor APTT, monitor for bleeding, Continue on IV furosemide 20 mg every 12 hours, monitor electrolytes Neurology following, likely had watershed infarct due to cardiac arrest Continue with weaning trials PT/OT/speech therapy once patient is extubated Seroquel has been discontinued #Bandemia, likely reactive to above, resolved #Normocytic anemia secondary to above -Improving #Anion gap metabolic acidosis secondary to lactic acid, resolved #Euthyroid sick syndrome secondary above TSH 7.63, free T4 - 0.8 #Hypermagnesemia, resolved Chronic conditions: BPH: Resume Flomax Hypertension: Hold nifedipine DVT prophylaxis: Heparin drip CODE STATUS: Full code Anticipated discharge place: Pending clinical course Patient is critically ill, needs close monitoring. Prognosis guarded. I have seen and evaluated the patient today. Discussed with the resident and agree with the residents finding and plan as documented in the resident's note. Changes highlighted in blue font. Objective - Vital Signs Vital signs: Vital Signs Temp 99 F 07/21/24 08:00 Pulse 134 H 07/21/24 10:00 Resp 23 07/21/24 10:00 BP 82/55 07/21/24 10:00 Pulse Ox 97 07/21/24 10:00 FiO2 40 07/21/24 08:00 Intake & Output 07/20/24 07/21/24 07/21/24 18:59 06:59 18:59 Intake Total 6416.248 7036.881 0 Output Total 985 960 Balance 992.079 64.881 0 Weight 111.8 kg 107 kg Intake: IV 980 260 Sodium Chloride 0.9% 1, 260 000 ml @ 20 mls/hr IV . Q24H [facility] Rx#:[id number] Sodium Chloride 0.9% 1, 825 000 ml In Empty Bag 1 bag @ 75 mls/hr IV .[id number] [facility] Rx#:[id number] Intake, IV Titration 707.079 214.881 0 Amount Amiodarone 450 mg In 237.505 Dextrose 5% in Water 250 ml @ 0.5 MG/MIN 16.667 mls/hr IV .Q15H [facility] Rx#: [id number] Norepinephrine 8 mg In 14.484 38.035 0 Sodium Chloride 0.9% 250 ml @ 0.19 MCG/KG/MIN 33. 353 mls/hr IV .[id number] [facility] Rx#:[id number] Potassium Chloride 10 meq 200 In Water For Injection 1 100ml.bag @ 100 mls/hr IVPB Q1H [facility] Rx#: [id number] propofoL 1,000 mg In 255.090 176.846 Empty Bag 1 bag @ 15 MCG/ KG/MIN 9.324 mls/hr IV . [id number] [facility] Rx#:[id number] Tube Feeding 140 490 Other 150 60 Output: Urine 985 960 Other: Voiding Method Indwelling Catheter Indwelling Catheter Indwelling Catheter ABP, PAP, CO, CI - Last Documented Arterial Blood Pressure 139/39 - Labs CBC & Chem 7: 07/21/24 07:57 07/21/24 06:02 Labs: Abnormal Lab Results - Last 24 Hours (Table) 07/20/24 07/20/24 07/20/24 Range/Units 17:40 19:45 23:45 WBC (3.8-10.6) k/uL Hgb (13.0-17.5) gm/dL Hct (39.0-53.0) % MCV (80.0-100.0) fL MCH (25.0-35.0) pg MCHC (31.0-37.0) g/dL RDW (11.5-15.5) % Neutrophils # (1.3-7.7) k/uL ABG pH (7.35-7.45) ABG HCO3 (21-25) mmol/L ABG Total CO2 (19-24) mmol/L Hemoglobin (13.0-17.5) gm/dL Chloride (98-107) mmol/L BUN (9-20) mg/dL Glucose (74-99) mg/dL POC Glucose (mg/dL) 111 H 121 H 120 H (70-110) mg/dL Calcium (8.4-10.2) mg/dL 07/21/24 07/21/24 07/21/24 Range/Units 05:05 05:23 05:41 WBC 11.8 H (3.8-10.6) k/uL Hgb 9.8 L (13.0-17.5) gm/dL Hct 33.1 L (39.0-53.0) % MCV 68.6 L (80.0-100.0) fL MCH 20.4 L (25.0-35.0) pg MCHC 29.7 L (31.0-37.0) g/dL RDW 17.1 H (11.5-15.5) % Neutrophils # 9.1 H (1.3-7.7) k/uL ABG pH 7.46 H (7.35-7.45) ABG HCO3 27 H (21-25) mmol/L ABG Total CO2 28 H (19-24) mmol/L Hemoglobin 9.4 L (13.0-17.5) gm/dL Chloride (98-107) mmol/L BUN (9-20) mg/dL Glucose (74-99) mg/dL POC Glucose (mg/dL) 140 H (70-110) mg/dL Calcium (8.4-10.2) mg/dL 07/21/24 07/21/24 Range/Units 06:02 07:57 WBC 12.1 H (3.8-10.6) k/uL Hgb 9.5 L (13.0-17.5) gm/dL Hct 30.6 L (39.0-53.0) % MCV 67.7 L (80.0-100.0) fL MCH 21.0 L (25.0-35.0) pg MCHC (31.0-37.0) g/dL RDW 16.8 H (11.5-15.5) % Neutrophils # 9.5 H (1.3-7.7) k/uL ABG pH (7.35-7.45) ABG HCO3 (21-25) mmol/L ABG Total CO2 (19-24) mmol/L Hemoglobin (13.0-17.5) gm/dL Chloride 108 H (98-107) mmol/L BUN 25 H (9-20) mg/dL Glucose 123 H (74-99) mg/dL POC Glucose (mg/dL) (70-110) mg/dL Calcium 7.7 L (8.4-10.2) mg/dL
[2024-07-21] MEDS: PIPERACILLIN-TAZOBACTAM 3.375 GM in SODIUM CHLORIDE 0.9% 100 ML IVPB SCH (10:55)
[2024-07-21] MEDS ORDERED: POTASSIUM CHLORIDE ER 20 MEQ TAB.ER PO SCH (11:00)
--- NOTE | 2024-07-21 11:18 | P.PN ---
Subjective Progress Note Date: 07/21/24 Principal diagnosis: Cardiac arrest and acute hypoxic respiratory failure This is a 78-year-old male patient with a history of rheumatoid arthritis, hypertension, BPH. He was recently here in May for atypical chest pain and COVID-19 pneumonitis. Discharged home on May 15, 2024. Since that time he had been doing well. Pain the patient was having a 2 to 3-day history of worsening shortness of breath. He was active yesterday and cleaning out his garage and did complain of shortness of breath and some chest discomfort. He developed worsening shortness of breath throughout the night. EMS was called and the arrival the patient had collapse. He was pulseless and CPR was started taking approximately 5 minutes until return of spontaneous circulation. He was brought in and being assisted with a bag valve mask device and a pulse ox of 74 and then intubated in the emergency department. He was brought up to the intensive care unit. He is currently intubated, sedated on the mechanical ventilator at a rate of 24, tidal volume 450, FiO2 90% and a PEEP of 10. Blood gases had revealed a PaO2 of 70, pCO2 of 62 and a pH of 7.14 on 100% FiO2. He is on fentanyl at 1.5 mcg/kg/h. He is currently on a heparin drip per weight- based protocol. Norepinephrine at 13.5 mcg/min. Propofol at 30 mcg/kg/min. CT scan of the brain revealed no acute findings. CT angiogram revealed no evidence of pulmonary embolism. There is small bilateral effusions. Some patchy airspace opacity/consolidation throughout both lungs. Mild groundglass opacities. White count 19.7. Hemoglobin 14.6. Platelets 208. Sodium 138. Potassium 4.3. Bicarb 13. BUN 18. Creatinine 1.13. Glucose 313. Troponin 0.588. proBNP 2770. TSH 7.36. Viral screen is negative. The patient is seen today July 12, 2024 in follow-up in the intensive care unit. He remains intubated sedated on the mechanical ventilator. Currently in assist-control mode with a rate of 30, tidal volume 450, FiO2 40% and a PEEP of 10. Morning blood gases revealed a PaO2 of 163, pCO2 of 26 and a pH of 7.49 and 50% FiO2. The PEEP will be decreased to 5. He is currently on cefazolin. Remains on bronchodilators. He is continued on a heparin drip per weight-based protocol. Norepinephrine at 0.03 mcg/kg/min. Propofol at 35 mcg/kg/min. Fentanyl drip at 1.25 mcg/kg/h. White count 9.6. Hemoglobin 11.4. Platelets 166. Sodium 136. Potassium 3.9. Bicarb 18. BUN 29. Creatinine 1.47. Glucose 114. Continue tube feedings of vital AF at a rate of 10 with a goal of 57. Will be on hold for cardiac catheterization today 07/13/2024, the patient is being seen for a follow-up. The patient remains intubated on the mechanical ventilator. He requires mechanical support for his cardiogenic shock postcardiac arrest and the patient is an Impella with a P7 support and a 3.1 L/min of augmentation. The patient remains on sedatives and the patient is currently on propofol the patient is 0.7. On the mechanical ventilator at a rate of 30, tidal volume of 450, FiO2 40% with PEEP of 5. Blood gas showed pH of 7.46 with a pCO2 of 27 and pO2 of 97. Chest x-ray shows cardiomegaly without any acute abnormalities. Orotracheal tubes are in good perfusion. The patient is currently on KVO IV fluids. The patient is on no pressors and the patient was taken off norepinephrine and is producing adequate amount of urine output in the order of 50 cc an hour. He remains on IV heparin. Creatinine is improved and the patient's creatinine peaked at 1.47 and currently is down to 1.08. He has a left subclavian triple-lumen catheter in place. [employer] Operator on the case and the patient underwent a cardiac catheterization on 07/12/2024 and the patient was found to have extremely calcified right and left coronary system with evidence of triple-vessel coronary artery disease and severely elevated left ventricular end-diastolic pressure. The white cell count at 7.9 with a hemoglobin 10.8 and a platelet count of 123. Sodium levels at 135, bicarbonate 18, BUN 27 with a creatinine of 1.08. LDH lev el is at 984. The echocardiogram was completed and the patient was found to have severe impairment of the LV function with an ejection fraction of 25 to 30%. There is also severe cardiomyopathy with wall motion abnormalities involving the apical area that was quite hypokinetic. The patient remains on aspirin. The patient remains on statins and the patient is currently on Lipitor 40 mg p.o. daily. Remains on IV heparin. He is also on vital AF for enteral feeding and nutritional support. Sound Truck Operator on the case. Cardiothoracic surgery was also involved in his care. The patient was deemed a high surgical risk for coronary intervention and bypass. On 07/14/2024, the patient is being seen for a follow-up. The patient remains sedated and the patient is currently on a combination of propofol running at 40 mcg/kg/min and fentanyl at 0.75 mcg/kg/h. The patient remains well sedated on mechanical ventilator and Impella for mechanical support for cardiogenic shock. This morning, the patient's Impella has been switched to P4 support with an augmentation of 2.5 L/min. The patient remains off pressors. Is producing adequate amount of urine output. Fluid balance is +1 L over the past 24 hours. He is hemolyzing and the hemoglobin is currently down to 9.9. Most recent LDH is at 946. At the same time, the patient remains on the mechanical ventilator. He is on assist-control mode with rate of 18, tidal volume of 450, FiO2 40% with a PEEP of 5. The blood gas from today shows a pH of 7.33 with a pCO2 of 41 and pO2 of 97. Chest x-ray is consistent with CHF/increased incisional markings consistent with heart failure. Orotracheal tube is in a good location. The patient has diffuse interstitial pattern bilaterally along with cardiomegaly and he has developed some small bilateral pleural effusions worse on the left. He remains on IV heparin. Remains on enteral feeding for additional support and the patient is currently on vital AF at rate of 35 cc an hour. IV fluids are currently at KVO. The patient's cardiac rhythm is sinus. The white cell count is 6.7 with a hemoglobin 9.9 and a platelet count of 106. The BUN is 17 with a creatinine of 0.8 and a sodium levels at 137, bicarb is at 22. 07/15/2024, the patient is being seen for a follow-up. The patient has signs of anoxic encephalopathy. The patient was given sedation holiday yesterday and he did not demonstrate adequate neurologic recovery. It was noted that he was not moving his right side effectively compared to the left. Based on that, the patient was placed back on propofol which is currently running at 40 mcg/kg/min. Attempts to wean off his Impella failed yesterday the patient became hypo tensive. The patient was given IV fluids and norepinephrine and the patient is currently off norepinephrine. He has Impella is augmenting at P4 level with 2.5 L/min augmentation. Fluid balance is +600 cc over the past 24 hours and the patient is producing urine output in the order of 30 to 40 cc an hour. No diuretics for now. Chest x-ray still showing CHF and bilateral pleural effusion right more than left. Remains on mechanical ventilator, assist-control mode with rate of 16, tidal volume of 450, FiO2 40% with a PEEP of 5. pH is 7.34 with a pCO2 of 43 and pO2 of 86. He is doing abdominal breathing and based on that, the patient was switched to pressure control mode of mechanical mario tilation. He is on vital AF at a rate of 35 cc an hour. The white cell count is 7.4, hemoglobin 9.6, his platelet count is at 116. LDH level is 625. Electrolytes are all within normal limits with a BUN of 14 and a creatinine of 0.7. Noted the patient's platelet count has dropped during this current admission and the patient remains on IV heparin. A limited echocardiogram was done yesterday and the patient was found to have impaired LV function with an estimated ejection fraction of around 40%. The patient also had segmental wall motion abnormalities. There was moderate LV dysfunction based on the echocardiogram. 07/16/2024, the patient is being seen for a follow-up. Events from yesterday was noted. Following a failed sedation holiday, the patient was noted to have some right-sided weakness. Based on that, a CAT scan of the brain was done and it showed a low-attenuation area in the left parietal lobe suspecting an evolving stroke. Another sedation holiday will be given today. Meanwhile, the patient will be kept on Impella pending cardiac catheterization and coronary inter vention as planned by cardiology. The patient is currently on a pressure control mode of mechanical ventilation, at rate of 18, pressure control of 20, FiO2 of 40% with a PEEP of 5. Blood gas showed a pH of 7.34 with pCO2 49 and pO2 of 92. Remains on IV heparin. He had some episodic hematuria but subsided. Fluid balance is -687 cc over the past 24 hours. Patient was receiving enteral feeding for nutritional support and currently it is on hold in preparation for cardiac catheterization. He was receiving vital AF at rate of 35 cc an hour. IV fluids are currently at KVO. The patient remains on IV Lasix. Meanwhile, the white cell count is 5.9, hemoglobin is 8.9 and a platelet count is 20. The patient's BUN is 15 with a creatinine of 0.7. Serum bicarb is at 28. Sodium levels at 137 and a potassium level is at 4.2. The patient remains on Impella with P4 support and 2.5 liters per minute of cardiac augmentation. The renal function remains stable with a BUN of 15 and a creatinine of 0.7. The LDH level is 511. Chest x-ray findings from today shows CHF, findings are essentially stable. He is afebrile. 07/17/2024, patient is being seen for a follow-up. The patient underwent a cardiac catheterization yesterday and the patient underwent successful stenting of the proximal and mid LAD. Following that, the Impella was discontinued and the patient was brought back to the intensive care unit. This morning, the patient remains sedated on propofol which is running at 25 mcg/kg/min and fentanyl at 0.5 mcg/kg/h. He remains on assist-control mode of mechanical ventilation. Pressure control cycled, with a pressure control of 20, rate of 16, FiO2 40% with a PEEP of 5. Blood gas showed a pH of 7.4 with a pCO2 40 and pO2 112. Chest x-ray shows cardiomegaly with bilateral pleural effusions and orotracheal tube is in good location. Fluid balance is plus a 1.5 L over the past 24 hours. Patient is on enteral feeding for nutritional support. A repeat CAT scan of the brain and C-spine was done yesterday and the CAT scan showed no acute intracranial process. Chronic appearing periventricular white matter ischemic changes were seen and there were less pronounced on the follow-up CAT scan. The white cell count of 5.5, hemoglobin is 8.7, platelet count is 97, BUN is at 16 with a creatinine of 0.7, bicarb is 23 and sodium levels at 135. LFTs are within normal limits. Afebrile. Hemodynamically stable on no pressors. Off the nitroglycerin drip for now. Cardiac rhythm is sinus bradycardia in the mid 50s. 07/18/2024, the patient was extubated and the patient was awake and alert and communicating. Earlier this morning, the patient was on oxygen at 2 L/min nasal cannula and chest x-ray was still showing CHF and bilateral pleural effusion and pulm vessel congestion. He was hemodynamically stable. He was off pressors. He had no complaints. As such, the patient was started on Entresto 24/25 1 tablet a day and the patient was kept on a combination of aspirin and Brilinta. The patient was also receiving Lasix 20 mg IV every 12 hours. The fluid balance is -2 L over the past 24 hours. On neurologic exam, the patient was unable to move his right upper extremity and there is an obvious right lower extremity weakness consistent with an acute CVA. Motor function on the left side was adequate at this point. Following our rounds, the patient became acutely short of breath and he became tachypneic and severe respiratory distress. He was placed on a BiPAP and the blood gas showed severe respiratory acidosis and a chest x-ray was consistent with acute pulmonary edema. Based on that, I had to intubate the patient and I placed him on the mechanical ventilator. Initial blood gases post mechanical ventilation showed a pH of 7.17 with a pCO2 of 66 and pO2 of 151 and based on that, increase the tidal volume to 450, increase the rate up to 28 and dropped FiO2 down to 80%. He remained hemodynamically stable. Slightly hypertensive. BUN is 19 with a creatinine of 0.7. Sodium levels at 139. WBC count 6.4 with a hemoglobin 8.7 and a platelet count of 107. Post intubation chest x-ray was consistent with pulmonary edema. ET tube noted to be pushed in by another 2 cm. He is currently on propofol which is running at 40 mcg/kg/min, calm and comfortable. On 07/19/2024, the patient is being seen for a follow-up. The patient remains intubated on the mechanical ventilator earlier this morning the patient was on propofol running at 50 mcg/kg/min. He failed extubation due to an acute pulmonary edema and the patient had to be reintubated. His current cardiac rhythm is sinus bradycardia. He also has conduction delay and widened QRS p robably a bundle branch block pattern. This was present since his admission. He was having few episodes of bradycardia and based on that the beta-blockers were placed on hold. He is still on IV Lasix 20 mg every 12 hours. Fluid balance is -2 L over the past 24 hours. He is on assist-control mode with rate of 28, tidal volume of 450, FiO2 of 60% with a PEEP of 5. Blood gas showed pH of 7.51 with a pCO2 of 33 and pO2 of 120. Chest x-ray still showing pulmonary edema. The patient was started on Entresto. He was started also on enteral feeding for nutritional support and the patient is on vital AF. Afebrile. No other significant issues overnight. Cardiology remains on the case. Remains on aspirin and Brilinta. Patient was evaluated today at 07/20/2024, remains in the ICU, intubated and mechanically ventilated, patient is on assist-control rate of 22 tidal volume 450 FiO2 40% and PEEP of 5 ABG showed a pO2 of 82 pCO2 35 pH of 7.50 FiO2 was cut down to 20. Increase flow rate to 60 L/min. Patient is on amiodarone at 0.5 mg/min IV fluid is running at 75 cc/h patient is scheduled to undergo repeat cardiac catheterization today. His last ejection fraction on echocardiogram was 15 to 20%. Patient failed weaning at 1 point as he developed pulmonary edema shortly after he was extubated. Patient also had a previous stent of the LAD on his initial admission he had an Impella device placed and has been removed patient continues to have right-sided weakness. Intermittently the patient is in atrial fibrillation continues on amiodarone. Again he scheduled to have cardiac catheterization today. Chest x-ray continues to show evidence of pulmonary edema. WBC count is 10.5 hemoglobin is 9.6 basic metabolic profile is normal and renal profile is normal. Evaluated today on 07/21/2024, remains in the ICU, intubated mechanically ventilated, patient underwent multiple stents to RCA and obtuse marginal 1 and he was found to have patent stent in LAD patient is on assist-control rate of 20 tidal volume 450 FiO2 40% and PEEP of 5 ABG showed a pO2 of 86 pCO2 38 pH of 7.46. Patient remains on amiodarone at 0.5 mg/min propofol 30 mg/kg/min norepinephrine is presently on hold, remains on Lasix 20 mg IV push twice daily, patient is scheduled to have CRISTINE and possible cardioversion today. Antibiotics grullon he received cefepime considering a chest x-ray continues show bibasilar infiltrates, I recommended that we start the patient on Zosyn. And will check procalcitonin. Discussed today his condition with cardiology again planning CRISTINE and cardioversion WBC count is 12.1 hemoglobin 9.5.Basic metabolic profile is normal renal profile is normal Objective - Vital Signs Vital signs: Vital Signs Temp 99 F 07/21/24 08:00 Pulse 92 07/21/24 11:12 Resp 23 07/21/24 10:00 BP 82/55 07/21/24 10:00 Pulse Ox 97 07/21/24 10:00 FiO2 40 07/21/24 11:12 Intake & Output 07/20/24 07/21/24 07/21/24 18:59 06:59 18:59 Intake Total 5009.010 2470.881 81.580 Output Total 985 960 310 Balance 992.079 64.881 -228.420 Weight 111.8 kg 107 kg Intake: IV 980 260 80 Sodium Chloride 0.9% 1, 260 80 000 ml @ 20 mls/hr IV . Q24H [facility] Rx#:[id number] Sodium Chloride 0.9% 1, 825 000 ml In Empty Bag 1 bag @ 75 mls/hr IV .[id number] [facility] Rx#:[id number] Intake, IV Titration 707.079 214.881 1.580 Amount Amiodarone 450 mg In 237.505 Dextrose 5% in Water 250 ml @ 0.5 MG/MIN 16.667 mls/hr IV .Q15H [facility] Rx#: [id number] Norepinephrine 8 mg In 14.484 38.035 1.580 Sodium Chloride 0.9% 250 ml @ 0.19 MCG/KG/MIN 33. 353 mls/hr IV .[id number] [facility] Rx#:[id number] Potassium Chloride 10 meq 200 In Water For Injection 1 100ml.bag @ 100 mls/hr IVPB Q1H [facility] Rx#: [id number] propofoL 1,000 mg In 255.090 176.846 Empty Bag 1 bag @ 15 MCG/ KG/MIN 9.324 mls/hr IV . [id number] [facility] Rx#:[id number] Tube Feeding 140 490 Other 150 60 Output: Urine 985 960 310 Other: Voiding Method Indwelling Catheter Indwelling Catheter Indwelling Catheter ABP, PAP, CO, CI - Last Documented Arterial Blood Pressure 139/39 - Exam GENERAL EXAM: Revealed a 78-year-old male intubated, mechanically ventilated, sedated, on propofol and he is also on amiodarone drip HEAD: Normocephalic. EYES: Normal reaction of pupils, equal size. NOSE: Clear with pink turbinates. THROAT: Dry mucous membranes, endotracheal tube is intact. NECK: No masses, no JVD. CHEST: No chest wall deformity. LUNGS: Diminished breath sounds at the bases with minimal fine crackles at the bases only CVS: Distant S1 and S2 normal with no audible murmur, regular rhythm. ABDOMEN: No hepatosplenomegaly, normal bowel sounds, no guarding or rigidity. SKIN: No rashes CENTRAL NERVOUS SYSTEM: Could not assess, patient is fully sedated EXTREMITIES: No clubbing, trace of bipedal edema, no cyanosis. - Labs CBC & Chem 7: 07/21/24 07:57 07/21/24 06:02 Labs: Abnormal Lab Results - Last 24 Hours (Table) 07/20/24 07/20/24 07/20/24 Range/Units 17:40 19:45 23:45 WBC (3.8-10.6) k/uL Hgb (13.0-17.5) gm/dL Hct (39.0-53.0) % MCV (80.0-100.0) fL MCH (25.0-35.0) pg MCHC (31.0-37.0) g/dL RDW (11.5-15.5) % Neutrophils # (1.3-7.7) k/uL ABG pH (7.35-7.45) ABG HCO3 (21-25) mmol/L ABG Total CO2 (19-24) mmol/L Hemoglobin (13.0-17.5) gm/dL Chloride (98-107) mmol/L BUN (9-20) mg/dL Glucose (74-99) mg/dL POC Glucose (mg/dL) 111 H 121 H 120 H (70-110) mg/dL Calcium (8.4-10.2) mg/dL 07/21/24 07/21/24 07/21/24 Range/Units 05:05 05:23 05:41 WBC 11.8 H (3.8-10.6) k/uL Hgb 9.8 L (13.0-17.5) gm/dL Hct 33.1 L (39.0-53.0) % MCV 68.6 L (80.0-100.0) fL MCH 20.4 L (25.0-35.0) pg MCHC 29.7 L (31.0-37.0) g/dL RDW 17.1 H (11.5-15.5) % Neutrophils # 9.1 H (1.3-7.7) k/uL ABG pH 7.46 H (7.35-7.45) ABG HCO3 27 H (21-25) mmol/L ABG Total CO2 28 H (19-24) mmol/L Hemoglobin 9.4 L (13.0-17.5) gm/dL Chloride (98-107) mmol/L BUN (9-20) mg/dL Glucose (74-99) mg/dL POC Glucose (mg/dL) 140 H (70-110) mg/dL Calcium (8.4-10.2) mg/dL 07/21/24 07/21/24 Range/Units 06:02 07:57 WBC 12.1 H (3.8-10.6) k/uL Hgb 9.5 L (13.0-17.5) gm/dL Hct 30.6 L (39.0-53.0) % MCV 67.7 L (80.0-100.0) fL MCH 21.0 L (25.0-35.0) pg MCHC (31.0-37.0) g/dL RDW 16.8 H (11.5-15.5) % Neutrophils # 9.5 H (1.3-7.7) k/uL ABG pH (7.35-7.45) ABG HCO3 (21-25) mmol/L ABG Total CO2 (19-24) mmol/L Hemoglobin (13.0-17.5) gm/dL Chloride 108 H (98-107) mmol/L BUN 25 H (9-20) mg/dL Glucose 123 H (74-99) mg/dL POC Glucose (mg/dL) (70-110) mg/dL Calcium 7.7 L (8.4-10.2) mg/dL Assessment and Plan Assessment: Impression: Status post cardiac arrest, [id number] CPR, downtime about 5 minutes. Acute hypoxic respiratory failure secondary to above. Patient has developed extensive pulmonary edema secondary to LV dysfunction secondary to ischemic cardiomyopathy. Pulmonary edema with bilateral pleural effusions, currently on IV Lasix with adequate urine output. Acute non-ST segment elevation myocardial infarction, status post cardiac catheterization indicating triple-vessel coronary artery disease, status post cardiac catheterization and stenting x 2 of the mid and proximal LAD and the patient is currently on a combination of aspirin and Brilinta and the Impella has been discontinued Cardiogenic shock, required Impella device, for a brief period of time Acute CVA with motor weakness in the right side, right upper extremity more than right lower extremity. Acute kidney injury, recovered and the patient is producing adequate amount of urine output Recent discharge in May 2024 for atypical chest pain and COVID-19 infection/pneumonitis Rheumatoid arthritis Hypertension Benign prostatic hyperplasia Thrombocytopenia, improving Chronic anemia Recommendation: Continue ventilatory support Considered patient is scheduled for CRISTINE and cardioversion today, will hold on weaning for now. Continue amiodarone for cardiac arrhythmia/atrial fibrillation Continue diuretics, will cut down on the dose of diuretics since his left ventricular end-diastolic pressure was 10 yesterday Continue to monitor urine output Continue Entresto Continue nutritional support presently on vital AF 1.2, presently on hold for CRISTINE Will address weaning parameters and weaning trials later today or in a.m. Condition remains critical Continue GI and DVT prophylaxis Discussed his cardiac condition with Dr. Vázquez and again the plans are to proceed with cardioversion today after CRISTINE Patient is critically ill Critical care time is over 30 minutes Time with Patient: Greater than 30
[2024-07-21 12:54] LABS: Glucose,Whole Blood 134 mg/dL (70-110)
[2024-07-21] MEDS: AMIODARONE 450 MG in DEXTROSE 5% IN WATER 250 ML IV SCH (13:33)
[2024-07-21] MEDS: HEPARIN SODIUM 1,000 UN/ML (10ML VL) IV PRN (16:12)
[2024-07-21 18:08] LABS: Glucose,Whole Blood 143 mg/dL (70-110)
--- NOTE | 2024-07-21 19:57 | P.PCN ---
Date of Procedure: 07/21/24 Operative Findings: Cardioversion Report Performing physician Jack Abrams MD Procedure performed Successful cardioversion of atrial fibrillation to normal sinus mechanism using 200 J on first attempt Complication None Level of sedation The procedure was performed in the intensive care unit when the patient was intubated on mechanical ventilation and he was sedated using propofol Procedure description After transesophageal echocardiogram was performed and intracardiac thrombus was ruled out the patient cardioverted from atrial fibrillation to normal sinus mechanism using 200 J at first attempt. Postprocedure management Continue anticoagulation Continue AV eligio kaela agents Follow-up with the patient
--- NOTE | 2024-07-21 20:01 | P.PCN ---
Date of Procedure: 07/21/24 Operative Findings: Transesophageal Echocardiogram Report (CRISTINE) Performing physician Jack Abrams MD Indication Rule out intracardiac thrombus and left atrial thrombus before cardioversion of atrial fibrillation Complication None Level of sedation The procedure was performed at bedside in the intensive care unit and the patient was sedated using propofol Procedure description The procedure was performed at bedside in the ICU. The patient was intubated already on mechanical ventilation and he was sedated using propofol. After making sure that sedation was adequate, and after placing a bite guard, the transesophageal echocardiogram probe was advanced through the bicarb to the mid esophageal were a 2D echocardiogram as well as color Doppler and pulse-wave Doppler on continuous-wave Doppler performed. The patient tolerated the procedure very well and no complication reported. Subsequently the probe was withdrawn out. Please note that the procedure was technically very difficult and the cardiac structures were not well-visualized just because the patient was laying flat and we had to turn the patient into left lateral position in the middle of the procedure for better imaging quality. Conclusion No evidence of any intracardiac thrombus Intact left atrial appendage Biatrial enlargement was identified Impaired LV function with EF between 35 to 40% Mild to moderate mitral regurgitation No evidence of pericardial effusion
[2024-07-21] MEDS: ZOLPIDEM 5 MG TAB PO PRN (21:22)
[2024-07-22 00:11] LABS: Glucose,Whole Blood 124 mg/dL (70-110)
[2024-07-22 05:21] LABS: ABG HCO3 26 mmol/L (21-25); ABG Oxygen Saturation 96.8 % (94-97); ABG PCO2 40 mmHg (35-45); ABG PH 7.43 (7.35-7.45); ABG PO2 85 mmHg (83-108); ABG TCO2 28 mmol/L (19-24); Allen Test Performed? Yes
[2024-07-22 05:58] LABS: Anisocytosis Slight; Basophils % (A) 0 %; Eosinophils # (A) 0.4 k/uL (0-0.7); Eosinophils % (A) 4 %; HCT 29.1 % (39.0-53.0); HGB 8.8 gm/dL (13.0-17.5); Hypochromasia Marked; Lymphocytes # (A) 1.1 k/uL (1.0-4.8); Lymphocytes % (A) 11 %; MCH 20.6 pg (25.0-35.0); MCHC 30.3 g/dL (31.0-37.0); Mean Platelet Volume 8.4; Microcytosis Marked; Monocytes # (A) 0.5 k/uL (0-1.0); Monocytes % (A) 5 %; Neutrophils # (A) 7.5 k/uL (1.3-7.7); Neutrophils % (A) 79 %; Platelet Count 249 k/uL (150-450); RBC 4.28 m/uL (4.30-5.90); RDW 16.4 % (11.5-15.5); WBC 9.6 k/uL (3.8-10.6)
[2024-07-22 06:09] LABS: African American GFR (CKD) 71 (>60 ml/min/1.73 sqM); Anion Gap 2 mmol/L; Blood Urea Nitrogen 32 mg/dL (9-20); Calcium 7.5 mg/dL (8.4-10.2); Carbon Dioxide 26 mmol/L (22-30); Chloride 108 mmol/L (98-107); Glucose 117 mg/dL (74-99); Non-African American GFR(CKD) 61 (>60 ml/min/1.73 sqM); Potassium 3.6 mmol/L (3.5-5.1); Sodium 136 mmol/L (137-145)
[2024-07-22 06:20] LABS: Prothrombin Time 11.2 sec (10.0-12.5)
[2024-07-22 06:22] LABS: Glucose,Whole Blood 126 mg/dL (70-110)
[2024-07-22] MEDS: POTASSIUM BICARBONATE/CIT AC 20 MEQ TABLET.EFF NG-TUBE SCH ×2 (06:45→11:57)
--- NOTE | 2024-07-22 07:23 | P.PN ---
Subjective Progress Note Date: 07/22/24 PROGRESS NOTE The patient is a 78-year-old male who was admitted to the hospital on July 11 with cardiac arrest, severe cardiomyopathy and severe triple-vessel disease. He was evaluated by Dr. Abrams, underwent an Impella placement. His echocardiogram on presentation showed an ejection fraction 25 to 30% with anterior apical hypokinesis. On July 16 he underwent stenting of the LAD with removal of the Impella CP. He remains intubated, sedated. He is having episodes of paroxysmal atrial fibrillation with sinus bradycardia at times. He has good urine output. He is scheduled to undergo PCI of the RCA and the left circumflex today. He is on no vasopressors. He was found to have right-sided weakness suggestive of a cerebrovascular accident. Repeat echocardiogram on July 14 showed an e jection fraction of 40% while he was on the Impella. He was extubated but had to be reintubated because of respiratory distress. He has no evidence of ventricular ectopic activity. July 21: The patient remains intubated and sedated, in atrial fibrillation. He had episodes of recurrent rapid ventricle response. He is on beta-blockers, well- tolerated. He continues to be on IV amiodarone. He underwent stenting of the left circumflex and RCA yesterday. He is on no vasopressors. His urinary output is good. There is no evidence of ventricular tachycardia. July 22: The patient remains intubated he is more awake. He underwent CRISTINE guided cardioversion yesterday with mormonism of sinus mechanism. He continues to be in sinus mechanism today, his CRISTINE showed an ejection fraction of 35 to 40% with no reported segmental wall motion abnormality. His urinary output is stable. He is on no vasopressors. He has no evidence of ventricular ectopic activity. He continues to be on IV heparin and IV amiodarone. He is following commands. Medications: Amiodarone intravenous, aspirin, Lipitor 40 mg daily, Lasix 20 mg IV every 12 hours, Entresto 24-26 mg daily, Flomax, Brilinta 90 mg twice a day, IV heparin, metoprolol 50 mg twice a day PHYSICAL EXAMINATION: Blood pressure 105/50 heart rate 60, intubated, following command LUNGS: Clear to auscultation HEART: Regular rate and rhythm, S1, S2. No S3. Systolic ejection murmur ABDOMEN: Soft, obese, no organomegaly EXTREMETIES: No edema, right sided weakness LAB: Hemoglobin 8.8, platelets count 249, potassium 3.6, BUN 32, creatinine 1.15. IMPRESSION: 1. Cardiac arrest with severe cardiomyopathy and cardiogenic shock status post Impella 2. Severe triple-vessel disease, status post stenting of the LAD and stenting of the left circumflex and RCA on July 20 3. Paroxysmal atrial fibrillation alternating with sinus bradycardia, back in sinus mechanism post cardioversion 4. Evidence suggests right sided weakness related to a cerebrovascular accident 5. Respiratory failure with reintubation 6. Acute renal injury, resolved 7. History of hypertension PLAN: 1. Change to oral amiodarone and Eliquis 2. Probable wean and extubate today 3. If stable change to oral diuretics tomorrow 4. Add spironolactone 5. Depending on his progress further recommendations will be made Objective - Vital Signs Vital signs: Vital Signs Temp 98.8 F 07/22/24 04:00 Pulse 56 L 07/22/24 07:00 Resp 20 07/22/24 07:00 BP 105/51 07/22/24 07:00 Pulse Ox 99 07/22/24 07:00 FiO2 40 07/22/24 04:00 Intake & Output 07/21/24 07/22/24 07/22/24 18:59 06:59 18:59 Intake Total 1394.898 3675.163 90 Output Total 615 580 30 Balance 398.991 766.163 60 Weight 106.7 kg Intake: IV 320 340 Piperacillin-Tazobactam 3 100 200 .375 gm In Sodium Chloride 0.9% 100 ml @ 25 mls/hr IVPB Q8H [facility] Rx#: [id number] Sodium Chloride 0.9% 1, 220 140 000 ml @ 20 mls/hr IV . Q24H [facility] Rx#:[id number] Intake, IV Titration 423.991 506.163 Amount Amiodarone 450 mg In 250 Dextrose 5% in Water 250 ml @ 0.5 MG/MIN 16.667 mls/hr IV .Q15H [facility] Rx#: [id number] Dexmedetomidine/0.9% NaCl 97.663 (Pmx) 400 mcg In Empty Bag 1 bag @ 0.2 MCG/KG/HR 5.5 mls/hr IV .[id number] [facility]I Rx#:[id number] Heparin Sod,Pork in 0.45% 73.87 172.661 NaCl 25,000 unit In 0.45 % NaCl 1 250ml.bag @ 9.35 UNITS/KG/HR 10.005 mls/ hr IV .Q24H [facility]I Rx#: [id number] Norepinephrine 8 mg In 20.421 Sodium Chloride 0.9% 250 ml @ 0.19 MCG/KG/MIN 33. 353 mls/hr IV .[id number] [facility] Rx#:[id number] propofoL 1,000 mg In 232.037 83.502 Empty Bag 1 bag @ 15 MCG/ KG/MIN 9.324 mls/hr IV . [id number] [facility]I Rx#:[id number] Tube Feeding 210 350 Other 60 150 90 Output: Urine 615 580 30 Other: Voiding Method Indwelling Catheter Indwelling Catheter # Bowel Movements 1 ABP, PAP, CO, CI - Last Documented Arterial Blood Pressure 139/39 - Labs CBC & Chem 7: 07/22/24 05:26 07/22/24 05:26 Labs: Abnormal Lab Results - Last 24 Hours (Table) 07/21/24 07/21/24 07/21/24 Range/Units 06:02 07:57 12:53 WBC 12.1 H (3.8-10.6) k/uL RBC (4.30-5.90) m/uL Hgb 9.5 L (13.0-17.5) gm/dL Hct 30.6 L (39.0-53.0) % MCV 67.7 L (80.0-100.0) fL MCH 21.0 L (25.0-35.0) pg MCHC (31.0-37.0) g/dL RDW 16.8 H (11.5-15.5) % Neutrophils # 9.5 H (1.3-7.7) k/uL APTT (22.0-30.0) sec ABG HCO3 (21-25) mmol/L ABG Total CO2 (19-24) mmol/L Hemoglobin (13.0-17.5) gm/dL Sodium (137-145) mmol/L Chloride 108 H (98-107) mmol/L BUN 25 H (9-20) mg/dL Glucose 123 H (74-99) mg/dL POC Glucose (mg/dL) 134 H (70-110) mg/dL Calcium 7.7 L (8.4-10.2) mg/dL 07/21/24 07/21/24 07/21/24 Range/Units 15:26 18:06 23:26 WBC (3.8-10.6) k/uL RBC (4.30-5.90) m/uL Hgb (13.0-17.5) gm/dL Hct (39.0-53.0) % MCV (80.0-100.0) fL MCH (25.0-35.0) pg MCHC (31.0-37.0) g/dL RDW (11.5-15.5) % Neutrophils # (1.3-7.7) k/uL APTT 37.6 H 49.4 H (22.0-30.0) sec ABG HCO3 (21-25) mmol/L ABG Total CO2 (19-24) mmol/L Hemoglobin (13.0-17.5) gm/dL Sodium (137-145) mmol/L Chloride (98-107) mmol/L BUN (9-20) mg/dL Glucose (74-99) mg/dL POC Glucose (mg/dL) 143 H (70-110) mg/dL Calcium (8.4-10.2) mg/dL 07/22/24 07/22/24 07/22/24 Range/Units 00:10 05:18 05:26 WBC (3.8-10.6) k/uL RBC 4.28 L (4.30-5.90) m/uL Hgb 8.8 L (13.0-17.5) gm/dL Hct 29.1 L (39.0-53.0) % MCV 68.0 L (80.0-100.0) fL MCH 20.6 L (25.0-35.0) pg MCHC 30.3 L (31.0-37.0) g/dL RDW 16.4 H (11.5-15.5) % Neutrophils # (1.3-7.7) k/uL APTT (22.0-30.0) sec ABG HCO3 26 H (21-25) mmol/L ABG Total CO2 28 H (19-24) mmol/L Hemoglobin 8.4 L (13.0-17.5) gm/dL Sodium (137-145) mmol/L Chloride (98-107) mmol/L BUN (9-20) mg/dL Glucose (74-99) mg/dL POC Glucose (mg/dL) 124 H (70-110) mg/dL Calcium (8.4-10.2) mg/dL 07/22/24 07/22/24 07/22/24 Range/Units 05:26 05:26 06:21 WBC (3.8-10.6) k/uL RBC (4.30-5.90) m/uL Hgb (13.0-17.5) gm/dL Hct (39.0-53.0) % MCV (80.0-100.0) fL MCH (25.0-35.0) pg MCHC (31.0-37.0) g/dL RDW (11.5-15.5) % Neutrophils # (1.3-7.7) k/uL APTT 52.0 H (22.0-30.0) sec ABG HCO3 (21-25) mmol/L ABG Total CO2 (19-24) mmol/L Hemoglobin (13.0-17.5) gm/dL Sodium 136 L (137-145) mmol/L Chloride 108 H (98-107) mmol/L BUN 32 H (9-20) mg/dL Glucose 117 H (74-99) mg/dL POC Glucose (mg/dL) 126 H (70-110) mg/dL Calcium 7.5 L (8.4-10.2) mg/dL Microbiology - Last 24 Hours (Table) 07/16/24 09:33 Blood Culture - Final Blood
[2024-07-22] MEDS: AMIODARONE 200 MG TAB PO SCH (07:57)
[2024-07-22] MEDS: APIXABAN 5 MG TAB PO SCH (07:57)
[2024-07-22] MEDS: SPIRONOLACTONE 25 MG TAB PO SCH (07:59)
--- NOTE | 2024-07-22 08:11 | XR ---
EXAMINATION TYPE: XR chest 1V portable DATE OF EXAM: 07/22/2024 5:02 AM COMPARISON: Chest radiographs from 07/21/2024 CLINICAL INDICATION: Male, 78 years old with history of Ventilator; [facility] TECHNIQUE: XR chest 1V portable Frontal view of the chest. FINDINGS: Lungs/Pleura: No evidence of focal consolidation or pneumothorax. Blunting of the costophrenic angles is present. Pulmonary vascularity: Unremarkable. Heart/mediastinum: Cardiomediastinal silhouette is unremarkable. Musculoskeletal: No acute osseous pathology. Other findings: None Lines/Tubes: Endotracheal tube with distal tip 4.7cm above the santino. Nasogastric tube with side-port projecting over the distal esophagus. Left central venous catheter with distal tip at the cavoatrial junction. IMPRESSION: 1. Endotracheal tube in appropriate position. 2. Nasogastric tube now in appropriate position 3. Suspected layering bilateral pleural effusions. [facility], , 07/22/2024 8:09 AM
[2024-07-22 11:50] LABS: Glucose,Whole Blood 131 mg/dL (70-110)
--- NOTE | 2024-07-22 12:00 | P.PN ---
Subjective Progress Note Date: 07/22/24 Principal diagnosis: Cardiac arrest and acute hypoxic respiratory failure This is a 78-year-old male patient with a history of rheumatoid arthritis, hypertension, BPH. He was recently here in May for atypical chest pain and COVID-19 pneumonitis. Discharged home on May 15, 2024. Since that time he had been doing well. Pain the patient was having a 2 to 3-day history of worsening shortness of breath. He was active yesterday and cleaning out his garage and did complain of shortness of breath and some chest discomfort. He developed worsening shortness of breath throughout the night. EMS was called and the arrival the patient had collapse. He was pulseless and CPR was started taking approximately 5 minutes until return of spontaneous circulation. He was brought in and being assisted with a bag valve mask device and a pulse ox of 74 and then intubated in the emergency department. He was brought up to the intensive care unit. He is currently intubated, sedated on the mechanical ventilator at a rate of 24, tidal volume 450, FiO2 90% and a PEEP of 10. Blood gases had revealed a PaO2 of 70, pCO2 of 62 and a pH of 7.14 on 100% FiO2. He is on fentanyl at 1.5 mcg/kg/h. He is currently on a heparin drip per weight- based protocol. Norepinephrine at 13.5 mcg/min. Propofol at 30 mcg/kg/min. CT scan of the brain revealed no acute findings. CT angiogram revealed no evidence of pulmonary embolism. There is small bilateral effusions. Some patchy airspace opacity/consolidation throughout both lungs. Mild groundglass opacities. White count 19.7. Hemoglobin 14.6. Platelets 208. Sodium 138. Potassium 4.3. Bicarb 13. BUN 18. Creatinine 1.13. Glucose 313. Troponin 0.588. proBNP 2770. TSH 7.36. Viral screen is negative. The patient is seen today July 12, 2024 in follow-up in the intensive care unit. He remains intubated sedated on the mechanical ventilator. Currently in assist-control mode with a rate of 30, tidal volume 450, FiO2 40% and a PEEP of 10. Morning blood gases revealed a PaO2 of 163, pCO2 of 26 and a pH of 7.49 and 50% FiO2. The PEEP will be decreased to 5. He is currently on cefazolin. Remains on bronchodilators. He is continued on a heparin drip per weight-based protocol. Norepinephrine at 0.03 mcg/kg/min. Propofol at 35 mcg/kg/min. Fentanyl drip at 1.25 mcg/kg/h. White count 9.6. Hemoglobin 11.4. Platelets 166. Sodium 136. Potassium 3.9. Bicarb 18. BUN 29. Creatinine 1.47. Glucose 114. Continue tube feedings of vital AF at a rate of 10 with a goal of 57. Will be on hold for cardiac catheterization today 07/13/2024, the patient is being seen for a follow-up. The patient remains intubated on the mechanical ventilator. He requires mechanical support for his cardiogenic shock postcardiac arrest and the patient is an Impella with a P7 support and a 3.1 L/min of augmentation. The patient remains on sedatives and the patient is currently on propofol the patient is 0.7. On the mechanical ventilator at a rate of 30, tidal volume of 450, FiO2 40% with PEEP of 5. Blood gas showed pH of 7.46 with a pCO2 of 27 and pO2 of 97. Chest x-ray shows cardiomegaly without any acute abnormalities. Orotracheal tubes are in good perfusion. The patient is currently on KVO IV fluids. The patient is on no pressors and the patient was taken off norepinephrine and is producing adequate amount of urine output in the order of 50 cc an hour. He remains on IV heparin. Creatinine is improved and the patient's creatinine peaked at 1.47 and currently is down to 1.08. He has a left subclavian triple-lumen catheter in place. Retina Subspecialist on the case and the patient underwent a cardiac catheterization on 07/12/2024 and the patient was found to have extremely calcified right and left coronary system with evidence of triple-vessel coronary artery disease and severely elevated left ventricular end-diastolic pressure. The white cell count at 7.9 with a hemoglobin 10.8 and a platelet count of 123. Sodium levels at 135, bicarbonate 18, BUN 27 with a creatinine of 1.08. LDH lev el is at 984. The echocardiogram was completed and the patient was found to have severe impairment of the LV function with an ejection fraction of 25 to 30%. There is also severe cardiomyopathy with wall motion abnormalities involving the apical area that was quite hypokinetic. The patient remains on aspirin. The patient remains on statins and the patient is currently on Lipitor 40 mg p.o. daily. Remains on IV heparin. He is also on vital AF for enteral feeding and nutritional support. Retina Subspecialist on the case. Cardiothoracic surgery was also involved in his care. The patient was deemed a high surgical risk for coronary intervention and bypass. On 07/14/2024, the patient is being seen for a follow-up. The patient remains sedated and the patient is currently on a combination of propofol running at 40 mcg/kg/min and fentanyl at 0.75 mcg/kg/h. The patient remains well sedated on mechanical ventilator and Impella for mechanical support for cardiogenic shock. This morning, the patient's Impella has been switched to P4 support with an augmentation of 2.5 L/min. The patient remains off pressors. Is producing adequate amount of urine output. Fluid balance is +1 L over the past 24 hours. He is hemolyzing and the hemoglobin is currently down to 9.9. Most recent LDH is at 946. At the same time, the patient remains on the mechanical ventilator. He is on assist-control mode with rate of 18, tidal volume of 450, FiO2 40% with a PEEP of 5. The blood gas from today shows a pH of 7.33 with a pCO2 of 41 and pO2 of 97. Chest x-ray is consistent with CHF/increased incisional markings consistent with heart failure. Orotracheal tube is in a good location. The patient has diffuse interstitial pattern bilaterally along with cardiomegaly and he has developed some small bilateral pleural effusions worse on the left. He remains on IV heparin. Remains on enteral feeding for additional support and the patient is currently on vital AF at rate of 35 cc an hour. IV fluids are currently at KVO. The patient's cardiac rhythm is sinus. The white cell count is 6.7 with a hemoglobin 9.9 and a platelet count of 106. The BUN is 17 with a creatinine of 0.8 and a sodium levels at 137, bicarb is at 22. 07/15/2024, the patient is being seen for a follow-up. The patient has signs of anoxic encephalopathy. The patient was given sedation holiday yesterday and he did not demonstrate adequate neurologic recovery. It was noted that he was not moving his right side effectively compared to the left. Based on that, the patient was placed back on propofol which is currently running at 40 mcg/kg/min. Attempts to wean off his Impella failed yesterday the patient became hypo tensive. The patient was given IV fluids and norepinephrine and the patient is currently off norepinephrine. He has Impella is augmenting at P4 level with 2.5 L/min augmentation. Fluid balance is +600 cc over the past 24 hours and the patient is producing urine output in the order of 30 to 40 cc an hour. No diuretics for now. Chest x-ray still showing CHF and bilateral pleural effusion right more than left. Remains on mechanical ventilator, assist-control mode with rate of 16, tidal volume of 450, FiO2 40% with a PEEP of 5. pH is 7.34 with a pCO2 of 43 and pO2 of 86. He is doing abdominal breathing and based on that, the patient was switched to pressure control mode of mechanical mario tilation. He is on vital AF at a rate of 35 cc an hour. The white cell count is 7.4, hemoglobin 9.6, his platelet count is at 116. LDH level is 625. Electrolytes are all within normal limits with a BUN of 14 and a creatinine of 0.7. Noted the patient's platelet count has dropped during this current admission and the patient remains on IV heparin. A limited echocardiogram was done yesterday and the patient was found to have impaired LV function with an estimated ejection fraction of around 40%. The patient also had segmental wall motion abnormalities. There was moderate LV dysfunction based on the echocardiogram. 07/16/2024, the patient is being seen for a follow-up. Events from yesterday was noted. Following a failed sedation holiday, the patient was noted to have some right-sided weakness. Based on that, a CAT scan of the brain was done and it showed a low-attenuation area in the left parietal lobe suspecting an evolving stroke. Another sedation holiday will be given today. Meanwhile, the patient will be kept on Impella pending cardiac catheterization and coronary inter vention as planned by cardiology. The patient is currently on a pressure control mode of mechanical ventilation, at rate of 18, pressure control of 20, FiO2 of 40% with a PEEP of 5. Blood gas showed a pH of 7.34 with pCO2 49 and pO2 of 92. Remains on IV heparin. He had some episodic hematuria but subsided. Fluid balance is -687 cc over the past 24 hours. Patient was receiving enteral feeding for nutritional support and currently it is on hold in preparation for cardiac catheterization. He was receiving vital AF at rate of 35 cc an hour. IV fluids are currently at KVO. The patient remains on IV Lasix. Meanwhile, the white cell count is 5.9, hemoglobin is 8.9 and a platelet count is 20. The patient's BUN is 15 with a creatinine of 0.7. Serum bicarb is at 28. Sodium levels at 137 and a potassium level is at 4.2. The patient remains on Impella with P4 support and 2.5 liters per minute of cardiac augmentation. The renal function remains stable with a BUN of 15 and a creatinine of 0.7. The LDH level is 511. Chest x-ray findings from today shows CHF, findings are essentially stable. He is afebrile. 07/17/2024, patient is being seen for a follow-up. The patient underwent a cardiac catheterization yesterday and the patient underwent successful stenting of the proximal and mid LAD. Following that, the Impella was discontinued and the patient was brought back to the intensive care unit. This morning, the patient remains sedated on propofol which is running at 25 mcg/kg/min and fentanyl at 0.5 mcg/kg/h. He remains on assist-control mode of mechanical ventilation. Pressure control cycled, with a pressure control of 20, rate of 16, FiO2 40% with a PEEP of 5. Blood gas showed a pH of 7.4 with a pCO2 40 and pO2 112. Chest x-ray shows cardiomegaly with bilateral pleural effusions and orotracheal tube is in good location. Fluid balance is plus a 1.5 L over the past 24 hours. Patient is on enteral feeding for nutritional support. A repeat CAT scan of the brain and C-spine was done yesterday and the CAT scan showed no acute intracranial process. Chronic appearing periventricular white matter ischemic changes were seen and there were less pronounced on the follow-up CAT scan. The white cell count of 5.5, hemoglobin is 8.7, platelet count is 97, BUN is at 16 with a creatinine of 0.7, bicarb is 23 and sodium levels at 135. LFTs are within normal limits. Afebrile. Hemodynamically stable on no pressors. Off the nitroglycerin drip for now. Cardiac rhythm is sinus bradycardia in the mid 50s. 07/18/2024, the patient was extubated and the patient was awake and alert and communicating. Earlier this morning, the patient was on oxygen at 2 L/min nasal cannula and chest x-ray was still showing CHF and bilateral pleural effusion and pulm vessel congestion. He was hemodynamically stable. He was off pressors. He had no complaints. As such, the patient was started on Entresto 24/25 1 tablet a day and the patient was kept on a combination of aspirin and Brilinta. The patient was also receiving Lasix 20 mg IV every 12 hours. The fluid balance is -2 L over the past 24 hours. On neurologic exam, the patient was unable to move his right upper extremity and there is an obvious right lower extremity weakness consistent with an acute CVA. Motor function on the left side was adequate at this point. Following our rounds, the patient became acutely short of breath and he became tachypneic and severe respiratory distress. He was placed on a BiPAP and the blood gas showed severe respiratory acidosis and a chest x-ray was consistent with acute pulmonary edema. Based on that, I had to intubate the patient and I placed him on the mechanical ventilator. Initial blood gases post mechanical ventilation showed a pH of 7.17 with a pCO2 of 66 and pO2 of 151 and based on that, increase the tidal volume to 450, increase the rate up to 28 and dropped FiO2 down to 80%. He remained hemodynamically stable. Slightly hypertensive. BUN is 19 with a creatinine of 0.7. Sodium levels at 139. WBC count 6.4 with a hemoglobin 8.7 and a platelet count of 107. Post intubation chest x-ray was consistent with pulmonary edema. ET tube noted to be pushed in by another 2 cm. He is currently on propofol which is running at 40 mcg/kg/min, calm and comfortable. On 07/19/2024, the patient is being seen for a follow-up. The patient remains intubated on the mechanical ventilator earlier this morning the patient was on propofol running at 50 mcg/kg/min. He failed extubation due to an acute pulmonary edema and the patient had to be reintubated. His current cardiac rhythm is sinus bradycardia. He also has conduction delay and widened QRS p robably a bundle branch block pattern. This was present since his admission. He was having few episodes of bradycardia and based on that the beta-blockers were placed on hold. He is still on IV Lasix 20 mg every 12 hours. Fluid balance is -2 L over the past 24 hours. He is on assist-control mode with rate of 28, tidal volume of 450, FiO2 of 60% with a PEEP of 5. Blood gas showed pH of 7.51 with a pCO2 of 33 and pO2 of 120. Chest x-ray still showing pulmonary edema. The patient was started on Entresto. He was started also on enteral feeding for nutritional support and the patient is on vital AF. Afebrile. No other significant issues overnight. Cardiology remains on the case. Remains on aspirin and Brilinta. Patient was evaluated today at 07/20/2024, remains in the ICU, intubated and mechanically ventilated, patient is on assist-control rate of 22 tidal volume 450 FiO2 40% and PEEP of 5 ABG showed a pO2 of 82 pCO2 35 pH of 7.50 FiO2 was cut down to 20. Increase flow rate to 60 L/min. Patient is on amiodarone at 0.5 mg/min IV fluid is running at 75 cc/h patient is scheduled to undergo repeat cardiac catheterization today. His last ejection fraction on echocardiogram was 15 to 20%. Patient failed weaning at 1 point as he developed pulmonary edema shortly after he was extubated. Patient also had a previous stent of the LAD on his initial admission he had an Impella device placed and has been removed patient continues to have right-sided weakness. Intermittently the patient is in atrial fibrillation continues on amiodarone. Again he scheduled to have cardiac catheterization today. Chest x-ray continues to show evidence of pulmonary edema. WBC count is 10.5 hemoglobin is 9.6 basic metabolic profile is normal and renal profile is normal. Evaluated today on 07/21/2024, remains in the ICU, intubated mechanically ventilated, patient underwent multiple stents to RCA and obtuse marginal 1 and he was found to have patent stent in LAD patient is on assist-control rate of 20 tidal volume 450 FiO2 40% and PEEP of 5 ABG showed a pO2 of 86 pCO2 38 pH of 7.46. Patient remains on amiodarone at 0.5 mg/min propofol 30 mg/kg/min norepinephrine is presently on hold, remains on Lasix 20 mg IV push twice daily, patient is scheduled to have CRISTINE and possible cardioversion today. Antibiotics grullon he received cefepime considering a chest x-ray continues show bibasilar infiltrates, I recommended that we start the patient on Zosyn. And will check procalcitonin. Discussed today his condition with cardiology again planning CRISTINE and cardioversion WBC count is 12.1 hemoglobin 9.5.Basic metabolic profile is normal renal profile is normal Patient was seen today on 07/22/2024, remains in the ICU, intubated and mechanically ventilated. Patient remains on assist-control rate of 20 tidal volume 450 FiO2 40% and PEEP of 5 ABG showed a pO2 of 85 pCO2 4 0 pH of 7.43, chest x-ray continues to show evidence of bilateral interstitial infiltrates/edema patient did receive Lasix and he remains on Lasix 20 mg IV push every 12 hours with marginal urine output. His procalcitonin was normal patient remains empirically on Zosyn. Chest x-ray was reviewed patient was on propofol at 5 mcg/kg/min, and I recommended stopping propofol, patient was given a short weaning trial for about half an hour on pressure support of 14 and CPAP, patient did not seem to do well with the pressure support, he became quite tachypneic, tachycardic, and he had lots of secretions coming out of the endotracheal tube. Hence no further weaning was attempted, patient be placed back on AC mode of mechanical ventilation, and he is not quite ready to wean. WBC count today is 9.6 hemoglobin 8.8 PTT is 52, basic metabolic profile is normal BUN is 32 creatinine 1.15 Objective - Vital Signs Vital signs: Vital Signs Temp 98.9 F 07/22/24 08:00 Pulse 56 L 07/22/24 11:00 Resp 20 07/22/24 11:00 BP 93/44 07/22/24 11:00 Pulse Ox 97 07/22/24 11:00 FiO2 40 07/22/24 11:42 Intake & Output 07/21/24 07/22/24 07/22/24 18:59 06:59 18:59 Intake Total 0313.229 9894.163 325.224 Output Total 615 580 285 Balance 398.991 766.163 40.224 Weight 106.7 kg Intake: IV 320 340 100 Piperacillin-Tazobactam 3 100 200 100 .375 gm In Sodium Chloride 0.9% 100 ml @ 25 mls/hr IVPB Q8H [facility] Rx#: [id number] Sodium Chloride 0.9% 1, 220 140 000 ml @ 20 mls/hr IV . Q24H [facility] Rx#:[id number] Intake, IV Titration 423.991 506.163 65.224 Amount Amiodarone 450 mg In 250 26.945 Dextrose 5% in Water 250 ml @ 0.5 MG/MIN 16.667 mls/hr IV .Q15H [facility] Rx#: [id number] Dexmedetomidine/0.9% NaCl 97.663 (Pmx) 400 mcg In Empty Bag 1 bag @ 0.2 MCG/KG/HR 5.5 mls/hr IV .[id number] [facility] Rx#:[id number] Heparin Sod,Pork in 0.45% 73.87 172.661 NaCl 25,000 unit In 0.45 % NaCl 1 250ml.bag @ 9.35 UNITS/KG/HR 10.005 mls/ hr IV .Q24H [facility] Rx#: [id number] Norepinephrine 8 mg In 20.421 Sodium Chloride 0.9% 250 ml @ 0.19 MCG/KG/MIN 33. 353 mls/hr IV .[id number] [facility] Rx#:[id number] propofoL 1,000 mg In 232.037 83.502 38.279 Empty Bag 1 bag @ 15 MCG/ KG/MIN 9.324 mls/hr IV . [id number] [facility] Rx#:[id number] Tube Feeding 210 350 70 Other 60 150 90 Output: Urine 615 580 285 Other: Voiding Method Indwelling Catheter Indwelling Catheter Indwelling Catheter # Bowel Movements 1 1 ABP, PAP, CO, CI - Last Documented Arterial Blood Pressure 139/39 - Exam GENERAL EXAM: Revealed a 78-year-old male intubated, mechanically ventilated, arousable, follows simple instructions of propofol. HEAD: Normocephalic. EYES: Normal reaction of pupils, equal size. NOSE: Clear with pink turbinates. THROAT: Dry mucous membranes, endotracheal tube is intact. NECK: No masses, no JVD. CHEST: No chest wall deformity. LUNGS: Diminished breath sounds at the bases with minimal fine crackles at the bases only CVS: Distant S1 and S2 normal with no audible murmur, regular rhythm. ABDOMEN: No hepatosplenomegaly, normal bowel sounds, no guarding or rigidity. SKIN: No rashes CENTRAL NERVOUS SYSTEM: Alert and oriented x 3 no gross focal neurologic deficit EXTREMITIES: No clubbing, trace of bipedal edema, no cyanosis. - Labs CBC & Chem 7: 07/22/24 05:26 07/22/24 10:18 Labs: Abnormal Lab Results - Last 24 Hours (Table) 07/21/24 07/21/24 07/21/24 Range/Units 12:53 15:26 18:06 RBC (4.30-5.90) m/uL Hgb (13.0-17.5) gm/dL Hct (39.0-53.0) % MCV (80.0-100.0) fL MCH (25.0-35.0) pg MCHC (31.0-37.0) g/dL RDW (11.5-15.5) % APTT 37.6 H (22.0-30.0) sec ABG HCO3 (21-25) mmol/L ABG Total CO2 (19-24) mmol/L Hemoglobin (13.0-17.5) gm/dL Sodium (137-145) mmol/L Chloride (98-107) mmol/L BUN (9-20) mg/dL Glucose (74-99) mg/dL POC Glucose (mg/dL) 134 H 143 H (70-110) mg/dL Calcium (8.4-10.2) mg/dL 07/21/24 07/22/24 07/22/24 Range/Units 23:26 00:10 05:18 RBC (4.30-5.90) m/uL Hgb (13.0-17.5) gm/dL Hct (39.0-53.0) % MCV (80.0-100.0) fL MCH (25.0-35.0) pg MCHC (31.0-37.0) g/dL RDW (11.5-15.5) % APTT 49.4 H (22.0-30.0) sec ABG HCO3 26 H (21-25) mmol/L ABG Total CO2 28 H (19-24) mmol/L Hemoglobin 8.4 L (13.0-17.5) gm/dL Sodium (137-145) mmol/L Chloride (98-107) mmol/L BUN (9-20) mg/dL Glucose (74-99) mg/dL POC Glucose (mg/dL) 124 H (70-110) mg/dL Calcium (8.4-10.2) mg/dL 07/22/24 07/22/24 07/22/24 Range/Units 05:26 05:26 05:26 RBC 4.28 L (4.30-5.90) m/uL Hgb 8.8 L (13.0-17.5) gm/dL Hct 29.1 L (39.0-53.0) % MCV 68.0 L (80.0-100.0) fL MCH 20.6 L (25.0-35.0) pg MCHC 30.3 L (31.0-37.0) g/dL RDW 16.4 H (11.5-15.5) % APTT 52.0 H (22.0-30.0) sec ABG HCO3 (21-25) mmol/L ABG Total CO2 (19-24) mmol/L Hemoglobin (13.0-17.5) gm/dL Sodium 136 L (137-145) mmol/L Chloride 108 H (98-107) mmol/L BUN 32 H (9-20) mg/dL Glucose 117 H (74-99) mg/dL POC Glucose (mg/dL) (70-110) mg/dL Calcium 7.5 L (8.4-10.2) mg/dL 07/22/24 07/22/24 Range/Units 06:21 11:48 RBC (4.30-5.90) m/uL Hgb (13.0-17.5) gm/dL Hct (39.0-53.0) % MCV (80.0-100.0) fL MCH (25.0-35.0) pg MCHC (31.0-37.0) g/dL RDW (11.5-15.5) % APTT (22.0-30.0) sec ABG HCO3 (21-25) mmol/L ABG Total CO2 (19-24) mmol/L Hemoglobin (13.0-17.5) gm/dL Sodium (137-145) mmol/L Chloride (98-107) mmol/L BUN (9-20) mg/dL Glucose (74-99) mg/dL POC Glucose (mg/dL) 126 H 131 H (70-110) mg/dL Calcium (8.4-10.2) mg/dL Microbiology - Last 24 Hours (Table) 07/16/24 09:33 Blood Culture - Final Blood Assessment and Plan Assessment: Impression: Status post cardiac arrest, [id number] CPR, downtime about 5 minutes. Acute hypoxic respiratory failure secondary to above. Patient has developed extensive pulmonary edema secondary to LV dysfunction secondary to ischemic cardiomyopathy. Pulmonary edema with bilateral pleural effusions, currently on IV Lasix with adequate urine output. Acute non-ST segment elevation myocardial infarction, status post cardiac catheterization indicating triple-vessel coronary artery disease, status post cardiac catheterization and stenting x 2 of the mid and proximal LAD and the patient is currently on a combination of aspirin and Brilinta and the Impella has been discontinued Cardiogenic shock, required Impella device, for a brief period of time Acute CVA with motor weakness in the right side, right upper extremity more than right lower extremity. Acute kidney injury, recovered and the patient is producing adequate amount of urine output Recent discharge in May 2024 for atypical chest pain and COVID-19 infection/pneumonitis Rheumatoid arthritis Hypertension Benign prostatic hyperplasia Thrombocytopenia, improving Chronic anemia Recommendation: Continue ventilatory support, patient was given a trial of weaning he did not tolerate hence he was placed back on assist-control mode of mechanical mario tilation Continue nutritional support Continue to monitor urine output Continue Entresto Not ready for weaning, failed weaning trial today not to mention the patient has significant amount of endotracheal tube secretions Condition remains critical Continue GI and DVT prophylaxis Critical care time is over 30 minutes Time with Patient: Greater than 30
[2024-07-22] MEDS: FUROSEMIDE 10 MG/ML 4 ML VIAL IV STA (12:40)
--- NOTE | 2024-07-22 16:33 | P.PN ---
Subjective Progress Note Date: 07/22/24 Hospital course: Patient is a 78-year-old male with PMH of rheumatoid arthritis, hypertension and BPH was brought to the emergency department via EMS for cardiopulmonary arrest. His initial laboratory evaluation shows WBC of 19.7, hemoglobin 14.6, MCV of 74.8, platelet count 2 8, sodium 138, potassium 4.3, chloride 117, bicarb 13, BUN 18, creatinine 1.8. His cardiac troponin has been trending upward from 0.588--->14.9. Patient was recently seen at the hospital for the complaint of chest pain. Patient was diagnosed with type II WA slightly with elevated troponins likely secondary to COVID-19 pneumonitis. Echocardiogram showed LVEF of 55% and moderate pulmonary hypertension. Viral panel negative. Chest x-ray interpreted independently shows diffuse patchy infiltrate with groundglass opacities and bilateral pleural effusion. Brain CT shows no acute intracranial process. Chest CTA is negative for pulmonary embolism and patchy opacities throughout both lungs with small bilateral pleural effusions. EKG interpreted independently shows sinus bradycardia with a regular branch block. T wave inversions in anteroseptal and lateral leads. Echocardiogram shows LVEF of 25 to 30% and ischemic cardiomyopathy with apical hypokinesis. Repeat brain CT on 07/15/2024 shows concern for suspected left parietal subacute CVA compared to previous brain CT. CAT scan of the brain was repeated again on 07/17/2024 which at this time shows no acute intracranial process. [facility] was taken [facility]24 with a successful stenting to mid and proximal LAD. Impella was taken out. Patient was extubated and was able to maintain his mean arterial pressure without Impella and pressors. Patient had worsening respiratory status. Patient reintubated. Hospital course complicated with A- fib with RVR and patient started on amiodarone drip. Patient had second intervention with stents put in OM1 of left circumflex and RCA on 07/20/2024. Patient underwent CRISTINE guided cardioversion successfully. Patient currently in sinus rhythm. Ejection fraction estimated between 35 to 40% with mild to mode rate mitral regurgitation noted. Subjective: Patient seen and examined today. No acute events overnight. Patient currently sedated and intubated on mechanical ventilation with propofol running at 40 mcg/kg/h. Objective: Vital signs reviewed General: Intubated and sedated HEENT: normocephalic, atraumatic, no tracheal deviation Respiratory: Bilateral rhonchi, mechanically ventilated CVS: perfusing all extremities, no distal gangrene, trace pitting edema GI: soft, ND : no SPT, no CVAT, heard is present Neuro: Sedated Data reviewed today: Pertinent Labs: WBC 12.1, hemoglobin 9.5, platelet count 237, sodium 138, potassium 3.9, chloride 108, bicarb 27, creatinine 0.95, glucose 123, calcium 7.7, magnesium 2.0 Pertinent imaging: Chest x-ray independently interpreted, shows bilateral interstitial opacities Assessment/Plan: #Out of the hospital cardiopulmonary arrest #NSTEMI status post stents to LAD, OM1 branch of LCx and mid RCA #Cardiogenic Shock, resolved, status post Impella and pressors #Ischemic cardiomyopathy #Recent history of atypical chest pain and COVID-19 pneumonitis #Acute encephalopathy, likely metabolic #Subacute left parietal CVA #Paroxysmal A-fib with RVR Pulmonology following, patient reintubated on 07/18/2024 due to increased dyspnea; recs appreciated Continue with dual antiplatelet therapy: Aspirin 81 mg p.o. daily and Brilinta 90 mg p.o. twice daily Continue with atorvastatin 40 mg p.o. GDMT: Entresto 24-26 mg twice daily, metoprolol tartrate 50 mg p.o. twice daily, added spironolactone 25 mg p.o. daily Cardiology note reviewed, recs appreciated Patient started on oral amiodarone on 200 mg p.o. daily and Eliquis 5 mg p.o. twice daily Continue on IV furosemide 20 mg every 12 hours, monitor electrolytes Neurology following, likely had watershed infarct due to cardiac arrest Continue with weaning trials PT/OT/speech therapy once patient is extubated Seroquel has been discontinued Procalcitonin 0.22 Suggest discontinuation of Zosyn #Bandemia, likely reactive to above, resolved #Normocytic anemia secondary to above -Improving #Anion gap metabolic acidosis secondary to lactic acid, resolved #Euthyroid sick syndrome secondary above TSH 7.63, free T4 - 0.8 #Hypermagnesemia, resolved Chronic conditions: BPH: Resume Flomax Hypertension: Hold nifedipine DVT prophylaxis: Heparin drip GI prophylaxis: IV Protonix 40 mg p.o. daily CODE STATUS: Full code Anticipated discharge place: Pending clinical course Patient is critically ill, needs close monitoring. Prognosis guarded. I have seen and evaluated the patient today. Discussed with the resident and agree with the residents finding and plan as documented in the resident's note. Changes highlighted in blue font. Objective - Vital Signs Vital signs: Vital Signs Temp 98.4 F 07/22/24 12:00 Pulse 55 L 07/22/24 14:00 Resp 20 07/22/24 14:00 BP 97/44 07/22/24 14:00 Pulse Ox 99 07/22/24 14:00 FiO2 40 07/22/24 12:00 Intake & Output 07/21/24 07/22/24 07/22/24 18:59 06:59 18:59 Intake Total 4107.407 5251.163 458.065 Output Total 615 580 345 Balance 398.991 766.163 113.065 Weight 106.7 kg Intake: IV 320 340 100 Piperacillin-Tazobactam 3 100 200 100 .375 gm In Sodium Chloride 0.9% 100 ml @ 25 mls/hr IVPB Q8H [facility] Rx#: [id number] Sodium Chloride 0.9% 1, 220 140 000 ml @ 20 mls/hr IV . Q24H [facility] Rx#:[id number] Intake, IV Titration 423.991 506.163 98.065 Amount Amiodarone 450 mg In 250 26.945 Dextrose 5% in Water 250 ml @ 0.5 MG/MIN 16.667 mls/hr IV .Q15H [facility] Rx#: [id number] Dexmedetomidine/0.9% NaCl 97.663 (Pmx) 400 mcg In Empty Bag 1 bag @ 0.2 MCG/KG/HR 5.5 mls/hr IV .[id number] [facility] Rx#:[id number] Heparin Sod,Pork in 0.45% 73.87 172.661 NaCl 25,000 unit In 0.45 % NaCl 1 250ml.bag @ 9.35 UNITS/KG/HR 10.005 mls/ hr IV .Q24H [facility] Rx#: [id number] Norepinephrine 8 mg In 20.421 Sodium Chloride 0.9% 250 ml @ 0.19 MCG/KG/MIN 33. 353 mls/hr IV .[id number] [facility] Rx#:[id number] propofoL 1,000 mg In 232.037 83.502 71.120 Empty Bag 1 bag @ 15 MCG/ KG/MIN 9.324 mls/hr IV . [id number] [facility] Rx#:[id number] Tube Feeding 210 350 140 Other 60 150 120 Output: Urine 615 580 345 Other: Voiding Method Indwelling Catheter Indwelling Catheter Indwelling Catheter # Bowel Movements 1 1 ABP, PAP, CO, CI - Last Documented Arterial Blood Pressure 139/39 - Labs CBC & Chem 7: 07/22/24 05:26 07/22/24 15:19 Labs: Abnormal Lab Results - Last 24 Hours (Table) 07/21/24 07/21/24 07/21/24 Range/Units 15:26 18:06 23:26 RBC (4.30-5.90) m/uL Hgb (13.0-17.5) gm/dL Hct (39.0-53.0) % MCV (80.0-100.0) fL MCH (25.0-35.0) pg MCHC (31.0-37.0) g/dL RDW (11.5-15.5) % APTT 37.6 H 49.4 H (22.0-30.0) sec ABG HCO3 (21-25) mmol/L ABG Total CO2 (19-24) mmol/L Hemoglobin (13.0-17.5) gm/dL Sodium (137-145) mmol/L Chloride (98-107) mmol/L BUN (9-20) mg/dL Glucose (74-99) mg/dL POC Glucose (mg/dL) 143 H (70-110) mg/dL Calcium (8.4-10.2) mg/dL 07/22/24 07/22/24 07/22/24 Range/Units 00:10 05:18 05:26 RBC 4.28 L (4.30-5.90) m/uL Hgb 8.8 L (13.0-17.5) gm/dL Hct 29.1 L (39.0-53.0) % MCV 68.0 L (80.0-100.0) fL MCH 20.6 L (25.0-35.0) pg MCHC 30.3 L (31.0-37.0) g/dL RDW 16.4 H (11.5-15.5) % APTT (22.0-30.0) sec ABG HCO3 26 H (21-25) mmol/L ABG Total CO2 28 H (19-24) mmol/L Hemoglobin 8.4 L (13.0-17.5) gm/dL Sodium (137-145) mmol/L Chloride (98-107) mmol/L BUN (9-20) mg/dL Glucose (74-99) mg/dL POC Glucose (mg/dL) 124 H (70-110) mg/dL Calcium (8.4-10.2) mg/dL 07/22/24 07/22/24 07/22/24 Range/Units 05:26 05:26 06:21 RBC (4.30-5.90) m/uL Hgb (13.0-17.5) gm/dL Hct (39.0-53.0) % MCV (80.0-100.0) fL MCH (25.0-35.0) pg MCHC (31.0-37.0) g/dL RDW (11.5-15.5) % APTT 52.0 H (22.0-30.0) sec ABG HCO3 (21-25) mmol/L ABG Total CO2 (19-24) mmol/L Hemoglobin (13.0-17.5) gm/dL Sodium 136 L (137-145) mmol/L Chloride 108 H (98-107) mmol/L BUN 32 H (9-20) mg/dL Glucose 117 H (74-99) mg/dL POC Glucose (mg/dL) 126 H (70-110) mg/dL Calcium 7.5 L (8.4-10.2) mg/dL 07/22/24 Range/Units 11:48 RBC (4.30-5.90) m/uL Hgb (13.0-17.5) gm/dL Hct (39.0-53.0) % MCV (80.0-100.0) fL MCH (25.0-35.0) pg MCHC (31.0-37.0) g/dL RDW (11.5-15.5) % APTT (22.0-30.0) sec ABG HCO3 (21-25) mmol/L ABG Total CO2 (19-24) mmol/L Hemoglobin (13.0-17.5) gm/dL Sodium (137-145) mmol/L Chloride (98-107) mmol/L BUN (9-20) mg/dL Glucose (74-99) mg/dL POC Glucose (mg/dL) 131 H (70-110) mg/dL Calcium (8.4-10.2) mg/dL Microbiology - Last 24 Hours (Table) 07/16/24 09:33 Blood Culture - Final Blood
[2024-07-22 17:31] LABS: Glucose,Whole Blood 133 mg/dL (70-110)
[2024-07-22 17:46] LABS: Glucose,Whole Blood 137 mg/dL (70-110)
[2024-07-23 00:27] LABS: Glucose,Whole Blood 134 mg/dL (70-110)
[2024-07-23 05:43] LABS: ABG Base Excess 2.4 mmol/L; ABG HCO3 27 mmol/L (21-25); ABG PCO2 40 mmHg (35-45); ABG PH 7.43 (7.35-7.45); ABG PO2 95 mmHg (83-108); ABG TCO2 28 mmol/L (19-24); Allen Test Performed? Yes
[2024-07-23 06:19] LABS: Glucose,Whole Blood 124 mg/dL (70-110)
[2024-07-23 06:23] LABS: Anisocytosis Slight; Basophils % (A) 0 %; Eosinophils # (A) 0.4 k/uL (0-0.7); Eosinophils % (A) 4 %; HCT 29.7 % (39.0-53.0); HGB 8.9 gm/dL (13.0-17.5); Hypochromasia Marked; Lymphocytes # (A) 1.4 k/uL (1.0-4.8); Lymphocytes % (A) 15 %; MCH 20.5 pg (25.0-35.0); MCHC 29.9 g/dL (31.0-37.0); MCV 68.4 fL (80.0-100.0); Mean Platelet Volume 7.5; Microcytosis Marked; Monocytes # (A) 0.6 k/uL (0-1.0); Monocytes % (A) 6 %; Neutrophils # (A) 6.9 k/uL (1.3-7.7); Neutrophils % (A) 72 %; Platelet Count 316 k/uL (150-450); Poikilocytosis Slight; RBC 4.34 m/uL (4.30-5.90); RDW 16.6 % (11.5-15.5); WBC 9.6 k/uL (3.8-10.6)
[2024-07-23 06:33] LABS: African American GFR (CKD) 62 (>60 ml/min/1.73 sqM); Anion Gap 6 mmol/L; Blood Urea Nitrogen 40 mg/dL (9-20); Carbon Dioxide 27 mmol/L (22-30); Chloride 106 mmol/L (98-107); Glucose 112 mg/dL (74-99); Non-African American GFR(CKD) 53 (>60 ml/min/1.73 sqM); Potassium 3.7 mmol/L (3.5-5.1); Sodium 139 mmol/L (137-145)
--- NOTE | 2024-07-23 07:32 | P.PN ---
Subjective Progress Note Date: 07/23/24 PROGRESS NOTE The patient is a 78-year-old male who was admitted to the hospital on July 11 with cardiac arrest, severe cardiomyopathy and severe triple-vessel disease. He was evaluated by Dr. Abrams, underwent an Impella placement. His echocardiogram on presentation showed an ejection fraction 25 to 30% with anterior apical hypokinesis. On July 16 he underwent stenting of the LAD with removal of the Impella CP. He remains intubated, sedated. He is having episodes of paroxysmal atrial fibrillation with sinus bradycardia at times. He has good urine output. He is scheduled to undergo PCI of the RCA and the left circumflex today. He is on no vasopressors. He was found to have right-sided weakness suggestive of a cerebrovascular accident. Repeat echocardiogram on July 14 showed an e jection fraction of 40% while he was on the Impella. He was extubated but had to be reintubated because of respiratory distress. He has no evidence of ventricular ectopic activity. July 21: The patient remains intubated and sedated, in atrial fibrillation. He had episodes of recurrent rapid ventricle response. He is on beta-blockers, well- tolerated. He continues to be on IV amiodarone. He underwent stenting of the left circumflex and RCA yesterday. He is on no vasopressors. His urinary output is good. There is no evidence of ventricular tachycardia. July 22: The patient remains intubated he is more awake. He underwent CRISTINE guided cardioversion yesterday with presybeterian of sinus mechanism. He continues to be in sinus mechanism today, his CRISTINE showed an ejection fraction of 35 to 40% with no reported segmental wall motion abnormality. His urinary output is stable. He is on no vasopressors. He has no evidence of ventricular ectopic activity. He continues to be on IV heparin and IV amiodarone. He is following commands. July 23: The patient remains intubated, attempt to wean yesterday were unsuccessful. He continues to be in sinus mechanism with sinus bradycardia but no pauses. He is sedated at this time. His urinary output has been stable. He had no evidence of ventricular ectopic activity. He has been started on oral amiodarone and on Eliquis. Medications: Amiodarone 200 mg daily, aspirin, Lipitor 40 mg daily, Lasix 20 mg IV every 12 hours, Entresto 24-26 mg daily, Flomax, Brilinta 90 mg twice a day, Eliquis 5 mg twice a day, metoprolol 50 mg twice a day, Aldactone 25 mg daily PHYSICAL EXAMINATION: Blood pressure 124/56 heart rate 52, intubated, sedated LUNGS: Clear to auscultation HEART: Regular rate and rhythm, S1, S2. No S3. Systolic ejection murmur ABDOMEN: Soft, obese, no organomegaly EXTREMETIES: No edema, right sided weakness LAB: Hemoglobin 8.9, platelets count 316, potassium 3.7, BUN 40, creatinine 1.29. IMPRESSION: 1. Cardiac arrest with severe cardiomyopathy and cardiogenic shock status post Impella 2. Severe triple-vessel disease, status post stenting of the LAD and stenting of the left circumflex and RCA on July 20 3. Paroxysmal atrial fibrillation alternating with sinus bradycardia, back in sinus mechanism post cardioversion 4. Evidence suggests right sided weakness related to a cerebrovascular accident 5. Respiratory failure with reintubation, failed attempt to wean yesterday 6. Acute renal injury, resolved 7. History of hypertension PLAN: 1. Decrease beta-kaela because of sinus bradycardia 2. Probable attempt to wean again today 3. Follow renal functions 4. Change furosemide to 20 mg daily 5. Depending on his progress further recommendations will be made Objective - Vital Signs Vital signs: Vital Signs Temp 98 F 07/23/24 04:00 Pulse 50 L 07/23/24 07:00 Resp 20 07/23/24 07:00 BP 93/47 07/23/24 07:00 Pulse Ox 98 07/23/24 07:00 FiO2 40 07/23/24 04:00 Intake & Output 07/22/24 07/23/24 07/23/24 18:59 06:59 18:59 Intake Total 854.830 752.415 35 Output Total 640 640 45 Balance 214.830 112.415 -10 Weight 107.1 kg Intake: IV 200 100 Piperacillin-Tazobactam 3 200 100 .375 gm In Sodium Chloride 0.9% 100 ml @ 25 mls/hr IVPB Q8H [facility] Rx#: [id number] Intake, IV Titration 224.830 177.415 Amount Amiodarone 450 mg In 26.945 Dextrose 5% in Water 250 ml @ 0.5 MG/MIN 16.667 mls/hr IV .Q15H [facility] Rx#: [id number] Sodium Chloride 0.9% 1, 40 000 ml @ 20 mls/hr IV . Q24H [facility] Rx#:[id number] propofoL 1,000 mg In 157.885 177.415 Empty Bag 1 bag @ 15 MCG/ KG/MIN 9.324 mls/hr IV . [id number] [facility] Rx#:[id number] Tube Feeding 280 385 35 Other 150 90 Output: Urine 640 640 45 Other: Voiding Method Indwelling Catheter Indwelling Catheter # Bowel Movements 1 ABP, PAP, CO, CI - Last Documented Arterial Blood Pressure 139/39 - Labs CBC & Chem 7: 07/23/24 05:51 07/23/24 05:40 Labs: Abnormal Lab Results - Last 24 Hours (Table) 07/22/24 07/22/24 07/22/24 Range/Units 11:48 17:30 17:45 Hgb (13.0-17.5) gm/dL Hct (39.0-53.0) % MCV (80.0-100.0) fL MCH (25.0-35.0) pg MCHC (31.0-37.0) g/dL RDW (11.5-15.5) % ABG HCO3 (21-25) mmol/L ABG Total CO2 (19-24) mmol/L ABG O2 Saturation (94-97) % Hemoglobin (13.0-17.5) gm/dL BUN (9-20) mg/dL Creatinine (0.66-1.25) mg/dL Glucose (74-99) mg/dL POC Glucose (mg/dL) 131 H 133 H 137 H (70-110) mg/dL Calcium (8.4-10.2) mg/dL 07/23/24 07/23/24 07/23/24 Range/Units 00:24 05:40 05:42 Hgb (13.0-17.5) gm/dL Hct (39.0-53.0) % MCV (80.0-100.0) fL MCH (25.0-35.0) pg MCHC (31.0-37.0) g/dL RDW (11.5-15.5) % ABG HCO3 27 H (21-25) mmol/L ABG Total CO2 28 H (19-24) mmol/L ABG O2 Saturation 98.0 H (94-97) % Hemoglobin 8.2 L (13.0-17.5) gm/dL BUN 40 H (9-20) mg/dL Creatinine 1.29 H (0.66-1.25) mg/dL Glucose 112 H (74-99) mg/dL POC Glucose (mg/dL) 134 H (70-110) mg/dL Calcium 8.0 L (8.4-10.2) mg/dL 07/23/24 07/23/24 Range/Units 05:51 06:17 Hgb 8.9 L (13.0-17.5) gm/dL Hct 29.7 L (39.0-53.0) % MCV 68.4 L (80.0-100.0) fL MCH 20.5 L (25.0-35.0) pg MCHC 29.9 L (31.0-37.0) g/dL RDW 16.6 H (11.5-15.5) % ABG HCO3 (21-25) mmol/L ABG Total CO2 (19-24) mmol/L ABG O2 Saturation (94-97) % Hemoglobin (13.0-17.5) gm/dL BUN (9-20) mg/dL Creatinine (0.66-1.25) mg/dL Glucose (74-99) mg/dL POC Glucose (mg/dL) 124 H (70-110) mg/dL Calcium (8.4-10.2) mg/dL
[2024-07-23] MEDS: AMIODARONE 200 MG TAB PO SCH (08:31)
[2024-07-23] MEDS: METOPROLOL TARTRATE 25 MG TAB PO SCH (08:31)
[2024-07-23] MEDS: FUROSEMIDE 10 MG/ML 2 ML VIAL IV SCH (08:32)
--- NOTE | 2024-07-23 09:06 | XR ---
EXAMINATION TYPE: XR chest 1V portable DATE OF EXAM: 07/23/2024 5:16 AM COMPARISON: Chest radiographs from CLINICAL INDICATION: Male, 78 years old with history of intubated; [facility] TECHNIQUE: XR chest 1V portable Frontal view of the chest. FINDINGS: Lungs/Pleura: No evidence of focal consolidation or pneumothorax. Blunting of the costophrenic angles is present. Pulmonary vascularity: Pulmonary vascular congestion. Heart/mediastinum: Cardiomediastinal silhouette is unremarkable. Musculoskeletal: No acute osseous pathology. Other findings: None Lines/Tubes: Endotracheal tube with distal tip 1.8 cm above the santino. Nasogastric tube with side-port projecting over the distal esophagus. Left central venous catheter with distal tip at the cavoatrial junction. IMPRESSION: 1. Endotracheal tube in appropriate position. 2. Nasogastric tube in appropriate position 3. Suspected layering bilateral pleural effusions. 4. Mild pulmonary edema. [facility], , 07/23/2024 9:04 AM
--- NOTE | 2024-07-23 09:58 | P.PN ---
Subjective Progress Note Date: 07/22/24 Patient was initially seen by Dr. Urbano Arteaga. Please refer to his note for details. Patient is a 78-year-old male with outside cardiopulmonary arrest. Has acute to subacute right sided weakness and left parietal stroke. Patient was seen for a follow-up. Patient is intubated, sedated with propofol 25 mcg/kg/min. Patient is obtunded. He is sedated as well. Please refer to examination below. Does not respond to the questions, although does move his left leg on commands. Spoke to the nurse, who mentioned that patient has been on very low-dose propofol 5 mcg/kg/min all night long. He underwent sedation holiday for about 2 hours, but he started becoming tachypneic, breathing at 42 minutes, and became restless. Therefore he was put back on sedation. Some of the work-up during this hospital visit consisted of: Ammonia is 18 Vitamin B12: 414 Folate: 12.5 TSH: 7.630, free T4 0.80 Lipid panel: TG 150, Cholestrol 130, LDL [address] of the head is reported as no acute finding. I reviewed the CT and there is a lot of artifact it is hard to appreciate any acute or subacute ischemia. I felt there is hypoattenuation on the left frontal parietal region but again it is hard to assess. Carotid duplex is reported as atherosclerotic plaque in present with may have mild to moderate internal carotid artery narrowing on the left just above 50. Unable to visualize right vertebral artery. 2D echo was reported as severe cardiomyopathy with wall motion abnormality including apical hypokinesis. Ejection fraction of 25 to 30%. Repeat CT head on 07/15/2024: reported as no acute intracranial bleed. Focal region of low-attenuation within the left parietal lobe which may represent an age indeterminate infarct. Consider further evaluation with MRI. I also pe rsonally reviewed the CT and felt the patient has subacute infarct in the left parietal region. Agree with Dr. Arteaga. MOst recent CT of the head is reported as no acute intracranial process. CT head shows hypodensity over the left frontal parietal region. I personally reviewed CT head agree with the findings. CT cervical spine is reported as no acute osseous abnormality cervical spine. Objective - Vital Signs Vital signs: Vital Signs Temp 98.4 F 07/22/24 12:00 Pulse 57 L 07/22/24 13:00 Resp 20 07/22/24 13:00 BP 101/48 07/22/24 13:00 Pulse Ox 100 07/22/24 13:00 FiO2 40 07/22/24 12:00 Intake & Output 07/21/24 07/22/24 07/22/24 18:59 06:59 18:59 Intake Total 9946.216 8482.163 458.065 Output Total 615 580 345 Balance 398.991 766.163 113.065 Weight 106.7 kg Intake: IV 320 340 100 Piperacillin-Tazobactam 3 100 200 100 .375 gm In Sodium Chloride 0.9% 100 ml @ 25 mls/hr IVPB Q8H [facility] Rx#: [id number] Sodium Chloride 0.9% 1, 220 140 000 ml @ 20 mls/hr IV . Q24H [facility] Rx#:[id number] Intake, IV Titration 423.991 506.163 98.065 Amount Amiodarone 450 mg In 250 26.945 Dextrose 5% in Water 250 ml @ 0.5 MG/MIN 16.667 mls/hr IV .Q15H [facility] Rx#: [id number] Dexmedetomidine/0.9% NaCl 97.663 (Pmx) 400 mcg In Empty Bag 1 bag @ 0.2 MCG/KG/HR 5.5 mls/hr IV .[id number] [facility] Rx#:[id number] Heparin Sod,Pork in 0.45% 73.87 172.661 NaCl 25,000 unit In 0.45 % NaCl 1 250ml.bag @ 9.35 UNITS/KG/HR 10.005 mls/ hr IV .Q24H [facility] Rx#: [id number] Norepinephrine 8 mg In 20.421 Sodium Chloride 0.9% 250 ml @ 0.19 MCG/KG/MIN 33. 353 mls/hr IV .[id number] [facility] Rx#:[id number] propofoL 1,000 mg In 232.037 83.502 71.120 Empty Bag 1 bag @ 15 MCG/ KG/MIN 9.324 mls/hr IV . [id number] [facility] Rx#:[id number] Tube Feeding 210 350 140 Other 60 150 120 Output: Urine 615 580 345 Other: Voiding Method Indwelling Catheter Indwelling Catheter Indwelling Catheter # Bowel Movements 1 1 ABP, PAP, CO, CI - Last Documented Arterial Blood Pressure 139/39 - Exam Patient is intubated, sedated on propofol 25 mcg/kg/min. He does open his eyes, makes some eye contact but not consistent. He tries to move his head towards the examiner on either side. His pupils are equal, round and reacting, oculocephalics are elevated. Patient is breathing over the ventilator. He did not squeeze hands. Patient was seen rolling his left leg spontaneously, as well did it on command. He did not move or rolled his right leg. He did not move his arms on either side. Reflexes are diminished and plantars are flat. Patient has peripheral edema. Abdomen is soft nontender. No obvious seizure- like activity. As per nursing report, when sedation holiday was done, patient was moving his left arm and left leg, but not much moving his right arm, very slightly the right foot was moving. He was following some directions. - Labs CBC & Chem 7: 07/23/24 05:51 07/23/24 05:40 Labs: Abnormal Lab Results - Last 24 Hours (Table) 07/21/24 07/21/24 07/21/24 Range/Units 15:26 18:06 23:26 RBC (4.30-5.90) m/uL Hgb (13.0-17.5) gm/dL Hct (39.0-53.0) % MCV (80.0-100.0) fL MCH (25.0-35.0) pg MCHC (31.0-37.0) g/dL RDW (11.5-15.5) % APTT 37.6 H 49.4 H (22.0-30.0) sec ABG HCO3 (21-25) mmol/L ABG Total CO2 (19-24) mmol/L Hemoglobin (13.0-17.5) gm/dL Sodium (137-145) mmol/L Chloride (98-107) mmol/L BUN (9-20) mg/dL Glucose (74-99) mg/dL POC Glucose (mg/dL) 143 H (70-110) mg/dL Calcium (8.4-10.2) mg/dL 07/22/24 07/22/24 07/22/24 Range/Units 00:10 05:18 05:26 RBC 4.28 L (4.30-5.90) m/uL Hgb 8.8 L (13.0-17.5) gm/dL Hct 29.1 L (39.0-53.0) % MCV 68.0 L (80.0-100.0) fL MCH 20.6 L (25.0-35.0) pg MCHC 30.3 L (31.0-37.0) g/dL RDW 16.4 H (11.5-15.5) % APTT (22.0-30.0) sec ABG HCO3 26 H (21-25) mmol/L ABG Total CO2 28 H (19-24) mmol/L Hemoglobin 8.4 L (13.0-17.5) gm/dL Sodium (137-145) mmol/L Chloride (98-107) mmol/L BUN (9-20) mg/dL Glucose (74-99) mg/dL POC Glucose (mg/dL) 124 H (70-110) mg/dL Calcium (8.4-10.2) mg/dL 07/22/24 07/22/24 07/22/24 Range/Units 05:26 05:26 06:21 RBC (4.30-5.90) m/uL Hgb (13.0-17.5) gm/dL Hct (39.0-53.0) % MCV (80.0-100.0) fL MCH (25.0-35.0) pg MCHC (31.0-37.0) g/dL RDW (11.5-15.5) % APTT 52.0 H (22.0-30.0) sec ABG HCO3 (21-25) mmol/L ABG Total CO2 (19-24) mmol/L Hemoglobin (13.0-17.5) gm/dL Sodium 136 L (137-145) mmol/L Chloride 108 H (98-107) mmol/L BUN 32 H (9-20) mg/dL Glucose 117 H (74-99) mg/dL POC Glucose (mg/dL) 126 H (70-110) mg/dL Calcium 7.5 L (8.4-10.2) mg/dL 07/22/24 Range/Units 11:48 RBC (4.30-5.90) m/uL Hgb (13.0-17.5) gm/dL Hct (39.0-53.0) % MCV (80.0-100.0) fL MCH (25.0-35.0) pg MCHC (31.0-37.0) g/dL RDW (11.5-15.5) % APTT (22.0-30.0) sec ABG HCO3 (21-25) mmol/L ABG Total CO2 (19-24) mmol/L Hemoglobin (13.0-17.5) gm/dL Sodium (137-145) mmol/L Chloride (98-107) mmol/L BUN (9-20) mg/dL Glucose (74-99) mg/dL POC Glucose (mg/dL) 131 H (70-110) mg/dL Calcium (8.4-10.2) mg/dL Microbiology - Last 24 Hours (Table) 07/16/24 09:33 Blood Culture - Final Blood Assessment and Plan Assessment: This is a 78-year-old gentleman having shortness of breath and presents to our facility on 07/11/2024 because out of the hospital cardiopulmonary arrest lastin g for 5 minutes. Found to have severe underlying multivessel coronary artery disease, ischemic cardiomyopathy with ejection fraction of 15 to 20% and had Impella placed on 07/12/2024. First his right side weakness may be began on 07/13/2024 but it was hard to assess because he was on sedation. Patient was initially placed on heparin, but now on antiplatelets. Subacute ischemic stroke over the left parietal/frontal appears water shed infarct likely due to cardiopulmonary arrest. Has acute right hemiparesis. No IV thrombolytic since patient is on heparin drip and is outside the window and the risk outweigh the benefit. Altered Mental status multifactorial: Due to sedation, stroke----with sedation holiday he was following simple commands. Underlying history of multivessel coronary artery disease Acute non-STEMI Ischemic cardiomyopathy with ejection fraction of 15 to 20% status post Impella Out of the hospital cardiopulmonary arrest lasting for 5 minutes Acute kidney injury, recovered Rheumatoid arthritis Hypertension BPH Plan: Patient is on aspirin 81 mg, Brilinta 90 mg twice daily and Lipitor 40 mg nightly. Patient is off heparin drip. Patient has failed extubation trial today. Perhaps we will attempt extubation tomorrow. Once the patient is extubated recommend to pursue with MRI of the brain. Neurochecks Cardiac monitoring PT OT are consulted NO need for EEG since this is not seizure and patient is following commands after sedation holiday. Cardiothoracic team is consulted for CABG evaluation Will defer the rest of the medical management to primary and other specialist For DVT prophylaxis the patient is on heparin drip Discussed with patient's nurse in detail.
[2024-07-23] MEDS: POTASSIUM BICARBONATE/CIT AC 20 MEQ TABLET.EFF NG-TUBE SCH (10:10)
[2024-07-23 11:28] LABS: Glucose,Whole Blood 134 mg/dL (70-110)
--- NOTE | 2024-07-23 13:03 | P.PN ---
Subjective Progress Note Date: 07/23/24 Principal diagnosis: Cardiac arrest and acute hypoxic respiratory failure This is a 78-year-old male patient with a history of rheumatoid arthritis, hypertension, BPH. He was recently here in May for atypical chest pain and COVID-19 pneumonitis. Discharged home on May 15, 2024. Since that time he had been doing well. Pain the patient was having a 2 to 3-day history of worsening shortness of breath. He was active yesterday and cleaning out his garage and did complain of shortness of breath and some chest discomfort. He developed worsening shortness of breath throughout the night. EMS was called and the arrival the patient had collapse. He was pulseless and CPR was started taking approximately 5 minutes until return of spontaneous circulation. He was brought in and being assisted with a bag valve mask device and a pulse ox of 74 and then intubated in the emergency department. He was brought up to the intensive care unit. He is currently intubated, sedated on the mechanical ventilator at a rate of 24, tidal volume 450, FiO2 90% and a PEEP of 10. Blood gases had revealed a PaO2 of 70, pCO2 of 62 and a pH of 7.14 on 100% FiO2. He is on fentanyl at 1.5 mcg/kg/h. He is currently on a heparin drip per weight- based protocol. Norepinephrine at 13.5 mcg/min. Propofol at 30 mcg/kg/min. CT scan of the brain revealed no acute findings. CT angiogram revealed no evidence of pulmonary embolism. There is small bilateral effusions. Some patchy airspace opacity/consolidation throughout both lungs. Mild groundglass opacities. White count 19.7. Hemoglobin 14.6. Platelets 208. Sodium 138. Potassium 4.3. Bicarb 13. BUN 18. Creatinine 1.13. Glucose 313. Troponin 0.588. proBNP 2770. TSH 7.36. Viral screen is negative. The patient is seen today July 12, 2024 in follow-up in the intensive care unit. He remains intubated sedated on the mechanical ventilator. Currently in assist-control mode with a rate of 30, tidal volume 450, FiO2 40% and a PEEP of 10. Morning blood gases revealed a PaO2 of 163, pCO2 of 26 and a pH of 7.49 and 50% FiO2. The PEEP will be decreased to 5. He is currently on cefazolin. Remains on bronchodilators. He is continued on a heparin drip per weight-based protocol. Norepinephrine at 0.03 mcg/kg/min. Propofol at 35 mcg/kg/min. Fentanyl drip at 1.25 mcg/kg/h. White count 9.6. Hemoglobin 11.4. Platelets 166. Sodium 136. Potassium 3.9. Bicarb 18. BUN 29. Creatinine 1.47. Glucose 114. Continue tube feedings of vital AF at a rate of 10 with a goal of 57. Will be on hold for cardiac catheterization today 07/13/2024, the patient is being seen for a follow-up. The patient remains intubated on the mechanical ventilator. He requires mechanical support for his cardiogenic shock postcardiac arrest and the patient is an Impella with a P7 support and a 3.1 L/min of augmentation. The patient remains on sedatives and the patient is currently on propofol the patient is 0.7. On the mechanical ventilator at a rate of 30, tidal volume of 450, FiO2 40% with PEEP of 5. Blood gas showed pH of 7.46 with a pCO2 of 27 and pO2 of 97. Chest x-ray shows cardiomegaly without any acute abnormalities. Orotracheal tubes are in good perfusion. The patient is currently on KVO IV fluids. The patient is on no pressors and the patient was taken off norepinephrine and is producing adequate amount of urine output in the order of 50 cc an hour. He remains on IV heparin. Creatinine is improved and the patient's creatinine peaked at 1.47 and currently is down to 1.08. He has a left subclavian triple-lumen catheter in place. Pharmacy Clinical Specialist on the case and the patient underwent a cardiac catheterization on 07/12/2024 and the patient was found to have extremely calcified right and left coronary system with evidence of triple-vessel coronary artery disease and severely elevated left ventricular end-diastolic pressure. The white cell count at 7.9 with a hemoglobin 10.8 and a platelet count of 123. Sodium levels at 135, bicarbonate 18, BUN 27 with a creatinine of 1.08. LDH lev el is at 984. The echocardiogram was completed and the patient was found to have severe impairment of the LV function with an ejection fraction of 25 to 30%. There is also severe cardiomyopathy with wall motion abnormalities involving the apical area that was quite hypokinetic. The patient remains on aspirin. The patient remains on statins and the patient is currently on Lipitor 40 mg p.o. daily. Remains on IV heparin. He is also on vital AF for enteral feeding and nutritional support. Pharmacy Clinical Specialist on the case. Cardiothoracic surgery was also involved in his care. The patient was deemed a high surgical risk for coronary intervention and bypass. On 07/14/2024, the patient is being seen for a follow-up. The patient remains sedated and the patient is currently on a combination of propofol running at 40 mcg/kg/min and fentanyl at 0.75 mcg/kg/h. The patient remains well sedated on mechanical ventilator and Impella for mechanical support for cardiogenic shock. This morning, the patient's Impella has been switched to P4 support with an augmentation of 2.5 L/min. The patient remains off pressors. Is producing adequate amount of urine output. Fluid balance is +1 L over the past 24 hours. He is hemolyzing and the hemoglobin is currently down to 9.9. Most recent LDH is at 946. At the same time, the patient remains on the mechanical ventilator. He is on assist-control mode with rate of 18, tidal volume of 450, FiO2 40% with a PEEP of 5. The blood gas from today shows a pH of 7.33 with a pCO2 of 41 and pO2 of 97. Chest x-ray is consistent with CHF/increased incisional markings consistent with heart failure. Orotracheal tube is in a good location. The patient has diffuse interstitial pattern bilaterally along with cardiomegaly and he has developed some small bilateral pleural effusions worse on the left. He remains on IV heparin. Remains on enteral feeding for additional support and the patient is currently on vital AF at rate of 35 cc an hour. IV fluids are currently at KVO. The patient's cardiac rhythm is sinus. The white cell count is 6.7 with a hemoglobin 9.9 and a platelet count of 106. The BUN is 17 with a creatinine of 0.8 and a sodium levels at 137, bicarb is at 22. 07/15/2024, the patient is being seen for a follow-up. The patient has signs of anoxic encephalopathy. The patient was given sedation holiday yesterday and he did not demonstrate adequate neurologic recovery. It was noted that he was not moving his right side effectively compared to the left. Based on that, the patient was placed back on propofol which is currently running at 40 mcg/kg/min. Attempts to wean off his Impella failed yesterday the patient became hypo tensive. The patient was given IV fluids and norepinephrine and the patient is currently off norepinephrine. He has Impella is augmenting at P4 level with 2.5 L/min augmentation. Fluid balance is +600 cc over the past 24 hours and the patient is producing urine output in the order of 30 to 40 cc an hour. No diuretics for now. Chest x-ray still showing CHF and bilateral pleural effusion right more than left. Remains on mechanical ventilator, assist-control mode with rate of 16, tidal volume of 450, FiO2 40% with a PEEP of 5. pH is 7.34 with a pCO2 of 43 and pO2 of 86. He is doing abdominal breathing and based on that, the patient was switched to pressure control mode of mechanical mario tilation. He is on vital AF at a rate of 35 cc an hour. The white cell count is 7.4, hemoglobin 9.6, his platelet count is at 116. LDH level is 625. Electrolytes are all within normal limits with a BUN of 14 and a creatinine of 0.7. Noted the patient's platelet count has dropped during this current admission and the patient remains on IV heparin. A limited echocardiogram was done yesterday and the patient was found to have impaired LV function with an estimated ejection fraction of around 40%. The patient also had segmental wall motion abnormalities. There was moderate LV dysfunction based on the echocardiogram. 07/16/2024, the patient is being seen for a follow-up. Events from yesterday was noted. Following a failed sedation holiday, the patient was noted to have some right-sided weakness. Based on that, a CAT scan of the brain was done and it showed a low-attenuation area in the left parietal lobe suspecting an evolving stroke. Another sedation holiday will be given today. Meanwhile, the patient will be kept on Impella pending cardiac catheterization and coronary inter vention as planned by cardiology. The patient is currently on a pressure control mode of mechanical ventilation, at rate of 18, pressure control of 20, FiO2 of 40% with a PEEP of 5. Blood gas showed a pH of 7.34 with pCO2 49 and pO2 of 92. Remains on IV heparin. He had some episodic hematuria but subsided. Fluid balance is -687 cc over the past 24 hours. Patient was receiving enteral feeding for nutritional support and currently it is on hold in preparation for cardiac catheterization. He was receiving vital AF at rate of 35 cc an hour. IV fluids are currently at KVO. The patient remains on IV Lasix. Meanwhile, the white cell count is 5.9, hemoglobin is 8.9 and a platelet count is 20. The patient's BUN is 15 with a creatinine of 0.7. Serum bicarb is at 28. Sodium levels at 137 and a potassium level is at 4.2. The patient remains on Impella with P4 support and 2.5 liters per minute of cardiac augmentation. The renal function remains stable with a BUN of 15 and a creatinine of 0.7. The LDH level is 511. Chest x-ray findings from today shows CHF, findings are essentially stable. He is afebrile. 07/17/2024, patient is being seen for a follow-up. The patient underwent a cardiac catheterization yesterday and the patient underwent successful stenting of the proximal and mid LAD. Following that, the Impella was discontinued and the patient was brought back to the intensive care unit. This morning, the patient remains sedated on propofol which is running at 25 mcg/kg/min and fentanyl at 0.5 mcg/kg/h. He remains on assist-control mode of mechanical ventilation. Pressure control cycled, with a pressure control of 20, rate of 16, FiO2 40% with a PEEP of 5. Blood gas showed a pH of 7.4 with a pCO2 40 and pO2 112. Chest x-ray shows cardiomegaly with bilateral pleural effusions and orotracheal tube is in good location. Fluid balance is plus a 1.5 L over the past 24 hours. Patient is on enteral feeding for nutritional support. A repeat CAT scan of the brain and C-spine was done yesterday and the CAT scan showed no acute intracranial process. Chronic appearing periventricular white matter ischemic changes were seen and there were less pronounced on the follow-up CAT scan. The white cell count of 5.5, hemoglobin is 8.7, platelet count is 97, BUN is at 16 with a creatinine of 0.7, bicarb is 23 and sodium levels at 135. LFTs are within normal limits. Afebrile. Hemodynamically stable on no pressors. Off the nitroglycerin drip for now. Cardiac rhythm is sinus bradycardia in the mid 50s. 07/18/2024, the patient was extubated and the patient was awake and alert and communicating. Earlier this morning, the patient was on oxygen at 2 L/min nasal cannula and chest x-ray was still showing CHF and bilateral pleural effusion and pulm vessel congestion. He was hemodynamically stable. He was off pressors. He had no complaints. As such, the patient was started on Entresto 24/25 1 tablet a day and the patient was kept on a combination of aspirin and Brilinta. The patient was also receiving Lasix 20 mg IV every 12 hours. The fluid balance is -2 L over the past 24 hours. On neurologic exam, the patient was unable to move his right upper extremity and there is an obvious right lower extremity weakness consistent with an acute CVA. Motor function on the left side was adequate at this point. Following our rounds, the patient became acutely short of breath and he became tachypneic and severe respiratory distress. He was placed on a BiPAP and the blood gas showed severe respiratory acidosis and a chest x-ray was consistent with acute pulmonary edema. Based on that, I had to intubate the patient and I placed him on the mechanical ventilator. Initial blood gases post mechanical ventilation showed a pH of 7.17 with a pCO2 of 66 and pO2 of 151 and based on that, increase the tidal volume to 450, increase the rate up to 28 and dropped FiO2 down to 80%. He remained hemodynamically stable. Slightly hypertensive. BUN is 19 with a creatinine of 0.7. Sodium levels at 139. WBC count 6.4 with a hemoglobin 8.7 and a platelet count of 107. Post intubation chest x-ray was consistent with pulmonary edema. ET tube noted to be pushed in by another 2 cm. He is currently on propofol which is running at 40 mcg/kg/min, calm and comfortable. On 07/19/2024, the patient is being seen for a follow-up. The patient remains intubated on the mechanical ventilator earlier this morning the patient was on propofol running at 50 mcg/kg/min. He failed extubation due to an acute pulmonary edema and the patient had to be reintubated. His current cardiac rhythm is sinus bradycardia. He also has conduction delay and widened QRS p robably a bundle branch block pattern. This was present since his admission. He was having few episodes of bradycardia and based on that the beta-blockers were placed on hold. He is still on IV Lasix 20 mg every 12 hours. Fluid balance is -2 L over the past 24 hours. He is on assist-control mode with rate of 28, tidal volume of 450, FiO2 of 60% with a PEEP of 5. Blood gas showed pH of 7.51 with a pCO2 of 33 and pO2 of 120. Chest x-ray still showing pulmonary edema. The patient was started on Entresto. He was started also on enteral feeding for nutritional support and the patient is on vital AF. Afebrile. No other significant issues overnight. Cardiology remains on the case. Remains on aspirin and Brilinta. Patient was evaluated today at 07/20/2024, remains in the ICU, intubated and mechanically ventilated, patient is on assist-control rate of 22 tidal volume 450 FiO2 40% and PEEP of 5 ABG showed a pO2 of 82 pCO2 35 pH of 7.50 FiO2 was cut down to 20. Increase flow rate to 60 L/min. Patient is on amiodarone at 0.5 mg/min IV fluid is running at 75 cc/h patient is scheduled to undergo repeat cardiac catheterization today. His last ejection fraction on echocardiogram was 15 to 20%. Patient failed weaning at 1 point as he developed pulmonary edema shortly after he was extubated. Patient also had a previous stent of the LAD on his initial admission he had an Impella device placed and has been removed patient continues to have right-sided weakness. Intermittently the patient is in atrial fibrillation continues on amiodarone. Again he scheduled to have cardiac catheterization today. Chest x-ray continues to show evidence of pulmonary edema. WBC count is 10.5 hemoglobin is 9.6 basic metabolic profile is normal and renal profile is normal. Evaluated today on 07/21/2024, remains in the ICU, intubated mechanically ventilated, patient underwent multiple stents to RCA and obtuse marginal 1 and he was found to have patent stent in LAD patient is on assist-control rate of 20 tidal volume 450 FiO2 40% and PEEP of 5 ABG showed a pO2 of 86 pCO2 38 pH of 7.46. Patient remains on amiodarone at 0.5 mg/min propofol 30 mg/kg/min norepinephrine is presently on hold, remains on Lasix 20 mg IV push twice daily, patient is scheduled to have CRISTINE and possible cardioversion today. Antibiotics grullon he received cefepime considering a chest x-ray continues show bibasilar infiltrates, I recommended that we start the patient on Zosyn. And will check procalcitonin. Discussed today his condition with cardiology again planning CRISTINE and cardioversion WBC count is 12.1 hemoglobin 9.5.Basic metabolic profile is normal renal profile is normal Patient was seen today on 07/22/2024, remains in the ICU, intubated and mechanically ventilated. Patient remains on assist-control rate of 20 tidal volume 450 FiO2 40% and PEEP of 5 ABG showed a pO2 of 85 pCO2 4 0 pH of 7.43, chest x-ray continues to show evidence of bilateral interstitial infiltrates/edema patient did receive Lasix and he remains on Lasix 20 mg IV push every 12 hours with marginal urine output. His procalcitonin was normal patient remains empirically on Zosyn. Chest x-ray was reviewed patient was on propofol at 5 mcg/kg/min, and I recommended stopping propofol, patient was given a short weaning trial for about half an hour on pressure support of 14 and CPAP, patient did not seem to do well with the pressure support, he became quite tachypneic, tachycardic, and he had lots of secretions coming out of the endotracheal tube. Hence no further weaning was attempted, patient be placed back on AC mode of mechanical ventilation, and he is not quite ready to wean. WBC count today is 9.6 hemoglobin 8.8 PTT is 52, basic metabolic profile is normal BUN is 32 creatinine 1.15 Patient was evaluated today on 07/23/2024, patient remains in the ICU, intubated and mechanically ventilated, on assist-control rate 20 tidal volume 450 FiO2 40% PEEP of 5 ABG showed a pO2 of 95 pCO2 40 pH of 7.43 chest x-ray is showing interstitial edema/infiltrates. Patient is on propofol at 25 IV fluid at KVO Lasix was given earlier 20 mg IV push was given x 1 patient remains on Zosyn empirically remains on Eliquis for his cardiac arrhythmia. Continues to have secretions but the secretions are clear. Less today compared to yesterday, hence the patient may be given a weaning trial on pressure support and CPAPWBC count is 9.6 hemoglobin 8.9 electrolytes are normal renal profile showed a BUN of 40 creatinine 1.29 slightly worse compared to yesterday's creatinine of 1.15. Objective - Vital Signs Vital signs: Vital Signs Temp 98.3 F 07/23/24 08:00 Pulse 60 07/23/24 11:31 Resp 20 07/23/24 11:00 BP 116/51 07/23/24 11:00 Pulse Ox 99 07/23/24 11:00 FiO2 40 07/23/24 11:04 Intake & Output 07/22/24 07/23/24 07/23/24 18:59 06:59 18:59 Intake Total 854.830 752.415 442.902 Output Total 640 640 455 Balance 214.830 112.415 -12.098 Weight 107.1 kg 107.1 kg Intake: IV 200 100 140 Piperacillin-Tazobactam 3 200 100 100 .375 gm In Sodium Chloride 0.9% 100 ml @ 25 mls/hr IVPB Q8H [facility] Rx#: [id number] Sodium Chloride 0.9% 1, 40 000 ml @ 20 mls/hr IV . Q24H [facility] Rx#:[id number] Intake, IV Titration 224.830 177.415 97.902 Amount Amiodarone 450 mg In 26.945 Dextrose 5% in Water 250 ml @ 0.5 MG/MIN 16.667 mls/hr IV .Q15H [facility] Rx#: [id number] Sodium Chloride 0.9% 1, 40 000 ml @ 20 mls/hr IV . Q24H [facility] Rx#:[id number] propofoL 1,000 mg In 157.885 177.415 97.902 Empty Bag 1 bag @ 15 MCG/ KG/MIN 9.324 mls/hr IV . [id number] [facility] Rx#:[id number] Tube Feeding 280 385 175 Other 150 90 30 Output: Urine 640 640 455 Other: Voiding Method Indwelling Catheter Indwelling Catheter Indwelling Catheter # Bowel Movements 1 ABP, PAP, CO, CI - Last Documented Arterial Blood Pressure 139/39 - Exam GENERAL EXAM: Revealed a 78-year-old male intubated, mechanically ventilated, on propofol 25 mcg/kg/min HEAD: Normocephalic. EYES: Normal reaction of pupils, equal size. NOSE: Clear with pink turbinates. THROAT: Dry mucous membranes, endotracheal tube is intact. NECK: No masses, no JVD. CHEST: No chest wall deformity. LUNGS: Diminished breath sounds at the bases with minimal fine crackles at the bases only CVS: Distant S1 and S2 normal with no audible murmur, regular rhythm. ABDOMEN: No hepatosplenomegaly, normal bowel sounds, no guarding or rigidity. SKIN: No rashes CENTRAL NERVOUS SYSTEM: Not assessed, fully sedated on propofol Theatric: Could not assess EXTREMITIES: No clubbing, trace of bipedal edema, no cyanosis. - Labs CBC & Chem 7: 07/23/24 05:51 07/23/24 05:40 Labs: Abnormal Lab Results - Last 24 Hours (Table) 07/22/24 07/22/24 07/23/24 Range/Units 17:30 17:45 00:24 Hgb (13.0-17.5) gm/dL Hct (39.0-53.0) % MCV (80.0-100.0) fL MCH (25.0-35.0) pg MCHC (31.0-37.0) g/dL RDW (11.5-15.5) % ABG HCO3 (21-25) mmol/L ABG Total CO2 (19-24) mmol/L ABG O2 Saturation (94-97) % Hemoglobin (13.0-17.5) gm/dL BUN (9-20) mg/dL Creatinine (0.66-1.25) mg/dL Glucose (74-99) mg/dL POC Glucose (mg/dL) 133 H 137 H 134 H (70-110) mg/dL Calcium (8.4-10.2) mg/dL 07/23/24 07/23/24 07/23/24 Range/Units 05:40 05:42 05:51 Hgb 8.9 L (13.0-17.5) gm/dL Hct 29.7 L (39.0-53.0) % MCV 68.4 L (80.0-100.0) fL MCH 20.5 L (25.0-35.0) pg MCHC 29.9 L (31.0-37.0) g/dL RDW 16.6 H (11.5-15.5) % ABG HCO3 27 H (21-25) mmol/L ABG Total CO2 28 H (19-24) mmol/L ABG O2 Saturation 98.0 H (94-97) % Hemoglobin 8.2 L (13.0-17.5) gm/dL BUN 40 H (9-20) mg/dL Creatinine 1.29 H (0.66-1.25) mg/dL Glucose 112 H (74-99) mg/dL POC Glucose (mg/dL) (70-110) mg/dL Calcium 8.0 L (8.4-10.2) mg/dL 07/23/24 07/23/24 Range/Units 06:17 11:27 Hgb (13.0-17.5) gm/dL Hct (39.0-53.0) % MCV (80.0-100.0) fL MCH (25.0-35.0) pg MCHC (31.0-37.0) g/dL RDW (11.5-15.5) % ABG HCO3 (21-25) mmol/L ABG Total CO2 (19-24) mmol/L ABG O2 Saturation (94-97) % Hemoglobin (13.0-17.5) gm/dL BUN (9-20) mg/dL Creatinine (0.66-1.25) mg/dL Glucose (74-99) mg/dL POC Glucose (mg/dL) 124 H 134 H (70-110) mg/dL Calcium (8.4-10.2) mg/dL Assessment and Plan Assessment: Impression: Status post cardiac arrest, [id number] CPR, downtime about 5 minutes. Acute hypoxic respiratory failure secondary to above. Patient has developed extensive pulmonary edema secondary to LV dysfunction secondary to ischemic cardiomyopathy. Pulmonary edema with bilateral pleural effusions, currently on IV Lasix with adequate urine output. Acute non-ST segment elevation myocardial infarction, status post cardiac catheterization indicating triple-vessel coronary artery disease, status post cardiac catheterization and stenting x 2 of the mid and proximal LAD and the patient is currently on a combination of aspirin and Brilinta and the Impella has been discontinued Cardiogenic shock, required Impella device, for a brief period of time Acute CVA with motor weakness in the right side, right upper extremity more than right lower extremity. Acute kidney injury, recovered and the patient is producing adequate amount of urine output Recent discharge in May 2024 for atypical chest pain and COVID-19 infec tion/pneumonitis Rheumatoid arthritis Hypertension Benign prostatic hyperplasia Thrombocytopenia, improving Chronic anemia Recommendation: Continue ventilatory support, may consider another trial of pressure support and CPAP today/weaning mode Continue nutritional support Continue to monitor urine output Continue Entresto Condition remains critical Continue GI and DVT prophylaxis Critical care time is over 30 minutes Time with Patient: Greater than 30
--- NOTE | 2024-07-23 15:51 | P.PN ---
Subjective Progress Note Date: 07/23/24 Hospital course: Patient is a 78-year-old male with PMH of rheumatoid arthritis, hypertension and BPH was brought to the emergency department via EMS for cardiopulmonary arrest. His initial laboratory evaluation shows WBC of 19.7, hemoglobin 14.6, MCV of 74.8, platelet count 2 8, sodium 138, potassium 4.3, chloride 117, bicarb 13, BUN 18, creatinine 1.8. His cardiac troponin has been trending upward from 0.588--->14.9. Patient was recently seen at the hospital for the complaint of chest pain. Patient was diagnosed with type II HI slightly with elevated troponins likely secondary to COVID-19 pneumonitis. Echocardiogram showed LVEF of 55% and moderate pulmonary hypertension. Viral panel negative. Chest x-ray interpreted independently shows diffuse patchy infiltrate with groundglass opacities and bilateral pleural effusion. Brain CT shows no acute intracranial process. Chest CTA is negative for pulmonary embolism and patchy opacities throughout both lungs with small bilateral pleural effusions. EKG interpreted independently shows sinus bradycardia with a regular branch block. T wave inversions in anteroseptal and lateral leads. Echocardiogram shows LVEF of 25 to 30% and ischemic cardiomyopathy with apical hypokinesis. Repeat brain CT on 07/15/2024 shows concern for suspected left parietal subacute CVA compared to previous brain CT. CAT scan of the brain was repeated again on 07/17/2024 which at this time shows no acute intracranial process. Patient was taken to [facility] on 06/16/2024 with a successful stenting to mid and proximal LAD. Impella was taken out. Patient was extubated and was able to maintain his mean arterial pressure without Impella and pressors. Patient had worsening respiratory status. Patient reintubated. Hospital course complicated with A- fib with RVR and patient started on amiodarone drip. Patient had second intervention with stents put in OM1 of left circumflex and RCA on 07/20/2024. Patient underwent CRISTINE guided cardioversion successfully. Patient currently in sinus rhythm. Ejection fraction estimated between 35 to 40% with mild to mode rate mitral regurgitation noted. Subjective: Patient seen and examined today. No acute events overnight. Patient currently sedated and intubated on mechanical ventilation with propofol running at 25 mcg/kg/h. Objective: Vital signs reviewed General: Intubated and sedated HEENT: normocephalic, atraumatic, no tracheal deviation Respiratory: Bilateral rhonchi, mechanically ventilated CVS: perfusing all extremities, no distal gangrene, trace pitting edema GI: soft, ND : no SPT, no CVAT, heard is present Neuro: Sedated Data reviewed today: Pertinent Labs: WBC 9.6, hemoglobin 8.9, MCV 68.4, platelet count 316, sodium 139, potassium 3.7, chloride 107, carbon 27, BUN 40, creatinine 1.29 glucose 112, calcium 8.0 Pertinent imaging: Chest x-ray independently interpreted, shows bilateral inters titial opacities Assessment/Plan: #Out of the hospital cardiopulmonary arrest #NSTEMI status post stents to LAD, OM1 branch of LCx and mid RCA #Cardiogenic Shock, resolved, status post Impella and pressors #Ischemic cardiomyopathy with ejection fraction of 25 to 30% #Recent history of atypical chest pain and COVID-19 pneumonitis #Acute encephalopathy, likely metabolic Pulmonology following, patient reintubated on 07/18/2024 due to increased dyspnea; recs appreciated DAPT: Aspirin 81 mg p.o. daily and Brilinta 90 mg p.o. twice daily Continue with atorvastatin 40 mg p.o. GDMT: Entresto 24-26 mg twice daily, Aldactone 25 mg p.o. daily, Lopressor switched to 25 mg p.o. 3 times daily, consider adding SGLT2 inhibitor Cardiology note reviewed, recs appreciated; beta-kaela decreased due to sinus bradycardia IV Lasix decreased to 20 mg daily, monitor electrolytes Continue with weaning trials Procalcitonin 0.22 Recommended discontinuation of Zosyn in light of negative procalcitonin and CBC Daily weights and strict I's and O's Monitor CBC and BMP #Paroxysmal A-fib with the RVR, now in sinus rhythm, status post cardioversion Continue with amiodarone 200 mg p.o. daily and Eliquis 5 mg p.o. twice daily Continue cardiac monitoring Cardiology following as above #Subacute left parietal CVA PT/OT/SPT with extensive rehabilitation once patient is extubated and hemodynamically stable Neurology following, likely had watershed infarct due to cardiac arrest Consider brain MRI once patient is stabilized #Bandemia, likely reactive to above, resolved #Normocytic anemia secondary to above #Anion gap metabolic acidosis secondary to lactic acid, resolved #Hypermagnesemia, resolved #Euthyroid sick syndrome secondary above TSH 7.63, free T4 - 0.8 Chronic conditions: BPH: Resume Flomax Hypertension: Hold nifedipine DVT prophylaxis: Eliquis 5 mg p.o. twice daily GI prophylaxis: IV Protonix 40 mg p.o. daily CODE STATUS: Full code Anticipated discharge place: Pending clinical course Patient is critically ill, needs close monitoring. Prognosis guarded. I have seen and evaluated the patient today. Discussed with the resident and agree with the residents finding and plan as documented in the resident's note. Changes highlighted in blue font. Objective - Vital Signs Vital signs: Vital Signs Temp 99.0 F 07/23/24 13:00 Pulse 59 L 07/23/24 14:00 Resp 21 07/23/24 14:00 BP 123/49 07/23/24 14:00 Pulse Ox 97 07/23/24 14:00 FiO2 40 07/23/24 13:21 Intake & Output 07/22/24 07/23/24 07/23/24 18:59 06:59 18:59 Intake Total 854.830 752.415 509.456 Output Total 640 640 680 Balance 214.830 112.415 -170.544 Weight 107.1 kg 107.1 kg Intake: IV 200 100 140 Piperacillin-Tazobactam 3 200 100 100 .375 gm In Sodium Chloride 0.9% 100 ml @ 25 mls/hr IVPB Q8H [facility] Rx#: [id number] Sodium Chloride 0.9% 1, 40 000 ml @ 20 mls/hr IV . Q24H [facility] Rx#:[id number] Intake, IV Titration 224.830 177.415 99.456 Amount Amiodarone 450 mg In 26.945 Dextrose 5% in Water 250 ml @ 0.5 MG/MIN 16.667 mls/hr IV .Q15H [facility] Rx#: [id number] Sodium Chloride 0.9% 1, 40 000 ml @ 20 mls/hr IV . Q24H [facility] Rx#:[id number] propofoL 1,000 mg In 157.885 177.415 99.456 Empty Bag 1 bag @ 15 MCG/ KG/MIN 9.324 mls/hr IV . [id number] [facility] Rx#:[id number] Tube Feeding 280 385 210 Other 150 90 60 Output: Urine 640 640 680 Other: Voiding Method Indwelling Catheter Indwelling Catheter Indwelling Catheter # Bowel Movements 1 ABP, PAP, CO, CI - Last Documented Arterial Blood Pressure 139/39 - Labs CBC & Chem 7: 07/23/24 05:51 07/23/24 05:40 Labs: Abnormal Lab Results - Last 24 Hours (Table) 07/22/24 07/22/24 07/23/24 Range/Units 17:30 17:45 00:24 Hgb (13.0-17.5) gm/dL Hct (39.0-53.0) % MCV (80.0-100.0) fL MCH (25.0-35.0) pg MCHC (31.0-37.0) g/dL RDW (11.5-15.5) % ABG HCO3 (21-25) mmol/L ABG Total CO2 (19-24) mmol/L ABG O2 Saturation (94-97) % Hemoglobin (13.0-17.5) gm/dL BUN (9-20) mg/dL Creatinine (0.66-1.25) mg/dL Glucose (74-99) mg/dL POC Glucose (mg/dL) 133 H 137 H 134 H (70-110) mg/dL Calcium (8.4-10.2) mg/dL 07/23/24 07/23/24 07/23/24 Range/Units 05:40 05:42 05:51 Hgb 8.9 L (13.0-17.5) gm/dL Hct 29.7 L (39.0-53.0) % MCV 68.4 L (80.0-100.0) fL MCH 20.5 L (25.0-35.0) pg MCHC 29.9 L (31.0-37.0) g/dL RDW 16.6 H (11.5-15.5) % ABG HCO3 27 H (21-25) mmol/L ABG Total CO2 28 H (19-24) mmol/L ABG O2 Saturation 98.0 H (94-97) % Hemoglobin 8.2 L (13.0-17.5) gm/dL BUN 40 H (9-20) mg/dL Creatinine 1.29 H (0.66-1.25) mg/dL Glucose 112 H (74-99) mg/dL POC Glucose (mg/dL) (70-110) mg/dL Calcium 8.0 L (8.4-10.2) mg/dL 07/23/24 07/23/24 Range/Units 06:17 11:27 Hgb (13.0-17.5) gm/dL Hct (39.0-53.0) % MCV (80.0-100.0) fL MCH (25.0-35.0) pg MCHC (31.0-37.0) g/dL RDW (11.5-15.5) % ABG HCO3 (21-25) mmol/L ABG Total CO2 (19-24) mmol/L ABG O2 Saturation (94-97) % Hemoglobin (13.0-17.5) gm/dL BUN (9-20) mg/dL Creatinine (0.66-1.25) mg/dL Glucose (74-99) mg/dL POC Glucose (mg/dL) 124 H 134 H (70-110) mg/dL Calcium (8.4-10.2) mg/dL
[2024-07-23 18:03] LABS: Glucose,Whole Blood 121 mg/dL (70-110)
[2024-07-23] MEDS: DEXMEDETOMIDINE/0.9% NACL(PMX) 400 MCG in EMPTY BAG 1 BAG IV SCH (20:43)
[2024-07-23 23:36] LABS: Glucose,Whole Blood 102 mg/dL (70-110)
[2024-07-24 05:07] LABS: Anisocytosis Slight; Basophils % (A) 0 %; Eosinophils # (A) 0.4 k/uL (0-0.7); Eosinophils % (A) 5 %; HCT 29.1 % (39.0-53.0); HGB 8.8 gm/dL (13.0-17.5); Hypochromasia Marked; Lymphocytes # (A) 1.3 k/uL (1.0-4.8); Lymphocytes % (A) 16 %; MCH 20.8 pg (25.0-35.0); MCHC 30.2 g/dL (31.0-37.0); MCV 68.9 fL (80.0-100.0); Mean Platelet Volume 7.2; Microcytosis Marked; Monocytes # (A) 0.5 k/uL (0-1.0); Monocytes % (A) 6 %; Neutrophils # (A) 5.7 k/uL (1.3-7.7); Neutrophils % (A) 70 %; Platelet Count 327 k/uL (150-450); RBC 4.22 m/uL (4.30-5.90); RDW 16.3 % (11.5-15.5); WBC 8.2 k/uL (3.8-10.6)
[2024-07-24 05:18] LABS: African American GFR (CKD) 78 (>60 ml/min/1.73 sqM); Anion Gap 6 mmol/L; Blood Urea Nitrogen 33 mg/dL (9-20); Calcium 8.2 mg/dL (8.4-10.2); Carbon Dioxide 29 mmol/L (22-30); Chloride 108 mmol/L (98-107); Glucose 84 mg/dL (74-99); Non-African American GFR(CKD) 68 (>60 ml/min/1.73 sqM); Potassium 3.5 mmol/L (3.5-5.1); Sodium 143 mmol/L (137-145)
[2024-07-24 06:26] LABS: Glucose,Whole Blood 99 mg/dL (70-110)
[2024-07-24] MEDS: POTASSIUM CHLORIDE 20 MEQ in WATER FOR INJECTION 1 100ML.BAG IVPB SCH (06:32)
--- NOTE | 2024-07-24 07:19 | P.PN ---
Subjective Progress Note Date: 07/24/24 PROGRESS NOTE The patient is a 78-year-old male who was admitted to the hospital on July 11 with cardiac arrest, severe cardiomyopathy and severe triple-vessel disease. He was evaluated by Dr. Abrams, underwent an Impella placement. His echocardiogram on presentation showed an ejection fraction 25 to 30% with anterior apical hypokinesis. On July 16 he underwent stenting of the LAD with removal of the Impella CP. He remains intubated, sedated. He is having episodes of paroxysmal atrial fibrillation with sinus bradycardia at times. He has good urine output. He is scheduled to undergo PCI of the RCA and the left circumflex today. He is on no vasopressors. He was found to have right-sided weakness suggestive of a cerebrovascular accident. Repeat echocardiogram on July 14 showed an e jection fraction of 40% while he was on the Impella. He was extubated but had to be reintubated because of respiratory distress. He has no evidence of ventricular ectopic activity. July 21: The patient remains intubated and sedated, in atrial fibrillation. He had episodes of recurrent rapid ventricle response. He is on beta-blockers, well- tolerated. He continues to be on IV amiodarone. He underwent stenting of the left circumflex and RCA yesterday. He is on no vasopressors. His urinary output is good. There is no evidence of ventricular tachycardia. July 22: The patient remains intubated he is more awake. He underwent CRISTINE guided cardioversion yesterday with methodist of sinus mechanism. He continues to be in sinus mechanism today, his CRISTINE showed an ejection fraction of 35 to 40% with no reported segmental wall motion abnormality. His urinary output is stable. He is on no vasopressors. He has no evidence of ventricular ectopic activity. He continues to be on IV heparin and IV amiodarone. He is following commands. July 23: The patient remains intubated, attempt to wean yesterday were unsuccessful. He continues to be in sinus mechanism with sinus bradycardia but no pauses. He is sedated at this time. His urinary output has been stable. He had no evidence of ventricular ectopic activity. He has been started on oral amiodarone and on Eliquis. July 24: The patient is extubated, alert and oriented. Complaining of dryness in his eyes. He continues to be in sinus mechanism. He has no evidence of ventricular ectopic activity or recurrent atrial fibrillation. He denies any chest discomfort or significant dyspnea. He denies any dizziness or palpitations. Medications: Amiodarone 200 mg daily, aspirin, Lipitor 40 mg daily, Lasix 20 mg IV every 24 hours, Entresto 24-26 mg daily, Flomax, Brilinta 90 mg twice a day, Eliquis 5 mg twice a day, metoprolol 25 mg 3 times daily, Aldactone 25 mg daily PHYSICAL EXAMINATION: Blood pressure 150/60 heart rate 69, extubated, alert and oriented LUNGS: Clear to auscultation HEART: Regular rate and rhythm, S1, S2. No S3. Systolic ejection murmur ABDOMEN: Soft, obese, no organomegaly EXTREMETIES: 1+ edema, mild right sided weakness LAB: Hemoglobin 8.8, platelets count 327, potassium 3.5, BUN 33, creatinine 1.06. IMPRESSION: 1. Cardiac arrest with severe cardiomyopathy and cardiogenic shock status post Impella 2. Severe triple-vessel disease, status post stenting of the LAD and stenting of the left circumflex and RCA on July 20 3. Paroxysmal atrial fibrillation alternating with sinus bradycardia, back in sinus mechanism post cardioversion 4. Evidence suggests right sided weakness related to a cerebrovascular accident 5. Respiratory failure with reintubation,, improved, extubated 6. Acute renal injury, resolved 7. History of hypertension PLAN: 1. Increase physical activity 2. Incentive spirometry 3. Add Farxiga 4. Follow blood pressure and if stable increase the dose of Entresto 5. Follow renal functions Objective - Vital Signs Vital signs: Vital Signs Temp 98.1 F 07/24/24 04:00 Pulse 69 07/24/24 07:00 Resp 27 H 07/24/24 07:00 BP 150/64 07/24/24 07:00 Pulse Ox 93 L 07/24/24 07:00 FiO2 35 07/23/24 23:03 Intake & Output 07/23/24 07/24/24 07/24/24 18:59 06:59 18:59 Intake Total 669.456 320 20 Output Total 860 610 50 Balance -190.544 -290 -30 Weight 107.1 kg 109 kg Intake: IV 300 320 20 Piperacillin-Tazobactam 3 200 100 .375 gm In Sodium Chloride 0.9% 100 ml @ 25 mls/hr IVPB Q8H [facility] Rx#: [id number] Sodium Chloride 0.9% 1, 100 220 20 000 ml @ 20 mls/hr IV . Q24H [facility] Rx#:[id number] Intake, IV Titration 99.456 Amount propofoL 1,000 mg In 99.456 Empty Bag 1 bag @ 15 MCG/ KG/MIN 9.324 mls/hr IV . [id number] [facility] Rx#:[id number] Tube Feeding 210 Other 60 Output: Urine 860 610 50 Other: Voiding Method Indwelling Catheter Indwelling Catheter # Bowel Movements 1 ABP, PAP, CO, CI - Last Documented Arterial Blood Pressure 139/39 - Labs CBC & Chem 7: 07/24/24 04:26 07/24/24 04:26 Labs: Abnormal Lab Results - Last 24 Hours (Table) 07/23/24 07/23/24 07/24/24 Range/Units 11: 18:01 04:26 RBC 4.22 L (4.30-5.90) m/uL Hgb 8.8 L (13.0-17.5) gm/dL Hct 29.1 L (39.0-53.0) % MCV 68.9 L (80.0-100.0) fL MCH 20.8 L (25.0-35.0) pg MCHC 30.2 L (31.0-37.0) g/dL RDW 16.3 H (11.5-15.5) % Chloride (98-107) mmol/L BUN (9-20) mg/dL POC Glucose (mg/dL) 134 H 121 H (70-110) mg/dL Calcium (8.4-10.2) mg/dL 07/24/24 Range/Units 04:26 RBC (4.30-5.90) m/uL Hgb (13.0-17.5) gm/dL Hct (39.0-53.0) % MCV (80.0-100.0) fL MCH (25.0-35.0) pg MCHC (31.0-37.0) g/dL RDW (11.5-15.5) % Chloride 108 H (98-107) mmol/L BUN 33 H (9-20) mg/dL POC Glucose (mg/dL) (70-110) mg/dL Calcium 8.2 L (8.4-10.2) mg/dL
--- NOTE | 2024-07-24 08:21 | P.PN ---
Subjective Progress Note Date: 07/23/24 07/23/2024: Patient was seen for follow-up. Patient has been extubated. Patient is following directions. He is slightly encephalopathic, slightly slow mentation. Offers no complaints. 07/22/2024: Patient was initially seen by Dr. Urbano Arteaga. Please refer to his note for details. Patient is a 78-year-old male with outside cardiopulmonary arrest. Has acute to subacute right sided weakness and left parietal stroke. Patient was seen for a follow-up. Patient is intubated, sedated with propofol 25 mcg/kg/min. Patient is obtunded. He is sedated as well. Please refer to examination below. Does not respond to the questions, although does move his left leg on commands. Spoke to the nurse, who mentioned that patient has been on very low-dose propofol 5 mcg/kg/min all night long. He underwent sedation holiday for about 2 hours, but he started becoming tachypneic, breathing at 42 minutes, and became restless. Therefore he was put back on sedation. Some of the work-up during this hospital visit consisted of: Ammonia is 18 Vitamin B12: 414 Folate: 12.5 TSH: 7.630, free T4 0.80 Lipid panel: TG 150, Cholestrol 130, LDL [address] of the head is reported as no acute finding. I reviewed the CT and there is a lot of artifact it is hard to appreciate any acute or subacute ischemia. I felt there is hypoattenuation on the left frontal parietal region but again it is hard to assess. Carotid duplex is reported as atherosclerotic plaque in present with may have mild to moderate internal carotid artery narrowing on the left just above 50. Unable to visualize right vertebral artery. 2D echo was reported as severe cardiomyopathy with wall motion abnormality including apical hypokinesis. Ejection fraction of 25 to 30%. Repeat CT head on 07/15/2024: reported as no acute intracranial bleed. Focal region of low-attenuation within the left parietal lobe which may represent an age indeterminate infarct. Consider further evaluation with MRI. I also personally reviewed the CT and felt the patient has subacute infarct in the left parietal region. Agree with Dr. Arteaga. MOst recent CT of the head is reported as no acute intracranial process. CT head shows hypodensity over the left frontal parietal region. I personally reviewed CT head agree with the findings. CT cervical spine is reported as no acute osseous abnormality cervical spine. Objective - Vital Signs Vital signs: Vital Signs Temp 99.0 F 07/23/24 13:00 Pulse 59 L 07/23/24 14:00 Resp 21 07/23/24 14:00 BP 123/49 07/23/24 14:00 Pulse Ox 97 07/23/24 14:00 FiO2 40 07/23/24 13:21 Intake & Output 07/22/24 07/23/24 07/23/24 18:59 06:59 18:59 Intake Total 854.830 752.415 509.456 Output Total 640 640 680 Balance 214.830 112.415 -170.544 Weight 107.1 kg 107.1 kg Intake: IV 200 100 140 Piperacillin-Tazobactam 3 200 100 100 .375 gm In Sodium Chloride 0.9% 100 ml @ 25 mls/hr IVPB Q8H [facility] Rx#: [id number] Sodium Chloride 0.9% 1, 40 000 ml @ 20 mls/hr IV . Q24H [facility] Rx#:[id number] Intake, IV Titration 224.830 177.415 99.456 Amount Amiodarone 450 mg In 26.945 Dextrose 5% in Water 250 ml @ 0.5 MG/MIN 16.667 mls/hr IV .Q15H [facility] Rx#: [id number] Sodium Chloride 0.9% 1, 40 000 ml @ 20 mls/hr IV . Q24H [facility] Rx#:[id number] propofoL 1,000 mg In 157.885 177.415 99.456 Empty Bag 1 bag @ 15 MCG/ KG/MIN 9.324 mls/hr IV . [id number] [facility] Rx#:[id number] Tube Feeding 280 385 210 Other 150 90 60 Output: Urine 640 640 680 Other: Voiding Method Indwelling Catheter Indwelling Catheter Indwelling Catheter # Bowel Movements 1 ABP, PAP, CO, CI - Last Documented Arterial Blood Pressure 139/39 - Exam Patient is now extubated, off sedation. Patient is speaking, but somewhat groggy, hoarse voice from recent extubation. Patient can name and repeat very well. Pupils are equal, round and reacting. Patient has very slight right facial asymmetry. Extraocular muscles are intact. Visual pineda appears full. Patient's muscle strength is outpatient clerk 3+/4 4+, deltoid 0/3+4-, ankle dorsiflexion 0/3+. Patient did not cooperate with full testing because he just got extubated and is tired. Will reassess tomorrow. Reflexes are diminished and plantars are upgoing bilaterally. Patient has peripheral edema. Abdomen is soft nontender. No obvious seizure-like activity. - Labs CBC & Chem 7: 07/25/24 05:24 07/25/24 05:24 Labs: Abnormal Lab Results - Last 24 Hours (Table) 07/22/24 07/22/24 07/23/24 Range/Units 17:30 17:45 00:24 Hgb (13.0-17.5) gm/dL Hct (39.0-53.0) % MCV (80.0-100.0) fL MCH (25.0-35.0) pg MCHC (31.0-37.0) g/dL RDW (11.5-15.5) % ABG HCO3 (21-25) mmol/L ABG Total CO2 (19-24) mmol/L ABG O2 Saturation (94-97) % Hemoglobin (13.0-17.5) gm/dL BUN (9-20) mg/dL Creatinine (0.66-1.25) mg/dL Glucose (74-99) mg/dL POC Glucose (mg/dL) 133 H 137 H 134 H (70-110) mg/dL Calcium (8.4-10.2) mg/dL 07/23/24 07/23/24 07/23/24 Range/Units 05:40 05:42 05:51 Hgb 8.9 L (13.0-17.5) gm/dL Hct 29.7 L (39.0-53.0) % MCV 68.4 L (80.0-100.0) fL MCH 20.5 L (25.0-35.0) pg MCHC 29.9 L (31.0-37.0) g/dL RDW 16.6 H (11.5-15.5) % ABG HCO3 27 H (21-25) mmol/L ABG Total CO2 28 H (19-24) mmol/L ABG O2 Saturation 98.0 H (94-97) % Hemoglobin 8.2 L (13.0-17.5) gm/dL BUN 40 H (9-20) mg/dL Creatinine 1.29 H (0.66-1.25) mg/dL Glucose 112 H (74-99) mg/dL POC Glucose (mg/dL) (70-110) mg/dL Calcium 8.0 L (8.4-10.2) mg/dL 07/23/24 07/23/24 Range/Units 06:17 11:27 Hgb (13.0-17.5) gm/dL Hct (39.0-53.0) % MCV (80.0-100.0) fL MCH (25.0-35.0) pg MCHC (31.0-37.0) g/dL RDW (11.5-15.5) % ABG HCO3 (21-25) mmol/L ABG Total CO2 (19-24) mmol/L ABG O2 Saturation (94-97) % Hemoglobin (13.0-17.5) gm/dL BUN (9-20) mg/dL Creatinine (0.66-1.25) mg/dL Glucose (74-99) mg/dL POC Glucose (mg/dL) 124 H 134 H (70-110) mg/dL Calcium (8.4-10.2) mg/dL Assessment and Plan Assessment: Status post out of the hospital cardiopulmonary arrest 07/11/2024, with downtime lasting for 5 minutes. Severe underlying multivessel coronary artery disease, Ischemic cardiomyopathy with ejection fraction of 15 to 20% and had Impella placed on 07/12/2024. Acute stroke involving left parietal/frontal region, noted with right hemiparesis on 07/13/2024 but it was hard to assess because he was on sedation. Patient was initially placed on heparin, but now on antiplatelets. Status post extubation 07/23/2024 Acute non-STEMI Acute kidney injury, recovered Rheumatoid arthritis Hypertension BPH Plan: Patient is on aspirin 81 mg, Brilinta 90 mg twice daily and Lipitor 40 mg nightly. Patient is off heparin drip. Patient is extubated successfully today. MRI of the brain. Neurochecks Cardiac monitoring PT OT are consulted NO need for EEG since this is not seizure and patient is following commands after sedation holiday. Cardiothoracic team is consulted for CABG evaluation Will defer the rest of the medical management to primary and other specialist For DVT prophylaxis the patient is on heparin drip Discussed with patient's nurse in detail.
--- NOTE | 2024-07-24 08:47 | XR ---
EXAMINATION TYPE: XR chest 1V DATE OF EXAM: 07/24/2024 5:18 AM COMPARISON: Chest radiograph from one day prior. CLINICAL INDICATION: Male, 78 years old with history of Assess pulmonary status; [facility] TECHNIQUE: XR chest 1V Frontal view of the chest. FINDINGS: Lungs/Pleura: No evidence of focal consolidation or pneumothorax. Blunting of the costophrenic angles is present. Pulmonary vascularity: Pulmonary vascular congestion. Heart/mediastinum: Cardiomediastinal silhouette is unremarkable. Musculoskeletal: No acute osseous pathology. There is fixation hardware in the lower cervical spine. Other findings: None Lines/Tubes: Interval removal of the endotracheal tube. Interval removal of the enteric tube, Left central venous catheter with distal tip at the cavoatrial junction. IMPRESSION: 1. Endotracheal tube has been removed. 2. Nasogastric tube has been removed 3. Suspected layering bilateral pleural effusions unchanged. 4. Mild pulmonary edema. [facility], , 07/24/2024 8:45 AM
[2024-07-24 11:29] LABS: Glucose,Whole Blood 101 mg/dL (70-110)
--- NOTE | 2024-07-24 11:42 | P.PN ---
Subjective Progress Note Date: 07/24/24 Principal diagnosis: Cardiac arrest and acute hypoxic respiratory failure This is a 78-year-old male patient with a history of rheumatoid arthritis, hypertension, BPH. He was recently here in May for atypical chest pain and COVID-19 pneumonitis. Discharged home on May 15, 2024. Since that time he had been doing well. Pain the patient was having a 2 to 3-day history of worsening shortness of breath. He was active yesterday and cleaning out his garage and did complain of shortness of breath and some chest discomfort. He developed worsening shortness of breath throughout the night. EMS was called and the arrival the patient had collapse. He was pulseless and CPR was started taking approximately 5 minutes until return of spontaneous circulation. He was brought in and being assisted with a bag valve mask device and a pulse ox of 74 and then intubated in the emergency department. He was brought up to the intensive care unit. He is currently intubated, sedated on the mechanical ventilator at a rate of 24, tidal volume 450, FiO2 90% and a PEEP of 10. Blood gases had revealed a PaO2 of 70, pCO2 of 62 and a pH of 7.14 on 100% FiO2. He is on fentanyl at 1.5 mcg/kg/h. He is currently on a heparin drip per weight- based protocol. Norepinephrine at 13.5 mcg/min. Propofol at 30 mcg/kg/min. CT scan of the brain revealed no acute findings. CT angiogram revealed no evidence of pulmonary embolism. There is small bilateral effusions. Some patchy airspace opacity/consolidation throughout both lungs. Mild groundglass opacities. White count 19.7. Hemoglobin 14.6. Platelets 208. Sodium 138. Potassium 4.3. Bicarb 13. BUN 18. Creatinine 1.13. Glucose 313. Troponin 0.588. proBNP 2770. TSH 7.36. Viral screen is negative. The patient is seen today July 12, 2024 in follow-up in the intensive care unit. He remains intubated sedated on the mechanical ventilator. Currently in assist-control mode with a rate of 30, tidal volume 450, FiO2 40% and a PEEP of 10. Morning blood gases revealed a PaO2 of 163, pCO2 of 26 and a pH of 7.49 and 50% FiO2. The PEEP will be decreased to 5. He is currently on cefazolin. Remains on bronchodilators. He is continued on a heparin drip per weight-based protocol. Norepinephrine at 0.03 mcg/kg/min. Propofol at 35 mcg/kg/min. Fentanyl drip at 1.25 mcg/kg/h. White count 9.6. Hemoglobin 11.4. Platelets 166. Sodium 136. Potassium 3.9. Bicarb 18. BUN 29. Creatinine 1.47. Glucose 114. Continue tube feedings of vital AF at a rate of 10 with a goal of 57. Will be on hold for cardiac catheterization today 07/13/2024, the patient is being seen for a follow-up. The patient remains intubated on the mechanical ventilator. He requires mechanical support for his cardiogenic shock postcardiac arrest and the patient is an Impella with a P7 support and a 3.1 L/min of augmentation. The patient remains on sedatives and the patient is currently on propofol the patient is 0.7. On the mechanical ventilator at a rate of 30, tidal volume of 450, FiO2 40% with PEEP of 5. Blood gas showed pH of 7.46 with a pCO2 of 27 and pO2 of 97. Chest x-ray shows cardiomegaly without any acute abnormalities. Orotracheal tubes are in good perfusion. The patient is currently on KVO IV fluids. The patient is on no pressors and the patient was taken off norepinephrine and is producing adequate amount of urine output in the order of 50 cc an hour. He remains on IV heparin. Creatinine is improved and the patient's creatinine peaked at 1.47 and currently is down to 1.08. He has a left subclavian triple-lumen catheter in place. Training Instructor on the case and the patient underwent a cardiac catheterization on 07/12/2024 and the patient was found to have extremely calcified right and left coronary system with evidence of triple-vessel coronary artery disease and severely elevated left ventricular end-diastolic pressure. The white cell count at 7.9 with a hemoglobin 10.8 and a platelet count of 123. Sodium levels at 135, bicarbonate 18, BUN 27 with a creatinine of 1.08. LDH lev el is at 984. The echocardiogram was completed and the patient was found to have severe impairment of the LV function with an ejection fraction of 25 to 30%. There is also severe cardiomyopathy with wall motion abnormalities involving the apical area that was quite hypokinetic. The patient remains on aspirin. The patient remains on statins and the patient is currently on Lipitor 40 mg p.o. daily. Remains on IV heparin. He is also on vital AF for enteral feeding and nutritional support. Training Instructor on the case. Cardiothoracic surgery was also involved in his care. The patient was deemed a high surgical risk for coronary intervention and bypass. On 07/14/2024, the patient is being seen for a follow-up. The patient remains sedated and the patient is currently on a combination of propofol running at 40 mcg/kg/min and fentanyl at 0.75 mcg/kg/h. The patient remains well sedated on mechanical ventilator and Impella for mechanical support for cardiogenic shock. This morning, the patient's Impella has been switched to P4 support with an augmentation of 2.5 L/min. The patient remains off pressors. Is producing adequate amount of urine output. Fluid balance is +1 L over the past 24 hours. He is hemolyzing and the hemoglobin is currently down to 9.9. Most recent LDH is at 946. At the same time, the patient remains on the mechanical ventilator. He is on assist-control mode with rate of 18, tidal volume of 450, FiO2 40% with a PEEP of 5. The blood gas from today shows a pH of 7.33 with a pCO2 of 41 and pO2 of 97. Chest x-ray is consistent with CHF/increased incisional markings consistent with heart failure. Orotracheal tube is in a good location. The patient has diffuse interstitial pattern bilaterally along with cardiomegaly and he has developed some small bilateral pleural effusions worse on the left. He remains on IV heparin. Remains on enteral feeding for additional support and the patient is currently on vital AF at rate of 35 cc an hour. IV fluids are currently at KVO. The patient's cardiac rhythm is sinus. The white cell count is 6.7 with a hemoglobin 9.9 and a platelet count of 106. The BUN is 17 with a creatinine of 0.8 and a sodium levels at 137, bicarb is at 22. 07/15/2024, the patient is being seen for a follow-up. The patient has signs of anoxic encephalopathy. The patient was given sedation holiday yesterday and he did not demonstrate adequate neurologic recovery. It was noted that he was not moving his right side effectively compared to the left. Based on that, the patient was placed back on propofol which is currently running at 40 mcg/kg/min. Attempts to wean off his Impella failed yesterday the patient became hypo tensive. The patient was given IV fluids and norepinephrine and the patient is currently off norepinephrine. He has Impella is augmenting at P4 level with 2.5 L/min augmentation. Fluid balance is +600 cc over the past 24 hours and the patient is producing urine output in the order of 30 to 40 cc an hour. No diuretics for now. Chest x-ray still showing CHF and bilateral pleural effusion right more than left. Remains on mechanical ventilator, assist-control mode with rate of 16, tidal volume of 450, FiO2 40% with a PEEP of 5. pH is 7.34 with a pCO2 of 43 and pO2 of 86. He is doing abdominal breathing and based on that, the patient was switched to pressure control mode of mechanical mario tilation. He is on vital AF at a rate of 35 cc an hour. The white cell count is 7.4, hemoglobin 9.6, his platelet count is at 116. LDH level is 625. Electrolytes are all within normal limits with a BUN of 14 and a creatinine of 0.7. Noted the patient's platelet count has dropped during this current admission and the patient remains on IV heparin. A limited echocardiogram was done yesterday and the patient was found to have impaired LV function with an estimated ejection fraction of around 40%. The patient also had segmental wall motion abnormalities. There was moderate LV dysfunction based on the echocardiogram. 07/16/2024, the patient is being seen for a follow-up. Events from yesterday was noted. Following a failed sedation holiday, the patient was noted to have some right-sided weakness. Based on that, a CAT scan of the brain was done and it showed a low-attenuation area in the left parietal lobe suspecting an evolving stroke. Another sedation holiday will be given today. Meanwhile, the patient will be kept on Impella pending cardiac catheterization and coronary inter vention as planned by cardiology. The patient is currently on a pressure control mode of mechanical ventilation, at rate of 18, pressure control of 20, FiO2 of 40% with a PEEP of 5. Blood gas showed a pH of 7.34 with pCO2 49 and pO2 of 92. Remains on IV heparin. He had some episodic hematuria but subsided. Fluid balance is -687 cc over the past 24 hours. Patient was receiving enteral feeding for nutritional support and currently it is on hold in preparation for cardiac catheterization. He was receiving vital AF at rate of 35 cc an hour. IV fluids are currently at KVO. The patient remains on IV Lasix. Meanwhile, the white cell count is 5.9, hemoglobin is 8.9 and a platelet count is 20. The patient's BUN is 15 with a creatinine of 0.7. Serum bicarb is at 28. Sodium levels at 137 and a potassium level is at 4.2. The patient remains on Impella with P4 support and 2.5 liters per minute of cardiac augmentation. The renal function remains stable with a BUN of 15 and a creatinine of 0.7. The LDH level is 511. Chest x-ray findings from today shows CHF, findings are essentially stable. He is afebrile. 07/17/2024, patient is being seen for a follow-up. The patient underwent a cardiac catheterization yesterday and the patient underwent successful stenting of the proximal and mid LAD. Following that, the Impella was discontinued and the patient was brought back to the intensive care unit. This morning, the patient remains sedated on propofol which is running at 25 mcg/kg/min and fentanyl at 0.5 mcg/kg/h. He remains on assist-control mode of mechanical ventilation. Pressure control cycled, with a pressure control of 20, rate of 16, FiO2 40% with a PEEP of 5. Blood gas showed a pH of 7.4 with a pCO2 40 and pO2 112. Chest x-ray shows cardiomegaly with bilateral pleural effusions and orotracheal tube is in good location. Fluid balance is plus a 1.5 L over the past 24 hours. Patient is on enteral feeding for nutritional support. A repeat CAT scan of the brain and C-spine was done yesterday and the CAT scan showed no acute intracranial process. Chronic appearing periventricular white matter ischemic changes were seen and there were less pronounced on the follow-up CAT scan. The white cell count of 5.5, hemoglobin is 8.7, platelet count is 97, BUN is at 16 with a creatinine of 0.7, bicarb is 23 and sodium levels at 135. LFTs are within normal limits. Afebrile. Hemodynamically stable on no pressors. Off the nitroglycerin drip for now. Cardiac rhythm is sinus bradycardia in the mid 50s. 07/18/2024, the patient was extubated and the patient was awake and alert and communicating. Earlier this morning, the patient was on oxygen at 2 L/min nasal cannula and chest x-ray was still showing CHF and bilateral pleural effusion and pulm vessel congestion. He was hemodynamically stable. He was off pressors. He had no complaints. As such, the patient was started on Entresto 24/25 1 tablet a day and the patient was kept on a combination of aspirin and Brilinta. The patient was also receiving Lasix 20 mg IV every 12 hours. The fluid balance is -2 L over the past 24 hours. On neurologic exam, the patient was unable to move his right upper extremity and there is an obvious right lower extremity weakness consistent with an acute CVA. Motor function on the left side was adequate at this point. Following our rounds, the patient became acutely short of breath and he became tachypneic and severe respiratory distress. He was placed on a BiPAP and the blood gas showed severe respiratory acidosis and a chest x-ray was consistent with acute pulmonary edema. Based on that, I had to intubate the patient and I placed him on the mechanical ventilator. Initial blood gases post mechanical ventilation showed a pH of 7.17 with a pCO2 of 66 and pO2 of 151 and based on that, increase the tidal volume to 450, increase the rate up to 28 and dropped FiO2 down to 80%. He remained hemodynamically stable. Slightly hypertensive. BUN is 19 with a creatinine of 0.7. Sodium levels at 139. WBC count 6.4 with a hemoglobin 8.7 and a platelet count of 107. Post intubation chest x-ray was consistent with pulmonary edema. ET tube noted to be pushed in by another 2 cm. He is currently on propofol which is running at 40 mcg/kg/min, calm and comfortable. On 07/19/2024, the patient is being seen for a follow-up. The patient remains intubated on the mechanical ventilator earlier this morning the patient was on propofol running at 50 mcg/kg/min. He failed extubation due to an acute pulmonary edema and the patient had to be reintubated. His current cardiac rhythm is sinus bradycardia. He also has conduction delay and widened QRS p robably a bundle branch block pattern. This was present since his admission. He was having few episodes of bradycardia and based on that the beta-blockers were placed on hold. He is still on IV Lasix 20 mg every 12 hours. Fluid balance is -2 L over the past 24 hours. He is on assist-control mode with rate of 28, tidal volume of 450, FiO2 of 60% with a PEEP of 5. Blood gas showed pH of 7.51 with a pCO2 of 33 and pO2 of 120. Chest x-ray still showing pulmonary edema. The patient was started on Entresto. He was started also on enteral feeding for nutritional support and the patient is on vital AF. Afebrile. No other significant issues overnight. Cardiology remains on the case. Remains on aspirin and Brilinta. Patient was evaluated today at 07/20/2024, remains in the ICU, intubated and mechanically ventilated, patient is on assist-control rate of 22 tidal volume 450 FiO2 40% and PEEP of 5 ABG showed a pO2 of 82 pCO2 35 pH of 7.50 FiO2 was cut down to 20. Increase flow rate to 60 L/min. Patient is on amiodarone at 0.5 mg/min IV fluid is running at 75 cc/h patient is scheduled to undergo repeat cardiac catheterization today. His last ejection fraction on echocardiogram was 15 to 20%. Patient failed weaning at 1 point as he developed pulmonary edema shortly after he was extubated. Patient also had a previous stent of the LAD on his initial admission he had an Impella device placed and has been removed patient continues to have right-sided weakness. Intermittently the patient is in atrial fibrillation continues on amiodarone. Again he scheduled to have cardiac catheterization today. Chest x-ray continues to show evidence of pulmonary edema. WBC count is 10.5 hemoglobin is 9.6 basic metabolic profile is normal and renal profile is normal. Evaluated today on 07/21/2024, remains in the ICU, intubated mechanically ventilated, patient underwent multiple stents to RCA and obtuse marginal 1 and he was found to have patent stent in LAD patient is on assist-control rate of 20 tidal volume 450 FiO2 40% and PEEP of 5 ABG showed a pO2 of 86 pCO2 38 pH of 7.46. Patient remains on amiodarone at 0.5 mg/min propofol 30 mg/kg/min norepinephrine is presently on hold, remains on Lasix 20 mg IV push twice daily, patient is scheduled to have CRISTINE and possible cardioversion today. Antibiotics grullon he received cefepime considering a chest x-ray continues show bibasilar infiltrates, I recommended that we start the patient on Zosyn. And will check procalcitonin. Discussed today his condition with cardiology again planning CRISTINE and cardioversion WBC count is 12.1 hemoglobin 9.5.Basic metabolic profile is normal renal profile is normal Patient was seen today on 07/22/2024, remains in the ICU, intubated and mechanically ventilated. Patient remains on assist-control rate of 20 tidal volume 450 FiO2 40% and PEEP of 5 ABG showed a pO2 of 85 pCO2 4 0 pH of 7.43, chest x-ray continues to show evidence of bilateral interstitial infiltrates/edema patient did receive Lasix and he remains on Lasix 20 mg IV push every 12 hours with marginal urine output. His procalcitonin was normal patient remains empirically on Zosyn. Chest x-ray was reviewed patient was on propofol at 5 mcg/kg/min, and I recommended stopping propofol, patient was given a short weaning trial for about half an hour on pressure support of 14 and CPAP, patient did not seem to do well with the pressure support, he became quite tachypneic, tachycardic, and he had lots of secretions coming out of the endotracheal tube. Hence no further weaning was attempted, patient be placed back on AC mode of mechanical ventilation, and he is not quite ready to wean. WBC count today is 9.6 hemoglobin 8.8 PTT is 52, basic metabolic profile is normal BUN is 32 creatinine 1.15 Patient was evaluated today on 07/23/2024, patient remains in the ICU, intubated and mechanically ventilated, on assist-control rate 20 tidal volume 450 FiO2 40% PEEP of 5 ABG showed a pO2 of 95 pCO2 40 pH of 7.43 chest x-ray is showing interstitial edema/infiltrates. Patient is on propofol at 25 IV fluid at KVO Lasix was given earlier 20 mg IV push was given x 1 patient remains on Zosyn empirically remains on Eliquis for his cardiac arrhythmia. Continues to have secretions but the secretions are clear. Less today compared to yesterday, hence the patient may be given a weaning trial on pressure support and CPAPWBC count is 9.6 hemoglobin 8.9 electrolytes are normal renal profile showed a BUN of 40 creatinine 1.29 slightly worse compared to yesterday's creatinine of 1.15. Patient elevated today on 07/24/2024, remains in the ICU, he is on 4 L nasal cannula, extubated yesterday, tolerated the extubation well. Patient has a relatively strong cough, remains on diuretics, remains on Zosyn, remains on Eliquis. He is on 4 L nasal cannula, does not seem to be in any distress, however is a bit slow. Patient is in sinus rhythm, hemodynamically stable, no evidence of any ectopy or recurrent atrial fibrillation. Denies any chest discomfort. Lasix was increased to 20 mg IV push every 12 hours, chest x-ray is showing slight worsening of his interstitial edema, underlying pneumonia is not entirely ruled out, patient is receiving Zosyn, procalcitonin level was normal. In addition to Lasix, patient is also on Aldactone 25 mg daily he is also on metoprolol, Brilinta, Entresto, and Lipitor as well as aspirin and amiodarone Objective - Vital Signs Vital signs: Vital Signs Temp 97.7 F 07/24/24 08:00 Pulse 74 07/24/24 11:00 Resp 33 H 07/24/24 11:00 BP 147/68 07/24/24 11:00 Pulse Ox 96 07/24/24 11:00 FiO2 35 07/23/24 23:03 Intake & Output 07/23/24 07/24/24 07/24/24 18:59 06:59 18:59 Intake Total 669.456 320 180 Output Total 860 610 215 Balance -190.544 -290 -35 Weight 107.1 kg 109 kg Intake: IV 300 320 180 Piperacillin-Tazobactam 3 200 100 100 .375 gm In Sodium Chloride 0.9% 100 ml @ 25 mls/hr IVPB Q8H [facility] Rx#: [id number] Sodium Chloride 0.9% 1, 100 220 80 000 ml @ 20 mls/hr IV . Q24H [facility] Rx#:[id number] Intake, IV Titration 99.456 Amount propofoL 1,000 mg In 99.456 Empty Bag 1 bag @ 15 MCG/ KG/MIN 9.324 mls/hr IV . [id number] [facility]I Rx#:[id number] Tube Feeding 210 Other 60 Output: Urine 860 610 215 Other: Voiding Method Indwelling Catheter Indwelling Catheter Indwelling Catheter # Bowel Movements 1 ABP, PAP, CO, CI - Last Documented Arterial Blood Pressure 139/39 - Exam GENERAL EXAM: Revealed a 78-year-old male on 4 L nasal cannula, in no distress HEAD: Normocephalic. EYES: Normal reaction of pupils, equal size. NOSE: Clear with pink turbinates. THROAT: Dry mucous membranes NECK: No masses, no JVD. CHEST: No chest wall deformity. LUNGS: Symmetrical expansion fine crackles at the bases CVS: Distant S1 and S2 normal with no audible murmur, regular rhythm. ABDOMEN: No hepatosplenomegaly, normal bowel sounds, no guarding or rigidity. SKIN: No rashes CENTRAL NERVOUS SYSTEM: Awake, follows instructions, seems to be a bit slow Psychiatric: Normal mood affect and normal mental status EXTREMITIES: No clubbing, trace of bipedal edema, no cyanosis. - Labs CBC & Chem 7: 07/24/24 04:26 07/24/24 04:26 Labs: Abnormal Lab Results - Last 24 Hours (Table) 07/23/24 07/24/24 07/24/24 Range/Units 18:01 04:26 04:26 RBC 4.22 L (4.30-5.90) m/uL Hgb 8.8 L (13.0-17.5) gm/dL Hct 29.1 L (39.0-53.0) % MCV 68.9 L (80.0-100.0) fL MCH 20.8 L (25.0-35.0) pg MCHC 30.2 L (31.0-37.0) g/dL RDW 16.3 H (11.5-15.5) % Chloride 108 H (98-107) mmol/L BUN 33 H (9-20) mg/dL POC Glucose (mg/dL) 121 H (70-110) mg/dL Calcium 8.2 L (8.4-10.2) mg/dL Assessment and Plan Assessment: Impression: Status post cardiac arrest, [id number] CPR, downtime about 5 minutes. Acute hypoxic respiratory failure secondary to above. Patient has developed extensive pulmonary edema secondary to LV dysfunction secondary to ischemic cardiomyopathy. Pulmonary edema with bilateral pleural effusions, currently on IV Lasix with ad equate urine output. Acute non-ST segment elevation myocardial infarction, status post cardiac marika terization indicating triple-vessel coronary artery disease, status post cardiac catheterization and stenting x 2 of the mid and proximal LAD and the patient is currently on a combination of aspirin and Brilinta and the Impella has been discontinued Cardiogenic shock, required Impella device, for a brief period of time Acute CVA with motor weakness in the right side, right upper extremity more than right lower extremity. Acute kidney injury, recovered and the patient is producing adequate amount of urine output Recent discharge in May 2024 for atypical chest pain and COVID-19 infection/pneumonitis Rheumatoid arthritis Hypertension Benign prostatic hyperplasia Thrombocytopenia, improving Chronic anemia Recommendation: Patient was extubated on 07/23/2024, tolerated the extubation well Continue diuretics and antibiotics Advance diet as tolerated Continue to monitor urine output, Lasix was increased to 20 mg IV push every 12 hours Continue Entresto, continue Brilinta, continue Eliquis, continue beta-blockers and amiodarone 200 mg daily. Patient is also on aspirin Will continue to monitor the patient in the ICU for the next 24 hours Continue to monitor I's and O's and daily labs. Daily x-rays of the chest Continue GI and DVT prophylaxis Time with Patient: Less than 30
[2024-07-24] MEDS: FUROSEMIDE 10 MG/ML 2 ML VIAL IV SCH (11:59)
[2024-07-24] MEDS: DAPAGLIFLOZIN PROPANEDIOL 10 MG TABLET PO SCH (12:00)
--- NOTE | 2024-07-24 12:28 | P.PN ---
Subjective Progress Note Date: 07/24/24 Hospital course: Patient is a 78-year-old male with PMH of rheumatoid arthritis, hypertension and BPH was brought to the emergency department via EMS for cardiopulmonary arrest. His initial laboratory evaluation shows WBC of 19.7, hemoglobin 14.6, MCV of 74.8, platelet count 2 8, sodium 138, potassium 4.3, chloride 117, bicarb 13, BUN 18, creatinine 1.8. His cardiac troponin has been trending upward from 0.588--->14.9. Patient was recently seen at the hospital for the complaint of chest pain. Patient was diagnosed with type II VA slightly with elevated troponins likely secondary to COVID-19 pneumonitis. Echocardiogram showed LVEF of 55% and moderate pulmonary hypertension. Viral panel negative. Chest x-ray interpreted independently shows diffuse patchy infiltrate with groundglass opacities and bilateral pleural effusion. Brain CT shows no acute intracranial process. Chest CTA is negative for pulmonary embolism and patchy opacities throughout both lungs with small bilateral pleural effusions. EKG interpreted independently shows sinus bradycardia with a regular branch block. T wave inversions in anteroseptal and lateral leads. Echocardiogram shows LVEF of 25 to 30% and ischemic cardiomyopathy with apical hypokinesis. Repeat brain CT on 07/15/2024 shows concern for suspected left parietal subacute CVA compared to previous brain CT. CAT scan of the brain was repeated again on 07/17/2024 which at this time shows no acute intracranial process. Patient was taken to the [facility] on 06/16/2024 with a successful stenting to mid and proximal LAD. Impella was taken out. Patient was extubated and was able to maintain his mean arterial pressure without Impella and pressors. Patient had worsening respiratory status. Patient reintubated. Hospital course complicated with A- fib with RVR and patient started on amiodarone drip. Patient had second intervention with stents put in OM1 of left circumflex and RCA on 07/20/2024. Patient underwent CRISTINE guided cardioversion successfully. Patient currently in sinus rhythm. Ejection fraction estimated between 35 to 40% with mild to mode rate mitral regurgitation noted. Patient was extubated. Subjective: Patient seen and examined today. No acute events overnight. Patient was extubated yesterday afternoon. Objective: Vital signs reviewed General: In no apparent distress HEENT: normocephalic, atraumatic, no tracheal deviation Respiratory: No accessory muscle use CVS: perfusing all extremities, no distal gangrene, : heard is present Neuro: Awake and follows commands Data reviewed today: Pertinent Labs: WBC 8.2, hemoglobin 8.8, platelet count 327, sodium 143, potassium 3.5, BUN 33, creatinine 1.06 Pertinent imaging: Chest x-ray independently interpreted, shows bilateral interstitial opacities worse compared to yesterday Assessment/Plan: #Out of the hospital cardiopulmonary arrest #NSTEMI status post stents to LAD, OM1 branch of LCx and mid RCA #Cardiogenic Shock, resolved, status post Impella and pressors #Ischemic cardiomyopathy with ejection fraction of 25 to 30% #Recent history of atypical chest pain and COVID-19 pneumonitis #Acute encephalopathy, likely metabolic Pulmonology following, patient reintubated on 07/18/2024 due to increased dyspnea; extubated again on 07/23 DAPT: Aspirin 81 mg p.o. daily and Brilinta 90 mg p.o. twice daily Continue with atorvastatin 40 mg p.o. GDMT: Entresto 24-26 mg twice daily, Aldactone 25 mg p.o. daily, Lopressor 25 mg p.o. 3 times daily, Farxiga 10 mg p.o. daily Cardiology note reviewed, recs appreciated; beta-kaela decreased due to sinus bradycardia IV Lasix increased to 20 mg twice daily, monitor electrolytes Procalcitonin 0.22 Recommended discontinuation of Zosyn in light of negative procalcitonin and CBC Daily weights and strict I's and O's Monitor CBC and BMP #Paroxysmal A-fib with the RVR, now in sinus rhythm, status post cardioversion #Hypertension, uncontrolled Consider resumption of patient's home nifedipine vs addition of BiDil (or e quivalent components) Continue with amiodarone 200 mg p.o. daily, metoprolol 25mg TID, and Eliquis 5 mg p.o. twice daily Continue cardiac monitoring Cardiology following as above #Subacute left parietal CVA Continue with PT/OT/SPT Neurology following, likely had watershed infarct due to cardiac arrest Brain MRI ordered, follow-up on results Advance diet as tolerated #Bandemia, likely reactive to above, resolved #Normocytic anemia secondary to above #Anion gap metabolic acidosis secondary to lactic acid, resolved #Hypermagnesemia, resolved #Euthyroid sick syndrome secondary above TSH 7.63, free T4 - 0.8 Chronic conditions: BPH: Resume Flomax DVT prophylaxis: Eliquis 5 mg p.o. twice daily GI prophylaxis: Protonix 40 mg p.o. daily CODE STATUS: Full code Anticipated discharge place: Pending clinical course I saw and evaluated the patient during the pedroza and critical portions of this encounter, and discussed the case in detail with the resident author of this note, I agree with the Assessment and Plan, and my changes, if any, are highlighted in blue. Objective - Vital Signs Vital signs: Vital Signs Temp 97.7 F 07/24/24 08:00 Pulse 74 07/24/24 11:00 Resp 33 H 07/24/24 11:00 BP 147/68 07/24/24 11:00 Pulse Ox 96 07/24/24 11:00 FiO2 35 07/23/24 23:03 Intake & Output 07/23/24 07/24/24 07/24/24 18:59 06:59 18:59 Intake Total 669.456 320 180 Output Total 860 610 215 Balance -190.544 -290 -35 Weight 107.1 kg 109 kg Intake: IV 300 320 180 Piperacillin-Tazobactam 3 200 100 100 .375 gm In Sodium Chloride 0.9% 100 ml @ 25 mls/hr IVPB Q8H HOLLI Rx#: [id number] Sodium Chloride 0.9% 1, 100 220 80 000 ml @ 20 mls/hr IV . Q24H HOLLI Rx#:[id number] Intake, IV Titration 99.456 Amount propofoL 1,000 mg In 99.456 Empty Bag 1 bag @ 15 MCG/ KG/MIN 9.324 mls/hr IV . [id number] HOLLI Rx#:[id number] Tube Feeding 210 Other 60 Output: Urine 860 610 215 Other: Voiding Method Indwelling Catheter Indwelling Catheter Indwelling Catheter # Bowel Movements 1 ABP, PAP, CO, CI - Last Documented Arterial Blood Pressure 139/39 - Labs CBC & Chem 7: 07/24/24 04:26 07/24/24 04:26 Labs: Abnormal Lab Results - Last 24 Hours (Table) 07/23/24 07/24/24 07/24/24 Range/Units 18:01 04:26 04:26 RBC 4.22 L (4.30-5.90) m/uL Hgb 8.8 L (13.0-17.5) gm/dL Hct 29.1 L (39.0-53.0) % MCV 68.9 L (80.0-100.0) fL MCH 20.8 L (25.0-35.0) pg MCHC 30.2 L (31.0-37.0) g/dL RDW 16.3 H (11.5-15.5) % Chloride 108 H (98-107) mmol/L BUN 33 H (9-20) mg/dL POC Glucose (mg/dL) 121 H (70-110) mg/dL Calcium 8.2 L (8.4-10.2) mg/dL
--- NOTE | 2024-07-24 13:07 | MR ---
EXAMINATION TYPE: MR brain wo con DATE OF EXAM: 07/24/2024 12:54 PM COMPARISON: None. CLINICAL INDICATION: Male, 78 years old with history of CVA, CVA TECHNIQUE: Multiplanar, multiecho imaging on a 3.0 Carola magnet is performed through the brain. Stud y is performed within 24 hours of arrival to the hospital.Multiplanar, multiecho imaging on a 3.0 Caryl la magnet is performed through the knee. IV Contrast: mL (None, if empty) FINDINGS: The craniovertebral junction is normal. The pituitary is normal. Diffusion-weighted imaging is performed. Hyperintensities along the left periventricular white matte r and within the left frontal lobe white matter punctate hyperintensities in the subcortical white ma tter the right centrum semiovale. Punctate white matter hyperintensities in subcortical right occipit al lobe. There is additional periventricular white matter hyperintensity on T2 and inversion recovery weighted sequences which is nonspecific but can be related to chronic white matter ischemic changes. Ventricles and sulci are prominent for the patient age. IMPRESSION: 1. Acute left periventricular basal ganglion ischemic type changes. Some additional punctate ischemic changes are within the deep white matter of the left frontal lobe right occipital lobe and the right centrum semiovale. 2. Chronic appearing Periventricular white matter hyperintensity. Differential diagnosis includes but is not limited to microvascular ischemic change, vasculitis, multiple sclerosis. [facility], , 07/24/2024 1:05 PM
[2024-07-24] MEDS ORDERED: ARTIFICIAL TEARS OINTMENT 3.5 GM TUBE BOTH EYES PRN (14:46)
[2024-07-24 18:09] LABS: Glucose,Whole Blood 97 mg/dL (70-110)
[2024-07-24] MEDS: DEXMEDETOMIDINE/0.9% NACL(PMX) 400 MCG in EMPTY BAG 1 BAG IV SCH (20:08)
[2024-07-24] MEDS: FUROSEMIDE 10 MG/ML 4 ML VIAL IV STA (22:36)
[2024-07-24 23:07] LABS: Glucose,Whole Blood 199 mg/dL (70-110)
--- NOTE | 2024-07-24 23:09 | XR ---
EXAMINATION TYPE: XR chest 1V portable DATE OF EXAM: 07/24/2024 10:42 PM COMPARISON: None. CLINICAL INDICATION: Male, 78 years old with history of SOB, TECHNIQUE: XR chest 1V portable view(s) obtained. FINDINGS: The heart size is normal. The pulmonary vasculature is normal. The lungs are clear. Diffuse groundglass opacities are present greater at the lung bases. Few air bronchograms are present . Correlate for pneumonia. Consider atypical pneumonia Left central venous catheter is present with the tip in the superior vena cava region. IMPRESSION: 1. Worsening bilateral lung infiltrates. Correlate for pneumonia, consider atypical pneumonia. Pulmon chantel edema could be considered proper setting. [facility], , 07/24/2024 11:07 PM
--- NOTE | 2024-07-24 23:18 | P.PN ---
Subjective Progress Note Date: 07/24/24 07/24/2024: Patient was seen for a follow-up. Patient is a 78-year-old left- handed male, who had developed stroke after [id number] cardiac arrest. Patient is doing much better. Patient's brother, nephew and a friend were present by the bedside. They agree patient is doing much better. 07/23/2024: Patient was seen for follow-up. Patient has been extubated. Patient is following directions. He is slightly encephalopathic, slightly slow mentation. Offers no complaints. 07/22/2024: Patient was initially seen by Dr. Urbano Arteaga. Please refer to his note for details. Patient is a 78-year-old male with outside cardiopulmonary arrest. Has acute to subacute right sided weakness and left parietal stroke. Patient was seen for a follow-up. Patient is intubated, sedated with propofol 25 mcg/kg/min. Patient is obtunded. He is sedated as well. Please refer to examination below. Does not respond to the questions, although does move his left leg on commands. Spoke to the nurse, who mentioned that patient has been on very low-dose propofol 5 mcg/kg/min all night long. He underwent sedation holiday for about 2 hours, but he started becoming tachypneic, breathing at 42 minutes, and became restless. Therefore he was put back on sedation. Some of the work-up during this hospital visit consisted of: Ammonia is 18 Vitamin B12: 414 Folate: 12.5 TSH: 7.630, free T4 0.80 Lipid panel: TG 150, Cholestrol 130, LDL [address] of the head is reported as no acute finding. I reviewed the CT and there is a lot of artifact it is hard to appreciate any acute or subacute ischemia. I felt there is hypoattenuation on the left frontal parietal region but again it is hard to assess. Carotid duplex is reported as atherosclerotic plaque in present with may have mild to moderate internal carotid artery narrowing on the left just above 50. Unable to visualize right vertebral artery. 2D echo was reported as severe cardiomyopathy with wall motion abnormality including apical hypokinesis. Ejection fraction of 25 to 30%. Repeat CT head on 07/15/2024: reported as no acute intracranial bleed. Focal region of low-attenuation within the left parietal lobe which may represent an age indeterminate infarct. Consider further evaluation with MRI. I also personally reviewed the CT and felt the patient has subacute infarct in the left parietal region. Agree with Dr. Arteaga. MOst recent CT of the head is reported as no acute intracranial process. CT head shows hypodensity over the left frontal parietal region. I personally reviewed CT head agree with the findings. CT cervical spine is reported as no acute osseous abnormality cervical spine. Objective - Vital Signs Vital signs: Vital Signs Temp 97.7 F 07/24/24 08:00 Pulse 74 07/24/24 11:00 Resp 33 H 07/24/24 11:00 BP 147/68 07/24/24 11:00 Pulse Ox 96 07/24/24 11:00 FiO2 35 07/23/24 23:03 Intake & Output 07/23/24 07/24/24 07/24/24 18:59 06:59 18:59 Intake Total 669.456 320 180 Output Total 860 610 215 Balance -190.544 -290 -35 Weight 107.1 kg 109 kg 109 kg Intake: IV 300 320 180 Piperacillin-Tazobactam 3 200 100 100 .375 gm In Sodium Chloride 0.9% 100 ml @ 25 mls/hr IVPB Q8H HOLLI Rx#: [id number] Sodium Chloride 0.9% 1, 100 220 80 000 ml @ 20 mls/hr IV . Q24H HOLLI Rx#:[id number] Intake, IV Titration 99.456 Amount propofoL 1,000 mg In 99.456 Empty Bag 1 bag @ 15 MCG/ KG/MIN 9.324 mls/hr IV . [id number] HOLLI Rx#:[id number] Tube Feeding 210 Other 60 Output: Urine 860 610 215 Other: Voiding Method Indwelling Catheter Indwelling Catheter Indwelling Catheter # Bowel Movements 1 ABP, PAP, CO, CI - Last Documented Arterial Blood Pressure 139/39 - Exam Patient is elderly male, very pleasant, in no acute distress. Patient's speech is slightly dysarthric. Patient can name and repeat very well. He knows it is July 2006 and that he is in [facility]. Pupils are equal, round and reacting. Visual pineda are full on confrontation with no neglect. Patient has very slight right flat nasolabial fold. Extraocular muscles are intact. Patient's muscle strength (right/left) biceps 0/4+5-, triceps 4/5, patrol deputy sheriff 4-/4+5-. In the lower limbs, patient's plantar flexion appears normal on the left, but slightly weaker on the right. Regarding ankle dorsiflexion, patient would not hold the ankle up consistently, just wiggles it up and down. Looks like not in control. He has at least 4+ on the left. Weaker on the right. Sensory patient did not cooperate to assess accurately. Reflexes are diminished and plantars are upgoing bilaterally. Patient has peripheral edema. Abdomen is soft nontender. No obvious seizure-like activity. - Labs CBC & Chem 7: 07/24/24 04:26 07/24/24 04:26 Labs: Abnormal Lab Results - Last 24 Hours (Table) 07/23/24 07/24/24 07/24/24 Range/Units 18:01 04:26 04:26 RBC 4.22 L (4.30-5.90) m/uL Hgb 8.8 L (13.0-17.5) gm/dL Hct 29.1 L (39.0-53.0) % MCV 68.9 L (80.0-100.0) fL MCH 20.8 L (25.0-35.0) pg MCHC 30.2 L (31.0-37.0) g/dL RDW 16.3 H (11.5-15.5) % Chloride 108 H (98-107) mmol/L BUN 33 H (9-20) mg/dL POC Glucose (mg/dL) 121 H (70-110) mg/dL Calcium 8.2 L (8.4-10.2) mg/dL Assessment and Plan Assessment: Status post out of the hospital cardiopulmonary arrest 07/11/2024, with downtime lasting for 5 minutes. Severe underlying multivessel coronary artery disease, Ischemic cardiomyopathy with ejection fraction of 15 to 20% and had Impella placed on 07/12/2024. Acute stroke involving left parietal/frontal region, noted with right hemiparesis on 07/13/2024. Paroxysmal atrial fibrillation Status post extubation 07/23/2024 Acute non-STEMI Acute kidney injury, recovered Rheumatoid arthritis Hypertension BPH Plan: Patient has developed paroxysmal atrial fibrillation. Patient started on Eliquis 5 mg twice daily. Also on Plavix 75 mg and aspirin [address] Vázquez, and patient needs to be on all 3 agents for 7 days, and after that we will stop aspirin and will be continued on Eliquis and Plavix. MRI of the brain revealed acute left periventricular basal ganglion ischemic type changes. Some additional punctate ischemic changes are within the deep white matter of the left frontal lobe, right occipital lobe and the right centrum semiovale. Chronic appearing periventricular white matter hyperintensity. Differential diagnosis includes but not limited to microvascular ischemic change, vasculitis, multiple sclerosis. I reviewed MRI, and agree with the evidence of acute ischemia as mentioned above. Neurochecks PT OT are consulted Cardiothoracic team is consulted for CABG evaluation Will defer the rest of the medical management to primary and other specialist For DVT prophylaxis the patient is on Eliquis Discussed with patient's nurse in detail. Dr. Shirley covering neurology service over the weekend, then Dr. Arteaga starts from Saturday.
[2024-07-24] MEDS: NOREPINEPHRINE 4 MG in SODIUM CHLORIDE 0.9% 250 ML IV SCH (23:33)
[2024-07-25 00:12] LABS: ABG Base Excess -2.9 mmol/L; ABG HCO3 25 mmol/L (21-25); ABG PCO2 60 mmHg (35-45); ABG PH 7.23 (7.35-7.45); ABG PO2 73 mmHg (83-108); ABG TCO2 27 mmol/L (19-24); Allen Test Performed? Yes
--- NOTE | 2024-07-25 04:00 | XR ---
EXAM: XR Chest, 1 View CLINICAL HISTORY: ITS.REASON XR Reason: OG/ ET tube placement TECHNIQUE: Frontal view of the chest. COMPARISON: X-ray chest: 07/24/2024 FINDINGS: Technically limited exam. A low-lying endotracheal tube, tip is about 1.8 cm proximal to the santino. OG tube extends into the gastric air-bubble and out of field of view. Lungs: Bilaterally mid/lower lung zones nodular consolidative infiltrates. Pleural space: Visualized left pleural effusion. Stable cardiomediastinal silhouette. No discernible acute osseous findings. IMPRESSION: Endotracheal tube tip is seen about 1.8 cm proximal to the santino. Bilaterally mid/lower lung zones alveolointerstitial opacities/pneumonia. Visualized left pleural effusion .
--- NOTE | 2024-07-25 04:32 | XR ---
EXAM: XR Chest, 1 View CLINICAL HISTORY: ITS.REASON XR Reason: post intubation TECHNIQUE: Frontal view of the chest. COMPARISON: X-ray chest: 07/23/2024 FINDINGS: Technically limited exam. Endotracheal tube terminates about 2 cm proximal to the santino. A NG tube extends below the diaphragm and out of the [id number]. Lungs: Extensive alveolointerstitial opacities are seen in both lung pineda sparing portion of the apices, much worsened since prior comparison. Possibly background emphysema. Pleural space: Visualized left pleural effusion. Heart: Stable cardiomediastinal silhouette. No obvious acute osseous findings. IMPRESSION: Endotracheal tube terminates about 2 cm proximal to the santino. Extensive bilateral alveolointerstitial opacities, indistinguishable from massive pneumonia versus ARDS. Visualized left pleural effusion. .
[2024-07-25 05:26] LABS: Allen Test Performed? Yes
[2024-07-25 05:28] LABS: ABG Base Excess 0.7 mmol/L; ABG HCO3 25 mmol/L (21-25); ABG PCO2 37 mmHg (35-45); ABG PH 7.43 (7.35-7.45); ABG PO2 273 mmHg (83-108); ABG TCO2 26 mmol/L (19-24)
[2024-07-25 05:39] LABS: Glucose,Whole Blood 111 mg/dL (70-110)
[2024-07-25 05:49] LABS: Anisocytosis Slight; Basophils # (A) 0.1 k/uL (0-0.2); Basophils % (A) 0 %; Eosinophils # (A) 0.2 k/uL (0-0.7); Eosinophils % (A) 1 %; HCT 35.2 % (39.0-53.0); Hypochromasia Marked; Lymphocytes # (A) 1.4 k/uL (1.0-4.8); Lymphocytes % (A) 8 %; MCHC 28.4 g/dL (31.0-37.0); MCV 70.4 fL (80.0-100.0); Mean Platelet Volume 7.6; Microcytosis Moderate; Monocytes # (A) 1.1 k/uL (0-1.0); Monocytes % (A) 6 %; Neutrophils # (A) 13.7 k/uL (1.3-7.7); Neutrophils % (A) 82 %; Platelet Count 501 k/uL (150-450); RDW 16.6 % (11.5-15.5); WBC 16.8 k/uL (3.8-10.6)
[2024-07-25 06:26] LABS: African American GFR (CKD) 66 (>60 ml/min/1.73 sqM); Anion Gap 9 mmol/L; Blood Urea Nitrogen 32 mg/dL (9-20); Calcium 8.5 mg/dL (8.4-10.2); Carbon Dioxide 26 mmol/L (22-30); Chloride 109 mmol/L (98-107); Glucose 111 mg/dL (74-99); Non-African American GFR(CKD) 57 (>60 ml/min/1.73 sqM); Potassium 4.3 mmol/L (3.5-5.1); Sodium 144 mmol/L (137-145)
[2024-07-25] MEDS ORDERED: PANTOPRAZOLE 40 MG TABLET PO SCH (07:30)
--- NOTE | 2024-07-25 07:57 | XR ---
EXAMINATION TYPE: XR chest 1V portable DATE OF EXAM: 07/25/2024 5:14 AM COMPARISON: 07/24/2024 CLINICAL INDICATION: Male, 78 years old with history of Tube placement, TECHNIQUE: XR chest 1V portable view(s) obtained. FINDINGS: The heart size is highly prominent. The pulmonary vasculature is normal. There is a left lower lobe infiltrate. Mild right lower lobe infiltrates Endotracheal tube tip is 0.8 cm above the santino and should be pulled back approximately 1.5 cm. Naso gastric tube transverses the thorax. Left central venous catheter tip is in the superior vena cava re gion IMPRESSION: 1. . Bibasilar infiltrates, greater on the left. Correlate for atelectasis or pneumonia. 2. Endotracheal tube tip 0.8 cm above the santino and should be pulled back 1.5 cm. [facility], , 07/25/2024 7:55 AM
[2024-07-25] MEDS: CHLORHEXIDINE GLUCONATE 15 ML CUP MUCOUS MEM SCH (08:42)
[2024-07-25] MEDS: PANTOPRAZOLE 40 MG/10 ML VIAL IVP SCH (08:42)
--- NOTE | 2024-07-25 09:58 | P.PN ---
Subjective Progress Note Date: 07/25/24 PROGRESS NOTE The patient is a 78-year-old male who was admitted to the hospital on July 11 with cardiac arrest, severe cardiomyopathy and severe triple-vessel disease. He was evaluated by Dr. Abrams, underwent an Impella placement. His echocardiogram on presentation showed an ejection fraction 25 to 30% with anterior apical hypokinesis. On July 16 he underwent stenting of the LAD with removal of the Impella CP. He remains intubated, sedated. He is having episodes of paroxysmal atrial fibrillation with sinus bradycardia at times. He has good urine output. He is scheduled to undergo PCI of the RCA and the left circumflex today. He is on no vasopressors. He was found to have right-sided weakness suggestive of a cerebrovascular accident. Repeat echocardiogram on July 14 showed an e jection fraction of 40% while he was on the Impella. He was extubated but had to be reintubated because of respiratory distress. He has no evidence of ventricular ectopic activity. July 21: The patient remains intubated and sedated, in atrial fibrillation. He had episodes of recurrent rapid ventricle response. He is on beta-blockers, well- tolerated. He continues to be on IV amiodarone. He underwent stenting of the left circumflex and RCA yesterday. He is on no vasopressors. His urinary output is good. There is no evidence of ventricular tachycardia. July 22: The patient remains intubated he is more awake. He underwent CRISTINE guided cardioversion yesterday with voodoo of sinus mechanism. He continues to be in sinus mechanism today, his CRISTINE showed an ejection fraction of 35 to 40% with no reported segmental wall motion abnormality. His urinary output is stable. He is on no vasopressors. He has no evidence of ventricular ectopic activity. He continues to be on IV heparin and IV amiodarone. He is following commands. July 23: The patient remains intubated, attempt to wean yesterday were unsuccessful. He continues to be in sinus mechanism with sinus bradycardia but no pauses. He is sedated at this time. His urinary output has been stable. He had no evidence of ventricular ectopic activity. He has been started on oral amiodarone and on Eliquis. July 24: The patient is extubated, alert and oriented. Complaining of dryness in his eyes. He continues to be in sinus mechanism. He has no evidence of ventricular ectopic activity or recurrent atrial fibrillation. He denies any chest discomfort or significant dyspnea. He denies any dizziness or palpitations. July 25: The patient had worsening respiratory status yesterday night with progressive dyspnea and hypoxemia requiring BiPAP initially and subsequently intubated because of evidence of acute pulmonary edema. He continues to be in sinus mechanism on no vasopressors. His urinary output has been stable. He is on IV Lasix. There is no evidence of recurrent atrial fibrillation or evidence of ventricular tachyarrhythmia. Medications: Amiodarone 200 mg daily, aspirin, Lipitor 40 mg daily, Lasix 40 mg IV every 8 hours, Entresto 24-26 mg daily, Flomax, Brilinta 90 mg twice a day, Eliquis 5 mg twice a day, metoprolol 25 mg 3 times daily, Aldactone 25 mg daily PHYSICAL EXAMINATION: Blood pressure 131/60 heart rate 61, intubated and sedated LUNGS: Clear to auscultation HEART: Regular rate and rhythm, S1, S2. No S3. Systolic ejection murmur ABDOMEN: Soft, obese, no organomegaly EXTREMETIES: 1+ edema, LAB: Hemoglobin 10, platelets count 501, potassium 4.3, BUN 32, creatinine 1.22. IMPRESSION: 1. Cardiac arrest with severe cardiomyopathy and cardiogenic shock status post Impella 2. Severe triple-vessel disease, status post stenting of the LAD and stenting of the left circumflex and RCA on July 20 3. Paroxysmal atrial fibrillation alternating with sinus bradycardia, back in sinus mechanism post cardioversion 4. Evidence suggests right sided weakness related to a cerebrovascular accident 5. Respiratory failure with reintubation,, patient had to be reintubated because flash pulmonary edema 6. Acute renal injury, resolved 7. History of hypertension PLAN: 1. Continue IV diuretics 2. Follow renal functions 3. Continue dual antiplatelet treatment 4. Continue anticoagulation 5. Depending on his progress further recommendations will be made, prognosis is guarded Objective - Vital Signs Vital signs: Vital Signs Temp 98.9 F 07/25/24 08:00 Pulse 61 07/25/24 08:00 Resp 22 07/25/24 08:00 BP 131/57 07/25/24 08:00 Pulse Ox 97 07/25/24 08:00 FiO2 50 07/25/24 08:00 Intake & Output 07/24/24 07/25/24 07/25/24 18:59 06:59 18:59 Intake Total 525 558.090 58.208 Output Total 815 815 145 Balance -290 -256.910 -86.792 Weight 109 kg 104.2 kg Intake: IV 425 105 20 Piperacillin-Tazobactam 3 200 100 .375 gm In Sodium Chloride 0.9% 100 ml @ 25 mls/hr IVPB Q8H [facility] Rx#: [id number] Potassium Chloride 20 meq 100 In Water For Injection 1 100ml.bag @ 50 mls/hr IVPB Q2H [facility] Rx#: [id number] Sodium Chloride 0.9% 1, 125 5 20 000 ml @ 20 mls/hr IV . Q24H [facility] Rx#:[id number] Intake, IV Titration 213.090 38.208 Amount Norepinephrine 4 mg In 67.691 38.208 Sodium Chloride 0.9% 250 ml @ 0.03 MCG/KG/MIN 12. 459 mls/hr IV .[id number] [facility] Rx#:[id number] propofoL 1,000 mg In 145.399 Empty Bag 1 bag @ 15 MCG/ KG/MIN 9.81 mls/hr IV . [id number] [facility] Rx#:[id number] Oral 100 240 Output: Urine 815 815 145 Other: Voiding Method Indwelling Catheter Indwelling Catheter ABP, PAP, CO, CI - Last Documented Arterial Blood Pressure 139/39 - Labs CBC & Chem 7: 07/25/24 05:24 07/25/24 05:24 Labs: Abnormal Lab Results - Last 24 Hours (Table) 07/24/24 07/25/24 07/25/24 Range/Units 23:05 00:05 05:24 WBC (3.8-10.6) k/uL Hgb (13.0-17.5) gm/dL Hct (39.0-53.0) % MCV (80.0-100.0) fL MCH (25.0-35.0) pg MCHC (31.0-37.0) g/dL RDW (11.5-15.5) % Plt Count (150-450) k/uL Neutrophils # (1.3-7.7) k/uL Monocytes # (0-1.0) k/uL ABG pH 7.23 L (7.35-7.45) ABG pCO2 60 H (35-45) mmHg ABG pO2 73 L (83-108) mmHg ABG Total CO2 27 H (19-24) mmol/L ABG O2 Saturation 91.0 L (94-97) % Hemoglobin 10.0 L (13.0-17.5) gm/dL Chloride 109 H (98-107) mmol/L BUN 32 H (9-20) mg/dL Glucose 111 H (74-99) mg/dL POC Glucose (mg/dL) 199 H (70-110) mg/dL 07/25/24 07/25/24 07/25/24 Range/Units 05:24 05:25 05:37 WBC 16.8 H (3.8-10.6) k/uL Hgb 10.0 L (13.0-17.5) gm/dL Hct 35.2 L (39.0-53.0) % MCV 70.4 L (80.0-100.0) fL MCH 20.0 L (25.0-35.0) pg MCHC 28.4 L (31.0-37.0) g/dL RDW 16.6 H (11.5-15.5) % Plt Count 501 H (150-450) k/uL Neutrophils # 13.7 H (1.3-7.7) k/uL Monocytes # 1.1 H (0-1.0) k/uL ABG pH (7.35-7.45) ABG pCO2 (35-45) mmHg ABG pO2 273 H (83-108) mmHg ABG Total CO2 26 H (19-24) mmol/L ABG O2 Saturation 100.0 H (94-97) % Hemoglobin (13.0-17.5) gm/dL Chloride (98-107) mmol/L BUN (9-20) mg/dL Glucose (74-99) mg/dL POC Glucose (mg/dL) 111 H (70-110) mg/dL
[2024-07-25] MEDS: FUROSEMIDE 10 MG/ML 2 ML VIAL IV ONE (10:05)
--- NOTE | 2024-07-25 11:00 | XR ---
EXAMINATION TYPE: XR chest 1V portable DATE OF EXAM: 07/25/2024 10:40 AM COMPARISON: None. CLINICAL INDICATION: Male, 78 years old with history of ETT placement, TECHNIQUE: XR chest 1V portable view(s) obtained. FINDINGS: The heart size is normal. The pulmonary vasculature is normal. There is a left lower lobe infiltrate. Small left pleural effusion is not excluded Endotracheal tube tip is 2 cm above the santino. This has been pulled back prior Nasogastric tube brady sverses the thorax. IMPRESSION: 1. Left lower lobe infiltrate and/or pleural effusion. 2. Lines and catheters discussed above [facility], , 07/25/2024 10:58 AM
--- NOTE | 2024-07-25 11:36 | OP ---
OPERATIVE REPORT DATE OF SERVICE : PROCEDURE PERFORMED: Placement of a right radial arterial line. [employer]: Janice Valdes MD ANESTHESIA USED: None deployed. DESCRIPTION OF PROCEDURE: The patient was placed in a supine position, the area of the right wrist was prepared in a sterile fashion. Drapes were applied. The right radial artery was palpated, cannulated, a guidewire was placed. A Cook's catheter was inserted over the guidewire, and the guidewire was removed. Good blood flow, good waveform, no complications. Line was secured using 3.0 silk sutures. MMODL / IJN: [id number] /
[2024-07-25 11:37] LABS: ALT 26 U/L (4-49); AST 31 U/L (17-59); African American GFR (CKD) 68 (>60 ml/min/1.73 sqM); Albumin 2.9 g/dL (3.5-5.0); Alkaline Phosphatase 67 U/L (38-126); Anion Gap 6 mmol/L; Blood Urea Nitrogen 31 mg/dL (9-20); Calcium 8.1 mg/dL (8.4-10.2); Carbon Dioxide 23 mmol/L (22-30); Chloride 113 mmol/L (98-107); Glucose 116 mg/dL (74-99); Non-African American GFR(CKD) 59 (>60 ml/min/1.73 sqM); Phosphorus 3.8 mg/dL (2.5-4.5); Sodium 142 mmol/L (137-145); Total Bilirubin 0.8 mg/dL (0.2-1.3); Total Protein 6.1 g/dL (6.3-8.2)
--- NOTE | 2024-07-25 11:55 | P.PN ---
Subjective Progress Note Date: 07/25/24 Principal diagnosis: Cardiac arrest and acute hypoxic respiratory failure This is a 78-year-old male patient with a history of rheumatoid arthritis, hypertension, BPH. He was recently here in May for atypical chest pain and COVID-19 pneumonitis. Discharged home on May 15, 2024. Since that time he had been doing well. Pain the patient was having a 2 to 3-day history of worsening shortness of breath. He was active yesterday and cleaning out his garage and did complain of shortness of breath and some chest discomfort. He developed worsening shortness of breath throughout the night. EMS was called and the arrival the patient had collapse. He was pulseless and CPR was started taking approximately 5 minutes until return of spontaneous circulation. He was brought in and being assisted with a bag valve mask device and a pulse ox of 74 and then intubated in the emergency department. He was brought up to the intensive care unit. He is currently intubated, sedated on the mechanical ventilator at a rate of 24, tidal volume 450, FiO2 90% and a PEEP of 10. Blood gases had revealed a PaO2 of 70, pCO2 of 62 and a pH of 7.14 on 100% FiO2. He is on fentanyl at 1.5 mcg/kg/h. He is currently on a heparin drip per weight- based protocol. Norepinephrine at 13.5 mcg/min. Propofol at 30 mcg/kg/min. CT scan of the brain revealed no acute findings. CT angiogram revealed no evidence of pulmonary embolism. There is small bilateral effusions. Some patchy airspace opacity/consolidation throughout both lungs. Mild groundglass opacities. White count 19.7. Hemoglobin 14.6. Platelets 208. Sodium 138. Potassium 4.3. Bicarb 13. BUN 18. Creatinine 1.13. Glucose 313. Troponin 0.588. proBNP 2770. TSH 7.36. Viral screen is negative. The patient is seen today July 12, 2024 in follow-up in the intensive care unit. He remains intubated sedated on the mechanical ventilator. Currently in assist-control mode with a rate of 30, tidal volume 450, FiO2 40% and a PEEP of 10. Morning blood gases revealed a PaO2 of 163, pCO2 of 26 and a pH of 7.49 and 50% FiO2. The PEEP will be decreased to 5. He is currently on cefazolin. Remains on bronchodilators. He is continued on a heparin drip per weight-based protocol. Norepinephrine at 0.03 mcg/kg/min. Propofol at 35 mcg/kg/min. Fentanyl drip at 1.25 mcg/kg/h. White count 9.6. Hemoglobin 11.4. Platelets 166. Sodium 136. Potassium 3.9. Bicarb 18. BUN 29. Creatinine 1.47. Glucose 114. Continue tube feedings of vital AF at a rate of 10 with a goal of 57. Will be on hold for cardiac catheterization today 07/13/2024, the patient is being seen for a follow-up. The patient remains intubated on the mechanical ventilator. He requires mechanical support for his cardiogenic shock postcardiac arrest and the patient is an Impella with a P7 support and a 3.1 L/min of augmentation. The patient remains on sedatives and the patient is currently on propofol the patient is 0.7. On the mechanical ventilator at a rate of 30, tidal volume of 450, FiO2 40% with PEEP of 5. Blood gas showed pH of 7.46 with a pCO2 of 27 and pO2 of 97. Chest x-ray shows cardiomegaly without any acute abnormalities. Orotracheal tubes are in good perfusion. The patient is currently on KVO IV fluids. The patient is on no pressors and the patient was taken off norepinephrine and is producing adequate amount of urine output in the order of 50 cc an hour. He remains on IV heparin. Creatinine is improved and the patient's creatinine peaked at 1.47 and currently is down to 1.08. He has a left subclavian triple-lumen catheter in place. Rehab Services Aide on the case and the patient underwent a cardiac catheterization on 07/12/2024 and the patient was found to have extremely calcified right and left coronary system with evidence of triple-vessel coronary artery disease and severely elevated left ventricular end-diastolic pressure. The white cell count at 7.9 with a hemoglobin 10.8 and a platelet count of 123. Sodium levels at 135, bicarbonate 18, BUN 27 with a creatinine of 1.08. LDH lev el is at 984. The echocardiogram was completed and the patient was found to have severe impairment of the LV function with an ejection fraction of 25 to 30%. There is also severe cardiomyopathy with wall motion abnormalities involving the apical area that was quite hypokinetic. The patient remains on aspirin. The patient remains on statins and the patient is currently on Lipitor 40 mg p.o. daily. Remains on IV heparin. He is also on vital AF for enteral feeding and nutritional support. Rehab Services Aide on the case. Cardiothoracic surgery was also involved in his care. The patient was deemed a high surgical risk for coronary intervention and bypass. On 07/14/2024, the patient is being seen for a follow-up. The patient remains sedated and the patient is currently on a combination of propofol running at 40 mcg/kg/min and fentanyl at 0.75 mcg/kg/h. The patient remains well sedated on mechanical ventilator and Impella for mechanical support for cardiogenic shock. This morning, the patient's Impella has been switched to P4 support with an augmentation of 2.5 L/min. The patient remains off pressors. Is producing adequate amount of urine output. Fluid balance is +1 L over the past 24 hours. He is hemolyzing and the hemoglobin is currently down to 9.9. Most recent LDH is at 946. At the same time, the patient remains on the mechanical ventilator. He is on assist-control mode with rate of 18, tidal volume of 450, FiO2 40% with a PEEP of 5. The blood gas from today shows a pH of 7.33 with a pCO2 of 41 and pO2 of 97. Chest x-ray is consistent with CHF/increased incisional markings consistent with heart failure. Orotracheal tube is in a good location. The patient has diffuse interstitial pattern bilaterally along with cardiomegaly and he has developed some small bilateral pleural effusions worse on the left. He remains on IV heparin. Remains on enteral feeding for additional support and the patient is currently on vital AF at rate of 35 cc an hour. IV fluids are currently at KVO. The patient's cardiac rhythm is sinus. The white cell count is 6.7 with a hemoglobin 9.9 and a platelet count of 106. The BUN is 17 with a creatinine of 0.8 and a sodium levels at 137, bicarb is at 22. 07/15/2024, the patient is being seen for a follow-up. The patient has signs of anoxic encephalopathy. The patient was given sedation holiday yesterday and he did not demonstrate adequate neurologic recovery. It was noted that he was not moving his right side effectively compared to the left. Based on that, the patient was placed back on propofol which is currently running at 40 mcg/kg/min. Attempts to wean off his Impella failed yesterday the patient became hypo tensive. The patient was given IV fluids and norepinephrine and the patient is currently off norepinephrine. He has Impella is augmenting at P4 level with 2.5 L/min augmentation. Fluid balance is +600 cc over the past 24 hours and the patient is producing urine output in the order of 30 to 40 cc an hour. No diuretics for now. Chest x-ray still showing CHF and bilateral pleural effusion right more than left. Remains on mechanical ventilator, assist-control mode with rate of 16, tidal volume of 450, FiO2 40% with a PEEP of 5. pH is 7.34 with a pCO2 of 43 and pO2 of 86. He is doing abdominal breathing and based on that, the patient was switched to pressure control mode of mechanical mario tilation. He is on vital AF at a rate of 35 cc an hour. The white cell count is 7.4, hemoglobin 9.6, his platelet count is at 116. LDH level is 625. Electrolytes are all within normal limits with a BUN of 14 and a creatinine of 0.7. Noted the patient's platelet count has dropped during this current admission and the patient remains on IV heparin. A limited echocardiogram was done yesterday and the patient was found to have impaired LV function with an estimated ejection fraction of around 40%. The patient also had segmental wall motion abnormalities. There was moderate LV dysfunction based on the echocardiogram. 07/16/2024, the patient is being seen for a follow-up. Events from yesterday was noted. Following a failed sedation holiday, the patient was noted to have some right-sided weakness. Based on that, a CAT scan of the brain was done and it showed a low-attenuation area in the left parietal lobe suspecting an evolving stroke. Another sedation holiday will be given today. Meanwhile, the patient will be kept on Impella pending cardiac catheterization and coronary inter vention as planned by cardiology. The patient is currently on a pressure control mode of mechanical ventilation, at rate of 18, pressure control of 20, FiO2 of 40% with a PEEP of 5. Blood gas showed a pH of 7.34 with pCO2 49 and pO2 of 92. Remains on IV heparin. He had some episodic hematuria but subsided. Fluid balance is -687 cc over the past 24 hours. Patient was receiving enteral feeding for nutritional support and currently it is on hold in preparation for cardiac catheterization. He was receiving vital AF at rate of 35 cc an hour. IV fluids are currently at KVO. The patient remains on IV Lasix. Meanwhile, the white cell count is 5.9, hemoglobin is 8.9 and a platelet count is 20. The patient's BUN is 15 with a creatinine of 0.7. Serum bicarb is at 28. Sodium levels at 137 and a potassium level is at 4.2. The patient remains on Impella with P4 support and 2.5 liters per minute of cardiac augmentation. The renal function remains stable with a BUN of 15 and a creatinine of 0.7. The LDH level is 511. Chest x-ray findings from today shows CHF, findings are essentially stable. He is afebrile. 07/17/2024, patient is being seen for a follow-up. The patient underwent a cardiac catheterization yesterday and the patient underwent successful stenting of the proximal and mid LAD. Following that, the Impella was discontinued and the patient was brought back to the intensive care unit. This morning, the patient remains sedated on propofol which is running at 25 mcg/kg/min and fentanyl at 0.5 mcg/kg/h. He remains on assist-control mode of mechanical ventilation. Pressure control cycled, with a pressure control of 20, rate of 16, FiO2 40% with a PEEP of 5. Blood gas showed a pH of 7.4 with a pCO2 40 and pO2 112. Chest x-ray shows cardiomegaly with bilateral pleural effusions and orotracheal tube is in good location. Fluid balance is plus a 1.5 L over the past 24 hours. Patient is on enteral feeding for nutritional support. A repeat CAT scan of the brain and C-spine was done yesterday and the CAT scan showed no acute intracranial process. Chronic appearing periventricular white matter ischemic changes were seen and there were less pronounced on the follow-up CAT scan. The white cell count of 5.5, hemoglobin is 8.7, platelet count is 97, BUN is at 16 with a creatinine of 0.7, bicarb is 23 and sodium levels at 135. LFTs are within normal limits. Afebrile. Hemodynamically stable on no pressors. Off the nitroglycerin drip for now. Cardiac rhythm is sinus bradycardia in the mid 50s. 07/18/2024, the patient was extubated and the patient was awake and alert and communicating. Earlier this morning, the patient was on oxygen at 2 L/min nasal cannula and chest x-ray was still showing CHF and bilateral pleural effusion and pulm vessel congestion. He was hemodynamically stable. He was off pressors. He had no complaints. As such, the patient was started on Entresto 24/25 1 tablet a day and the patient was kept on a combination of aspirin and Brilinta. The patient was also receiving Lasix 20 mg IV every 12 hours. The fluid balance is -2 L over the past 24 hours. On neurologic exam, the patient was unable to move his right upper extremity and there is an obvious right lower extremity weakness consistent with an acute CVA. Motor function on the left side was adequate at this point. Following our rounds, the patient became acutely short of breath and he became tachypneic and severe respiratory distress. He was placed on a BiPAP and the blood gas showed severe respiratory acidosis and a chest x-ray was consistent with acute pulmonary edema. Based on that, I had to intubate the patient and I placed him on the mechanical ventilator. Initial blood gases post mechanical ventilation showed a pH of 7.17 with a pCO2 of 66 and pO2 of 151 and based on that, increase the tidal volume to 450, increase the rate up to 28 and dropped FiO2 down to 80%. He remained hemodynamically stable. Slightly hypertensive. BUN is 19 with a creatinine of 0.7. Sodium levels at 139. WBC count 6.4 with a hemoglobin 8.7 and a platelet count of 107. Post intubation chest x-ray was consistent with pulmonary edema. ET tube noted to be pushed in by another 2 cm. He is currently on propofol which is running at 40 mcg/kg/min, calm and comfortable. On 07/19/2024, the patient is being seen for a follow-up. The patient remains intubated on the mechanical ventilator earlier this morning the patient was on propofol running at 50 mcg/kg/min. He failed extubation due to an acute pulmonary edema and the patient had to be reintubated. His current cardiac rhythm is sinus bradycardia. He also has conduction delay and widened QRS p robably a bundle branch block pattern. This was present since his admission. He was having few episodes of bradycardia and based on that the beta-blockers were placed on hold. He is still on IV Lasix 20 mg every 12 hours. Fluid balance is -2 L over the past 24 hours. He is on assist-control mode with rate of 28, tidal volume of 450, FiO2 of 60% with a PEEP of 5. Blood gas showed pH of 7.51 with a pCO2 of 33 and pO2 of 120. Chest x-ray still showing pulmonary edema. The patient was started on Entresto. He was started also on enteral feeding for nutritional support and the patient is on vital AF. Afebrile. No other significant issues overnight. Cardiology remains on the case. Remains on aspirin and Brilinta. Patient was evaluated today at 07/20/2024, remains in the ICU, intubated and mechanically ventilated, patient is on assist-control rate of 22 tidal volume 450 FiO2 40% and PEEP of 5 ABG showed a pO2 of 82 pCO2 35 pH of 7.50 FiO2 was cut down to 20. Increase flow rate to 60 L/min. Patient is on amiodarone at 0.5 mg/min IV fluid is running at 75 cc/h patient is scheduled to undergo repeat cardiac catheterization today. His last ejection fraction on echocardiogram was 15 to 20%. Patient failed weaning at 1 point as he developed pulmonary edema shortly after he was extubated. Patient also had a previous stent of the LAD on his initial admission he had an Impella device placed and has been removed patient continues to have right-sided weakness. Intermittently the patient is in atrial fibrillation continues on amiodarone. Again he scheduled to have cardiac catheterization today. Chest x-ray continues to show evidence of pulmonary edema. WBC count is 10.5 hemoglobin is 9.6 basic metabolic profile is normal and renal profile is normal. Evaluated today on 07/21/2024, remains in the ICU, intubated mechanically ventilated, patient underwent multiple stents to RCA and obtuse marginal 1 and he was found to have patent stent in LAD patient is on assist-control rate of 20 tidal volume 450 FiO2 40% and PEEP of 5 ABG showed a pO2 of 86 pCO2 38 pH of 7.46. Patient remains on amiodarone at 0.5 mg/min propofol 30 mg/kg/min norepinephrine is presently on hold, remains on Lasix 20 mg IV push twice daily, patient is scheduled to have CRISTINE and possible cardioversion today. Antibiotics grullon he received cefepime considering a chest x-ray continues show bibasilar infiltrates, I recommended that we start the patient on Zosyn. And will check procalcitonin. Discussed today his condition with cardiology again planning CRISTINE and cardioversion WBC count is 12.1 hemoglobin 9.5.Basic metabolic profile is normal renal profile is normal Patient was seen today on 07/22/2024, remains in the ICU, intubated and mechanically ventilated. Patient remains on assist-control rate of 20 tidal volume 450 FiO2 40% and PEEP of 5 ABG showed a pO2 of 85 pCO2 4 0 pH of 7.43, chest x-ray continues to show evidence of bilateral interstitial infiltrates/edema patient did receive Lasix and he remains on Lasix 20 mg IV push every 12 hours with marginal urine output. His procalcitonin was normal patient remains empirically on Zosyn. Chest x-ray was reviewed patient was on propofol at 5 mcg/kg/min, and I recommended stopping propofol, patient was given a short weaning trial for about half an hour on pressure support of 14 and CPAP, patient did not seem to do well with the pressure support, he became quite tachypneic, tachycardic, and he had lots of secretions coming out of the endotracheal tube. Hence no further weaning was attempted, patient be placed back on AC mode of mechanical ventilation, and he is not quite ready to wean. WBC count today is 9.6 hemoglobin 8.8 PTT is 52, basic metabolic profile is normal BUN is 32 creatinine 1.15 Patient was evaluated today on 07/23/2024, patient remains in the ICU, intubated and mechanically ventilated, on assist-control rate 20 tidal volume 450 FiO2 40% PEEP of 5 ABG showed a pO2 of 95 pCO2 40 pH of 7.43 chest x-ray is showing interstitial edema/infiltrates. Patient is on propofol at 25 IV fluid at KVO Lasix was given earlier 20 mg IV push was given x 1 patient remains on Zosyn empirically remains on Eliquis for his cardiac arrhythmia. Continues to have secretions but the secretions are clear. Less today compared to yesterday, hence the patient may be given a weaning trial on pressure support and CPAPWBC count is 9.6 hemoglobin 8.9 electrolytes are normal renal profile showed a BUN of 40 creatinine 1.29 slightly worse compared to yesterday's creatinine of 1.15. Patient elevated today on 07/24/2024, remains in the ICU, he is on 4 L nasal cannula, extubated yesterday, tolerated the extubation well. Patient has a relatively strong cough, remains on diuretics, remains on Zosyn, remains on Eliquis. He is on 4 L nasal cannula, does not seem to be in any distress, however is a bit slow. Patient is in sinus rhythm, hemodynamically stable, no evidence of any ectopy or recurrent atrial fibrillation. Denies any chest discomfort. Lasix was increased to 20 mg IV push every 12 hours, chest x-ray is showing slight worsening of his interstitial edema, underlying pneumonia is not entirely ruled out, patient is receiving Zosyn, procalcitonin level was normal. In addition to Lasix, patient is also on Aldactone 25 mg daily he is also on metoprolol, Brilinta, Entresto, and Lipitor as well as aspirin and amiodarone Patient was evaluated today on 07/25/2024, patient remains in the ICU, as matte r-of-fact last night the patient took a downhill course, he developed what seems to be a picture of pulmonary edema, patient did not do well with BiPAP, continued to desaturate, he was quite tachypneic, I was notified about this patient around 10:30 PM, patient was in respiratory distress, I recommended immediate intubation and mechanical ventilation. Patient was reintubated last night around 1044, he is now on assist-control rate of 22 tidal volume 500 FiO2 down to 45% he was on 100% earlier PEEP of 5 and flow rate is 65 L/min. Patient is prop on propofol but not on norepinephrine, blood pressure is marginal. Patient did receive Lasix 40 mg IV push every 8 hours remains on Eliquis remains on Zosyn for presumptive aspiration pneumonia. His ABG earlier today showed a pO2 of 273 pCO2 37 pH of 7.43. ABG right after intubation showed a pO2 of 73 pCO2 of 60 pH of 7.23 the patient is down to 45%, PEEP is at 5, and he is on rate of 22 with tidal volume 500. WBC count today is 16.8 hemoglobin is 10, basic metabolic profile is normal BUN is 31 creatinine 1.19Current BNP level is 5760 with normal procalcitonin level of 0.22 chest x-ray is showing improving pulmonary edema chest x-ray this morning is better than the chest x-ray he had at the time of intubation Objective - Vital Signs Vital signs: Vital Signs Temp 98.9 F 07/25/24 08:00 Pulse 61 07/25/24 08:00 Resp 22 07/25/24 08:00 BP 131/57 07/25/24 08:00 Pulse Ox 97 07/25/24 08:00 FiO2 100 07/25/24 11:04 Intake & Output 07/24/24 07/25/24 07/25/24 18:59 06:59 18:59 Intake Total 525 558.090 132.873 Output Total 815 815 145 Balance -290 -256.910 -12.127 Weight 109 kg 104.2 kg 104.2 kg Intake: IV 425 105 20 Piperacillin-Tazobactam 3 200 100 .375 gm In Sodium Chloride 0.9% 100 ml @ 25 mls/hr IVPB Q8H [facility] Rx#: [id number] Potassium Chloride 20 meq 100 In Water For Injection 1 100ml.bag @ 50 mls/hr IVPB Q2H [facility] Rx#: [id number] Sodium Chloride 0.9% 1, 125 5 20 000 ml @ 20 mls/hr IV . Q24H [facility] Rx#:[id number] Intake, IV Titration 213.090 112.873 Amount Norepinephrine 4 mg In 67.691 38.208 Sodium Chloride 0.9% 250 ml @ 0.03 MCG/KG/MIN 12. 459 mls/hr IV .[id number] [facility] Rx#:[id number] propofoL 1,000 mg In 145.399 74.665 Empty Bag 1 bag @ 15 MCG/ KG/MIN 9.81 mls/hr IV . [id number] [facility] Rx#:[id number] Oral 100 240 Output: Urine 815 815 145 Other: Voiding Method Indwelling Catheter Indwelling Catheter ABP, PAP, CO, CI - Last Documented Arterial Blood Pressure 139/39 - Exam GENERAL EXAM: Revealed a 78-year-old male on mechanical ventilation, sedated, on propofol. HEAD: Normocephalic. Atraumatic, endotracheal tube and orogastric tube are intact. EYES: Normal reaction of pupils, equal size. NOSE: Clear with pink turbinates. THROAT: Dry mucous membranes NECK: No masses, no JVD. CHEST: No chest wall deformity. Symmetrical expansion minimal crackles at the bases CVS: Distant S1 and S2 normal with no audible murmur, regular rhythm. ABDOMEN: No hepatosplenomegaly, normal bowel sounds, no guarding or rigidity. SKIN: No rashes CENTRAL NERVOUS SYSTEM: Could not assess sedated on propofol Psychiatric: Could not assess EXTREMITIES: No clubbing, trace of bipedal edema, no cyanosis. Good pulses bilaterally - Labs CBC & Chem 7: 07/25/24 05:24 07/25/24 11:11 Labs: Abnormal Lab Results - Last 24 Hours (Table) 07/24/24 07/25/24 07/25/24 Range/Units 23:05 00:05 05:24 WBC (3.8-10.6) k/uL Hgb (13.0-17.5) gm/dL Hct (39.0-53.0) % MCV (80.0-100.0) fL MCH (25.0-35.0) pg MCHC (31.0-37.0) g/dL RDW (11.5-15.5) % Plt Count (150-450) k/uL Neutrophils # (1.3-7.7) k/uL Monocytes # (0-1.0) k/uL ABG pH 7.23 L (7.35-7.45) ABG pCO2 60 H (35-45) mmHg ABG pO2 73 L (83-108) mmHg ABG Total CO2 27 H (19-24) mmol/L ABG O2 Saturation 91.0 L (94-97) % Hemoglobin 10.0 L (13.0-17.5) gm/dL Chloride 109 H (98-107) mmol/L BUN 32 H (9-20) mg/dL Glucose 111 H (74-99) mg/dL POC Glucose (mg/dL) 199 H (70-110) mg/dL Calcium (8.4-10.2) mg/dL Troponin I (0.000-0.034) ng/mL Total Protein (6.3-8.2) g/dL Albumin (3.5-5.0) g/dL 07/25/24 07/25/24 07/25/24 Range/Units 05:24 05:25 05:37 WBC 16.8 H (3.8-10.6) k/uL Hgb 10.0 L (13.0-17.5) gm/dL Hct 35.2 L (39.0-53.0) % MCV 70.4 L (80.0-100.0) fL MCH 20.0 L (25.0-35.0) pg MCHC 28.4 L (31.0-37.0) g/dL RDW 16.6 H (11.5-15.5) % Plt Count 501 H (150-450) k/uL Neutrophils # 13.7 H (1.3-7.7) k/uL Monocytes # 1.1 H (0-1.0) k/uL ABG pH (7.35-7.45) ABG pCO2 (35-45) mmHg ABG pO2 273 H (83-108) mmHg ABG Total CO2 26 H (19-24) mmol/L ABG O2 Saturation 100.0 H (94-97) % Hemoglobin (13.0-17.5) gm/dL Chloride (98-107) mmol/L BUN (9-20) mg/dL Glucose (74-99) mg/dL POC Glucose (mg/dL) 111 H (70-110) mg/dL Calcium (8.4-10.2) mg/dL Troponin I (0.000-0.034) ng/mL Total Protein (6.3-8.2) g/dL Albumin (3.5-5.0) g/dL 07/25/24 07/25/24 Range/Units 10:00 11:11 WBC (3.8-10.6) k/uL Hgb (13.0-17.5) gm/dL Hct (39.0-53.0) % MCV (80.0-100.0) fL MCH (25.0-35.0) pg MCHC (31.0-37.0) g/dL RDW (11.5-15.5) % Plt Count (150-450) k/uL Neutrophils # (1.3-7.7) k/uL Monocytes # (0-1.0) k/uL ABG pH (7.35-7.45) ABG pCO2 (35-45) mmHg ABG pO2 (83-108) mmHg ABG Total CO2 (19-24) mmol/L ABG O2 Saturation (94-97) % Hemoglobin (13.0-17.5) gm/dL Chloride 113 H (98-107) mmol/L BUN 31 H (9-20) mg/dL Glucose 116 H (74-99) mg/dL POC Glucose (mg/dL) (70-110) mg/dL Calcium 8.1 L (8.4-10.2) mg/dL Troponin I 0.244 H* (0.000-0.034) ng/mL Total Protein 6.1 L (6.3-8.2) g/dL Albumin 2.9 L (3.5-5.0) g/dL Assessment and Plan Assessment: Impression: Status post cardiac arrest, [id number] CPR, downtime about 5 minutes. Acute hypoxic respiratory failure secondary to above. Patient has developed extensive pulmonary edema secondary to LV dysfunction secondary to ischemic cardiomyopathy. Pulmonary edema with bilateral pleural effusions Acute non-ST segment elevation myocardial infarction, status post cardiac catheterization indicating triple-vessel coronary artery disease, status post cardiac catheterization and stenting x 2 of the mid and proximal LAD and the patient is currently on a combination of aspirin and Brilinta and the Impella has been discontinued Cardiogenic shock, required Impella device, for a brief period of time Acute CVA with motor weakness in the right side, right upper extremity more than right lower extremity. Acute kidney injury, recovered and the patient is producing adequate amount of urine output Recent discharge in May 2024 for atypical chest pain and COVID-19 infection/pneumonitis Rheumatoid arthritis Hypertension Benign prostatic hyperplasia Thrombocytopenia, improving Chronic anemia Reintubation on 07/16/2024 mostly because of worsening pulmonary edema Recommendation: Patient was extubated on 07/23/2024, tolerated the extubation well until late in the day 07/24/2024, patient had to be reintubated with worsening pulmonary edema Continue diuretics and antibiotics Lasix dose was increased to 40 mg IV push every 8 hours, continue to monitor renal profile Continue dual antiplatelet treatment Continue anticoagulation Continue Entresto, continue Brilinta, continue Eliquis, continue beta-blockers and amiodarone 200 mg daily. Patient is also on aspirin No plans to address any weaning today patient will be kept on mechanical ventilation, and will address weaning again tomorrow. Continue to monitor I's and O's and daily labs. Daily x-rays of the chest patient remains critically ill Critical care time is over 30, not including time spent on procedures Discussed his condition with cardiology on the case Will continue to follow Time with Patient: Greater than 30
[2024-07-25 12:24] LABS: Glucose,Whole Blood 118 mg/dL (70-110)
--- NOTE | 2024-07-25 12:36 | P.PN ---
Subjective Progress Note Date: 07/25/24 Hospital course: Patient is a 78-year-old male with PMH of rheumatoid arthritis, hypertension and BPH was brought to the emergency department via EMS for cardiopulmonary arrest. His initial laboratory evaluation shows WBC of 19.7, hemoglobin 14.6, MCV of 74.8, platelet count 2 8, sodium 138, potassium 4.3, chloride 117, bicarb 13, BUN 18, creatinine 1.8. His cardiac troponin has been trending upward from 0.588--->14.9. Patient was recently seen at the hospital for the complaint of chest pain. Patient was diagnosed with type II TX slightly with elevated troponins likely secondary to COVID-19 pneumonitis. Echocardiogram showed LVEF of 55% and moderate pulmonary hypertension. Viral panel negative. Chest x-ray interpreted independently shows diffuse patchy infiltrate with groundglass opacities and bilateral pleural effusion. Brain CT shows no acute intracranial process. Chest CTA is negative for pulmonary embolism and patchy opacities throughout both lungs with small bilateral pleural effusions. EKG interpreted independently shows sinus bradycardia with a regular branch block. T wave inversions in anteroseptal and lateral leads. Echocardiogram shows LVEF of 25 to 30% and ischemic cardiomyopathy with apical hypokinesis. Repeat brain CT on 07/15/2024 shows concern for suspected left parietal subacute CVA compared to previous brain CT. CAT scan of the brain was repeated again on 07/17/2024 which at this time shows no acute intracranial process. Patient was taken to the [facility] on 06/16/2024 with a successful stenting to mid and proximal LAD. Impella was taken out. Patient was extubated and was able to maintain his mean arterial pressure without Impella and pressors. Patient had worsening respiratory status and had to be reintubated on 07/19/2024. Hospital course complicated with A-fib with RVR and patient started on amiodarone drip. Patient had second intervention with stents put in OM1 of left circumflex and RCA on 07/20/2024. Patient underwent CRISTINE guided cardioversion successfully on 07/21/2024. Patient currently in sinus rhythm. Ejection fraction estimated be tween 35 to 40% with mild to moderate mitral regurgitation noted. Patient was extubated again on 07/23/2024 but had to be reintubated on 07/24/2024 for flash pulmonary edema. Subjective: Patient seen and examined today. Patient is currently intubated and is on assist-control mechanical ventilation. Propofol running at 50 mcg/kg/min and Levophed at 0.02 mcg/kg/min. Objective: Vital signs reviewed General: Intubated and sedated HEENT: normocephalic, atraumatic, no tracheal deviation Respiratory: Bilateral rhonchi, mechanically ventilated CVS: perfusing all extremities, no distal gangrene, trace pitting edema GI: soft, ND : no SPT, no CVAT, heard is present Neuro: Sedated Data reviewed today: Pertinent Labs: WBC 16.8, hemoglobin 10.0, platelet count 501, sodium 144, potassium 4.3, chloride 109, bicarb 26, BUN 32, creatinine 1.22, calcium 8.5, troponin 0.244, BNP 5760 Pertinent imaging: Chest x-ray independently interpreted, shows worsening bilateral interstitial opacities compared to yesterday Assessment/Plan: #Out of the hospital cardiopulmonary arrest #NSTEMI status post stents to LAD, OM1 branch of LCx and mid RCA #Cardiogenic Shock status post Impella and pressors #Ischemic cardiomyopathy with ejection fraction of 25 to 30% #Recent history of atypical chest pain and COVID-19 pneumonitis #Acute encephalopathy, likely metabolic #Bilateral pulm edema Pulmonology following, patient reintubated on 07/18/2024 due to increased dyspnea; reintubated on 07/24/2024 DAPT: Aspirin 81 mg p.o. daily and Brilinta 90 mg p.o. twice daily Continue with atorvastatin 40 mg p.o. GDMT: Entresto 24-26 mg twice daily, Aldactone 25 mg p.o. daily, Lopressor 25 mg p.o. 3 times daily, Farxiga 10 mg p.o. daily Cardiology note reviewed, recs appreciated; beta-kaela decreased due to sinus bradycardia IV Lasix increased to 40 mg every 8 hour, monitor electrolytes Daily weights and strict I's and O's Monitor CBC and BMP BNP 5670 and troponin 0.244 (likely type II TX) #Suspected hospital-acquired pneumonia in the setting of above Order procalcitonin Order blood culture Order respiratory viral panel Order sputum culture and urine Legionella antigen Continue with Zosyn 3.375 IVP every 8 hour Consider exploring fungal causes of pneumonia once ruling out viral and bacterial causes. #Paroxysmal A-fib with the RVR, now in sinus rhythm, status post cardioversion #Hypertension, uncontrolled Consider resumption of patient's home nifedipine vs addition of BiDil (or equivalent components) Continue with amiodarone 200 mg p.o. daily, metoprolol 25mg TID, and Eliquis 5 mg p.o. twice daily Continue cardiac monitoring Cardiology following as above #Subacute left parietal CVA PT/OT/SPT once patient is extubated Neurology following, likely had watershed infarct due to cardiac arrest Brain MRI ordered, follow-up on results Continue with oral tube feeds #Bandemia, likely reactive to above, resolved #Normocytic anemia secondary to above #Anion gap metabolic acidosis secondary to lactic acid, resolved #Hypermagnesemia, resolved #Euthyroid sick syndrome secondary above TSH 7.63, free T4 - 0.8 Chronic conditions: BPH: Resume Flomax DVT prophylaxis: Eliquis 5 mg p.o. twice daily GI prophylaxis: Protonix 40 mg p.o. daily CODE STATUS: Full code Anticipated discharge place: Pending clinical course I saw and evaluated the patient during the pedroza and critical portions of this encounter, and discussed the case in detail with the resident author of this note, I agree with the Assessment and Plan, and my changes, if any, are highl ighted in blue. Objective - Vital Signs Vital signs: Vital Signs Temp 98.9 F 07/25/24 08:00 Pulse 55 L 07/25/24 12:00 Resp 22 07/25/24 12:00 BP 113/53 07/25/24 09:45 Pulse Ox 99 07/25/24 12:00 FiO2 100 07/25/24 11:04 Intake & Output 07/24/24 07/25/24 07/25/24 18:59 06:59 18:59 Intake Total 525 558.090 212.873 Output Total 815 815 625 Balance -290 -256.910 -412.127 Weight 109 kg 104.2 kg 104.2 kg Intake: IV 425 105 100 Piperacillin-Tazobactam 3 200 100 .375 gm In Sodium Chloride 0.9% 100 ml @ 25 mls/hr IVPB Q8H [facility] Rx#: [id number] Potassium Chloride 20 meq 100 In Water For Injection 1 100ml.bag @ 50 mls/hr IVPB Q2H [facility] Rx#: [id number] Sodium Chloride 0.9% 1, 125 5 100 000 ml @ 20 mls/hr IV . Q24H [facility] Rx#:[id number] Intake, IV Titration 213.090 112.873 Amount Norepinephrine 4 mg In 67.691 38.208 Sodium Chloride 0.9% 250 ml @ 0.03 MCG/KG/MIN 12. 459 mls/hr IV .[id number] [facility] Rx#:[id number] propofoL 1,000 mg In 145.399 74.665 Empty Bag 1 bag @ 15 MCG/ KG/MIN 9.81 mls/hr IV . [id number] [facility] Rx#:[id number] Oral 100 240 Output: Urine 815 815 625 Other: Voiding Method Indwelling Catheter Indwelling Catheter ABP, PAP, CO, CI - Last Documented Arterial Blood Pressure 141/43 - Labs CBC & Chem 7: 07/25/24 05:24 07/25/24 11:11 Labs: Abnormal Lab Results - Last 24 Hours (Table) 07/24/24 07/25/24 07/25/24 Range/Units 23:05 00:05 05:24 WBC (3.8-10.6) k/uL Hgb (13.0-17.5) gm/dL Hct (39.0-53.0) % MCV (80.0-100.0) fL MCH (25.0-35.0) pg MCHC (31.0-37.0) g/dL RDW (11.5-15.5) % Plt Count (150-450) k/uL Neutrophils # (1.3-7.7) k/uL Monocytes # (0-1.0) k/uL ABG pH 7.23 L (7.35-7.45) ABG pCO2 60 H (35-45) mmHg ABG pO2 73 L (83-108) mmHg ABG Total CO2 27 H (19-24) mmol/L ABG O2 Saturation 91.0 L (94-97) % Hemoglobin 10.0 L (13.0-17.5) gm/dL Chloride 109 H (98-107) mmol/L BUN 32 H (9-20) mg/dL Glucose 111 H (74-99) mg/dL POC Glucose (mg/dL) 199 H (70-110) mg/dL Calcium (8.4-10.2) mg/dL Troponin I (0.000-0.034) ng/mL Total Protein (6.3-8.2) g/dL Albumin (3.5-5.0) g/dL 07/25/24 07/25/24 07/25/24 Range/Units 05:24 05:25 05:37 WBC 16.8 H (3.8-10.6) k/uL Hgb 10.0 L (13.0-17.5) gm/dL Hct 35.2 L (39.0-53.0) % MCV 70.4 L (80.0-100.0) fL MCH 20.0 L (25.0-35.0) pg MCHC 28.4 L (31.0-37.0) g/dL RDW 16.6 H (11.5-15.5) % Plt Count 501 H (150-450) k/uL Neutrophils # 13.7 H (1.3-7.7) k/uL Monocytes # 1.1 H (0-1.0) k/uL ABG pH (7.35-7.45) ABG pCO2 (35-45) mmHg ABG pO2 273 H (83-108) mmHg ABG Total CO2 26 H (19-24) mmol/L ABG O2 Saturation 100.0 H (94-97) % Hemoglobin (13.0-17.5) gm/dL Chloride (98-107) mmol/L BUN (9-20) mg/dL Glucose (74-99) mg/dL POC Glucose (mg/dL) 111 H (70-110) mg/dL Calcium (8.4-10.2) mg/dL Troponin I (0.000-0.034) ng/mL Total Protein (6.3-8.2) g/dL Albumin (3.5-5.0) g/dL 07/25/24 07/25/24 Range/Units 10:00 11:11 WBC (3.8-10.6) k/uL Hgb (13.0-17.5) gm/dL Hct (39.0-53.0) % MCV (80.0-100.0) fL MCH (25.0-35.0) pg MCHC (31.0-37.0) g/dL RDW (11.5-15.5) % Plt Count (150-450) k/uL Neutrophils # (1.3-7.7) k/uL Monocytes # (0-1.0) k/uL ABG pH (7.35-7.45) ABG pCO2 (35-45) mmHg ABG pO2 (83-108) mmHg ABG Total CO2 (19-24) mmol/L ABG O2 Saturation (94-97) % Hemoglobin (13.0-17.5) gm/dL Chloride 113 H (98-107) mmol/L BUN 31 H (9-20) mg/dL Glucose 116 H (74-99) mg/dL POC Glucose (mg/dL) (70-110) mg/dL Calcium 8.1 L (8.4-10.2) mg/dL Troponin I 0.244 H* (0.000-0.034) ng/mL Total Protein 6.1 L (6.3-8.2) g/dL Albumin 2.9 L (3.5-5.0) g/dL
[2024-07-25] MEDS: FUROSEMIDE 10 MG/ML 4 ML VIAL IV SCH (16:08)
[2024-07-25 18:13] LABS: Glucose,Whole Blood 114 mg/dL (70-110)
[2024-07-25 23:56] LABS: Glucose,Whole Blood 116 mg/dL (70-110)
[2024-07-26 03:51] LABS: Anisocytosis Slight; Basophils # (A) 0.1 k/uL (0-0.2); Basophils % (A) 1 %; Eosinophils # (A) 0.4 k/uL (0-0.7); Eosinophils % (A) 4 %; HCT 33.1 % (39.0-53.0); HGB 10.1 gm/dL (13.0-17.5); Hypochromasia Moderate; Lymphocytes % (A) 27 %; MCH 20.2 pg (25.0-35.0); MCHC 30.4 g/dL (31.0-37.0); MCV 66.4 fL (80.0-100.0); Mean Platelet Volume 8.1; Microcytosis Marked; Monocytes # (A) 0.8 k/uL (0-1.0); Monocytes % (A) 7 %; Neutrophils # (A) 6.6 k/uL (1.3-7.7); Neutrophils % (A) 59 %; Platelet Count 548 k/uL (150-450); Poikilocytosis Slight; RBC 4.98 m/uL (4.30-5.90); RDW 16.2 % (11.5-15.5); WBC 11.1 k/uL (3.8-10.6)
[2024-07-26 04:38] LABS: ALT 26 U/L (4-49); AST 31 U/L (17-59); African American GFR (CKD) 69 (>60 ml/min/1.73 sqM); Albumin 2.9 g/dL (3.5-5.0); Alkaline Phosphatase 68 U/L (38-126); Anion Gap 9 mmol/L; Blood Urea Nitrogen 28 mg/dL (9-20); Calcium 7.9 mg/dL (8.4-10.2); Carbon Dioxide 21 mmol/L (22-30); Chloride 112 mmol/L (98-107); Glucose 145 mg/dL (74-99); Non-African American GFR(CKD) 60 (>60 ml/min/1.73 sqM); Potassium 2.8 mmol/L (3.5-5.1); Sodium 142 mmol/L (137-145); Total Bilirubin 0.8 mg/dL (0.2-1.3); Total Protein 6.2 g/dL (6.3-8.2)
[2024-07-26] MEDS: POTASSIUM BICARBONATE/CIT AC 20 MEQ TABLET.EFF NG-TUBE SCH ×4 (05:02→21:06)
[2024-07-26 05:06] LABS: Glucose,Whole Blood 154 mg/dL (70-110)
[2024-07-26 05:31] LABS: ABG Base Excess 2.4 mmol/L; ABG HCO3 25 mmol/L (21-25); ABG Oxygen Saturation 99.2 % (94-97); ABG PCO2 29 mmHg (35-45); ABG PH 7.54 (7.35-7.45); ABG PO2 121 mmHg (83-108); ABG TCO2 25 mmol/L (19-24); Allen Test Performed? Yes
[2024-07-26] MEDS: HYDROmorphone 1 MG/ML 1 ML SYRINGE IVP PRN (06:03)
--- NOTE | 2024-07-26 07:54 | XR ---
EXAMINATION TYPE: XR chest 1V portable DATE OF EXAM: 07/26/2024 6:32 AM COMPARISON: 07/25/2024 CLINICAL INDICATION: Male, 78 years old with history of Tube placement, TECHNIQUE: XR chest 1V portable view(s) obtained. FINDINGS: The heart size is normal. The pulmonary vasculature is normal. Mild patchy infiltrate is present, improving at the left base. Endotracheal tube tip is 3.7 cm above the santino. Nasogastric tube transverses the thorax. Left centr al venous catheter tip is in the superior vena cava region. IMPRESSION: 1. Improving left lower lobe infiltrate. Mild stable changes at the right base 2 lines and catheters discussed above [facility], , 07/26/2024 7:52 AM
[2024-07-26] MEDS: METOPROLOL TARTRATE 25 MG TAB PO SCH (09:05)
--- NOTE | 2024-07-26 09:12 | P.PN ---
Subjective Progress Note Date: 07/26/24 PROGRESS NOTE The patient is a 78-year-old male who was admitted to the hospital on July 11 with cardiac arrest, severe cardiomyopathy and severe triple-vessel disease. He was evaluated by Dr. Abrams, underwent an Impella placement. His echocardiogram on presentation showed an ejection fraction 25 to 30% with anterior apical hypokinesis. On July 16 he underwent stenting of the LAD with removal of the Impella CP. He remains intubated, sedated. He is having episodes of paroxysmal atrial fibrillation with sinus bradycardia at times. He has good urine output. He is scheduled to undergo PCI of the RCA and the left circumflex today. He is on no vasopressors. He was found to have right-sided weakness suggestive of a cerebrovascular accident. Repeat echocardiogram on July 14 showed an e jection fraction of 40% while he was on the Impella. He was extubated but had to be reintubated because of respiratory distress. He has no evidence of ventricular ectopic activity. July 21: The patient remains intubated and sedated, in atrial fibrillation. He had episodes of recurrent rapid ventricle response. He is on beta-blockers, well- tolerated. He continues to be on IV amiodarone. He underwent stenting of the left circumflex and RCA yesterday. He is on no vasopressors. His urinary output is good. There is no evidence of ventricular tachycardia. July 22: The patient remains intubated he is more awake. He underwent CRISTINE guided cardioversion yesterday with baptism of sinus mechanism. He continues to be in sinus mechanism today, his CRISTINE showed an ejection fraction of 35 to 40% with no reported segmental wall motion abnormality. His urinary output is stable. He is on no vasopressors. He has no evidence of ventricular ectopic activity. He continues to be on IV heparin and IV amiodarone. He is following commands. July 23: The patient remains intubated, attempt to wean yesterday were unsuccessful. He continues to be in sinus mechanism with sinus bradycardia but no pauses. He is sedated at this time. His urinary output has been stable. He had no evidence of ventricular ectopic activity. He has been started on oral amiodarone and on Eliquis. July 24: The patient is extubated, alert and oriented. Complaining of dryness in his eyes. He continues to be in sinus mechanism. He has no evidence of ventricular ectopic activity or recurrent atrial fibrillation. He denies any chest discomfort or significant dyspnea. He denies any dizziness or palpitations. July 25: The patient had worsening respiratory status yesterday night with progressive dyspnea and hypoxemia requiring BiPAP initially and subsequently intubated because of evidence of acute pulmonary edema. He continues to be in sinus mechanism on no vasopressors. His urinary output has been stable. He is on IV Lasix. There is no evidence of recurrent atrial fibrillation or evidence of ventricular tachyarrhythmia. July 26: The patient remains intubated, he is back in sinus mechanism. His urinary output is stable. He is on a low-dose of norepinephrine. He has no ventricular ectopic activity. He had sinus bradycardia earlier yesterday prior to converting to atrial fibrillation, he is in sinus bradycardia at this time. Medications: Amiodarone 200 mg daily, aspirin, Lipitor 40 mg daily, Lasix 40 mg IV every 8 hours, Entresto 24-26 mg daily, Flomax, Brilinta 90 mg twice a day, Eliquis 5 mg twice a day, metoprolol 25 mg 3 times daily, Aldactone 25 mg daily, Farxiga 10 mg daily PHYSICAL EXAMINATION: Blood pressure 140/40 heart rate 58, intubated and sedated LUNGS: Clear to auscultation HEART: Regular rate and rhythm, S1, S2. No S3. Systolic ejection murmur ABDOMEN: Soft, obese, no organomegaly EXTREMETIES: Trace to 1+ edema, LAB: Hemoglobin 10.1, platelets count 548, potassium 4.3, BUN 28, creatinine 1.17. IMPRESSION: 1. Cardiac arrest with severe cardiomyopathy and cardiogenic shock status post Impella 2. Severe triple-vessel disease, status post stenting of the LAD and stenting of the left circumflex and RCA on July 20 3. Paroxysmal atrial fibrillation alternating with sinus bradycardia, back in sinus bradycardia at this time, post cardioversion 4. Evidence suggests right sided weakness related to a cerebrovascular accident 5. Respiratory failure with reintubation,, patient had to be reintubated because flash pulmonary edema 6. Acute renal injury, resolved 7. History of hypertension PLAN: 1. Continue IV diuretics 2. Decrease beta-kaela and hold for heart rate less than 60 3. Attempt to wean and extubate 4. I discussed his case with his sister, explained to her the procedures that were done and the evidence of cardiomyopathy. Objective - Vital Signs Vital signs: Vital Signs Temp 98.7 F 11/17/24 08:00 Pulse 61 07/26/24 08:00 Resp 22 07/26/24 08:00 BP 113/53 07/25/24 09:45 Pulse Ox 98 07/26/24 08:00 FiO2 50 07/26/24 08:00 Intake & Output 07/25/24 07/26/24 07/26/24 18:59 06:59 18:59 Intake Total 962.015 7842.614 140 Output Total 1490 1500 75 Balance -503.814 -109.386 65 Weight 104.2 kg 106 kg Intake: IV 340 220 40 0.9 KVO @ 20 220 40 Piperacillin-Tazobactam 3 100 .375 gm In Sodium Chloride 0.9% 100 ml @ 25 mls/hr IVPB Q8H [facility] Rx#: [id number] Sodium Chloride 0.9% 1, 240 000 ml @ 20 mls/hr IV . Q24H [facility] Rx#:[id number] Intake, IV Titration 516.186 770.614 Amount Norepinephrine 4 mg In 251.596 391.044 Sodium Chloride 0.9% 250 ml @ 0.03 MCG/KG/MIN 12. 459 mls/hr IV .[id number] [facility] Rx#:[id number] propofoL 1,000 mg In 264.590 379.57 Empty Bag 1 bag @ 15 MCG/ KG/MIN 9.81 mls/hr IV . [id number] [facility] Rx#:[id number] Tube Feeding 100 220 40 Other 30 180 60 Output: Urine 1490 1500 75 Other: Voiding Method Indwelling Catheter Indwelling Catheter Indwelling Catheter ABP, PAP, CO, CI - Last Documented Arterial Blood Pressure 140/46 - Labs CBC & Chem 7: 07/26/24 03:42 07/26/24 03:12 Labs: Abnormal Lab Results - Last 24 Hours (Table) 07/25/24 07/25/24 07/25/24 Range/Units 10:00 11:11 12:23 WBC (3.8-10.6) k/uL Hgb (13.0-17.5) gm/dL Hct (39.0-53.0) % MCV (80.0-100.0) fL MCH (25.0-35.0) pg MCHC (31.0-37.0) g/dL RDW (11.5-15.5) % Plt Count (150-450) k/uL ABG pH (7.35-7.45) ABG pCO2 (35-45) mmHg ABG pO2 (83-108) mmHg ABG Total CO2 (19-24) mmol/L ABG O2 Saturation (94-97) % Hemoglobin (13.0-17.5) gm/dL Potassium (3.5-5.1) mmol/L Chloride 113 H (98-107) mmol/L Carbon Dioxide (22-30) mmol/L BUN 31 H (9-20) mg/dL Glucose 116 H (74-99) mg/dL POC Glucose (mg/dL) 118 H (70-110) mg/dL Calcium 8.1 L (8.4-10.2) mg/dL Troponin I 0.244 H* (0.000-0.034) ng/mL Total Protein 6.1 L (6.3-8.2) g/dL Albumin 2.9 L (3.5-5.0) g/dL 07/25/24 07/25/24 07/26/24 Range/Units 18:11 23:55 03:12 WBC (3.8-10.6) k/uL Hgb (13.0-17.5) gm/dL Hct (39.0-53.0) % MCV (80.0-100.0) fL MCH (25.0-35.0) pg MCHC (31.0-37.0) g/dL RDW (11.5-15.5) % Plt Count (150-450) k/uL ABG pH (7.35-7.45) ABG pCO2 (35-45) mmHg ABG pO2 (83-108) mmHg ABG Total CO2 (19-24) mmol/L ABG O2 Saturation (94-97) % Hemoglobin (13.0-17.5) gm/dL Potassium 2.8 L (3.5-5.1) mmol/L Chloride 112 H (98-107) mmol/L Carbon Dioxide 21 L (22-30) mmol/L BUN 28 H (9-20) mg/dL Glucose 145 H (74-99) mg/dL POC Glucose (mg/dL) 114 H 116 H (70-110) mg/dL Calcium 7.9 L (8.4-10.2) mg/dL Troponin I (0.000-0.034) ng/mL Total Protein 6.2 L (6.3-8.2) g/dL Albumin 2.9 L (3.5-5.0) g/dL 07/26/24 07/26/24 07/26/24 Range/Units 03:42 05:05 05:25 WBC 11.1 H (3.8-10.6) k/uL Hgb 10.1 L (13.0-17.5) gm/dL Hct 33.1 L (39.0-53.0) % MCV 66.4 L (80.0-100.0) fL MCH 20.2 L (25.0-35.0) pg MCHC 30.4 L (31.0-37.0) g/dL RDW 16.2 H (11.5-15.5) % Plt Count 548 H (150-450) k/uL ABG pH 7.54 H (7.35-7.45) ABG pCO2 29 L (35-45) mmHg ABG pO2 121 H (83-108) mmHg ABG Total CO2 25 H (19-24) mmol/L ABG O2 Saturation 99.2 H (94-97) % Hemoglobin 10.3 L (13.0-17.5) gm/dL Potassium (3.5-5.1) mmol/L Chloride (98-107) mmol/L Carbon Dioxide (22-30) mmol/L BUN (9-20) mg/dL Glucose (74-99) mg/dL POC Glucose (mg/dL) 154 H (70-110) mg/dL Calcium (8.4-10.2) mg/dL Troponin I (0.000-0.034) ng/mL Total Protein (6.3-8.2) g/dL Albumin (3.5-5.0) g/dL Microbiology - Last 24 Hours (Table) 07/25/24 04:37 Gram Stain - Preliminary Sputum
--- NOTE | 2024-07-26 10:37 | P.PN ---
Subjective Progress Note Date: 07/26/24 Hospital course: Patient is a 78-year-old male with PMH of rheumatoid arthritis, hypertension and BPH was brought to the emergency department via EMS for cardiopulmonary arrest. His initial laboratory evaluation shows WBC of 19.7, hemoglobin 14.6, MCV of 74.8, platelet count 2 8, sodium 138, potassium 4.3, chloride 117, bicarb 13, BUN 18, creatinine 1.8. His cardiac troponin has been trending upward from 0.588--->14.9. Patient was recently seen at the hospital for the complaint of chest pain. Patient was diagnosed with type II ME slightly with elevated troponins likely secondary to COVID-19 pneumonitis. Echocardiogram showed LVEF of 55% and moderate pulmonary hypertension. Viral panel negative. Chest x-ray interpreted independently shows diffuse patchy infiltrate with groundglass opacities and bilateral pleural effusion. Brain CT shows no acute intracranial process. Chest CTA is negative for pulmonary embolism and patchy opacities throughout both lungs with small bilateral pleural effusions. EKG interpreted independently shows sinus bradycardia with a regular branch block. T wave inversions in anteroseptal and lateral leads. Echocardiogram shows LVEF of 25 to 30% and ischemic cardiomyopathy with apical hypokinesis. Repeat brain CT on 07/15/2024 shows concern for suspected left parietal subacute CVA compared to previous brain CT. CAT scan of the brain was repeated again on 07/17/2024 which at this time shows no acute intracranial process. Patient was taken to [facility] on 06/16/2024 with a successful stenting to mid and proximal LAD. Impella was taken out. Patient was extubated and was able to maintain his mean arterial pressure without Impella and pressors. Patient had worsening respiratory status and had to be reintubated on 07/19/2024. Hospital course complicated with A-fib with RVR and patient started on amiodarone drip. Patient had second intervention with stents put in OM1 of left circumflex and RCA on 07/20/2024. Patient underwent CRISTINE guided cardioversion successfully on 07/21/2024. Patient currently in sinus rhythm. Ejection fraction estimated be tween 35 to 40% with mild to moderate mitral regurgitation noted. Patient was extubated again on 07/23/2024 but had to be reintubated on 07/24/2024 for flash pulmonary edema. Subjective: Patient seen and examined today. Had episodes of bradycardia yesterday, req atropine, beta-kaela dosing decreased. Daughter/DPOA at bedside, pt is now no code. Plan is to try to wean off ventilator again after diuresis, and if he requires intubation again, to transition to comfort care. Objective: Vital signs reviewed General: Intubated and sedated HEENT: normocephalic, atraumatic, no tracheal deviation Respiratory: Bilateral rhonchi, mechanically ventilated CVS: perfusing all extremities, no distal gangrene, trace pitting edema GI: soft, ND : no SPT, no CVAT, heard is present Neuro: Sedated Data reviewed today: Pertinent Labs: WBC 16.8, hemoglobin 10.0, platelet count 501, sodium 144, potassium 4.3, chloride 109, bicarb 26, BUN 32, creatinine 1.22, calcium 8.5, troponin 0.244, BNP 5760 Pertinent imaging: Chest x-ray independently interpreted, shows worsening bilateral interstitial opacities compared to yesterday Assessment/Plan: #Out of the hospital cardiopulmonary arrest #NSTEMI status post stents to LAD, OM1 branch of LCx and mid RCA #Cardiogenic Shock status post Impella and pressors #Ischemic cardiomyopathy with ejection fraction of 25 to 30% #Recent history of atypical chest pain and COVID-19 pneumonitis #Acute encephalopathy, likely metabolic #Bilateral pulm edema Pulmonology following, patient reintubated on 07/18/2024 due to increased dyspnea; reintubated on 07/24/2024 DAPT: Aspirin 81 mg p.o. daily and Brilinta 90 mg p.o. twice daily Continue with atorvastatin 40 mg p.o. GDMT: Entresto 24-26 mg twice daily, Aldactone 25 mg p.o. daily, Lopressor 25 mg p.o. 3 times daily, Farxiga 10 mg p.o. daily Cardiology note reviewed, recs appreciated; beta-kaela decreased due to sinus bradycardia IV Lasix 40 mg every 8 hour, monitor electrolytes Daily weights and strict I's and O's Monitor CBC and BMP Order procalcitonin = 0.31 Order blood culture Order respiratory viral panel = negative Order sputum culture, pending Urine Legionella antigen = negative Pulmonology currently navigating abx - pt is on Zosyn 3.375 IVP every 8 hour #Paroxysmal A-fib with the RVR, now in sinus rhythm, status post cardioversion #Hypertension, uncontrolled Consider resumption of patient's home nifedipine vs addition of BiDil (or equivalent components) Continue with amiodarone 200 mg p.o. daily, metoprolol 25mg TID, and Eliquis 5 mg p.o. twice daily Continue cardiac monitoring Cardiology following as above #Subacute left parietal CVA PT/OT/SPT once patient is extubated Neurology following, likely had watershed infarct due to cardiac arrest Brain MRI ordered, follow-up on results Continue with oral tube feeds #Bandemia, likely reactive to above, resolved #Normocytic anemia secondary to above #Anion gap metabolic acidosis secondary to lactic acid, resolved #Hypermagnesemia, resolved #Euthyroid sick syndrome secondary above TSH 7.63, free T4 - 0.8 Chronic conditions: BPH: Resume Flomax DVT prophylaxis: Eliquis 5 mg p.o. twice daily GI prophylaxis: Protonix 40 mg p.o. daily CODE STATUS: Full code Anticipated discharge place: Pending clinical course Objective - Vital Signs Vital signs: Vital Signs Temp 98.7 F 07/26/24 08:00 Pulse 52 L 07/26/24 10:15 Resp 18 07/26/24 10:15 BP 113/53 07/25/24 09:45 Pulse Ox 98 07/26/24 10:15 FiO2 50 07/26/24 08:00 Intake & Output 07/25/24 07/26/24 07/26/24 18:59 06:59 18:59 Intake Total 242.800 7960.614 435.705 Output Total 1490 1500 205 Balance -503.814 -109.386 230.705 Weight 104.2 kg 106 kg Intake: IV 340 220 180 0.9 KVO @ 20 220 80 Piperacillin-Tazobactam 3 100 100 .375 gm In Sodium Chloride 0.9% 100 ml @ 25 mls/hr IVPB Q8H [facility] Rx#: [id number] Sodium Chloride 0.9% 1, 240 000 ml @ 20 mls/hr IV . Q24H [facility] Rx#:[id number] Intake, IV Titration 516.186 770.614 135.705 Amount Norepinephrine 4 mg In 251.596 391.044 Sodium Chloride 0.9% 250 ml @ 0.03 MCG/KG/MIN 12. 459 mls/hr IV .[id number] [facility] Rx#:[id number] propofoL 1,000 mg In 264.590 379.57 135.705 Empty Bag 1 bag @ 15 MCG/ KG/MIN 9.81 mls/hr IV . [id number] [facility] Rx#:[id number] Tube Feeding 100 220 60 Other 30 180 60 Output: Urine 1490 1500 205 Other: Voiding Method Indwelling Catheter Indwelling Catheter Indwelling Catheter ABP, PAP, CO, CI - Last Documented Arterial Blood Pressure 132/40 - Labs CBC & Chem 7: 07/26/24 03:42 07/26/24 03:12 Labs: Abnormal Lab Results - Last 24 Hours (Table) 07/25/24 07/25/24 07/25/24 Range/Units 10:00 11:11 12:23 WBC (3.8-10.6) k/uL Hgb (13.0-17.5) gm/dL Hct (39.0-53.0) % MCV (80.0-100.0) fL MCH (25.0-35.0) pg MCHC (31.0-37.0) g/dL RDW (11.5-15.5) % Plt Count (150-450) k/uL ABG pH (7.35-7.45) ABG pCO2 (35-45) mmHg ABG pO2 (83-108) mmHg ABG Total CO2 (19-24) mmol/L ABG O2 Saturation (94-97) % Hemoglobin (13.0-17.5) gm/dL Potassium (3.5-5.1) mmol/L Chloride 113 H (98-107) mmol/L Carbon Dioxide (22-30) mmol/L BUN 31 H (9-20) mg/dL Glucose 116 H (74-99) mg/dL POC Glucose (mg/dL) 118 H (70-110) mg/dL Calcium 8.1 L (8.4-10.2) mg/dL Troponin I 0.244 H* (0.000-0.034) ng/mL Total Protein 6.1 L (6.3-8.2) g/dL Albumin 2.9 L (3.5-5.0) g/dL 07/25/24 07/25/24 07/26/24 Range/Units 18:11 23:55 03:12 WBC (3.8-10.6) k/uL Hgb (13.0-17.5) gm/dL Hct (39.0-53.0) % MCV (80.0-100.0) fL MCH (25.0-35.0) pg MCHC (31.0-37.0) g/dL RDW (11.5-15.5) % Plt Count (150-450) k/uL ABG pH (7.35-7.45) ABG pCO2 (35-45) mmHg ABG pO2 (83-108) mmHg ABG Total CO2 (19-24) mmol/L ABG O2 Saturation (94-97) % Hemoglobin (13.0-17.5) gm/dL Potassium 2.8 L (3.5-5.1) mmol/L Chloride 112 H (98-107) mmol/L Carbon Dioxide 21 L (22-30) mmol/L BUN 28 H (9-20) mg/dL Glucose 145 H (74-99) mg/dL POC Glucose (mg/dL) 114 H 116 H (70-110) mg/dL Calcium 7.9 L (8.4-10.2) mg/dL Troponin I (0.000-0.034) ng/mL Total Protein 6.2 L (6.3-8.2) g/dL Albumin 2.9 L (3.5-5.0) g/dL 07/26/24 07/26/24 07/26/24 Range/Units 03:42 05:05 05:25 WBC 11.1 H (3.8-10.6) k/uL Hgb 10.1 L (13.0-17.5) gm/dL Hct 33.1 L (39.0-53.0) % MCV 66.4 L (80.0-100.0) fL MCH 20.2 L (25.0-35.0) pg MCHC 30.4 L (31.0-37.0) g/dL RDW 16.2 H (11.5-15.5) % Plt Count 548 H (150-450) k/uL ABG pH 7.54 H (7.35-7.45) ABG pCO2 29 L (35-45) mmHg ABG pO2 121 H (83-108) mmHg ABG Total CO2 25 H (19-24) mmol/L ABG O2 Saturation 99.2 H (94-97) % Hemoglobin 10.3 L (13.0-17.5) gm/dL Potassium (3.5-5.1) mmol/L Chloride (98-107) mmol/L Carbon Dioxide (22-30) mmol/L BUN (9-20) mg/dL Glucose (74-99) mg/dL POC Glucose (mg/dL) 154 H (70-110) mg/dL Calcium (8.4-10.2) mg/dL Troponin I (0.000-0.034) ng/mL Total Protein (6.3-8.2) g/dL Albumin (3.5-5.0) g/dL Microbiology - Last 24 Hours (Table) 07/25/24 04:37 Gram Stain - Preliminary Sputum
--- NOTE | 2024-07-26 10:56 | P.PN ---
Subjective Progress Note Date: 07/26/24 Principal diagnosis: Cardiac arrest and acute hypoxic respiratory failure This is a 78-year-old male patient with a history of rheumatoid arthritis, hypertension, BPH. He was recently here in May for atypical chest pain and COVID-19 pneumonitis. Discharged home on May 15, 2024. Since that time he had been doing well. Pain the patient was having a 2 to 3-day history of worsening shortness of breath. He was active yesterday and cleaning out his garage and did complain of shortness of breath and some chest discomfort. He developed worsening shortness of breath throughout the night. EMS was called and the arrival the patient had collapse. He was pulseless and CPR was started taking approximately 5 minutes until return of spontaneous circulation. He was brought in and being assisted with a bag valve mask device and a pulse ox of 74 and then intubated in the emergency department. He was brought up to the intensive care unit. He is currently intubated, sedated on the mechanical ventilator at a rate of 24, tidal volume 450, FiO2 90% and a PEEP of 10. Blood gases had revealed a PaO2 of 70, pCO2 of 62 and a pH of 7.14 on 100% FiO2. He is on fentanyl at 1.5 mcg/kg/h. He is currently on a heparin drip per weight- based protocol. Norepinephrine at 13.5 mcg/min. Propofol at 30 mcg/kg/min. CT scan of the brain revealed no acute findings. CT angiogram revealed no evidence of pulmonary embolism. There is small bilateral effusions. Some patchy airspace opacity/consolidation throughout both lungs. Mild groundglass opacities. White count 19.7. Hemoglobin 14.6. Platelets 208. Sodium 138. Potassium 4.3. Bicarb 13. BUN 18. Creatinine 1.13. Glucose 313. Troponin 0.588. proBNP 2770. TSH 7.36. Viral screen is negative. The patient is seen today July 12, 2024 in follow-up in the intensive care unit. He remains intubated sedated on the mechanical ventilator. Currently in assist-control mode with a rate of 30, tidal volume 450, FiO2 40% and a PEEP of 10. Morning blood gases revealed a PaO2 of 163, pCO2 of 26 and a pH of 7.49 and 50% FiO2. The PEEP will be decreased to 5. He is currently on cefazolin. Remains on bronchodilators. He is continued on a heparin drip per weight-based protocol. Norepinephrine at 0.03 mcg/kg/min. Propofol at 35 mcg/kg/min. Fentanyl drip at 1.25 mcg/kg/h. White count 9.6. Hemoglobin 11.4. Platelets 166. Sodium 136. Potassium 3.9. Bicarb 18. BUN 29. Creatinine 1.47. Glucose 114. Continue tube feedings of vital AF at a rate of 10 with a goal of 57. Will be on hold for cardiac catheterization today 07/13/2024, the patient is being seen for a follow-up. The patient remains intubated on the mechanical ventilator. He requires mechanical support for his cardiogenic shock postcardiac arrest and the patient is an Impella with a P7 support and a 3.1 L/min of augmentation. The patient remains on sedatives and the patient is currently on propofol the patient is 0.7. On the mechanical ventilator at a rate of 30, tidal volume of 450, FiO2 40% with PEEP of 5. Blood gas showed pH of 7.46 with a pCO2 of 27 and pO2 of 97. Chest x-ray shows cardiomegaly without any acute abnormalities. Orotracheal tubes are in good perfusion. The patient is currently on KVO IV fluids. The patient is on no pressors and the patient was taken off norepinephrine and is producing adequate amount of urine output in the order of 50 cc an hour. He remains on IV heparin. Creatinine is improved and the patient's creatinine peaked at 1.47 and currently is down to 1.08. He has a left subclavian triple-lumen catheter in place. Child Nurse on the case and the patient underwent a cardiac catheterization on 07/12/2024 and the patient was found to have extremely calcified right and left coronary system with evidence of triple-vessel coronary artery disease and severely elevated left ventricular end-diastolic pressure. The white cell count at 7.9 with a hemoglobin 10.8 and a platelet count of 123. Sodium levels at 135, bicarbonate 18, BUN 27 with a creatinine of 1.08. LDH lev el is at 984. The echocardiogram was completed and the patient was found to have severe impairment of the LV function with an ejection fraction of 25 to 30%. There is also severe cardiomyopathy with wall motion abnormalities involving the apical area that was quite hypokinetic. The patient remains on aspirin. The patient remains on statins and the patient is currently on Lipitor 40 mg p.o. daily. Remains on IV heparin. He is also on vital AF for enteral feeding and nutritional support. Child Nurse on the case. Cardiothoracic surgery was also involved in his care. The patient was deemed a high surgical risk for coronary intervention and bypass. On 07/14/2024, the patient is being seen for a follow-up. The patient remains sedated and the patient is currently on a combination of propofol running at 40 mcg/kg/min and fentanyl at 0.75 mcg/kg/h. The patient remains well sedated on mechanical ventilator and Impella for mechanical support for cardiogenic shock. This morning, the patient's Impella has been switched to P4 support with an augmentation of 2.5 L/min. The patient remains off pressors. Is producing adequate amount of urine output. Fluid balance is +1 L over the past 24 hours. He is hemolyzing and the hemoglobin is currently down to 9.9. Most recent LDH is at 946. At the same time, the patient remains on the mechanical ventilator. He is on assist-control mode with rate of 18, tidal volume of 450, FiO2 40% with a PEEP of 5. The blood gas from today shows a pH of 7.33 with a pCO2 of 41 and pO2 of 97. Chest x-ray is consistent with CHF/increased incisional markings consistent with heart failure. Orotracheal tube is in a good location. The patient has diffuse interstitial pattern bilaterally along with cardiomegaly and he has developed some small bilateral pleural effusions worse on the left. He remains on IV heparin. Remains on enteral feeding for additional support and the patient is currently on vital AF at rate of 35 cc an hour. IV fluids are currently at KVO. The patient's cardiac rhythm is sinus. The white cell count is 6.7 with a hemoglobin 9.9 and a platelet count of 106. The BUN is 17 with a creatinine of 0.8 and a sodium levels at 137, bicarb is at 22. 07/15/2024, the patient is being seen for a follow-up. The patient has signs of anoxic encephalopathy. The patient was given sedation holiday yesterday and he did not demonstrate adequate neurologic recovery. It was noted that he was not moving his right side effectively compared to the left. Based on that, the patient was placed back on propofol which is currently running at 40 mcg/kg/min. Attempts to wean off his Impella failed yesterday the patient became hypo tensive. The patient was given IV fluids and norepinephrine and the patient is currently off norepinephrine. He has Impella is augmenting at P4 level with 2.5 L/min augmentation. Fluid balance is +600 cc over the past 24 hours and the patient is producing urine output in the order of 30 to 40 cc an hour. No diuretics for now. Chest x-ray still showing CHF and bilateral pleural effusion right more than left. Remains on mechanical ventilator, assist-control mode with rate of 16, tidal volume of 450, FiO2 40% with a PEEP of 5. pH is 7.34 with a pCO2 of 43 and pO2 of 86. He is doing abdominal breathing and based on that, the patient was switched to pressure control mode of mechanical mario tilation. He is on vital AF at a rate of 35 cc an hour. The white cell count is 7.4, hemoglobin 9.6, his platelet count is at 116. LDH level is 625. Electrolytes are all within normal limits with a BUN of 14 and a creatinine of 0.7. Noted the patient's platelet count has dropped during this current admission and the patient remains on IV heparin. A limited echocardiogram was done yesterday and the patient was found to have impaired LV function with an estimated ejection fraction of around 40%. The patient also had segmental wall motion abnormalities. There was moderate LV dysfunction based on the echocardiogram. 07/16/2024, the patient is being seen for a follow-up. Events from yesterday was noted. Following a failed sedation holiday, the patient was noted to have some right-sided weakness. Based on that, a CAT scan of the brain was done and it showed a low-attenuation area in the left parietal lobe suspecting an evolving stroke. Another sedation holiday will be given today. Meanwhile, the patient will be kept on Impella pending cardiac catheterization and coronary inter vention as planned by cardiology. The patient is currently on a pressure control mode of mechanical ventilation, at rate of 18, pressure control of 20, FiO2 of 40% with a PEEP of 5. Blood gas showed a pH of 7.34 with pCO2 49 and pO2 of 92. Remains on IV heparin. He had some episodic hematuria but subsided. Fluid balance is -687 cc over the past 24 hours. Patient was receiving enteral feeding for nutritional support and currently it is on hold in preparation for cardiac catheterization. He was receiving vital AF at rate of 35 cc an hour. IV fluids are currently at KVO. The patient remains on IV Lasix. Meanwhile, the white cell count is 5.9, hemoglobin is 8.9 and a platelet count is 20. The patient's BUN is 15 with a creatinine of 0.7. Serum bicarb is at 28. Sodium levels at 137 and a potassium level is at 4.2. The patient remains on Impella with P4 support and 2.5 liters per minute of cardiac augmentation. The renal function remains stable with a BUN of 15 and a creatinine of 0.7. The LDH level is 511. Chest x-ray findings from today shows CHF, findings are essentially stable. He is afebrile. 07/17/2024, patient is being seen for a follow-up. The patient underwent a cardiac catheterization yesterday and the patient underwent successful stenting of the proximal and mid LAD. Following that, the Impella was discontinued and the patient was brought back to the intensive care unit. This morning, the patient remains sedated on propofol which is running at 25 mcg/kg/min and fentanyl at 0.5 mcg/kg/h. He remains on assist-control mode of mechanical ventilation. Pressure control cycled, with a pressure control of 20, rate of 16, FiO2 40% with a PEEP of 5. Blood gas showed a pH of 7.4 with a pCO2 40 and pO2 112. Chest x-ray shows cardiomegaly with bilateral pleural effusions and orotracheal tube is in good location. Fluid balance is plus a 1.5 L over the past 24 hours. Patient is on enteral feeding for nutritional support. A repeat CAT scan of the brain and C-spine was done yesterday and the CAT scan showed no acute intracranial process. Chronic appearing periventricular white matter ischemic changes were seen and there were less pronounced on the follow-up CAT scan. The white cell count of 5.5, hemoglobin is 8.7, platelet count is 97, BUN is at 16 with a creatinine of 0.7, bicarb is 23 and sodium levels at 135. LFTs are within normal limits. Afebrile. Hemodynamically stable on no pressors. Off the nitroglycerin drip for now. Cardiac rhythm is sinus bradycardia in the mid 50s. 07/18/2024, the patient was extubated and the patient was awake and alert and communicating. Earlier this morning, the patient was on oxygen at 2 L/min nasal cannula and chest x-ray was still showing CHF and bilateral pleural effusion and pulm vessel congestion. He was hemodynamically stable. He was off pressors. He had no complaints. As such, the patient was started on Entresto 24/25 1 tablet a day and the patient was kept on a combination of aspirin and Brilinta. The patient was also receiving Lasix 20 mg IV every 12 hours. The fluid balance is -2 L over the past 24 hours. On neurologic exam, the patient was unable to move his right upper extremity and there is an obvious right lower extremity weakness consistent with an acute CVA. Motor function on the left side was adequate at this point. Following our rounds, the patient became acutely short of breath and he became tachypneic and severe respiratory distress. He was placed on a BiPAP and the blood gas showed severe respiratory acidosis and a chest x-ray was consistent with acute pulmonary edema. Based on that, I had to intubate the patient and I placed him on the mechanical ventilator. Initial blood gases post mechanical ventilation showed a pH of 7.17 with a pCO2 of 66 and pO2 of 151 and based on that, increase the tidal volume to 450, increase the rate up to 28 and dropped FiO2 down to 80%. He remained hemodynamically stable. Slightly hypertensive. BUN is 19 with a creatinine of 0.7. Sodium levels at 139. WBC count 6.4 with a hemoglobin 8.7 and a platelet count of 107. Post intubation chest x-ray was consistent with pulmonary edema. ET tube noted to be pushed in by another 2 cm. He is currently on propofol which is running at 40 mcg/kg/min, calm and comfortable. On 07/19/2024, the patient is being seen for a follow-up. The patient remains intubated on the mechanical ventilator earlier this morning the patient was on propofol running at 50 mcg/kg/min. He failed extubation due to an acute pulmonary edema and the patient had to be reintubated. His current cardiac rhythm is sinus bradycardia. He also has conduction delay and widened QRS p robably a bundle branch block pattern. This was present since his admission. He was having few episodes of bradycardia and based on that the beta-blockers were placed on hold. He is still on IV Lasix 20 mg every 12 hours. Fluid balance is -2 L over the past 24 hours. He is on assist-control mode with rate of 28, tidal volume of 450, FiO2 of 60% with a PEEP of 5. Blood gas showed pH of 7.51 with a pCO2 of 33 and pO2 of 120. Chest x-ray still showing pulmonary edema. The patient was started on Entresto. He was started also on enteral feeding for nutritional support and the patient is on vital AF. Afebrile. No other significant issues overnight. Cardiology remains on the case. Remains on aspirin and Brilinta. Patient was evaluated today at 07/20/2024, remains in the ICU, intubated and mechanically ventilated, patient is on assist-control rate of 22 tidal volume 450 FiO2 40% and PEEP of 5 ABG showed a pO2 of 82 pCO2 35 pH of 7.50 FiO2 was cut down to 20. Increase flow rate to 60 L/min. Patient is on amiodarone at 0.5 mg/min IV fluid is running at 75 cc/h patient is scheduled to undergo repeat cardiac catheterization today. His last ejection fraction on echocardiogram was 15 to 20%. Patient failed weaning at 1 point as he developed pulmonary edema shortly after he was extubated. Patient also had a previous stent of the LAD on his initial admission he had an Impella device placed and has been removed patient continues to have right-sided weakness. Intermittently the patient is in atrial fibrillation continues on amiodarone. Again he scheduled to have cardiac catheterization today. Chest x-ray continues to show evidence of pulmonary edema. WBC count is 10.5 hemoglobin is 9.6 basic metabolic profile is normal and renal profile is normal. Evaluated today on 07/21/2024, remains in the ICU, intubated mechanically ventilated, patient underwent multiple stents to RCA and obtuse marginal 1 and he was found to have patent stent in LAD patient is on assist-control rate of 20 tidal volume 450 FiO2 40% and PEEP of 5 ABG showed a pO2 of 86 pCO2 38 pH of 7.46. Patient remains on amiodarone at 0.5 mg/min propofol 30 mg/kg/min norepinephrine is presently on hold, remains on Lasix 20 mg IV push twice daily, patient is scheduled to have CRISTINE and possible cardioversion today. Antibiotics grullon he received cefepime considering a chest x-ray continues show bibasilar infiltrates, I recommended that we start the patient on Zosyn. And will check procalcitonin. Discussed today his condition with cardiology again planning CRISTINE and cardioversion WBC count is 12.1 hemoglobin 9.5.Basic metabolic profile is normal renal profile is normal Patient was seen today on 07/22/2024, remains in the ICU, intubated and mechanically ventilated. Patient remains on assist-control rate of 20 tidal volume 450 FiO2 40% and PEEP of 5 ABG showed a pO2 of 85 pCO2 4 0 pH of 7.43, chest x-ray continues to show evidence of bilateral interstitial infiltrates/edema patient did receive Lasix and he remains on Lasix 20 mg IV push every 12 hours with marginal urine output. His procalcitonin was normal patient remains empirically on Zosyn. Chest x-ray was reviewed patient was on propofol at 5 mcg/kg/min, and I recommended stopping propofol, patient was given a short weaning trial for about half an hour on pressure support of 14 and CPAP, patient did not seem to do well with the pressure support, he became quite tachypneic, tachycardic, and he had lots of secretions coming out of the endotracheal tube. Hence no further weaning was attempted, patient be placed back on AC mode of mechanical ventilation, and he is not quite ready to wean. WBC count today is 9.6 hemoglobin 8.8 PTT is 52, basic metabolic profile is normal BUN is 32 creatinine 1.15 Patient was evaluated today on 07/23/2024, patient remains in the ICU, intubated and mechanically ventilated, on assist-control rate 20 tidal volume 450 FiO2 40% PEEP of 5 ABG showed a pO2 of 95 pCO2 40 pH of 7.43 chest x-ray is showing interstitial edema/infiltrates. Patient is on propofol at 25 IV fluid at KVO Lasix was given earlier 20 mg IV push was given x 1 patient remains on Zosyn empirically remains on Eliquis for his cardiac arrhythmia. Continues to have secretions but the secretions are clear. Less today compared to yesterday, hence the patient may be given a weaning trial on pressure support and CPAPWBC count is 9.6 hemoglobin 8.9 electrolytes are normal renal profile showed a BUN of 40 creatinine 1.29 slightly worse compared to yesterday's creatinine of 1.15. Patient elevated today on 07/24/2024, remains in the ICU, he is on 4 L nasal cannula, extubated yesterday, tolerated the extubation well. Patient has a relatively strong cough, remains on diuretics, remains on Zosyn, remains on Eliquis. He is on 4 L nasal cannula, does not seem to be in any distress, however is a bit slow. Patient is in sinus rhythm, hemodynamically stable, no evidence of any ectopy or recurrent atrial fibrillation. Denies any chest discomfort. Lasix was increased to 20 mg IV push every 12 hours, chest x-ray is showing slight worsening of his interstitial edema, underlying pneumonia is not entirely ruled out, patient is receiving Zosyn, procalcitonin level was normal. In addition to Lasix, patient is also on Aldactone 25 mg daily he is also on metoprolol, Brilinta, Entresto, and Lipitor as well as aspirin and amiodarone Patient was evaluated today on 07/25/2024, patient remains in the ICU, as matte r-of-fact last night the patient took a downhill course, he developed what seems to be a picture of pulmonary edema, patient did not do well with BiPAP, continued to desaturate, he was quite tachypneic, I was notified about this patient around 10:30 PM, patient was in respiratory distress, I recommended immediate intubation and mechanical ventilation. Patient was reintubated last night around 1045, he is now on assist-control rate of 22 tidal volume 500 FiO2 down to 45% he was on 100% earlier PEEP of 5 and flow rate is 65 L/min. Patient is prop on propofol but not on norepinephrine, blood pressure is marginal. Patient did receive Lasix 40 mg IV push every 8 hours remains on Eliquis remains on Zosyn for presumptive aspiration pneumonia. His ABG earlier today showed a pO2 of 273 pCO2 37 pH of 7.43. ABG right after intubation showed a pO2 of 73 pCO2 of 60 pH of 7.23 the patient is down to 45%, PEEP is at 5, and he is on rate of 22 with tidal volume 500. WBC count today is 16.8 hemoglobin is 10, basic metabolic profile is normal BUN is 31 creatinine 1.19Current BNP level is 5760 with normal procalcitonin level of 0.22 chest x-ray is showing improving pulmonary edema chest x-ray this morning is better than the chest x-ray he had at the time of intubation Today on 07/26/2024, patient is basically about the same intubated and mechanically ventilated, he is on assist-control rate of 22 tidal volume 500 FiO2 50% and PEEP of 5 ABG showed a pO2 of 121 pCO2 29 pH of 7.54 hence his rate was cut down to 18 and his FiO2 cut down to 40%. Patient is on propofol at 50 mcg/kg/min he is also on norepinephrine at 0.08 mcg/kg/min IV fluids at KVO, remains on Lasix 40 mg IV push every 8 hours. Patient is also on Eliquis. His sister who is also his power of attorney recruiter/legal guardian, requested DNR CODE STATUS. Patient is not arousable at this point since he is on propofol, but I plan to discontinue propofol, awaken the patient, and give the patient a weaning trial, I have explained to the sister his condition, and she is agreeable to proceed with trials of weaning, however if the patient is extubated and needed to be reintubated, not to reintubate and go to comfort care measures at this point. Patient will definitely be given weaning trials hopefully today once he is awake and appropriate. Chest x-ray is showing improvement in his pulmonary edema nonetheless it is not completely resolved. WBC count today is 11.1 hemoglobin is 10.1. Potassium is low at 2.8 being addressed accordingly his BUN is 28 creatinine 1.17. Objective - Vital Signs Vital signs: Vital Signs Temp 98.7 F 07/26/24 08:00 Pulse 52 L 07/26/24 10:15 Resp 18 07/26/24 10:15 BP 113/53 07/25/24 09:45 Pulse Ox 98 07/26/24 10:15 FiO2 50 07/26/24 08:00 Intake & Output 07/25/24 07/26/24 07/26/24 18:59 06:59 18:59 Intake Total 391.370 1663.614 443.063 Output Total 1490 1500 205 Balance -503.814 -109.386 238.063 Weight 104.2 kg 106 kg Intake: IV 340 220 180 0.9 KVO @ 20 220 80 Piperacillin-Tazobactam 3 100 100 .375 gm In Sodium Chloride 0.9% 100 ml @ 25 mls/hr IVPB Q8H [facility] Rx#: [id number] Sodium Chloride 0.9% 1, 240 000 ml @ 20 mls/hr IV . Q24H [facility] Rx#:[id number] Intake, IV Titration 516.186 770.614 143.063 Amount Norepinephrine 4 mg In 251.596 391.044 Sodium Chloride 0.9% 250 ml @ 0.03 MCG/KG/MIN 12. 459 mls/hr IV .[id number] [facility] Rx#:[id number] propofoL 1,000 mg In 264.590 379.57 143.063 Empty Bag 1 bag @ 15 MCG/ KG/MIN 9.81 mls/hr IV . [id number] [facility] Rx#:[id number] Tube Feeding 100 220 60 Other 30 180 60 Output: Urine 1490 1500 205 Other: Voiding Method Indwelling Catheter Indwelling Catheter Indwelling Catheter ABP, PAP, CO, CI - Last Documented Arterial Blood Pressure 132/40 - Exam GENERAL EXAM: Revealed a 78-year-old male on mechanical ventilation, sedated, on propofol. HEAD: Normocephalic. Atraumatic, endotracheal tube and orogastric tube are intact. EYES: Normal reaction of pupils, equal size. NOSE: Clear with pink turbinates. THROAT: Dry mucous membranes NECK: No masses, no JVD. CHEST: No chest wall deformity. Symmetrical expansion minimal crackles at the bases CVS: Distant S1 and S2 normal with no audible murmur, regular rhythm. ABDOMEN: No hepatosplenomegaly, normal bowel sounds, no guarding or rigidity. SKIN: No rashes CENTRAL NERVOUS SYSTEM: Could not assess sedated on propofol Psychiatric: Could not assess EXTREMITIES: No clubbing, trace of bipedal edema, no cyanosis. Good pulses bilaterally - Labs CBC & Chem 7: 07/26/24 03:42 07/26/24 03:12 Labs: Abnormal Lab Results - Last 24 Hours (Table) 07/25/24 07/25/24 07/25/24 Range/Units 10:00 11:11 12:23 WBC (3.8-10.6) k/uL Hgb (13.0-17.5) gm/dL Hct (39.0-53.0) % MCV (80.0-100.0) fL MCH (25.0-35.0) pg MCHC (31.0-37.0) g/dL RDW (11.5-15.5) % Plt Count (150-450) k/uL ABG pH (7.35-7.45) ABG pCO2 (35-45) mmHg ABG pO2 (83-108) mmHg ABG Total CO2 (19-24) mmol/L ABG O2 Saturation (94-97) % Hemoglobin (13.0-17.5) gm/dL Potassium (3.5-5.1) mmol/L Chloride 113 H (98-107) mmol/L Carbon Dioxide (22-30) mmol/L BUN 31 H (9-20) mg/dL Glucose 116 H (74-99) mg/dL POC Glucose (mg/dL) 118 H (70-110) mg/dL Calcium 8.1 L (8.4-10.2) mg/dL Troponin I 0.244 H* (0.000-0.034) ng/mL Total Protein 6.1 L (6.3-8.2) g/dL Albumin 2.9 L (3.5-5.0) g/dL 07/25/24 07/25/24 07/26/24 Range/Units 18:11 23:55 03:12 WBC (3.8-10.6) k/uL Hgb (13.0-17.5) gm/dL Hct (39.0-53.0) % MCV (80.0-100.0) fL MCH (25.0-35.0) pg MCHC (31.0-37.0) g/dL RDW (11.5-15.5) % Plt Count (150-450) k/uL ABG pH (7.35-7.45) ABG pCO2 (35-45) mmHg ABG pO2 (83-108) mmHg ABG Total CO2 (19-24) mmol/L ABG O2 Saturation (94-97) % Hemoglobin (13.0-17.5) gm/dL Potassium 2.8 L (3.5-5.1) mmol/L Chloride 112 H (98-107) mmol/L Carbon Dioxide 21 L (22-30) mmol/L BUN 28 H (9-20) mg/dL Glucose 145 H (74-99) mg/dL POC Glucose (mg/dL) 114 H 116 H (70-110) mg/dL Calcium 7.9 L (8.4-10.2) mg/dL Troponin I (0.000-0.034) ng/mL Total Protein 6.2 L (6.3-8.2) g/dL Albumin 2.9 L (3.5-5.0) g/dL 07/26/24 07/26/24 07/26/24 Range/Units 03:42 05:05 05:25 WBC 11.1 H (3.8-10.6) k/uL Hgb 10.1 L (13.0-17.5) gm/dL Hct 33.1 L (39.0-53.0) % MCV 66.4 L (80.0-100.0) fL MCH 20.2 L (25.0-35.0) pg MCHC 30.4 L (31.0-37.0) g/dL RDW 16.2 H (11.5-15.5) % Plt Count 548 H (150-450) k/uL ABG pH 7.54 H (7.35-7.45) ABG pCO2 29 L (35-45) mmHg ABG pO2 121 H (83-108) mmHg ABG Total CO2 25 H (19-24) mmol/L ABG O2 Saturation 99.2 H (94-97) % Hemoglobin 10.3 L (13.0-17.5) gm/dL Potassium (3.5-5.1) mmol/L Chloride (98-107) mmol/L Carbon Dioxide (22-30) mmol/L BUN (9-20) mg/dL Glucose (74-99) mg/dL POC Glucose (mg/dL) 154 H (70-110) mg/dL Calcium (8.4-10.2) mg/dL Troponin I (0.000-0.034) ng/mL Total Protein (6.3-8.2) g/dL Albumin (3.5-5.0) g/dL Microbiology - Last 24 Hours (Table) 07/25/24 04:37 Gram Stain - Preliminary Sputum Assessment and Plan Assessment: Impression: Status post cardiac arrest, [id number] CPR, downtime about 5 minutes. Acute hypoxic respiratory failure secondary to above. Patient has developed extensive pulmonary edema secondary to LV dysfunction secondary to ischemic cardiomyopathy. Pulmonary edema with bilateral pleural effusions Acute non-ST segment elevation myocardial infarction, status post cardiac catheterization indicating triple-vessel coronary artery disease, status post cardiac catheterization and stenting x 2 of the mid and proximal LAD and the patient is currently on a combination of aspirin and Brilinta and the Impella has been discontinued Cardiogenic shock, required Impella device, for a brief period of time Acute CVA with motor weakness in the right side, right upper extremity more than right lower extremity. Acute kidney injury, recovered and the patient is producing adequate amount of urine output Recent discharge in May 2024 for atypical chest pain and COVID-19 infection/pneumonitis Rheumatoid arthritis Hypertension Benign prostatic hyperplasia Thrombocytopenia, improving Chronic anemia Reintubation on 07/16/2024 mostly because of worsening pulmonary edema, patient pulled out his own endotracheal tube at that time Reintubation on 07/24/2024 Recommendation: Discussed and updated his sister at bedside about his condition, she requested DNR CODE STATUS and made aware that we will try to give him a weaning trial today, if extubated the patient is not to be reintubated. Patient was extubated on 07/23/2024, tolerated the extubation well until late in the day 07/24/2024, patient had to be reintubated with worsening pulmonary edema Continue diuretics and antibiotics Lasix is now at 40 mg IV push every 8 hours Continue dual antiplatelet treatment Continue anticoagulation continue nutritional support/enteral feeding Continue Entresto, continue Brilinta, continue Eliquis, continue beta-blockers and amiodarone 200 mg daily. Patient is also on aspirin Taper and discontinue propofol and awaken the patient assess weaning parameters today Continue to monitor I's and O's and daily labs. Daily x-rays of the chest patient remains critically ill Critical care time is over 30, not including time spent on procedures Discussed condition with his sister at bedside Will continue to follow Time with Patient: Greater than 30
[2024-07-26 11:34] LABS: Glucose,Whole Blood 135 mg/dL (70-110)
[2024-07-26 12:20] LABS: ABG Base Excess 3.9 mmol/L; ABG HCO3 28 mmol/L (21-25); ABG Oxygen Saturation 96.7 % (94-97); ABG PCO2 41 mmHg (35-45); ABG PH 7.45 (7.35-7.45); ABG PO2 88 mmHg (83-108); ABG TCO2 30 mmol/L (19-24)
[2024-07-26 12:22] LABS: Allen Test Performed? no
[2024-07-26] MEDS: DEXMEDETOMIDINE/0.9% NACL(PMX) 400 MCG in EMPTY BAG 1 BAG IV SCH (12:30)
[2024-07-26 17:58] LABS: Glucose,Whole Blood 127 mg/dL (70-110)
[2024-07-26 23:20] LABS: Glucose,Whole Blood 139 mg/dL (70-110)
[2024-07-27 04:34] LABS: Anisocytosis Slight; Basophils # (A) 0.1 k/uL (0-0.2); Basophils % (A) 1 %; Eosinophils # (A) 0.3 k/uL (0-0.7); Eosinophils % (A) 4 %; Hypochromasia Marked; Lymphocytes % (A) 24 %; MCH 20.1 pg (25.0-35.0); MCHC 30.2 g/dL (31.0-37.0); MCV 66.6 fL (80.0-100.0); Mean Platelet Volume 9.4; Microcytosis Marked; Monocytes # (A) 0.5 k/uL (0-1.0); Monocytes % (A) 6 %; Neutrophils # (A) 5.4 k/uL (1.3-7.7); Neutrophils % (A) 64 %; Platelet Count 394 k/uL (150-450); Poikilocytosis Slight; RDW 16.2 % (11.5-15.5); WBC 8.4 k/uL (3.8-10.6)
[2024-07-27 04:44] LABS: ALT 23 U/L (4-49); AST 30 U/L (17-59); African American GFR (CKD) 65 (>60 ml/min/1.73 sqM); Albumin 2.9 g/dL (3.5-5.0); Alkaline Phosphatase 63 U/L (38-126); Anion Gap 5 mmol/L; Blood Urea Nitrogen 28 mg/dL (9-20); Calcium 8.1 mg/dL (8.4-10.2); Carbon Dioxide 28 mmol/L (22-30); Chloride 111 mmol/L (98-107); Glucose 135 mg/dL (74-99); Magnesium 1.9 mg/dL (1.6-2.3); Non-African American GFR(CKD) 57 (>60 ml/min/1.73 sqM); Potassium 3.6 mmol/L (3.5-5.1); Sodium 144 mmol/L (137-145); Total Bilirubin 0.9 mg/dL (0.2-1.3); Total Protein 6.2 g/dL (6.3-8.2)
[2024-07-27] MEDS ORDERED: Magnesium Replacement Protocol 1 EACH MISC MISCELLANE PRN (05:18)
[2024-07-27] MEDS: POTASSIUM BICARBONATE/CIT AC 20 MEQ TABLET.EFF NG-TUBE SCH (05:25)
[2024-07-27 05:35] LABS: Glucose,Whole Blood 126 mg/dL (70-110)
[2024-07-27] MEDS: MAGNESIUM SULFATE-D5W PMX 1 GM in DEXTROSE/WATER 1 100ML.BAG IVPB ONE (05:39)
[2024-07-27 05:42] LABS: ABG HCO3 29 mmol/L (21-25); ABG Oxygen Saturation 96.8 % (94-97); ABG PCO2 37 mmHg (35-45); ABG PH 7.51 (7.35-7.45); ABG PO2 82 mmHg (83-108); ABG TCO2 30 mmol/L (19-24); Allen Test Performed? Yes
--- NOTE | 2024-07-27 08:13 | XR ---
EXAMINATION TYPE: XR chest 1V portable DATE OF EXAM: 07/27/2024 5:29 AM COMPARISON: Chest radiograph from one day prior. CLINICAL INDICATION: Male, 78 years old with history of Tube placement; TECHNIQUE: XR chest 1V portable Frontal view of the chest. FINDINGS: Lungs/Pleura: There is no evidence of pleural effusion, focal consolidation, or pneumothorax. Pulmonary vascularity: Pulmonary vascular congestion. Heart/mediastinum: Cardiomediastinal silhouette is enlarged. Musculoskeletal: No acute osseous pathology. There is fixation hardware in the lower cervical spine. Lines/Tubes: Endotracheal tube with distal tip 2.8 cm above the santino. Nasogastric tube with its distal tip and side-port projecting under the diaphragm. Left internal jugular central venous catheter with distal tip at the cavoatrial junction. IMPRESSION: Cardiomegaly, pulmonary vascular congestion and bilateral pleural effusions. Correlate with BNP for c ongestive heart failure. [facility], , 07/27/2024 8:11 AM
--- NOTE | 2024-07-27 10:53 | P.PN ---
Subjective Progress Note Date: 07/27/24 This is a 78-year-old male patient with a history of rheumatoid arthritis, hypertension, BPH. He was recently here in May for atypical chest pain and COVID-19 pneumonitis. Discharged home on May 15, 2024. Since that time he had been doing well. Pain the patient was having a 2 to 3-day history of worsening shortness of breath. He was active yesterday and cleaning out his garage and did complain of shortness of breath and some chest discomfort. He developed worsening shortness of breath throughout the night. EMS was called and the arrival the patient had collapse. He was pulseless and CPR was started taking approximately 5 minutes until return of spontaneous circulation. He was brought in and being assisted with a bag valve mask device and a pulse ox of 74 and then intubated in the emergency department. He was brought up to the intensive care unit. He is currently intubated, sedated on the mechanical ventilator at a rate of 24, tidal volume 450, FiO2 90% and a PEEP of 10. Blood gases had revealed a PaO2 of 70, pCO2 of 62 and a pH of 7.14 on 100% FiO2. He is on fentanyl at 1.5 mcg/kg/h. He is currently on a heparin drip per weight- based protocol. Norepinephrine at 13.5 mcg/min. Propofol at 30 mcg/kg/min. CT scan of the brain revealed no acute findings. CT angiogram revealed no evidence of pulmonary embolism. There is small bilateral effusions. Some patchy a irspace opacity/consolidation throughout both lungs. Mild groundglass opacities. White count 19.7. Hemoglobin 14.6. Platelets 208. Sodium 138. Potassium 4.3. Bicarb 13. BUN 18. Creatinine 1.13. Glucose 313. Troponin 0.588. proBNP 2770. TSH 7.36. Viral screen is negative. The patient is seen today July 12, 2024 in follow-up in the intensive care unit. He remains intubated sedated on the mechanical ventilator. Currently in assist-control mode with a rate of 30, tidal volume 450, FiO2 40% and a PEEP of 10. Morning blood gases revealed a PaO2 of 163, pCO2 of 26 and a pH of 7.49 and 50% FiO2. The PEEP will be decreased to 5. He is currently on cefazolin. Remains on bronchodilators. He is continued on a heparin drip per weight-based protocol. Norepinephrine at 0.03 mcg/kg/min. Propofol at 35 mcg/kg/min. Fentanyl drip at 1.25 mcg/kg/h. White count 9.6. Hemoglobin 11.4. Platelets 166. Sodium 136. Potassium 3.9. Bicarb 18. BUN 29. Creatinine 1.47. Glucose 114. Continue tube feedings of vital AF at a rate of 10 with a goal of 57. Will be on hold for cardiac catheterization today 07/13/2024, the patient is being seen for a follow-up. The patient remains intubated on the mechanical ventilator. He requires mechanical support for his cardiogenic shock postcardiac arrest and the patient is an Impella with a P7 support and a 3.1 L/min of augmentation. The patient remains on sedatives and the patient is currently on propofol the patient is 0.7. On the mechanical ventilator at a rate of 30, tidal volume of 450, FiO2 40% with PEEP of 5. Blood gas showed pH of 7.46 with a pCO2 of 27 and pO2 of 97. Chest x-ray shows cardiomegaly without any acute abnormalities. Orotracheal tubes are in good perfusion. The patient is currently on KVO IV fluids. The patient is on no pressors and the patient was taken off norepinephrine and is producing adequate amount of urine output in the order of 50 cc an hour. He remains on IV heparin. Creatinine is improved and the patient's creatinine peaked at 1.47 and currently is down to 1.08. He has a left subclavian triple-lumen catheter in place. Health Science Specialist on the case and the patient underwent a cardiac catheterization on 07/12/2024 and the patient was found to have extremely calcified right and left coronary system with evidence of triple-vessel coronary artery disease and severely elevated left ventricular end-diastolic pressure. The white cell count at 7.9 with a hemoglobin 10.8 and a platelet count of 123. Sodium levels at 135, bicarbonate 18, BUN 27 with a creatinine of 1.08. LDH level is at 984. The echocardiogram was completed and the patient was found to have severe impairment of the LV function with an ejection fraction of 25 to 30%. There is also severe cardiomyopathy with wall motion abnormalities involving the apical area that was quite hypokinetic. The patient remains on aspirin. The patient remains on statins and the patient is currently on Lipitor 40 mg p.o. daily. Remains on IV heparin. He is also on vital AF for enteral feeding and nutritional support. Health Science Specialist on the case. Cardiothoracic surgery was also involved in his care. The patient was deemed a high surgical risk for coronary intervention and bypass. On 07/14/2024, the patient is being seen for a follow-up. The patient remains sedated and the patient is currently on a combination of propofol running at 40 mcg/kg/min and fentanyl at 0.75 mcg/kg/h. The patient remains well sedated on mechanical ventilator and Impella for mechanical support for cardiogenic shock. This morning, the patient's Impella has been switched to P4 support with an augmentation of 2.5 L/min. The patient remains off pressors. Is producing adequate amount of urine output. Fluid balance is +1 L over the past 24 hours. He is hemolyzing and the hemoglobin is currently down to 9.9. Most recent LDH is at 946. At the same time, the patient remains on the mechanical ventilator. He is on assist-control mode with rate of 18, tidal volume of 450, FiO2 40% with a PEEP of 5. The blood gas from today shows a pH of 7.33 with a pCO2 of 41 and pO2 of 97. Chest x-ray is consistent with CHF/increased incisional markings consistent with heart failure. Orotracheal tube is in a good location. The patient has diffuse interstitial pattern bilaterally along with cardiomegaly and he has developed some small bilateral pleural effusions worse on the left. He remains on IV heparin. Remains on enteral feeding for additional support and the patient is currently on vital AF at rate of 35 cc an hour. IV fluids are currently at KVO. The patient's cardiac rhythm is sinus. The white cell count is 6.7 with a hemoglobin 9.9 and a platelet count of 106. The BUN is 17 with a creatinine of 0.8 and a sodium levels at 137, bicarb is at 22. 07/15/2024, the patient is being seen for a follow-up. The patient has signs of anoxic encephalopathy. The patient was given sedation holiday yesterday and he did not demonstrate adequate neurologic recovery. It was noted that he was not moving his right side effectively compared to the left. Based on that, the patient was placed back on propofol which is currently running at 40 mcg/kg/min. Attempts to wean off his Impella failed yesterday the patient became hypoten sive. The patient was given IV fluids and norepinephrine and the patient is currently off norepinephrine. He has Impella is augmenting at P4 level with 2.5 L/min augmentation. Fluid balance is +600 cc over the past 24 hours and the patient is producing urine output in the order of 30 to 40 cc an hour. No diuretics for now. Chest x-ray still showing CHF and bilateral pleural effusion right more than left. Remains on mechanical ventilator, assist-control mode with rate of 16, tidal volume of 450, FiO2 40% with a PEEP of 5. pH is 7.34 with a pCO2 of 43 and pO2 of 86. He is doing abdominal breathing and based on that, the patient was switched to pressure control mode of mechanical ventil ation. He is on vital AF at a rate of 35 cc an hour. The white cell count is 7.4, hemoglobin 9.6, his platelet count is at 116. LDH level is 625. Electrolytes are all within normal limits with a BUN of 14 and a creatinine of 0.7. Noted the patient's platelet count has dropped during this current admission and the patient remains on IV heparin. A limited echocardiogram was done yesterday and the patient was found to have impaired LV function with an estimated ejection fraction of around 40%. The patient also had segmental wall motion abnormalities. There was moderate LV dysfunction based on the echocardiogram. 07/16/2024, the patient is being seen for a follow-up. Events from yesterday was noted. Following a failed sedation holiday, the patient was noted to have some right-sided weakness. Based on that, a CAT scan of the brain was done and it showed a low-attenuation area in the left parietal lobe suspecting an evolving stroke. Another sedation holiday will be given today. Meanwhile, the patient will be kept on Impella pending cardiac catheterization and coronary interven tion as planned by cardiology. The patient is currently on a pressure control mode of mechanical ventilation, at rate of 18, pressure control of 20, FiO2 of 40% with a PEEP of 5. Blood gas showed a pH of 7.34 with pCO2 49 and pO2 of 92. Remains on IV heparin. He had some episodic hematuria but subsided. Fluid balance is -687 cc over the past 24 hours. Patient was receiving enteral feeding for nutritional support and currently it is on hold in preparation for cardiac catheterization. He was receiving vital AF at rate of 35 cc an hour. IV fluids are currently at KVO. The patient remains on IV Lasix. Meanwhile, the white cell count is 5.9, hemoglobin is 8.9 and a platelet count is 20. The patient's BUN is 15 with a creatinine of 0.7. Serum bicarb is at 28. Sodium levels at 137 and a potassium level is at 4.2. The patient remains on Impella with P4 support and 2.5 liters per minute of cardiac augmentation. The renal function remains stable with a BUN of 15 and a creatinine of 0.7. The LDH level is 511. Chest x-ray findings from today shows CHF, findings are essentially s table. He is afebrile. 07/17/2024, patient is being seen for a follow-up. The patient underwent a cardiac catheterization yesterday and the patient underwent successful stenting of the proximal and mid LAD. Following that, the Impella was discontinued and the patient was brought back to the intensive care unit. This morning, the patient remains sedated on propofol which is running at 25 mcg/kg/min and fentanyl at 0.5 mcg/kg/h. He remains on assist-control mode of mechanical ventilation. Pressure control cycled, with a pressure control of 20, rate of 16, FiO2 40% with a PEEP of 5. Blood gas showed a pH of 7.4 with a pCO2 40 and pO2 112. Chest x-ray shows cardiomegaly with bilateral pleural effusions and orotracheal tube is in good location. Fluid balance is plus a 1.5 L over the past 24 hours. Patient is on enteral feeding for nutritional support. A repeat CAT scan of the brain and C-spine was done yesterday and the CAT scan showed no acute intracranial process. Chronic appearing periventricular white matter ischemic changes were seen and there were less pronounced on the follow-up CAT scan. The white cell count of 5.5, hemoglobin is 8.7, platelet count is 97, BUN is at 16 with a creatinine of 0.7, bicarb is 23 and sodium levels at 135. LFTs are within normal limits. Afebrile. Hemodynamically stable on no pressors. Off the nitroglycerin drip for now. Cardiac rhythm is sinus bradycardia in the mid 50s. 07/18/2024, the patient was extubated and the patient was awake and alert and communicating. Earlier this morning, the patient was on oxygen at 2 L/min nasal cannula and chest x-ray was still showing CHF and bilateral pleural effusion and pulm vessel congestion. He was hemodynamically stable. He was off pressors. He had no complaints. As such, the patient was started on Entresto 24/25 1 tablet a day and the patient was kept on a combination of aspirin and Brilinta. The patient was also receiving Lasix 20 mg IV every 12 hours. The fluid balance is -2 L over the past 24 hours. On neurologic exam, the patient was unable to move his right upper extremity and there is an obvious right lower extremity weakness consistent with an acute CVA. Motor function on the left side was adequate at this point. Following our rounds, the patient became acutely short of breath and he became tachypneic and severe respiratory distress. He was placed on a BiPAP and the blood gas showed severe respiratory acidosis and a chest x-ray was consistent with acute pulmonary edema. Based on that, I had to intubate the patient and I placed him on the mechanical ventilator. Initial blood gases post mechanical ventilation showed a pH of 7.17 with a pCO2 of 66 and pO2 of 151 and based on that, increase the tidal volume to 450, increase the rate up to 28 and dropped FiO2 down to 80%. He remained hemodynamically stable. Slightly hypertensive. BUN is 19 with a creatinine of 0.7. Sodium levels at 139. WBC count 6.4 with a hemoglobin 8.7 and a platelet count of 107. Post intubation chest x-ray was consistent with pulmonary edema. ET tube noted to be pushed in by another 2 cm. He is currently on propofol which is running at 40 mcg/kg/min, calm and comfortable. On 07/19/2024, the patient is being seen for a follow-up. The patient remains intubated on the mechanical ventilator earlier this morning the patient was on propofol running at 50 mcg/kg/min. He failed extubation due to an acute pulmonary edema and the patient had to be reintubated. His current cardiac rhythm is sinus bradycardia. He also has conduction delay and widened QRS prob ably a bundle branch block pattern. This was present since his admission. He was having few episodes of bradycardia and based on that the beta-blockers were placed on hold. He is still on IV Lasix 20 mg every 12 hours. Fluid balance is -2 L over the past 24 hours. He is on assist-control mode with rate of 28, tidal volume of 450, FiO2 of 60% with a PEEP of 5. Blood gas showed pH of 7.51 with a pCO2 of 33 and pO2 of 120. Chest x-ray still showing pulmonary edema. The patient was started on Entresto. He was started also on enteral feeding for nutritional support and the patient is on vital AF. Afebrile. No other significant issues overnight. Cardiology remains on the case. Remains on aspirin and Brilinta. 07/20/2024, remains in the ICU, intubated and mechanically ventilated, patient is on assist-control rate of 22 tidal volume 450 FiO2 40% and PEEP of 5 ABG showed a pO2 of 82 pCO2 35 pH of 7.50 FiO2 was cut down to 20. Increase flow rate to 60 L/min. Patient is on amiodarone at 0.5 mg/min IV fluid is running at 75 cc/h patient is scheduled to undergo repeat cardiac catheterization today. His last ejection fraction on echocardiogram was 15 to 20%. Patient failed wean ing at 1 point as he developed pulmonary edema shortly after he was extubated. Patient also had a previous stent of the LAD on his initial admission he had an Impella device placed and has been removed patient continues to have right-sided weakness. Intermittently the patient is in atrial fibrillation continues on amiodarone. Again he scheduled to have cardiac catheterization today. Chest x-ray continues to show evidence of pulmonary edema. WBC count is 10.5 hemoglobin is 9.6 basic metabolic profile is normal and renal profile is normal. 07/21/2024, remains in the ICU, intubated mechanically ventilated, patient underwent multiple stents to RCA and obtuse marginal 1 and he was found to have patent stent in LAD patient is on assist-control rate of 20 tidal volume 450 FiO2 40% and PEEP of 5 ABG showed a pO2 of 86 pCO2 38 pH of 7.46. Patient remains on amiodarone at 0.5 mg/min propofol 30 mg/kg/min norepinephrine is presently on hold, remains on Lasix 20 mg IV push twice daily, patient is scheduled to have CRISTINE and possible cardioversion today. Antibiotics grullon he received cefepime considering a chest x-ray continues show bibasilar infiltrates, I recommended that we start the patient on Zosyn. And will check procalcitonin. Discussed today his condition with cardiology again planning CRISTINE and cardioversion WBC count is 12.1 hemoglobin 9.5.Basic metabolic profile is normal renal profile is normal 07/22/2024, remains in the ICU, intubated and mechanically ventilated. Patient remains on assist-control rate of 20 tidal volume 450 FiO2 40% and PEEP of 5 ABG showed a pO2 of 85 pCO2 4 0 pH of 7.43, chest x-ray continues to show evidence of bilateral interstitial infiltrates/edema patient did receive Lasix and he remains on Lasix 20 mg IV push every 12 hours with marginal urine output. His procalcitonin was normal patient remains empirically on Zosyn. Chest x-ray was reviewed patient was on propofol at 5 mcg/kg/min, and I recommended stopping propofol, patient was given a short weaning trial for about half an hour on pressure support of 14 and CPAP, patient did not seem to do well with the pressure support, he became quite tachypneic, tachycardic, and he had lots of secretions coming out of the endotracheal tube. Hence no further weaning was attempted, patient be placed back on AC mode of mechanical ventilation, and he is not quite ready to wean. WBC count today is 9.6 hemoglobin 8.8 PTT is 52, basic metabolic profile is normal BUN is 32 creatinine 1.15 07/23/2024, patient remains in the ICU, intubated and mechanically ventilated, on assist-control rate 20 tidal volume 450 FiO2 40% PEEP of 5 ABG showed a pO2 of 95 pCO2 40 pH of 7.43 chest x-ray is showing interstitial edema/infiltrates. Patient is on propofol at 25 IV fluid at KVO Lasix was given earlier 20 mg IV push was given x 1 patient remains on Zosyn empirically remains on Eliquis for his cardiac arrhythmia. Continues to have secretions but the secretions are clear. Less today compared to yesterday, hence the patient may be given a weaning trial on pressure support and CPAPWBC count is 9.6 hemoglobin 8.9 electrolytes are normal renal profile showed a BUN of 40 creatinine 1.29 sligh tly worse compared to yesterday's creatinine of 1.15. 07/24/2024, remains in the ICU, he is on 4 L nasal cannula, extubated yesterday, tolerated the extubation well. Patient has a relatively strong cough, remains on diuretics, remains on Zosyn, remains on Eliquis. He is on 4 L nasal cannula, does not seem to be in any distress, however is a bit slow. Patient is in sinus rhythm, hemodynamically stable, no evidence of any ectopy or recurrent atrial fibrillation. Denies any chest discomfort. Lasix was increased to 20 mg IV push every 12 hours, chest x-ray is showing slight worsening of his interstitial edema, underlying pneumonia is not entirely ruled out, patient is receiving Zosyn, procalcitonin level was normal. In addition to Lasix, patient is also on Aldactone 25 mg daily he is also on metoprolol, Brilinta, Entresto, and Lipitor as well as aspirin and amiodarone 07/25/2024, patient remains in the ICU, as [id number] last night the patient took a downhill course, he developed what seems to be a picture of pulmonary edema, patient did not do well with BiPAP, continued to desaturate, he was quite tachypneic, I was notified about this patient around 10:30 PM, patient was in respiratory distress, I recommended immediate intubation and mechanical ventilation. Patient was reintubated last night around 1045, he is now on assist-control rate of 22 tidal volume 500 FiO2 down to 45% he was on 100% earlier PEEP of 5 and flow rate is 65 L/min. Patient is prop on propofol but not on norepinephrine, blood pressure is marginal. Patient did receive Lasix 40 mg IV push every 8 hours remains on Eliquis remains on Zosyn for presumptive aspiration pneumonia. His ABG earlier today showed a pO2 of 273 pCO2 37 pH of 7.43. ABG right after intubation showed a pO2 of 73 pCO2 of 60 pH of 7.23 the patient is down to 45%, PEEP is at 5, and he is on rate of 22 with tidal volume 500. WBC count today is 16.8 hemoglobin is 10, basic metabolic profile is normal BUN is 31 creatinine 1.19Current BNP level is 5760 with normal procalcitonin level of 0.22 chest x-ray is showing improving pulmonary edema chest x-ray this morning is better than the chest x-ray he had at the time of in tubation On 07/26/2024, patient is basically about the same intubated and mechanically ventilated, he is on assist-control rate of 22 tidal volume 500 FiO2 50% and PEEP of 5 ABG showed a pO2 of 121 pCO2 29 pH of 7.54 hence his rate was cut down to 18 and his FiO2 cut down to 40%. Patient is on propofol at 50 mcg/kg/min he is also on norepinephrine at 0.08 mcg/kg/min IV fluids at KVO, remains on Lasix 40 mg IV push every 8 hours. Patient is also on Eliquis. His sister who is also his power of software controls engineer/legal guardian, requested DNR CODE STATUS. Patient is not arousable at this point since he is on propofol, but I plan to discontinue propofol, awaken the patient, and give the patient a weaning trial, I have explained to the sister his condition, and she is agreeable to proceed with trials of weaning, however if the patient is extubated and needed to be reintubated, not to reintubate and go to comfort care measures at this point. Patient will definitely be given weaning trials hopefully today once he is awake and appropriate. Chest x-ray is showing improvement in his pulmonary edema nonetheless it is not completely resolved. WBC count today is 11.1 hemoglobin is 10.1. Potassium is low at 2.8 being addressed accordingly his BUN is 28 creatinine 1.17. On 07/27/2024, he is intubated and mechanically ventilated, he is on assist- control rate of 18 tidal volume 500 FiO2 40% and PEEP of 5 ABG showed a pO2 of 82 pCO2 37 pH of 7.51. Patient was on d/c propofol and norepinephrine, IV fluids at NS at 20 mls/hr, remains on Lasix 40 mg IV push every 8 hours. Patient is also on Eliquis. He is DNR CODE STATUS. Will give the patient a weaning trial with parameters of Vt357, RR 21, MV 7.81, RSBI 56, VC 1035, NIF-15 with positive cuff leak. It was previously discussed if the patient is extubated and needed to be reintubated, not to reintubate and go to comfort care measures at this point. Chest x-ray is showing improvement in his pulmonary edema nonetheless it is not completely resolved. WBC count today is 8.4 has improved, and hemoglobin is 9.0 has decreased. Potassium is low at 3.6, his BUN is 28 creatinine 1.23. Objective - Vital Signs Vital signs: Vital Signs Temp 99.5 F 07/27/24 08:00 Pulse 52 L 07/27/24 09:45 Resp 33 H 07/27/24 09:45 BP 129/57 07/27/24 09:45 Pulse Ox 97 07/27/24 09:45 FiO2 40 07/27/24 10:06 Intake & Output 07/26/24 07/27/24 07/27/24 18:59 06:59 18:59 Intake Total 963.136 750.679 170.000 Output Total 1005 1905 550 Balance -41.864 -1154.321 -380.000 Weight 106.2 kg Intake: IV 340 240 50 0.9 KVO @ 20 240 240 50 Piperacillin-Tazobactam 3 100 .375 gm In Sodium Chloride 0.9% 100 ml @ 25 mls/hr IVPB Q8H [facility] Rx#: [id number] Intake, IV Titration 463.136 230.679 100.000 Amount Dexmedetomidine/0.9% NaCl 47.434 36.526 100.000 (Pmx) 400 mcg In Empty Bag 1 bag @ 0.2 MCG/KG/HR 5.3 mls/hr IV .[id number] [facility] Rx#:[id number] Norepinephrine 4 mg In 254.000 194.153 Sodium Chloride 0.9% 250 ml @ 0.03 MCG/KG/MIN 12. 459 mls/hr IV .[id number] [facility] Rx#:[id number] propofoL 1,000 mg In 161.702 Empty Bag 1 bag @ 15 MCG/ KG/MIN 9.81 mls/hr IV . [id number] [facility] Rx#:[id number] Tube Feeding 100 220 20 Other 60 60 Output: Urine 1005 1905 550 Other: Voiding Method Indwelling Catheter Indwelling Catheter ABP, PAP, CO, CI - Last Documented Arterial Blood Pressure 125/33 - Exam GENERAL EXAM: Revealed a 78-year-old male on mechanical ventilation HEAD: Normocephalic. Atraumatic, endotracheal tube and orogastric tube are intact. EYES: Normal reaction of pupils, equal size. NOSE: Clear with pink turbinates. THROAT: Dry mucous membranes NECK: No masses, no JVD. CHEST: No chest wall deformity. Symmetrical expansion minimal crackles at the b ases CVS: Distant S1 and S2 normal with no audible murmur, regular rhythm. ABDOMEN: No hepatosplenomegaly, normal bowel sounds, no guarding or rigidity. SKIN: No rashes CENTRAL NERVOUS SYSTEM: intubated, responds appropriately with nodding Psychiatric: Could not assess EXTREMITIES: No clubbing, trace of bipedal edema, no cyanosis. Good pulses bilaterally - Labs CBC & Chem 7: 07/27/24 04:23 07/27/24 04:23 Labs: Abnormal Lab Results - Last 24 Hours (Table) 07/26/24 07/26/24 07/26/24 Range/Units 11:32 12:18 17:56 Hgb (13.0-17.5) gm/dL Hct (39.0-53.0) % MCV (80.0-100.0) fL MCH (25.0-35.0) pg MCHC (31.0-37.0) g/dL RDW (11.5-15.5) % ABG pH (7.35-7.45) ABG pO2 (83-108) mmHg ABG HCO3 28 H (21-25) mmol/L ABG Total CO2 30 H (19-24) mmol/L Hemoglobin 10.2 L (13.0-17.5) gm/dL Chloride (98-107) mmol/L BUN (9-20) mg/dL Glucose (74-99) mg/dL POC Glucose (mg/dL) 135 H 127 H (70-110) mg/dL Calcium (8.4-10.2) mg/dL Total Protein (6.3-8.2) g/dL Albumin (3.5-5.0) g/dL 07/26/24 07/27/24 07/27/24 Range/Units 23:19 04:23 04:23 Hgb 9.0 L (13.0-17.5) gm/dL Hct 30.0 L (39.0-53.0) % MCV 66.6 L (80.0-100.0) fL MCH 20.1 L (25.0-35.0) pg MCHC 30.2 L (31.0-37.0) g/dL RDW 16.2 H (11.5-15.5) % ABG pH (7.35-7.45) ABG pO2 (83-108) mmHg ABG HCO3 (21-25) mmol/L ABG Total CO2 (19-24) mmol/L Hemoglobin (13.0-17.5) gm/dL Chloride 111 H (98-107) mmol/L BUN 28 H (9-20) mg/dL Glucose 135 H (74-99) mg/dL POC Glucose (mg/dL) 139 H (70-110) mg/dL Calcium 8.1 L (8.4-10.2) mg/dL Total Protein 6.2 L (6.3-8.2) g/dL Albumin 2.9 L (3.5-5.0) g/dL 07/27/24 07/27/24 Range/Units 05:34 05:38 Hgb (13.0-17.5) gm/dL Hct (39.0-53.0) % MCV (80.0-100.0) fL MCH (25.0-35.0) pg MCHC (31.0-37.0) g/dL RDW (11.5-15.5) % ABG pH 7.51 H (7.35-7.45) ABG pO2 82 L (83-108) mmHg ABG HCO3 29 H (21-25) mmol/L ABG Total CO2 30 H (19-24) mmol/L Hemoglobin 9.1 L (13.0-17.5) gm/dL Chloride (98-107) mmol/L BUN (9-20) mg/dL Glucose (74-99) mg/dL POC Glucose (mg/dL) 126 H (70-110) mg/dL Calcium (8.4-10.2) mg/dL Total Protein (6.3-8.2) g/dL Albumin (3.5-5.0) g/dL Microbiology - Last 24 Hours (Table) 07/25/24 04:37 Gram Stain - Final Sputum Sputum Culture - Final 07/25/24 10:00 Blood Culture - Preliminary Blood Assessment and Plan Plan: Status post cardiac arrest, [id number] CPR, downtime about 5 minutes. Acute hypoxic respiratory failure secondary to above. Patient has developed extensive pulmonary edema secondary to LV dysfunction secondary to ischemic cardiomyopathy. Pulmonary edema with bilateral pleural effusions Acute non-ST segment elevation myocardial infarction, status post cardiac catheterization indicating triple-vessel coronary artery disease, status post cardiac catheterization and stenting x 2 of the mid and proximal LAD and the patient is currently on a combination of aspirin and Brilinta and the Impella has been discontinued Cardiogenic shock, required Impella device, for a brief period of time Acute CVA with motor weakness in the right side, right upper extremity more than right lower extremity. Acute kidney injury, recovered and the patient is producing adequate amount of urine output Recent discharge in May 2024 for atypical chest pain and COVID-19 infection/pneumonitis Rheumatoid arthritis Hypertension Benign prostatic hyperplasia Thrombocytopenia, improving Chronic anemia Reintubation on 07/16/2024 mostly because of worsening pulmonary edema, patient pulled out his own endotracheal tube at that time Reintubation on 07/24/2024 Recommendation: Discussed and updated his sister at bedside about his condition, she requested DNR CODE STATUS and made aware that we will try to give him a weaning trial today, if extubated the patient is not to be reintubated. Patient was extubated on 07/23/2024, tolerated the extubation well until late in the day 07/24/2024, patient had to be reintubated with worsening pulmonary edema Continue diuretics and antibiotics Lasix is now at 40 mg IV push every 8 hours Continue dual antiplatelet treatment Continue anticoagulation continue nutritional support/enteral feeding Continue Entresto, continue Brilinta, continue Eliquis, continue beta-blockers and amiodarone 200 mg daily. Patient is also on aspirin Discontinued Propofol, and Zosyn Weaning parameters assessed, will proceed with extubating and transition to Bipap 15/5/40% Continue to monitor I's and O's and daily labs. Daily x-rays of the chest patient remains critically ill Critical care time is over 30, not including time spent on procedures Previously discussed condition with his sister at bedside Will continue to follow
[2024-07-27 13:28] LABS: Glucose,Whole Blood 117 mg/dL (70-110)
--- NOTE | 2024-07-27 16:43 | P.PN ---
Subjective PROGRESS NOTE The patient is a 78-year-old male who was admitted to the hospital on July 11 with cardiac arrest, severe cardiomyopathy and severe triple-vessel disease. He was evaluated by Dr. Abrams, underwent an Impella placement. His echocardiogram on presentation showed an ejection fraction 25 to 30% with anterior apical hypokinesis. On July 16 he underwent stenting of the LAD with removal of the Impella CP. He remains intubated, sedated. He is having episodes of paroxysmal atrial fibrillation with sinus bradycardia at times. He has good urine output. He is scheduled to undergo PCI of the RCA and the left circumflex today. He is on no vasopressors. He was found to have right-sided weakness suggestive of a cerebrovascular accident. Repeat echocardiogram on July 14 showed an ejection fraction of 40% while he was on the Impella. He was extubated but had to be reintubated because of respiratory distress. He has no evidence of ventricular ectopic activity. July 21: The patient remains intubated and sedated, in atrial fibrillation. He had episodes of recurrent rapid ventricle response. He is on beta-blockers, well- tolerated. He continues to be on IV amiodarone. He underwent stenting of the left circumflex and RCA yesterday. He is on no vasopressors. His urinary output is good. There is no evidence of ventricular tachycardia. July 22: The patient remains intubated he is more awake. He underwent CRISTINE guided cardioversion yesterday with church of sinus mechanism. He continues to be in sinus mechanism today, his CRISTINE showed an ejection fraction of 35 to 40% with no reported segmental wall motion abnormality. His urinary output is stable. He is on no vasopressors. He has no evidence of ventricular ectopic activity. He continues to be on IV heparin and IV amiodarone. He is following commands. July 23: The patient remains intubated, attempt to wean yesterday were unsuccessful. He continues to be in sinus mechanism with sinus bradycardia but no pauses. He is sedated at this time. His urinary output has been stable. He had no evidence of ventricular ectopic activity. He has been started on oral amiodarone and on Eliquis. July 24: The patient is extubated, alert and oriented. Complaining of dryness in his eyes. He continues to be in sinus mechanism. He has no evidence of ventricular ectopic activity or recurrent atrial fibrillation. He denies any chest disc omfort or significant dyspnea. He denies any dizziness or palpitations. July 25: The patient had worsening respiratory status yesterday night with progressive dyspnea and hypoxemia requiring BiPAP initially and subsequently intubated because of evidence of acute pulmonary edema. He continues to be in sinus mechanism on no vasopressors. His urinary output has been stable. He is on IV Lasix. There is no evidence of recurrent atrial fibrillation or evidence of ventricular tachyarrhythmia. July 26: The patient remains intubated, he is back in sinus mechanism. His urinary output is stable. He is on a low-dose of norepinephrine. He has no ventricular ectopic activity. He had sinus bradycardia earlier yesterday prior to converting to atrial fibrillation, he is in sinus bradycardia at this time. 07/27 Patient seen and examined. Patient is maintained on IV Lasix 40 mg IV 3 times a day. Creatinine stable at 1.2. Good urine output. Denies any chest pain or pressure. He was extubated was on BiPAP however currently tolerating nasal cannula. He is bradycardic with heart rates in the 40s however is also maintained on Precedex. PHYSICAL EXAMINATION: Blood pressure 140/40 heart rate 58, intubated and sedated LUNGS: Clear to auscultation HEART: Regular rate and rhythm, S1, S2. No S3. Systolic ejection murmur ABDOMEN: Soft, obese, no organomegaly EXTREMETIES: Trace to 1+ edema, LAB: Hemoglobin 10.1, platelets count 548, potassium 4.3, BUN 28, creatinine 1.17. IMPRESSION: 1. Cardiac arrest with severe cardiomyopathy and cardiogenic shock status post Impella 2. Severe triple-vessel disease, status post stenting of the LAD and stenting of the left circumflex and RCA on July 20 3. Paroxysmal atrial fibrillation alternating with sinus bradycardia, back in s inus bradycardia at this time, post cardioversion 4. Evidence suggests right sided weakness related to a cerebrovascular accident 5. Respiratory failure with reintubation,, patient had to be reintubated because flash pulmonary edema 6. Acute renal injury, resolved 7. History of hypertension 8. Bradycardia, asymptomatic PLAN: patient currently extubated and appears to be improving. Creatinine stable. Continue current heart failure regimen. Increase as able. Bradycardia likely exacerbated by Precedex and attempt to wean as able however currently appears to be tolerating. prognosis guarded. Objective - Vital Signs Vital signs: Vital Signs Temp 99.0 F 07/27/24 12:00 Pulse 45 L 07/27/24 15:00 Resp 19 07/27/24 15:00 BP 130/52 07/27/24 15:00 Pulse Ox 97 07/27/24 15:00 FiO2 40 07/27/24 15:40 Intake & Output 07/26/24 07/27/24 07/27/24 18:59 06:59 18:59 Intake Total 963.136 750.679 220.000 Output Total 1005 1905 975 Balance -41.864 -1154.321 -755.000 Weight 106.2 kg 106.2 kg Intake: IV 340 240 100 0.9 KVO @ 20 240 240 100 Piperacillin-Tazobactam 3 100 .375 gm In Sodium Chloride 0.9% 100 ml @ 25 mls/hr IVPB Q8H [facility] Rx#: [id number] Intake, IV Titration 463.136 230.679 100.000 Amount Dexmedetomidine/0.9% NaCl 47.434 36.526 100.000 (Pmx) 400 mcg In Empty Bag 1 bag @ 0.2 MCG/KG/HR 5.3 mls/hr IV .[id number] [facility] Rx#:[id number] Norepinephrine 4 mg In 254.000 194.153 Sodium Chloride 0.9% 250 ml @ 0.03 MCG/KG/MIN 12. 459 mls/hr IV .[id number] [facility] Rx#:[id number] propofoL 1,000 mg In 161.702 Empty Bag 1 bag @ 15 MCG/ KG/MIN 9.81 mls/hr IV . [id number] [facility] Rx#:[id number] Tube Feeding 100 220 20 Other 60 60 Output: Urine 1005 1905 975 Other: Voiding Method Indwelling Catheter Indwelling Catheter Indwelling Catheter ABP, PAP, CO, CI - Last Documented Arterial Blood Pressure 130/34 - Labs CBC & Chem 7: 07/27/24 04:23 07/27/24 04:23 Labs: Abnormal Lab Results - Last 24 Hours (Table) 07/26/24 07/26/24 07/27/24 Range/Units 17:56 23:19 04:23 Hgb 9.0 L (13.0-17.5) gm/dL Hct 30.0 L (39.0-53.0) % MCV 66.6 L (80.0-100.0) fL MCH 20.1 L (25.0-35.0) pg MCHC 30.2 L (31.0-37.0) g/dL RDW 16.2 H (11.5-15.5) % ABG pH (7.35-7.45) ABG pO2 (83-108) mmHg ABG HCO3 (21-25) mmol/L ABG Total CO2 (19-24) mmol/L Hemoglobin (13.0-17.5) gm/dL Chloride (98-107) mmol/L BUN (9-20) mg/dL Glucose (74-99) mg/dL POC Glucose (mg/dL) 127 H 139 H (70-110) mg/dL Calcium (8.4-10.2) mg/dL Total Protein (6.3-8.2) g/dL Albumin (3.5-5.0) g/dL 07/27/24 07/27/24 07/27/24 Range/Units 04:23 05:34 05:38 Hgb (13.0-17.5) gm/dL Hct (39.0-53.0) % MCV (80.0-100.0) fL MCH (25.0-35.0) pg MCHC (31.0-37.0) g/dL RDW (11.5-15.5) % ABG pH 7.51 H (7.35-7.45) ABG pO2 82 L (83-108) mmHg ABG HCO3 29 H (21-25) mmol/L ABG Total CO2 30 H (19-24) mmol/L Hemoglobin 9.1 L (13.0-17.5) gm/dL Chloride 111 H (98-107) mmol/L BUN 28 H (9-20) mg/dL Glucose 135 H (74-99) mg/dL POC Glucose (mg/dL) 126 H (70-110) mg/dL Calcium 8.1 L (8.4-10.2) mg/dL Total Protein 6.2 L (6.3-8.2) g/dL Albumin 2.9 L (3.5-5.0) g/dL 07/27/24 Range/Units 13:27 Hgb (13.0-17.5) gm/dL Hct (39.0-53.0) % MCV (80.0-100.0) fL MCH (25.0-35.0) pg MCHC (31.0-37.0) g/dL RDW (11.5-15.5) % ABG pH (7.35-7.45) ABG pO2 (83-108) mmHg ABG HCO3 (21-25) mmol/L ABG Total CO2 (19-24) mmol/L Hemoglobin (13.0-17.5) gm/dL Chloride (98-107) mmol/L BUN (9-20) mg/dL Glucose (74-99) mg/dL POC Glucose (mg/dL) 117 H (70-110) mg/dL Calcium (8.4-10.2) mg/dL Total Protein (6.3-8.2) g/dL Albumin (3.5-5.0) g/dL Microbiology - Last 24 Hours (Table) 07/25/24 04:37 Gram Stain - Final Sputum Sputum Culture - Final 07/25/24 10:00 Blood Culture - Preliminary Blood
--- NOTE | 2024-07-27 17:29 | P.PN ---
Subjective Progress Note Date: 07/27/24 78-year-old male with PMH of rheumatoid arthritis, hypertension and BPH was brought to the emergency department via EMS for cardiopulmonary arrest. Recently admitted from 05/13-05/15 for type II NM slightly with elevated troponins likely secondary to COVID-19 pneumonitis, Echo at that time showed LVEF of 55% and moderate pulmonary hypertension. His initial laboratory evaluation shows WBC of 19.7, RBC 6.95, MCV 74.8, APTT 39.7, bicarb 13, glu 313. Mag 2.6. BNP 2770. Trop 0.588 up to 21.1. Lactic acid 3.2. TSH 7.63, FT4 0.8. Procal 2.82. ABG pH 7.01, pCO2 91. COVID, RSV, Flu neg. CXR showed diffuse patchy infiltrate with groundglass opacities and bilateral pleural effusion. Brain CT showed no acute intracranial process. Chest CTA is negative for pulmonary embolism and patchy opacities throughout both lungs with small bilateral pleural effusions. EKG showed sinus bradycardia with a RBBB and T wave inversions in anteroseptal and lateral leads. Echocardiogram showed LVEF of 25 to 30% and ischemic car diomyopathy with apical hypokinesis. Intubated and transferred to ICU. Started on heparin drip. Underwent cardiac cath on 07/12 showing extremely calcified right and left coronary system with critical triple-vessel CAD, severely elevated left-sided filling pressure and successful placement of Impella CP in the LV. CT surgery consulted, ultimately would like patient to recover from his acute events to optimize surgical outcome. Noted R hemiparesis with inadequate neurologic recovery from a sedation holiday on 07/15, Neurology consulted, CT brain on 07/15 showed concern for suspected left parietal subacute CVA. CT brain was repeated again on 07/17 which at this time showed no acute intracranial p rocess. Patient underwent successful stenting to mid and proximal LAD on 07/17 with Impella removal. Extubated and re-intubated on 07/18. Underwent successful PCI OM1 of left circumflex and RCA on 07/20. Complicated with A-Fib RVR requiring CRISTINE and cardioversion on 07/21. Extubated on 07/23 and re-intubated for flash pulmonary edema. MRI brain showed acute left periventricular basal ganglion ischemic type changes, punctate ischemic changes of the left frontal and right occipital lobe. 07/27 Patient was seen and examined. Extubated this morning. CBC and CMP significant for Hg 9, Hct 30, MCV 66.6, Cl 111, BUN 28, glu 135, Ca 8.1, alb 2.9. ABG pH 7.51, pCO2 37, 96.8% on FiO2 40. CXR shows improving pulmonary vascular congestion. He is on Precedex at 0.4 mcg/kg/hr. Receiving Lasix 40 mg IV TID. Negative 613.2 cc fluid balance. Currently off Levophed and Propofol. General: NAD Derm: warm, dry Head: atraumatic, normocephalic, symmetric Eyes: EOMI, no lid lag, anicteric sclera Mouth: no lip lesion, mucus membranes moist Cardiovascular: S1S2 reg, no murmur Lungs: Rhonchi bilateral, no accessory muscle use Ext: no gross muscle atrophy, no edema, no contractures Neuro: No obvious FND Psych: AO x 1-2 Based on my assessment of this patient, this patient meets a high complexity level of care. Out of the hospital cardiopulmonary arrest currently ventilator dependent: Pulmonary to attempt weaning trial. If extubated, patient is not to be re- intubated. Pulmonary on board. Empirically treated with Zosyn 3.75g IV TID. NSTEMI status post stents to LAD, OM1 branch of LCx and mid RCA: ASA 81 mg PO QD. Lipitor 40 mg PO QHS. Brilinta 90 mg PO BID. Cardiogenic Shock status post Impella (07/12-07/17) and pressors Acute systolic CHF exacerbation with ejection fraction of 25 to 30%: Lasix 40 mg IV TID. Strict intake and outtake. Daily weights. Monitor renal function while on IV lasix. Farxiga 10 mg PO QD. Metoprolol 25 mg PO BID. Entresto 24-26 mg PO BID. Aldactone 25 mg PO QD. Acute encephalopathy, likely anoxic brain injury with concerns of Subacute left parietal CVA: ASA, Lipitor, Eliquis and Brilinta as above. Paroxysmal A-fib with the RVR, now in sinus rhythm, status post cardioversion: Amiodarone 200 mg PO QD. Eliquis 5 mg PO BID. Hypertension: Metoprolol, Entresto, Aldactone as above. Euthyroid sick syndrome secondary above: Outpatient monitoring. Microcytic anemia: Transfuse if Hg < 7. History of COVID-19 pneumonitis Resolved: Bandemia, AG metabolic acidosis, Lactic acidosis, HyperMag CODE STATUS: NO CODE. DVT Prophylaxis: Eliquis 5 mg PO BID. GI Prophylaxis: Protonix 40 mg IV QD. Designated medical POA if patient is not able to make medical decisions for themselves: Sister I have reviewed the following senior science consultant notes: Pulmonary, Cardiology, Neurology I have reviewed the results of the following tests: As above. I have ordered the following tests: As above. I have discussed the care of this patient with the following independent historian: I have independently interpreted the following test below: CXR I have discussed the management of this patient with the following physician: Objective - Vital Signs Vital signs: Vital Signs Temp 98.4 F 07/27/24 04:15 Pulse 48 L 07/27/24 07:00 Resp 18 07/27/24 07:00 BP 123/59 07/27/24 07:00 Pulse Ox 98 07/27/24 07:00 FiO2 40 07/27/24 07:42 Intake & Output 07/26/24 07/27/24 07/27/24 18:59 06:59 18:59 Intake Total 963.136 750.679 40 Output Total 1005 1905 50 Balance -41.864 -1154.321 -10 Weight 106.2 kg Intake: IV 340 240 20 0.9 KVO @ 20 240 240 20 Piperacillin-Tazobactam 3 100 .375 gm In Sodium Chloride 0.9% 100 ml @ 25 mls/hr IVPB Q8H [facility] Rx#: [id number] Intake, IV Titration 463.136 230.679 Amount Dexmedetomidine/0.9% NaCl 47.434 36.526 (Pmx) 400 mcg In Empty Bag 1 bag @ 0.2 MCG/KG/HR 5.3 mls/hr IV .[id number] [facility] Rx#:[id number] Norepinephrine 4 mg In 254.000 194.153 Sodium Chloride 0.9% 250 ml @ 0.03 MCG/KG/MIN 12. 459 mls/hr IV .[id number] [facility] Rx#:[id number] propofoL 1,000 mg In 161.702 Empty Bag 1 bag @ 15 MCG/ KG/MIN 9.81 mls/hr IV . [id number] [facility] Rx#:[id number] Tube Feeding 100 220 20 Other 60 60 Output: Urine 1005 1905 50 Other: Voiding Method Indwelling Catheter Indwelling Catheter ABP, PAP, CO, CI - Last Documented Arterial Blood Pressure 132/33 - Labs CBC & Chem 7: 07/27/24 04:23 07/27/24 04:23 Labs: Abnormal Lab Results - Last 24 Hours (Table) 07/26/24 07/26/24 07/26/24 Range/Units 11:32 12:18 17:56 Hgb (13.0-17.5) gm/dL Hct (39.0-53.0) % MCV (80.0-100.0) fL MCH (25.0-35.0) pg MCHC (31.0-37.0) g/dL RDW (11.5-15.5) % ABG pH (7.35-7.45) ABG pO2 (83-108) mmHg ABG HCO3 28 H (21-25) mmol/L ABG Total CO2 30 H (19-24) mmol/L Hemoglobin 10.2 L (13.0-17.5) gm/dL Chloride (98-107) mmol/L BUN (9-20) mg/dL Glucose (74-99) mg/dL POC Glucose (mg/dL) 135 H 127 H (70-110) mg/dL Calcium (8.4-10.2) mg/dL Total Protein (6.3-8.2) g/dL Albumin (3.5-5.0) g/dL 07/26/24 07/27/24 07/27/24 Range/Units 23:19 04:23 04:23 Hgb 9.0 L (13.0-17.5) gm/dL Hct 30.0 L (39.0-53.0) % MCV 66.6 L (80.0-100.0) fL MCH 20.1 L (25.0-35.0) pg MCHC 30.2 L (31.0-37.0) g/dL RDW 16.2 H (11.5-15.5) % ABG pH (7.35-7.45) ABG pO2 (83-108) mmHg ABG HCO3 (21-25) mmol/L ABG Total CO2 (19-24) mmol/L Hemoglobin (13.0-17.5) gm/dL Chloride 111 H (98-107) mmol/L BUN 28 H (9-20) mg/dL Glucose 135 H (74-99) mg/dL POC Glucose (mg/dL) 139 H (70-110) mg/dL Calcium 8.1 L (8.4-10.2) mg/dL Total Protein 6.2 L (6.3-8.2) g/dL Albumin 2.9 L (3.5-5.0) g/dL 07/27/24 07/27/24 Range/Units 05:34 05:38 Hgb (13.0-17.5) gm/dL Hct (39.0-53.0) % MCV (80.0-100.0) fL MCH (25.0-35.0) pg MCHC (31.0-37.0) g/dL RDW (11.5-15.5) % ABG pH 7.51 H (7.35-7.45) ABG pO2 82 L (83-108) mmHg ABG HCO3 29 H (21-25) mmol/L ABG Total CO2 30 H (19-24) mmol/L Hemoglobin 9.1 L (13.0-17.5) gm/dL Chloride (98-107) mmol/L BUN (9-20) mg/dL Glucose (74-99) mg/dL POC Glucose (mg/dL) 126 H (70-110) mg/dL Calcium (8.4-10.2) mg/dL Total Protein (6.3-8.2) g/dL Albumin (3.5-5.0) g/dL Microbiology - Last 24 Hours (Table) 07/25/24 10:00 Blood Culture - Preliminary Blood 07/25/24 04:37 Gram Stain - Preliminary Sputum Sputum Culture - Preliminary
[2024-07-27 23:32] LABS: Glucose,Whole Blood 93 mg/dL (70-110)
[2024-07-28] MEDS: DEXTROSE 5% IN WATER 100 ML with AMIODARONE 150 MG IV ONE (01:22)
[2024-07-28 05:03] LABS: Glucose,Whole Blood 87 mg/dL (70-110)
[2024-07-28 07:13] LABS: Anisocytosis Slight; Basophils % (A) 0 %; Eosinophils # (A) 0.3 k/uL (0-0.7); Eosinophils % (A) 3 %; HCT 27.6 % (39.0-53.0); HGB 8.5 gm/dL (13.0-17.5); Hypochromasia Marked; Lymphocytes # (A) 1.4 k/uL (1.0-4.8); Lymphocytes % (A) 17 %; MCH 20.9 pg (25.0-35.0); MCHC 30.8 g/dL (31.0-37.0); MCV 67.9 fL (80.0-100.0); Mean Platelet Volume 8.3; Microcytosis Marked; Monocytes # (A) 0.4 k/uL (0-1.0); Monocytes % (A) 5 %; Neutrophils # (A) 5.9 k/uL (1.3-7.7); Neutrophils % (A) 72 %; Platelet Count 380 k/uL (150-450); RBC 4.06 m/uL (4.30-5.90); RDW 16.4 % (11.5-15.5); WBC 8.1 k/uL (3.8-10.6)
[2024-07-28 07:24] LABS: ALT 25 U/L (4-49); AST 33 U/L (17-59); African American GFR (CKD) 79 (>60 ml/min/1.73 sqM); Albumin 3.2 g/dL (3.5-5.0); Alkaline Phosphatase 67 U/L (38-126); Anion Gap 4 mmol/L; Blood Urea Nitrogen 27 mg/dL (9-20); Carbon Dioxide 34 mmol/L (22-30); Chloride 108 mmol/L (98-107); Glucose 95 mg/dL (74-99); Magnesium 2.1 mg/dL (1.6-2.3); Non-African American GFR(CKD) 69 (>60 ml/min/1.73 sqM); Potassium 3.6 mmol/L (3.5-5.1); Sodium 146 mmol/L (137-145); Total Bilirubin 0.8 mg/dL (0.2-1.3); Total Protein 6.4 g/dL (6.3-8.2)
--- NOTE | 2024-07-28 07:34 | CT ---
EXAMINATION TYPE: CT brain wo con DATE OF EXAM: 07/28/2024 COMPARISON: 07/17/2024 CLINICAL INDICATION: Male, 78 years old with history of New onset diplopia with headache; PHH, New on set diplopia with headache TECHNIQUE: CT scan of the head is performed without contrast. CT DLP: 1095.9 mGycm Automated exposure control for dose reduction was used. FINDINGS: There is no acute intracranial hemorrhage or midline shift identified. There is diffuse v entricular and sulcal prominence consistent with diffuse age-related cerebral atrophy. There is low- attenuation in the periventricular white matter consistent with chronic small vessel ischemic change. The globes are intact and the visualized sinuses are clear. IMPRESSION: No acute intracranial hemorrhage or midline shift. There is diffuse age-related cerebra l atrophy and chronic small vessel ischemic change noted. [facility], , 07/28/2024 7:32 AM
--- NOTE | 2024-07-28 08:36 | XR ---
EXAMINATION TYPE: XR chest 1V portable DATE OF EXAM: 07/28/2024 8:16 AM COMPARISON: Chest radiograph from two days prior. CLINICAL INDICATION: Male, 78 years old with history of pulm edema; PHH TECHNIQUE: XR chest 1V portable Frontal view of the chest. FINDINGS: Lungs/Pleura: There is no evidence of pleural effusion, focal consolidation, or pneumothorax. Pulmonary vascularity: Pulmonary vascular congestion. Heart/mediastinum: Cardiomediastinal silhouette is enlarged. Musculoskeletal: No acute osseous pathology. Other findings: None Lines/Tubes: Interval removal of the endotracheal tube. Interval removal of the enteric tube, Left central venous catheter with distal tip at the cavoatrial junction. IMPRESSION: Cardiomegaly and mild pulmonary vascular congestion. Correlate with BNP for congestive heart failure. [facility], , 07/28/2024 8:33 AM
--- NOTE | 2024-07-28 11:07 | P.PN ---
Subjective Progress Note Date: 07/28/24 This is a 78-year-old male patient with a history of rheumatoid arthritis, hypertension, BPH. He was recently here in May for atypical chest pain and COVID-19 pneumonitis. Discharged home on May 15, 2024. Since that time he had been doing well. Pain the patient was having a 2 to 3-day history of worsening shortness of breath. He was active yesterday and cleaning out his garage and did complain of shortness of breath and some chest discomfort. He developed worsening shortness of breath throughout the night. EMS was called and the arrival the patient had collapse. He was pulseless and CPR was started taking approximately 5 minutes until return of spontaneous circulation. He was brought in and being assisted with a bag valve mask device and a pulse ox of 74 and then intubated in the emergency department. He was brought up to the intensive care unit. He is currently intubated, sedated on the mechanical ventilator at a rate of 24, tidal volume 450, FiO2 90% and a PEEP of 10. Blood gases had revealed a PaO2 of 70, pCO2 of 62 and a pH of 7.14 on 100% FiO2. He is on fentanyl at 1.5 mcg/kg/h. He is currently on a heparin drip per weight- based protocol. Norepinephrine at 13.5 mcg/min. Propofol at 30 mcg/kg/min. CT scan of the brain revealed no acute findings. CT angiogram revealed no evidence of pulmonary embolism. There is small bilateral effusions. Some patchy a irspace opacity/consolidation throughout both lungs. Mild groundglass opacities. White count 19.7. Hemoglobin 14.6. Platelets 208. Sodium 138. Potassium 4.3. Bicarb 13. BUN 18. Creatinine 1.13. Glucose 313. Troponin 0.588. proBNP 2770. TSH 7.36. Viral screen is negative. The patient is seen today July 12, 2024 in follow-up in the intensive care unit. He remains intubated sedated on the mechanical ventilator. Currently in assist-control mode with a rate of 30, tidal volume 450, FiO2 40% and a PEEP of 10. Morning blood gases revealed a PaO2 of 163, pCO2 of 26 and a pH of 7.49 and 50% FiO2. The PEEP will be decreased to 5. He is currently on cefazolin. Remains on bronchodilators. He is continued on a heparin drip per weight-based protocol. Norepinephrine at 0.03 mcg/kg/min. Propofol at 35 mcg/kg/min. Fentanyl drip at 1.25 mcg/kg/h. White count 9.6. Hemoglobin 11.4. Platelets 166. Sodium 136. Potassium 3.9. Bicarb 18. BUN 29. Creatinine 1.47. Glucose 114. Continue tube feedings of vital AF at a rate of 10 with a goal of 57. Will be on hold for cardiac catheterization today 07/13/2024, the patient is being seen for a follow-up. The patient remains intubated on the mechanical ventilator. He requires mechanical support for his cardiogenic shock postcardiac arrest and the patient is an Impella with a P7 support and a 3.1 L/min of augmentation. The patient remains on sedatives and the patient is currently on propofol the patient is 0.7. On the mechanical ventilator at a rate of 30, tidal volume of 450, FiO2 40% with PEEP of 5. Blood gas showed pH of 7.46 with a pCO2 of 27 and pO2 of 97. Chest x-ray shows cardiomegaly without any acute abnormalities. Orotracheal tubes are in good perfusion. The patient is currently on KVO IV fluids. The patient is on no pressors and the patient was taken off norepinephrine and is producing adequate amount of urine output in the order of 50 cc an hour. He remains on IV heparin. Creatinine is improved and the patient's creatinine peaked at 1.47 and currently is down to 1.08. He has a left subclavian triple-lumen catheter in place. Glass Deposition Tender on the case and the patient underwent a cardiac catheterization on 07/12/2024 and the patient was found to have extremely calcified right and left coronary system with evidence of triple-vessel coronary artery disease and severely elevated left ventricular end-diastolic pressure. The white cell count at 7.9 with a hemoglobin 10.8 and a platelet count of 123. Sodium levels at 135, bicarbonate 18, BUN 27 with a creatinine of 1.08. LDH level is at 984. The echocardiogram was completed and the patient was found to have severe impairment of the LV function with an ejection fraction of 25 to 30%. There is also severe cardiomyopathy with wall motion abnormalities involving the apical area that was quite hypokinetic. The patient remains on aspirin. The patient remains on statins and the patient is currently on Lipitor 40 mg p.o. daily. Remains on IV heparin. He is also on vital AF for enteral feeding and nutritional support. Glass Deposition Tender on the case. Cardiothoracic surgery was also involved in his care. The patient was deemed a high surgical risk for coronary intervention and bypass. On 07/14/2024, the patient is being seen for a follow-up. The patient remains sedated and the patient is currently on a combination of propofol running at 40 mcg/kg/min and fentanyl at 0.75 mcg/kg/h. The patient remains well sedated on mechanical ventilator and Impella for mechanical support for cardiogenic shock. This morning, the patient's Impella has been switched to P4 support with an augmentation of 2.5 L/min. The patient remains off pressors. Is producing adequate amount of urine output. Fluid balance is +1 L over the past 24 hours. He is hemolyzing and the hemoglobin is currently down to 9.9. Most recent LDH is at 946. At the same time, the patient remains on the mechanical ventilator. He is on assist-control mode with rate of 18, tidal volume of 450, FiO2 40% with a PEEP of 5. The blood gas from today shows a pH of 7.33 with a pCO2 of 41 and pO2 of 97. Chest x-ray is consistent with CHF/increased incisional markings consistent with heart failure. Orotracheal tube is in a good location. The patient has diffuse interstitial pattern bilaterally along with cardiomegaly and he has developed some small bilateral pleural effusions worse on the left. He remains on IV heparin. Remains on enteral feeding for additional support and the patient is currently on vital AF at rate of 35 cc an hour. IV fluids are currently at KVO. The patient's cardiac rhythm is sinus. The white cell count is 6.7 with a hemoglobin 9.9 and a platelet count of 106. The BUN is 17 with a creatinine of 0.8 and a sodium levels at 137, bicarb is at 22. 07/15/2024, the patient is being seen for a follow-up. The patient has signs of anoxic encephalopathy. The patient was given sedation holiday yesterday and he did not demonstrate adequate neurologic recovery. It was noted that he was not moving his right side effectively compared to the left. Based on that, the patient was placed back on propofol which is currently running at 40 mcg/kg/min. Attempts to wean off his Impella failed yesterday the patient became hypoten sive. The patient was given IV fluids and norepinephrine and the patient is currently off norepinephrine. He has Impella is augmenting at P4 level with 2.5 L/min augmentation. Fluid balance is +600 cc over the past 24 hours and the patient is producing urine output in the order of 30 to 40 cc an hour. No diuretics for now. Chest x-ray still showing CHF and bilateral pleural effusion right more than left. Remains on mechanical ventilator, assist-control mode with rate of 16, tidal volume of 450, FiO2 40% with a PEEP of 5. pH is 7.34 with a pCO2 of 43 and pO2 of 86. He is doing abdominal breathing and based on that, the patient was switched to pressure control mode of mechanical ventil ation. He is on vital AF at a rate of 35 cc an hour. The white cell count is 7.4, hemoglobin 9.6, his platelet count is at 116. LDH level is 625. Electrolytes are all within normal limits with a BUN of 14 and a creatinine of 0.7. Noted the patient's platelet count has dropped during this current admission and the patient remains on IV heparin. A limited echocardiogram was done yesterday and the patient was found to have impaired LV function with an estimated ejection fraction of around 40%. The patient also had segmental wall motion abnormalities. There was moderate LV dysfunction based on the echocardiogram. 07/16/2024, the patient is being seen for a follow-up. Events from yesterday was noted. Following a failed sedation holiday, the patient was noted to have some right-sided weakness. Based on that, a CAT scan of the brain was done and it showed a low-attenuation area in the left parietal lobe suspecting an evolving stroke. Another sedation holiday will be given today. Meanwhile, the patient will be kept on Impella pending cardiac catheterization and coronary interven tion as planned by cardiology. The patient is currently on a pressure control mode of mechanical ventilation, at rate of 18, pressure control of 20, FiO2 of 40% with a PEEP of 5. Blood gas showed a pH of 7.34 with pCO2 49 and pO2 of 92. Remains on IV heparin. He had some episodic hematuria but subsided. Fluid balance is -687 cc over the past 24 hours. Patient was receiving enteral feeding for nutritional support and currently it is on hold in preparation for cardiac catheterization. He was receiving vital AF at rate of 35 cc an hour. IV fluids are currently at KVO. The patient remains on IV Lasix. Meanwhile, the white cell count is 5.9, hemoglobin is 8.9 and a platelet count is 20. The patient's BUN is 15 with a creatinine of 0.7. Serum bicarb is at 28. Sodium levels at 137 and a potassium level is at 4.2. The patient remains on Impella with P4 support and 2.5 liters per minute of cardiac augmentation. The renal function remains stable with a BUN of 15 and a creatinine of 0.7. The LDH level is 511. Chest x-ray findings from today shows CHF, findings are essentially s table. He is afebrile. 07/17/2024, patient is being seen for a follow-up. The patient underwent a cardiac catheterization yesterday and the patient underwent successful stenting of the proximal and mid LAD. Following that, the Impella was discontinued and the patient was brought back to the intensive care unit. This morning, the patient remains sedated on propofol which is running at 25 mcg/kg/min and fentanyl at 0.5 mcg/kg/h. He remains on assist-control mode of mechanical ventilation. Pressure control cycled, with a pressure control of 20, rate of 16, FiO2 40% with a PEEP of 5. Blood gas showed a pH of 7.4 with a pCO2 40 and pO2 112. Chest x-ray shows cardiomegaly with bilateral pleural effusions and orotracheal tube is in good location. Fluid balance is plus a 1.5 L over the past 24 hours. Patient is on enteral feeding for nutritional support. A repeat CAT scan of the brain and C-spine was done yesterday and the CAT scan showed no acute intracranial process. Chronic appearing periventricular white matter ischemic changes were seen and there were less pronounced on the follow-up CAT scan. The white cell count of 5.5, hemoglobin is 8.7, platelet count is 97, BUN is at 16 with a creatinine of 0.7, bicarb is 23 and sodium levels at 135. LFTs are within normal limits. Afebrile. Hemodynamically stable on no pressors. Off the nitroglycerin drip for now. Cardiac rhythm is sinus bradycardia in the mid 50s. 07/18/2024, the patient was extubated and the patient was awake and alert and communicating. Earlier this morning, the patient was on oxygen at 2 L/min nasal cannula and chest x-ray was still showing CHF and bilateral pleural effusion and pulm vessel congestion. He was hemodynamically stable. He was off pressors. He had no complaints. As such, the patient was started on Entresto 24/25 1 tablet a day and the patient was kept on a combination of aspirin and Brilinta. The patient was also receiving Lasix 20 mg IV every 12 hours. The fluid balance is -2 L over the past 24 hours. On neurologic exam, the patient was unable to move his right upper extremity and there is an obvious right lower extremity weakness consistent with an acute CVA. Motor function on the left side was adequate at this point. Following our rounds, the patient became acutely short of breath and he became tachypneic and severe respiratory distress. He was placed on a BiPAP and the blood gas showed severe respiratory acidosis and a chest x-ray was consistent with acute pulmonary edema. Based on that, I had to intubate the patient and I placed him on the mechanical ventilator. Initial blood gases post mechanical ventilation showed a pH of 7.17 with a pCO2 of 66 and pO2 of 151 and based on that, increase the tidal volume to 450, increase the rate up to 28 and dropped FiO2 down to 80%. He remained hemodynamically stable. Slightly hypertensive. BUN is 19 with a creatinine of 0.7. Sodium levels at 139. WBC count 6.4 with a hemoglobin 8.7 and a platelet count of 107. Post intubation chest x-ray was consistent with pulmonary edema. ET tube noted to be pushed in by another 2 cm. He is currently on propofol which is running at 40 mcg/kg/min, calm and comfortable. On 07/19/2024, the patient is being seen for a follow-up. The patient remains intubated on the mechanical ventilator earlier this morning the patient was on propofol running at 50 mcg/kg/min. He failed extubation due to an acute pulmonary edema and the patient had to be reintubated. His current cardiac rhythm is sinus bradycardia. He also has conduction delay and widened QRS prob ably a bundle branch block pattern. This was present since his admission. He was having few episodes of bradycardia and based on that the beta-blockers were placed on hold. He is still on IV Lasix 20 mg every 12 hours. Fluid balance is -2 L over the past 24 hours. He is on assist-control mode with rate of 28, tidal volume of 450, FiO2 of 60% with a PEEP of 5. Blood gas showed pH of 7.51 with a pCO2 of 33 and pO2 of 120. Chest x-ray still showing pulmonary edema. The patient was started on Entresto. He was started also on enteral feeding for nutritional support and the patient is on vital AF. Afebrile. No other significant issues overnight. Cardiology remains on the case. Remains on aspirin and Brilinta. 07/20/2024, remains in the ICU, intubated and mechanically ventilated, patient is on assist-control rate of 22 tidal volume 450 FiO2 40% and PEEP of 5 ABG showed a pO2 of 82 pCO2 35 pH of 7.50 FiO2 was cut down to 20. Increase flow rate to 60 L/min. Patient is on amiodarone at 0.5 mg/min IV fluid is running at 75 cc/h patient is scheduled to undergo repeat cardiac catheterization today. His last ejection fraction on echocardiogram was 15 to 20%. Patient failed wean ing at 1 point as he developed pulmonary edema shortly after he was extubated. Patient also had a previous stent of the LAD on his initial admission he had an Impella device placed and has been removed patient continues to have right-sided weakness. Intermittently the patient is in atrial fibrillation continues on amiodarone. Again he scheduled to have cardiac catheterization today. Chest x-ray continues to show evidence of pulmonary edema. WBC count is 10.5 hemoglobin is 9.6 basic metabolic profile is normal and renal profile is normal. 07/21/2024, remains in the ICU, intubated mechanically ventilated, patient underwent multiple stents to RCA and obtuse marginal 1 and he was found to have patent stent in LAD patient is on assist-control rate of 20 tidal volume 450 FiO2 40% and PEEP of 5 ABG showed a pO2 of 86 pCO2 38 pH of 7.46. Patient remains on amiodarone at 0.5 mg/min propofol 30 mg/kg/min norepinephrine is presently on hold, remains on Lasix 20 mg IV push twice daily, patient is scheduled to have CRISTINE and possible cardioversion today. Antibiotics grullon he received cefepime considering a chest x-ray continues show bibasilar infiltrates, I recommended that we start the patient on Zosyn. And will check procalcitonin. Discussed today his condition with cardiology again planning CRISTINE and cardioversion WBC count is 12.1 hemoglobin 9.5.Basic metabolic profile is normal renal profile is normal 07/22/2024, remains in the ICU, intubated and mechanically ventilated. Patient remains on assist-control rate of 20 tidal volume 450 FiO2 40% and PEEP of 5 ABG showed a pO2 of 85 pCO2 4 0 pH of 7.43, chest x-ray continues to show evidence of bilateral interstitial infiltrates/edema patient did receive Lasix and he remains on Lasix 20 mg IV push every 12 hours with marginal urine output. His procalcitonin was normal patient remains empirically on Zosyn. Chest x-ray was reviewed patient was on propofol at 5 mcg/kg/min, and I recommended stopping propofol, patient was given a short weaning trial for about half an hour on pressure support of 14 and CPAP, patient did not seem to do well with the pressure support, he became quite tachypneic, tachycardic, and he had lots of secretions coming out of the endotracheal tube. Hence no further weaning was attempted, patient be placed back on AC mode of mechanical ventilation, and he is not quite ready to wean. WBC count today is 9.6 hemoglobin 8.8 PTT is 52, basic metabolic profile is normal BUN is 32 creatinine 1.15 07/23/2024, patient remains in the ICU, intubated and mechanically ventilated, on assist-control rate 20 tidal volume 450 FiO2 40% PEEP of 5 ABG showed a pO2 of 95 pCO2 40 pH of 7.43 chest x-ray is showing interstitial edema/infiltrates. Patient is on propofol at 25 IV fluid at KVO Lasix was given earlier 20 mg IV push was given x 1 patient remains on Zosyn empirically remains on Eliquis for his cardiac arrhythmia. Continues to have secretions but the secretions are clear. Less today compared to yesterday, hence the patient may be given a weaning trial on pressure support and CPAPWBC count is 9.6 hemoglobin 8.9 electrolytes are normal renal profile showed a BUN of 40 creatinine 1.29 sligh tly worse compared to yesterday's creatinine of 1.15. 07/24/2024, remains in the ICU, he is on 4 L nasal cannula, extubated yesterday, tolerated the extubation well. Patient has a relatively strong cough, remains on diuretics, remains on Zosyn, remains on Eliquis. He is on 4 L nasal cannula, does not seem to be in any distress, however is a bit slow. Patient is in sinus rhythm, hemodynamically stable, no evidence of any ectopy or recurrent atrial fibrillation. Denies any chest discomfort. Lasix was increased to 20 mg IV push every 12 hours, chest x-ray is showing slight worsening of his interstitial edema, underlying pneumonia is not entirely ruled out, patient is receiving Zosyn, procalcitonin level was normal. In addition to Lasix, patient is also on Aldactone 25 mg daily he is also on metoprolol, Brilinta, Entresto, and Lipitor as well as aspirin and amiodarone 07/25/2024, patient remains in the ICU, as [id number] last night the patient took a downhill course, he developed what seems to be a picture of pulmonary edema, patient did not do well with BiPAP, continued to desaturate, he was quite tachypneic, I was notified about this patient around 10:30 PM, patient was in respiratory distress, I recommended immediate intubation and mechanical ventilation. Patient was reintubated last night around 1045, he is now on assist-control rate of 22 tidal volume 500 FiO2 down to 45% he was on 100% earlier PEEP of 5 and flow rate is 65 L/min. Patient is prop on propofol but not on norepinephrine, blood pressure is marginal. Patient did receive Lasix 40 mg IV push every 8 hours remains on Eliquis remains on Zosyn for presumptive aspiration pneumonia. His ABG earlier today showed a pO2 of 273 pCO2 37 pH of 7.43. ABG right after intubation showed a pO2 of 73 pCO2 of 60 pH of 7.23 the patient is down to 45%, PEEP is at 5, and he is on rate of 22 with tidal volume 500. WBC count today is 16.8 hemoglobin is 10, basic metabolic profile is normal BUN is 31 creatinine 1.19Current BNP level is 5760 with normal procalcitonin level of 0.22 chest x-ray is showing improving pulmonary edema chest x-ray this morning is better than the chest x-ray he had at the time of in tubation On 07/26/2024, patient is basically about the same intubated and mechanically ventilated, he is on assist-control rate of 22 tidal volume 500 FiO2 50% and PEEP of 5 ABG showed a pO2 of 121 pCO2 29 pH of 7.54 hence his rate was cut down to 18 and his FiO2 cut down to 40%. Patient is on propofol at 50 mcg/kg/min he is also on norepinephrine at 0.08 mcg/kg/min IV fluids at KVO, remains on Lasix 40 mg IV push every 8 hours. Patient is also on Eliquis. His sister who is also his power of asphalt distributor tender/legal guardian, requested DNR CODE STATUS. Patient is not arousable at this point since he is on propofol, but I plan to discontinue propofol, awaken the patient, and give the patient a weaning trial, I have explained to the sister his condition, and she is agreeable to proceed with trials of weaning, however if the patient is extubated and needed to be reintubated, not to reintubate and go to comfort care measures at this point. Patient will definitely be given weaning trials hopefully today once he is awake and appropriate. Chest x-ray is showing improvement in his pulmonary edema nonetheless it is not completely resolved. WBC count today is 11.1 hemoglobin is 10.1. Potassium is low at 2.8 being addressed accordingly his BUN is 28 creatinine 1.17. On 07/27/2024, he is intubated and mechanically ventilated, he is on assist- control rate of 18 tidal volume 500 FiO2 40% and PEEP of 5 ABG showed a pO2 of 82 pCO2 37 pH of 7.51. Patient was on d/c propofol and norepinephrine, IV fluids at NS at 20 mls/hr, remains on Lasix 40 mg IV push every 8 hours. Patient is also on Eliquis. He is DNR CODE STATUS. Will give the patient a weaning trial with parameters of Vt357, RR 21, MV 7.81, RSBI 56, VC 1035, NIF-15 with positive cuff leak. It was previously discussed if the patient is extubated and needed to be reintubated, not to reintubate and go to comfort care measures at this point. Chest x-ray is showing improvement in his pulmonary edema nonetheless it is not completely resolved. WBC count today is 8.4 has improved, and hemoglobin is 9.0 has decreased. Potassium is low at 3.6, his BUN is 28 creatinine 1.23. Patient was seen today, 07/27/2024, was extubated yesterday morning and subsequently placed on BiPAP. He continued to improve and in the afternoon went on nasal cannula 4 L and continues to saturate well. He is now on IV fluids at NS at 10 mls/hr, remains on Lasix 40 mg IV push every 8 hours. Patient is also on Eliquis. He is DNR CODE STATUS. It was previously discussed we are not to reintubate patient and if he decompensates he go will to comfort care measures at this point. Chest x-ray is showing improvement in his pulmonary edema nonetheless it is not completely resolved. WBC count today is 8.1, and hemoglobin is 8.5. Sodium 146, potassium 3.6, bicarb 34, BUN 27, creatinine 1.05, calcium 8.0. Objective - Vital Signs Vital signs: Vital Signs Temp 97.6 F 07/28/24 08:00 Pulse 65 07/28/24 08:00 Resp 32 H 07/28/24 08:00 BP 140/60 07/28/24 08:00 Pulse Ox 98 07/28/24 08:05 FiO2 40 07/27/24 15:40 Intake & Output 07/27/24 07/28/24 07/28/24 18:59 06:59 18:59 Intake Total 258.745 30 Output Total 1825 850 Balance -1566.255 -820 Weight 106.2 kg 101.7 kg Intake: IV 130 30 0.9 KVO @ 20 130 30 Intake, IV Titration 108.745 Amount Dexmedetomidine/0.9% NaCl 108.745 (Pmx) 400 mcg In Empty Bag 1 bag @ 0.2 MCG/KG/HR 5.3 mls/hr IV .[id number] [facility] Rx#:[id number] Tube Feeding 20 Output: Urine 1825 850 Other: Voiding Method Indwelling Catheter Indwelling Catheter # Bowel Movements 1 ABP, PAP, CO, CI - Last Documented Arterial Blood Pressure 175/52 - Exam GENERAL EXAM: Revealed a 78-year-old male on 4L NC HEAD: Normocephalic. Atraumatic. EYES: Normal reaction of pupils, equal size. NOSE: Clear with pink turbinates. THROAT: moist mucous membranes NECK: No masses, no JVD. CHEST: No chest wall deformity. Symmetrical expansion no rales, or crackles noted CVS: Distant S1 and S2 normal with no audible murmur, regular rhythm. ABDOMEN: No hepatosplenomegaly, normal bowel sounds, no guarding or rigidity. SKIN: No rashes CENTRAL NERVOUS SYSTEM: intubated, responds appropriately with nodding Psychiatric: clear mentation, AO x3 EXTREMITIES: No clubbing, no pedal edema noted, no cyanosis. Good pulses bilaterally - Labs CBC & Chem 7: 07/28/24 06:58 07/28/24 06:58 Labs: Abnormal Lab Results - Last 24 Hours (Table) 07/27/24 07/28/24 07/28/24 Range/Units 13:27 06:58 06:58 RBC 4.06 L (4.30-5.90) m/uL Hgb 8.5 L (13.0-17.5) gm/dL Hct 27.6 L (39.0-53.0) % MCV 67.9 L (80.0-100.0) fL MCH 20.9 L (25.0-35.0) pg MCHC 30.8 L (31.0-37.0) g/dL RDW 16.4 H (11.5-15.5) % Sodium 146 H (137-145) mmol/L Chloride 108 H (98-107) mmol/L Carbon Dioxide 34 H (22-30) mmol/L BUN 27 H (9-20) mg/dL POC Glucose (mg/dL) 117 H (70-110) mg/dL Calcium 8.0 L (8.4-10.2) mg/dL Albumin 3.2 L (3.5-5.0) g/dL Microbiology - Last 24 Hours (Table) 07/25/24 10:00 Blood Culture - Preliminary Blood 07/25/24 04:37 Gram Stain - Final Sputum Sputum Culture - Final Assessment and Plan Plan: Status post cardiac arrest, [id number] CPR, downtime about 5 minutes. Acute hypoxic respiratory failure secondary to above. Patient has developed extensive pulmonary edema secondary to LV dysfunction secondary to ischemic cardiomyopathy. Pulmonary edema with bilateral pleural effusions Acute non-ST segment elevation myocardial infarction, status post cardiac catheterization indicating triple-vessel coronary artery disease, status post cardiac catheterization and stenting x 2 of the mid and proximal LAD and the patient is currently on a combination of aspirin and Brilinta and the Impella has been discontinued Cardiogenic shock, required Impella device, for a brief period of time Acute CVA with motor weakness in the right side, right upper extremity more than right lower extremity. Acute kidney injury, recovered and the patient is producing adequate amount of urine output Recent discharge in May 2024 for atypical chest pain and COVID-19 infection/pneumonitis Rheumatoid arthritis Hypertension Benign prostatic hyperplasia Thrombocytopenia, improving Chronic anemia Reintubation on 07/16/2024 mostly because of worsening pulmonary edema, patient pulled out his own endotracheal tube at that time Reintubation on 07/24/2024 Extubated 07/28/24 Recommendation: Discussed and updated his sister at bedside about his condition, she requested DNR CODE STATUS and made aware that we will try to give him a weaning trial today, if extubated the patient is not to be reintubated. Patient was extubated on 07/23/2024, tolerated the extubation well until late in the day 07/24/2024, patient had to be reintubated with worsening pulmonary edema Continue diuretics and antibiotics Lasix is now at 40 mg IV push every 8 hours Continue dual antiplatelet and anticoagulation Continue Entresto, continue Brilinta, continue Eliquis, continue beta-blockers and amiodarone 200 mg daily. Patient is also on aspirin Discontinued Propofol, and Zosyn Extubated 07/28/24 and was transitioned to Bipap 15/5/40%, and now on 4L NC Continue 4 L NC, increase O2 to maintain O2 sat >92% Continue to monitor I's and O's and daily labs. Daily x-rays of the chest continue chopped diet Continue GI and DVT prophylaxis as above Critical care time is over 30, not including time spent on procedures Previously discussed condition with his sister at bedside Will be downgraded to medical floor Will continue to follow patient
[2024-07-28 12:06] LABS: Glucose,Whole Blood 103 mg/dL (70-110)
--- NOTE | 2024-07-28 15:15 | P.PN ---
Subjective PROGRESS NOTE The patient is a 78-year-old male who was admitted to the hospital on July 11 with cardiac arrest, severe cardiomyopathy and severe triple-vessel disease. He was evaluated by Dr. Abrams, underwent an Impella placement. His echocardiogram on presentation showed an ejection fraction 25 to 30% with anterior apical hypokinesis. On July 16 he underwent stenting of the LAD with removal of the Impella CP. He remains intubated, sedated. He is having episodes of paroxysmal atrial fibrillation with sinus bradycardia at times. He has good urine output. He is scheduled to undergo PCI of the RCA and the left circumflex today. He is on no vasopressors. He was found to have right-sided weakness suggestive of a cerebrovascular accident. Repeat echocardiogram on July 14 showed an ejection fraction of 40% while he was on the Impella. He was extubated but had to be reintubated because of respiratory distress. He has no evidence of ventricular ectopic activity. July 21: The patient remains intubated and sedated, in atrial fibrillation. He had episodes of recurrent rapid ventricle response. He is on beta-blockers, well- tolerated. He continues to be on IV amiodarone. He underwent stenting of the left circumflex and RCA yesterday. He is on no vasopressors. His urinary output is good. There is no evidence of ventricular tachycardia. July 22: The patient remains intubated he is more awake. He underwent CRISTINE guided cardioversion yesterday with lutheran of sinus mechanism. He continues to be in sinus mechanism today, his CRISTINE showed an ejection fraction of 35 to 40% with no reported segmental wall motion abnormality. His urinary output is stable. He is on no vasopressors. He has no evidence of ventricular ectopic activity. He continues to be on IV heparin and IV amiodarone. He is following commands. July 23: The patient remains intubated, attempt to wean yesterday were unsuccessful. He continues to be in sinus mechanism with sinus bradycardia but no pauses. He is sedated at this time. His urinary output has been stable. He had no evidence of ventricular ectopic activity. He has been started on oral amiodarone and on Eliquis. July 24: The patient is extubated, alert and oriented. Complaining of dryness in his eyes. He continues to be in sinus mechanism. He has no evidence of ventricular ectopic activity or recurrent atrial fibrillation. He denies any chest disco mfort or significant dyspnea. He denies any dizziness or palpitations. July 25: The patient had worsening respiratory status yesterday night with progressive dyspnea and hypoxemia requiring BiPAP initially and subsequently intubated because of evidence of acute pulmonary edema. He continues to be in sinus mechanism on no vasopressors. His urinary output has been stable. He is on IV Lasix. There is no evidence of recurrent atrial fibrillation or evidence of ventricular tachyarrhythmia. July 26: The patient remains intubated, he is back in sinus mechanism. His urinary output is stable. He is on a low-dose of norepinephrine. He has no ventricular ectopic activity. He had sinus bradycardia earlier yesterday prior to converting to atrial fibrillation, he is in sinus bradycardia at this time. 07/27 Patient seen and examined. Patient is maintained on IV Lasix 40 mg IV 3 times a day. Creatinine stable at 1.2. Good urine output. Denies any chest pain or pressure. He was extubated was on BiPAP however currently tolerating nasal cannula. He is bradycardic with heart rates in the 40s however is also maintained on Precedex. 07/28 patient seen and examined. Hemoglobin 8.5, creatinine 1.0, sodium 146. Blood pressure well controlled with systolics 100s to 120s. Currently on 3 L nasal cannula. Denies any chest pain or pressure. He was briefly on BiPAP however has not required. He is receiving IV Lasix 40 mg IV every 8 hours with marginal urine output however has not been eating much and is getting mildly hypernatremic with sodium 146. PHYSICAL EXAMINATION: Blood pressure 140/40 heart rate 58, intubated and sedated LUNGS: Clear to auscultation HEART: Regular rate and rhythm, S1, S2. No S3. Systolic ejection murmur ABDOMEN: Soft, obese, no organomegaly EXTREMETIES: Trace to 1+ edema, LAB: Hemoglobin 10.1, platelets count 548, potassium 4.3, BUN 28, creatinine 1.17. IMPRESSION: 1. Cardiac arrest with severe cardiomyopathy and cardiogenic shock status post Impella 2. Severe triple-vessel disease, status post stenting of the LAD and stenting of the left circumflex and RCA on July 20 3. Paroxysmal atrial fibrillation alternating with sinus bradycardia, back in sinus bradycardia at this time, post cardioversion 4. Evidence suggests right sided weakness related to a cerebrovascular accident 5. Respiratory failure with reintubation,, patient had to be reintubated because flash pulmonary edema 6. Acute renal injury, resolved 7. History of hypertension 8. Bradycardia, asymptomatic PLAN: Continue with heart failure regimen. Continue with IV diuretics for now however is not eating much, decreased oral intake and mild hypernatremia. Monitor closely. Objective - Vital Signs Vital signs: Vital Signs Temp 97.6 F 07/28/24 12:00 Pulse 61 07/28/24 12:00 Resp 14 07/28/24 12:00 BP 107/46 07/28/24 12:00 Pulse Ox 98 07/28/24 12:00 FiO2 40 07/27/24 15:40 Intake & Output 07/27/24 07/28/24 07/28/24 18:59 06:59 18:59 Intake Total 258.745 30 60 Output Total 1825 850 450 Balance -1566.255 -820 -390 Weight 106.2 kg 101.7 kg Intake: IV 130 30 60 0.9 KVO @ 20 130 30 60 Intake, IV Titration 108.745 Amount Dexmedetomidine/0.9% NaCl 108.745 (Pmx) 400 mcg In Empty Bag 1 bag @ 0.2 MCG/KG/HR 5.3 mls/hr IV .[id number] [facility] Rx#:[id number] Tube Feeding 20 Output: Urine 1825 850 450 Other: Voiding Method Indwelling Catheter Indwelling Catheter Indwelling Catheter # Bowel Movements 1 ABP, PAP, CO, CI - Last Documented Arterial Blood Pressure 154/36 - Labs CBC & Chem 7: 07/28/24 06:58 07/28/24 06:58 Labs: Abnormal Lab Results - Last 24 Hours (Table) 07/28/24 07/28/24 Range/Units 06:58 06:58 RBC 4.06 L (4.30-5.90) m/uL Hgb 8.5 L (13.0-17.5) gm/dL Hct 27.6 L (39.0-53.0) % MCV 67.9 L (80.0-100.0) fL MCH 20.9 L (25.0-35.0) pg MCHC 30.8 L (31.0-37.0) g/dL RDW 16.4 H (11.5-15.5) % Sodium 146 H (137-145) mmol/L Chloride 108 H (98-107) mmol/L Carbon Dioxide 34 H (22-30) mmol/L BUN 27 H (9-20) mg/dL Calcium 8.0 L (8.4-10.2) mg/dL Albumin 3.2 L (3.5-5.0) g/dL Microbiology - Last 24 Hours (Table) 07/25/24 10:00 Blood Culture - Preliminary Blood 07/25/24 04:37 Gram Stain - Final Sputum Sputum Culture - Final
--- NOTE | 2024-07-28 16:42 | P.PN ---
Subjective Progress Note Date: 07/28/24 78-year-old male with PMH of rheumatoid arthritis, hypertension and BPH was brought to the emergency department via EMS for cardiopulmonary arrest. Recently admitted from 05/13-05/[address] slightly with elevated troponins likely secondary to COVID-19 pneumonitis, Echo at that time showed LVEF of 55% and moderate pulmonary hypertension. His initial laboratory evaluation shows WBC of 19.7, RBC 6.95, MCV 74.8, APTT 39.7, bicarb 13, glu 313. Mag 2.6. BNP 2770. Trop 0.588 up to 21.1. Lactic acid 3.2. TSH 7.63, FT4 0.8. Procal 2.82. ABG pH 7.01, pCO2 91. COVID, RSV, Flu neg. CXR showed diffuse patchy infiltrate with groundglass opacities and bilateral pleural effusion. Brain CT showed no acute intracranial process. Chest CTA is negative for pulmonary embolism and patchy opacities throughout both lungs with small bilateral pleural effusions. EKG showed sinus bradycardia with a RBBB and T wave inversions in anteroseptal and lateral leads. Echocardiogram showed LVEF of 25 to 30% and ischemic car diomyopathy with apical hypokinesis. Intubated and transferred to ICU. Started on heparin drip. Underwent cardiac cath on 07/12 showing extremely calcified right and left coronary system with critical triple-vessel CAD, severely elevated left-sided filling pressure and successful placement of Impella CP in the LV. CT surgery consulted, ultimately would like patient to recover from his acute events to optimize surgical outcome. Noted R hemiparesis with inadequate neurologic recovery from a sedation holiday on 07/15, Neurology consulted, CT brain on 07/15 showed concern for suspected left parietal subacute CVA. CT brain was repeated again on 07/17 which at this time showed no acute intracranial p rocess. Patient underwent successful stenting to mid and proximal LAD on 07/17 with Impella removal. Extubated and re-intubated on 07/18. Underwent successful PCI OM1 of left circumflex and RCA on 07/20. Complicated with A-Fib RVR requiring CRISTINE and cardioversion on 07/21. Extubated on 07/23 and re-intubated for flash pulmonary edema. MRI brain showed acute left periventricular basal ganglion ischemic type changes, punctate ischemic changes of the left frontal and right occipital lobe. Extubated 07/26. 07/28 Patient was seen and examined. CBC and CMP significant for RBC 4.06, Hg 8.5, Hct 27.6, MCV 67.9, Na 146, Cl 108, bicarb 34, BUN 27, Ca 8, alb 3.2. CXR shows improving pulmonary vascular congestion. He is on Precedex at 0.4 mcg/kg/hr. Receiving Lasix 40 mg IV TID. Negative 1196.185 cc fluid balance. Currently off Levophed and Propofol. General: NAD Derm: warm, dry Head: atraumatic, normocephalic, symmetric Eyes: EOMI, no lid lag, anicteric sclera Mouth: no lip lesion, mucus membranes moist Cardiovascular: S1S2 reg, no murmur Lungs: Rhonchi bilateral, no accessory muscle use Ext: no gross muscle atrophy, no edema, no contractures Neuro: RUE 1-2/5, RLE 2/5 strength. CHAY and LLE 5/5 strength Psych: AO x 1-2 Based on my assessment of this patient, this patient meets a high complexity level of care. Out of the hospital cardiopulmonary arrest currently ventilator dependent: Pul monary to attempt weaning trial. If extubated, patient is not to be re- intubated. Pulmonary on board. Empirically treated with Zosyn 3.75g IV TID. NSTEMI status post stents to LAD, OM1 branch of LCx and mid RCA: ASA 81 mg PO QD. Lipitor 40 mg PO QHS. Brilinta 90 mg PO BID. Cardiogenic Shock status post Impella (07/12-07/17) and pressors Acute systolic CHF exacerbation with ejection fraction of 25 to 30%: Lasix 40 mg IV TID. Strict intake and outtake. Daily weights. Monitor renal function while on IV lasix. Farxiga 10 mg PO QD. Metoprolol 25 mg PO BID. Entresto 24-26 mg PO BID. Aldactone 25 mg PO QD. Acute encephalopathy, likely anoxic brain injury with concerns of Subacute left parietal CVA: ASA, Lipitor, Eliquis and Brilinta as above. Paroxysmal A-fib with the RVR, now in sinus rhythm, status post cardioversion: Amiodarone 200 mg PO QD. Eliquis 5 mg PO BID. Hypertension: Metoprolol, Entresto, Aldactone as above. Euthyroid sick syndrome secondary above: Outpatient monitoring. Microcytic anemia: Transfuse if Hg < 7. History of COVID-19 pneumonitis Resolved: Bandemia, AG metabolic acidosis, Lactic acidosis, HyperMag CODE STATUS: NO CODE. DVT Prophylaxis: Eliquis 5 mg PO BID. GI Prophylaxis: Protonix 40 mg IV QD. Designated medical POA if patient is not able to make medical decisions for themselves: Sister I have reviewed the following science consultant notes: Pulmonary, Cardiology, Neurology I have reviewed the results of the following tests: As above. I have ordered the following tests: As above. I have discussed the care of this patient with the following independent historian: RN I have independently interpreted the following test below: CXR I have discussed the management of this patient with the following physician: Objective - Vital Signs Vital signs: Vital Signs Temp 98.0 F 07/28/24 16:00 Pulse 58 L 07/28/24 16:00 Resp 18 07/28/24 16:00 BP 126/51 07/28/24 16:00 Pulse Ox 99 07/28/24 16:00 FiO2 40 07/27/24 15:40 Intake & Output 07/27/24 07/28/24 07/28/24 18:59 06:59 18:59 Intake Total 258.745 30 300 Output Total 1825 850 630 Balance -1566.255 -820 -330 Weight 106.2 kg 101.7 kg Intake: IV 130 30 60 0.9 KVO @ 20 130 30 60 Intake, IV Titration 108.745 Amount Dexmedetomidine/0.9% NaCl 108.745 (Pmx) 400 mcg In Empty Bag 1 bag @ 0.2 MCG/KG/HR 5.3 mls/hr IV .[id number] [facility] Rx#:[id number] Oral 240 Tube Feeding 20 Output: Urine 1825 850 630 Other: Voiding Method Indwelling Catheter Indwelling Catheter Indwelling Catheter # Bowel Movements 1 ABP, PAP, CO, CI - Last Documented Arterial Blood Pressure 156/40 - Labs CBC & Chem 7: 07/28/24 06:58 07/28/24 06:58 Labs: Abnormal Lab Results - Last 24 Hours (Table) 07/28/24 07/28/24 Range/Units 06:58 06:58 RBC 4.06 L (4.30-5.90) m/uL Hgb 8.5 L (13.0-17.5) gm/dL Hct 27.6 L (39.0-53.0) % MCV 67.9 L (80.0-100.0) fL MCH 20.9 L (25.0-35.0) pg MCHC 30.8 L (31.0-37.0) g/dL RDW 16.4 H (11.5-15.5) % Sodium 146 H (137-145) mmol/L Chloride 108 H (98-107) mmol/L Carbon Dioxide 34 H (22-30) mmol/L BUN 27 H (9-20) mg/dL Calcium 8.0 L (8.4-10.2) mg/dL Albumin 3.2 L (3.5-5.0) g/dL Microbiology - Last 24 Hours (Table) 07/25/24 10:00 Blood Culture - Preliminary Blood
[2024-07-28 20:24] LABS: Glucose,Whole Blood 104 mg/dL (70-110)
[2024-07-28] MEDS: INSULIN ASPART (NovoLOG) 100 UNIT/ML VIAL SQ SCH (20:41)
[2024-07-28] MEDS: POTASSIUM CHLORIDE ER 20 MEQ TAB.ER PO STA (20:51)
[2024-07-29 05:39] LABS: Glucose,Whole Blood 100 mg/dL (70-110)
[2024-07-29 06:19] LABS: Glucose,Whole Blood 96 mg/dL (70-110)
[2024-07-29 06:55] LABS: Anisocytosis Slight; Basophils # (A) 0.1 k/uL (0-0.2); Basophils % (A) 1 %; Eosinophils # (A) 0.3 k/uL (0-0.7); Eosinophils % (A) 3 %; HGB 9.3 gm/dL (13.0-17.5); Hypochromasia Marked; Lymphocytes # (A) 1.8 k/uL (1.0-4.8); Lymphocytes % (A) 17 %; MCH 20.5 pg (25.0-35.0); MCHC 29.9 g/dL (31.0-37.0); MCV 68.5 fL (80.0-100.0); Mean Platelet Volume 8.4; Microcytosis Marked; Monocytes # (A) 0.7 k/uL (0-1.0); Monocytes % (A) 6 %; Neutrophils # (A) 7.3 k/uL (1.3-7.7); Neutrophils % (A) 71 %; Platelet Count 438 k/uL (150-450); RBC 4.53 m/uL (4.30-5.90); RDW 16.4 % (11.5-15.5); WBC 10.3 k/uL (3.8-10.6)
[2024-07-29 07:16] LABS: ALT 24 U/L (4-49); AST 33 U/L (17-59); African American GFR (CKD) 69 (>60 ml/min/1.73 sqM); Albumin 3.4 g/dL (3.5-5.0); Alkaline Phosphatase 75 U/L (38-126); Anion Gap 4 mmol/L; Blood Urea Nitrogen 28 mg/dL (9-20); Calcium 8.4 mg/dL (8.4-10.2); Carbon Dioxide 36 mmol/L (22-30); Chloride 105 mmol/L (98-107); Glucose 97 mg/dL (74-99); Magnesium 2.1 mg/dL (1.6-2.3); Non-African American GFR(CKD) 60 (>60 ml/min/1.73 sqM); Potassium 3.5 mmol/L (3.5-5.1); Sodium 145 mmol/L (137-145); Total Bilirubin 0.9 mg/dL (0.2-1.3); Total Protein 6.8 g/dL (6.3-8.2)
--- NOTE | 2024-07-29 11:32 | P.PN ---
Subjective Progress Note Date: 07/29/24 78-year-old male with PMH of rheumatoid arthritis, hypertension and BPH was brought to the emergency department via EMS for cardiopulmonary arrest. Recently admitted from 05/13-05/15 for type II ND slightly with elevated troponins likely secondary to COVID-19 pneumonitis, Echo at that time showed LVEF of 55% and moderate pulmonary hypertension. His initial laboratory evaluation shows WBC of 19.7, RBC 6.95, MCV 74.8, APTT 39.7, bicarb 13, glu 313. Mag 2.6. BNP 2770. Trop 0.588 up to 21.1. Lactic acid 3.2. TSH 7.63, FT4 0.8. Procal 2.82. ABG pH 7.01, pCO2 91. COVID, RSV, Flu neg. CXR showed diffuse patchy infiltrate with groundglass opacities and bilateral pleural effusion. Brain CT showed no acute intracranial process. Chest CTA is negative for pulmonary embolism and patchy opacities throughout both lungs with small bilateral pleural effusions. EKG showed sinus bradycardia with a RBBB and T wave inversions in anteroseptal and lateral leads. Echocardiogram showed LVEF of 25 to 30% and ischemic card iomyopathy with apical hypokinesis. Intubated and transferred to ICU. Started on heparin drip. Underwent cardiac cath on 07/12 showing extremely calcified right and left coronary system with critical triple-vessel CAD, severely elevated left-sided filling pressure and successful placement of Impella CP in the LV. CT surgery consulted, ultimately would like patient to recover from his acute events to optimize surgical outcome. Noted R hemiparesis with inadequate neurologic recovery from a sedation holiday on 07/15, Neurology consulted, CT brain on 07/15 showed concern for suspected left parietal subacute CVA. CT brain was repeated again on 07/17 which at this time showed no acute intracranial pr ocess. Patient underwent successful stenting to mid and proximal LAD on 07/17 with Impella removal. Extubated and re-intubated on 07/18. Underwent successful PCI OM1 of left circumflex and RCA on 07/20. Complicated with A-Fib RVR requiring CRISTINE and cardioversion on 07/21. Extubated on 07/23 and re-intubated for flash pulmonary edema. MRI brain showed acute left periventricular basal ganglion ischemic type changes, punctate ischemic changes of the left frontal and right occipital lobe. Extubated 07/26. 07/29: remains confused, heard remains. cr noted to be 1.17. YOP noted to be 1100 cc Objective - Vital Signs Vital signs: Vital Signs Temp 98.2 F 07/29/24 08:53 Pulse 69 07/29/24 08:53 Resp 18 07/29/24 08:53 BP 165/66 07/29/24 08:53 Pulse Ox 98 07/29/24 08:53 FiO2 40 07/27/24 15:40 Intake & Output 07/28/24 07/29/24 07/29/24 18:59 06:59 18:59 Intake Total 300 20 10 Output Total 630 1100 Balance -330 -1080 10 Weight 96 kg Intake: IV 60 20 10 0.9 KVO @ 20 60 Invasive Line 1 20 10 Oral 240 Output: Urine 630 1100 Other: Voiding Method Indwelling Catheter Indwelling Catheter Indwelling Catheter # Bowel Movements 1 ABP, PAP, CO, CI - Last Documented Arterial Blood Pressure 156/40 - Exam General: NAD, male, appears stated age Derm: warm, dry Head: atraumatic, normocephalic, symmetric Eyes: EOMI, no lid lag, anicteric sclera Mouth: no lip lesion, mucus membranes moist Cardiovascular: S1S2 reg, no murmur Lungs: Rhonchi bilateral, no accessory muscle use Ext: no gross muscle atrophy, no edema, no contractures Neuro: RUE 1-2/5, RLE 2/5 strength. CHAY and LLE 5/5 strength. aaox1-2 Psych: calm and coopeative - Labs CBC & Chem 7: 07/29/24 06:31 07/29/24 06:31 Labs: Abnormal Lab Results - Last 24 Hours (Table) 07/29/24 07/29/24 Range/Units 06:31 06:31 Hgb 9.3 L (13.0-17.5) gm/dL Hct 31.0 L (39.0-53.0) % MCV 68.5 L (80.0-100.0) fL MCH 20.5 L (25.0-35.0) pg MCHC 29.9 L (31.0-37.0) g/dL RDW 16.4 H (11.5-15.5) % Carbon Dioxide 36 H (22-30) mmol/L BUN 28 H (9-20) mg/dL Albumin 3.4 L (3.5-5.0) g/dL Microbiology - Last 24 Hours (Table) 07/25/24 10:00 Blood Culture - Preliminary Blood Assessment and Plan Assessment: #) Out of hospital cardiac arrest, and intubated. s/p liberation from mechanical vent on 07/26. continue supplemental NC to maintain spo2 .90%, code status changed to no code this hospitalization #) NSTEMI s/p PCI to lad, om1 of lcx and mid rca- continue asa 81 mg daily, brilinta 90 mg BID and atorvastatin 40 mg hs #) Cardiogenic shock s/p Impella, resolved #) Acute HFrEF, echo noted to show lvef of 25-30%. Continue GDMT with farxiga 10 mg daily metoprolol tartate 25 mg BID and enresto 24-25 mg BID, along with spirinolactone 25 mg daily. continue gdmt as tolerates. COntinue volume control with IV lasix 40 mg TID. Continue heard for today but may be able to d/c t omorrow #) Acute encephlopathy, likely as a result of anoxic brain injury with concerns for subacute left parital cva. continue asa as above #) partoxsymal atrial fibrillation s/p cardioversion. continue amiodarone 200 mg daily for rate/rhyhtm control and eliquis 5 mg bid for thromboembolic risk red uciton # primary htn: as listed above #) hx of covid-19 pnuemonitis GI PPX:PO protonix DVT ppx: eliquis (1) Cardiac arrest Current Visit: Yes Status: Acute Code(s): I46.9 - CARDIAC ARREST, CAUSE UNSPECIFIED SNOMED Code(s): 112070918 Time with Patient: Greater than 30
[2024-07-29 11:49] LABS: Glucose,Whole Blood 123 mg/dL (70-110)
--- NOTE | 2024-07-29 12:29 | P.PN ---
Subjective Progress Note Date: 07/29/24 Principal diagnosis: Cardiac arrest. 07/25/2024, patient remains in the ICU, as [id number] last night the patient took a downhill course, he developed what seems to be a picture of pulmonary edema, patient did not do well with BiPAP, continued to desaturate, he was quite tachypneic, I was notified about this patient around 10:30 PM, patient was in respiratory distress, I recommended immediate intubation and mechanical ventilation. Patient was reintubated last night around 1045, he is now on assist-control rate of 22 tidal volume 500 FiO2 down to 45% he was on 100% ear lier PEEP of 5 and flow rate is 65 L/min. Patient is prop on propofol but not on norepinephrine, blood pressure is marginal. Patient did receive Lasix 40 mg IV push every 8 hours remains on Eliquis remains on Zosyn for presumptive aspiration pneumonia. His ABG earlier today showed a pO2 of 273 pCO2 37 pH of 7.43. ABG right after intubation showed a pO2 of 73 pCO2 of 60 pH of 7.23 the patient is down to 45%, PEEP is at 5, and he is on rate of 22 with tidal volume 500. WBC count today is 16.8 hemoglobin is 10, basic metabolic profile is normal BUN is 31 creatinine 1.19Current BNP level is 5760 with normal procalcitonin level of 0.22 chest x-ray is showing improving pulmonary edema chest x-ray this morning is better than the chest x-ray he had at the time of intubation On 07/26/2024, patient is basically about the same intubated and mechanically ventilated, he is on assist-control rate of 22 tidal volume 500 FiO2 50% and PEEP of 5 ABG showed a pO2 of 121 pCO2 29 pH of 7.54 hence his rate was cut down to 18 and his FiO2 cut down to 40%. Patient is on propofol at 50 mcg/kg/min he is also on norepinephrine at 0.08 mcg/kg/min IV fluids at KVO, remains on Lasix 40 mg IV push every 8 hours. Patient is also on Eliquis. His sister who is also his power of commonwealth attorney/legal guardian, requested DNR CODE STATUS. Patient is not arousable at this point since he is on propofol, but I plan to discontinue propofol, awaken the patient, and give the patient a weaning trial, I have explained to the sister his condition, and she is agreeable to proceed with trials of weaning, however if the patient is extubated and needed to be reintubated, not to reintubate and go to comfort care measures at this point. Patient will definitely be given weaning trials hopefully today once he is awake and appropriate. Chest x-ray is showing improvement in his pulmonary edema nonetheless it is not completely resolved. WBC count today is 11.1 hemoglobin is 10.1. Potassium is low at 2.8 being addressed accordingly his BUN is 28 creatinine 1.17. On 07/27/2024, he is intubated and mechanically ventilated, he is on assist- control rate of 18 tidal volume 500 FiO2 40% and PEEP of 5 ABG showed a pO2 of 82 pCO2 37 pH of 7.51. Patient was on d/c propofol and norepinephrine, IV fluids at NS at 20 mls/hr, remains on Lasix 40 mg IV push every 8 hours. Patient is also on Eliquis. He is DNR CODE STATUS. Will give the patient a weaning trial with parameters of Vt357, RR 21, MV 7.81, RSBI 56, VC 1035, NIF-15 with positive cuff leak. It was previously discussed if the patient is extubated and needed to be reintubated, not to reintubate and go to comfort care measures at this point. Chest x-ray is showing improvement in his pulmonary edema nonetheless it is not completely resolved. WBC count today is 8.4 has improved, and hemoglobin is 9.0 has decreased. Potassium is low at 3.6, his BUN is 28 creatinine 1.23. Patient was seen today, 07/27/2024, was extubated yesterday morning and subsequently placed on BiPAP. He continued to improve and in the afternoon went on nasal cannula 4 L and continues to saturate well. He is now on IV fluids at NS at 10 mls/hr, remains on Lasix 40 mg IV push every 8 hours. Patient is also on Eliquis. He is DNR CODE STATUS. It was previously discussed we are not to reintubate patient and if he decompensates he go will to comfort care measures at this point. Chest x-ray is showing improvement in his pulmonary edema nonetheless it is not completely resolved. WBC count today is 8.1, and hemoglobin is 8.5. Sodium 146, potassium 3.6, bicarb 34, BUN 27, creatinine 1.05, calcium 8.0. Progress note dated July 29, 2024. The patient is seen today in room 372. The patient is resting comfortably in the chair next to his hospital bed. He is on 4 L of oxygen. No fluids. He is awake and alert, in no distress. Current labs include a white count 10.3, hemoglobin count 9.3, hematocrit 31, and platelet count normal. Sodium 145, potassium 3.5, chlorides 105, CO2 36, BUN 28, creatinine 1.17. Glucose 123. Albumin 3.4. No chest x-ray today. Objective - Vital Signs Vital signs: Vital Signs Temp 98.0 F 07/29/24 11:29 Pulse 62 07/29/24 11:29 Resp 18 07/29/24 11:29 BP 163/69 07/29/24 11:29 Pulse Ox 96 07/29/24 11:29 FiO2 40 07/27/24 15:40 Intake & Output 07/28/24 07/29/24 07/29/24 18:59 06:59 18:59 Intake Total 300 20 10 Output Total 630 1100 Balance -330 -1080 10 Weight 96 kg Intake: IV 60 20 10 0.9 KVO @ 20 60 Invasive Line 1 20 10 Oral 240 Output: Urine 630 1100 Other: Voiding Method Indwelling Catheter Indwelling Catheter Indwelling Catheter # Bowel Movements 1 ABP, PAP, CO, CI - Last Documented Arterial Blood Pressure 156/40 - Exam No acute distress, oriented 3. No respiratory distress. Currently on 4 L. HEENT examination is grossly unremarkable. Mucous membranes are moist. No oral lesions. Neck supple. Full range of motion. No adenopathy thyromegaly or neck vein distention. Cardiovascular examination reveals regular rhythm rate. S1-S2 normal. No S3 or S4. No discernible murmur noted. Lungs reveal mostly clear breath sounds. Breath sounds are equal bilaterally. Minimal scattered rhonchi. No wheezes. Breath sounds equal. Abdomen soft bowel sounds are heard. No masses or tenderness. Extremities are intact. No cyanosis clubbing or edema. Skin is without rash or lesion. Neurologic examination is brief but nonfocal. - Labs CBC & Chem 7: 07/29/24 06:31 07/29/24 06:31 Labs: Abnormal Lab Results - Last 24 Hours (Table) 07/29/24 07/29/24 07/29/24 Range/Units 06:31 06:31 11:45 Hgb 9.3 L (13.0-17.5) gm/dL Hct 31.0 L (39.0-53.0) % MCV 68.5 L (80.0-100.0) fL MCH 20.5 L (25.0-35.0) pg MCHC 29.9 L (31.0-37.0) g/dL RDW 16.4 H (11.5-15.5) % Carbon Dioxide 36 H (22-30) mmol/L BUN 28 H (9-20) mg/dL POC Glucose (mg/dL) 123 H (70-110) mg/dL Albumin 3.4 L (3.5-5.0) g/dL Microbiology - Last 24 Hours (Table) 07/25/24 10:00 Blood Culture - Preliminary Blood Assessment and Plan Assessment: S/P [id number] cardiopulmonary arrest, recovered. Acute hypoxemic respiratory failure. Pulmonary edema, with bilateral pleural effusions, improved. Acute non-ST segment elevation myocardial infarction, status post stenting x 2 of the mid and proximal LAD. Cardiogenic shock, resolved. Acute CVA. Acute kidney injury. Rheumatoid arthritis. History of hypertension. BPH. Chronic anemia. Multiple intubations extubations, and reintubation's, with final extubation on July 28, 2024. Plan: Plan dated July 29, 2024. The patient is seen today in room 372. He is sitting in the chair next to the hospital bed. He is not on any IV fluids. He is getting nasal O2 at 4 L. He is awake and alert, no acute distress. Labs, x-rays, and all medications are reviewed. The patient's overall prognosis remains guarded. We will continue to follow. Dictation was produced using [employer] software. Please excuse any grammatical, word or spelling errors. Time with Patient: Less than 30
[2024-07-29 13:36] VITALS: BMI 27.9
--- NOTE | 2024-07-29 15:14 | P.PN ---
Subjective Progress Note Date: 07/29/24 PROGRESS NOTE The patient is a 78-year-old male who was admitted to the hospital on July 11 with cardiac arrest, severe cardiomyopathy and severe triple-vessel disease. He was evaluated by Dr. Abrams, underwent an Impella placement. His echocardiogram on presentation showed an ejection fraction 25 to 30% with anterior apical hypokinesis. On July 16 he underwent stenting of the LAD with removal of the Impella CP. He remains intubated, sedated. He is having episodes of paroxysmal atrial fibrillation with sinus bradycardia at times. He has good urine output. He is scheduled to undergo PCI of the RCA and the left circumflex today. He is on no vasopressors. He was found to have right-sided weakness suggestive of a cerebrovascular accident. Repeat echocardiogram on July 14 showed an e jection fraction of 40% while he was on the Impella. He was extubated but had to be reintubated because of respiratory distress. He has no evidence of ventricular ectopic activity. July 21: The patient remains intubated and sedated, in atrial fibrillation. He had episodes of recurrent rapid ventricle response. He is on beta-blockers, well- tolerated. He continues to be on IV amiodarone. He underwent stenting of the left circumflex and RCA yesterday. He is on no vasopressors. His urinary output is good. There is no evidence of ventricular tachycardia. July 22: The patient remains intubated he is more awake. He underwent CRISTINE guided cardioversion yesterday with yarsani of sinus mechanism. He continues to be in sinus mechanism today, his CRISTINE showed an ejection fraction of 35 to 40% with no reported segmental wall motion abnormality. His urinary output is stable. He is on no vasopressors. He has no evidence of ventricular ectopic activity. He continues to be on IV heparin and IV amiodarone. He is following commands. July 23: The patient remains intubated, attempt to wean yesterday were unsuccessful. He continues to be in sinus mechanism with sinus bradycardia but no pauses. He is sedated at this time. His urinary output has been stable. He had no evidence of ventricular ectopic activity. He has been started on oral amiodarone and on Eliquis. July 24: The patient is extubated, alert and oriented. Complaining of dryness in his eyes. He continues to be in sinus mechanism. He has no evidence of ventricular ectopic activity or recurrent atrial fibrillation. He denies any chest discomfort or significant dyspnea. He denies any dizziness or palpitations. July 25: The patient had worsening respiratory status yesterday night with progressive dyspnea and hypoxemia requiring BiPAP initially and subsequently intubated because of evidence of acute pulmonary edema. He continues to be in sinus mechanism on no vasopressors. His urinary output has been stable. He is on IV Lasix. There is no evidence of recurrent atrial fibrillation or evidence of ventricular tachyarrhythmia. July 26: The patient remains intubated, he is back in sinus mechanism. His urinary output is stable. He is on a low-dose of norepinephrine. He has no ventricular ectopic activity. He had sinus bradycardia earlier yesterday prior to converting to atrial fibrillation, he is in sinus bradycardia at this time. 07/27 Patient seen and examined. Patient is maintained on IV Lasix 40 mg IV 3 times a day. Creatinine stable at 1.2. Good urine output. Denies any chest pain or pressure. He was extubated was on BiPAP however currently tolerating nasal cannula. He is bradycardic with heart rates in the 40s however is also maintained on Precedex. 07/28 patient seen and examined. Hemoglobin 8.5, creatinine 1.0, sodium 146. Blood pressure well controlled with systolics 100s to 120s. Currently on 3 L nasal cannula. Denies any chest pain or pressure. He was briefly on BiPAP however has not required. He is receiving IV Lasix 40 mg IV every 8 hours with marginal urine output however has not been eating much and is getting mildly hypernatremic with sodium 146. 07/29 Patient seen and examined. Patient is been transferred from ICU to the cardiac stepdown unit. Blood pressure 163/69, heart rate in the 60s, pulse ox 96% on 4 L nasal cannula. Repeat blood work reveals hemoglobin 9.3, BUN 28 creatinine 1.17, potassium 3.5. Patient is resting comfortably in bed. He has been maintained on IV Lasix 40 mg every 8 hours. He does have a negative fluid balance of 1400 mL. Patient still has some confusion and also complaining of visual changes. His breathing is okay. PHYSICAL EXAMINATION: LUNGS: Clear to auscultation HEART: Regular rate and rhythm, S1, S2. No S3. Systolic ejection murmur ABDOMEN: Soft, obese, no organomegaly EXTREMETIES: Trace edema, IMPRESSION: 1. Cardiac arrest with severe cardiomyopathy and cardiogenic shock status post Impella 2. Severe triple-vessel disease, status post stenting of the LAD and stenting of the left circumflex and RCA on July 20 3. Paroxysmal atrial fibrillation alternating with sinus bradycardia, back in sinus bradycardia at this time, post cardioversion 4. Evidence suggests right sided weakness related to a cerebrovascular accident 5. Respiratory failure with reintubation,, patient had to be reintubated because flash pulmonary edema 6. Acute renal injury, resolved 7. History of hypertension 8. Bradycardia, asymptomatic 9. Chronic systolic heart failure PLAN: Continue with heart failure regimen. Continue with IV diuretics for now however is not eating much, decreased oral intake and mild hypernatremia. Monitor closely. Patient may require LifeVest at the time of discharge Consider decreasing IV Lasix tomorrow Nurse practitioner note has been reviewed, I agree with documented findings and plan of care. Patient was seen and examined. Objective - Vital Signs Vital signs: Vital Signs Temp 98.0 F 07/29/24 11:29 Pulse 62 07/29/24 11:29 Resp 18 07/29/24 11:29 BP 163/69 07/29/24 11:29 Pulse Ox 96 07/29/24 11:29 FiO2 40 07/27/24 15:40 Intake & Output 07/28/24 07/29/24 07/29/24 18:59 06:59 18:59 Intake Total 300 20 10 Output Total 630 1100 Balance -330 -1080 10 Weight 96 kg Intake: IV 60 20 10 0.9 KVO @ 20 60 Invasive Line 1 20 10 Oral 240 Output: Urine 630 1100 Other: Voiding Method Indwelling Catheter Indwelling Catheter Indwelling Catheter # Bowel Movements 1 ABP, PAP, CO, CI - Last Documented Arterial Blood Pressure 156/40 - Labs CBC & Chem 7: 07/29/24 06:31 07/29/24 06:31 Labs: Abnormal Lab Results - Last 24 Hours (Table) 07/29/24 07/29/24 07/29/24 Range/Units 06:31 06:31 11:45 Hgb 9.3 L (13.0-17.5) gm/dL Hct 31.0 L (39.0-53.0) % MCV 68.5 L (80.0-100.0) fL MCH 20.5 L (25.0-35.0) pg MCHC 29.9 L (31.0-37.0) g/dL RDW 16.4 H (11.5-15.5) % Carbon Dioxide 36 H (22-30) mmol/L BUN 28 H (9-20) mg/dL POC Glucose (mg/dL) 123 H (70-110) mg/dL Albumin 3.4 L (3.5-5.0) g/dL Microbiology - Last 24 Hours (Table) 07/25/24 10:00 Blood Culture - Preliminary Blood
--- NOTE | 2024-07-29 15:39 | P.PN ---
Subjective Progress Note Date: 07/29/24 The patient is known to me during this admission but was under the care by Dr. Randall last week. Please refer to Dr. Randall's notes for further details. Patient is accompanied by his sister and that she feels he has good days and bad days but he does have deficits since a stroke in which his right side is weak but he has some movement on the right side. Otherwise no worsening in his neurological condition. Objective - Vital Signs Vital signs: Vital Signs Temp 98.0 F 07/29/24 11:29 Pulse 62 07/29/24 14:00 Resp 18 07/29/24 14:00 BP 163/69 07/29/24 11:29 Pulse Ox 96 07/29/24 11:29 FiO2 40 07/27/24 15:40 Intake & Output 07/28/24 07/29/24 07/29/24 18:59 06:59 18:59 Intake Total 300 20 20 Output Total 630 1100 Balance -330 -1080 20 Weight 96 kg 96 kg Intake: IV 60 20 20 0.9 KVO @ 20 60 Invasive Line 1 20 20 Oral 240 Output: Urine 630 1100 Other: Voiding Method Indwelling Catheter Indwelling Catheter Indwelling Catheter # Bowel Movements 1 ABP, PAP, CO, CI - Last Documented Arterial Blood Pressure 156/40 - Exam General: Sitting in recliner chair and is not in acute distress. Neuro: The patient is awake alert oriented to self and place. He correctly stated the current month but stated the year is 2019. He is following simple commands. He has some neglect over the right side. Pupils are round equal reactive to light. Patient has right lower facial weakness that is mild. No dysarthria. The motor the strength on the left side seems normal but on the right upper extremity upon asking him to pinpoint that his right upper extremity then he pointed to my arm and he was next neglect and it. But he is able to squeeze over the right hand. He had some movement in the right lower extremity Some of the work-up during this hospital visit consisted of: Ammonia is 18 Vitamin B12: 414 Folate: 12.5 TSH: 7.630, free T4 0.80 Lipid panel: TG 150, Cholestrol 130, LDL [address] of the head is reported as no acute finding. I reviewed the CT and there is a lot of artifact it is hard to appreciate any acute or subacute ischemia. I felt there is hypoattenuation on the left frontal parietal region but again it is hard to assess. Carotid duplex is reported as atherosclerotic plaque in present with may have mild to moderate internal carotid artery narrowing on the left just above 50. Unable to visualize right vertebral artery. 2D echo was reported as severe cardiomyopathy with wall motion abnormality including apical hypokinesis. Ejection fraction of 25 to 30%. Repeat CT head on 07/15/2024: reported as no acute intracranial bleed. Focal region of low-attenuation within the left parietal lobe which may represent an age indeterminate infarct. Consider further evaluation with MRI. I also personally reviewed the CT and felt the patient has subacute infarct in the left parietal region. Agree with Dr. Arteaga. MOst recent CT of the head is reported as no acute intracranial process. CT head shows hypodensity over the left frontal parietal region. I personally reviewed CT head agree with the findings. CT cervical spine is reported as no acute osseous abnormality cervical spine. - Labs CBC & Chem 7: 07/29/24 06:31 07/29/24 06:31 Labs: Abnormal Lab Results - Last 24 Hours (Table) 07/29/24 07/29/24 07/29/24 Range/Units 06:31 06:31 11:45 Hgb 9.3 L (13.0-17.5) gm/dL Hct 31.0 L (39.0-53.0) % MCV 68.5 L (80.0-100.0) fL MCH 20.5 L (25.0-35.0) pg MCHC 29.9 L (31.0-37.0) g/dL RDW 16.4 H (11.5-15.5) % Carbon Dioxide 36 H (22-30) mmol/L BUN 28 H (9-20) mg/dL POC Glucose (mg/dL) 123 H (70-110) mg/dL Albumin 3.4 L (3.5-5.0) g/dL Microbiology - Last 24 Hours (Table) 07/25/24 10:00 Blood Culture - Preliminary Blood Assessment and Plan Assessment: This is a 78-year-old gentleman having shortness of breath and presents to our facility on 07/11/2024 because out of the hospital cardiopulmonary arrest lasting for 5 minutes. Found to have severe underlying vessel coronary artery disease, ischemic cardiomyopathy with ejection fraction of 15 to 20% and had Impella placed on 07/12/2024. First his right side weakness may be began on 07/13/2024 but it was hard to assess because he was on sedation. Patient is on IV heparin for his cardiac issues. Subacute ischemic stroke over the bilateral hemisphere (left > right) and developed symptoms with right hemiparesis possibly on the 07/13/2024. Seems cardioembolic due to cardiopulmonary arrest and was notied to have paroxysmal atrial fibrillation. Has acute right hemiparesis. Paroxysmal atrial fibrillation on eliquis Underlying history of severe multivessel coronary artery disease Ischemic cardiomyopathy with ejection fraction of 15 to 20% status post Impella on 07/12/2024 Out of the hospital cardiopulmonary arrest lasting for 5 minutes on 07/11/2024 Acute non-STEMI Acute kidney injury---resolved Hypertension Rheumatoid arthritis Benign prostate hyperplasia Plan: Patient has developed paroxysmal atrial fibrillation. Patient started on Eliquis 5 mg twice daily. Per Dr. Padilla, patient is on Plavix 75 mg and aspirin 81 mg and he discussed with Dr. Vázquez, and patient needs to be on all 3 agents for 7 days, and after that we will stop aspirin and will be continued on Eliquis and Plavix. But it seems patient is on ASA 81mg daily and Eliquis 5mg bid and unsure if no Plavix due to interaction with Eliquis. MRI of the brain revealed acute left periventricular basal ganglion ischemic type changes. Some additional punctate ischemic changes are within the deep white matter of the left frontal lobe, right occipital lobe and the right centr um semiovale. Chronic appearing periventricular white matter hyperintensity. Differential diagnosis includes but not limited to microvascular ischemic change, vasculitis, multiple sclerosis. PT OT are consulted Cardiothoracic team is consulted for CABG evaluation Will defer the rest of the medical management to primary and other specialist For DVT prophylaxis the patient is on Eliquis Upon discharge, the patient to follow-up with neurologist as outpatient within 2-3 weeks. The plan is discussed with patient and his sister. Time with Patient: Less than 30
[2024-07-29 16:13] LABS: Glucose,Whole Blood 104 mg/dL (70-110)
[2024-07-29 20:11] LABS: Glucose,Whole Blood 143 mg/dL (70-110)
[2024-07-29] MEDS: POTASSIUM CHLORIDE ER 20 MEQ TAB.ER PO SCH (20:37)
[2024-07-29] MEDS: ZINC OXIDE PASTE (Z-GUARD) 1 APPLIC TOPICAL PRN (23:26)
[2024-07-30 06:23] LABS: Glucose,Whole Blood 98 mg/dL (70-110)
[2024-07-30] MEDS: PANTOPRAZOLE 40 MG TABLET PO SCH (07:41)
[2024-07-30 08:13] LABS: Anisocytosis Slight; Basophils # (A) 0.1 k/uL (0-0.2); Basophils % (A) 1 %; Eosinophils # (A) 0.3 k/uL (0-0.7); Eosinophils % (A) 3 %; HGB 10.3 gm/dL (13.0-17.5); Hypochromasia Marked; Lymphocytes # (A) 2.2 k/uL (1.0-4.8); Lymphocytes % (A) 23 %; MCH 20.3 pg (25.0-35.0); MCHC 29.5 g/dL (31.0-37.0); MCV 68.8 fL (80.0-100.0); Mean Platelet Volume 7.3; Microcytosis Marked; Monocytes # (A) 0.5 k/uL (0-1.0); Monocytes % (A) 5 %; Neutrophils # (A) 6.2 k/uL (1.3-7.7); Neutrophils % (A) 66 %; Platelet Count 475 k/uL (150-450); RBC 5.08 m/uL (4.30-5.90); RDW 16.4 % (11.5-15.5); WBC 9.5 k/uL (3.8-10.6)
[2024-07-30 08:22] LABS: ALT 24 U/L (4-49); AST 31 U/L (17-59); African American GFR (CKD) 75 (>60 ml/min/1.73 sqM); Albumin 3.9 g/dL (3.5-5.0); Alkaline Phosphatase 85 U/L (38-126); Anion Gap 8 mmol/L; Blood Urea Nitrogen 27 mg/dL (9-20); Carbon Dioxide 34 mmol/L (22-30); Chloride 104 mmol/L (98-107); Glucose 98 mg/dL (74-99); Magnesium 2.3 mg/dL (1.6-2.3); Non-African American GFR(CKD) 65 (>60 ml/min/1.73 sqM); Potassium 3.9 mmol/L (3.5-5.1); Sodium 146 mmol/L (137-145); Total Protein 7.7 g/dL (6.3-8.2)
[2024-07-30 11:39] LABS: Glucose,Whole Blood 114 mg/dL (70-110)
--- NOTE | 2024-07-30 13:39 | P.PN ---
Subjective Progress Note Date: 07/30/24 Principal diagnosis: Cardiac arrest. 07/25/2024, patient remains in the ICU, as [id number] last night the patient took a downhill course, he developed what seems to be a picture of pulmonary edema, patient did not do well with BiPAP, continued to desaturate, he was quite tachypneic, I was notified about this patient around 10:30 PM, patient was in respiratory distress, I recommended immediate intubation and mechanical ventilation. Patient was reintubated last night around 1045, he is now on assist-control rate of 22 tidal volume 500 FiO2 down to 45% he was on 100% ear lier PEEP of 5 and flow rate is 65 L/min. Patient is prop on propofol but not on norepinephrine, blood pressure is marginal. Patient did receive Lasix 40 mg IV push every 8 hours remains on Eliquis remains on Zosyn for presumptive aspiration pneumonia. His ABG earlier today showed a pO2 of 273 pCO2 37 pH of 7.43. ABG right after intubation showed a pO2 of 73 pCO2 of 60 pH of 7.23 the patient is down to 45%, PEEP is at 5, and he is on rate of 22 with tidal volume 500. WBC count today is 16.8 hemoglobin is 10, basic metabolic profile is normal BUN is 31 creatinine 1.19Current BNP level is 5760 with normal procalcitonin level of 0.22 chest x-ray is showing improving pulmonary edema chest x-ray this morning is better than the chest x-ray he had at the time of intubation On 07/26/2024, patient is basically about the same intubated and mechanically ventilated, he is on assist-control rate of 22 tidal volume 500 FiO2 50% and PEEP of 5 ABG showed a pO2 of 121 pCO2 29 pH of 7.54 hence his rate was cut down to 18 and his FiO2 cut down to 40%. Patient is on propofol at 50 mcg/kg/min he is also on norepinephrine at 0.08 mcg/kg/min IV fluids at KVO, remains on Lasix 40 mg IV push every 8 hours. Patient is also on Eliquis. His sister who is also his power of continuous drier operator/legal guardian, requested DNR CODE STATUS. Patient is not arousable at this point since he is on propofol, but I plan to discontinue propofol, awaken the patient, and give the patient a weaning trial, I have explained to the sister his condition, and she is agreeable to proceed with trials of weaning, however if the patient is extubated and needed to be reintubated, not to reintubate and go to comfort care measures at this point. Patient will definitely be given weaning trials hopefully today once he is awake and appropriate. Chest x-ray is showing improvement in his pulmonary edema nonetheless it is not completely resolved. WBC count today is 11.1 hemoglobin is 10.1. Potassium is low at 2.8 being addressed accordingly his BUN is 28 creatinine 1.17. On 07/27/2024, he is intubated and mechanically ventilated, he is on assist- control rate of 18 tidal volume 500 FiO2 40% and PEEP of 5 ABG showed a pO2 of 82 pCO2 37 pH of 7.51. Patient was on d/c propofol and norepinephrine, IV fluids at NS at 20 mls/hr, remains on Lasix 40 mg IV push every 8 hours. Patient is also on Eliquis. He is DNR CODE STATUS. Will give the patient a weaning trial with parameters of Vt357, RR 21, MV 7.81, RSBI 56, VC 1035, NIF-15 with positive cuff leak. It was previously discussed if the patient is extubated and needed to be reintubated, not to reintubate and go to comfort care measures at this point. Chest x-ray is showing improvement in his pulmonary edema nonetheless it is not completely resolved. WBC count today is 8.4 has improved, and hemoglobin is 9.0 has decreased. Potassium is low at 3.6, his BUN is 28 creatinine 1.23. Patient was seen today, 07/27/2024, was extubated yesterday morning and subsequently placed on BiPAP. He continued to improve and in the afternoon went on nasal cannula 4 L and continues to saturate well. He is now on IV fluids at NS at 10 mls/hr, remains on Lasix 40 mg IV push every 8 hours. Patient is also on Eliquis. He is DNR CODE STATUS. It was previously discussed we are not to reintubate patient and if he decompensates he go will to comfort care measures at this point. Chest x-ray is showing improvement in his pulmonary edema nonetheless it is not completely resolved. WBC count today is 8.1, and hemoglobin is 8.5. Sodium 146, potassium 3.6, bicarb 34, BUN 27, creatinine 1.05, calcium 8.0. Progress note dated July 29, 2024. The patient is seen today in room 372. The patient is resting comfortably in the chair next to his hospital bed. He is on 4 L of oxygen. No fluids. He is awake and alert, in no distress. Current labs include a white count 10.3, hemoglobin count 9.3, hematocrit 31, and platelet count normal. Sodium 145, potassium 3.5, chlorides 105, CO2 36, BUN 28, creatinine 1.17. Glucose 123. Albumin 3.4. No chest x-ray today. Progress note dated July 30, 2024. The patient is seen today in room 372. The patient is doing reasonably well. Family and friends are in the room with the patient. The patient continues on oxygen, 4 L. No IV fluids. The patient is scheduled have a barium swallow later today. The family mentions that the patient may be discharged to a rehab facility. Current labs include a white count 9.5, hemoglobin 10.3, hematocrit 35, and a platelet count 475,000. Sodium 146, potassium 3.9, chlorides 104, CO2 34, BUN 27, creatinine 1.09. All cultures are negative. No recent chest x-ray to review. Objective - Vital Signs Vital signs: Vital Signs Temp 97.6 F 07/30/24 10:47 Pulse 61 07/30/24 13:22 Resp 17 07/30/24 10:47 BP 143/60 07/30/24 10:47 Pulse Ox 98 07/30/24 10:47 FiO2 40 07/27/24 15:40 Intake & Output 07/29/24 07/30/24 07/30/24 18:59 06:59 18:59 Intake Total 20 20 250 Output Total 1400 950 265 Balance -1380 -930 -15 Weight 96 kg Intake: IV 20 20 10 Invasive Line 1 20 20 10 Oral 240 Output: Urine 1400 950 265 Other: Voiding Method Indwelling Catheter Indwelling Catheter Indwelling Catheter ABP, PAP, CO, CI - Last Documented Arterial Blood Pressure 156/40 - Exam No acute distress, oriented 3. No respiratory distress. Currently on 4 L. HEENT examination is grossly unremarkable. Mucous membranes are moist. No oral lesions. Neck supple. Full range of motion. No adenopathy thyromegaly or neck vein distention. Cardiovascular examination reveals regular rhythm rate. S1-S2 normal. No S3 or S4. No discernible murmur noted. Lungs reveal mostly clear breath sounds. Breath sounds are equal bilaterally. Minimal scattered rhonchi. No wheezes. Breath sounds equal. Abdomen soft bowel sounds are heard. No masses or tenderness. Extremities are intact. No cyanosis clubbing or edema. Skin is without rash or lesion. Neurologic examination is brief but nonfocal. - Labs CBC & Chem 7: 07/30/24 07:34 07/30/24 07:34 Labs: Abnormal Lab Results - Last 24 Hours (Table) 07/29/24 07/30/24 07/30/24 Range/Units 20:10 07:34 07:34 Hgb 10.3 L (13.0-17.5) gm/dL Hct 35.0 L (39.0-53.0) % MCV 68.8 L (80.0-100.0) fL MCH 20.3 L (25.0-35.0) pg MCHC 29.5 L (31.0-37.0) g/dL RDW 16.4 H (11.5-15.5) % Plt Count 475 H (150-450) k/uL Sodium 146 H (137-145) mmol/L Carbon Dioxide 34 H (22-30) mmol/L BUN 27 H (9-20) mg/dL POC Glucose (mg/dL) 143 H (70-110) mg/dL 07/30/24 Range/Units 11:37 Hgb (13.0-17.5) gm/dL Hct (39.0-53.0) % MCV (80.0-100.0) fL MCH (25.0-35.0) pg MCHC (31.0-37.0) g/dL RDW (11.5-15.5) % Plt Count (150-450) k/uL Sodium (137-145) mmol/L Carbon Dioxide (22-30) mmol/L BUN (9-20) mg/dL POC Glucose (mg/dL) 114 H (70-110) mg/dL Assessment and Plan Assessment: S/P [id number] cardiopulmonary arrest, recovered. Acute hypoxemic respiratory failure. Pulmonary edema, with bilateral pleural effusions, improved. Acute non-ST segment elevation myocardial infarction, status post stenting x 2 of the mid and proximal LAD. Cardiogenic shock, resolved. Acute CVA. Acute kidney injury. Rheumatoid arthritis. History of hypertension. BPH. Chronic anemia. Multiple intubations extubations, and reintubation's, with final extubation on July 28, 2024. Plan: Plan dated July 29, 2024. The patient is seen today in room 372. He is sitting in the chair next to the hospital bed. He is not on any IV fluids. He is getting nasal O2 at 4 L. He is awake and alert, no acute distress. Labs, x-rays, and all medications are reviewed. The patient's overall prognosis remains guarded. We will continue to follow. Dictation was produced using [employer] software. Please excuse any grammatical, word or spelling errors. Plan dated July 30, 2024. The patient is seen today in room 372. He continues on 4 L of oxygen. He is not receiving any IV fluids. Labs, x-rays, and all medications are reviewed. The patient is scheduled for a barium swallow later today. The family members in the room state that the patient is going to be discharged to a rehab facil [facility]. We will continue to follow make recommendations. Overall prognosis remains guarded. Dictation was produced using [employer] software. Please excuse any grammatical, word or spelling errors. Time with Patient: Less than 30
--- NOTE | 2024-07-30 14:31 | P.PN ---
Subjective Progress Note Date: 07/30/24 PROGRESS NOTE The patient is a 78-year-old male who was admitted to the hospital on July 11 with cardiac arrest, severe cardiomyopathy and severe triple-vessel disease. He was evaluated by Dr. Abrams, underwent an Impella placement. His echocardiogram on presentation showed an ejection fraction 25 to 30% with anterior apical hypokinesis. On July 16 he underwent stenting of the LAD with removal of the Impella CP. He remains intubated, sedated. He is having episodes of paroxysmal atrial fibrillation with sinus bradycardia at times. He has good urine output. He is scheduled to undergo PCI of the RCA and the left circumflex today. He is on no vasopressors. He was found to have right-sided weakness suggestive of a cerebrovascular accident. Repeat echocardiogram on July 14 showed an e jection fraction of 40% while he was on the Impella. He was extubated but had to be reintubated because of respiratory distress. He has no evidence of ventricular ectopic activity. July 21: The patient remains intubated and sedated, in atrial fibrillation. He had episodes of recurrent rapid ventricle response. He is on beta-blockers, well- tolerated. He continues to be on IV amiodarone. He underwent stenting of the left circumflex and RCA yesterday. He is on no vasopressors. His urinary output is good. There is no evidence of ventricular tachycardia. July 22: The patient remains intubated he is more awake. He underwent CRISTINE guided cardioversion yesterday with [facility] of sinus mechanism. He continues to be in sinus mechanism today, his CRISTINE showed an ejection fraction of 35 to 40% with no reported segmental wall motion abnormality. His urinary output is stable. He is on no vasopressors. He has no evidence of ventricular ectopic activity. He continues to be on IV heparin and IV amiodarone. He is following commands. July 23: The patient remains intubated, attempt to wean yesterday were unsuccessful. He continues to be in sinus mechanism with sinus bradycardia but no pauses. He is sedated at this time. His urinary output has been stable. He had no evidence of ventricular ectopic activity. He has been started on oral amiodarone and on Eliquis. July 24: The patient is extubated, alert and oriented. Complaining of dryness in his eyes. He continues to be in sinus mechanism. He has no evidence of ventricular ectopic activity or recurrent atrial fibrillation. He denies any chest discomfort or significant dyspnea. He denies any dizziness or palpitations. July 25: The patient had worsening respiratory status yesterday night with progressive dyspnea and hypoxemia requiring BiPAP initially and subsequently intubated because of evidence of acute pulmonary edema. He continues to be in sinus mechanism on no vasopressors. His urinary output has been stable. He is on IV Lasix. There is no evidence of recurrent atrial fibrillation or evidence of ventricular tachyarrhythmia. July 26: The patient remains intubated, he is back in sinus mechanism. His urinary output is stable. He is on a low-dose of norepinephrine. He has no ventricular ectopic activity. He had sinus bradycardia earlier yesterday prior to converting to atrial fibrillation, he is in sinus bradycardia at this time. 07/27 Patient seen and examined. Patient is maintained on IV Lasix 40 mg IV 3 times a day. Creatinine stable at 1.2. Good urine output. Denies any chest pain or pressure. He was extubated was on BiPAP however currently tolerating nasal cannula. He is bradycardic with heart rates in the 40s however is also maintained on Precedex. 07/28 patient seen and examined. Hemoglobin 8.5, creatinine 1.0, sodium 146. Blood pressure well controlled with systolics 100s to 120s. Currently on 3 L nasal cannula. Denies any chest pain or pressure. He was briefly on BiPAP however has not required. He is receiving IV Lasix 40 mg IV every 8 hours with marginal urine output however has not been eating much and is getting mildly hypernatremic with sodium 146. 07/29 Patient seen and examined. Patient is been transferred from ICU to the cardiac stepdown unit. Blood pressure 163/69, heart rate in the 60s, pulse ox 96% on 4 L nasal cannula. Repeat blood work reveals hemoglobin 9.3, BUN 28 creatinine 1.17, potassium 3.5. Patient is resting comfortably in bed. He has been maintained on IV Lasix 40 mg every 8 hours. He does have a negative fluid balance of 1400 mL. Patient still has some confusion and also complaining of visual changes. His breathing is okay. 07/30/2024 Patient seen and examined. Blood pressure 143/60, heart rate in the 60s, pulse ox 98% on 4 L nasal cannula. Repeat blood work reveals hemoglobin 10.3. BUN 27 creatinine 1.09. Patient has been maintained on IV Lasix 40 mg every 8 hours. Patient was noted to have some improvement of his EF during CRISTINE. Will plan to obtain a limited echocardiogram to evaluate his EF. If its greater than 35%, we will not require LifeVest. PHYSICAL EXAMINATION: LUNGS: Clear to auscultation HEART: Regular rate and rhythm, S1, S2. No S3. Systolic ejection murmur ABDOMEN: Soft, obese, no organomegaly EXTREMETIES: Trace edema, IMPRESSION: 1. Cardiac arrest with severe cardiomyopathy and cardiogenic shock status post Impella 2. Severe triple-vessel disease, status post stenting of the LAD and stenting of the left circumflex and RCA on July 20 3. Paroxysmal atrial fibrillation alternating with sinus bradycardia, back in sinus bradycardia at this time, post cardioversion 4. Evidence suggests right sided weakness related to a cerebrovascular accident 5. Respiratory failure with reintubation,, patient had to be reintubated jerzy use flash pulmonary edema 6. Acute renal injury, resolved 7. History of hypertension 8. Bradycardia, asymptomatic 9. Chronic systolic heart failure PLAN: Continue with heart failure regimen. Continue with IV diuretics for now Monitor LETY, daily weights, electrolytes and renal function Obtain limited echocardiogram to evaluate EF and determine if LifeVest is necessary. If EF is greater than 35%, no LifeVest will be ordered. Nurse practitioner note has been reviewed, I agree with documented findings and plan of care. Patient was seen and examined. Objective - Vital Signs Vital signs: Vital Signs Temp 97.6 F 07/30/24 10:47 Pulse 61 07/30/24 10:47 Resp 17 07/30/24 10:47 BP 143/60 07/30/24 10:47 Pulse Ox 98 07/30/24 10:47 FiO2 40 07/27/24 15:40 Intake & Output 07/29/24 07/30/24 07/30/24 18:59 06:59 18:59 Intake Total 20 20 250 Output Total 1400 950 265 Balance -1380 -930 -15 Weight 96 kg Intake: IV 20 20 10 Invasive Line 1 20 20 10 Oral 240 Output: Urine 1400 950 265 Other: Voiding Method Indwelling Catheter Indwelling Catheter Indwelling Catheter ABP, PAP, CO, CI - Last Documented Arterial Blood Pressure 156/40 - Labs CBC & Chem 7: 07/30/24 07:34 07/30/24 07:34 Labs: Abnormal Lab Results - Last 24 Hours (Table) 07/29/24 07/30/24 07/30/24 Range/Units 20:10 07:34 07:34 Hgb 10.3 L (13.0-17.5) gm/dL Hct 35.0 L (39.0-53.0) % MCV 68.8 L (80.0-100.0) fL MCH 20.3 L (25.0-35.0) pg MCHC 29.5 L (31.0-37.0) g/dL RDW 16.4 H (11.5-15.5) % Plt Count 475 H (150-450) k/uL Sodium 146 H (137-145) mmol/L Carbon Dioxide 34 H (22-30) mmol/L BUN 27 H (9-20) mg/dL POC Glucose (mg/dL) 143 H (70-110) mg/dL 07/30/24 Range/Units 11:37 Hgb (13.0-17.5) gm/dL Hct (39.0-53.0) % MCV (80.0-100.0) fL MCH (25.0-35.0) pg MCHC (31.0-37.0) g/dL RDW (11.5-15.5) % Plt Count (150-450) k/uL Sodium (137-145) mmol/L Carbon Dioxide (22-30) mmol/L BUN (9-20) mg/dL POC Glucose (mg/dL) 114 H (70-110) mg/dL
[2024-07-30 16:52] LABS: Glucose,Whole Blood 109 mg/dL (70-110)
--- NOTE | 2024-07-30 17:21 | P.PN ---
Subjective Progress Note Date: 07/30/24 78-year-old male with PMH of rheumatoid arthritis, hypertension and BPH was brought to the emergency department via EMS for cardiopulmonary arrest. Recently admitted from 05/13-05/15 for type II DE slightly with elevated troponins likely secondary to COVID-19 pneumonitis, Echo at that time showed LVEF of 55% and moderate pulmonary hypertension. His initial laboratory evaluation shows WBC of 19.7, RBC 6.95, MCV 74.8, APTT 39.7, bicarb 13, glu 313. Mag 2.6. BNP 2770. Trop 0.588 up to 21.1. Lactic acid 3.2. TSH 7.63, FT4 0.8. Procal 2.82. ABG pH 7.01, pCO2 91. COVID, RSV, Flu neg. CXR showed diffuse patchy infiltrate with groundglass opacities and bilateral pleural effusion. Brain CT showed no acute intracranial process. Chest CTA is negative for pulmonary embolism and patchy opacities throughout both lungs with small bilateral pleural effusions. EKG showed sinus bradycardia with a RBBB and T wave inversions in anteroseptal and lateral leads. Echocardiogram showed LVEF of 25 to 30% and ischemic car diomyopathy with apical hypokinesis. Intubated and transferred to ICU. Started on heparin drip. Underwent cardiac cath on 07/12 showing extremely calcified right and left coronary system with critical triple-vessel CAD, severely elevated left-sided filling pressure and successful placement of Impella CP in the LV. CT surgery consulted, ultimately would like patient to recover from his acute events to optimize surgical outcome. Noted R hemiparesis with inadequate neurologic recovery from a sedation holiday on 07/15, Neurology consulted, CT brain on 07/15 showed concern for suspected left parietal subacute CVA. CT brain was repeated again on 07/17 which at this time showed no acute intracranial p rocess. Patient underwent successful stenting to mid and proximal LAD on 07/17 with Impella removal. Extubated and re-intubated on 07/18. Underwent successful PCI OM1 of left circumflex and RCA on 07/20. Complicated with A-Fib RVR requiring CRISTINE and cardioversion on 07/21. Extubated on 07/23 and re-intubated for flash pulmonary edema. MRI brain showed acute left periventricular basal ganglion ischemic type changes, punctate ischemic changes of the left frontal and right occipital lobe. Extubated 07/26. 07/30 Patient was seen and examined. CBC and CMP significant for Hg 10.3, Hct 35, MCV 68.8, Plt 475, Na 146, bicarb 34, BUN 27. Receiving Lasix 40 mg IV TID. Negative 1405 cc fluid balance. Repeat Echo ordered by Cardio to decide on LifeVest. General: NAD Derm: warm, dry Head: atraumatic, normocephalic, symmetric Eyes: EOMI, no lid lag, anicteric sclera Mouth: no lip lesion, mucus membranes moist Cardiovascular: S1S2 reg, no murmur Lungs: Rhonchi bilateral, no accessory muscle use Ext: no gross muscle atrophy, no edema, no contractures Neuro: RUE 1-2/5, RLE 2/5 strength. CHAY and LLE 5/5 strength Psych: AO x 1-2 Based on my assessment of this patient, this patient meets a high complexity level of care. Out of the hospital cardiopulmonary arrest currently ventilator dependent: Pulm onary to attempt weaning trial. If extubated, patient is not to be re-intubated. Pulmonary on board. Antibiotics discontinued. NSTEMI status post stents to LAD, OM1 branch of LCx and mid RCA: ASA 81 mg PO QD. Lipitor 40 mg PO QHS. Brilinta 90 mg PO BID. Cardiogenic Shock status post Impella (07/12-07/17) and pressors Acute systolic CHF exacerbation with ejection fraction of 25 to 30%: Lasix 40 mg IV TID. Strict intake and outtake. Daily weights. Monitor renal function while on IV lasix. Farxiga 10 mg PO QD. Metoprolol 25 mg PO BID. Entresto 24-26 mg PO BID. Aldactone 25 mg PO QD. Acute encephalopathy, likely anoxic brain injury with concerns of Subacute left parietal CVA: ASA, Lipitor, Eliquis and Brilinta as above. Paroxysmal A-fib with the RVR, now in sinus rhythm, status post cardioversion: Amiodarone 200 mg PO QD. Metoprolol as above. Eliquis 5 mg PO BID. Hypertension: Metoprolol, Entresto, Aldactone as above. Euthyroid sick syndrome secondary above: Outpatient monitoring. Microcytic anemia: Transfuse if Hg < 7. History of COVID-19 pneumonitis Resolved: Bandemia, AG metabolic acidosis, Lactic acidosis, HyperMag CODE STATUS: NO CODE. DVT Prophylaxis: Eliquis 5 mg PO BID. GI Prophylaxis: Protonix 40 mg IV QD. Designated medical POA if patient is not able to make medical decisions for themselves: Sister I have reviewed the following cisco consultant notes: Pulmonary, Cardiology, Neurology I have reviewed the results of the following tests: As above. I have ordered the following tests: As above. I have discussed the care of this patient with the following independent historian: STEPHANIE I have independently interpreted the following test below: I have discussed the management of this patient with the following physician: Objective - Vital Signs Vital signs: Vital Signs Temp 97.5 F L 07/30/24 16:01 Pulse 60 07/30/24 16:01 Resp 16 07/30/24 16:01 BP 116/64 07/30/24 16:01 Pulse Ox 98 07/30/24 16:01 FiO2 40 07/27/24 15:40 Intake & Output 07/29/24 07/30/24 07/30/24 18:59 06:59 18:59 Intake Total 20 20 368 Output Total 1400 950 265 Balance -1380 -930 103 Weight 96 kg Intake: IV 20 20 10 Invasive Line 1 20 20 10 Oral 358 Output: Urine 1400 950 265 Other: Voiding Method Indwelling Catheter Indwelling Catheter Indwelling Catheter ABP, PAP, CO, CI - Last Documented Arterial Blood Pressure 156/40 - Labs CBC & Chem 7: 07/30/24 07:34 07/30/24 07:34 Labs: Abnormal Lab Results - Last 24 Hours (Table) 07/29/24 07/30/24 07/30/24 Range/Units 20:10 07:34 07:34 Hgb 10.3 L (13.0-17.5) gm/dL Hct 35.0 L (39.0-53.0) % MCV 68.8 L (80.0-100.0) fL MCH 20.3 L (25.0-35.0) pg MCHC 29.5 L (31.0-37.0) g/dL RDW 16.4 H (11.5-15.5) % Plt Count 475 H (150-450) k/uL Sodium 146 H (137-145) mmol/L Carbon Dioxide 34 H (22-30) mmol/L BUN 27 H (9-20) mg/dL POC Glucose (mg/dL) 143 H (70-110) mg/dL 07/30/24 Range/Units 11:37 Hgb (13.0-17.5) gm/dL Hct (39.0-53.0) % MCV (80.0-100.0) fL MCH (25.0-35.0) pg MCHC (31.0-37.0) g/dL RDW (11.5-15.5) % Plt Count (150-450) k/uL Sodium (137-145) mmol/L Carbon Dioxide (22-30) mmol/L BUN (9-20) mg/dL POC Glucose (mg/dL) 114 H (70-110) mg/dL Microbiology - Last 24 Hours (Table) 07/25/24 10:00 Blood Culture - Final Blood
[2024-07-30] MEDS: DEXTROSE 5% IN WATER 100 ML with AMIODARONE 150 MG IV ONE (18:20)
[2024-07-30] MEDS: AMIODARONE 360 MG in DEXTROSE 5% IN WATER 200 ML IV ONE (18:32)
--- NOTE | 2024-07-30 18:33 | CT ---
EXAMINATION TYPE: CT brain wo con DATE OF EXAM: 07/30/2024 6:20 PM COMPARISON: 07/28/2024. CLINICAL INDICATION: Male, 78 years old with history of Lethargy/decreased alertness, ams TECHNIQUE: Brain: Axial CT images of the brain were obtained with coronal and sagittal reformats created and rev iewed. Contrast used: None. Oral contrast used: None. CT DLP: 1217.3 mGycm, Automated exposure control for dose reduction was used. FINDINGS: Brain: Extra-axial spaces: No abnormal extra-axial fluid collections. Ventricular system: Dilatation in proportion to cerebral atrophy. Cerebral parenchyma: Cerebral atrophy. No acute intraparenchymal hemorrhage or mass effect. The flanagan -white junction is well differentiated. Scattered hypoattenuating areas are seen within the white mat ter. Cerebellum: Unremarkable. Mass effect: No evidence of midline shift. Intracranial vasculature: Atherosclerotic calcifications of the intracranial vessels. Soft tissues: Normal. Calvarium/osseous structures: No depressed skull fracture. Paranasal sinuses and mastoid air cells: Mild scattered paranasal sinus disease. Visualized orbits: Bilateral aphakia IMPRESSION: 1. No acute intracranial process. 2. Nonspecific white matter changes, likely secondary to chronic small vessel ischemic disease. [facility], , 07/30/2024 6:30 PM
[2024-07-30 19:58] LABS: Glucose,Whole Blood 121 mg/dL (70-110)
[2024-07-30] MEDS: AMIODARONE 450 MG in DEXTROSE 5% IN WATER 250 ML IV SCH (23:50)
[2024-07-31 05:53] LABS: Glucose,Whole Blood 114 mg/dL (70-110)
--- NOTE | 2024-07-31 09:59 | CA ---
Transthoracic Echo Report Name: Mookie He Age: 78 Gender: M : 1945 Exam Date: 07/30/2024 15:37 Exam Location: [facility] Ht (in): 71 Wt (lb): 211 Ordering Physician: Adina Cabrera Attending/Referring Phys: [id number], Deborah Malt Specifications Control Assistant Rhea Liu RDCS Procedure CPT: Indications: LVF, access for improvement Cardiac Hx: Technical Quality: Technically difficult study Contrast 1: Definity Total Dose (mL): 2 Contrast 2: Total Dose (mL): MEASUREMENTS (Male / Female) Normal Values 2D ECHO LV Diastolic Volume MOD BP 115.8 cm??? 67 - 155 / 56 - 104 cm??? LV Systolic Volume MOD BP 74.5 cm??? 22 - 58 / 19 - 49 cm??? LV Ejection Fraction MOD BP 35.7 % >= 55 % LV Cardiac Index MOD BP 1064.8 cm???/min???m??? LV Diastolic Volume MOD 4C 120.1 cm??? LV Systolic Volume MOD 4C 76.2 cm??? LV Ejection Fraction MOD 4C 36.6 % LV Cardiac Index MOD 4C 1133.7 cm???/min???m??? LV Diastolic Length 4C 8.4 cm LV Systolic Length 4C 7.7 cm LV Diastolic Volume MOD 2C 111.5 cm??? LV Systolic Volume MOD 2C 69.3 cm??? LV Ejection Fraction MOD 2C 37.9 % LV Cardiac Index MOD 2C 1089.5 cm???/min???m??? LV Diastolic Length 2C 8.4 cm LV Systolic Length 2C 8.1 cm FINDINGS Left Ventricle Left ventricular ejection fraction is estimated at 30-35 %. Moderately increased left ventricular systolic volume. Moderately decreased left ventricular ejection fraction with regional variability. Right Ventricle Right ventricle not well visualized. Unable to estimate the right ventricular systolic pressure. Right Atrium Left Atrium Mitral Valve Aortic Valve Tricuspid Valve Pulmonic Valve Pericardium Small anterior pericardial effusion. Aorta CONCLUSIONS Limited study LVEF 30-35% Mid to basal inferior inferoseptal wall hypokinesia Mildly dilated LV cavity Small anterior pericardial Previewed by: Dr Con Cotto (Electronically Signed) Final Date: 31 July 2024 09:58
[2024-07-31 11:17] LABS: African American GFR (CKD) 55 (>60 ml/min/1.73 sqM); Anion Gap 7 mmol/L; Blood Urea Nitrogen 30 mg/dL (9-20); Calcium 8.6 mg/dL (8.4-10.2); Carbon Dioxide 35 mmol/L (22-30); Chloride 99 mmol/L (98-107); Glucose 129 mg/dL (74-99); Magnesium 2.1 mg/dL (1.6-2.3); Non-African American GFR(CKD) 48 (>60 ml/min/1.73 sqM); Potassium 3.4 mmol/L (3.5-5.1); Sodium 141 mmol/L (137-145)
[2024-07-31 11:28] LABS: Glucose,Whole Blood 129 mg/dL (70-110)
--- NOTE | 2024-07-31 12:13 | P.PN ---
Subjective Progress Note Date: 07/31/24 Principal diagnosis: Cardiac arrest. 07/25/2024, patient remains in the ICU, as [id number] last night the patient took a downhill course, he developed what seems to be a picture of pulmonary edema, patient did not do well with BiPAP, continued to desaturate, he was quite tachypneic, I was notified about this patient around 10:30 PM, patient was in respiratory distress, I recommended immediate intubation and mechanical ventilation. Patient was reintubated last night around 1045, he is now on assist-control rate of 22 tidal volume 500 FiO2 down to 45% he was on 100% ear lier PEEP of 5 and flow rate is 65 L/min. Patient is prop on propofol but not on norepinephrine, blood pressure is marginal. Patient did receive Lasix 40 mg IV push every 8 hours remains on Eliquis remains on Zosyn for presumptive aspiration pneumonia. His ABG earlier today showed a pO2 of 273 pCO2 37 pH of 7.43. ABG right after intubation showed a pO2 of 73 pCO2 of 60 pH of 7.23 the patient is down to 45%, PEEP is at 5, and he is on rate of 22 with tidal volume 500. WBC count today is 16.8 hemoglobin is 10, basic metabolic profile is normal BUN is 31 creatinine 1.19Current BNP level is 5760 with normal procalcitonin level of 0.22 chest x-ray is showing improving pulmonary edema chest x-ray this morning is better than the chest x-ray he had at the time of intubation On 07/26/2024, patient is basically about the same intubated and mechanically ventilated, he is on assist-control rate of 22 tidal volume 500 FiO2 50% and PEEP of 5 ABG showed a pO2 of 121 pCO2 29 pH of 7.54 hence his rate was cut down to 18 and his FiO2 cut down to 40%. Patient is on propofol at 50 mcg/kg/min he is also on norepinephrine at 0.08 mcg/kg/min IV fluids at KVO, remains on Lasix 40 mg IV push every 8 hours. Patient is also on Eliquis. His sister who is also his power of deputy county attorney/legal guardian, requested DNR CODE STATUS. Patient is not arousable at this point since he is on propofol, but I plan to discontinue propofol, awaken the patient, and give the patient a weaning trial, I have explained to the sister his condition, and she is agreeable to proceed with trials of weaning, however if the patient is extubated and needed to be reintubated, not to reintubate and go to comfort care measures at this point. Patient will definitely be given weaning trials hopefully today once he is awake and appropriate. Chest x-ray is showing improvement in his pulmonary edema nonetheless it is not completely resolved. WBC count today is 11.1 hemoglobin is 10.1. Potassium is low at 2.8 being addressed accordingly his BUN is 28 creatinine 1.17. On 07/27/2024, he is intubated and mechanically ventilated, he is on assist- control rate of 18 tidal volume 500 FiO2 40% and PEEP of 5 ABG showed a pO2 of 82 pCO2 37 pH of 7.51. Patient was on d/c propofol and norepinephrine, IV fluids at NS at 20 mls/hr, remains on Lasix 40 mg IV push every 8 hours. Patient is also on Eliquis. He is DNR CODE STATUS. Will give the patient a weaning trial with parameters of Vt357, RR 21, MV 7.81, RSBI 56, VC 1035, NIF-15 with positive cuff leak. It was previously discussed if the patient is extubated and needed to be reintubated, not to reintubate and go to comfort care measures at this point. Chest x-ray is showing improvement in his pulmonary edema nonetheless it is not completely resolved. WBC count today is 8.4 has improved, and hemoglobin is 9.0 has decreased. Potassium is low at 3.6, his BUN is 28 creatinine 1.23. Patient was seen today, 07/27/2024, was extubated yesterday morning and subsequently placed on BiPAP. He continued to improve and in the afternoon went on nasal cannula 4 L and continues to saturate well. He is now on IV fluids at NS at 10 mls/hr, remains on Lasix 40 mg IV push every 8 hours. Patient is also on Eliquis. He is DNR CODE STATUS. It was previously discussed we are not to reintubate patient and if he decompensates he go will to comfort care measures at this point. Chest x-ray is showing improvement in his pulmonary edema nonetheless it is not completely resolved. WBC count today is 8.1, and hemoglobin is 8.5. Sodium 146, potassium 3.6, bicarb 34, BUN 27, creatinine 1.05, calcium 8.0. Progress note dated July 29, 2024. The patient is seen today in room 372. The patient is resting comfortably in the chair next to his hospital bed. He is on 4 L of oxygen. No fluids. He is awake and alert, in no distress. Current labs include a white count 10.3, hemoglobin count 9.3, hematocrit 31, and platelet count normal. Sodium 145, potassium 3.5, chlorides 105, CO2 36, BUN 28, creatinine 1.17. Glucose 123. Albumin 3.4. No chest x-ray today. Progress note dated July 30, 2024. The patient is seen today in room 372. The patient is doing reasonably well. Family and friends are in the room with the patient. The patient continues on oxygen, 4 L. No IV fluids. The patient is scheduled have a barium swallow later today. The family mentions that the patient may be discharged to a rehab facility. Current labs include a white count 9.5, hemoglobin 10.3, hematocrit 35, and a platelet count 475,000. Sodium 146, potassium 3.9, chlorides 104, CO2 34, BUN 27, creatinine 1.09. All cultures are negative. No recent chest x-ray to review. Progress note dated July 31, 2024. The patient is seen today in room 372. The patient is currently on 3 L of oxygen. The patient is currently on amiodarone 0.5 mg/min. Clinically, the patient appears to be relatively stable. Current laboratory data includes a sodium 141, potassium 3.4, chlorides 99, CO2 35, BUN 30, creatinine 1.42. Glucose is 129. Calcium 8.6, and magnesium 2.1. Objective - Vital Signs Vital signs: Vital Signs Temp 97.4 F L 07/31/24 11:14 Pulse 67 07/31/24 11:14 Resp 22 07/31/24 11:14 BP 151/66 07/31/24 11:14 Pulse Ox 97 07/31/24 11:14 FiO2 40 07/27/24 15:40 Intake & Output 07/30/24 07/31/24 07/31/24 18:59 06:59 18:59 Intake Total 368 540 Output Total 1265 400 Balance -897 140 Weight 96 kg Intake: IV 10 Invasive Line 1 10 Oral 358 540 Output: Urine 1265 400 Other: Voiding Method Indwelling Catheter Indwelling Catheter Indwelling Catheter ABP, PAP, CO, CI - Last Documented Arterial Blood Pressure 156/40 - Exam No acute distress, oriented 3. No respiratory distress. Currently on 3 L. HEENT examination is grossly unremarkable. Mucous membranes are moist. No oral lesions. Neck supple. Full range of motion. No adenopathy thyromegaly or neck vein distention. Cardiovascular examination reveals regular rhythm rate. S1-S2 normal. No S3 or S4. No discernible murmur noted. Lungs reveal mostly clear breath sounds. Breath sounds are equal bilaterally. Minimal scattered rhonchi. No wheezes. Breath sounds equal. Abdomen soft bowel sounds are heard. No masses or tenderness. Extremities are intact. No cyanosis clubbing or edema. Skin is without rash or lesion. Neurologic examination is brief but nonfocal. - Labs CBC & Chem 7: 07/30/24 07:34 07/31/24 10:16 Labs: Abnormal Lab Results - Last 24 Hours (Table) 07/30/24 07/31/24 07/31/24 Range/Units 19:57 05:51 10:16 Potassium 3.4 L (3.5-5.1) mmol/L Carbon Dioxide 35 H (22-30) mmol/L BUN 30 H (9-20) mg/dL Creatinine 1.42 H (0.66-1.25) mg/dL Glucose 129 H (74-99) mg/dL POC Glucose (mg/dL) 121 H 114 H (70-110) mg/dL 07/31/24 Range/Units 11:23 Potassium (3.5-5.1) mmol/L Carbon Dioxide (22-30) mmol/L BUN (9-20) mg/dL Creatinine (0.66-1.25) mg/dL Glucose (74-99) mg/dL POC Glucose (mg/dL) 129 H (70-110) mg/dL Microbiology - Last 24 Hours (Table) 07/25/24 10:00 Blood Culture - Final Blood Assessment and Plan Assessment: S/P [id number] cardiopulmonary arrest, recovered. Acute hypoxemic respiratory failure. Pulmonary edema, with bilateral pleural effusions, improved. Acute non-ST segment elevation myocardial infarction, status post stenting x 2 of the mid and proximal LAD. Cardiogenic shock, resolved. Acute CVA. Acute kidney injury. Rheumatoid arthritis. History of hypertension. BPH. Chronic anemia. Multiple intubations extubations, and reintubation's, with final extubation on July 28, 2024. Plan: Plan dated July 29, 2024. The patient is seen today in room 372. He is sitting in the chair next to the hospital bed. He is not on any IV fluids. He is getting nasal O2 at 4 L. He is awake and alert, no acute distress. Labs, x-rays, and all medications are reviewed. The patient's overall prognosis remains guarded. We will continue to follow. Dictation was produced using [employer] Voice software. Please excuse any grammatical, word or spelling errors. Plan dated July 30, 2024. The patient is seen today in room 372. He continues on 4 L of oxygen. He is not receiving any IV fluids. Labs, x-rays, and all medications are reviewed. The patient is scheduled for a barium swallow later today. The family members in the room state that the patient is going to be discharged to a rehab facility. We will continue to follow make recommendations. Overall prognosis remains guarded. Dictation was produced using [employer] Voice software. Please excuse any grammatical, word or spelling errors. Plan dated July 31, 2024. Currently, the patient seems to be doing relatively well. The patient continues on O2, 3 L. He is not on amiodarone 0.5 mg/min. Labs, x-rays, and all medications are reviewed. We will continue to follow make recommendations along the way. The patient will eventually likely be discharged to a rehab facility. Dictation was produced using [employer] Voice software. Please excuse any grammatical, word or spelling errors. Time with Patient: Less than 30
[2024-07-31] MEDS: AMIODARONE 200 MG TAB PO SCH (13:14)
--- NOTE | 2024-07-31 13:43 | P.PN ---
Subjective Progress Note Date: 07/31/24 I am following up with the patient and he is accompanied with his sister yesterday at nighttime he had episode of confusion but today is doing much better. He had a repeat CT of the head which was negative for any acute changes. Objective - Vital Signs Vital signs: Vital Signs Temp 97.4 F L 07/31/24 11:14 Pulse 67 07/31/24 11:14 Resp 22 07/31/24 11:14 BP 151/66 07/31/24 11:14 Pulse Ox 97 07/31/24 11:14 FiO2 40 07/27/24 15:40 Intake & Output 07/30/24 07/31/24 07/31/24 18:59 06:59 18:59 Intake Total 368 540 Output Total 1265 400 Balance -897 140 Weight 96 kg Intake: IV 10 Invasive Line 1 10 Oral 358 540 Output: Urine 1265 400 Other: Voiding Method Indwelling Catheter Indwelling Catheter Indwelling Catheter ABP, PAP, CO, CI - Last Documented Arterial Blood Pressure 156/40 - Exam General: Sitting in recliner chair and is not in acute distress. Neuro: The patient is awake alert oriented to self. Correctly stated the place with options. He was able to follow simple commands correctly. He stated the person next to him with his sister. No facial weakness. No dysarthria. Motor strength no movement noted over the right upper extremity and he has weakness over the right lower. Strength over the left appears normal. Some of the work-up during this hospital visit consisted of: Ammonia is 18 Vitamin B12: 414 Folate: 12.5 TSH: 7.630, free T4 0.80 Lipid panel: TG 150, Cholestrol 130, LDL [address] of the head is reported as no acute finding. I reviewed the CT and there is a lot of artifact it is hard to appreciate any acute or subacute ischemia. I felt there is hypoattenuation on the left frontal parietal region but again it is hard to assess. Carotid duplex is reported as atherosclerotic plaque in present with may have mild to moderate internal carotid artery narrowing on the left just above 50. Unable to visualize right vertebral artery. 2D echo was reported as severe cardiomyopathy with wall motion abnormality including apical hypokinesis. Ejection fraction of 25 to 30%. Repeat CT head on 07/15/2024: reported as no acute intracranial bleed. Focal region of low-attenuation within the left parietal lobe which may represent an age indeterminate infarct. Consider further evaluation with MRI. I also personally reviewed the CT and felt the patient has subacute infarct in the left parietal region. Agree with Dr. Arteaga. MOst recent CT of the head is reported as no acute intracranial process. CT head shows hypodensity over the left frontal parietal region. I personally reviewed CT head agree with the findings. CT cervical spine is reported as no acute osseous abnormality cervical spine. CT of the head is reported as no acute intracranial process. Nonspecific white matter changes likely secondary due to chronic small vessel ischemic disease. - Labs CBC & Chem 7: 07/30/24 07:34 07/31/24 10:16 Labs: Abnormal Lab Results - Last 24 Hours (Table) 07/30/24 07/31/24 07/31/24 Range/Units 19:57 05:51 10:16 Potassium 3.4 L (3.5-5.1) mmol/L Carbon Dioxide 35 H (22-30) mmol/L BUN 30 H (9-20) mg/dL Creatinine 1.42 H (0.66-1.25) mg/dL Glucose 129 H (74-99) mg/dL POC Glucose (mg/dL) 121 H 114 H (70-110) mg/dL 07/31/24 Range/Units 11:23 Potassium (3.5-5.1) mmol/L Carbon Dioxide (22-30) mmol/L BUN (9-20) mg/dL Creatinine (0.66-1.25) mg/dL Glucose (74-99) mg/dL POC Glucose (mg/dL) 129 H (70-110) mg/dL Microbiology - Last 24 Hours (Table) 07/25/24 10:00 Blood Culture - Final Blood Assessment and Plan Assessment: This is a 78-year-old gentleman having shortness of breath and presents to our facility on 07/11/2024 because out of the hospital cardiopulmonary arrest lasting for 5 minutes. Found to have severe underlying vessel coronary artery disease, ischemic cardiomyopathy with ejection fraction of 15 to 20% and had Impella placed on 07/12/2024. First his right side weakness may be began on 07/13/2024 but it was hard to assess because he was on sedation. Patient is on IV heparin for his cardiac issues. Subacute ischemic stroke over the bilateral hemisphere (left > right) and developed symptoms with right hemiparesis possibly on the 07/13/2024. Seems cardioembolic due to cardiopulmonary arrest and was notied to have paroxysmal atrial fibrillation. Has acute right hemiparesis. Likely patient has induced delirium/ing. Had a repeat CT of the head yesterday which is negative for any acute stroke--currently doing well. Paroxysmal atrial fibrillation on eliquis Underlying history of severe multivessel coronary artery disease Ischemic cardiomyopathy with ejection fraction of 15 to 20% status post Impella on 07/12/2024 Out of the hospital cardiopulmonary arrest lasting for 5 minutes on 07/11/2024 Acute non-STEMI Acute kidney injury---resolved Hypertension Rheumatoid arthritis Benign prostate hyperplasia Plan: Patient has developed paroxysmal atrial fibrillation. Patient started on Eliquis 5 mg twice daily. Continue ASA 81mg daily and Eliquis 5mg bid. Prior to this, patient was not on aspirin on a regular basis and was not on any anticoagulation MRI of the brain revealed acute left periventricular basal ganglion ischemic type changes. Some additional punctate ischemic changes are within the deep white matter of the left frontal lobe, right occipital lobe and the right centrum semiovale. Chronic appearing periventricular white matter hype rintensity. Differential diagnosis includes but not limited to microvascular ischemic change, vasculitis, multiple sclerosis. PT OT are consulted Cardiothoracic team is consulted for CABG evaluation If Patient continues to have confusion recommend neuropsych evaluation as an outpatient Will defer the rest of the medical management to primary and other specialist For DVT prophylaxis the patient is on Eliquis Upon discharge, the patient to follow-up with neurologist as outpatient within 2-3 weeks. The plan is discussed with patient and his sister. Also discussed with primary team. No further neurological workup. Will sign off. Please reconsult if needed Time with Patient: Less than 30
--- NOTE | 2024-07-31 14:30 | P.PN ---
Subjective Progress Note Date: 07/31/24 PROGRESS NOTE The patient is a 78-year-old male who was admitted to the hospital on July 11 with cardiac arrest, severe cardiomyopathy and severe triple-vessel disease. He was evaluated by Dr. Abrams, underwent an Impella placement. His echocardiogram on presentation showed an ejection fraction 25 to 30% with anterior apical hypokinesis. On July 16 he underwent stenting of the LAD with removal of the Impella CP. He remains intubated, sedated. He is having episodes of paroxysmal atrial fibrillation with sinus bradycardia at times. He has good urine output. He is scheduled to undergo PCI of the RCA and the left circumflex today. He is on no vasopressors. He was found to have right-sided weakness suggestive of a cerebrovascular accident. Repeat echocardiogram on July 14 showed an e jection fraction of 40% while he was on the Impella. He was extubated but had to be reintubated because of respiratory distress. He has no evidence of ventricular ectopic activity. July 21: The patient remains intubated and sedated, in atrial fibrillation. He had episodes of recurrent rapid ventricle response. He is on beta-blockers, well- tolerated. He continues to be on IV amiodarone. He underwent stenting of the left circumflex and RCA yesterday. He is on no vasopressors. His urinary output is good. There is no evidence of ventricular tachycardia. July 22: The patient remains intubated he is more awake. He underwent CRISTINE guided cardioversion yesterday with sikh of sinus mechanism. He continues to be in sinus mechanism today, his CRISTINE showed an ejection fraction of 35 to 40% with no reported segmental wall motion abnormality. His urinary output is stable. He is on no vasopressors. He has no evidence of ventricular ectopic activity. He continues to be on IV heparin and IV amiodarone. He is following commands. July 23: The patient remains intubated, attempt to wean yesterday were unsuccessful. He continues to be in sinus mechanism with sinus bradycardia but no pauses. He is sedated at this time. His urinary output has been stable. He had no evidence of ventricular ectopic activity. He has been started on oral amiodarone and on Eliquis. July 24: The patient is extubated, alert and oriented. Complaining of dryness in his eyes. He continues to be in sinus mechanism. He has no evidence of ventricular ectopic activity or recurrent atrial fibrillation. He denies any chest discomfort or significant dyspnea. He denies any dizziness or palpitations. July 25: The patient had worsening respiratory status yesterday night with progressive dyspnea and hypoxemia requiring BiPAP initially and subsequently intubated because of evidence of acute pulmonary edema. He continues to be in sinus mechanism on no vasopressors. His urinary output has been stable. He is on IV Lasix. There is no evidence of recurrent atrial fibrillation or evidence of ventricular tachyarrhythmia. July 26: The patient remains intubated, he is back in sinus mechanism. His urinary output is stable. He is on a low-dose of norepinephrine. He has no ventricular ectopic activity. He had sinus bradycardia earlier yesterday prior to converting to atrial fibrillation, he is in sinus bradycardia at this time. 07/27 Patient seen and examined. Patient is maintained on IV Lasix 40 mg IV 3 times a day. Creatinine stable at 1.2. Good urine output. Denies any chest pain or pressure. He was extubated was on BiPAP however currently tolerating nasal cannula. He is bradycardic with heart rates in the 40s however is also maintained on Precedex. 07/28 patient seen and examined. Hemoglobin 8.5, creatinine 1.0, sodium 146. Blood pressure well controlled with systolics 100s to 120s. Currently on 3 L nasal cannula. Denies any chest pain or pressure. He was briefly on BiPAP however has not required. He is receiving IV Lasix 40 mg IV every 8 hours with marginal urine output however has not been eating much and is getting mildly hypernatremic with sodium 146. 07/29 Patient seen and examined. Patient is been transferred from ICU to the cardiac stepdown unit. Blood pressure 163/69, heart rate in the 60s, pulse ox 96% on 4 L nasal cannula. Repeat blood work reveals hemoglobin 9.3, BUN 28 creatinine 1.17, potassium 3.5. Patient is resting comfortably in bed. He has been maintained on IV Lasix 40 mg every 8 hours. He does have a negative fluid balance of 1400 mL. Patient still has some confusion and also complaining of visual changes. His breathing is okay. 07/30/2024 Patient seen and examined. Blood pressure 143/60, heart rate in the 60s, pulse ox 98% on 4 L nasal cannula. Repeat blood work reveals hemoglobin 10.3. BUN 27 creatinine 1.09. Patient has been maintained on IV Lasix 40 mg every 8 hours. Patient was noted to have some improvement of his EF during CRISTINE. Will plan to obtain a limited echocardiogram to evaluate his EF. If its greater than 35%, we will not require LifeVest. 07/31/24 Patient seen and examined. Repeat echocardiogram limited study was obtained to evaluate EF which came back at 30 to 35%. Discussed with the patient and family that he will require LifeVest. Also, last evening, patient went into A-fib with RVR. He is now out of atrial fibrillation and we will transition IV amiodarone to oral. Blood pressure 151/66, heart rate 67, pulse ox 97% on 3 L nasal cannula. Repeat blood work reveals potassium 3.4 and will be replaced. BUN 30 creatinine 1.42. PHYSICAL EXAMINATION: LUNGS: Clear to auscultation HEART: Regular rate and rhythm, S1, S2. No S3. Systolic ejection murmur ABDOMEN: Soft, obese, no organomegaly EXTREMETIES: Trace edema, IMPRESSION: 1. Cardiac arrest with severe cardiomyopathy and cardiogenic shock status post Impella 2. Severe triple-vessel disease, status post stenting of the LAD and stenting of the left circumflex and RCA on July 20 3. Paroxysmal atrial fibrillation alternating with sinus bradycardia, back in sinus bradycardia at this time, post cardioversion 4. Evidence suggests right sided weakness related to a cerebrovascular accident 5. Respiratory failure with reintubation,, patient had to be reintubated because flash pulmonary edema 6. Acute renal injury 7. History of hypertension 8. Bradycardia, asymptomatic 9. Chronic systolic heart failure PLAN: Transition IV amiodarone to oral 400 mg twice daily for 1 week, then 200 mg twice daily for 1 week, then 200 mg daily Continue with heart failure regimen. Patient is currently on Eliquis 5 mg twice daily, aspirin 81 mg daily, atorvastatin 40 mg at bedtime, Farxiga 10 mg daily, Lopressor 25 mg twice daily, Entresto 24-26 mg twice daily, Brilinta 90 mg twice daily Patient was transition to oral Lasix 40 mg twice daily Monitor LETY, daily weights, electrolytes and renal function Obtain LifeVest prior to discharge Nurse practitioner note has been reviewed, I agree with documented findings and plan of care. Patient was seen and examined. Objective - Vital Signs Vital signs: Vital Signs Temp 97.4 F L 07/31/24 11:14 Pulse 67 07/31/24 11:14 Resp 22 07/31/24 11:14 BP 151/66 07/31/24 11:14 Pulse Ox 97 07/31/24 11:14 FiO2 40 07/27/24 15:40 Intake & Output 07/30/24 07/31/24 07/31/24 18:59 06:59 18:59 Intake Total 368 540 Output Total 1265 400 Balance -897 140 Weight 96 kg Intake: IV 10 Invasive Line 1 10 Oral 358 540 Output: Urine 1265 400 Other: Voiding Method Indwelling Catheter Indwelling Catheter Indwelling Catheter ABP, PAP, CO, CI - Last Documented Arterial Blood Pressure 156/40 - Labs CBC & Chem 7: 07/30/24 07:34 07/31/24 10:16 Labs: Abnormal Lab Results - Last 24 Hours (Table) 07/30/24 07/31/24 07/31/24 Range/Units 19:57 05:51 10:16 Potassium 3.4 L (3.5-5.1) mmol/L Carbon Dioxide 35 H (22-30) mmol/L BUN 30 H (9-20) mg/dL Creatinine 1.42 H (0.66-1.25) mg/dL Glucose 129 H (74-99) mg/dL POC Glucose (mg/dL) 121 H 114 H (70-110) mg/dL 07/31/24 Range/Units 11:23 Potassium (3.5-5.1) mmol/L Carbon Dioxide (22-30) mmol/L BUN (9-20) mg/dL Creatinine (0.66-1.25) mg/dL Glucose (74-99) mg/dL POC Glucose (mg/dL) 129 H (70-110) mg/dL Microbiology - Last 24 Hours (Table) 07/25/24 10:00 Blood Culture - Final Blood
--- NOTE | 2024-07-31 15:20 | P.PN ---
Subjective Progress Note Date: 07/31/24 78-year-old male with PMH of rheumatoid arthritis, hypertension and BPH was brought to the emergency department via EMS for cardiopulmonary arrest. Recently admitted from 05/13-05/15 for type II ME slightly with elevated troponins likely secondary to COVID-19 pneumonitis, Echo at that time showed LVEF of 55% and moderate pulmonary hypertension. His initial laboratory evaluation shows WBC of 19.7, RBC 6.95, MCV 74.8, APTT 39.7, bicarb 13, glu 313. Mag 2.6. BNP 2770. Trop 0.588 up to 21.1. Lactic acid 3.2. TSH 7.63, FT4 0.8. Procal 2.82. ABG pH 7.01, pCO2 91. COVID, RSV, Flu neg. CXR showed diffuse patchy infiltrate with groundglass opacities and bilateral pleural effusion. Brain CT showed no acute intracranial process. Chest CTA is negative for pulmonary embolism and patchy opacities throughout both lungs with small bilateral pleural effusions. EKG showed sinus bradycardia with a RBBB and T wave inversions in anteroseptal and lateral leads. Echocardiogram showed LVEF of 25 to 30% and ischemic car diomyopathy with apical hypokinesis. Intubated and transferred to ICU. Started on heparin drip. Underwent cardiac cath on 07/12 showing extremely calcified right and left coronary system with critical triple-vessel CAD, severely elevated left-sided filling pressure and successful placement of Impella CP in the LV. CT surgery consulted, ultimately would like patient to recover from his acute events to optimize surgical outcome. Noted R hemiparesis with inadequate neurologic recovery from a sedation holiday on 07/15, Neurology consulted, CT brain on 07/15 showed concern for suspected left parietal subacute CVA. CT brain was repeated again on 07/17 which at this time showed no acute intracranial p rocess. Patient underwent successful stenting to mid and proximal LAD on 07/17 with Impella removal. Extubated and re-intubated on 07/18. Underwent successful PCI OM1 of left circumflex and RCA on 07/20. Complicated with A-Fib RVR requiring CRISTINE and cardioversion on 07/21. Extubated on 07/23 and re-intubated for flash pulmonary edema. MRI brain showed acute left periventricular basal ganglion ischemic type changes, punctate ischemic changes of the left frontal and right occipital lobe. Extubated 07/26. 07/30 Patient was seen and examined. CBC and CMP significant for Hg 10.3, Hct 35, MCV 68.8, Plt 475, Na 146, bicarb 34, BUN 27. Receiving Lasix 40 mg IV TID. Negative 1405 cc fluid balance. Repeat Echo ordered by Cardio to decide on LifeVest. 07/30 Patient was seen and examined. Repeat Echo showed EF 30-35% plans for LifeVest prior to discharge. Plans for [facility] on discharge, unsure if bed available tomorrow. BMP K 3.4, bicarb 35, BUN 30, Cr 1.42, glu 129. Mag 2.1. General: NAD Derm: warm, dry Head: atraumatic, normocephalic, symmetric Eyes: EOMI, no lid lag, anicteric sclera Mouth: no lip lesion, mucus membranes moist Cardiovascular: S1S2 reg, no murmur Lungs: Rhonchi bilateral, no accessory muscle use Ext: no gross muscle atrophy, no edema, no contractures Neuro: RUE 1-2/5, RLE 2/5 strength. CHAY and LLE 5/5 strength Psych: AO x 1-2 Based on my assessment of this patient, this patient meets a high complexity level of care. Out of the hospital cardiopulmonary arrest currently ventilator dependent: Patient is not to be re-intubated. Pulmonary on board. Antibiotics discontinued. NSTEMI status post stents to LAD, OM1 branch of LCx and mid RCA: ASA 81 mg PO QD. Lipitor 40 mg PO QHS. Brilinta 90 mg PO BID. Cardiogenic Shock status post Impella (07/12-07/17) and pressors Acute systolic CHF exacerbation with ejection fraction of 25 to 30%: Lasix 40 mg IV TID switched to 40 mg PO BID. Strict intake and outtake. Daily weights. Farxiga 10 mg PO QD. Metoprolol 25 mg PO BID. Entresto 24-26 mg PO BID. Aldactone 25 mg PO QD. LifeVest ordered by Cardiology. 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 Paroxysmal A-fib with the RVR, now in sinus rhythm, status post cardioversion: Amiodarone 400 mg PO BID with taper. Metoprolol as above. Eliquis 5 mg PO BID. Hypertension: Metoprolol, Entresto, Aldactone as above. Euthyroid sick syndrome secondary above: Outpatient monitoring. Microcytic anemia: Transfuse if Hg < 7. History of COVID-19 pneumonitis Resolved: Bandemia, AG metabolic acidosis, Lactic acidosis, HyperMag Lasix switched to PO. Mckeon discontinued for voiding trial. LifeVest ordered. Plans for SNF when bed available. CODE STATUS: NO CODE. DVT Prophylaxis: Eliquis 5 mg PO BID. GI Prophylaxis: Protonix 40 mg IV QD. Designated medical POA if patient is not able to make medical decisions for them selves: Sister I have reviewed the following territory sales consultant notes: Pulmonary, Cardiology, Neurology I have reviewed the results of the following tests: As above. I have ordered the following tests: As above. I have discussed the care of this patient with the following independent historian: RN, Family, Case management I have independently interpreted the following test below: I have discussed the management of this patient with the following physician: Objective - Vital Signs Vital signs: Vital Signs Temp 97.4 F L 07/31/24 11:14 Pulse 67 07/31/24 11:14 Resp 22 07/31/24 11:14 BP 151/66 07/31/24 11:14 Pulse Ox 97 07/31/24 11:14 FiO2 40 07/27/24 15:40 Intake & Output 07/30/24 07/31/24 07/31/24 18:59 06:59 18:59 Intake Total 368 540 Output Total 1265 400 100 Balance -897 140 -100 Weight 96 kg Intake: IV 10 Invasive Line 1 10 Oral 358 540 Output: Urine 1265 400 100 Other: Voiding Method Indwelling Catheter Indwelling Catheter Indwelling Catheter ABP, PAP, CO, CI - Last Documented Arterial Blood Pressure 156/40 - Labs CBC & Chem 7: 07/30/24 07:34 07/31/24 10:16 Labs: Abnormal Lab Results - Last 24 Hours (Table) 07/30/24 07/31/24 07/31/24 Range/Units 19:57 05:51 10:16 Potassium 3.4 L (3.5-5.1) mmol/L Carbon Dioxide 35 H (22-30) mmol/L BUN 30 H (9-20) mg/dL Creatinine 1.42 H (0.66-1.25) mg/dL Glucose 129 H (74-99) mg/dL POC Glucose (mg/dL) 121 H 114 H (70-110) mg/dL 07/31/24 Range/Units 11:23 Potassium (3.5-5.1) mmol/L Carbon Dioxide (22-30) mmol/L BUN (9-20) mg/dL Creatinine (0.66-1.25) mg/dL Glucose (74-99) mg/dL POC Glucose (mg/dL) 129 H (70-110) mg/dL Microbiology - Last 24 Hours (Table) 07/25/24 10:00 Blood Culture - Final Blood
--- NOTE | 2024-07-31 15:26 | FL ---
Modified barium swallow. HISTORY: Dysphagia. Modified barium swallow was performed with the department of speech pathology. The patient was prese nted with various consistencies of barium. There is no evidence for aspiration or penetration. Full report is to follow from the department of speech pathology. Impression: Normal study. [facility], , 07/31/2024 3:24 PM
[2024-07-31] MEDS: POTASSIUM CHLORIDE ER 20 MEQ TAB.ER PO STA (15:56)
[2024-07-31] MEDS: FUROSEMIDE 40 MG TAB PO SCH (15:57)
[2024-07-31 16:16] LABS: Glucose,Whole Blood 94 mg/dL (70-110)
[2024-07-31] MEDS: MAG HYDROX/AL HYDROX/SIMETH 30 ML CUP PO PRN (16:21)
[2024-07-31 20:15] LABS: Glucose,Whole Blood 107 mg/dL (70-110)
[2024-08-01 06:05] LABS: Glucose,Whole Blood 99 mg/dL (70-110)
[2024-08-01 07:39] LABS: African American GFR (CKD) 75 (>60 ml/min/1.73 sqM); Anion Gap 8 mmol/L; Blood Urea Nitrogen 29 mg/dL (9-20); Calcium 8.5 mg/dL (8.4-10.2); Carbon Dioxide 31 mmol/L (22-30); Chloride 103 mmol/L (98-107); Glucose 99 mg/dL (74-99); Magnesium 2.2 mg/dL (1.6-2.3); Non-African American GFR(CKD) 65 (>60 ml/min/1.73 sqM); Potassium 3.7 mmol/L (3.5-5.1); Sodium 142 mmol/L (137-145)
--- NOTE | 2024-08-01 11:00 | P.PN ---
Subjective Progress Note Date: 08/01/24 Principal diagnosis: Cardiac arrest. 07/25/2024, patient remains in the ICU, as [id number] last night the patient took a downhill course, he developed what seems to be a picture of pulmonary edema, patient did not do well with BiPAP, continued to desaturate, he was quite tachypneic, I was notified about this patient around 10:30 PM, patient was in respiratory distress, I recommended immediate intubation and mechanical ventilation. Patient was reintubated last night around 1045, he is now on assist-control rate of 22 tidal volume 500 FiO2 down to 45% he was on 100% ear lier PEEP of 5 and flow rate is 65 L/min. Patient is prop on propofol but not on norepinephrine, blood pressure is marginal. Patient did receive Lasix 40 mg IV push every 8 hours remains on Eliquis remains on Zosyn for presumptive aspiration pneumonia. His ABG earlier today showed a pO2 of 273 pCO2 37 pH of 7.43. ABG right after intubation showed a pO2 of 73 pCO2 of 60 pH of 7.23 the patient is down to 45%, PEEP is at 5, and he is on rate of 22 with tidal volume 500. WBC count today is 16.8 hemoglobin is 10, basic metabolic profile is normal BUN is 31 creatinine 1.19Current BNP level is 5760 with normal procalcitonin level of 0.22 chest x-ray is showing improving pulmonary edema chest x-ray this morning is better than the chest x-ray he had at the time of intubation On 07/26/2024, patient is basically about the same intubated and mechanically ventilated, he is on assist-control rate of 22 tidal volume 500 FiO2 50% and PEEP of 5 ABG showed a pO2 of 121 pCO2 29 pH of 7.54 hence his rate was cut down to 18 and his FiO2 cut down to 40%. Patient is on propofol at 50 mcg/kg/min he is also on norepinephrine at 0.08 mcg/kg/min IV fluids at KVO, remains on Lasix 40 mg IV push every 8 hours. Patient is also on Eliquis. His sister who is also his power of defense attorney/legal guardian, requested DNR CODE STATUS. Patient is not arousable at this point since he is on propofol, but I plan to discontinue propofol, awaken the patient, and give the patient a weaning trial, I have explained to the sister his condition, and she is agreeable to proceed with trials of weaning, however if the patient is extubated and needed to be reintubated, not to reintubate and go to comfort care measures at this point. Patient will definitely be given weaning trials hopefully today once he is awake and appropriate. Chest x-ray is showing improvement in his pulmonary edema nonetheless it is not completely resolved. WBC count today is 11.1 hemoglobin is 10.1. Potassium is low at 2.8 being addressed accordingly his BUN is 28 creatinine 1.17. On 07/27/2024, he is intubated and mechanically ventilated, he is on assist- control rate of 18 tidal volume 500 FiO2 40% and PEEP of 5 ABG showed a pO2 of 82 pCO2 37 pH of 7.51. Patient was on d/c propofol and norepinephrine, IV fluids at NS at 20 mls/hr, remains on Lasix 40 mg IV push every 8 hours. Patient is also on Eliquis. He is DNR CODE STATUS. Will give the patient a weaning trial with parameters of Vt357, RR 21, MV 7.81, RSBI 56, VC 1035, NIF-15 with positive cuff leak. It was previously discussed if the patient is extubated and needed to be reintubated, not to reintubate and go to comfort care measures at this point. Chest x-ray is showing improvement in his pulmonary edema nonetheless it is not completely resolved. WBC count today is 8.4 has improved, and hemoglobin is 9.0 has decreased. Potassium is low at 3.6, his BUN is 28 creatinine 1.23. Patient was seen today, 07/27/2024, was extubated yesterday morning and subsequently placed on BiPAP. He continued to improve and in the afternoon went on nasal cannula 4 L and continues to saturate well. He is now on IV fluids at NS at 10 mls/hr, remains on Lasix 40 mg IV push every 8 hours. Patient is also on Eliquis. He is DNR CODE STATUS. It was previously discussed we are not to reintubate patient and if he decompensates he go will to comfort care measures at this point. Chest x-ray is showing improvement in his pulmonary edema nonetheless it is not completely resolved. WBC count today is 8.1, and hemoglobin is 8.5. Sodium 146, potassium 3.6, bicarb 34, BUN 27, creatinine 1.05, calcium 8.0. Progress note dated July 29, 2024. The patient is seen today in room 372. The patient is resting comfortably in the chair next to his hospital bed. He is on 4 L of oxygen. No fluids. He is awake and alert, in no distress. Current labs include a white count 10.3, hemoglobin count 9.3, hematocrit 31, and platelet count normal. Sodium 145, potassium 3.5, chlorides 105, CO2 36, BUN 28, creatinine 1.17. Glucose 123. Albumin 3.4. No chest x-ray today. Progress note dated July 30, 2024. The patient is seen today in room 372. The patient is doing reasonably well. Family and friends are in the room with the patient. The patient continues on oxygen, 4 L. No IV fluids. The patient is scheduled have a barium swallow later today. The family mentions that the patient may be discharged to a rehab facility. Current labs include a white count 9.5, hemoglobin 10.3, hematocrit 35, and a platelet count 475,000. Sodium 146, potassium 3.9, chlorides 104, CO2 34, BUN 27, creatinine 1.09. All cultures are negative. No recent chest x-ray to review. Progress note dated July 31, 2024. The patient is seen today in room 372. The patient is currently on 3 L of oxygen. The patient is currently on amiodarone 0.5 mg/min. Clinically, the patient appears to be relatively stable. Current laboratory data includes a sodium 141, potassium 3.4, chlorides 99, CO2 35, BUN 30, creatinine 1.42. Glucose is 129. Calcium 8.6, and magnesium 2.1. Progress note dated August 01, 2024. 78-year-old male seen today in room 372. The patient is doing well. He has been weaned down to 2 L of oxygen. He is not receiving any IV fluids. The family is looking into a rehab facility, on discharge. The patient is clinically stable. He is awake and alert, without any complaints. Current labs include a sodium of 142, potassium 3.7, chlorides 103, CO2 31, BUN 29, creatinine 1.10. Glucose is 89. Calcium 8.5, and magnesium is 2.2. Objective - Vital Signs Vital signs: Vital Signs Temp 97.8 F 08/01/24 07:55 Pulse 63 08/01/24 07:55 Resp 17 08/01/24 07:55 BP 144/64 08/01/24 07:55 Pulse Ox 98 08/01/24 08:05 FiO2 40 07/27/24 15:40 Intake & Output 07/31/24 08/01/24 08/01/24 18:59 06:59 18:59 Intake Total 780 180 Output Total 100 Balance -100 780 180 Weight 96 kg Intake: Oral 780 180 Output: Urine 100 Other: Voiding Method Indwelling Catheter Indwelling Catheter External Catheter # Voids 2 # Bowel Movements 1 ABP, PAP, CO, CI - Last Documented Arterial Blood Pressure 156/40 - Exam No acute distress, oriented 3. No respiratory distress. Currently on 2 L. HEENT examination is grossly unremarkable. Mucous membranes are moist. No oral lesions. Neck supple. Full range of motion. No adenopathy thyromegaly or neck vein distention. Cardiovascular examination reveals regular rhythm rate. S1-S2 normal. No S3 or S4. No discernible murmur noted. Lungs reveal mostly clear breath sounds. Breath sounds are equal bilaterally. Minimal scattered rhonchi. No wheezes. Breath sounds equal. Abdomen soft bowel sounds are heard. No masses or tenderness. Extremities are intact. No cyanosis clubbing or edema. Skin is without rash or lesion. Neurologic examination is brief but nonfocal. - Labs CBC & Chem 7: 07/30/24 07:34 08/01/24 06:46 Labs: Abnormal Lab Results - Last 24 Hours (Table) 07/31/24 07/31/24 08/01/24 Range/Units 10:16 11: 06:46 Potassium 3.4 L (3.5-5.1) mmol/L Carbon Dioxide 35 H 31 H (22-30) mmol/L BUN 30 H 29 H (9-20) mg/dL Creatinine 1.42 H (0.66-1.25) mg/dL Glucose 129 H (74-99) mg/dL POC Glucose (mg/dL) 129 H (70-110) mg/dL Assessment and Plan Assessment: S/P [id number] cardiopulmonary arrest, recovered. Acute hypoxemic respiratory failure. Pulmonary edema, with bilateral pleural effusions, improved. Acute non-ST segment elevation myocardial infarction, status post stenting x 2 of the mid and proximal LAD. Cardiogenic shock, resolved. Acute CVA. Acute kidney injury. Rheumatoid arthritis. History of hypertension. BPH. Chronic anemia. Multiple intubations extubations, and reintubation's, with final extubation on July 28, 2024. Plan: Plan dated July 29, 2024. The patient is seen today in room 372. He is sitting in the chair next to the hospital bed. He is not on any IV fluids. He is getting nasal O2 at 4 L. He is awake and alert, no acute distress. Labs, x-rays, and all medications are reviewed. The patient's overall prognosis remains guarded. We will continue to follow. Dictation was produced using iRise software. Please excuse any grammatical, word or spelling errors. Plan dated July 30, 2024. The patient is seen today in room 372. He continues on 4 L of oxygen. He is not receiving any IV fluids. Labs, x-rays, and all medications are reviewed. The patient is scheduled for a barium swallow later today. The family members in the room state that the patient is going to be discharged to a rehab facility. We will continue to follow make recommendations. Overall prognosis remains guarded. Dictation was produced using iRise software. Please excuse any grammatical, word or spelling errors. Plan dated July 31, 2024. Currently, the patient seems to be doing relatively well. The patient continues on O2, 3 L. He is not on amiodarone 0.5 mg/min. Labs, x-rays, and all medications are reviewed. We will continue to follow make recommendations along the way. The patient will eventually likely be discharged to a rehab facility. Dictation was produced using iRise software. Please excuse any grammatical, word or spelling errors. Plan dated August 01, 2024. The patient is seen today in room 372. The patient has been weaned down to 2 L. He is not receiving any IV fluids. He is awake and alert. He has no specific complaints. He is laying in bed. The family is looking at possible discharge to a rehab facility. The exact location has not yet been determined. We will continue to follow the patient. Clinically he is well. No additional recommendations are made. Labs, x-rays, and all medications are reviewed. Prognosis is guarded. Dictation was produced using logolineupation software. Please excuse any grammatical, word or spelling errors. Time with Patient: Less than 30
[2024-08-01 11:24] LABS: Glucose,Whole Blood 117 mg/dL (70-110)
--- NOTE | 2024-08-01 13:24 | P.PN ---
Subjective Progress Note Date: 08/01/24 78-year-old male with PMH of rheumatoid arthritis, hypertension and BPH was brought to the emergency department via EMS for cardiopulmonary arrest. Recently admitted from 05/13-05/15 for type II CO slightly with elevated troponins likely secondary to COVID-19 pneumonitis, Echo at that time showed LVEF of 55% and moderate pulmonary hypertension. His initial laboratory evaluation shows WBC of 19.7, RBC 6.95, MCV 74.8, APTT 39.7, bicarb 13, glu 313. Mag 2.6. BNP 2770. Trop 0.588 up to 21.1. Lactic acid 3.2. TSH 7.63, FT4 0.8. Procal 2.82. ABG pH 7.01, pCO2 91. COVID, RSV, Flu neg. CXR showed diffuse patchy infiltrate with groundglass opacities and bilateral pleural effusion. Brain CT showed no acute intracranial process. Chest CTA is negative for pulmonary embolism and patchy opacities throughout both lungs with small bilateral pleural effusions. EKG showed sinus bradycardia with a RBBB and T wave inversions in anteroseptal and lateral leads. Echocardiogram showed LVEF of 25 to 30% and ischemic car diomyopathy with apical hypokinesis. Intubated and transferred to ICU. Started on heparin drip. Underwent cardiac cath on 07/12 showing extremely calcified right and left coronary system with critical triple-vessel CAD, severely elevated left-sided filling pressure and successful placement of Impella CP in the LV. CT surgery consulted, ultimately would like patient to recover from his acute events to optimize surgical outcome. Noted R hemiparesis with inadequate neurologic recovery from a sedation holiday on 07/15, Neurology consulted, CT brain on 07/15 showed concern for suspected left parietal subacute CVA. CT brain was repeated again on 07/17 which at this time showed no acute intracranial p rocess. Patient underwent successful stenting to mid and proximal LAD on 07/17 with Impella removal. Extubated and re-intubated on 07/18. Underwent successful PCI OM1 of left circumflex and RCA on 07/20. Complicated with A-Fib RVR requiring CRISTINE and cardioversion on 07/21. Extubated on 07/23 and re-intubated for flash pulmonary edema. MRI brain showed acute left periventricular basal ganglion ischemic type changes, punctate ischemic changes of the left frontal and right occipital lobe. Extubated 07/26. He has been diuresing well. Plans for SNF at [facility] will need a LifeVest prior to discharge. 07/30 Patient was seen and examined. CBC and CMP significant for Hg 10.3, Hct 35, MCV 68.8, Plt 475, Na 146, bicarb 34, BUN 27. Receiving Lasix 40 mg IV TID. Negative 1405 cc fluid balance. Repeat Echo ordered by Cardio to decide on LifeVest. 07/31 Patient was seen and examined. Repeat Echo showed EF 30-35% plans for LifeVest prior to discharge. Plans for [facility] on discharge, unsure if bed available tomorrow. BMP K 3.4, bicarb 35, BUN 30, Cr 1.42, glu 129. Mag 2.1. 08/01 Patient was seen and examined. Urinating freely. Has some hematuria after Mckeon discontinued. BMP bicarb 31, BUN 29. Mag 2.2. Patient passed video swallow. Case management reports no beds until Saturday. General: NAD Derm: warm, dry Head: atraumatic, normocephalic, symmetric Eyes: EOMI, no lid lag, anicteric sclera Mouth: no lip lesion, mucus membranes moist Cardiovascular: S1S2 reg, no murmur Lungs: Decreased BS bilateral, no accessory muscle use Ext: no gross muscle atrophy, no edema, no contractures Neuro: RUE 1-2/5, RLE 2/5 strength. CHAY and LLE 5/5 strength Psych: AO x 1-2 Based on my assessment of this patient, this patient meets a high complexity level of care. Out of the hospital cardiopulmonary arrest currently ventilator dependent: Patient is not to be re-intubated. Pulmonary on board. Antibiotics discontinued. NSTEMI status post stents to LAD, OM1 branch of LCx and mid RCA: ASA 81 mg PO QD. Lipitor 40 mg PO QHS. Brilinta 90 mg PO BID. Cardiogenic Shock status post Impella (07/12-07/17) and pressors Acute systolic CHF exacerbation with ejection fraction of 25 to 30%: Lasix 40 mg IV TID switched to 40 mg PO BID. Strict intake and outtake. Daily weights. Farxiga 10 mg PO QD. Metoprolol 25 mg PO BID. Entresto 24-26 mg PO BID. Aldactone 25 mg PO QD. LifeVest ordered by Cardiology. 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 Paroxysmal A-fib with the RVR, now in sinus rhythm, status post cardioversion: Amiodarone 400 mg PO BID with taper. Metoprolol as above. Eliquis 5 mg PO BID. Hypertension: Metoprolol, Entresto, Aldactone as above. Euthyroid sick syndrome secondary above: Outpatient monitoring. Microcytic anemia: Transfuse if Hg < 7. History of COVID-19 pneumonitis Resolved: Bandemia, AG metabolic acidosis, Lactic acidosis, HyperMag Lasix switched to PO. Mckeon discontinued 07/31 for voiding trial. LifeVest ord ered. Plans for SNF when bed available. CODE STATUS: NO CODE. DVT Prophylaxis: Eliquis 5 mg PO BID. GI Prophylaxis: Protonix 40 mg IV QD. Designated medical POA if patient is not able to make medical decisions for themselves: Sister I have reviewed the following wardrobe image consultant notes: Pulmonary, Cardiology, Neurology I have reviewed the results of the following tests: BMP, Mag, Video swallow. I have ordered the following tests: I have discussed the care of this patient with the following independent historian: Case management, RN I have independently interpreted the following test below: I have discussed the management of this patient with the following physician: Objective - Vital Signs Vital signs: Vital Signs Temp 97.8 F 08/01/24 07:55 Pulse 63 08/01/24 07:55 Resp 17 08/01/24 07:55 BP 144/64 08/01/24 07:55 Pulse Ox 98 08/01/24 08:05 FiO2 40 07/27/24 15:40 Intake & Output 07/31/24 08/01/24 08/01/24 18:59 06:59 18:59 Intake Total 780 180 Output Total 100 Balance -100 780 180 Weight 96 kg Intake: Oral 780 180 Output: Urine 100 Other: Voiding Method Indwelling Catheter Indwelling Catheter External Catheter # Voids 2 # Bowel Movements 1 ABP, PAP, CO, CI - Last Documented Arterial Blood Pressure 156/40 - Labs CBC & Chem 7: 07/30/24 07:34 08/01/24 06:46 Labs: Abnormal Lab Results - Last 24 Hours (Table) 07/31/24 07/31/24 08/01/24 Range/Units 10:16 11:23 06:46 Potassium 3.4 L (3.5-5.1) mmol/L Carbon Dioxide 35 H 31 H (22-30) mmol/L BUN 30 H 29 H (9-20) mg/dL Creatinine 1.42 H (0.66-1.25) mg/dL Glucose 129 H (74-99) mg/dL POC Glucose (mg/dL) 129 H (70-110) mg/dL
--- NOTE | 2024-08-01 14:45 | P.PN ---
Subjective Progress Note Date: 08/01/24 PROGRESS NOTE The patient is a 78-year-old male who was admitted to the hospital on July 11 with cardiac arrest, severe cardiomyopathy and severe triple-vessel disease. He was evaluated by Dr. Abrams, underwent an Impella placement. His echocardiogram on presentation showed an ejection fraction 25 to 30% with anterior apical hypokinesis. On July 16 he underwent stenting of the LAD with removal of the Impella CP. He remains intubated, sedated. He is having episodes of paroxysmal atrial fibrillation with sinus bradycardia at times. He has good urine output. He is scheduled to undergo PCI of the RCA and the left circumflex today. He is on no vasopressors. He was found to have right-sided weakness suggestive of a cerebrovascular accident. Repeat echocardiogram on July 14 showed an e jection fraction of 40% while he was on the Impella. He was extubated but had to be reintubated because of respiratory distress. He has no evidence of ventricular ectopic activity. July 21: The patient remains intubated and sedated, in atrial fibrillation. He had episodes of recurrent rapid ventricle response. He is on beta-blockers, well- tolerated. He continues to be on IV amiodarone. He underwent stenting of the left circumflex and RCA yesterday. He is on no vasopressors. His urinary output is good. There is no evidence of ventricular tachycardia. July 22: The patient remains intubated he is more awake. He underwent CRISTINE guided cardioversion yesterday with advent of sinus mechanism. He continues to be in sinus mechanism today, his CRISTINE showed an ejection fraction of 35 to 40% with no reported segmental wall motion abnormality. His urinary output is stable. He is on no vasopressors. He has no evidence of ventricular ectopic activity. He continues to be on IV heparin and IV amiodarone. He is following commands. July 23: The patient remains intubated, attempt to wean yesterday were unsuccessful. He continues to be in sinus mechanism with sinus bradycardia but no pauses. He is sedated at this time. His urinary output has been stable. He had no evidence of ventricular ectopic activity. He has been started on oral amiodarone and on Eliquis. July 24: The patient is extubated, alert and oriented. Complaining of dryness in his eyes. He continues to be in sinus mechanism. He has no evidence of ventricular ectopic activity or recurrent atrial fibrillation. He denies any chest discomfort or significant dyspnea. He denies any dizziness or palpitations. July 25: The patient had worsening respiratory status yesterday night with progressive dyspnea and hypoxemia requiring BiPAP initially and subsequently intubated because of evidence of acute pulmonary edema. He continues to be in sinus mechanism on no vasopressors. His urinary output has been stable. He is on IV Lasix. There is no evidence of recurrent atrial fibrillation or evidence of ventricular tachyarrhythmia. July 26: The patient remains intubated, he is back in sinus mechanism. His urinary output is stable. He is on a low-dose of norepinephrine. He has no ventricular ectopic activity. He had sinus bradycardia earlier yesterday prior to converting to atrial fibrillation, he is in sinus bradycardia at this time. 07/27 Patient seen and examined. Patient is maintained on IV Lasix 40 mg IV 3 times a day. Creatinine stable at 1.2. Good urine output. Denies any chest pain or pressure. He was extubated was on BiPAP however currently tolerating nasal cannula. He is bradycardic with heart rates in the 40s however is also maintained on Precedex. 07/28 patient seen and examined. Hemoglobin 8.5, creatinine 1.0, sodium 146. Blood pressure well controlled with systolics 100s to 120s. Currently on 3 L nasal cannula. Denies any chest pain or pressure. He was briefly on BiPAP however has not required. He is receiving IV Lasix 40 mg IV every 8 hours with marginal urine output however has not been eating much and is getting mildly hypernatremic with sodium 146. 07/29 Patient seen and examined. Patient is been transferred from ICU to the cardiac stepdown unit. Blood pressure 163/69, heart rate in the 60s, pulse ox 96% on 4 L nasal cannula. Repeat blood work reveals hemoglobin 9.3, BUN 28 creatinine 1.17, potassium 3.5. Patient is resting comfortably in bed. He has been maintained on IV Lasix 40 mg every 8 hours. He does have a negative fluid balance of 1400 mL. Patient still has some confusion and also complaining of visual changes. His breathing is okay. 07/30/2024 Patient seen and examined. Blood pressure 143/60, heart rate in the 60s, pulse ox 98% on 4 L nasal cannula. Repeat blood work reveals hemoglobin 10.3. BUN 27 creatinine 1.09. Patient has been maintained on IV Lasix 40 mg every 8 hours. Patient was noted to have some improvement of his EF during CRISTINE. Will plan to obtain a limited echocardiogram to evaluate his EF. If its greater than 35%, we will not require LifeVest. 07/31/24 Patient seen and examined. Repeat echocardiogram limited study was obtained to evaluate EF which came back at 30 to 35%. Discussed with the patient and family that he will require LifeVest. Also, last evening, patient went into [facility] with [facility]. He is now out of atrial fibrillation and we will transition IV amiodarone to oral. Blood pressure 151/66, heart rate 67, pulse ox 97% on 3 L nasal cannula. Repeat blood work reveals potassium 3.4 and will be replaced. BUN 30 creatinine 1.42. 08/01/2024 Seen and examined at bedside this a.m. Hemodynamically stable. Labs within range. PHYSICAL EXAMINATION: LUNGS: Clear to auscultation HEART: Regular rate and rhythm, S1, S2. No S3. Systolic ejection murmur ABDOMEN: Soft, obese, no organomegaly EXTREMETIES: Trace edema, IMPRESSION: 1. Cardiac arrest with severe cardiomyopathy and cardiogenic shock status post Impella 2. Severe triple-vessel disease, status post stenting of the LAD and stenting of the left circumflex and RCA on July 20 3. Paroxysmal atrial fibrillation alternating with sinus bradycardia, back in sinus bradycardia at this time, post cardioversion 4. Evidence suggests right sided weakness related to a cerebrovascular accident 5. Respiratory failure with reintubation,, patient had to be reintubated because flash pulmonary edema 6. Acute renal injury 7. History of hypertension 8. Bradycardia, asymptomatic 9. Chronic systolic heart failure PLAN: Transition IV amiodarone to oral 400 mg twice daily until 08/06/2024., then 200 mg twice daily for 1 week, then 200 mg daily Continue with heart failure regimen. Patient is currently on Eliquis 5 mg twice daily, aspirin 81 mg daily, atorvastatin 40 mg at bedtime, Farxiga 10 mg daily, Lopressor 25 mg twice daily, Entresto 24-26 mg twice daily, Brilinta 90 mg twice daily Lasix 40 mg p.o. twice daily Monitor LETY, daily weights, electrolytes and renal function Obtain LifeVest prior to discharge Objective - Vital Signs Vital signs: Vital Signs Temp 97.8 F 08/01/24 07:55 Pulse 63 11/23/24 11:22 Resp 15 08/01/24 11:22 BP 129/66 08/01/24 11:22 Pulse Ox 99 08/01/24 11:22 FiO2 40 07/27/24 15:40 Intake & Output 07/31/24 08/01/24 08/01/24 18:59 06:59 18:59 Intake Total 780 360 Output Total 100 Balance -100 780 360 Weight 96 kg Intake: Oral 780 360 Output: Urine 100 Other: Voiding Method Indwelling Catheter Indwelling Catheter External Catheter # Voids 2 1 # Bowel Movements 1 1 ABP, PAP, CO, CI - Last Documented Arterial Blood Pressure 156/40 - Labs CBC & Chem 7: 07/30/24 07:34 08/01/24 06:46 Labs: Abnormal Lab Results - Last 24 Hours (Table) 08/01/24 08/01/24 Range/Units 06:46 11:22 Carbon Dioxide 31 H (22-30) mmol/L BUN 29 H (9-20) mg/dL POC Glucose (mg/dL) 117 H (70-110) mg/dL
[2024-08-01 16:33] LABS: Glucose,Whole Blood 111 mg/dL (70-110)
[2024-08-01 20:53] LABS: Glucose,Whole Blood 120 mg/dL (70-110)
[2024-08-02 06:20] LABS: Glucose,Whole Blood 113 mg/dL (70-110)
--- NOTE | 2024-08-02 10:55 | P.PN ---
Subjective Progress Note Date: 08/02/24 Principal diagnosis: Cardiac arrest. 07/25/2024, patient remains in the ICU, as [id number] last night the patient took a downhill course, he developed what seems to be a picture of pulmonary edema, patient did not do well with BiPAP, continued to desaturate, he was quite tachypneic, I was notified about this patient around 10:30 PM, patient was in respiratory distress, I recommended immediate intubation and mechanical ventilation. Patient was reintubated last night around 1045, he is now on assist-control rate of 22 tidal volume 500 FiO2 down to 45% he was on 100% ear lier PEEP of 5 and flow rate is 65 L/min. Patient is prop on propofol but not on norepinephrine, blood pressure is marginal. Patient did receive Lasix 40 mg IV push every 8 hours remains on Eliquis remains on Zosyn for presumptive aspiration pneumonia. His ABG earlier today showed a pO2 of 273 pCO2 37 pH of 7.43. ABG right after intubation showed a pO2 of 73 pCO2 of 60 pH of 7.23 the patient is down to 45%, PEEP is at 5, and he is on rate of 22 with tidal volume 500. WBC count today is 16.8 hemoglobin is 10, basic metabolic profile is normal BUN is 31 creatinine 1.19Current BNP level is 5760 with normal procalcitonin level of 0.22 chest x-ray is showing improving pulmonary edema chest x-ray this morning is better than the chest x-ray he had at the time of intubation On 07/26/2024, patient is basically about the same intubated and mechanically ventilated, he is on assist-control rate of 22 tidal volume 500 FiO2 50% and PEEP of 5 ABG showed a pO2 of 121 pCO2 29 pH of 7.54 hence his rate was cut down to 18 and his FiO2 cut down to 40%. Patient is on propofol at 50 mcg/kg/min he is also on norepinephrine at 0.08 mcg/kg/min IV fluids at KVO, remains on Lasix 40 mg IV push every 8 hours. Patient is also on Eliquis. His sister who is also his power of estate planning attorney/legal guardian, requested DNR CODE STATUS. Patient is not arousable at this point since he is on propofol, but I plan to discontinue propofol, awaken the patient, and give the patient a weaning trial, I have explained to the sister his condition, and she is agreeable to proceed with trials of weaning, however if the patient is extubated and needed to be reintubated, not to reintubate and go to comfort care measures at this point. Patient will definitely be given weaning trials hopefully today once he is awake and appropriate. Chest x-ray is showing improvement in his pulmonary edema nonetheless it is not completely resolved. WBC count today is 11.1 hemoglobin is 10.1. Potassium is low at 2.8 being addressed accordingly his BUN is 28 creatinine 1.17. On 07/27/2024, he is intubated and mechanically ventilated, he is on assist- control rate of 18 tidal volume 500 FiO2 40% and PEEP of 5 ABG showed a pO2 of 82 pCO2 37 pH of 7.51. Patient was on d/c propofol and norepinephrine, IV fluids at NS at 20 mls/hr, remains on Lasix 40 mg IV push every 8 hours. Patient is also on Eliquis. He is DNR CODE STATUS. Will give the patient a weaning trial with parameters of Vt357, RR 21, MV 7.81, RSBI 56, VC 1035, NIF-15 with positive cuff leak. It was previously discussed if the patient is extubated and needed to be reintubated, not to reintubate and go to comfort care measures at this point. Chest x-ray is showing improvement in his pulmonary edema nonetheless it is not completely resolved. WBC count today is 8.4 has improved, and hemoglobin is 9.0 has decreased. Potassium is low at 3.6, his BUN is 28 creatinine 1.23. Patient was seen today, 07/27/2024, was extubated yesterday morning and subsequently placed on BiPAP. He continued to improve and in the afternoon went on nasal cannula 4 L and continues to saturate well. He is now on IV fluids at NS at 10 mls/hr, remains on Lasix 40 mg IV push every 8 hours. Patient is also on Eliquis. He is DNR CODE STATUS. It was previously discussed we are not to reintubate patient and if he decompensates he go will to comfort care measures at this point. Chest x-ray is showing improvement in his pulmonary edema nonetheless it is not completely resolved. WBC count today is 8.1, and hemoglobin is 8.5. Sodium 146, potassium 3.6, bicarb 34, BUN 27, creatinine 1.05, calcium 8.0. Progress note dated July 29, 2024. The patient is seen today in room 372. The patient is resting comfortably in the chair next to his hospital bed. He is on 4 L of oxygen. No fluids. He is awake and alert, in no distress. Current labs include a white count 10.3, hemoglobin count 9.3, hematocrit 31, and platelet count normal. Sodium 145, potassium 3.5, chlorides 105, CO2 36, BUN 28, creatinine 1.17. Glucose 123. Albumin 3.4. No chest x-ray today. Progress note dated July 30, 2024. The patient is seen today in room 372. The patient is doing reasonably well. Family and friends are in the room with the patient. The patient continues on oxygen, 4 L. No IV fluids. The patient is scheduled have a barium swallow later today. The family mentions that the patient may be discharged to a rehab facility. Current labs include a white count 9.5, hemoglobin 10.3, hematocrit 35, and a platelet count 475,000. Sodium 146, potassium 3.9, chlorides 104, CO2 34, BUN 27, creatinine 1.09. All cultures are negative. No recent chest x-ray to review. Progress note dated July 31, 2024. The patient is seen today in room 372. The patient is currently on 3 L of oxygen. The patient is currently on amiodarone 0.5 mg/min. Clinically, the patient appears to be relatively stable. Current laboratory data includes a sodium 141, potassium 3.4, chlorides 99, CO2 35, BUN 30, creatinine 1.42. Glucose is 129. Calcium 8.6, and magnesium 2.1. Progress note dated August 01, 2024. 78-year-old male seen today in room 372. The patient is doing well. He has been weaned down to 2 L of oxygen. He is not receiving any IV fluids. The family is looking into a rehab facility, on discharge. The patient is clinically stable. He is awake and alert, without any complaints. Current labs include a sodium of 142, potassium 3.7, chlorides 103, CO2 31, BUN 29, creatinine 1.10. Glucose is 89. Calcium 8.5, and magnesium is 2.2. Progress note dated August 02, 2024. 78-year-old male seen today in room 372. Patient has been weaned off of oxygen. His room air saturation is 97%. He denies any issues at this time, states that he is feeling well. He is alert and awake. He is laying in bed. No new labs today other than a glucose of 113. Objective - Vital Signs Vital signs: Vital Signs Temp 97.5 F L 08/02/24 07:46 Pulse 69 08/02/24 07:46 Resp 16 08/02/24 07:46 BP 159/66 08/02/24 07:46 Pulse Ox 97 08/02/24 07:46 FiO2 40 07/27/24 15:40 Intake & Output 08/01/24 08/02/24 08/02/24 18:59 06:59 18:59 Intake Total 540 240 10 Output Total 500 500 Balance 40 -260 10 Intake: IV 10 Invasive Line 2 10 Oral 540 240 Output: Urine 500 500 Other: Voiding Method External Catheter Diaper Diaper # Voids 1 # Bowel Movements 1 ABP, PAP, CO, CI - Last Documented Arterial Blood Pressure 156/40 - Exam No acute distress, oriented 3. No respiratory distress. Currently on room air. HEENT examination is grossly unremarkable. Mucous membranes are moist. No oral lesions. Neck supple. Full range of motion. No adenopathy thyromegaly or neck vein distention. Cardiovascular examination reveals regular rhythm rate. S1-S2 normal. No S3 or S4. No discernible murmur noted. Lungs reveal mostly clear breath sounds. Breath sounds are equal bilaterally. Minimal scattered rhonchi. No wheezes. Breath sounds equal. Abdomen soft bowel sounds are heard. No masses or tenderness. Extremities are intact. No cyanosis clubbing or edema. Skin is without rash or lesion. Neurologic examination is brief but nonfocal. - Labs CBC & Chem 7: 07/30/24 07:34 08/01/24 06:46 Labs: Abnormal Lab Results - Last 24 Hours (Table) 08/01/24 08/01/24 08/01/24 Range/Units 11: 16:31 20:51 POC Glucose (mg/dL) 117 H 111 H 120 H (70-110) mg/dL 08/02/24 Range/Units 06:18 POC Glucose (mg/dL) 113 H (70-110) mg/dL Assessment and Plan Assessment: S/P [id number] cardiopulmonary arrest, recovered. Acute hypoxemic respiratory failure. Pulmonary edema, with bilateral pleural effusions, improved. Acute non-ST segment elevation myocardial infarction, status post stenting x 2 of the mid and proximal LAD. Cardiogenic shock, resolved. Acute CVA. Acute kidney injury. Rheumatoid arthritis. History of hypertension. BPH. Chronic anemia. Multiple intubations extubations, and reintubation's, with final extubation on July 28, 2024. Plan: Plan dated July 29, 2024. The patient is seen today in room 372. He is sitting in the chair next to the hospital bed. He is not on any IV fluids. He is getting nasal O2 at 4 L. He is awake and alert, no acute distress. Labs, x-rays, and all medications are reviewed. The patient's overall prognosis remains guarded. We will continue to follow. Dictation was produced using [employer] software. Please excuse any grammatical, word or spelling errors. Plan dated July 30, 2024. The patient is seen today in room 372. He continues on 4 L of oxygen. He is not receiving any IV fluids. Labs, x-rays, and all medications are reviewed. The patient is scheduled for a barium swallow later today. The family members in the room state that the patient is going to be discharged to a rehab facility. We will continue to follow make recommendations. Overall prognosis remains guarded. Dictation was produced using [employer] software. Please excuse any grammatical, word or spelling errors. Plan dated July 31, 2024. Currently, the patient seems to be doing relatively well. The patient continues on O2, 3 L. He is not on amiodarone 0.5 mg/min. Labs, x-rays, and all medications are reviewed. We will continue to follow make recommendations along the way. The patient will eventually likely be discharged to a rehab facility. Dictation was produced using [employer] software. Please excuse any grammatical, word or spelling errors. Plan dated August 01, 2024. The patient is seen today in room 372. The patient has been weaned down to 2 L. He is not receiving any IV fluids. He is awake and alert. He has no specific complaints. He is laying in bed. The family is looking at possible discharge to a rehab facility. The exact location has not yet been determined. We will continue to follow the patient. Clinically he is well. No additional recommendations are made. Labs, x-rays, and all medications are reviewed. Prognosis is guarded. Dictation was produced using [employer] software. Please excuse any grammatical, word or spelling errors. Dated August 02, 2024. The patient is again seen today in room 372. The patient's oxygen has been weaned down. He is on room air. Saturations are 97%. The patient is not receiving any IV fluids. Labs, x-rays, and all medications are reviewed. We will continue to follow the patient. The patient is hoping to be discharged to rehab in the near future. Prognosis is guarded. Dictation was produced using [employer] software. Please excuse any grammatical, word or spelling errors. Time with Patient: Less than 30
[2024-08-02 11:27] LABS: Glucose,Whole Blood 118 mg/dL (70-110)
--- NOTE | 2024-08-02 14:36 | P.PN ---
Subjective Progress Note Date: 08/02/24 78-year-old male with PMH of rheumatoid arthritis, hypertension and BPH was brought to the emergency department via EMS for cardiopulmonary arrest. Recently admitted from 05/13-05/15 for type II [place] slightly with elevated troponins likely secondary to COVID-19 pneumonitis, Echo at that time showed LVEF of 55% and moderate pulmonary hypertension. His initial laboratory evaluation shows WBC of 19.7, RBC 6.95, MCV 74.8, APTT 39.7, bicarb 13, glu 313. Mag 2.6. BNP 2770. Trop 0.588 up to 21.1. Lactic acid 3.2. TSH 7.63, FT4 0.8. Procal 2.82. ABG pH 7.01, pCO2 91. COVID, RSV, Flu neg. CXR showed diffuse patchy infiltrate with groundglass opacities and bilateral pleural effusion. Brain CT showed no acute intracranial process. Chest CTA is negative for pulmonary embolism and patchy opacities throughout both lungs with small bilateral pleural effusions. EKG showed sinus bradycardia with a RBBB and T wave inversions in anteroseptal and lateral leads. Echocardiogram showed LVEF of 25 to 30% and ischemic car diomyopathy with apical hypokinesis. Intubated and transferred to ICU. Started on heparin drip. Underwent cardiac cath on 07/12 showing extremely calcified right and left coronary system with critical triple-vessel CAD, severely elevated left-sided filling pressure and successful placement of Impella CP in the LV. CT surgery consulted, ultimately would like patient to recover from his acute events to optimize surgical outcome. Noted R hemiparesis with inadequate neurologic recovery from a sedation holiday on 07/15, Neurology consulted, CT brain on 07/15 showed concern for suspected left parietal subacute CVA. CT brain was repeated again on 07/17 which at this time showed no acute intracranial p rocess. Patient underwent successful stenting to mid and proximal LAD on 07/17 with Impella removal. Extubated and re-intubated on 07/18. Underwent successful PCI OM1 of left circumflex and RCA on 07/20. Complicated with A-Fib RVR requiring CRISTINE and cardioversion on 07/21. Extubated on 07/23 and re-intubated for flash pulmonary edema. MRI brain showed acute left periventricular basal ganglion ischemic type changes, punctate ischemic changes of the left frontal and right occipital lobe. Extubated 07/26. He has been diuresing well. Plans for SNF at [facility] will need a LifeVest prior to discharge. 08/02 Patient was seen and examined. Nursing reports sundowning and difficulty sleeping at night. Hopeful discharge to SNF at [facility] tomorrow. Fitted with LifeVest. General: NAD Derm: warm, dry Head: atraumatic, normocephalic, symmetric Eyes: EOMI, no lid lag, anicteric sclera Mouth: no lip lesion, mucus membranes moist Cardiovascular: S1S2 reg, no murmur Lungs: Decreased BS bilateral, no accessory muscle use Ext: no gross muscle atrophy, no edema, no contractures Neuro: RUE 1-2/5, RLE 2/5 strength. CHAY and LLE 5/5 strength Psych: AO x 1-2 Based on my assessment of this patient, this patient meets a high complexity level of care. Out of the hospital cardiopulmonary arrest currently ventilator dependent: Patient is not to be re-intubated. Pulmonary on board. Antibiotics discontinued. NSTEMI status post stents to LAD, OM1 branch of LCx and mid RCA: ASA 81 mg PO QD. Lipitor 40 mg PO QHS. Brilinta 90 mg PO BID. Cardiogenic Shock status post Impella (07/12-07/17) and pressors Acute systolic CHF exacerbation with ejection fraction of 25 to 30%: Lasix 40 mg PO BID. Farxiga 10 mg PO QD. Metoprolol 25 mg PO BID. Entresto 24-26 mg PO BID. Aldactone 25 mg PO QD. LifeVest ordered by Cardiology. 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 Paroxysmal A-fib with the RVR, now in sinus rhythm, status post cardioversion: A miodarone 400 mg PO BID with taper. Metoprolol as above. Eliquis 5 mg PO BID. Hypertension: Metoprolol, Entresto, Aldactone as above. Euthyroid sick syndrome secondary above: Outpatient monitoring. Microcytic anemia: Transfuse if Hg < 7. History of COVID-19 pneumonitis Delirium: Add Seroquel 25 mg PO QHS. Resolved: Bandemia, AG metabolic acidosis, Lactic acidosis, HyperMag CODE STATUS: NO CODE. DVT Prophylaxis: Eliquis 5 mg PO BID. GI Prophylaxis: Protonix 40 mg IV QD. Designated medical POA if patient is not able to make medical decisions for themselves: Sister I have reviewed the following documentum consultant notes: Pulmonary I have reviewed the results of the following tests: I have ordered the following tests: I have discussed the care of this patient with the following independent histori an: RN. I have independently interpreted the following test below: I have discussed the management of this patient with the following physician: Objective - Vital Signs Vital signs: Vital Signs Temp 97.5 F L 08/02/24 07:46 Pulse 69 08/02/24 07:46 Resp 16 08/02/24 07:46 BP 159/66 08/02/24 07:46 Pulse Ox 97 08/02/24 07:46 FiO2 40 07/27/24 15:40 Intake & Output 08/01/24 08/02/24 08/02/24 18:59 06:59 18:59 Intake Total 540 240 10 Output Total 500 500 Balance 40 -260 10 Intake: IV 10 Invasive Line 2 10 Oral 540 240 Output: Urine 500 500 Other: Voiding Method External Catheter Diaper Diaper # Voids 1 # Bowel Movements 1 ABP, PAP, CO, CI - Last Documented Arterial Blood Pressure 156/40 - Labs CBC & Chem 7: 07/30/24 07:34 08/01/24 06:46 Labs: Abnormal Lab Results - Last 24 Hours (Table) 08/01/24 08/01/24 08/01/24 Range/Units 11:22 16:31 20:51 POC Glucose (mg/dL) 117 H 111 H 120 H (70-110) mg/dL 08/02/24 Range/Units 06:18 POC Glucose (mg/dL) 113 H (70-110) mg/dL
[2024-08-02 16:14] LABS: Glucose,Whole Blood 172 mg/dL (70-110)
--- NOTE | 2024-08-02 18:18 | P.PN ---
Subjective Progress Note Date: 08/02/24 PROGRESS NOTE The patient is a 78-year-old male who was admitted to the hospital on July 11 with cardiac arrest, severe cardiomyopathy and severe triple-vessel disease. He was evaluated by Dr. Abrams, underwent an Impella placement. His echocardiogram on presentation showed an ejection fraction 25 to 30% with anterior apical hypokinesis. On July 16 he underwent stenting of the LAD with removal of the Impella CP. He remains intubated, sedated. He is having episodes of paroxysmal atrial fibrillation with sinus bradycardia at times. He has good urine output. He is scheduled to undergo PCI of the RCA and the left circumflex today. He is on no vasopressors. He was found to have right-sided weakness suggestive of a cerebrovascular accident. Repeat echocardiogram on July 14 showed an e jection fraction of 40% while he was on the Impella. He was extubated but had to be reintubated because of respiratory distress. He has no evidence of ventricular ectopic activity. July 21: The patient remains intubated and sedated, in atrial fibrillation. He had episodes of recurrent rapid ventricle response. He is on beta-blockers, well- tolerated. He continues to be on IV amiodarone. He underwent stenting of the left circumflex and RCA yesterday. He is on no vasopressors. His urinary output is good. There is no evidence of ventricular tachycardia. July 22: The patient remains intubated he is more awake. He underwent CRISTINE guided cardioversion yesterday with yazidism of sinus mechanism. He continues to be in sinus mechanism today, his CRISTINE showed an ejection fraction of 35 to 40% with no reported segmental wall motion abnormality. His urinary output is stable. He is on no vasopressors. He has no evidence of ventricular ectopic activity. He continues to be on IV heparin and IV amiodarone. He is following commands. July 23: The patient remains intubated, attempt to wean yesterday were unsuccessful. He continues to be in sinus mechanism with sinus bradycardia but no pauses. He is sedated at this time. His urinary output has been stable. He had no evidence of ventricular ectopic activity. He has been started on oral amiodarone and on Eliquis. July 24: The patient is extubated, alert and oriented. Complaining of dryness in his eyes. He continues to be in sinus mechanism. He has no evidence of ventricular ectopic activity or recurrent atrial fibrillation. He denies any chest discomfort or significant dyspnea. He denies any dizziness or palpitations. July 25: The patient had worsening respiratory status yesterday night with progressive dyspnea and hypoxemia requiring BiPAP initially and subsequently intubated because of evidence of acute pulmonary edema. He continues to be in sinus mechanism on no vasopressors. His urinary output has been stable. He is on IV Lasix. There is no evidence of recurrent atrial fibrillation or evidence of ventricular tachyarrhythmia. July 26: The patient remains intubated, he is back in sinus mechanism. His urinary output is stable. He is on a low-dose of norepinephrine. He has no ventricular ectopic activity. He had sinus bradycardia earlier yesterday prior to converting to atrial fibrillation, he is in sinus bradycardia at this time. 07/27 Patient seen and examined. Patient is maintained on IV Lasix 40 mg IV 3 times a day. Creatinine stable at 1.2. Good urine output. Denies any chest pain or pressure. He was extubated was on BiPAP however currently tolerating nasal cannula. He is bradycardic with heart rates in the 40s however is also maintained on Precedex. 07/28 patient seen and examined. Hemoglobin 8.5, creatinine 1.0, sodium 146. Blood pressure well controlled with systolics 100s to 120s. Currently on 3 L nasal cannula. Denies any chest pain or pressure. He was briefly on BiPAP however has not required. He is receiving IV Lasix 40 mg IV every 8 hours with marginal urine output however has not been eating much and is getting mildly hypernatremic with sodium 146. 07/29 Patient seen and examined. Patient is been transferred from ICU to the cardiac stepdown unit. Blood pressure 163/69, heart rate in the 60s, pulse ox 96% on 4 L nasal cannula. Repeat blood work reveals hemoglobin 9.3, BUN 28 creatinine 1.17, potassium 3.5. Patient is resting comfortably in bed. He has been maintained on IV Lasix 40 mg every 8 hours. He does have a negative fluid balance of 1400 mL. Patient still has some confusion and also complaining of visual changes. His breathing is okay. 07/30/2024 Patient seen and examined. Blood pressure 143/60, heart rate in the 60s, pulse ox 98% on 4 L nasal cannula. Repeat blood work reveals hemoglobin 10.3. BUN 27 creatinine 1.09. Patient has been maintained on IV Lasix 40 mg every 8 hours. Patient was noted to have some improvement of his EF during CRISTINE. Will plan to obtain a limited echocardiogram to evaluate his EF. If its greater than 35%, we will not require LifeVest. 07/31/24 Patient seen and examined. Repeat echocardiogram limited study was obtained to evaluate EF which came back at 30 to 35%. Discussed with the patient and family that he will require LifeVest. Also, last evening, patient went into [facility] with RVR. He is now out of atrial fibrillation and we will transition IV amiodarone to oral. Blood pressure 151/66, heart rate 67, pulse ox 97% on 3 L nasal cannula. Repeat blood work reveals potassium 3.4 and will be replaced. BUN 30 creatinine 1.42. 08/01/2024 Seen and examined at bedside this a.m. Hemodynamically stable. Labs within range. August 02 Hemodynamics stable, alert oriented. LifeVest in place. No further alarms on telemetry. PHYSICAL EXAMINATION: LUNGS: Clear to auscultation HEART: Regular rate and rhythm, S1, S2. No S3. Systolic ejection murmur ABDOMEN: Soft, obese, no organomegaly EXTREMETIES: Trace edema, IMPRESSION: 1. Cardiac arrest with severe cardiomyopathy and cardiogenic shock status post Impella 2. Severe triple-vessel disease, status post stenting of the LAD and stenting of the left circumflex and RCA on July 20 3. Paroxysmal atrial fibrillation alternating with sinus bradycardia, back in sinus bradycardia at this time, post cardioversion 4. Evidence suggests right sided weakness related to a cerebrovascular accident 5. Respiratory failure with reintubation,, patient had to be reintubated because flash pulmonary edema 6. Acute renal injury 7. History of hypertension 8. Bradycardia, asymptomatic 9. Chronic systolic heart failure PLAN: Amiodarone 400 mg twice daily until 08/06/2024., then 200 mg twice daily for 1 week, then 200 mg daily Continue with heart failure regimen. Patient is currently on Eliquis 5 mg twice daily, aspirin 81 mg daily, atorvastatin 40 mg at bedtime, Farxiga 10 mg daily, Lopressor 25 mg twice daily, Entresto 24-26 mg twice daily, Brilinta 90 mg twice daily Lasix 40 mg p.o. twice daily LifeVest Objective - Vital Signs Vital signs: Vital Signs Temp 98.1 F 08/02/24 16:08 Pulse 62 08/02/24 16:08 Resp 18 08/02/24 16:08 BP 159/69 08/02/24 16:08 Pulse Ox 96 08/02/24 16:08 FiO2 40 07/27/24 15:40 Intake & Output 08/01/24 08/02/24 08/02/24 18:59 06:59 18:59 Intake Total 540 240 20 Output Total 500 500 300 Balance 40 -260 -280 Intake: IV 20 Invasive Line 2 20 Oral 540 240 Output: Urine 500 500 300 Other: Voiding Method External Catheter Diaper Diaper # Voids 1 # Bowel Movements 1 ABP, PAP, CO, CI - Last Documented Arterial Blood Pressure 156/40 - Labs CBC & Chem 7: 07/30/24 07:34 08/01/24 06:46 Labs: Abnormal Lab Results - Last 24 Hours (Table) 08/01/24 08/02/24 08/02/24 Range/Units 20:51 06:18 11:25 POC Glucose (mg/dL) 120 H 113 H 118 H (70-110) mg/dL 08/02/24 Range/Units 16:12 POC Glucose (mg/dL) 172 H (70-110) mg/dL
[2024-08-02 20:06] LABS: Glucose,Whole Blood 113 mg/dL (70-110)
[2024-08-02] MEDS: QUEtiapine 25 MG TAB PO SCH (21:15)
[2024-08-03 06:07] LABS: Glucose,Whole Blood 100 mg/dL (70-110)
[2024-08-03 08:10] VITALS: RESP 18; TEMP 98.2
--- NOTE | 2024-08-03 09:54 | P.DS ---
Providers Date of admission: 07/11/24 06:51 Attending physician: Deandre Balderas MD Consults: 07/11/24 06:48 Consult Physician Stat Consulting Provider: Rashaun Arteaga Consult Reason/Comments: Cardiac arrest Do you want consulting provider notified?: Already Contacted Consult Physician Urgent Consulting Provider: Omer Moyer Consult Reason/Comments: Cardiac arrest Do you want consulting provider notified?: Yes, Notify in am 07/13/24 13:22 Consult Physician Routine Consulting Provider: Vinod Brewer Consult Reason/Comments: cabg eval Do you want consulting provider notified?: Yes 07/14/24 15:22 Consult Physician Routine Consulting Provider: Urbano Arteaga Consult Reason/Comments: pt not moving right side during sedation holiday Do you want consulting provider notified?: Yes, Notify in am 07/16/24 19:22 Consult Physician Routine Consulting Provider: [facility] Consult Reason/Comments: Post Interventional patient Do you want consulting provider notified?: Already Contacted 07/20/24 13:14 Consult Physician Routine Consulting Provider: [facility] Consult Reason/Comments: Post Interventional patient Do you want consulting provider notified?: Already Contacted Primary care physician: Brandon Sandoval MD - Discharge Diagnosis(es) (1) Cardiac arrest He was intubated, placed on mechanical ventilation and liberated from mechanical ventilation on 07/26. Current Visit: Yes Status: Acute Hospital Course: 78-year-old male with PMH of rheumatoid arthritis, hypertension and BPH was brought to the emergency department via EMS for cardiopulmonary arrest. Recently admitted from 05/13-05/15 for type II [place] slightly with elevated troponins likely secondary to COVID-19 pneumonitis, Echo at that time showed LVEF of 55% and moderate pulmonary hypertension. His initial laboratory evaluation shows WBC of 19.7, RBC 6.95, MCV 74.8, APTT 39.7, bicarb 13, glu 313. Mag 2.6. BNP 2770. Trop 0.588 up to 21.1. Lactic acid 3.2. TSH 7.63, FT4 0.8. Procal 2.82. ABG pH 7.01, pCO2 91. COVID, RSV, Flu neg. CXR showed diffuse patchy infiltrate with groundglass opacities and bilateral pleural effusion. Brain CT showed no acute intracranial process. Chest CTA is negative for pulmonary embolism and patchy opacities throughout both lungs with small bilateral pleural effusions. EKG showed sinus bradycardia with a RBBB and T wave inversions in anteroseptal and lateral leads. Echocardiogram showed LVEF of 25 to 30% and ischemic cardiomyopathy with apical hypokinesis. Intubated and transferred to ICU. Started on heparin drip. Underwent cardiac cath on 07/12 showing extremely calcified right and left coronary system with critical triple-vessel CAD, severely elevated left-sided filling pressure and successful placement of Impella CP in the LV. CT surgery consulted, ultimately would like patient to recover from his acute events to optimize surgical outcome. Noted R hemiparesis with inadequate neurologic recovery from a sedation holiday on 07/15, Neurology consulted, CT brain on 07/15 showed concern for suspected left parietal subacute CVA. CT brain was repeated again on 07/17 which at this time showed no acute intracranial process. Patient underwent successful stenting to mid and proximal LAD on 07/17 with Impella removal. Extubated and re-intubated on 07/18. Underwent successful PCI OM1 of left circumflex and RCA on 07/20. Complicated with A-Fib RVR requiring CRISTINE and cardioversion on 07/21. Extubated on 07/23 and re- intubated for flash pulmonary edema. MRI brain showed acute left periventricular basal ganglion ischemic type changes, punctate ischemic changes of the left frontal and right occipital lobe. Extubated 07/26. He has been diuresing well. He had a lifevest placed and was discharged to snf on 08/03. Patient Condition at Discharge: Critical Plan - Discharge Summary Discharge Rx Participant: Yes New Discharge Prescriptions: New Spironolactone [Aldactone] 25 mg PO DAILY #1 tablet Ticagrelor [Brilinta] 90 mg PO BID #1 tab Apixaban [Eliquis] 5 mg PO BID #1 tab Sacubitril/Valsartan [Entresto 24 mg-26 mg Tablet] 1 each PO BID #1 tablet Dapagliflozin Propanediol [Farxiga] 10 mg PO DAILY #1 tab Atorvastatin [Lipitor] 40 mg PO HS #1 tablet Metoprolol Tartrate [Lopressor] 25 mg PO BID #1 tablet Amiodarone HCl [Pacerone] 400 mg PO BID #1 tablet QUEtiapine [SEROquel] 25 mg PO HS #1 tab Aspirin [[place] Aspirin EC] 81 mg PO DAILY #1 tab Furosemide [Lasix] 40 mg PO BID #1 tablet Discontinued hydrOXYzine HCL [Atarax] 25 mg PO HS PRN PRN Reason: Insomnia NIFEdipine [Adalat CC] 30 mg PO DAILY PRN PRN Reason: Blood Pressure - High No Action Tamsulosin HCl [Flomax] 0.4 mg PO HS Sennosides [Senokot] 8.6 mg PO DAILY PRN PRN Reason: Constipation Etanercept [Enbrel] 50 mg SQ MO #0 Multivitamins, Thera [Multivitamin (formulary)] 1 tab PO DAILY [place]-3/Dha/Epa/Fish Oil [Fish Oil 1,000 mg Softgel] 2 cap PO DAILY Discharge Medication List Multivitamins, Thera [Multivitamin (formulary)] 1 tab PO DAILY 05/13/24 [History] [place]-3/Dha/Epa/Fish Oil [Fish Oil 1,000 mg Softgel] 2 cap PO DAILY 05/13/24 [History] Sennosides [Senokot] 8.6 mg PO DAILY PRN 05/13/24 [History] Tamsulosin HCl [Flomax] 0.4 mg PO HS 05/13/24 [History] Etanercept [Enbrel] 50 mg SQ MO #0 05/15/24 [Rx] Amiodarone HCl [Pacerone] 400 mg PO BID #1 tablet 08/03/24 [Rx] Apixaban [Eliquis] 5 mg PO BID #1 tab 08/03/24 [Rx] Aspirin [[place] Aspirin EC] 81 mg PO DAILY #1 tab 08/03/24 [Rx] Atorvastatin [Lipitor] 40 mg PO HS #1 tablet 08/03/24 [Rx] Dapagliflozin Propanediol [Farxiga] 10 mg PO DAILY #1 tab 08/03/24 [Rx] Furosemide [Lasix] 40 mg PO BID #1 tablet 08/03/24 [Rx] Metoprolol Tartrate [Lopressor] 25 mg PO BID #1 tablet 08/03/24 [Rx] QUEtiapine [SEROquel] 25 mg PO HS #1 tab 08/03/24 [Rx] Sacubitril/Valsartan [Entresto 24 mg-26 mg Tablet] 1 each PO BID #1 tablet 08/03/24 [Rx] Spironolactone [Aldactone] 25 mg PO DAILY #1 tablet 08/03/24 [Rx] Ticagrelor [Brilinta] 90 mg PO BID #1 tab 08/03/24 [Rx] Follow up Appointment(s)/Referral(s): Brandon Sandoval MD [Primary Care Provider] - 1-2 days Discharge Disposition: TRANSFER TO SNF/ECF
[2024-08-03 11:40] LABS: Glucose,Whole Blood 153 mg/dL (70-110)
[2024-08-03 11:55] VITALS: BP 126/67; PULSE 65
--- NOTE | 2024-08-03 14:13 | P.PN ---
Subjective HISTORY OF PRESENT ILLNESS: The patient is a 78-year-old male who was admitted to the hospital on July 11 with cardiac arrest, severe cardiomyopathy and severe triple-vessel disease. He was evaluated by Dr. Abrams, underwent an Impella placement. His echocardiogram on presentation showed an ejection fraction 25 to 30% with anterior apical hy pokinesis. On July 16 he underwent stenting of the LAD with removal of the Impella CP. He remains intubated, sedated. He is having episodes of paroxysmal atrial fibrillation with sinus bradycardia at times. He has good urine output. He is scheduled to undergo PCI of the RCA and the left circumflex today. He is on no vasopressors. He was found to have right-sided weakness suggestive of a cerebrovascular accident. Repeat echocardiogram on July 14 showed an ejection fraction of 40% while he was on the Impella. He was extubated but had to be reintubated because of respiratory distress. He has no evidence of ventricular ectopic activity. July 21: The patient remains intubated and sedated, in atrial fibrillation. He had episodes of recurrent rapid ventricle response. He is on beta-blockers, well- tolerated. He continues to be on IV amiodarone. He underwent stenting of the left circumflex and RCA yesterday. He is on no vasopressors. His urinary output is good. There is no evidence of ventricular tachycardia. July 22: The patient remains intubated he is more awake. He underwent CRISTINE guided cardioversion yesterday with oriental orthodox of sinus mechanism. He continues to be in sinus mechanism today, his CRISTINE showed an ejection fraction of 35 to 40% with no reported segmental wall motion abnormality. His urinary output is stable. He is on no vasopressors. He has no evidence of ventricular ectopic activity. He continues to be on IV heparin and IV amiodarone. He is following commands. July 23: The patient remains intubated, attempt to wean yesterday were unsuccessful. He continues to be in sinus mechanism with sinus bradycardia but no pauses. He is sedated at this time. His urinary output has been stable. He had no evidence of ventricular ectopic activity. He has been started on oral amiodarone and on Eliquis. July 24: The patient is extubated, alert and oriented. Complaining of dryness in his eyes. He continues to be in sinus mechanism. He has no evidence of ventricular ectopic activity or recurrent atrial fibrillation. He denies any chest discomfort or significant dyspnea. He denies any dizziness or palpitations. July 25: The patient had worsening respiratory status yesterday night with progressive dyspnea and hypoxemia requiring BiPAP initially and subsequently intubated because of evidence of acute pulmonary edema. He continues to be in sinus mechanism on no vasopressors. His urinary output has been stable. He is on IV Lasix. There is no evidence of recurrent atrial fibrillation or evidence of ventricular tachyarrhythmia. July 26: The patient remains intubated, he is back in sinus mechanism. His urinary output is stable. He is on a low-dose of norepinephrine. He has no ventricular ectopic activity. He had sinus bradycardia earlier yesterday prior to converting to atrial fibrillation, he is in sinus bradycardia at this time. 07/27 Patient seen and examined. Patient is maintained on IV Lasix 40 mg IV 3 times a day. Creatinine stable at 1.2. Good urine output. Denies any chest pain or pr essure. He was extubated was on BiPAP however currently tolerating nasal cannula. He is bradycardic with heart rates in the 40s however is also maintained on Precedex. 07/28 patient seen and examined. Hemoglobin 8.5, creatinine 1.0, sodium 146. Blood pressure well controlled with systolics 100s to 120s. Currently on 3 L nasal cannula. Denies any chest pain or pressure. He was briefly on BiPAP however has not required. He is receiving IV Lasix 40 mg IV every 8 hours with marginal urine output however has not been eating much and is getting mildly hypernatremic with sodium 146. 07/29 Patient seen and examined. Patient is been transferred from ICU to the cardiac stepdown unit. Blood pressure 163/69, heart rate in the 60s, pulse ox 96% on 4 L nasal cannula. Repeat blood work reveals hemoglobin 9.3, BUN 28 creatinine 1.17, potassium 3.5. Patient is resting comfortably in bed. He has been maintained on IV Lasix 40 mg every 8 hours. He does have a negative fluid balance of 1400 mL. Patient still has some confusion and also complaining of visual changes. His breathing is okay. 07/30/2024 Patient seen and examined. Blood pressure 143/60, heart rate in the 60s, pulse ox 98% on 4 L nasal cannula. Repeat blood work reveals hemoglobin 10.3. BUN 27 creatinine 1.09. Patient has been maintained on IV Lasix 40 mg every 8 hours. Patient was noted to have some improvement of his EF during CRISTINE. Will plan to obtain a limited echocardiogram to evaluate his EF. If its greater than 35%, we will not require LifeVest. 07/31/24 Patient seen and examined. Repeat echocardiogram limited study was obtained to evaluate EF which came back at 30 to 35%. Discussed with the patient and family that he will require LifeVest. Also, last evening, patient went into A-fib with RVR. He is now out of atrial fibrillation and we will transition IV amiodarone to oral. Blood pressure 151/66, heart rate 67, pulse ox 97% on 3 L nasal cannula. Repeat blood work reveals potassium 3.4 and will be replaced. BUN 30 creatinine 1.42. 08/01/2024 Seen and examined at bedside this a.m. Hemodynamically stable. Labs within range. August 02 Hemodynamics stable, alert oriented. LifeVest in place. No further alarms on telemetry. August 03, 2024 Patient examined this morning at the bedside. Patient currently denies chest pain or pressure. He denies shortness of breath. Vital signs are stable. Patient received his LifeVest yesterday. Vital signs are stable. Discharge plan is in place for ECF today. PHYSICAL EXAM: VITAL SIGNS: Reviewed. GENERAL: Well-developed in no acute distress. NECK: Supple. No JVD or thyromegaly LUNGS: Respirations even and unlabored. Lungs essentially clear to auscultation bilaterally. HEART: Regular rate and rhythm. S1 and S2 heard. EXTREMITIES: Normal range of motion. No clubbing or cyanosis. Peripheral pulses intact. No lower extremity edema ASSESSMENT: 1. Cardiac arrest with severe cardiomyopathy and cardiogenic shock status post Impella 2. Severe triple-vessel disease, status post stenting of the LAD and stenting of the left circumflex and RCA on July 20 3. Paroxysmal atrial fibrillation alternating with sinus bradycardia, back in sinus bradycardia at this time, post cardioversion 4. Evidence suggests right sided weakness related to a cerebrovascular accident 5. Respiratory failure with reintubation,, patient had to be reintubated because flash pulmonary edema 6. Acute renal injury 7. History of hypertension 8. Bradycardia, asymptomatic 9. Chronic systolic heart failure PLAN: Continue current cardiac medications Patient is stable for discharge to ECF today from a cardiac standpoint Patient received his LifeVest yesterday Patient to follow-up postdischarge with Dr. Abrams Nurse practitioner note has been reviewed by physician. Signing provider agrees with the documented findings, assessment, and plan of care documented by C[employer]IST as a scribe. Objective - Vital Signs Vital signs: Vital Signs Temp 98.2 F 08/03/24 08:09 Pulse 65 08/03/24 11:54 Resp 18 08/03/24 11:54 BP 126/67 08/03/24 11:54 Pulse Ox 97 08/03/24 11:54 FiO2 40 07/27/24 15:40 Intake & Output 08/02/24 08/03/24 08/03/24 18:59 06:59 18:59 Intake Total 20 250 668 Output Total 300 750 Balance -280 -500 668 Intake: IV 20 10 10 Invasive Line 2 20 10 10 Oral 240 658 Output: Urine 300 750 Other: Voiding Method Diaper Diaper Diaper # Voids 1 # Bowel Movements 1 ABP, PAP, CO, CI - Last Documented Arterial Blood Pressure 156/40 - Labs CBC & Chem 7: 07/30/24 07:34 08/01/24 06:46 Labs: Abnormal Lab Results - Last 24 Hours (Table) 08/02/24 08/02/24 08/03/24 Range/Units 16:12 20:05 11:38 POC Glucose (mg/dL) 172 H 113 H 153 H (70-110) mg/dL
--- NOTE | 2024-08-03 15:53 | P.PN ---
Subjective Progress Note Date: 08/03/24 on today's evaluation of 08/03/2024, the patient is on room air oxygen and the patient is calm and comfortable. No significant respiratory distress. He continues to have weakness on the right side related to an acute CVA. He is post cardiogenic shock, post prolonged ventilator dependent respiratory failure and post acute cardiac arrest. The patient has had 8 hours rehabilitation. No new labs from today. Medication was reviewed and the patient remains on a combination of Brilinta and Eliquis. The patient remains on metoprolol 25 mg p.o. twice a day and Entresto Aldactone and Farxiga. He remains also on amiodarone 4 mg p.o. twice a day. Awake and alert and communicating. No fever. No other complaints otherwise for now. Objective - Vital Signs Vital signs: Vital Signs Temp 98.2 F 08/03/24 08:09 Pulse 65 08/03/24 11:54 Resp 18 08/03/24 11:54 BP 126/67 08/03/24 11:54 Pulse Ox 97 08/03/24 11:54 FiO2 40 07/27/24 15:40 Intake & Output 08/02/24 08/03/24 08/03/24 18:59 06:59 18:59 Intake Total 20 250 128 Output Total 300 750 Balance -280 -500 128 Intake: IV 20 10 10 Invasive Line 2 20 10 10 Oral 240 118 Output: Urine 300 750 Other: Voiding Method Diaper Diaper Diaper ABP, PAP, CO, CI - Last Documented Arterial Blood Pressure 156/40 - Exam No acute distress, oriented 3. No respiratory distress. Currently on room air. HEENT examination is grossly unremarkable. Mucous membranes are moist. No oral lesions. Neck supple. Full range of motion. No adenopathy thyromegaly or neck vein distention. Cardiovascular examination reveals regular rhythm rate. S1-S2 normal. No S3 or S4. No discernible murmur noted. Lungs reveal mostly clear breath sounds. Breath sounds are equal bilaterally. Minimal scattered rhonchi. No wheezes. Breath sounds equal. Abdomen soft bowel sounds are heard. No masses or tenderness. Extremities are intact. No cyanosis clubbing or edema. Skin is without rash or lesion. Neurologic examination shows a left-sided weakness related to an acute CVA and motor function of the right upper and right lower extremities 4 out of 5. Awake and alert and following commands and answering questions appropriately. - Labs CBC & Chem 7: 07/30/24 07:34 08/01/24 06:46 Labs: Abnormal Lab Results - Last 24 Hours (Table) 08/02/24 08/02/24 08/03/24 Range/Units 16:12 20:05 11:38 POC Glucose (mg/dL) 172 H 113 H 153 H (70-110) mg/dL Assessment and Plan Plan: Outside the hospital cardiac arrest requiring 5 minutes of CPR prior to return of spontaneous circulation, Acute hypoxic respiratory failure secondary to above. Recovered. The patient is status post pulmonary edema and cardiogenic shock. The patient is currently on room air oxygen. Pulmonary edema with bilateral pleural effusions, improved Acute non-ST segment elevation myocardial infarction, status post cardiac catheterization indicating triple-vessel coronary artery disease, status post cardiac catheterization and stenting x 2 of the mid and proximal LAD and the patient is currently on a combination of aspirin and Brilinta Severe ischemic cardiomyopathy with an ejection fraction of 25 to 30% and segmental wall motion abnormalities. Limited echocardiogram shows impaired LV function and estimated ejection fraction is at 40% and the patient has a L ifeVest for now Acute CVA with motor weakness in the right side, right upper extremity more than right lower extremity. Acute kidney injury, recovered Recent discharge in May 2024 for atypical chest pain and COVID-19 infection/pneumonitis Rheumatoid arthritis Hypertension Benign prostatic hyperplasia Thrombocytopenia, platelet count is improving Anemia, multifactorial, acute, and hemoglobin stable for now. Plan: Aspirin Brilinta and anticoagulation with Eliquis Patient is on metoprolol The patient is on Farxiga and Entresto and Aldactone Continue amiodarone LifeVest Discharge to rehabilitation.
== END 2024-08-03 13:51 | DRG 215 ==
LOC: EC 02:18 → 2SICU 06:51 → 3SCARD 07-28 19:01
PROVIDERS: ADMIT Internal Medicine; ATTEND Internal Medicine
PROC: 02HV33Z Insertion of Infusion Device into Superior Vena Cava, Percutaneous Approach (ICD-10-PCS; 2024-07-11)
PROC: 03HY32Z Insertion of Monitoring Device into Upper Artery, Percutaneous Approach (ICD-10-PCS; 2024-07-11)
PROC: 5A1955Z Respiratory Ventilation, Greater than 96 Consecutive Hours (ICD-10-PCS; 2024-07-11)
PROC: 3E033XZ Introduction of Vasopressor into Peripheral Vein, Percutaneous Approach (ICD-10-PCS; 2024-07-11)
PROC: 06HY33Z Insertion of Infusion Device into Lower Vein, Percutaneous Approach (ICD-10-PCS; 2024-07-11)
PROC: 0BH17EZ Insertion of Endotracheal Airway into Trachea, Via Natural or Artificial Opening (ICD-10-PCS; 2024-07-11)
PROC: 5A0221D Assistance with Cardiac Output using Impeller Pump, Continuous (ICD-10-PCS; 2024-07-12)
PROC: 4A023N7 Measurement of Cardiac Sampling and Pressure, Left Heart, Percutaneous Approach (ICD-10-PCS; 2024-07-12)
PROC: B2111ZZ Fluoroscopy of Multiple Coronary Arteries using Low Osmolar Contrast (ICD-10-PCS; 2024-07-12)
PROC: 02HA3RZ Insertion of Short-term External Heart Assist System into Heart, Percutaneous Approach (ICD-10-PCS; 2024-07-12 10:35)
PROC: 02PA3RZ Removal of Short-term External Heart Assist System from Heart, Percutaneous Approach (ICD-10-PCS; 2024-07-16)
PROC: B240ZZ3 Ultrasonography of Single Coronary Artery, Intravascular (ICD-10-PCS; 2024-07-16)
PROC: 027035Z Dilation of Coronary Artery, One Artery with Two Drug-eluting Intraluminal Devices, Percutaneous Approach (ICD-10-PCS; 2024-07-16 12:00)
PROC: 5A09357 Assistance with Respiratory Ventilation, Less than 24 Consecutive Hours, Continuous Positive Airway Pressure (ICD-10-PCS; 2024-07-17)
PROC: 5A1945Z Respiratory Ventilation, 24-96 Consecutive Hours (ICD-10-PCS; 2024-07-18)
PROC: 0BH17EZ Insertion of Endotracheal Airway into Trachea, Via Natural or Artificial Opening (ICD-10-PCS; 2024-07-18)
PROC: 4A023N7 Measurement of Cardiac Sampling and Pressure, Left Heart, Percutaneous Approach (ICD-10-PCS; 2024-07-20)
PROC: B2111ZZ Fluoroscopy of Multiple Coronary Arteries using Low Osmolar Contrast (ICD-10-PCS; 2024-07-20)
PROC: B241ZZ3 Ultrasonography of Multiple Coronary Arteries, Intravascular (ICD-10-PCS; 2024-07-20)
PROC: 027135Z Dilation of Coronary Artery, Two Arteries with Two Drug-eluting Intraluminal Devices, Percutaneous Approach (ICD-10-PCS; principal; 2024-07-20 12:00)
PROC: 5A2204Z Restoration of Cardiac Rhythm, Single (ICD-10-PCS; 2024-07-21)
PROC: B246ZZ4 Ultrasonography of Right and Left Heart, Transesophageal (ICD-10-PCS; 2024-07-21)
PROC: 03HB33Z Insertion of Infusion Device into Right Radial Artery, Percutaneous Approach (ICD-10-PCS; 2024-07-25)
DX: I21.4 Non-ST elevation (NSTEMI) myocardial infarction (principal); I46.9 Cardiac arrest, cause unspecified; R57.0 Cardiogenic shock; I50.23 Acute on chronic systolic (congestive) heart failure; J69.0 Pneumonitis due to inhalation of food and vomit; J80 Acute respiratory distress syndrome; I63.89 Other cerebral infarction; G81.91 Hemiplegia, unspecified affecting right dominant side; G93.1 Anoxic brain damage, not elsewhere classified; N17.9 Acute kidney failure, unspecified; F05 Delirium due to known physiological condition; I25.10 Atherosclerotic heart disease of native coronary artery without angina pectoris; I27.20 Pulmonary hypertension, unspecified; D69.6 Thrombocytopenia, unspecified; E83.41 Hypermagnesemia; I11.0 Hypertensive heart disease with heart failure; Z66 Do not resuscitate; E07.81 Sick-euthyroid syndrome; I25.5 Ischemic cardiomyopathy; I48.0 Paroxysmal atrial fibrillation; M06.9 Rheumatoid arthritis, unspecified; N40.0 Benign prostatic hyperplasia without lower urinary tract symptoms; D50.9 Iron deficiency anemia, unspecified; Z86.16 Personal history of COVID-19; E87.6 Hypokalemia; I08.3 Combined rheumatic disorders of mitral, aortic and tricuspid valves; I45.10 Unspecified right bundle-branch block; I25.2 Old myocardial infarction; Z79.899 Other long term (current) drug therapy; Z87.01 Personal history of pneumonia (recurrent)
CPT/HCPCS: 31500; 33990; 36415; 36556; 36600; 70450; 70551; 71045; 71275; 72125; 74230; 80048; 80053; 80061; 81001; 82140; 82607; 82746; 82805; 83036; 83605; 83615; 83735; 83880; 84100; 84132; 84145; 84439; 84443; 84484; 85025; 85027; 85384; 85610; 85730; 87040; 87070; 87205; 87449; 87636; 92972; 92978; 92979; 93005; 93306; 93308; 93312; 93320; 93325; 93458; 93880; 94002; 94003; 94640; 94660; 94760; 96361; 96365; 96366; 96367; 96368; 96375; 99291; 99292